=== PATIENT | male | born 1950 | race Caucasian/White ===

== ENCOUNTER 2023-07-30 12:25 | Outpatient (OUT) | payer OTHER, SELFPAY ==
[2023-07-30 13:43] LABS: Basophils Absolute Auto 0.1 10^3/uL (0.0-0.1); Basophils Percent Auto 0.7 % (0.2-2.0); Eosinophils Absolute Auto 0.5 10^3/uL (0.0-0.7); Eosinophils Percent Auto 4.8 % (0.9-7.0); Hematocrit 39.6 % (42.0-54.0); Hemoglobin 12.8 g/dL (14.0-18.0); Immature Granulocytes Abs Auto 0.03 10^3/uL (0.00-0.03); Immature Granulocytes Pct Auto 0.3 % (0.0-0.5); Lymphocytes Absolute Auto 2.3 10^3/uL (1.2-3.8); Mean Corpuscular HGB Conc 32.3 g/dL (29.9-35.2); Mean Corpuscular Volume 95.9 fL (80.0-94.0); Mean Platelet Volume 10.6 fL (9.5-13.5); Monocytes Absolute Auto 0.7 10^3/uL (0.3-0.8); Monocytes Percent Auto 6.7 % (1.7-12.0); Neutrophils Absolute Auto 6.4 10^3/uL (1.4-6.5); Neutrophils Percent Auto 64.5 % (43.0-75.0); Platelet Count 221 10^3/uL (150-450); Red Blood Count 4.13 10^6/uL (4.70-6.10); Red Cell Distribution Width 13.3 % (11.0-15.0)
[2023-07-30 14:50] LABS: Anion Gap 10.8; Calcium 8.6 mg/dL (8.5-10.1); Carbon Dioxide 28.7 mmol/L (21.0-32.0); Chloride 103 mmol/L (98-107); Estimated GFR (African America 49 (>=60); Estimated GFR (Non-African Ame 40 (>=60); Glucose 137 mg/dL (74-106); Potassium 4.5 mmol/L (3.5-5.1); Sodium 138 mmol/L (136-145)
== END 2023-07-30 12:26 | disposition home or self-care (01) ==
LOC: LAB 12:32
PROVIDERS: PCP Family Medicine; Visit Provider Internal Medicine Cardiovascular Disease
DX: I48.91 Unspecified atrial fibrillation (principal)
CPT/HCPCS: 36415; 80048; 85025

== ENCOUNTER 2023-10-13 06:51 | Outpatient (OUT) | payer OTHER, SELFPAY ==
--- OUTSIDE RECORDS SUMMARY | 2023-10-13 06:56 | XMS_ITS | CCD ---
Author Name Unknown Address [address] [place] [address] Organization [facility] Care Team Providers Care Machine Lead Burner Name Role Phone PHYSICIAN, DEFAULT Unavailable Unavailable PHYSICIAN, DEFAULT Unavailable Unavailable Jonnathan Amaya Attending Unavailable Iker Harrison Primary Care Unavailable Iker Harrison Unavailable Unavailable Unavailable Iker Harrison Primary Care Physician [phone] SHEKH[address] ., DR DONG Primary Care Unavailable HOY ., DR DONG Admitting Unavailable HOY ., DR DONG Attending Unavailable HOY ., DR DONG Consulting Unavailable FAWWAD, TRONCOSO H Attending Unavailable FAWWAD, TRONCOSO H Admitting Unavailable HOY ., DR DONG Primary Care Unavailable HOY ., DR DONG Primary Care Unavailable JONES ., DR ELLIS Consulting Unavailable JONES ., DR ELLIS Admitting Unavailable JONES ., DR ELLIS Attending Unavailable HOY ., DR DONG Primary Care Unavailable HOY ., DR DONG Admitting Unavailable HOY ., DR DONG Primary Care Unavailable HOY ., DR DONG Attending Unavailable HOY ., DR DONG Consulting Unavailable FAWWAD, TRONCOSO H Attending Unavailable FAWWAD, TRONCOSO H Admitting Unavailable HOY ., DR DONG Primary Care Unavailable FAWWAD, TRONCOSO H Attending Unavailable FAWWAD, TRONCOSO H Admitting Unavailable HOY ., DR DONG Primary Care Unavailable PERLA HUNTERA Admitting Unavailable GAVINO HUNTER Attending Unavailable GAVINO HUNTER Consulting Unavailable HOY ., DR DONG Primary Care Unavailable FAWWAD, TRONCOSO H Admitting Unavailable FAWWAD, TRONCOSO H Attending Unavailable HOY ., DR DONG Primary Care Unavailable FAWWAD, TRONCOSO H Attending Unavailable FAWWAD, TRONCOSO H Admitting Unavailable HOY ., DR DONG Primary Care Unavailable FAWWAD, TRONCOSO H Attending Unavailable FAWWAD, TRONCOSO H Admitting Unavailable HOY ., DR DONG Primary Care Unavailable HOY ., DR DONG Primary Care Unavailable FAWWAD, TRONCOSO H Attending Unavailable FAWWAD, TRONCOSO H Admitting Unavailable HOY ., DR DONG Primary Care Unavailable FAWWAD, TRONCOSO H Attending Unavailable FAWWAD, TRONCOSO H Admitting Unavailable HOY ., DR DONG Primary Care Unavailable FAWWAD, TRONCOSO H Attending Unavailable FAWWAD, TRONCOSO H Admitting Unavailable FAWWAD, TRONCOSO H Attending Unavailable FAWWAD, TRONCOSO H Admitting Unavailable HOY ., DR DONG Primary Care Unavailable HOY ., DR DONG Primary Care Unavailable HOY ., DR DONG Admgil Unavailable HOY ., DR DONG Attending Unavailable HOY ., DR DONG Consulting Unavailable HOY ., DR DONG Primary Care Unavailable GAVINO HUNTER Consulting Unavailable ELSAPERLAA Admitting Unavailable GAVINO HUNTER Attending Unavailable HOY ., DR DONG Primary Care Unavailable MARKER ., DR BRIONES Admitting Unavailable MARKER ., DR BRIONES Attending Unavailable MARKER ., DR BRIONES Consulting Unavailable MARLENI MAHAJAN Consulting Unavailable NICK CHAIREZ Consulting Unavailable HAY ., DR GOMEZ Admitting Unavailable HOY ., DR DONG Primary Care Unavailable ZIEBER, DR TONY Wyatt Consulting Unavailable HAY ., DR GOMEZ Attending Unavailable RUSTAM ., SAYRA CALVO Consulting Unavailrhona e HOY ., DR DONG Admgil Unavailable HOY ., DR DONG Primary Care Unavailable HOY ., DR DONG Attending Unavailable HOY ., DR DONG Consulting Unavailable GONCALVES ., DR RONIT West Consulting Unavailable RADHA RODRIGUEZ Consulting Unavailable MARI SO Consulting Unavailable ELSAGAVINO RITTER Consulting Unavailable FERNANDO GONZÁLES Consulting Unavailable AMEYA TANNER Consulting Unavailable HOY ., DR DONG Admitting Unavailable HOY ., DR ODNG Primary Care Unavailable HOY ., DR DONG Attending Unavailable HOY ., DR DONG Admgil Unavailable HOY ., DR DONG Primary Care Unavailable HOY ., DR DONG Attending Unavailable HOY ., DR DONG Consulting Unavailable ZIEBER, DR JIMENEZ R Consulting Unavailable SHEKHAR ., DR DONG Primary Care Unavailable SHAIKH Ankit REYNOLDS Attending Unavailable SHAIKH Ankit REYNOLDS Admitting Unavailable Caleb JONES Attending Unavailable Willie Vargas Attending Unavailab Willie Marinelli Admitting Unavailab Iker Ziegler Primary Care Unavailable WESLEY SAENZ Attending Unavailable WESLEY SEANZ Admitting Unavailable WESLEY SAENZ Referring Unavailable WESLEY SAENZ Attending Unavailable MYCHAL HICKMAN Attending Unavailable GAVINO HUNTER Attending Unavailable WESLEY SAENZ Attending Unavailable SKYLER BABCOCK Attending Unavailable WESLEY SAENZ Referring Unavailable Unavailable Unavailable Unavailable Allergies Allergy Classification Reported Allergen(s) Allergy Type Date of Onset Reaction(s) Facility (4 sources) Azithromycin; Translations: [Zithromax TABS] Drug Allergy Lip swelling (finding) [place] [id number] Work Phone: (3 sources) Acetaminophen / oxyCODONE; Translations: [acetaminophen-ox ycodone] Drug Allergy 8 Hallucinations (finding) [facility] [place] (2 sources) Azithromycin; Translations: [Zithromax] Drug Allergy 4 [facility] (3 sources) Azithromycin; Translations: [azithromycin] Drug Allergy 1 Swelling of Lip/Tongue/Throat [facility] (1 source) Acetaminophen / oxyCODONE; Translations: [OXYCODONE-ACETAM INOPHEN] Drug Allergy 8 [facility] Repository Medications Current Medications Medication Drug Class(es) Dates Sig (Normalized) Sig (Original) cetirizine hydrochloride 10 mg oral tablet (2 sources) Histamine-1 Receptor Antagonist Start: 12-06-2021 take 1 tablet by mouth once daily cetirizine 10 mg Tab 10 mg = 1 tab(s), Oral, Daily, Refills(s) 0 Start Date: 12/06/21 Status: Ordered cyclobenzaprine hydrochloride 10 mg oral tablet (2 sources) Muscle Relaxant Start: 12-06-2021 take 1 tablet by mouth three times daily as needed for muscle spasms cyclobenzaprine 10 mg Tab 10 mg = 1 tab(s), Oral, TID, PRN for spasm Start Date: 12/06/21 Status: Ordered digoxin 0.125 mg oral tablet (6 sources) Cardiac Glycoside Start: 01-19-2021 take 1 tablet by mouth once daily digoxin 125 mcg (0.125 mg) Tab mcg tab(s), Oral, Daily, Refills(s) 0 Start Date: 01/19/21 Status: Ordered Start: 01-19-2021 take 1 tablet by lou th once daily digoxin 125 mcg (0.125 mg) Tab mcg tab(s), Oral, Daily, Refills(s) 0 Start Date: 01/19/21 Status: Ordered Start: 10-14-2018 take 0.125 mg by lou th once daily Digoxin Active 0.125 MG Oral Daily October 14, 2018 1:48pm take 1 tablet by lou th once daily Digoxin 125 MCG Oral Tablet TAKE 1 TABLET DAILY. Quantity: 90 Refills: 3 Ordered: 04-Sep-2021 DO Active Humalog KwikPen (2 sources) Start: 12-06-2021 Humalog KwikPe n 15 unit(s), SubCutaneous, Refills(s) 0 Start Date: 12/06/21 Status: Ordered insulin glargine 100 unt/ml injectable solution (4 sources) Insulin Analog Start: 06-13-2021 Insulin Glargi ne (Lantus U-100 Insulin) 100 unit/mL solution Active 0 .ROUTE .COMPLEX June 13, 2021 12:00am 40-60 at night depending on blood sugar Start: 12-14-2019 inject 60 [IU] by jeffries bcutaneous injection once daily at bedtime Lantus 60 unit(s), SubCutaneous, Once a day (at bedtime) Start Date: 12/14/19 Status: Ordered Lantus 100 UNIT/ ML Subcutaneous Solution USE DIRECTED. Quantity: 0 Refills: 0 Ordered: 04-Sep-2021 DO Active 3 ml insulin lispro 100 unt/ml pen injector (3 sources) Insulin Analog Start: 10-14-2018 inject 25 [IU] by subcutaneous injection twice daily Insulin Lispro Active 25 UNIT Subcutaneous Twice daily October 14, 2018 1:48pm Start: 10-14-2018 Insulin Lispro (Humalog Kwikpen Insulin) 100 unit/mL Insulin Pen Active 0 .ROUTE .COMPLEX October 14, 2018 1:00am 10-15 with meals depending on blood sugar lisinopril 2.5 mg oral tablet (7 sources) Angiotensin Converting Enzyme Inhibitor Start: 12-06-2021 take 1 tablet by mouth once daily lisinopril 2.5 mg Tab 2.5 mg = 1 tab(s), Oral, Daily, Refills(s) 0 Start Date: 12/06/21 Status: Ordered Start: 10-14-2018 take 2.5 mg by mouth once cole y Lisinopril Active 2.5 MG Oral Daily October 14, 2018 1:48pm Start: 10-14-2018 take 10 mg by mouth once daily Lisinopril Active 10 MG PO Daily October 14, 2018 1:00am take 1 tablet by lou th once daily Lisinopril 10 MG Oral Tablet Take 1 tablet daily Quantity: 90 Refills: 3 Ordered: 05-Jun-2021 Chester Ahn DO Active metFORMIN hydrochloride 1000 mg oral tablet (6 sources) Biguanide Start: 10-14-2018 take 1000 mg by mouth once daily Metformin Active 1000 MG Oral Daily October 14, 2018 1:48pm Start: 10-14-2018 take 1000 mg by mout h twice daily metformin 1,000 mg, Oral, BID Start Date: 12/14/19 Status: Ordered take 1 tablet by lou th every twelve hours metFORMIN HCl - 1000 MG Oral Tablet TAKE 1 TABLET EVERY 12 HOURS. Quantity: 0 Refills: 0 Ordered: 04-Sep-2021 DO Active metoprolol tartrate 50 mg oral tablet (6 sources) beta-Adrenergic Jose Start: 12-06-2021 take 1 tablet by mouth twice daily Metoprolol tartrate 50 mg Tab 50 mg = 1 tab(s), Oral, BID, Refills(s) 0 Start Date: 12/06/21 Status: Ordered Start: 10-14-2018 take 50 mg by mouth twice cole y Metoprolol Tartrate Active 50 MG Oral Twice daily October 14, 2018 1:48pm take 1 tablet by lou th once daily Metoprolol Tartrate 50 MG Oral Tablet TAKE 1 TABLET EVERY 12 HOURS DAILY. Quantity: 180 Refills: 3 Ordered: 04-Sep-2021 DO Active nitroglycerin 0.4 mg sublingual tablet (3 sources) Nitrate Vasodilator Start: 10-14-2018 Nitroglycerin Active 0.4 MG Sublingual every 5 to 15 minutes October 14, 2018 1:48pm pantoprazole 40 mg extended release oral tablet (6 sources) Proton Pump Inhibitor Start: 12-14-2019 take 40 mg by mouth once daily pantoprazole 40 mg, Oral, Daily Start Date: 12/14/19 Status: Ordered Start: 10-14-2018 take 40 mg by mouth once daily Pantoprazole Active 40 MG Oral Daily October 14, 2018 1:48pm prazosin 2 mg oral capsule (1 source) alpha-Adrenergic Jose Start: 06-20-2021 take 2 mg by mouth once daily at bedtime Prazosin Active 2 MG PO Daily at bedtime June 20, 2021 12:00am sertraline 100 mg oral tablet (4 sources) Serotonin Reuptake Inhibitor Start: 06-20-2021 Zoloft 100 mg Tab as directed, Refills(s) 0 Start Date: 12/06/21 Status: Ordered simvastatin 20 mg oral tablet (6 sources) HMG-CoA Reductase Inhibitor Start: 10-14-2018 take 20 mg by mouth once daily at bedtime simvastatin 20 mg, Oral, Once a day (at bedtime) Start Date: 12/14/19 Status: Ordered tamsulosin hydrochloride 0.4 mg oral capsule (3 sources) alpha-Adrenergic Jose Start: 12-14-2019 take 1 capsule by mouth once daily tamsulosin 0.4 mg Cap 0.4 mg = 1 cap(s), Oral, Daily Start Date: 12/14/19 Status: Ordered traZODone hydrochloride 50 mg oral tablet (4 sources) Serotonin Reuptake Inhibitor Start: 06-20-2021 take 1 tablet by mouth once daily at bedtime traZODONE 50 mg Tab 50 mg = 1 tab(s), Oral, Once a day (at bedtime), Refills(s) 0 Start Date: 12/06/21 Status: Ordered Warfarin (6 sources) Vitamin K Antagonist Start: 12-14-2019 warfarin See Instructions, 2 mg as directed Start Date: 12/14/19 Status: Ordered Start: 10-14-2018 take 2 mg by mouth once daily Warfarin Active 2 MG Oral Daily October 14, 2018 1:48pm Warfarin Sodium 2 MG Oral Tablet as directed by [facility] Quantity: 0 Refills: 0 Ordered: 04-Sep-2021 DO Active Completed/Discontinued Medications Medication Drug Class(es) Dates Sig (Normalized) Sig (Original) cholecalciferol 0.05 mg oral tablet (1 source) Vitamin D take 1 tablet by mouth once daily Vitamin D3 50 MCG (1999) Oral Tablet Take 1 tablet daily Quantity: 0 Refills: 0 Ordered: 04-Sep-2021 DO Active insulin aspart, human 100 unt/ml injectable solution (1 source) Insulin Analog NovoLOG 100 UNIT /ML Subcutaneous Solution INJECT SUBCUTANEOUSLY DIRECTED. Quantity: 0 Refills: 0 Ordered: 04-Sep-2021 DO Active Problems Active Problems Problem Classification Problem Date Documented Da te Episodic/Chronic Anxiety disorders (4 sources) Posttraumatic stress disorder; Translations: [Anxiety disorder, unspecified] Onset: 06-13-2022 12-14-2019 Chronic Cardiac dysrhythmias (7 sources) Chronic atrial fibrillation; Translations: [Atrial fibrillation] Onset: 06-19-2022 12-14-2019 Chronic Chronic kidney disease (2 sources) Chronic kidney disease stage 3 12-06-2021 Chronic Chronic kidney disease (2 sources) Chronic kidney disease; Translations: [Chronic kidney disease, stage 3a] Onset: 12-31-2022 Chronic obstructive pulmonary disease and bronchiectasis (7 sources) Chronic obstructive lung disease; Translations: [Chronic obstructive pulmonary disease, unspecified] Onset: 01-28-2022 12-14-2019 Chronic Congestive heart failure; nonhypertensive (8 sources) Congestive heart failure; Translations: [Heart failure, unspecified] Onset: 09-25-2022 12-06-2021 Chronic Coronary atherosclerosis and other heart disease (5 sources) Coronary arteriosclerosis; Translations: [History of myocardial infarction] Onset: 09-25-2022 12-14-2019 Chronic Diabetes mellitus with complications (4 sources) Type 2 diabetes mellitus with hypoglycemia without coma; Translations: [TYP 2 DM W/HYPOGLYCEMIA W/O COMA] Onset: 06-18-2022 Chronic Diabetes mellitus without complication (5 sources) Diabetes mellitus; Translations: [Diabetes mellitus without mention of complication, type II or unspecified type, not stated as uncontrolled] Onset: 06-13-2022 12-14-2019 Chronic Diabetes mellitus without complication (1 source) Other abnormal glucose; Translations: [OTHER ABNORMAL GLUCOSE] Onset: 09-25-2022 Episodic Diseases of white blood cells (1 source) Elevated white blood cell count, unspecified; Translations: [ELEVATED WHITE BLOOD CELL COUNT UNS] Onset: 06-13-2022 Chronic Disorders of lipid metabolism (5 sources) Hyperlipidemia; Translations: [Other and unspecified hyperlipidemia] Onset: 09-25-2022 12-14-2019 Chronic Diverticulosis and diverticulitis (1 source) Diverticulosis of intestine, part unspecified, without perforation or abscess without bleeding; Translations: [DVRTCLOS PRT UNS NO PERF/ABSC NO BL] Onset: 05-03-2022 Chronic Essential hypertension (5 sources) Benign essential hypertension; Translations: [Benign essential hypertension] Onset: 06-19-2022 12-14-2019 Chronic Fluid and electrolyte disorders (2 sources) Hyperkalemia 12-06-2021 Episodic Genitourinary symptoms and ill-defined conditions (4 sources) Microscopic hematuria; Translations: [Nocturia] 12-14-2019 Episodic Heart valve disorders (1 source) Mitral valve regurgitation; Translations: [Mitral valve disorders] Chronic Hyperplasia of prostate (6 sources) Benign prostatic hypertrophy with outflow obstruction; Translations: [Benign prostatic hyperplasia with lower urinary tract symptoms] Onset: 01-15-2022 01-17-2020 Chronic Hypertension with complications and secondary hypertension (5 sources) Hypertensive heart disease with heart failure; Translations: [HTN HEART DISEASE W/HEART FAIL] Onset: 09-25-2022 Chronic Mood disorders (3 sources) Depressive disorder; Translations: [Depression] 12-14-2019 Chronic Nutritional deficiencies (4 sources) Vitamin D deficiency, unspecified; Translations: [VITAMIN D DEFICIENCY UNSPECIFIED] Onset: 09-23-2022 Chronic Nutritional deficiencies (1 source) Iron deficiency; Translations: [IRON DEFICIENCY] Onset: 09-25-2022 Episodic Osteoarthritis (2 sources) Arthritis 12-14-2019 Chronic Other aftercare (1 source) Drug therapy finding; Translations: [Long-term (current) use of other medications] Episodic Other aftercare (2 sources) Long-term current use of anticoagulant 01-17-2020 Episodic Other aftercare (5 sources) Encounter for therapeutic drug level monitoring; Translations: [ENC THERAPEUTC DRUG LEVL MONITORING] Onset: 01-17-2022 Episodic Other aftercare (1 source) prison (current) use of anticoagulants; Translations: [MORTAR MAKER CURRNT USE ANTICOAGULANTS] Onset: 11-18-2022 Episodic Other circulatory disease (1 source) Elevated blood pressure; Translations: [Elevated blood-pressure reading, without diagnosis of hypertension] 06-13-2021 Episodic Other injuries and conditions due to external causes (2 sources) Injury of head 12-14-2019 Episodic Other nervous system disorders (2 sources) H/O: migraine 12-14-2019 Episodic Other nutritional; endocrine; and metabolic disorders (1 source) Obesity; Translations: [Obesity, unspecified] Chronic Other nutritional; endocrine; and metabolic disorders (2 sources) Body mass index 30+ - obesity 12-19-2021 Chronic Other nutritional; endocrine; and metabolic disorders (1 source) Morbid (severe) obesity due to excess calories; Translations: [MORBID SEVERE OBES D/T EXCESS JACKLYN] Onset: 06-19-2022 Chronic Other nutritional; endocrine; and metabolic disorders (1 source) Body mass index (BMI) 30.0-30.9, adult; Translations: [BODY MASS INDEX BMI 30.0-30.9 ADULT] Onset: 06-19-2022 Chronic Other nutritional; endocrine; and metabolic disorders (1 source) Body mass index (BMI) 40.0-44.9, adult; Translations: [BODY MASS INDEX BMI 40.0-44.9 ADULT] Onset: 05-03-2022 Chronic Other nutritional; endocrine; and metabolic disorders (1 source) Overweight; Translations: [OVERWEIGHT] Onset: 09-25-2022 Episodic Other screening for suspected conditions (not mental disorders or infectious disease) (2 sources) Other specified abnormal findings of blood chemistry; Translations: [Encounter for screening for malignant neoplasm of prostate] Onset: 09-25-2022 Episodic Other skin disorders (3 sources) Actinic keratosis; Translations: [Actinic keratosis] Onset: 12-19-2021 Episodic Phlebitis; thrombophlebitis and thromboembolism (12 sources) Deep venous thrombosis of lower extremity; Translations: [H/O: Deep vein thrombosis] Onset: 12-17-2021 12-14-2019 Episodic Pulmonary heart disease (2 sources) Chronic pulmonary embolism 12-06-2021 Chronic Residual codes; unclassified (2 sources) Dependent edema 12-06-2021 Episodic Residual codes; unclassified (4 sources) Family history of prostate cancer 01-17-2020 Episodic Residual codes; unclassified (4 sources) Edema, unspecified; Translations: [EDEMA UNSPECIFIED] Onset: 11-13-2022 Episodic Suicide and intentional self-inflicted injury (1 source) Suicidal thoughts; Translations: [Suicidal ideations] 06-13-2021 Episodic Syncope (5 sources) Syncope and collapse; Translations: [SYNCOPE AND COLLAPSE] Onset: 06-10-2022 Episodic Unclassified (2 sources) Finding of sensation of bladder 12-14-2019 Unclassified (1 source) CONTACT W/AND (SUSP) EXPOS COVID-19; Translations: [CONTACT W/AND (SUSP) EXPOS COVID-19] Onset: 06-13-2022 Unclassified (2 sources) Longstanding persistent atrial fibrillation; Translations: [Longstanding persistent atrial fibrillation] Onset: 08-06-2023 Past or Other Problems Problem Classification Problem Date Documented Date Episodic/Chronic Cardiac dysrhythmias (1 source) Bradycardia, unspecified; Translations: [BRADYCARDIA UNSPECIFIED] Onset: 06-13-2022 Episodic E Codes: Fall (1 source) Unspecified fall, initial encounter; Translations: [UNSPECIFIED FALL INITIAL ENCOUNTER] Onset: 06-19-2022 Episodic Immunizations and screening for infectious disease (1 source) Encounter for immunization; Translations: [ENCOUNTER FOR IMMUNIZATION] Onset: 06-13-2022 Episodic Intracranial injury (4 sources) Concussion with loss of consciousness of 30 minutes or less, initial encounter; Translations: [CONCUSSION W/LOC 30 MIN/< INIT ENC] Onset: 05-06-2022 Episodic Malaise and fatigue (1 source) Weakness; Translations: [WEAKNESS] Onset: 06-13-2022 Episodic Open wounds of extremities (1 source) Unspecified open wound of right great toe with damage to nail, initial encounter; Translations: [UNS OPN WND RT GRT TOE W/DMG NL INT] Onset: 06-19-2022 Episodic Other aftercare (1 source) Other skilled nursing (current) drug therapy; Translations: [OTH RESIDENTIAL CURRENT DRUG THERAPY] Onset: 06-19-2022 Episodic Other aftercare (1 source) prison (current) use of insulin; Translations: [RESIDENTIAL CURRENT USE OF INSULIN] Onset: 06-19-2022 Episodic Other aftercare (1 source) prison (current) use of oral hypoglycemic drugs; Translations: [RESIDENTIAL USE ORAL HYPOGLYCEMIC DX] Onset: 06-19-2022 Episodic Other circulatory disease (1 source) Orthostatic hypotension; Translations: [ORTHOSTATIC HYPOTENSION] Onset: 06-19-2022 Episodic Other fractures (1 source) Fracture of coccyx, initial encounter for closed fracture; Translations: [FX COCCYX INITIAL CLOS FRACTURE] Onset: 06-13-2022 Episodic Other injuries and conditions due to external causes (3 sources) Unspecified injury of head, initial encounter; Translations: [UNSPECIFIED INJURY HEAD INITIAL ENC] Onset: 05-02-2022 Episodic Other injuries and conditions due to external causes (1 source) Other specified injuries of head, initial encounter; Translations: [OTH SPEC INJURIES HEAD INITIAL ENC] Onset: 05-03-2022 Episodic Other lower respiratory disease (1 source) Personal history of pneumonia (recurrent); Translations: [PERSONAL HX OF PNEUMONIA RECURRENT] Onset: 06-19-2022 Episodic Residual codes; unclassified (1 source) Acquired absence of other specified parts of digestive tract; Translations: [ACQ ABSENCE OTH PART DIGESTV TRACT] Onset: 06-19-2022 Episodic Residual codes; unclassified (1 source) Family history of malignant neoplasm of prostate; Translations: [FAMILY HX MALIG NEOPLASM PROSTATE] Onset: 01-17-2022 Episodic Screening and history of mental health and substance abuse codes (2 sources) Ex-smoker; Translations: [Personal history of tobacco use] Onset: 06-13-2022 Episodic Comment on above: QUIT CIGS 1982; Superficial injury; contusion (1 source) Contusion of left shoulder, initial encounter; Translations: [CONTUSION LEFT SHOULDER INITIAL ENC] Onset: 05-03-2022 Episodic Results Test Name Value Interpretation Reference Range Facility Office Visiton 10-07-2023 Follow-up visit [id number] Kim Garrison 1950 M Date Provider Department Center 10/07/2023 Ben-WESLEY SAENZ YADIR[facility] Family History Problem Relation Age of Onset Coronary artery disease Mother Coronary artery disease Father Heart attack Father Family Status - Relation Status Age at Mother Father Level of Service:[id number] [place] OFFICE/OUTPATIENT ESTABLISHED HIGH MDM 40 MIN Normal [facility] 08-06-2023 [facility] Electrophysiology Consult Note Reason for visit: Syncope/ Afib HPI: Kim Garrison is a 73 y.o. year old with past medical history of HLD and Dx of Afib who has never been cardioverted for Afib. He complains of syncope in 07/2022 and a repeat one in December. As far as his Afib is concerned, he was fiorst Dx with Afib in 2013. Lives with brother. Able to do regular shopping but gets tired when he exerts himself. PMH: Past Medical History: Diagnosis Date A-fib (CMS/HCC) Bradycardia Diabetes mellitus (CMS/HCC) HLD (hyperlipidemia) Hypertension Syncope PSH: Past Surgical History: Procedure Laterality Date CHOLECYSTECTOMY MULTIPLE TOOTH EXTRACTIONS ROTATOR CUFF REPAIR SH: Social Determinants of Health Tobacco Use: Medium Risk (06/20/2023) Patient History Smoking Tobacco Use: Former Smokeless Tobacco Use: Never Passive Exposure: Not on file Alcohol Use: Not on file Financial Resource Strain: Not on file Food Insecurity: Not on file Transportation Needs: Not on file Physical Activity: Not on file Stress: Not on file Social Connections: Not on file Intimate Partner Violence: Not on file Depression: Not on file Housing Stability: Not on file Allergies: Allergies Allergen Reactions Oxycodone-Acetaminophe n Hallucinations Zithromax [Azithromycin] Weight: 96.6kg Visit Vitals Smoking Status Former Meds: Current Outpatient Medications on File Prior to Visit Medication Sig Dispense Refill cetirizine (ZyrTEC) 10 mg tablet Take 10 mg by mouth. Eliquis 5 mg tablet Take 5 mg by mouth in the morning and at bedtime. furosemide (Lasix) 20 mg tablet Take 1 tablet (20 mg) by mouth in the morning. (Patient taking differently: Take 20 mg by mouth every other day.) 90 tablet 3 HumaLOG KwikPen Insulin 100 unit/mL injection 10 Units. insulin glargine (Lantus) 100 unit/mL (3 mL) pen Inject 30 Units under the skin. metoprolol tartrate (Lopressor) 50 mg tablet every 12 (twelve) hours. nitroglycerin (Nitrostat) 0.[address] 0.4 mg under the tongue every 5 (five) minutes if needed for chest pain. sertraline (Zoloft) 100 mg tablet Take 100 mg by mouth in the morning. simvastatin (Zocor) 20 mg tablet Take 20 mg by mouth at bedtime. tamsulosin (Flomax) 0.4 mg 24 hr capsule Take 0.4 mg by mouth. No current facility-administered medications on file prior to visit. ROS: Cardio Basic Cardiovascular Symptoms: no lightheadedness, no leg edema, no syncope, no orthopnea, no PND, no claudication, Constitutional Constitutional: no fever, no night sweats, no significant weight gain, no significant weight loss, no exercise intolerance Eyes Eyes: no dry eyes, no irritation, no vision change ENMT Ears: no difficulty hearing, no ear pain Nose: no frequent nosebleeds, Mouth/Throat: no sore throat, no bleeding gums, no snoring, no dry mouth, no mouth ulcers, no oral abnormalities, no teeth problems Respiratory Respiratory: no cough, no wheezing, no coughing up blood, no sleep apnea Musculoskeletal Musculoskeletal: no muscle aches, no muscle weakness, joint pain+, no back pain, no swelling in the extremities Integumentary Skin no rash, no ulcer, no varicosities, no discoloration, no pruritus Neurologic Neurologic: no loss of consciousness, no weakness, no numbness, no seizures, no dizziness, no headaches Psychiatric Psych: no depression, feeling safe in relationship, no alcohol abuse, Hematologic/Lymphatic Hematologic/Lymphatic no swollen glands, no bruising Physical Exam: Constitutional General Appearance: well-nourished, well-developed, appears stated age Level of Distress: comfortable Psychiatric Mental Status: alert, normal affect Orientation: oriented to time, place, and person Insight: good judgement Eyes Lids and Conjunctivae: non-injected, no xanthelasma ENMT Ears: no lesions on external ear Nose: no lesions on external nose Oropharynx: no cyanosis, no pallor Neck Neck: supple, trachea midline Carotid Arteries: bilateral normal upstroke, no bruits Jugular Veins: normal jugular venous pressure Thyroid: not enlarged Lungs Respiratory Effort: unlabored Chest Exam: normal curvature, no thoracic deformity Auscultation: clear, no wheezing, no rales, no rhonchi Cardiovascular Rate And Rhythm: Irregular Heart Sounds: normal S1, normal s2, no gallop Systolic Murmur: not heard Diastolic Murmur: not heard Extremities: no cyanosis, no edema, no peripheral signs of emboli Peripheral Pulses Radial Pulse: normal Abdomen Inspection and Palpation: soft, non distended, no bruit, non tender Musculoskeletal Inspection: no joint swelling Neurologic Gait: normal gait Skin Inspection and Palpation: warm and dry Nails: no clubbing Labs: @LABRESULTS@ No results found for: CHOLESTEROL TOTAL, HDL, LDL CALC, LDL DIRECT, TRIGLYCERIDES, TSH, T3 TOTAL, T4 TOTAL, THYROID PEROXIDASE AB, BNP, BNP, BNP EKG: (more content not included)... [facility] Orders Onlyon 07-30-2023 Orders Only [id number] Kim Garrison 1950 [facility] Provider Department Center 07/30/2023 ALLISON COEL [facility] V[facility] LAB [facility] HeartVAS Family History Problem Relation Age of Onset Coronary artery disease Mother Coronary artery disease Father Heart attack Father Family Status - Relation Status Age at Mother Father [facility] Telemedicineon 06-24-2023 Telemedicine [id number] Kim Garrison 1950 M [facility] Provider Department Center 06/24/2023 Ben-WESLEY SAENZ YADIRA [facility] Family History Problem Relation Age of Onset Coronary artery disease Mother Coronary artery disease Father Heart attack Father Family Status - Relation Status Age at Mother Father Level of Service:59200 [place] PHYS/QHP TELEPHONE EVALUATION 11-[address] [facility] Office Visiton 06-20-2023 Follow-up visit [id number] Kim Garrison 1950 M Date Provider Department Center 06/20/2023 SKYLER TATUM YADIRA [facility] Family History Problem Relation Age of Onset Coronary artery disease Mother Coronary artery disease Father Heart attack Father Family Status - Relation Status Age at Mother Father Level of Service:88520 [place] OFFICE/OUTPATIENT ESTABLISHED MOD MDM 30-39 MIN Reason for Visit and Comments: Follow-up [780997] [facility] Provider Letteron 04-14-2023 Provider Letter April 14, 2023 KIM GARRISON [address] [place] [address] : 1950 Dear Kim , We have been trying to reach you with no success, your voice mail box was full. You had an appointment with Dr. Jones on 04/14/23 which will need to be rescheduled as you left without seeing the provider. Please contact the office at the number listed below to get this appointment rescheduled at your earliest convenience. Thank you for your prompt attention to this matter. Sincerely, [facility] [address], [place] [address] Normal [facility] Office Visiton 12-31-2022 Follow-up visit [id number] Kim Garrison 1950 [facility] Provider Department Center 12/31/2022 GAVINO REYNOLDS YADIRA [facility] Family History Problem Relation Age of Onset Coronary artery disease Mother Coronary artery disease Father Heart attack Father Family Status - Relation Status Age at Mother Father Level of Service:34059 [place] OFFICE/OUTPATIENT ESTABLISHED MOD MDM 30-39 MIN Normal [facility] Telephoneon 12-12-2022 Telephone [id number] Kim Garrison 1950 [facility] Provider Department Center 12/12/2022 GAVINO REYNOLDS [facility]. Family History Problem Relation Age of Onset Coronary artery disease Mother Coronary artery disease Father Heart attack Father Family Status - Relation Status Age at Mother Father Normal [facility] PROF CHEM 8 (BAS METB)on Anion gap [Moles/Vol] 12.9 mmol/L Normal [facility] Comment on above: Performed By: #### C MREP #### [facility] [address] [address] [address] Caroline Bell Calcium [Mass/Vol] 9.4 mg/dL Normal 8.5-10.1 [facility] Comment on above: Performed By: #### C MREP #### [facility] [address] [address] [address] Caroline Bell Chloride [Moles/Vol] 106 mmol/L Normal 98-107 [facility] Comment on above: Performed By: #### C MREP #### [facility] [address] [address] [address] Caroline Bell CO2 [Moles/Vol] 28.0 mmol/L Normal 21.0-32.0 [facility] Comment on above: Performed By: #### C MREP #### [facility] [address] [address] [address] Caroline Bell Creatinine [Mass/Vol] 1.63 mg/dL Critically high 0.70-1.30 [facility] Comment on above: Performed By: #### C MREP #### [facility] [address] [address] [address] Caroline Bell EGFR-AF EMIRATI 51 mL/min/1.73m2 Critically low >=60 [facility] Comment on above: Performed By: #### C MREP #### [facility] [address] [address] [address] Caroline Bell EGFR-NON AF EMIRATI 42 mL/min/1.73m2 Critically low >=60 [facility] Comment on above: Performed By: #### C MREP #### [facility] [address] [address] [address] Caroline Bell Glucose [Mass/Vol] 79 mg/dL Normal 74-106 [facility] Comment on above: Performed By: #### C MREP #### [facility] [address] [place] [address] Dr. Caroline Bell Potassium [Moles/Vol] 4.9 mmol/L Normal 3.5-5.1 [facility] Comment on above: Performed By: #### C MREP #### [facility] [address] [address] [address] Caroline Bell Sodium [Moles/Vol] 142 mmol/L Normal 136-145 [facility] Comment on above: Performed By: #### C MREP #### [facility] [address] [address] [address] Caroline Bell Urea nitrogen [Mass/Vol] 32.0 mg/dL Critically high 7.0-18.0 [facility] Comment on above: Performed By: #### C MREP #### [facility] [address] [address] [address] Caroline Bell Urea nitrogen/Creatinine [Mass ratio] 19.6 mg/mg Normal [facility] Comment on above: Performed By: #### C MREP #### [facility] [address] [address] [address] Caroline Bell Office Visiton 11-13-2022 Follow-up visit [id number] Kim Garrison 1950 M Date Provider Department Center 11/13/2022 3848-MYCHAL HICKMAN [facility] Family History Problem Relation Age of Onset Coronary artery disease Mother Coronary artery disease Father Heart attack Father Family Status - Relation Status Age at Mother Father Level of Service:33475 [place] OFFICE/OUTPATIENT ESTABLISHED MOD MDM 30-39 MIN Reason for Visit and Comments: Follow-up [706482] - 3 months Normal [facility] PROF CHEM 8 (BAS METB)on Anion gap [Moles/Vol] 14.7 mmol/L Normal [facility] Comment on above: Performed By: #### I NSULIN #### [facility] [address] [place] [address] Dr. Caroline Bell Calcium [Mass/Vol] 9.1 mg/dL Normal 8.5-10.1 [facility] Comment on above: Performed By: #### I NSULIN #### [facility] [address] [place] [address] Dr. Caroline Bell Chloride [Moles/Vol] 107 mmol/L Normal 98-107 [facility] Comment on above: Performed By: #### I NSULIN #### [facility] [address] [address] [address] Caroline Bell CO2 [Moles/Vol] 26.4 mmol/L Normal 21.0-32.0 [facility] Comment on above: Performed By: #### I NSULIN #### [facility] [address] [place] [address] Dr. Caroline Bell Creatinine [Mass/Vol] 1.82 mg/dL Critically high 0.70-1.30 [facility] Comment on above: Performed By: #### I NSULIN #### [facility] [address] [place] [address] Dr. Caroline Bell EGFR-AF EMIRATI 45 mL/min/1.73m2 Critically low >=60 [facility] Comment on above: Performed By: #### I NSULIN #### [facility] [address] [address] [address] Caroline Bell EGFR-NON AF EMIRATI 37 mL/min/1.73m2 Critically low >=60 [facility] Comment on above: Performed By: #### I NSULIN #### [facility] [address] [address] [address] Caroline Bell Glucose [Mass/Vol] 324 mg/dL Critically high 74-106 [facility] Comment on above: Performed By: #### I NSULIN #### [facility] [address] [place] [address] Dr. Caroline Bell Potassium [Moles/Vol] 5.1 mmol/L Normal 3.5-5.1 [facility] Comment on above: Performed By: #### I NSULIN #### [facility] [address] [place] [address] Dr. Caroline Bell Sodium [Moles/Vol] 143 mmol/L Normal 136-145 [facility] Comment on above: Performed By: #### I NSULIN #### [facility] [address] [place] [address] Dr. Caroline Bell Urea nitrogen [Mass/Vol] 30.0 mg/dL Critically high 7.0-18.0 [facility] Comment on above: Performed By: #### I NSULIN #### [facility] [address] [place] [address] Dr. Caroline Bell Urea nitrogen/Creatinine [Mass ratio] 16.5 mg/mg Normal [facility] Comment on above: Performed By: #### I NSULIN #### [facility] [address] [place], [place] [id number] Dr. Caroline Bell ECHOCARDIO M/2D COMPLETEon 0 09-27-2022 ECHOCARDIO M/2D COMPLETE Patient: KIM GARRISON Exam Date: 09/27/2022 : 1950 Gender:M Ordering : DR IKER HARRISON . Admission #: [id number] Family : GAVINO HUNTER [facility] Order #: [id number] CLICK HERE TO VIEW EXAM ECHOCARDIOGRAM REPORT PROCEDURE: CARDIO PULMONARY ECHOCARDIO M/2D COMP INDICATIONS: Elevated BNP, congestive heart failure, atrial fibrillation, hypertension, diabetes COMPARISON: None. DESCRIPTION: COMPLETE ECHOCARDIOGRAM Real-time transthoracic echocardiography with 2D, M-mode, spectral and color flow Doppler performed. QUALITY: Technical quality was good. 68 210# BP 128/62 LEFT VENTRICLE: Normal chamber size. Proximal septal hypertrophy (sigmoid septum). LV EF: Normal left ventricular ejection fraction, (>55%). No significant wall motion abnormalities. DIASTOLIC: Not adequately assessed due to heart rhythm. ATRIAL SEPTUM: Inadequately seen. LEFT ATRIUM: Severe dilatation. RIGHT ATRIUM: Mild dilatation. RIGHT VENTRICLE: Mild dilatation. Normal right ventricular systolic function. TRICUSPID VALVE: Normal mobility and thickness. Trivial regurgitation. Doppler studies reveal moderately (45-60) elevated right sided pressures. RVSP 55 mmHg MITRAL VALVE: Normal mobility and thickness. No evidence of mitral valve stenosis. There is no mitral annular calcification. Trivial mitral regurgitation. AORTIC VALVE: Normal trileaflet appearance. No visible sclerosis. Normal leaflet mobility. No evidence of aortic valve stenosis. Trivial aortic regurgitation. AORTIC ROOT: Normal diameter and appearance. PULMONIC VALVE: Normal thickness and mobility. No stenosis. Trivial regurgitation. PERICARDIUM: No evidence of pericardial effusion. IVC: Not well visualized. CONCLUSION: Global left ventricular systolic function is normal; visually estimated ejection fraction is 55 to 60%. No significant wall motion abnormalities. Biatrial enlargement. The right ventricle is mildly dilated with normal systolic function. Moderately elevated right-sided pressures. RVSP 55 mmHg. No significant valvular abnormalities. Adult Echocardiography Procedure Report Left Ventricle LVEDD (3.7 - 5.6 cm): 5.14 cm LVESD (2.2 - 4.0 cm): 4.15 cm LVIVS thickness (0.6 - 1.2 cm): 1.24 cm LVPW thickness (0.5 - 1.0 cm): 0.91 cm LVOT Max Gradient: 1.54 mm[Hg] Peak Velocity (LVOT): 0.62 m/s LVOT Diameter 2.40 cm Left Atrium LA Volume Index (2D A2C): 122.27 ml, 132.80 ml Left Atrium Systolic Dimension: 5.50 cm Mitral Valve Mitral Valve E-Wave Peak Velocity: 0.94 m/s, 1.02 m/s Right Ventricle Aorta AO Root Diam: 3.49 cm Aortic Valve AoV Area (Peak Tawanda): 3.17 cm2, 3.17 cm2 Peak Velocity(Antegrade Flow): 0.89 m/s Peak Gradient(Antegrade Flow): 3.14 mm[Hg] Tricuspid Valve Peak Velocity (Regurgitant Flow): 3.42 m/s Pulmonic Valve Peak Velocity: 0.92 m/s, 0.69 m/s Peak Gradient: 3.35 mm[Hg], 1.90 mm[Hg] Right Atrium Dictated by: Saúl Estrada M.D. on 09/27/2022 at 15:03 Approved by: Saúl Estrada M.D. on 09/27/2022 at 15:06 Normal [facility] INSULINon 09-24-2022 Insulin 19.1 uIU/mL Normal 2.6-24.9 [facility] Comment on above: Performed By: #### I NSULIN #### [facility] [address] [place] [address] Dr. Caroline Bell BNPon 09-23-2022 Natriuretic peptide B (Bld) [Mass/Vol] 2963.0 pg/mL Critically high <=900.0 [facility] Comment on above: Performed By: #### V ITAD, PSASC #### [facility] [address] [place] [address] Dr. Caroline Bell CBC AUTO DIFFon 09-23-2022 BASO # 0.1 103/ul Normal 0.0-0.1 [facility] Comment on above: Performed By: #### P OCGLUC #### [facility] [address] [address] [address] Caroline Bell Basophils/100 WBC (Bld) 0.8 % Normal 0.2-2.0 [facility] Comment on above: Performed By: #### P OCGLUC #### [facility] [address] [place] [address] Dr. Caroline Bell EO # 0.3 103/ul Normal 0.0-0.7 [facility] Comment on above: Performed By: #### P OCGLUC #### [facility] [address] [place] [address] Dr. Caroline Bell Eosinophils/100 WBC (Bld) 4.2 % Normal 0.9-7.0 [facility] Comment on above: Performed By: #### P OCGLUC #### [facility] [address] [place] [address] Dr. Caroline Bell Erythrocyte distribution width (RBC) [Ratio] 14.1 % Normal 11.0-15.0 [facility] Comment on above: Performed By: #### P OCGLUC #### [facility] [address] [place] [address] Dr. Caroline Bell Hematocrit (Bld) [Volume fraction] 41.8 % Critically low 42.0-54.0 [facility] Comment on above: Performed By: #### P OCGLUC #### [facility] [address] [place] [address] Dr. Caroline Bell Hemoglobin (Bld) [Mass/Vol] 12.7 g/dL Critically low 14.0-18.0 [facility] Comment on above: Performed By: #### P OCGLUC #### [facility] [address] [place] [address] Dr. Caroline Bell IG # 0.03 10e3/ul Normal 0.00-0.03 [facility] Comment on above: Performed By: #### P OCGLUC #### [facility] [address] [place] [address] Dr. Caroline Bell IG % 0.4 % Normal 0.0-0.5 [facility] Comment on above: Performed By: #### P OCGLUC #### [facility] [address] [place] [address] Dr. Caroline Bell LYMPH # 1.8 103/ul Normal 1.2-3.8 [facility] Comment on above: Performed By: #### P OCGLUC #### [facility] [address] [place] [address] Dr. Caroline Bell Lymphocytes/100 WBC (Bld) 23.0 % Normal 20.5-60.0 [facility] Comment on above: Performed By: #### P OCGLUC #### [facility] [address] [place] [address] Dr. Caroline Bell MANUAL DIFF REQ NO Normal [facility] Comment on above: Performed By: #### P OCGLUC #### [facility] [address] [place] [address] Dr. Caroline Bell MCH (RBC) [Entitic mass] 29.3 pg Normal 25.9-34.0 [facility] Comment on above: Performed By: #### P OCGLUC #### [facility] [address] [place] [address] Dr. Caroline Bell MCHC (RBC) [Mass/Vol] 30.4 g/dL Normal 29.9-35.2 [facility] Comment on above: Performed By: #### P OCGLUC #### [facility] [address] [place] [address] Dr. Caroline Bell MCV (RBC) [Entitic vol] 96.3 fL Critically high 80.0-94.0 [facility] Comment on above: Performed By: #### P OCGLUC #### [facility] [address] [place] [address] Dr. Caroline Bell MONO # 0.5 103/ul Normal 0.3-0.8 [facility] Comment on above: Performed By: #### P OCGLUC #### [facility] [address] [place] [address] Dr. Caroline Bell Monocytes/100 WBC (Bld) 6.2 % Normal 1.7-12.0 [facility] Comment on above: Performed By: #### P OCGLUC #### [facility] [address] [place] [address] Dr. Caroline Bell NEUT # 5.2 103/ul Normal 1.4-6.5 [facility] Comment on above: Performed By: #### P OCGLUC #### [facility] [address] [place] [address] Dr. Caroline Bell Neutrophils/100 WBC (Bld) 65.4 % Normal 43.0-75.0 [facility] Comment on above: Performed By: #### P OCGLUC #### [facility] [address] [address] [address] Caroline Bell Platelet mean volume (Bld) [Entitic vol] 10.0 fL Normal 9.5-13.5 [facility] Comment on above: Performed By: #### P OCGLUC #### [facility] [address] [address] [address] Caroline Bell PLT 232 103/ul Normal 150-450 [facility] Comment on above: Performed By: #### P OCGLUC #### [facility] [address] [address] [address] Caroline Bell RBC 4.34 106/ul Critically low 4.70-6.10 [facility] Comment on above: Performed By: #### P OCGLUC #### [facility] [address] [address] [address] Caroline Bell WBC 7.9 103/ul Normal 4.0-11.0 [facility] Comment on above: Performed By: #### P OCGLUC #### [facility] [address] [place] [address] Dr. Caroline Bell FREE THYROXINE INDEX T7on FTI 2.05 Normal 1.30-4.50 [facility] Comment on above: Performed By: #### V ITAD, PSASC #### [facility] [address] [address] [address] Caroline Bell T3U 33.0 % Normal 33.0-40.0 [facility] Comment on above: Performed By: #### V ITAD, PSASC #### [facility] [address] [address] [address] Caroline Bell T4 [Mass/Vol] 6.20 ug/dL Normal 4.50-12.10 [facility] Comment on above: Performed By: #### V ITAD, PSASC #### [facility] [address] [address] [address] Caroline Bell GLYCOHEMOGLOBIN A1Con 2022 ADA RECOMMENDATION SEE BELOW Normal [facility] Comment on above: Result Comment: ADA RECOMMENDED LIMIT 4.0 - 6.0 ADA THERAPEUTIC TARGET < 7.0 ACTION SUGGESTED > 7.0 Performed By: #### P OCGLUC #### [facility] [address] [address] [address] Caroline Bell HbA1c (Bld) [Mass fraction] 7.2 % Critically high 4.5-6.2 [facility] Comment on above: Performed By: #### P OCGLUC #### [facility] [address] [address] [address] Caroline Bell LIPID PROFILEon 09-23-2022 CHOL-HDL RATIO NORM SEE BELOW Normal [facility] Comment on above: Result Comment: 3.3 - 4.4 LOW RISK 4.4 - 7.1 AVERAGE RISK 7.1 - 11.0 MODERATE RISK >11.0 HIGH RISK Performed By: #### V ITAD, PSASC #### [facility] [address] [address] [address] Caroline Bell Cholesterol [Mass/Vol] 132 mg/dL Normal <=200 [facility] Comment on above: Performed By: #### V ITAD, PSASC #### [facility] [address] [place] [address] Dr. Caroline Bell Cholesterol in HDL [Mass/Vol] 67 mg/dL Critically high 40-60 [facility] Comment on above: Performed By: #### V ITAD, PSASC #### [facility] [address] [address] [address] Caroline Bell Cholesterol in LDL [Mass/Vol] 54.2 mg/dL Normal [facility] Comment on above: Performed By: #### V ITAD, PSASC #### [facility] [address] [place] [address] Dr. Caroline Bell Cholesterol.total/Ch olesterol in HDL [Mass ratio] 2.0 {ratio} Normal [facility] Comment on above: Performed By: #### V ITAD, PSASC #### [facility] [address] [place] [address] Dr. Caroline Bell HDL NORMAL > or = 60 mg/dl - LO W CARDIOVASCULAR RISK <40 mg/dl - HIGH CARDIOVASCULAR RISK Normal [facility] Comment on above: Performed By: #### V ITJAVI, PSASC #### [facility] [address] [address] [address] Caroline Bell LDL CALC NORMAL SEE BELOW Normal [facility] Comment on above: Result Comment: <100 mg/dl OPTIMAL 100 - 129 mg/dl NEAR OR ABOVE OPTIMAL 130 - 159 mg/dl BORDERLINE HIGH 160 - 189 mg/dl HIGH >190 mg/dl VERY HIGH Performed By: #### V ITAD, PSASC #### [facility] [address] [address] [address] Caroline Bell Triglyceride [Mass/Vol] 54 mg/dL Normal <=150 [facility] Comment on above: Performed By: #### V ITJAVI, PSASC #### [facility] [address] [place] [address] Dr. Caroline Bell VLDL CALC 10.8 mg/dL Normal [facility] Comment on above: Performed By: #### V ITAD, PSASC #### [facility] [address] [place] [address] Dr. Caroline Bell PROF 14(COMP METB)on 023 Albumin [Mass/Vol] 3.8 g/dL Normal 3.4-5.0 [facility] Comment on above: Performed By: #### V ITAD, PSASC #### [facility] [address] [place] [address] Dr. Caroline Bell Albumin/Globulin [Mass ratio] 0.9 {ratio} Normal [facility] Comment on above: Performed By: #### V ITAD, PSASC #### [facility] [address] [place] [address] Dr. Caroline Bell ALP [Catalytic activity/Vol] 99 U/L Normal 46-116 [facility] Comment on above: Performed By: #### V ITAD, PSASC #### [facility] [address] [address] [address] Caroline Bell ALT [Catalytic activity/Vol] 25 U/L Normal 16-63 [facility] Comment on above: Performed By: #### V ITAD, PSASC #### [facility] [address] [place] [address] Dr. Caroline Bell Anion gap [Moles/Vol] 13.2 mmol/L Normal [facility] Comment on above: Performed By: #### V ITAD, PSASC #### [facility] [address] [place] [address] Dr. Caroline Bell AST [Catalytic activity/Vol] 18 U/L Normal 15-37 [facility] Comment on above: Performed By: #### V ITAD, PSASC #### [facility] [address] [place] [address] Dr. Caroline Bell Bilirubin [Mass/Vol] 0.5 mg/dL Normal 0.2-1.0 [facility] Comment on above: Performed By: #### V ITAD, PSASC #### [facility] [address] [place] [address] Dr. Caroline Bell Calcium [Mass/Vol] 9.3 mg/dL Normal 8.5-10.1 [facility] Comment on above: Performed By: #### V ITAD, PSASC #### [facility] [address] [place] [address] Dr. Caroline Bell Chloride [Moles/Vol] 106 mmol/L Normal 98-107 [facility] Comment on above: Performed By: #### V ITAD, PSASC #### [facility] [address] [place] [address] Dr. Caroline Bell CO2 [Moles/Vol] 26.1 mmol/L Normal 21.0-32.0 [facility] Comment on above: Performed By: #### V ITAD, PSASC #### [facility] [address] [place] [address] Dr. Caroline Bell Creatinine [Mass/Vol] 1.59 mg/dL Critically high 0.70-1.30 [facility] Comment on above: Performed By: #### V ITAD, PSASC #### [facility] [address] [place] [address] Dr. Caroline Bell EGFR-AF EMIRATI 52 mL/min/1.73m2 Critically low >=60 [facility] Comment on above: Performed By: #### V ITAD, PSASC #### [facility] [address] [place] [address] Dr. Caroline Bell EGFR-NON AF EMIRATI 43 mL/min/1.73m2 Critically low >=60 [facility] Comment on above: Performed By: #### V ITAD, PSASC #### [facility] [address] [place] [address] Dr. Caroline Bell Globulin (S) [Mass/Vol] 4.2 g/dL Normal [facility] Comment on above: Performed By: #### V ITAD, PSASC #### [facility] [address] [place] [address] Dr. Caroline Bell Glucose [Mass/Vol] 160 mg/dL Normal [facility] Comment on above: Performed By: #### V ITAD, PSASC #### [facility] [address] [place] [address] Dr. Caroline Bell Performed By: #### P OCGLUC #### [facility] [address] [place] [address] Dr. Caroline Bell Potassium [Moles/Vol] 5.3 mmol/L Critically high 3.5-5.1 [facility] Comment on above: Performed By: #### V ITAD, PSASC #### [facility] [address] [place] [address] Dr. Caroline Bell Protein [Mass/Vol] 8.0 g/dL Normal 6.4-8.2 [facility] Comment on above: Performed By: #### V ITAD, PSASC #### [facility] [address] [place] [address] Dr. Caroline Bell Sodium [Moles/Vol] 140 mmol/L Normal 136-145 [facility] Comment on above: Performed By: #### V ITAD, PSASC #### [facility] [address] [place] [address] Dr. Caroline Bell Urea nitrogen [Mass/Vol] 30.0 mg/dL Critically high 7.0-18.0 [facility] Comment on above: Performed By: #### V DIDI, PSASC #### [facility] [address] [place] [address] Dr. Caroline Bell Urea nitrogen/Creatinine [Mass ratio] 18.9 mg/mg Normal [facility] Comment on above: Performed By: #### Milan TOLBERT, PSASC #### [facility] [address] [place] [address] Dr. Caroline Bell TSHon 09-23-2022 TSH 1.076 uIU/mL Normal 0.358-3.740 [facility] Comment on above: Performed By: #### Milan TOLBERT, PSASC #### [facility] [address] [place] [address] Dr. Caroline Bell URIC ACID SERUMon 09-23-2022 Urate [Mass/Vol] 5.9 mg/dL Normal 3.5-7.2 [facility] Comment on above: Performed By: #### Milan TOLBERT, PSASC #### [facility] [address] [place] [address] Dr. Caroline Bell VITAMIN D 25 OHon 09-23-2022 VIT D 25-OH 32.7 ng/mL Normal [facility] Comment on above: Performed By: #### Milan TOLBERT, PSASC #### [facility] [address] [place] [address] Dr. Caroline Bell VIT D RANGES SEE BELOW Normal [facility] Comment on above: Result Comment: <20 ng/mL Vit D deficient 20 - <30 ng/mL Vit D insufficient 30 - 100 ng/mL Vit D sufficient >100 ng/mL Potential Toxicity Performed By: #### V DIDI, PSASC #### [facility] [address] [place] [address] Dr. Caroline Bell CBC AUTO DIFFon 06-18-2022 BASO # 0.1 103/ul Normal 0.0-0.1 [facility] Comment on above: Performed By: #### C BC #### [facility] [address] [place], [place] [id number] Dr. Caroline Bell Basophils/100 WBC (Bld) 0.4 % Normal 0.2-2.0 [facility] Comment on above: Performed By: #### C BC #### [facility] [address] [place] [address] Dr. Caroline Bell EO # 0.2 103/ul Normal 0.0-0.7 [facility] Comment on above: Performed By: #### C BC #### [facility] [address] [place] [address] Dr. Caroline Bell Eosinophils/100 WBC (Bld) 2.0 % Normal 0.9-7.0 [facility] Comment on above: Performed By: #### C BC #### [facility] [address] [place] [address] Dr. Caroline Bell Erythrocyte distribution width (RBC) [Ratio] 14.5 % Normal 11.0-15.0 [facility] Comment on above: Performed By: #### C BC #### [facility] [address] [place] [address] Dr. Caroline Bell Hematocrit (Bld) [Volume fraction] 35.6 % Critically low 42.0-54.0 [facility] Comment on above: Performed By: #### C BC #### [facility] [address] [place] [address] Dr. Caroline Bell Hemoglobin (Bld) [Mass/Vol] 11.4 g/dL Critically low 14.0-18.0 [facility] Comment on above: Performed By: #### C BC #### [facility] [address] [place] [address] Dr. Caroline Bell IG # 0.05 10e3/ul Critically high 0.00-0.03 [facility] Comment on above: Performed By: #### C BC #### [facility] [address] [place] [address] Dr. Caroline Bell IG % 0.4 % Normal 0.0-0.5 [facility] Comment on above: Performed By: #### C BC #### [facility] [address] [place] [address] Dr. Caroline Bell LYMPH # 1.4 103/ul Normal 1.2-3.8 [facility] Comment on above: Performed By: #### C BC #### [facility] [address] [place] [address] Dr. Caroline Bell Lymphocytes/100 WBC (Bld) 12.0 % Critically low 20.5-60.0 [facility] Comment on above: Performed By: #### C BC #### [facility] [address] [place] [address] Dr. Caroline Bell MANUAL DIFF REQ NO Normal [facility] Comment on above: Performed By: #### C BC #### [facility] [address] [place] [address] Dr. Caroline Bell MCH (RBC) [Entitic mass] 29.5 pg Normal 25.9-34.0 [facility] Comment on above: Performed By: #### C BC #### [facility] [address] [place] [address] Dr. Caroline Bell MCHC (RBC) [Mass/Vol] 32.0 g/dL Normal 29.9-35.2 [facility] Comment on above: Performed By: #### C BC #### [facility] [address] [place] [address] Dr. Caroline Bell MCV (RBC) [Entitic vol] 92.2 fL Normal 80.0-94.0 [facility] Comment on above: Performed By: #### C BC #### [facility] [address] [place] [address] Dr. Caroline Bell MONO # 0.7 103/ul Normal 0.3-0.8 [facility] Comment on above: Performed By: #### C BC #### [facility] [address] [place] [address] Dr. Caroline Bell Monocytes/100 WBC (Bld) 5.7 % Normal 1.7-12.0 [facility] Comment on above: Performed By: #### C BC #### [facility] [address] [place] [address] Dr. Caroline Bell NEUT # 9.6 103/ul Critically high 1.4-6.5 [facility] Comment on above: Performed By: #### C BC #### [facility] [address] [place] [address] Dr. Caroline Bell Neutrophils/100 WBC (Bld) 79.5 % Critically high 43.0-75.0 [facility] Comment on above: Performed By: #### C BC #### [facility] [address] [place] [address] Dr. Caroline Bell Platelet mean volume (Bld) [Entitic vol] 10.0 fL Normal 9.5-13.5 [facility] Comment on above: Performed By: #### C BC #### [facility] [address] [place] [address] Dr. Caroline Bell PLT 240 103/ul Normal 150-450 [facility] Comment on above: Performed By: #### C BC #### [facility] [address] [place] [address] Dr. Caroline Bell RBC 3.86 106/ul Critically low 4.70-6.10 [facility] Comment on above: Performed By: #### C BC #### [facility] [address] [place], [place] [address] Dr. Caroline Bell WBC 12.0 103/ul Critically high 4.0-11.0 [facility] Comment on above: Performed By: #### C BC #### [facility] [address] [place], [place] [address] Dr. Caroline Bell CT CSPINE WO CONon 2 CT CSPINE WO CON EXAM: CT CSPINE WO C ON 06/18/2022 12:09 AM EDT OH001 CLINICAL STATEMENT: Syncope COMPARISON: No prior studies are available at the time of dictation. TECHNIQUE: Helically acquired images were obtained of the cervical spine without contrast. AEC is utilized. 2D reformatted images were reviewed FINDINGS: Multilevel degenerative changes are noted. There is no acute fracture or subluxation. There is normal anatomic alignment. There is no prevertebral soft tissue swelling. Luschka joint and facet joint hypertrophy is noted. The visualized portions of the lung apices are clear. The visualized portions of the skull base are intact. IMPRESSION: Multilevel degenerative changes without evidence of acute fracture or subluxation. FOLLOW-UP: Follow-up as clinically indicated. Electronically authenticated by: MARLENI SAID Date: 2022-06-18 02:07 Normal [facility] CT HEAD WO CONon 06-18-2022 CT HEAD WO CON EXAM: CT HEAD WO CON 06/18/2022 12:09 AM EDT OH001 CLINICAL STATEMENT: Syncope COMPARISON: 06/09/2022. TECHNIQUE: Multiple axial images were obtained of the brain without intravenous contrast. Dose reduction techniques were achieved by using automated exposure control and/or adjustment of mA and/or kV according to patient size and/or use of iterative reconstruction technique. 2-D reconstructed images are provided. FINDINGS: The ventricles and the cortical sulci have normal size contour and symmetry. There is no evidence for intracranial hemorrhage. There is no mass effect and or midline shift. No extra-axial collections. Limited evaluation of the orbits and the paranasal sinuses are normal. IMPRESSION: No acute intracranial abnormality. FOLLOW-UP: Follow-up as clinically indicated. Electronically authenticated by: MARLENI SAID Date: 2022-06-18 01:46 Normal [facility] ER URINE PROFILEon 2 Bilirubin Ql (U) Negative Normal NEGATIVE [facility] Comment on above: Performed By: #### V ITAD, PSASC #### [facility] [address] [place] [address] Dr. Caroline Bell Clarity (U) CLEAR Normal CLEAR [facility] Comment on above: Performed By: #### V ITAD, PSASC #### [facility] [address] [place] [address] Dr. Caroline Bell Color (U) LT. YELLOW Normal YELLOW [facility] Comment on above: Performed By: #### V ITAD, PSASC #### [facility] [address] [place] [address] Dr. Caroline Bell ERUAHD A micrscopic examination will be performed if indicated. Normal [facility] Comment on above: Performed By: #### V ITAD, PSASC #### [facility] [address] [place] [address] Dr. Caroline Bell Glucose Ql (U) Negative Normal NEGATIVE [facility] Comment on above: Performed By: #### V ITAD, PSASC #### [facility] [address] [place] [address] Dr. Caroline Bell Hemoglobin Ql (U) Negative Normal NEGATIVE [facility] Comment on above: Performed By: #### V ITAD, PSASC #### [facility] [address] [place] [address] Dr. Caroline Bell Ketones Ql (U) TRACE Abnormal NEGATIVE [facility] Comment on above: Performed By: #### V ITAD, PSASC #### [facility] [address] [place] [address] Dr. Caroline Bell LEUKOCYTES Negative Normal NEGATIVE [facility] Comment on above: Performed By: #### V ITAD, PSASC #### [facility] [address] [place] [address] Dr. Caroline Bell Nitrite Ql (U) Negative Normal NEGATIVE [facility] Comment on above: Performed By: #### V ITAD, PSASC #### [facility] [address] [place] [address] Dr. Caroline Bell pH (U) 6.0 [pH] Normal 5-9 [facility] Comment on above: Performed By: #### V ITAD, PSASC #### [facility] [address] [place] [address] Dr. Caroline Bell SPEC GRAVITY 1.020 Normal 1.005-<=1.025 [facility] Comment on above: Performed By: #### V ITAD, PSASC #### [facility] [address] [place] [address] Dr. Caroline Bell UA PROTEIN TRACE Normal NEGATIVE/ TRACE [facility] Comment on above: Performed By: #### V ITAD, PSASC #### [facility] [address] [place] [address] Dr. Caroline Bell UR MICRO IND NOT INDICATED Normal [facility] Comment on above: Performed By: #### V ITAD, PSASC #### [facility] [address] [place], [place] [address] Dr. Caroline Bell Urobilinogen Qn (U) 0.2 {Sophia'U}/dL Normal 0.2 - 1. 0 [facility] Comment on above: Performed By: #### V ITJAVI, PSASC #### [facility] [address] [place] [address] Dr. Caroline Bell LACTATE/LACTIC ACIDon 2021 Lactate [Moles/Vol] 2.9 mmol/L Critically high 0.4-1.9 [facility] Comment on above: Performed By: #### I NSULIN #### [facility] [address] [place] [address] Dr. Caroline Bell Lactate [Moles/Vol] 1.9 mmol/L Normal 0.4-1.9 [facility] Comment on above: Performed By: #### P OCGLUC #### [facility] [address] [place] [address] Dr. Caroline Bell POINT OF CARE GLUCOSEon Glucose [Mass/Vol] 411 mg/dL Critically high 74-106 [facility] Comment on above: Performed By: #### P OCGLUC #### [facility] [address] [place] [address] Dr. Caroline Bell Glucose [Mass/Vol] 51 mg/dL Critically low 74-106 [facility] Comment on above: Performed By: #### P OCGLUC #### [facility] [address] [place] [address] Dr. Caroline Bell PROF 14(COMP METB)on 022 Albumin [Mass/Vol] 3.7 g/dL Normal 3.4-5.0 [facility] Comment on above: Performed By: #### V ITJAVI PSASC #### [facility] [address] [place] [address] Dr. Caroline Bell Albumin/Globulin [Mass ratio] 0.9 {ratio} Normal [facility] Comment on above: Performed By: #### V ITAD, PSASC #### [facility] [address] [place] [address] Dr. Caroline Bell ALP [Catalytic activity/Vol] 96 U/L Normal 46-116 [facility] Comment on above: Performed By: #### V ITJAVI, PSASC #### [facility] [address] [address] [address] Caroline Bell ALT [Catalytic activity/Vol] 16 U/L Normal 16-63 [facility] Comment on above: Performed By: #### V ITJAVI, PSASC #### [facility] [address] [address] [address] Caroline Bell Anion gap [Moles/Vol] 14.3 mmol/L Normal [facility] Comment on above: Performed By: #### V ITJAVI, PSASC #### [facility] [address] [place] [address] Dr. Caroline Bell AST [Catalytic activity/Vol] 15 U/L Normal 15-37 [facility] Comment on above: Performed By: #### V DIDI, PSASC #### [facility] [address] [place] [address] Dr. Caroline Bell Bilirubin [Mass/Vol] 0.3 mg/dL Normal 0.2-1.0 [facility] Comment on above: Performed By: #### V ITJAVI, PSASC #### [facility] [address] [place] [address] Dr. Caroline Bell Calcium [Mass/Vol] 8.9 mg/dL Normal 8.5-10.1 [facility] Comment on above: Performed By: #### V ITJAVI, PSASC #### [facility] [address] [place] [address] Dr. Caroline Bell Chloride [Moles/Vol] 109 mmol/L Critically high 98-107 [facility] Comment on above: Performed By: #### V ITJAVI, PSASC #### [facility] [address] [place] [address] Dr. Caroline Bell CO2 [Moles/Vol] 22.6 mmol/L Normal 21.0-32.0 [facility] Comment on above: Performed By: #### V ITAD, PSASC #### [facility] [address] [address] [address] Caroline Bell Creatinine [Mass/Vol] 1.89 mg/dL Critically high 0.70-1.30 [facility] Comment on above: Performed By: #### V ITAD, PSASC #### [facility] [address] [address] [address] Caroline Bell EGFR-AF EMIRATI 43 mL/min/1.73m2 Critically low >=60 [facility] Comment on above: Performed By: #### V ITAD, PSASC #### [facility] [address] [address] [address] Caroline Bell EGFR-NON AF EMIRATI 35 mL/min/1.73m2 Critically low >=60 [facility] Comment on above: Performed By: #### V ITAD, PSASC #### [facility] [address] [place] [address] Dr. Caroline Bell Globulin (S) [Mass/Vol] 4.0 g/dL Normal [facility] Comment on above: Performed By: #### V ITAD, PSASC #### [facility] [address] [address] [address] Caroline Bell Glucose [Mass/Vol] 48 mg/dL Critically low 74-106 [facility] Comment on above: Performed By: #### V ITAD, PSASC #### [facility] [address] [place] [address] Dr. Caroline Bell Potassium [Moles/Vol] 4.9 mmol/L Normal 3.5-5.1 [facility] Comment on above: Performed By: #### V ITAD, PSASC #### [facility] [address] [place] [address] Dr. Caroline Bell Protein [Mass/Vol] 7.7 g/dL Normal 6.4-8.2 [facility] Comment on above: Performed By: #### V ITAD, PSASC #### [facility] [address] [place] [address] Dr. Caroline Bell Sodium [Moles/Vol] 141 mmol/L Normal 136-145 [facility] Comment on above: Performed By: #### V ITAD, PSASC #### [facility] [address] [address] [address] Caroline Bell Urea nitrogen [Mass/Vol] 32.0 mg/dL Critically high 7.0-18.0 [facility] Comment on above: Performed By: #### V ITAD, PSASC #### [facility] [address] [address] [address] Caroline Bell Urea nitrogen/Creatinine [Mass ratio] 16.9 mg/mg Normal [facility] Comment on above: Performed By: #### V ITAD, PSASC #### [facility] [address] [address] [address] Caroline Bell TROPONIN, HIGH SENSITIVITYon 06-18-2022 HSTROP 10.8 pg/mL Normal 4.0-76.1 [facility] Comment on above: Result Comment: CUT- OFF POINTS HAVE BEEN ESTABLISHED BASED ON THE FOURTH UNIVERSAL DEFINITIONS OF MYOCARDIAL INFARCTION. THE UPPER REFERENCE LIMIT (URL) OF TROPONIN, DEFINED THE 99TH PERCENTILE OF cTnI DISTRIBUTION IN A REFERENCE POPULATION, HAS BEEN CONFIRMED THE DECISION THRESHOLD FOR [place] DIAGNOSIS. Performed By: #### V ITAD, PSASC #### [facility] [address] [address] [address] Caroline Bell XR CHEST 1 Von 06-18-2022 XR CHEST 1 V EXAM: XR CHEST 1 V HISTORY: Syncope COMPARISON: 12/27/2020 TECHNIQUE: Chest single view. FINDINGS: Lines/tubes/devices: EKG leads overlie the chest. No indwelling lines are seen. Cardiomediastinum: Cardiac silhouette appears normal in size. Unremarkable mediastinal silhouette. Vasculature: No increased pulmonary vasculature. Lungs/pleura: No consolidation, sizeable effusion, or visible pneumothorax. Calcified granuloma redemonstrated in the right midlung zone. Bones/soft tissues: Bony thorax appears grossly intact as seen. IMPRESSION: No acute cardiopulmonary findings. Electronically authenticated by: NICK CHAIREZ Date: 2022-06-18 01:49 Normal [facility] BNPon 06-11-2022 Natriuretic peptide B (Bld) [Mass/Vol] 5101.0 pg/mL Critically high <=900.0 [facility] Comment on above: Performed By: #### C MREP #### [facility] [address] [place] [address] Dr. Caroline Bell CBC AUTO DIFFon 06-11-2022 BASO # 0.0 103/ul Normal 0.0-0.1 [facility] Comment on above: Performed By: #### P OCGLUC #### [facility] [address] [place] [address] Dr. Caroline Bell Basophils/100 WBC (Bld) 0.4 % Normal 0.2-2.0 [facility] Comment on above: Performed By: #### P OCGLUC #### [facility] [address] [place] [address] Dr. Caroline Bell EO # 0.6 103/ul Normal 0.0-0.7 [facility] Comment on above: Performed By: #### P OCGLUC #### [facility] [address] [place] [address] Dr. Caroline Bell Eosinophils/100 WBC (Bld) 6.1 % Normal 0.9-7.0 [facility] Comment on above: Performed By: #### P OCGLUC #### [facility] [address] [place] [address] Dr. Caroline Bell Erythrocyte distribution width (RBC) [Ratio] 14.4 % Normal 11.0-15.0 [facility] Comment on above: Performed By: #### P OCGLUC #### [facility] [address] [place] [address] Dr. Caroline Bell Hematocrit (Bld) [Volume fraction] 27.5 % Critically low 42.0-54.0 [facility] Comment on above: Performed By: #### P OCGLUC #### [facility] [address] [place] [address] Dr. Caroline Bell Hemoglobin (Bld) [Mass/Vol] 8.7 g/dL Critically low 14.0-18.0 [facility] Comment on above: Performed By: #### P OCGLUC #### [facility] [address] [place] [address] Dr. Caroline Bell IG # 0.01 10e3/ul Normal 0.00-0.03 [facility] Comment on above: Performed By: #### P OCGLUC #### [facility] [address] [place] [address] Dr. Caroline Bell IG % 0.1 % Normal 0.0-0.5 [facility] Comment on above: Performed By: #### P OCGLUC #### [facility] [address] [place] [address] Dr. Caroline Bell LYMPH # 2.0 103/ul Normal 1.2-3.8 [facility] Comment on above: Performed By: #### P OCGLUC #### [facility] [address] [place] [address] Dr. Caroline Bell Lymphocytes/100 WBC (Bld) 20.9 % Normal 20.5-60.0 [facility] Comment on above: Performed By: #### P OCGLUC #### [facility] [address] [place] [address] Dr. Caroline Bell MANUAL DIFF REQ NO Normal [facility] Comment on above: Performed By: #### P OCGLUC #### [facility] [address] [place] [address] Dr. Caroline Blel MCH (RBC) [Entitic mass] 29.6 pg Normal 25.9-34.0 [facility] Comment on above: Performed By: #### P OCGLUC #### [facility] [address] [place] [address] Dr. Caroline Bell MCHC (RBC) [Mass/Vol] 31.6 g/dL Normal 29.9-35.2 [facility] Comment on above: Performed By: #### P OCGLUC #### [facility] [address] [place] [address] Dr. Caroline Bell MCV (RBC) [Entitic vol] 93.5 fL Normal 80.0-94.0 [facility] Comment on above: Performed By: #### P OCGLUC #### [facility] [address] [place] [address] Dr. Caroline Bell MONO # 0.7 103/ul Normal 0.3-0.8 [facility] Comment on above: Performed By: #### P OCGLUC #### [facility] [address] [place] [address] Dr. Caroline Bell Monocytes/100 WBC (Bld) 7.7 % Normal 1.7-12.0 [facility] Comment on above: Performed By: #### P OCGLUC #### [facility] [address] [place] [address] Dr. Caroline Bell NEUT # 6.2 103/ul Normal 1.4-6.5 [facility] Comment on above: Performed By: #### P OCGLUC #### [facility] [address] [place] [address] Dr. Caroline Bell Neutrophils/100 WBC (Bld) 64.8 % Normal 43.0-75.0 [facility] Comment on above: Performed By: #### P OCGLUC #### [facility] [address] [place] [address] Dr. Caroline Bell Platelet mean volume (Bld) [Entitic vol] 10.1 fL Normal 9.5-13.5 [facility] Comment on above: Performed By: #### P OCGLUC #### [facility] [address] [place] [address] Dr. Caroline Bell PLT 212 103/ul Normal 150-450 [facility] Comment on above: Performed By: #### P OCGLUC #### [facility] [address] [place] [address] Dr. Caroline Bell RBC 2.94 106/ul Critically low 4.70-6.10 [facility] Comment on above: Performed By: #### P OCGLUC #### [facility] [address] [place] [address] Dr. Caroline Bell WBC 9.6 103/ul Normal 4.0-11.0 [facility] Comment on above: Performed By: #### P OCGLUC #### [facility] [address] [place] [address] Dr. Caroline Bell ECHOCARDIO M/2D COMPLETEon 1 ECHOCARDIO M/2D COMPLETE Patient: KIM GARRISON Exam Date: 06/11/2022 : 1950 Gender:M Ordering : [facility] Admission #: [id number] Family : IKER HARRISON . Order #: [id number] CLICK HERE TO VIEW EXAM ECHOCARDIOGRAM REPORT PROCEDURE: CARDIO PULMONARY ECHOCARDIO M/2D COMP INDICATIONS: Elevated BNP, syncope, hypertension COMPARISON: None. DESCRIPTION: COMPLETE ECHOCARDIOGRAM Real-time transthoracic echocardiography with 2D, M-mode, spectral and color flow Doppler performed. QUALITY: Technical quality was good. 68 199# BP 119/72 LEFT VENTRICLE: Normal chamber size. Mild concentric left ventricular hypertrophy. Systolic function is normal. LV EF: Normal left ventricular ejection fraction, (>55%). DIASTOLIC: Diastolic function is indeterminate. ATRIAL SEPTUM: LEFT ATRIUM: Severe dilatation. RIGHT ATRIUM: Moderate dilatation. RIGHT VENTRICLE: Normal chamber size. Normal right ventricular systolic function. TRICUSPID VALVE: Normal mobility and thickness. No stenosis with mild regurgitation. Doppler studies reveal moderately (45-60) elevated right sided pressures. RVSP 54 mmHg MITRAL VALVE: Normal mobility and thickness. No evidence of mitral valve stenosis. There is no mitral annular calcification. Trivial mitral regurgitation. AORTIC VALVE: Normal trileaflet appearance. No visible sclerosis. Normal leaflet mobility. No evidence of aortic valve stenosis. No aortic regurgitation. AORTIC ROOT: Normal diameter and appearance. PULMONIC VALVE: Normal thickness and mobility. No stenosis. Trivial regurgitation. PERICARDIUM: No evidence of pericardial effusion. IVC: Not well visualized. PLEURA: CONCLUSION: 1. Normal ventricular systolic function. LVEF is 55 to 60%. 2. Severe left atrial and moderate right atrial dilatation. 3. Mild tricuspid regurgitation. 4. Moderately elevated right-sided pressures. 5. No pericardial effusion. Adult Echocardiography Procedure Report Left Ventricle LVEDD (3.7 - 5.6 cm): 4.89 cm LVESD (2.2 - 4.0 cm): 3.13 cm LVIVS thickness (0.6 - 1.2 cm): 1.10 cm LVPW thickness (0.5 - 1.0 cm): 1.06 cm e': 0.16 m/s E - e': 5.51 LVOT Max Gradient: 2.90 mm[Hg] Peak Velocity (LVOT): 0.85 m/s Mean Velocity (LVOT): 0.58 m/s LVOT Diameter 2.57 cm Left Ventricular Ejection Fraction: 55-60% Left Atrium LA Volume Index (2D A2C): 132.67 ml, 132.67 ml Left Atrium Systolic Dimension: 5.24 cm Mitral Valve MV E to A Ratio: 2.69 Mitral Valve A-Wave Peak Velocity: 0.34 m/s Mitral Valve E-Wave Peak Velocity: 0.90 m/s Right Ventricle Aorta AO Root Diam: 3.76 cm Aortic Valve AoV Area (Peak Tawanda): 3.25 cm2, 3.25 cm2 AoV Area (VTI): 3.53 cm2, 3.53 cm2 Peak Velocity(Antegrade Flow): 1.36 m/s Peak Gradient(Antegrade Flow): 7.38 mm[Hg] Mean Velocity(Antegrade Flow): 0.94 m/s Mean Gradient(Antegrade Flow): 3.93 mm[Hg] Velocity Time Integral: 28.30 cm Tricuspid Valve Peak Velocity (Regurgitant Flow): 3.56 m/s, 3.50 m/s Peak Velocity: 0.52 m/s Pulmonic Valve Peak Velocity: 1.08 m/s, 0.96 m/s Peak Gradient: 4.64 mm[Hg], 3.67 mm[Hg] Right Atrium Right Atrium Systolic Pressure: 41.86 ml, 41.86 ml Dictated by: Chris Tapia M.D. on 06/19/2022 at 10:29 Approved by: Chris Tapia M.D. on 06/19/2022 at 10:32 Normal [facility] POINT OF CARE GLUCOSEon 10- Glucose [Mass/Vol] 136 mg/dL Critically high 74-106 [facility] Comment on above: Performed By: #### C MREP #### [facility] [address] [address] [address] Caroline Bell Glucose [Mass/Vol] 98 mg/dL Normal 74-106 [facility] Comment on above: Performed By: #### P OCGLUC #### [facility] [address] [address] [address] Caroline Bell PROF CHEM 8 (BAS METB)on Anion gap [Moles/Vol] 13.9 mmol/L Normal [facility] Comment on above: Performed By: #### C MREP #### [facility] [address] [place] [address] Dr. Caroline Bell Calcium [Mass/Vol] 7.9 mg/dL Critically low 8.5-10.1 [facility] Comment on above: Performed By: #### C MREP #### [facility] [address] [address] [address] Caroline Bell Chloride [Moles/Vol] 110 mmol/L Critically high 98-107 [facility] Comment on above: Performed By: #### C MREP #### [facility] [address] [place] [address] Dr. Caroline Bell CO2 [Moles/Vol] 22.2 mmol/L Normal 21.0-32.0 [facility] Comment on above: Performed By: #### C MREP #### [facility] [address] [place] [address] Dr. Caroline Bell Creatinine [Mass/Vol] 1.64 mg/dL Critically high 0.70-1.30 [facility] Comment on above: Performed By: #### C MREP #### [facility] [address] [place] [address] Dr. Caroline Bell EGFR-AF EMIRATI 50 mL/min/1.73m2 Critically low >=60 [facility] Comment on above: Performed By: #### C MREP #### [facility] [address] [place] [address] Dr. Caroline Bell EGFR-NON AF EMIRATI 42 mL/min/1.73m2 Critically low >=60 [facility] Comment on above: Performed By: #### C MREP #### [facility] [address] [place] [address] Dr. Caroline Bell Glucose [Mass/Vol] 94 mg/dL Normal 74-106 [facility] Comment on above: Performed By: #### C MREP #### [facility] [address] [place] [address] Dr. Caroline Bell Potassium [Moles/Vol] 5.1 mmol/L Normal 3.5-5.1 [facility] Comment on above: Performed By: #### C MREP #### [facility] [address] [address] [address] Caroline Bell Sodium [Moles/Vol] 141 mmol/L Normal 136-145 [facility] Comment on above: Performed By: #### C MREP #### [facility] [address] [address] [address] Caroline Bell Urea nitrogen [Mass/Vol] 30.0 mg/dL Critically high 7.0-18.0 [facility] Comment on above: Performed By: #### C MREP #### [facility] [address] [place] [address] Dr. Caroline Bell Urea nitrogen/Creatinine [Mass ratio] 18.3 mg/mg Normal [facility] Comment on above: Performed By: #### C MREP #### [facility] [address] [address] [address] Carolnie Bell PROTIMEon 06-11-2022 INR Coag (PPP) [Relative time] 2.40 {INR} Normal [facility] Comment on above: Performed By: #### V ITJAVI, PSASC #### [facility] [address] [place] [address] Dr. Caroline Bell INR GUIDELINES SEE BELOW Normal [facility] Comment on above: Result Comment: HANG RED INR: 2.0 - 3.0 CONDITIONS NOT LISTED BELOW 2.5 - 3.5 FOR PROSTHETIC HEART VALVE REPLACEMENT 2.5 - 3.5 RECURRENT THROMBOSIS Performed By: #### V ITJAVI, PSASC #### [facility] [address] [place] [address] Dr. Caroline Bell PT Coag (PPP) [Time] 24.5 s Critically high 9.0-11.6 [facility] Comment on above: Performed By: #### V ITJAVI, PSASC #### [facility] [address] [place] [address] Dr. Caroline Bell BNPon 06-10-2022 Natriuretic peptide B (Bld) [Mass/Vol] 7103.0 pg/mL Critically high <=900.0 [facility] Comment on above: Performed By: #### C MREP #### [facility] [address] [place] [address] Dr. Caroline Bell Natriuretic peptide B (Bld) [Mass/Vol] 6731.0 pg/mL Critically high <=900.0 [facility] Comment on above: Performed By: #### I NSULIN #### [facility] [address] [place] [address] Dr. Caroline Bell CARDIAC ANGEL 3-6on 2 CK [Catalytic activity/Vol] 47 U/L Normal 39-308 [facility] Comment on above: Performed By: #### C MREP #### [facility] [address] [place] [address] Dr. Caroline Bell CK.MB [Mass/Vol] 1.59 ng/mL Normal <=3.60 [facility] Comment on above: Performed By: #### C MREP #### [facility] [address] [place] [address] Dr. Caroline Bell HSTROP 10.5 pg/mL Normal 4.0-76.1 [facility] Comment on above: Result Comment: CUT- OFF POINTS HAVE BEEN ESTABLISHED BASED ON THE FOURTH UNIVERSAL DEFINITIONS OF MYOCARDIAL INFARCTION. THE UPPER REFERENCE LIMIT (URL) OF TROPONIN, DEFINED THE 99TH PERCENTILE OF cTnI DISTRIBUTION IN A REFERENCE POPULATION, HAS BEEN CONFIRMED THE DECISION THRESHOLD FOR [place] DIAGNOSIS. Performed By: #### C MREP #### [facility] [address] [place] [address] Dr. Caroline Bell CK [Catalytic activity/Vol] 58 U/L Normal 39-308 [facility] Comment on above: Performed By: #### C MREP #### [facility] [address] [place] [address] Dr. Caroline Bell CK.MB [Mass/Vol] 1.90 ng/mL Normal <=3.60 [facility] Comment on above: Performed By: #### C MREP #### [facility] [address] [place] [address] Dr. Caroline Bell HSTROP 10.8 pg/mL Normal 4.0-76.1 [facility] Comment on above: Result Comment: CUT- OFF POINTS HAVE BEEN ESTABLISHED BASED ON THE FOURTH UNIVERSAL DEFINITIONS OF MYOCARDIAL INFARCTION. THE UPPER REFERENCE LIMIT (URL) OF TROPONIN, DEFINED THE 99TH PERCENTILE OF cTnI DISTRIBUTION IN A REFERENCE POPULATION, HAS BEEN CONFIRMED THE DECISION THRESHOLD FOR [place] DIAGNOSIS. Performed By: #### C MREP #### [facility] [address] [address] [address] Caroline Bell CARDIAC ANGEL ADMITon 022 CK [Catalytic activity/Vol] 62 U/L Normal 39-308 [facility] Comment on above: Performed By: #### B PERINATAL BREASTFEEDING ASSISTANTTIFFANIE, BMP #### [facility] [address] [address] [address] Carolien Bell CK.MB [Mass/Vol] 1.70 ng/mL Normal <=3.60 [facility] Comment on above: Performed By: #### B PERINATAL BREASTFEEDING ASSISTANTJILLDM, BMP #### [facility] [address] [address] [address] Caroline Bell HSTROP 10.7 pg/mL Normal 4.0-76.1 [facility] Comment on above: Result Comment: CUT- OFF POINTS HAVE BEEN ESTABLISHED BASED ON THE FOURTH UNIVERSAL DEFINITIONS OF MYOCARDIAL INFARCTION. THE UPPER REFERENCE LIMIT (URL) OF TROPONIN, DEFINED THE 99TH PERCENTILE OF cTnI DISTRIBUTION IN A REFERENCE POPULATION, HAS BEEN CONFIRMED THE DECISION THRESHOLD FOR [place] DIAGNOSIS. Performed By: #### B PERINATAL BREASTFEEDING ASSISTANT, JILLDM, BMP #### [facility] [address] [address] [address] Caroline Bell ADITHYA 159 ng/mL Critically high 16-96 [facility] Comment on above: Performed By: #### B PERINATAL BREASTFEEDING ASSISTANT, JILLDM, BMP #### [facility] [address] [address] [address] Caroline Bell CBC AUTO DIFFon 06-10-2022 BASO # 0.0 103/ul Normal 0.0-0.1 [facility] Comment on above: Performed By: #### V ITAD, PSASC #### [facility] [address] [place] [address] Dr. Caroline Bell Basophils/100 WBC (Bld) 0.3 % Normal 0.2-2.0 [facility] Comment on above: Performed By: #### V ITAD, PSASC #### [facility] [address] [place] [address] Dr. Caroline Bell EO # 0.4 103/ul Normal 0.0-0.7 [facility] Comment on above: Performed By: #### V ITAD, PSASC #### [facility] [address] [place] [address] Dr. Caroline Bell Eosinophils/100 WBC (Bld) 3.0 % Normal 0.9-7.0 [facility] Comment on above: Performed By: #### V ITAD, PSASC #### [facility] [address] [place] [address] Dr. Caroline Bell Erythrocyte distribution width (RBC) [Ratio] 14.4 % Normal 11.0-15.0 [facility] Comment on above: Performed By: #### V ITAD, PSASC #### [facility] [address] [place] [address] Dr. Caroline Bell Hematocrit (Bld) [Volume fraction] 32.5 % Critically low 42.0-54.0 [facility] Comment on above: Performed By: #### V ITAD, PSASC #### [facility] [address] [place] [address] Dr. Caroline Bell Hemoglobin (Bld) [Mass/Vol] 10.4 g/dL Critically low 14.0-18.0 [facility] Comment on above: Performed By: #### V ITAD, PSASC #### [facility] [address] [place] [address] Dr. Caroline Bell IG # 0.04 10e3/ul Critically high 0.00-0.03 [facility] Comment on above: Performed By: #### V ITAD, PSASC #### [facility] [address] [place] [address] Dr. Caroline Bell IG % 0.3 % Normal 0.0-0.5 [facility] Comment on above: Performed By: #### V ITAD, PSASC #### [facility] [address] [place] [address] Dr. Caroline Bell LYMPH # 1.6 103/ul Normal 1.2-3.8 [facility] Comment on above: Performed By: #### V ITAD, PSASC #### [facility] [address] [place] [address] Dr. Caroline Bell Lymphocytes/100 WBC (Bld) 13.4 % Critically low 20.5-60.0 [facility] Comment on above: Performed By: #### V ITAD, PSASC #### [facility] [address] [place] [address] Dr. Caroline Bell MANUAL DIFF REQ NO Normal [facility] Comment on above: Performed By: #### V ITAD, PSASC #### [facility] [address] [place] [address] Dr. Caroline Bell MCH (RBC) [Entitic mass] 30.3 pg Normal 25.9-34.0 [facility] Comment on above: Performed By: #### V ITAD, PSASC #### [facility] [address] [place] [address] Dr. Caroline Bell MCHC (RBC) [Mass/Vol] 32.0 g/dL Normal 29.9-35.2 [facility] Comment on above: Performed By: #### V ITAD, PSASC #### [facility] [address] [place] [address] Dr. Caroline Bell MCV (RBC) [Entitic vol] 94.8 fL Critically high 80.0-94.0 [facility] Comment on above: Performed By: #### V ITAD, PSASC #### [facility] [address] [place] [address] Dr. Caroline Bell MONO # 0.8 103/ul Normal 0.3-0.8 [facility] Comment on above: Performed By: #### V ITAD, PSASC #### [facility] [address] [place] [address] Dr. Caroline Bell Monocytes/100 WBC (Bld) 6.6 % Normal 1.7-12.0 [facility] Comment on above: Performed By: #### V ITAD, PSASC #### [facility] [address] [place] [address] Dr. Caroline Bell NEUT # 9.0 103/ul Critically high 1.4-6.5 [facility] Comment on above: Performed By: #### V ITAD, PSASC #### [facility] [address] [place] [address] Dr. Caroline Bell Neutrophils/100 WBC (Bld) 76.4 % Critically high 43.0-75.0 [facility] Comment on above: Performed By: #### V ITAD, PSASC #### [facility] [address] [place] [address] Dr. Caroline Bell Platelet mean volume (Bld) [Entitic vol] 10.2 fL Normal 9.5-13.5 [facility] Comment on above: Performed By: #### V ITAD, PSASC #### [facility] [address] [place] [address] Dr. Caroline Bell PLT 240 103/ul Normal 150-450 [facility] Comment on above: Performed By: #### V ITAD, PSASC #### [facility] [address] [place] [address] Dr. Caroline Bell RBC 3.43 106/ul Critically low 4.70-6.10 [facility] Comment on above: Performed By: #### V ITAD, PSASC #### [facility] [address] [place] [address] Dr. Caroline Bell WBC 11.7 103/ul Critically high 4.0-11.0 [facility] Comment on above: Performed By: #### V ITAD, PSASC #### [facility] [address] [place] [address] Dr. Caroline Bell BASO # 0.1 103/ul Normal 0.0-0.1 [facility] Comment on above: Performed By: #### V ITAD, PSASC #### [facility] [address] [place] [address] Dr. Caroline Bell Basophils/100 WBC (Bld) 0.5 % Normal 0.2-2.0 [facility] Comment on above: Performed By: #### V ITAD, PSASC #### [facility] [address] [place] [address] Dr. Caroline Bell EO # 0.6 103/ul Normal 0.0-0.7 [facility] Comment on above: Performed By: #### V ITAD, PSASC #### [facility] [address] [place] [address] Dr. Caroline Bell Eosinophils/100 WBC (Bld) 4.2 % Normal 0.9-7.0 [facility] Comment on above: Performed By: #### V ITAD, PSASC #### [facility] [address] [place] [address] Dr. Caroline Bell Erythrocyte distribution width (RBC) [Ratio] 14.5 % Normal 11.0-15.0 [facility] Comment on above: Performed By: #### V ITAD, PSASC #### [facility] [address] [place] [address] Dr. Caroline Bell Hematocrit (Bld) [Volume fraction] 35.3 % Critically low 42.0-54.0 [facility] Comment on above: Performed By: #### V ITAD, PSASC #### [facility] [address] [place] [address] Dr. Caroline Bell Hemoglobin (Bld) [Mass/Vol] 11.2 g/dL Critically low 14.0-18.0 [facility] Comment on above: Performed By: #### V ITAD, PSASC #### [facility] [address] [place] [address] Dr. Caroline Bell IG # 0.05 10e3/ul Critically high 0.00-0.03 [facility] Comment on above: Performed By: #### V ITAD, PSASC #### [facility] [address] [place] [address] Dr. Caroline Bell IG % 0.4 % Normal 0.0-0.5 [facility] Comment on above: Performed By: #### V ITJAVI, PSASC #### [facility] [address] [place] [address] Dr. Caroline Bell LYMPH # 1.8 103/ul Normal 1.2-3.8 [facility] Comment on above: Performed By: #### V ITJAVI, PSASC #### [facility] [address] [place] [address] Dr. Caroline Bell Lymphocytes/100 WBC (Bld) 13.1 % Critically low 20.5-60.0 [facility] Comment on above: Performed By: #### V ITJAVI, PSASC #### [facility] [address] [place] [address] Dr. Caroline Bell MANUAL DIFF REQ NO Normal [facility] Comment on above: Performed By: #### V ITJAVI, PSASC #### [facility] [address] [place] [address] Dr. Caroline Bell MCH (RBC) [Entitic mass] 30.3 pg Normal 25.9-34.0 [facility] Comment on above: Performed By: #### V ITJAVI, PSASC #### [facility] [address] [place] [address] Dr. Caroline Bell MCHC (RBC) [Mass/Vol] 31.7 g/dL Normal 29.9-35.2 [facility] Comment on above: Performed By: #### V ITAD, PSASC #### [facility] [address] [place] [address] Dr. Caroline Bell MCV (RBC) [Entitic vol] 95.4 fL Critically high 80.0-94.0 [facility] Comment on above: Performed By: #### V ITAD, PSASC #### [facility] [address] [place] [address] Dr. Caroline Bell MONO # 0.8 103/ul Normal 0.3-0.8 [facility] Comment on above: Performed By: #### V ITAD, PSASC #### [facility] [address] [address] [address] Caroline Bell Monocytes/100 WBC (Bld) 5.6 % Normal 1.7-12.0 [facility] Comment on above: Performed By: #### V ITAD, PSASC #### [facility] [address] [place] [address] Dr. Caroline Bell NEUT # 10.6 103/ul Critically high 1.4-6.5 [facility] Comment on above: Performed By: #### V ITAD, PSASC #### [facility] [address] [place] [address] Dr. Caroline Bell Neutrophils/100 WBC (Bld) 76.2 % Critically high 43.0-75.0 [facility] Comment on above: Performed By: #### V ITAD, PSASC #### [facility] [address] [place] [address] Dr. Caroline Bell Platelet mean volume (Bld) [Entitic vol] 10.0 fL Normal 9.5-13.5 [facility] Comment on above: Performed By: #### V ITAD, PSASC #### [facility] [address] [place] [address] Dr. Caroline Bell PLT 252 103/ul Normal 150-450 [facility] Comment on above: Performed By: #### V ITAD, PSASC #### [facility] [address] [place] [address] Dr. Caroline Bell RBC 3.70 106/ul Critically low 4.70-6.10 [facility] Comment on above: Performed By: #### V ITAD, PSASC #### [facility] [address] [place] [address] Dr. Caroline Bell WBC 13.9 103/ul Critically high 4.0-11.0 [facility] Comment on above: Performed By: #### V ITAD, PSASC #### [facility] [address] [place] [address] ABD/PELVIS WO CONon 06-10 CT ABD/PELVIS WO CON EXAMINATION: CT ABD/PELVIS WO CON, 06/09/2022 11:35 PM EDT HISTORY: Pain unwitnessed fall. Low back pain. COMPARISON: CT abdomen pelvis 05/13/2021 TECHNIQUE: CT scan of the abdomen and pelvis was performed without IV contrast. CT dose reduction technique was used, including Automated Exposure Control. FINDINGS: Visualized lung bases demonstrate mild linear atelectasis/scar. Prominent left atrium and trace pericardial effusion. Status post cholecystectomy. Liver, pancreas, spleen, adrenal glands, kidneys, urinary bladder, and appendix are unremarkable. Mild prostamegaly 4.6 cm transverse diameter. Large amount of mixed liquid/solid stool throughout the large bowel from the cecum to the rectum. No evidence for small bowel obstruction, large ascites, or free air. Multiple lucent foci of the bowel pelvic osseous structures, similar to CT 05/13/2021. Minimal distal coccyx bone cortical irregularity and lucency (image 69 series 12). Please see CT lumbar spine for lumbar findings. IMPRESSION: Minimal distal coccyx bone cortical irregularity and lucency (image 69 series 12). Finding raises the suspicion for minimal distal coccyx bone cortical fracture. Correlate for point tenderness at this region. Large amount of mixed liquid/solid stool throughout the large bowel from the cecum to the rectum. No pericolonic inflammatory stranding or extraluminal free fluid/free air. Mild prostatomegaly. Electronically authenticated by: FERNANDO GONZÁLES Date: 2022-06-10 00:[address] [facility] [address] CHEST WO CONon 06-10-2022 CT CHEST WO CON EXAMINATION: CT CHES T WO CON HISTORY: Unwitnessed fall. Pain COMPARISON: CT chest abdomen and pelvis 05/13/2021 TECHNIQUE: CT examination of the chest without IV contrast. Coronal and sagittal reformations were performed. Dose reduction techniques were achieved by using automated exposure control and/or adjustment of mA and/or kV according to patient size and/or use of iterative reconstruction technique. FINDINGS: Central airway is patent. No lung consolidation, large pleural effusions, pneumothorax, or suspicious groundglass lung infiltrates. Mild bilateral lower lung bases linear atelectasis/scar. Right hilar calcified granulomatous lymph nodes. Dilated left atrium 5.5 cm AP diameter. No enlarged overall heart size. Minimal left coronary artery calcifications. No acute bony abnormality. IMPRESSION: No CT evidence for acute traumatic chest abnormality. Dilated left atrium 5.5 cm AP diameter. Minimal left coronary artery calcifications. Trace left pericardial effusion. Otherwise, no enlarged overall heart size. No suspicious lung consolidation, infiltrates, or pleural effusion. Electronically authenticated by: FERNANDO GONZÁLES Date: 2022-06-10 00:35 Normal [facility] CT CSPINE WO CONon 2 CT CSPINE WO CON EXAMINATION: CT CSPI NE WO CON HISTORY: The patient is a 72-year-old male who fell. COMPARISON: 05/02/2022. TECHNIQUE: CT Cervical spine without IV contrast. Coronal and sagittal reformations were performed. Dose reduction techniques were achieved by using automated exposure control and/or adjustment of mA and/or kV according to patient size and/or use of iterative reconstruction technique. FINDINGS: The axial images demonstrate no fractures or loss of vertebral body height throughout the cervical spine. The coronal and sagittal reformatted images demonstrate no fractures or loss of vertebral body height throughout the cervical spine. The temporomandibular joints are maintained. There is no malalignment or significant disc space narrowing. The soft tissue images demonstrate no evidence of sizable disc herniations or central canal stenosis throughout the cervical spine. There are no new findings. IMPRESSION: This is a relatively negative CT scan of the cervical spine with no fractures or loss of vertebral body height. Electronically authenticated by: MARI SO Date: 2022-06-10 00:15 Normal [facility] HEAD WO CONon 06-10-2022 CT HEAD WO CON EXAM: CT HEAD WO CON CLINICAL INDICATION: Pain COMPARISON: None TECHNIQUE: Axial CT images of the brain were obtained without contrast. Dose reduction techniques were achieved by using automated exposure control and/or adjustment of mA and/or kV according to patient size and/or use of iterative reconstruction technique. FINDINGS: Brain parenchyma: No mass effect or midline shift is seen. Hernandez-white differentiation is maintained. No findings suspicious for intracranial hemorrhage. No findings suggesting acute stroke. Periventricular hypoattenuation / patchy white matter hypodensities are statistically most often related to small vessel ischemic disease. Ventricles and extra-axial spaces: Ventricles are concordant with sulci. No findings suggesting hydrocephalus. Visualized paranasal sinuses: No findings suggesting acute sinusitis. Mastoid air cells: Clear. Stable calcifications noted along the left posterior articular soft tissue. Included portions of the orbits:Included portions of the orbits with no evidence of fracture or other acute pathology. Bones: No fracture is seen. Impression: 1. No evidence for an acute intracranial abnormality. 2. Age-appropriate cerebral volume loss with mild chronic small vessel ischemic disease. Electronically authenticated by: AMEYA TANNER Date: 2022-06-10 00:22 Normal [facility] CT LSPINE WO CONon 2 CT LSPINE WO CON EXAM: CT LSPINE WO C ON HISTORY: The patient is a 72-year-old male who fell. COMPARISON: CT scan of the abdomen and pelvis from 04/23/2021. TECHNIQUE: CT images were obtained through the lumbar spine without intravenous contrast and reformatted in 2 dimensions. Dose reduction techniques were achieved by using automated exposure control and/or adjustment of mA and/or kV according to patient size and/or use of iterative reconstruction technique. FINDINGS: The axial images demonstrate no fractures or cortical discontinuities throughout the lumbar spine. The alignment of the sacroiliac joints is maintained. There is bony ankylosis across the right sacroiliac joint. The coronal and sagittal reformatted images demonstrate no fractures or loss of vertebral body height throughout the lumbar spine. There is slight depression of the inferior endplate of the L5 vertebral body and this is unchanged since the prior CT scan of 05/13/2021. There is no malalignment throughout the lumbar spine. There is mild disc space narrowing throughout the lumbar spine. The soft tissue images demonstrate evidence of a sizable disc herniation at the L4-L5 level. This appears unchanged since the CT scan of 05/13/2021. If clinically necessary, the degree of central canal stenosis and neural foraminal narrowing could be better evaluated with an MRI of the lumbar spine. IMPRESSION: 1. No fractures or loss of vertebral body height throughout the lumbar spine. 2. Stable disc herniation at the L4-L5 level, and this could be better evaluated with MRI. Electronically authenticated by: MARI SO Date: 2022-06-10 00:20 Normal [facility] Covid-19 PCR (CVDTBH)on 05-19 SARS-CoV-2 (COVID-19) RNA DANILO+probe Ql (Unsp spec) Not detected Normal NOT DETECTED [facility] Comment on above: Result Comment: When diagnostic testing is negative, the possibility of a false negative should be considered in the context of a patient's recent exposures and the presence of clinical signs and symptoms consistent with SARS-CoV-2. This test is not yet approved or cleared by the [place] FDA. When there are no FDA-approved or cleared tests available, and other criteria are met, FDA can make tests available under an emergency access mechanism called an Emergency Use Authorization (EUA). The EUA for this test is supported by the Systems Test Analyst of Health and Human Service's declaration that circumstances exist to justify the emergency use of in vitro diagnostics for the detection and/or diagnosis of the virus that causes COVID-19. This EUA will remain in effect for the duration of the COVID-19 declaration justifying emergency of IVDs, unless it is terminated or revoked by the FDA (after which the test may no longer be used). Performed By: #### V ITAD, PSASC #### [facility] [address] [place] [address] Dr. Caroline Bell D-DIMERon 06-10-2022 D-DIMER 5.83 mg/L FEU Critically high <=0.59 [facility] Comment on above: Performed By: #### I NSULIN #### [facility] [address] [place] [address] Dr. Caroline Bell D-DIMER COMMENTS SEE BELOW Normal [facility] Comment on above: Result Comment: Incr eases in D-Dimer concentration observed with thromboembolic events can be variable due to localization, size, and age of the thrombus. Therefore, a thromboembolic event cannot be diagnosed with certainty on the basis of the reference range. D-Dimers may also be elevated for a variety of disorders including: advanced age, , coronary disease, cancer, liver disease, infection, inflammation, hematoma, DIC, trauma, post-surgery, diabetes, thrombolytic or anticoagulant therapy, stress, and generalized hospitalization. Performed By: #### I NSULIN #### [facility] [address] [place] [address] Dr. Caroline Bell DIGOXINon 06-10-2022 DIG 1.1 ng/mL Normal 0.9-2.0 [facility] Comment on above: Performed By: #### C MREP #### [facility] [address] [place] [address] Dr. Caroline Bell DIG 1.5 ng/mL Normal 0.9-2.0 [facility] Comment on above: Performed By: #### V ITAD, PSASC #### [facility] [address] [address] [address] Caroline RITTER URINE PROFILEon 2 Bilirubin Ql (U) Negative Normal NEGATIVE [facility] Comment on above: Performed By: #### P OCGLUC #### [facility] [address] [address] [address] Caroline Bell Clarity (U) CLEAR Normal CLEAR [facility] Comment on above: Performed By: #### P OCGLUC #### [facility] [address] [place] [address] Dr. Caroline Bell Color (U) LT. YELLOW Normal YELLOW [facility] Comment on above: Performed By: #### P OCGLUC #### [facility] [address] [place] [address] Dr. Caroline TAYLOR A micrscopic examination will be performed if indicated. Normal [facility] Comment on above: Performed By: #### P OCGLUC #### [facility] [address] [address] [address] Caroline Bell Glucose Ql (U) Negative Normal NEGATIVE [facility] Comment on above: Performed By: #### P OCGLUC #### [facility] [address] [place] [address] Dr. Caroline Bell Hemoglobin Ql (U) Negative Normal NEGATIVE [facility] Comment on above: Performed By: #### P OCGLUC #### [facility] [address] [place] [address] Dr. Caroline Bell Ketones Ql (U) Negative Normal NEGATIVE [facility] Comment on above: Performed By: #### P OCGLUC #### [facility] [address] [address] [address] Caroline Bell LEUKOCYTES Negative Normal NEGATIVE [facility] Comment on above: Performed By: #### P OCGLUC #### [facility] [address] [place] [address] Dr. Caroline Bell Nitrite Ql (U) Negative Normal NEGATIVE [facility] Comment on above: Performed By: #### P OCGLUC #### [facility] [address] [address] [address] Caroline Bell pH (U) 6.0 [pH] Normal 5-9 [facility] Comment on above: Performed By: #### P OCGLUC #### [facility] [address] [address] [address] Caroline Bell SPEC GRAVITY 1.025 Normal 1.005-<=1.025 [facility] Comment on above: Performed By: #### P OCGLUC #### [facility] [address] [address] [address] Caroline Bell UA PROTEIN Negative Normal NEGATIVE/ TRACE [facility] Comment on above: Performed By: #### P OCGLUC #### [facility] [address] [place] [address] Dr. Caroline Bell UR MICRO IND NOT INDICATED Normal [facility] Comment on above: Performed By: #### P OCGLUC #### [facility] [address] [address] [address] Caroline Bell Urobilinogen Qn (U) 0.2 {Sophia'U}/dL Normal 0.2 - 1. 0 [facility] Comment on above: Performed By: #### P OCGLUC #### [facility] [address] [address] [address] Caroline Bell POINT OF CARE GLUCOSEon 2 Glucose [Mass/Vol] 121 mg/dL Critically high 74-106 [facility] Comment on above: Performed By: #### P OCGLUC #### [facility] [address] [address] [address] Caroline Bell Glucose [Mass/Vol] 121 mg/dL Critically high [facility]106 [facility] Comment on above: Performed By: #### V ITAD, PSASC #### [facility] [address] [address] [address] Caroline Bell Glucose [Mass/Vol] 120 mg/dL Critically high [facility]106 [facility] Comment on above: Performed By: #### V ITAD, PSASC #### [facility] [address] [address] [address] Caroline Bell Glucose [Mass/Vol] 131 mg/dL Critically high [address] [place] [address] Comment on above: Performed By: #### V ITAD, PSASC #### [facility] [address] [address] [address] Caroline Bell Glucose [Mass/Vol] 496 mg/dL Critically high [address] [place] [address] Comment on above: Performed By: #### P OCGLUC #### [facility] [address] [address] [address] Caroline Bell Glucose [Mass/Vol] 316 mg/dL Critically high [address] [place] [address] Comment on above: Performed By: #### V ITAD, PSASC #### [facility] [address] [address] [address] Caroline Bell Glucose [Mass/Vol] 240 mg/dL Critically high [address] [place] [address] Comment on above: Performed By: #### P OCGLUC #### [facility] [address] [address] [address] Caroline Bell Glucose [Mass/Vol] 169 mg/dL Critically high [address] [place] [address] Comment on above: Performed By: #### C MREP #### [facility] [address] [address] [address] Caroline Bell Glucose [Mass/Vol] 117 mg/dL Critically high [address] [place] [address] Comment on above: Performed By: #### I NSULIN #### [facility] [address] [address] [address] Caroline Bell PROF 14(COMP METB)on 022 Albumin [Mass/Vol] 3.0 g/dL Critically low 3.4-5.0 [facility] Comment on above: Performed By: #### C MREP #### [facility] [address] [address] [address] Caroline Bell Albumin/Globulin [Mass ratio] 0.9 {ratio} Normal [facility] Comment on above: Performed By: #### C MREP #### [facility] [address] [address] [address] Caroline Bell ALP [Catalytic activity/Vol] 80 U/L Normal 46-116 [facility] Comment on above: Performed By: #### C MREP #### [facility] [address] [address] [address] Caroline Bell ALT [Catalytic activity/Vol] 13 U/L Critically low 16-63 [facility] Comment on above: Performed By: #### C MREP #### [facility] [address] [address] [address] Caroline Bell Anion gap [Moles/Vol] 8.0 mmol/L Normal [facility] Comment on above: Performed By: #### C MREP #### [facility] [address] [address] [address] Caroline Bell AST [Catalytic activity/Vol] 13 U/L Critically low 15-37 [facility] Comment on above: Performed By: #### C MREP #### [facility] [address] [address] [address] Caroline Bell Bilirubin [Mass/Vol] 0.3 mg/dL Normal 0.2-1.0 [facility] Comment on above: Performed By: #### C MREP #### [facility] [address] [address] [address] Caroline Bell Calcium [Mass/Vol] 8.4 mg/dL Critically low 8.5-10.1 [facility] Comment on above: Performed By: #### C MREP #### [facility] [address] [address] [address] Caroline Bell Chloride [Moles/Vol] 108 mmol/L Critically high 98-107 [facility] Comment on above: Performed By: #### C MREP #### [facility] [address] [address] [address] Caroline Bell CO2 [Moles/Vol] 28.1 mmol/L Normal 21.0-32.0 [facility] Comment on above: Performed By: #### C MREP #### [facility] [address] [address] [address] Caroline Bell Creatinine [Mass/Vol] 1.69 mg/dL Critically high 0.70-1.30 [facility] Comment on above: Performed By: #### C MREP #### [facility] [address] [address] [address] Caroline Bell EGFR-AF EMIRATI 49 mL/min/1.73m2 Critically low >=60 [facility] Comment on above: Performed By: #### C MREP #### [facility] [address] [address] [address] Caroline Bell EGFR-NON AF EMIRATI 40 mL/min/1.73m2 Critically low >=60 [facility] Comment on above: Performed By: #### C MREP #### [facility] [address] [address] [address] Caroline Bell Globulin (S) [Mass/Vol] 3.3 g/dL Normal [facility] Comment on above: Performed By: #### C MREP #### [facility] [address] [address] [address] Carolnie Bell Glucose [Mass/Vol] 220 mg/dL Critically high 74-106 [facility] Comment on above: Performed By: #### C MREP #### [facility] [address] [address] [address] Caroline Bell Potassium [Moles/Vol] 5.1 mmol/L Normal 3.5-5.1 [facility] Comment on above: Performed By: #### C MREP #### [facility] [address] [address] [address] Caroline Bell Protein [Mass/Vol] 6.3 g/dL Critically low 6.4-8.2 [facility] Comment on above: Performed By: #### C MREP #### [facility] [address] [address] [address] Caroline Bell Sodium [Moles/Vol] 139 mmol/L Normal 136-145 [facility] Comment on above: Performed By: #### C MREP #### [facility] [address] [address] [address] Caroline Bell Urea nitrogen [Mass/Vol] 32.0 mg/dL Critically high 7.0-18.0 [facility] Comment on above: Performed By: #### C MREP #### [facility] [address] [address] [address] Caroline Bell Urea nitrogen/Creatinine [Mass ratio] 18.9 mg/mg Normal [facility] Comment on above: Performed By: #### C MREP #### [facility] [address] [place] [address] Dr. Caroline Bell PROF CHEM 8 (BAS METB)on Anion gap [Moles/Vol] 14.2 mmol/L Normal [facility] Comment on above: Performed By: #### I NSULIN #### [facility] [address] [place] [address] Dr. Caroline Bell Calcium [Mass/Vol] 8.8 mg/dL Normal 8.5-10.1 [facility] Comment on above: Performed By: #### I NSULIN #### [facility] [address] [place] [address] Dr. Caroline Bell Chloride [Moles/Vol] 110 mmol/L Critically high 98-107 [facility] Comment on above: Performed By: #### I NSULIN #### [facility] [address] [place] [address] Dr. Caroline Bell CO2 [Moles/Vol] 21.7 mmol/L Normal 21.0-32.0 [facility] Comment on above: Performed By: #### I NSULIN #### [facility] [address] [place] [address] Dr. Caroline Bell Creatinine [Mass/Vol] 2.07 mg/dL Critically high 0.70-1.30 [facility] Comment on above: Performed By: #### I NSULIN #### [facility] [address] [place] [address] Dr. Caroline Bell EGFR-AF EMIRATI 39 mL/min/1.73m2 Critically low >=60 [facility] Comment on above: Performed By: #### I NSULIN #### [facility] [address] [address] [address] Caroline Bell EGFR-NON AF EMIRATI 32 mL/min/1.73m2 Critically low >=60 [facility] Comment on above: Performed By: #### I NSULIN #### [facility] [address] [address] [address] Caroline Bell Glucose [Mass/Vol] 126 mg/dL Critically high 74-106 [facility] Comment on above: Performed By: #### I NSULIN #### [facility] [address] [place] [address] Dr. Caroline Bell Potassium [Moles/Vol] 4.9 mmol/L Normal 3.5-5.1 [facility] Comment on above: Performed By: #### I NSULIN #### [facility] [address] [place] [address] Dr. Caroline Bell Sodium [Moles/Vol] 141 mmol/L Normal 136-145 [facility] Comment on above: Performed By: #### I NSULIN #### [facility] [address] [place] [address] Dr. Caroline Bell Urea nitrogen [Mass/Vol] 34.0 mg/dL Critically high 7.0-18.0 [facility] Comment on above: Performed By: #### I NSULIN #### [facility] [address] [place] [address] Dr. Caroline Bell Urea nitrogen/Creatinine [Mass ratio] 16.4 mg/mg Normal [facility] Comment on above: Performed By: #### I NSULIN #### [facility] [address] [address] [address] Caroline Bell PROTIMEon 06-10-2022 INR Coag (PPP) [Relative time] 1.43 {INR} Normal [facility] Comment on above: Performed By: #### I NSULIN #### [facility] [address] [place] [address] Dr. Caroline Bell INR GUIDELINES SEE BELOW Normal [facility] Comment on above: Result Comment: HANG RED INR: 2.0 - 3.0 CONDITIONS NOT LISTED BELOW 2.5 - 3.5 FOR PROSTHETIC HEART VALVE REPLACEMENT 2.5 - 3.5 RECURRENT THROMBOSIS Performed By: #### I NSULIN #### [facility] [address] [place] [address] Dr. Caroline Bell PT Coag (PPP) [Time] 15.1 s Critically high 9.0-11.6 [facility] Comment on above: Performed By: #### I NSULIN #### [facility] [address] [place] [address] Dr. Caroline Bell PTTon 06-10-2022 aPTT Coag (Bld) [Time] 28.2 s Normal 22.3-36.2 [facility] Comment on above: Performed By: #### I NSULIN #### [facility] [address] [place] [address] Dr. Caroline Bell T4on 06-10-2022 T4 [Mass/Vol] 4.40 ug/dL Critically low 4.50-12.10 [facility] Comment on above: Performed By: #### V ITAD, PSASC #### [facility] [address] [place] [address] Dr. Caroline Bell TSHon 06-10-2022 TSH 0.911 uIU/mL Normal 0.358-3.740 [facility] Comment on above: Performed By: #### P OCGLUC #### [facility] [address] [place] [address] HEAD WO CONon 05-07-2022 CT HEAD WO CON EXAMINATION: CT HEAD WO CON HISTORY: Concussion with less than 1 hour loss of consciousness ; fell off porch COMPARISON: CT head 05/02/2022 TECHNIQUE: Axial CT images were obtained without IV contrast. Dose reduction techniques were achieved by using automated exposure control and/or adjustment of mA and/or kV according to patient size and/or use of iterative reconstruction technique. FINDINGS: BRAIN: No edema, hemorrhage, mass, acute infarction, or inappropriate atrophy. CSF SPACES: No hydrocephalus, subarachnoid hemorrhage, or mass. Appropriate for age. SKULL: No fracture, mass, or other significant visible lesion. SINUSES: No significant mucosal thickening or fluid on the limited views. ORBITS: No appreciable abnormality on the limited views. OTHER: Negative IMPRESSION: 1. No acute abnormality. 2. Age consistent mild chronic changes. Electronically authenticated by: TONY IYER Date: 2022-05-07 07:15 Normal [facility] CBC AUTO DIFFon 05-02-2022 BASO # 0.1 103/ul Normal 0.0-0.1 [facility] Comment on above: Performed By: #### V ITAD, PSASC #### [facility] [address] [place] [address] Dr. Caroline Bell Basophils/100 WBC (Bld) 0.5 % Normal 0.2-2.0 [facility] Comment on above: Performed By: #### V ITAD, PSASC #### [facility] [address] [place] [address] Dr. Caroline Bell EO # 0.6 103/ul Normal 0.0-0.7 [facility] Comment on above: Performed By: #### V ITAD, PSASC #### [facility] [address] [address] [address] Caroline Bell Eosinophils/100 WBC (Bld) 4.6 % Normal 0.9-7.0 [facility] Comment on above: Performed By: #### V ITAD, PSASC #### [facility] [address] [place] [address] Dr. Caroline Bell Erythrocyte distribution width (RBC) [Ratio] 14.4 % Normal 11.0-15.0 [facility] Comment on above: Performed By: #### V ITAD, PSASC #### [facility] [address] [place] [address] Dr. Caroline Bell Hematocrit (Bld) [Volume fraction] 34.7 % Critically low 42.0-54.0 [facility] Comment on above: Performed By: #### V ITAD, PSASC #### [facility] [address] [place] [address] Dr. Caroline Bell Hemoglobin (Bld) [Mass/Vol] 11.1 g/dL Critically low 14.0-18.0 [facility] Comment on above: Performed By: #### V ITJAVI, PSASC #### [facility] [address] [place] [address] Dr. Caroline Bell IG # 0.05 10e3/ul Critically high 0.00-0.03 [facility] Comment on above: Performed By: #### V ITJAVI, PSASC #### [facility] [address] [address] [address] Caroline Bell IG % 0.4 % Normal 0.0-0.5 [facility] Comment on above: Performed By: #### V ITJAVI, PSASC #### [facility] [address] [place] [address] Dr. Caroline Bell LYMPH # 1.8 103/ul Normal 1.2-3.8 [facility] Comment on above: Performed By: #### V ITJAVI, PSASC #### [facility] [address] [place] [address] Dr. Caroline Bell Lymphocytes/100 WBC (Bld) 13.4 % Critically low 20.5-60.0 [facility] Comment on above: Performed By: #### V ITJAVI, PSASC #### [facility] [address] [place] [address] Dr. Caroline Bell MANUAL DIFF REQ NO Normal [facility] Comment on above: Performed By: #### V ITJAVI, PSASC #### [facility] [address] [place] [address] Dr. Caroline Bell MCH (RBC) [Entitic mass] 29.7 pg Normal 25.9-34.0 [facility] Comment on above: Performed By: #### V ITAD, PSASC #### [facility] [address] [place] [address] Dr. Caroline Bell MCHC (RBC) [Mass/Vol] 32.0 g/dL Normal 29.9-35.2 [facility] Comment on above: Performed By: #### V ITAD, PSASC #### [facility] [address] [place] [address] Dr. Caroline Bell MCV (RBC) [Entitic vol] 92.8 fL Normal 80.0-94.0 [facility] Comment on above: Performed By: #### V ITAD, PSASC #### [facility] [address] [place] [address] Dr. Caroline Bell MONO # 0.9 103/ul Critically high 0.3-0.8 [facility] Comment on above: Performed By: #### V ITAD, PSASC #### [facility] [address] [place] [address] Dr. Caroline Bell Monocytes/100 WBC (Bld) 6.8 % Normal 1.7-12.0 [facility] Comment on above: Performed By: #### V ITAD, PSASC #### [facility] [address] [place] [address] Dr. Caroline Bell NEUT # 9.7 103/ul Critically high 1.4-6.5 [facility] Comment on above: Performed By: #### V ITAD, PSASC #### [facility] [address] [place] [address] Dr. Caroline Bell Neutrophils/100 WBC (Bld) 74.3 % Normal 43.0-75.0 [facility] Comment on above: Performed By: #### V ITAD, PSASC #### [facility] [address] [place] [address] Dr. Caroline Bell Platelet mean volume (Bld) [Entitic vol] 10.0 fL Normal 9.5-13.5 [facility] Comment on above: Performed By: #### V ITAD, PSASC #### [facility] [address] [place] [address] Dr. Caroline Bell PLT 296 103/ul Normal 150-450 [facility] Comment on above: Performed By: #### V ITAD, PSASC #### [facility] [address] [place] [address] Dr. Caroline Bell RBC 3.74 106/ul Critically low 4.70-6.10 [facility] Comment on above: Performed By: #### V ITJAVI, PSASC #### [facility] [address] [place], [place] [address] Dr. Caroline Bell WBC 13.1 103/ul Critically high 4.0-11.0 [facility] Comment on above: Performed By: #### V ITJAVI, PSASC #### [facility] [address] [place], [place] [address] CSPINE WO CONon CT CSPINE WO CON EXAMINATION: CT CSPI NE WO CON HISTORY: COMPARISON: No relevant comparison available. TECHNIQUE: Axial, Coronal, and Sagittal images were created without IV contrast. Dose reduction techniques were achieved by using automated exposure control and/or adjustment of mA and/or kV according to patient size and/or use of iterative reconstruction technique. FINDINGS: VERTEBRAL BODIES: No fracture, pars defect, or osseous lesion. FACET JOINTS: No disruption or abnormal widening. CERVICAL DISCS: Early degenerative disc disease is present without focal protrusion or neural impingement. CENTRAL CANAL: No spinal stenosis or evidence of hemorrhage. PARASPINAL AREA: No visible mass. IMPRESSION: 1. No acute abnormality. 2. Minimal degenerative changes. Electronically authenticated by: TONY IYER Date: 2022-05-02 15:14 Normal [facility] [address] HEAD WO CONon 05-02-2022 CT HEAD WO CON EXAMINATION: CT HEAD WO CON HISTORY: Unspecified fall ; struck forehead COMPARISON: CT head 05/13/2021 TECHNIQUE: Axial CT images were obtained without IV contrast. Dose reduction techniques were achieved by using automated exposure control and/or adjustment of mA and/or kV according to patient size and/or use of iterative reconstruction technique. FINDINGS: BRAIN: No edema, hemorrhage, mass, acute infarction, or inappropriate atrophy. CSF SPACES: No hydrocephalus, subarachnoid hemorrhage, or mass. Appropriate for age. SKULL: No fracture, mass, or other significant visible lesion. SINUSES: No significant mucosal thickening or fluid on the limited views. ORBITS: No appreciable abnormality on the limited views. OTHER: Negative IMPRESSION: 1. No acute or suspicious findings. Age consistent mild chronic changes. 2. No fracture of the calvarium or scalp hematoma. Electronically authenticated by: TONY IYER Date: 2022-05-02 15:08 Normal [facility] PROTIMEon 05-02-2022 INR Coag (PPP) [Relative time] 3.49 {INR} Normal [facility] Comment on above: Performed By: #### P OCGLUC #### [facility] [address] [place] [address] Dr. Caroline Bell INR GUIDELINES SEE BELOW Normal [facility] Comment on above: Result Comment: HANG RED INR: 2.0 - 3.0 CONDITIONS NOT LISTED BELOW 2.5 - 3.5 FOR PROSTHETIC HEART VALVE REPLACEMENT 2.5 - 3.5 RECURRENT THROMBOSIS Performed By: #### P OCGLUC #### [facility] [address] [place] [address] Dr. Caroline Bell PT Coag (PPP) [Time] 34.7 s Critically high 9.0-11.6 [facility] Comment on above: Performed By: #### P OCGLUC #### [facility] [address] [place] [address] Dr. Caroline Bell PTTon 05-02-2022 aPTT Coag (Bld) [Time] 47.0 s Critically high 22.3-36.2 [facility] Comment on above: Performed By: #### P OCGLUC #### [facility] [address] [place] [address] Dr. Caroline Bell Covid-19 PCR ([facility])on 01-16 SARS-CoV-2 (COVID-19) RNA DANILO+probe Ql (Unsp spec) Not detected Normal NOT DETECTED [facility] Comment on above: Result Comment: This test is not yet approved or cleared by the [place] FDA. When there are no FDA-approved or cleared tests available, and other criteria are met, FDA can make tests available under an emergency access mechanism called an Emergency Use Authorization (EUA). The EUA for this test is supported by the [place] of Health and Human Service's (HHS's) declaration that circumstances exist to justify the emergency use of in vitro diagnostics for the detection and/or diagnosis of the virus that causes COVID-19. This EUA will remain in effect (meaning this test can be used) for the duration of the COVID-19 declaration justifying emergency of IVDs, unless it is terminated or revoked by FDA (after which the test may no longer be used). When diagnostic testing is negative, the possibility of a false negative should be considered in the context of a patient's recent exposures and the presence of clinical signs and symptoms consistent with SARS-CoV-2. Performed By: #### C MREP #### [facility] [address] [place] [id number] [address] Caroline Bell SYMPTOMATIC COVID-19 ANTIGEN on 01-28-2022 EUA Statement SEE BELOW Normal [facility] Comment on above: Result Comment: This test has not been FDA cleared or approved, but has been authorized by the FDA under an Emergency Use Authorization (EUA) for use by authorized laboratories certified under CLIA that meet the requirements to perform moderate or high complexity testing. This test has been authorized only for the detection of proteins from SARS-CoV-2, not for any other viruses or pathogens. The emergency use of this test is authorized for the duration of the declaration that circumstances exist justifying the authorization of emergency use of in vitro diagnostic tests for detection and/or diagnosis of Covid-19 under section 564(b)(1) of the Act, 21 U.S.C. 360bbb-3(b)(1), unless the declaration is terminated or authorization is revoked sooner. Performed By: #### I NSULIN #### [facility] [address] [place] [id number] Caroline Bell SARS-CoV-2 (COVID-19) RNA DANILO+probe Ql (Unsp spec) Negative Normal NEGATIVE [facility] Comment on above: Performed By: #### I NSULIN #### [facility] [address] [place] [id number] [address] Caroline Bell Office Visit (Cardiology)on 09-04-2021 Follow-up visit Diagnoses/Problems Assessed Chronic atrial fibrillation (427.31) (I48.20) Benign essential hypertension (401.1) (I10) High risk medication use (V58.69) (Z79.899) Class 1 obesity with body mass index (BMI) of 32.0 to 32.9 in adult (278.00,V85.32) (E66.9,Z68.32) Hyperlipidemia (272.4) (E78.5) Orders Class 1 obesity with body mass index (BMI) of 32.0 to 32.9 in adult Healthy Weight Tips; Status:Complete - Retrospective Authorization; Done: 04Sep2021 Patient Instructions By signing my name below, I, Ren Rice LPNibe, attest that this documentation has been prepared under the direction and in the presence of Dr. Nick Razo DO. All medical record entries made by the Scribe were at my direction and personally dictated by me. I have reviewed the chart and agree that the record accurately reflects my personal performance of the history, physical exam, discussion and plan. Please bring all medicines, vitamins, and herbal supplements with you when you come to the office. Prescriptions will not be filled unless you are compliant with your follow up appointments or have a follow up appointment scheduled as per instruction of your physician. Refills should be requested at the time of your visit. Follow up in 6 months continue current medications Chief Complaint KIM GARRISON is being seen for a 6 month follow-up of. History of Present Illness Mr. Garrison is a 71-year-old male seen back today for follow-up mostly on his atrial fibrillation. His atrial fibrillation is permanent. He has had occasional episodes of chest discomfort and had a fairly recent stress test that was negative. Does not have any specific cardiac complaints today. No symptoms related to his atrial fibrillation. Physical exam: Neck: No carotid bruits are heard Lungs: Clear Heart: Irregularly irregular without murmurs or extra sounds Extremities: Trace edema Recommendation is continuation of current medications. No changes were made. He seems to be reasonably stable from cardiac perspective. He is to return in 6 months for follow-up. Surgical History Problems History of Cholecystectomy History of Complete colonoscopy PROCEDURE DATE [id number] KA[facility]AL History of Rotator cuff repair History of Tooth extraction Current Meds Medication NameInstruction Digoxin 125 MCG Oral TabletTAKE 1 TABLET DAILY. Flomax 0.4 MG Oral CapsuleTAKE 1 CAPSULE Daily Lantus 100 UNIT/ML Subcutaneous SolutionUSE DIRECTED. Lisinopril 10 MG Oral TabletTake 1 tablet daily metFORMIN HCl - 1000 MG Oral TabletTAKE 1 TABLET EVERY 12 HOURS. Metoprolol Tartrate 50 MG Oral TabletTAKE 1 TABLET EVERY 12 HOURS DAILY. NovoLOG 100 UNIT/ML Subcutaneous SolutionINJECT SUBCUTANEOUSLY DIRECTED. Pantoprazole Sodium 40 MG Oral Tablet Delayed ReleaseTAKE 1 TABLET DAILY. Sertraline HCl - 100 MG Oral TabletTAKE 1 TABLET DAILY DIRECTED. Simvastatin 20 MG Oral TabletTAKE 1 TABLET DAILY. traZODone HCl - 50 MG Oral TabletTAKE 1 TABLET AT BEDTIME NEEDED. Vitamin D3 50 MCG (1999) Oral TabletTake 1 tablet daily Warfarin Sodium 2 MG Oral Tabletas directed by [facility] Allergies Medication Zithromax TABS Adverse Reaction; Swelling; Recorded By: Elisa Horowitz; 06/01/2021 3:15:40 PM Social History Problems Caffeine use (V49.89) (Z78.9) 1 CUP COFFEE DAILY, DIET SODA 1 BOTTLE DAILY Former smoker (V15.82) (Z87.891) QUIT CIGS 1982 No alcohol use No illicit drug use Review of Systems Constitutional: not feeling tired. Cardiovascular: chest pain and palpitations, but no intermittent leg claudication and as noted in HPI. Respiratory: no cough and no shortness of breath. Gastrointestinal: no change in bowel habits and no blood in stools. Integumentary: no skin rashes. Neurological: dizziness, but no seizures and no frequent falls. All other systems have been reviewed and are negative for complaint. Vitals Vital Signs Recorded: 04Sep2021 08:49AM Heart Rate60, L Radial [id number], RUE, Sitting Qzmerruij39, RUE, Sitting Height5 ft 8 in Yfukyd030 lb BMI Ujndhnisvh09.84 kg/m2 BSA Calculated2.11 Tobacco Useb) No Fall Screeninga) No falls within the last year Signatures Electronically signed by : Nick Razo DO; Sep 04 2021 9:01AM EST (Author) Normal [facility] Tobacco Screening.on 022 Fall risk assessment a) No falls within the last year [facility] 250 DO Work Phone: Tobacco use status CP b) No -[facility] 250 DO Work Phone: [facility] CARDIAC STRESS/REST INJE CTIONon 01-25-2021 [facility] CARDIAC STRESS/REST INJECTION Patient Name: KIM GARRISON STUDY: MYOCARDIAL PERFUSION STRESS TEST WITH LEXISCAN Performing facility: [facility], [address] [place] [address] St, [address], [place] [address] [facility] Provider: Nick Razo DO, [facility] PCP: Dr. Arlene Harrison Supervising provider: Bao Sheehan MD, [facility] INDICATION: Chest Pain; HISTORY: Gender: M; Age: 70 y/o ; Height: 172.72 cm; Weight: 98.1419239 kg. High Cholesterol; Diabetes; Previous [place]; HTN; Quit smoking 38 years ago. COMPARISON: Previous nuclear testing completed at [place]. ACCESSION NUMBER(S): [id number]; [id number]; [id number] ORDERING CLINICIAN: NICK RAZO TECHNIQUE: ONE DAY protocol. Stress injection: Date:01-25-21, 35.3 mCi of Myoview IV 20 seconds after rapid injection of Lexiscan. Rest injection: Date: 01-25-21, 10.8 mCi of Myoview IV at rest. The patient had a rapid injection of 0.4 mg of Lexiscan IV over 10 seconds. Imaging was performed by gated tomographic technique. Reason for Lexiscan: dizziness/unsteady/fal l risk STRESS TEST DATA: Resting heart rate was 58 BPM. Resting blood pressure was 120/74 mmHg. Peak blood pressure was 108/64 mmHg. Peak heart rate was 74 BPM. TEST TERMINATED DUE TO: Protocol completed FINDINGS: STRESS TEST RESULTS: Resting electrocardiogram revealed atrial fibrillation with slow ventricular response. There were no significant ischemic ECG changes, atrial fibrillation continued throughout the test. The patient did not have chest pains/symptoms during procedure. There was a normal recovery phase. IMAGING RESULTS: Image quality was good. Rest and stress tomographic images were reviewed and revealed normal perfusion without evidence of ischemia, myocardial infarction, or left ventricular dilatation with stress. Overall left ventricular systolic function appeared to be normal without regional wall motion abnormalities. Ejection fraction was 60%. TID is 0.93 and is normal. There was no evidence of attenuation artifact. IMPRESSION: Normal Lexiscan Myoview cardiac perfusion stress test. No evidence of ischemia or myocardial infarction by perfusion imaging. Normal left ventricular systolic function, ejection fraction 60%. When compared to a study from another lab from 2019 there has been no significant interval changes. Electronically signed by: BAO SHEEHAN MD [facility] Vital Signs Date Time Vital Sign Value Performing Clinician Faci litarsenio 12-19-2021 15:14-0400 Diastolic blood pressure 70 mm[Hg] Nick NILL [facility] 12-19-2021 15:14-0400 Heart rate 68 /min Nick NILL [facility] 12-19-2021 15:14-0400 Respiratory rate 16 /min Nick NILL [facility] [place] 12-19-2021 15:14-0400 Systolic blood pressure 116 mm[Hg] Nick NILL [facility] [place] [facility] 09-04-2021 08:49-0500 Body height 172.72 cm Iker M Hoy Work Phone: [facility] 250 DO Work Phone: 09-04-2021 08:49-0500 Body mass index (BMI) [Ratio] 32.84 kg/m2 Iker M Hoy Work Phone: [facility] 250 DO Work Phone: 09-04-2021 08:49-0500 Body surface area Derived from formula 2.11 m2 Iker M Hoy Work Phone: [facility] 250 DO Work Phone: 09-04-2021 08:49-0500 Body weight 97.98 kg Iker M Hoy Work Phone: [facility] 250 DO Work Phone: 09-04-2021 08:49-0500 Diastolic blood pressure 66 mm[Hg] Iker M Hoy Work Phone: [facility] DO Work Phone: 09-04-2021 08:49-0500 Heart rate 60 /min Iker M Hoy Work Phone: [facility] DO Work Phone: 09-04-2021 08:49-0500 Systolic blood pressure 138 mm[Hg] Iker Harrison Work Phone: [facility] DO Work Phone: Encounters Encounter Date Encounter Type Care Provider Facility Start: 10-07-2023 End: 10-07-2023 ambulatory [facility] Start: 08-06-2023 ambulatory [facility] Start: 08-06-2023 End: 08-06-2023 ambulatory [facility] Start: 07-03-2023 ambulatory Willie Galloway acility:[facility] Start: 06-24-2023 End: 06-24-2023 ambulatory [facility] Start: 06-20-2023 End: 06-20-2023 ambulatory [facility] Start: 04-14-2023 End: 04-15-2023 ambulatory Caleb JONES Facility:[facility] Start: 04-14-2023 End: 04-14-2023 Patient encounter procedure Caleb JONES [facility] Start: 12-31-2022 End: 12-31-2022 ambulatory GAVINO ROMANCKER [facility] Start: 12-11-2022 End: 12-12-2022 ambulatory GAVINO HUNTER Facility:[facility] Start: 11-13-2022 End: 11-14-[address] IKER HARRISON . Facility:[facility] Start: 10-16-2022 End: 11-15-2022 ambulatory SHAIKH Ankit REYNOLDS Facility:[facility] Start: 09-27-2022 End: 09-28-[address] IKER HARRISON . Facility:[facility] Start: 09-23-2022 End: 09-24-[address] IKER HARRISON . Facility:[facility] Start: 09-18-2022 End: 10-16-[address] IKER HARRISON . Facility:[facility] Start: 08-19-2022 End: 09-18-[address] IKER HARRISON . Facility:[facility] Start: 07-18-2022 End: 08-18-[address] IKER HARRISON . Facility:[facility] Start: 06-18-2022 End: 07-17-[address] IKER HARRISON . Facility:[facility] Start: 06-18-2022 End: 06-18-[address] IKER HARRISON . Facility:[facility] Start: 06-10-2022 End: 06-11-[address] IKER HARRISON . Facility:[facility] Start: 05-19-2022 End: 06-17-2022 ambulatory SHAIKH Ankit REYNOLDS Facility:[facility] Start: 05-09-[address] IKER HARRISON . Facili ty:[facility] Start: 05-06-2022 End: 05-07-[address] IKER HARRISON . Facility:[facility] Start: 05-02-2022 End: 05-02-[address] JASON CARVER . Facility:[facility] Start: 04-18-2022 End: 05-18-2022 ambulatory SHAIKH Ankit REYNOLDS Facility:[facility] Start: 03-18-2022 End: 04-17-2022 ambulatory SHAIKH Ankit REYNOLDS Facility:[facility] Start: 02-15-2022 End: 03-15-2022 ambulatory SHAIKH Ankit REYNOLDS Facility:[facility] Start: 01-28-2022 End: 01-28-[address] IKER HARRISON . Facility:[facility] Start: 01-16-2022 End: 02-15-2022 ambulatory SHAIKH Ankit REYNOLDS Facility:[facility] Start: 01-15-2022 End: 01-16-[address] CALEB JONES . Facility:[facility] Start: 12-19-2021 End: 12-19-2021 Patient encounter procedure Nick SIN [facility] Start: 12-17-2021 End: 01-15-2022 ambulatory SHAIKH Ankit REYNOLDS Facility:[facility] Start: 09-04-2021 Office outpatient visit 25 minutes [facility] Work [facility]: Start: 06-01-2021 Rx Renewal [facility] [place] Work Phone: Start: 10-14-2018 Patient encounter procedure Jonnathan Amaya Facility:[id number] Start: 03-05-2017 End: 03-06-2017 Ambulatory DEFAULT PHYSICIAN Facility:[facility] Procedures Date Procedure Procedure Detail Performing Clinician Start: 11-13-2022 Follow-up visit Follow-up PRIYANKKEZIAFatou NELSONSEMAJMERRICK Start: 09-23-[address] KVNG HARRISON . Comment on above: Performed By: #### V ITAD, PSASC #### [facility] [address] [place] [address] Dr. Caroline Bell Start: 01-15-[address] KVNG HARRISON . Comment on above: Performed By: #### P SAD #### [facility] [address] [place] [address] Dr. Caroline Bell Start: 10-08-2016 Cystoscopy Nick NI LL Arthroscopy of shoulder Mukesh ael NILL Cholecystectomy Iker Stevenson Ho y Work Phone: Cholecystectomy Nick NILL Colonoscopy Nick NILL Extraction of cataract Jaydon el NILL Insertion of inferio r vena caval filter Nick NILL Repair of musculoten dinous cuff of shoulder Iker Stevenson Hoy Work Phone: Tooth extraction Iker Stevenson H oy Work Phone: Total colonoscopy Iker Harrison Work Phone: Comment on above: PROCEDURE DATE 2015[place]; Plan of Treatment Date Care Activity Detail Author Start: 02-26-2022 FUV, Provider: Nick Razo, Status: Pen, Time: 10:45 AM [facility]UV, Provider: Nick Razo, Status: Pen, Time: 10:45 AM [facility] 250 DO Work Phone: Start: 09-04-2021 FUV, Provider: Nick Razo, Status: Pen, Time: 8:45 AM [facility], Provider: Nick Razo, Status: Pen, Time: 8:45 AM [place] [address] [place] Work Phone: Immunizations Immunization Date Immunization Notes Care Provider Fa cili 07-16-2021 Pfizer-BioNTech COVI D-19 Vacc 30 MCG/0.3ML Intramuscular Suspension Iker Harrison Work Phone: [place] [address] DO Work Phone: 05-09-2021 influenza, injectable,quadrivalent, preservative free, pediatric Iker Harrison Work Phone: [place] [address] DO Work Phone: 02-04-2021 diphtheria, tetanus toxoids and pertussis vaccine Iker Harrison Work Phone: [place] [address] DO Work Phone: 11-14-2020 Pfizer-BioNTech COVI D-19 Vacc 30 MCG/0.3ML Intramuscular Suspension Iker Harrison Work Phone: [place] [address] DO Work Phone: 10-23-2020 Pfizer-BioNTech COVI D-19 Vacc 30 MCG/0.3ML Intramuscular Suspension Iker Harrison Work Phone: [facility] 250 DO Work Phone: 10-16-2020 SARS-CoV-2 (COVID-19 ) mRNA BNT-162b2 vax Nick SIN [facility] [place] 05-24-2020 Seasonal trivalent influenza vaccine, adjuvanted, preservative free [facility] M Hoy [facility] Work Phone: 04-18-2020 influenza virus vacc ine, unspecified formulation Iker M Hoy Work Phone: [facility] 250 DO Work Phone: 05-18-2019 influenza virus vacc ine, unspecified formulation Iker M Hoy Work Phone: [facility] 250 DO Work Phone: 03-25-2019 Seasonal trivalent influenza vaccine, adjuvanted, preservative free Iker M Hoy Work Phone: [facility] 250 DO Work Phone: 09-22-2018 influenza, seasonal, injectable Iker M Hoy Work Phone: [facility] 250 DO Work Phone: 09-22-2018 pneumococcal polysaccharide vaccine, 23 valent Iker M Hoy Work Phone: [facility] 250 DO Work Phone: 07-18-2018 influenza virus vacc ine, unspecified formulation Iker M Hoy Work Phone: [facility] 250 DO Work Phone: 04-05-2018 influenza, injectabl e, quadrivalent, preservative free Iker M Hoy Work Phone: [facility] 250 DO Work Phone: 07-07-2017 pneumococcal conjuga te vaccine, 13 valent Iker M Hoy Work Phone: [facility] 250 DO Work Phone: 03-26-2017 Seasonal trivalent influenza vaccine, adjuvanted, preservative free [facility]ker M Hoy [facility] Work Phone: 08-18-2016 pneumococcal polysaccharide vaccine, 23 valent [facility]ker Harrison [facility] Work Phone: Payers Date Payer Category Payer Self-pay [id number] 1958 Private Health Insurance [id number] 1958 Self-pay [id number] 1950 Unknown [id number] 2.16. [id number] 1950 Unknown [id number] 2.16.84 0.1.818573.3.579.2.593 1950 Unknown [id number] 2.16.84 0.1.174844.3.579.2.593 1950 Unknown [id number] 2.16.84 0.1.923920.3.579.2.593 1951 Unknown [id number] 2.16.84 0.1.237976.3.579.2.593 1951 Unknown [id number] 2.16.84 0.1.139244.3.579.2.593 1951 Unknown [id number] 2.16.84 0.1.917301.3.579.2.593 1951 Unknown [id number] 2.16.84 0.1.820458.3.579.2.593 1951 Unknown [id number] 2.16.84 0.1.180768.3.579.2.593 1951 Unknown [id number] 2.16.84 0.1.932475.3.579.2.593 1951 Unknown [id number] 2.16.84 0.1.813015.3.579.2.593 1951 Unknown [id number] 2.16.84 0.1.390069.3.579.2.593 1951 Unknown [id number] 2.16.84 0.1.734275.3.579.2.593 1951 Unknown [id number] 2.16.84 0.1.487331.3.579.2.593 1951 Unknown [id number] 2.16.84 0.1.321041.3.579.2.593 1951 Unknown [id number] 2.16.84 0.1.524300.3.579.2.593 1951 Unknown [id number] 2.16.84 0.1.486035.3.579.2.593 1951 Unknown [id number] 2.16.84 0.1.203596.3.579.2.593 1951 Unknown [id number] 2.16.84 0.1.089913.3.579.2.593 1951 Unknown [id number] 2.16.84 0.1.021028.3.579.2.593 1951 Unknown [id number] 2.16.84 0.1.466207.3.579.2.593 1951 Unknown [id number] 2.16.84 0.1.239551.3.579.2.593 1951 Unknown [id number] 2.16.84 0.1.728216.3.579.2.593 1950 Unknown [id number] 2.16.8 40.1.360464.3.579.2.727 Unknown Unknown [id number] Unknown [id number] 2.16.8 40.1.264285.3.579.2.531 Social History Date Type Detail Facility Tobacco smoking stat [facility] Unknown if ever smoked [facility] Start: 1950 Sex Assigned At Male F [facility] No alcohol use No alcohol use [facility] 250 DO Work Phone: Comment on above: QUIT CIGS 1982; 1 CUP COFFEE DAILY, DIET SODA 1 BOTTLE DAILY; Start: 12-19-2021 End: 01-18-2022 Tobacco smoking status Ex-smoker (finding) [facility] Tobacco smoking status Never [facility] [place] Sex Assigned At Male [facility] Goals Date Patient Goal Desired Activity /State Clinical Notes 01-18-2022 to 10-07-2023 Note Date & Type Note Facility 10-07-2023 Note [facility] Consult Note Reason for visit: Syncope/ Afib 10/07/23 Patient underwent cardioversion to sinus rhythm on 08/06/2023 subsequently he also underwent a loop implant on the same day. Episodes revealed recurrence of A-fib soon after that. He did feel better in SR. Denies chest pain, lightheadedness/syncope, and bleeding on Eliquis. HPI: Kim Garrison is a 73 y.o. year old with past medical history of HLD and Dx of Afib who has never been cardioverted for Afib. He complains of syncope in 07/2022 and a repeat one in December. As far as his Afib is concerned, he was fiorst Dx with Afib in 2013. Lives with brother. Able to do regular shopping but gets tired when he exerts himself. PMH: Past Medical History: Diagnosis Date A-fib (CMS/HCC) Bradycardia Diabetes mellitus (CMS/HCC) HLD (hyperlipidemia) Hypertension Syncope PSH: Past Surgical History: Procedure Laterality Date CHOLECYSTECTOMY MULTIPLE TOOTH EXTRACTIONS ROTATOR CUFF REPAIR SH: Social Determinants of Health Tobacco Use: Medium Risk (06/20/2023) Patient History Smoking Tobacco Use: Former Smokeless Tobacco Use: Never Passive Exposure: Not on file Alcohol Use: Not on file Financial Resource Strain: Not on file Food Insecurity: Not on file Transportation Needs: Not on file Physical Activity: Not on file Stress: Not on file Social Connections: Not on file Intimate Partner Violence: Not on file Depression: Not on file Housing Stability: Not on file Utilities: Not on file Allergies: Allergies Allergen Reactions Oxycodone-Acetaminophen Hallucinations Zithromax [Azithromycin] Weight: 104kg Visit Vitals BP 132/83 (BP Location: Right arm, Patient Position: Sitting) Pulse 96 Ht 1.727 m (5' 8 ) Wt 104 kg (230 lb) SpO2 96% BMI 34.97 kg/m??? Smoking Status Former BSA 2.23 m??? Meds: Current Outpatient Medications on File Prior to Visit Medication Sig Dispense Refill amiodarone (Pacerone) 200 mg tablet Take 1 tablet (200 mg) by mouth in the morning. 90 tablet 3 cetirizine (ZyrTEC) 10 mg tablet Take 10 mg by mouth. Eliquis 5 mg tablet Take 5 mg by mouth in the morning and at bedtime. furosemide (Lasix) 20 mg tablet Take 1 tablet (20 mg) by mouth in the morning. (Patient taking differently: Take 20 mg by mouth every other day.) 90 tablet 3 HumaLOG KwikPen Insulin 100 unit/mL injection 10 Units. insulin glargine (Lantus) 100 unit/mL (3 mL) pen Inject 30 Units under the skin. metoprolol tartrate (Lopressor) 50 mg tablet Take 0.5 tablets (25 mg) by mouth in the morning and at bedtime. 30 tablet 0 nitroglycerin (Nitrostat) 0.[address] 0.4 mg under the tongue every 5 (five) minutes if needed for chest pain. sertraline (Zoloft) 100 mg tablet Take 100 mg by mouth in the morning. simvastatin (Zocor) 20 mg tablet Take 20 mg by mouth at bedtime. tamsulosin (Flomax) 0.4 mg 24 hr capsule Take 0.4 mg by mouth. No current facility-administered medications on file prior to visit. ROS: Review of Systems Cardiovascular: Positive for dyspnea on exertion ( not like it was ), irregular heartbeat, leg swelling and palpitations. Musculoskeletal: Positive for myalgias. All other systems reviewed and are negative. Physical Exam: Telemed Labs: @LABRESULTS@ No results found for: CHOLESTEROL TOTAL , HDL , LDL CALC , LDL DIRECT , TRIGLYCERIDES , TSH , T3 TOTAL , T4 TOTAL , THYROID PEROXIDASE AB , BNP EKG: Encounter Date: 08/06/23 ECG 12 lead Result Value Ventricular Rate 46 Atrial Rate 46 NJ Interval 248 QRS DURATION 104 QT Interval 514 QTC CALCULATION(BAZETT) 449 P Pollard 25 R-Pollard -37 T Wave Pollard 16 Impression Sinus bradycardia with 1st degree A-V block Left axis deviation Inferior infarct , age undetermined Abnormal ECG When compared with ECG of 06-AUG-2023 10:34, (unconfirmed) Sinus rhythm has replaced Atrial fibrillation Confirmed by Shanice CABRAL, ORLY Richmond ([id number]) on 08/06/2023 5:58:45 PM Event monitor Echo: 09/27/22 Stress test: Coronary angiogram: @CATH@ Diagnostic Imaging: No images are attached to the encounter. Assessment and Plan: Persistent Afib: patient maintain sinus rhythm on amiodarone and so the option right now would be to proceed with catheter ablation to maintain sinus rhythm if it that can help maintain sinus rhythm. there is evidence of significant atrial remodeling on the echocardiogram and so the success of maintaining sinus rhythm would be limited. HTN: Ct meds HLD: Ctstatin we talked about A-fib ablation and the risk and benefits. Afib ablation would require placement of multiple catheters in the heart under moderate sedation which will include diagnostic catheters, ICE catheters and ablation catheters. The risk of the procedures can be described as minor and major minor complications being discomfort in the groin area, bleeding, infection and vascular complications (more content not included)... [facility] 08-06-2023 Note LOOP IMPLANT PROCEDU RE NOTE DATE OF PROCEDURE: 08/06/2023 PERFORMING PHYSICIAN: Dr. Wesley Saenz MANAGER [employer]ACLE RETAIL: MCKAY INDICATIONS FOR PROCEDURE: 1. Syncope CONSENT: Patient LOCATION: EP lab PROCEDURAL SEDATION: None FLUOROSCOPY TIME: 0min PREPARATION: Preoperative antibiotics was administered. EBL:5cc SPECIMEN REMOVED: None PROCEDURES PERFORMED: 1. LOOP implant PROCEDURE NOTE: Patient was brought to the EP lab in the post absorptive state. A procedural pause was performed verifying the patient, the procedure. Sterile prep and drape were performed over the left precordium and anesthesia with 1% lidocaine was followed by a small incision was made in the 3rd intercostal space near the sternum on the left using the [employer] [place] [employer] tool. The loop recorder was then injected subcutaneously and noted to have good sensing parameters. Technical details of the device as noted below. The skin was then closed with 3-0 absorbable monofilament suture and glue applied to hold the edges together. Tegaderm was applied to cover the wound. The patient appeared to tolerate the procedure well and was returned to the room in stable condition. No complications were immediately observed. Sensin.33mV. IMPRESSION: Successful placement of LOOP implant with excellent sensing parameters. COMPLICATIONS: None RECOMMENDATIONS: 1. Occlusive dressing to be changed after 7 days. 2. Do not wet the incision. Wesley Saenz MD Cardiac Electrophysiology. [facility] 08-06-2023 Note DIRECT CARDIOVERSION PROCEDURE NOTE Date: 08/06/2023. Type of procedure: DC Cardioversion. Performed by: Wesley Saenz MD Informed consent: Signed by patient. Indication: 73 year old with past medical history of HLD and Dx of Afib who has never been cardioverted for Afib. He complains of syncope in 07/2022 and a repeat one in December. As far as his Afib is concerned, he was first Dx with Afib in 2013. He gets tired when he exerts himself. He is currently Eliquis which he seems to tolerate without any issues. He had been on uninterrupted anticoagulation for minimum of 4 weeks. Hence, JOHANA was deferred. Preparation and technique: Patient was brought into the procedure room. After an informed consent was obtained following a discussion with the patient where I explained the risk and benefit of the procedure that is not limited to skin louise, fluid in the lungs, heart attack, stroke, or even , though that is very rare. Patches were placed in anteroposterior direction and once patient was made comfortable with Versed mg and Fentanyl 25mcg. Following sedation, the patient underwent synchronized cardioversion using 360J which converted to sinus rhythm. Post procedure, the patient was stable. No complications noted. Plan: Continue anticoagulation and consider ablation. Wesley Saenz MD Cardiac Electrophysiology [facility] 08-06-2023 Note Patient: Kim correa Procedure Information Date/Time: 08/06/23 1200 Procedure: Cardioversion Location: [facility] RO[facility] / [facility] (Cath) Providers: Wesley Saenz MD Clinical information reviewed: Allergies Meds Physical Exam Airway Mallampati: II TM distance: >3 FB Neck ROM: full Cardiovascular Dental Pulmonary Abdominal Anesthesia Plan ASA 2 CSE Anesthetic plan and risks discussed with patient. Use of blood products discussed with patient who. Additional Equipment Requests [facility] 08-06-2023 Note This report has been cancelled. [facility] 06-24-2023 Note [place] Electrophysiology Consult Note Reason for visit: Syncope/ Afib Date of Telehealth Visit: 06/24/23 The patient was notified that using 3rd democrat telecommunication application (e.g., [employer]) is not HIPPA compliant and may carry some privacy risks. Yes The visit was conducted [id number] with the use of audio and video technology [email or web address] between patient and provider for a virtual visit. Verbal consent to provide and bill this service was obtained on 06/24/23 . No signature was obtained due to the COVID-19 pandemic. Patient Location: Patient Home I spent 16 minutes of total time on the day of the visit. This time was spent preparing for the visit, obtaining and reviewing any outside history/data, taking a history, performing an exam/evaluation, counseling and educating patient/family about the diagnosis and plan, performing medical decision making, referring to and communicating with other health care referrals, independently interpreting results and documenting in the EMR, and coordinating care. Please see the additional documentation in this note for specific details. HPI: Kim Garrison is a 73 y.o. year old with past medical history of HLD and Dx of Afib who has never been cardioverted for Afib. He complains of syncope in 07/2022 and a repeat one in December. As far as his Afib is concerned, he was fiorst Dx with Afib in 2013. Lives with brother. Able to do regular shopping but gets tired when he exerts himself. PMH: Past Medical History: Diagnosis Date A-fib (CMS/HCC) Bradycardia Diabetes mellitus (CMS/HCC) HLD (hyperlipidemia) Hypertension Syncope PSH: Past Surgical History: Procedure Laterality Date CHOLECYSTECTOMY MULTIPLE TOOTH EXTRACTIONS ROTATOR CUFF REPAIR SH: Social Determinants of Health Tobacco Use: Medium Risk (06/20/2023) Patient History Smoking Tobacco Use: Former Smokeless Tobacco Use: Never Passive Exposure: Not on file Alcohol Use: Not on file Financial Resource Strain: Not on file Food Insecurity: Not on file Transportation Needs: Not on file Physical Activity: Not on file Stress: Not on file Social Connections: Not on file Intimate Partner Violence: Not on file Depression: Not on file Housing Stability: Not on file Allergies: Allergies Allergen Reactions Oxycodone-Acetaminophen Hallucinations Zithromax [Azithromycin] Weight: 96.6kg Visit Vitals Smoking Status Former Meds: Current Outpatient Medications on File Prior to Visit Medication Sig Dispense Refill cetirizine (ZyrTEC) 10 mg tablet Take 10 mg by mouth. Eliquis 5 mg tablet Take 5 mg by mouth in the morning and at bedtime. furosemide (Lasix) 20 mg tablet Take 1 tablet (20 mg) by mouth in the morning. (Patient taking differently: Take 20 mg by mouth every other day.) 90 tablet 3 HumaLOG KwikPen Insulin 100 unit/mL injection 10 Units. insulin glargine (Lantus) 100 unit/mL (3 mL) pen Inject 30 Units under the skin. metoprolol tartrate (Lopressor) 50 mg tablet every 12 (twelve) hours. nitroglycerin (Nitrostat) 0.[address] 0.4 mg under the tongue every 5 (five) minutes if needed for chest pain. sertraline (Zoloft) 100 mg tablet Take 100 mg by mouth in the morning. simvastatin (Zocor) 20 mg tablet Take 20 mg by mouth at bedtime. tamsulosin (Flomax) 0.4 mg 24 hr capsule Take 0.4 mg by mouth. No current facility-administered medications on file prior to visit. ROS: Cardio Basic Cardiovascular Symptoms: no lightheadedness, no leg edema, no syncope, no orthopnea, no PND, no claudication, Constitutional Constitutional: no fever, no night sweats, no significant weight gain, no significant weight loss, no exercise intolerance Eyes Eyes: no dry eyes, no irritation, no vision change ENMT Ears: no difficulty hearing, no ear pain Nose: no frequent nosebleeds, Mouth/Throat: no sore throat, no bleeding gums, no snoring, no dry mouth, no mouth ulcers, no oral abnormalities, no teeth problems Respiratory Respiratory: no cough, no wheezing, no coughing up blood, no sleep apnea Musculoskeletal Musculoskeletal: no muscle aches, no muscle weakness, joint pain+, no back pain, no swelling in the extremities Integumentary Skin no rash, no ulcer, no varicosities, no discoloration, no pruritus Neurologic Neurologic: no loss of consciousness, no weakness, no numbness, no seizures, no dizziness, no headaches Psychiatric Psych: no depression, feeling safe in relationship, no alcohol abuse, Hematologic/Lymphatic Hematologic/Lymphatic no swollen glands, no bruising Physical Exam: Telemed Labs: @LABRESULTS@ No results found for: CHOLESTEROL TOTAL, HDL, LDL CALC, LDL DIRECT, TRIGLYCERIDES, TSH, T3 TOTAL, T4 TOTAL, THYROID PEROXIDASE AB, BNP, BNP, BNP EKG: No results found for this or any previous visit (from the past 4464 hour(s)). Event monitor Echo: 09/27/22 Stress test: Coronary angiogram: @CATH@ Diagnostic Imaging: (more content not included)... [facility] 06-20-2023 Note [place] Electrophysiology Consult Note Reason for visit: new to EP, referred for AF HPI: Kim Garrison is a 73 y.o. year old with past medical history of syncope, bradycardia, AF, htn, hfpef, copd, ckd3 he is here to establish care with EP for his A-fib he has never been put on amiodarone or cardioverted he had a Holter monitor placed 06/11/2022 which she only wore for 1 day and it showed a sustained A-fib episode with controlled VR ECG 06/20/2023 A-fib controlled VR 12/2022 per elsa screenplay writer 12/31/2022 After last visit, another 30 day event monitor was ordered, pending final readings. He states he has been feeling well overall, no changes in sx's. He has some intermittent palpitations, typically when he is laying down getting ready for bed, lasts for a short period of time and resolves on its own. He does not have accompanied sx's. 07/29/2022 -He was seen as a new patient while admitted to [facility] for c/o syncope. He was found to be hypoglycemic. He was also bradycardic during his admission but he was asymptomatic. ECHO was unremarkable. We ordered for a 30 day event monitor. -He hasn't passed out for about 1 month. He had 3 frequent episodes within a month. -They did find that his blood sugars were dropping. His metformin has been discontinued and no syncopal episodes since then. -He wore his heart monitor for 30-days however only a little over 1 day of date was received. -He denies CP, dyspnea, orthopnea, PND, LE edema, dizziness/LH, palpitations, near syncope/syncope, bleeding issues. PMH: Past Medical History: Diagnosis Date A-fib (CMS/HCC) Bradycardia Diabetes mellitus (CMS/HCC) HLD (hyperlipidemia) Hypertension Syncope PSH: Past Surgical History: Procedure Laterality Date CHOLECYSTECTOMY MULTIPLE TOOTH EXTRACTIONS ROTATOR CUFF REPAIR SH: Social Determinants of Health Tobacco Use: Medium Risk (06/20/2023) Patient History Smoking Tobacco Use: Former Smokeless Tobacco Use: Never Passive Exposure: Not on file Alcohol Use: Not on file Financial Resource Strain: Not on file Food Insecurity: Not on file Transportation Needs: Not on file Physical Activity: Not on file Stress: Not on file Social Connections: Not on file Intimate Partner Violence: Not on file Depression: Not on file Housing Stability: Not on file Allergies: Allergies Allergen Reactions Oxycodone-Acetaminophen Hallucinations Zithromax [Azithromycin] Weight: No weight available Visit Vitals Smoking Status Former Meds: Current Outpatient Medications on File Prior to Visit Medication Sig Dispense Refill cetirizine (ZyrTEC) 10 mg tablet Take 10 mg by mouth. Eliquis 5 mg tablet Take 5 mg by mouth in the morning and at bedtime. furosemide (Lasix) 20 mg tablet Take 1 tablet (20 mg) by mouth in the morning. (Patient taking differently: Take 20 mg by mouth every other day.) 90 tablet 3 HumaLOG KwikPen Insulin 100 unit/mL injection 10 Units. insulin glargine (Lantus) 100 unit/mL (3 mL) pen Inject 24 Units under the skin. metoprolol tartrate (Lopressor) 50 mg tablet every 12 (twelve) hours. nitroglycerin (Nitrostat) 0.[address] 0.4 mg under the tongue every 5 (five) minutes if needed for chest pain. sertraline (Zoloft) 100 mg tablet Take 100 mg by mouth in the morning. simvastatin (Zocor) 20 mg tablet Take 20 mg by mouth at bedtime. tamsulosin (Flomax) 0.4 mg 24 hr capsule Take 0.4 mg by mouth. No current facility-administered medications on file prior to visit. ROS: Cardio Basic Cardiovascular Symptoms: no lightheadedness, no leg edema, no syncope, no orthopnea, no PND, no claudication, Constitutional Constitutional: no fever, no night sweats, no significant weight gain, no significant weight loss, no exercise intolerance Eyes Eyes: no dry eyes, no irritation, no vision change ENMT Ears: no difficulty hearing, no ear pain Nose: no frequent nosebleeds, Mouth/Throat: no sore throat, no bleeding gums, no snoring, no dry mouth, no mouth ulcers, no oral abnormalities, no teeth problems Respiratory Respiratory: no cough, no wheezing, no coughing up blood, no sleep apnea Musculoskeletal Musculoskeletal: no muscle aches, no muscle weakness, joint pain+, no back pain, no swelling in the extremities Integumentary Skin no rash, no ulcer, no varicosities, no discoloration, no pruritus Neurologic Neurologic: no loss of consciousness, no weakness, no numbness, no seizures, no dizziness, no headaches Psychiatric Psych: no depression, feeling safe in relationship, no alcohol abuse, Hematologic/Lymphatic Hematologic/Lymphatic no swollen glands, no bruising Physical Exam: Constitutional General Appearance: well-nourished, well-developed, appears stated age Level of Distress: comfortable Psychiatric Mental Status: alert, normal affect Orientation: oriented to time, place, and person Insight: good judgement Eyes Lids and Conjunctivae: n (more content not included)... [facility] 12-31-2022 Note Cardiovascular Medic ine [place] [facility] SUBJECTIVE No chief complaint on file. Kim Garrison is a 72 y.o. male here for follow-up. His brother accompanied him today. HPI 12/31/2022 After last visit, another 30 day event monitor was ordered, pending final readings. He states he has been feeling well overall, no changes in sx's. He has some intermittent palpitations, typically when he is laying down getting ready for bed, lasts for a short period of time and resolves on its own. He does not have accompanied sx's. 07/29/2022 -He was seen as a new patient while admitted to [facility] for c/o syncope. He was found to be hypoglycemic. He was also bradycardic during his admission but he was asymptomatic. ECHO was unremarkable. We ordered for a 30 day event monitor. -He hasn't passed out for about 1 month. He had 3 frequent episodes within a month. -They did find that his blood sugars were dropping. His metformin has been discontinued and no syncopal episodes since then. -He wore his heart monitor for 30-days however only a little over 1 day of date was received. -He denies CP, dyspnea, orthopnea, PND, LE edema, dizziness/LH, palpitations, near syncope/syncope, bleeding issues. 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 Microscopic hematuria Nocturia Posttraumatic stress disorder Stage 3 chronic kidney disease ([facility]) Acute bronchitis Acute embolism and thrombosis of unspecified deep veins of right lower extremity ([facility]) Allergic rhinitis Arthritis Chronic congestive heart failure ([facility]) Chronic pulmonary embolism ([facility]) Concussion with loss of consciousness <= 30 min Coronary artery disease Deep vein phlebitis and thrombophlebitis of lower extremity, unspecified laterality ([facility]) Fatigue Diabetic renal disease ([facility]) Fracture of coccyx, initial encounter for closed fracture ([facility]) Gagan filter in place Impacted cerumen Iron deficiency Multiple injuries Major depressive disorder, single episode, unspecified Overweight Pain in limb Peripheral vertigo Right upper quadrant pain Superficial thrombophlebitis Tobacco user Benign prostatic hyperplasia Edema Hypercholesterolemia Chronic kidney disease, stage III (moderate) ([facility]) Post-traumatic stress disorder Past Medical History: Diagnosis Date A-fib ([facility]) Bradycardia Diabetes mellitus ([facility]) HLD (hyperlipidemia) Hypertension Syncope Family History Problem Relation Name Age of Onset Coronary artery disease Mother Coronary artery disease Father Heart attack Father Social History Tobacco Use Smoking status: Former Years: 5.00 Types: Cigarettes Quit date: 1982 Years since quittin.4 Smokeless tobacco: Never Substance Use Topics Alcohol use: Not Currently Drug use: Never Allergies Allergen Reactions Oxycodone-Acetaminophen Hallucinations Zithromax [Azithromycin] ROS Cardiovascular: Positive for dyspnea on exertion, irregular heartbeat, leg swelling and palpitations. Musculoskeletal: Positive for myalgias. All other systems reviewed and are negative. OBJECTIVE Visit Vitals BP 112/64 (BP Location: Left arm, Patient Position: Sitting) Pulse 66 Ht 1.727 m (5' 8 ) Wt 96.6 kg (213 lb) SpO2 99% BMI 32.39 kg/m??? Smoking Status Former BSA 2.15 m??? Medications: Current Outpatient Medications: cetirizine (ZyrTEC) 10 mg tablet, Take 10 mg by mouth., Disp: , Rfl: Eliquis 5 mg tablet, Take 5 mg by mouth in the morning and at bedtime., Disp: , Rfl: furosemide (Lasix) 20 mg tablet, Take 1 tablet (20 mg) by mouth in the morning. (Patient taking differently: Take 20 mg by mouth every other day.), Disp: 90 tablet, Rfl: 3 HumaLOG KwikPen Insulin 100 unit/mL injection, 10 Units., Disp: , Rfl: insulin glargine (Lantus) 100 unit/mL (3 mL) pen, Inject 24 Units under the skin., Disp: , Rfl: metoprolol tartrate (Lopressor) 50 mg tablet, every 12 (twelve) hours., Disp: , Rfl: nitroglycerin (Nitrostat) 0.4 mg SL tablet, Place 0.4 mg under the tongue every 5 (five) minutes if needed for chest pain., Disp: , Rfl: sertraline (Zoloft) 100 mg tablet, Take 100 mg by mouth in the morning., Disp: , Rfl: simvastatin (Zocor) 20 mg tablet, Take 20 mg by mouth at bedtime., Disp: , Rfl: tamsulosin (Flomax) 0.4 mg 24 hr capsule, Take 0.4 mg by mouth., Disp: , Rfl: Physical Exam Vitals reviewed. Constitutional: Appearance: Normal appearance. He is normal weight. HENT: Head: Normocephalic and atraumatic. Ri (more content not included)... [facility] 12-31-2022 Note Patient here for [facility] [employer] event monitor. Had labs 12/11. Says his afib bothers him at times. Denies chest pain and bleeding on Eliquis. Review of Systems Cardiovascular: Positive for dyspnea on exertion, irregular heartbeat, leg swelling and palpitations. Musculoskeletal: Positive for myalgias. All other systems reviewed and are negative. [facility] 11-13-2022 Note Cardiovascular Medic ine [place] [facility] SUBJECTIVE Chief Complaint Patient presents with Follow-up 3 months Kim Garrison is a 72 y.o. male here for follow-up. HPI Patient is a 72-year-old male with a past medical history including diabetes, A-fib on Eliquis. Patient was recently admitted due to syncope. This was thought to be secondary to hypoglycemia. Cardiac work-up at that time was unremarkable. Echo was unremarkable. 30-day event monitor was ordered, however only 1 day of information was transmitted. Patient has not had any recurrent syncope since his hospitalization since discontinuation of metformin. No CP, dyspnea, orthopnea, PND, LE edema, dizziness/LH, palpitations, near syncope/syncope, bleeding issues. 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 Microscopic hematuria Nocturia Posttraumatic stress disorder Stage 3 chronic kidney disease (CMS/HCC) Past Medical History: Diagnosis Date A-fib (CMS/HCC) Bradycardia Diabetes mellitus (CMS/HCC) HLD (hyperlipidemia) Hypertension Syncope Family History Problem Relation Name Age of Onset Coronary artery disease Mother Coronary artery disease Father Heart attack Father Social History Tobacco Use Smoking status: Former Years: 5.00 Types: Cigarettes Quit date: 1982 Years since quittin.3 Smokeless tobacco: Never Substance Use Topics Alcohol use: Not Currently Drug use: Never Allergies Allergen Reactions Oxycodone-Acetaminophen Hallucinations Zithromax [Azithromycin] Review of Systems Constitutional: Negative. HENT: Negative. Eyes: Negative. Cardiovascular: Negative for chest pain, dyspnea on exertion, irregular heartbeat, leg swelling, near-syncope, orthopnea, palpitations, paroxysmal nocturnal dyspnea and syncope. Respiratory: Negative. Endocrine: Negative. Skin: Negative. Musculoskeletal: Negative. Gastrointestinal: Negative. Genitourinary: Negative. Neurological: Negative. Psychiatric/Behavioral: Negative. OBJECTIVE Visit Vitals BP 132/76 Pulse 69 Ht 1.727 m (5' 8 ) Wt 94.7 kg (208 lb 12.8 oz) BMI 31.75 kg/m??? Smoking Status Former BSA 2.13 m??? Medications: Current Outpatient Medications: cetirizine (ZyrTEC) 10 mg tablet, Take 10 mg by mouth., Disp: , Rfl: Eliquis 5 mg tablet, Take 5 mg by mouth in the morning and at bedtime., Disp: , Rfl: FreeStyle Lite Strips strip, , Disp: , Rfl: furosemide (Lasix) 20 mg tablet, Take 1 tablet (20 mg) by mouth in the morning., Disp: 90 tablet, Rfl: 3 HumaLOG KwikPen Insulin 100 unit/mL injection, 10 Units., Disp: , Rfl: insulin glargine (Lantus) 100 unit/mL (3 mL) pen, Inject 24 Units under the skin., Disp: , Rfl: metoprolol succinate XL (Toprol-XL) 50 mg 24 hr tablet, Take 50 mg by mouth in the morning and at bedtime. Do not crush or chew., Disp: , Rfl: nitroglycerin (Nitrostat) 0.4 mg SL tablet, Place 0.4 mg under the tongue every 5 (five) minutes if needed for chest pain., Disp: , Rfl: sertraline (Zoloft) 100 mg tablet, Take 100 mg by mouth in the morning., Disp: , Rfl: simvastatin (Zocor) 20 mg tablet, Take 20 mg by mouth at bedtime., Disp: , Rfl: tamsulosin (Flomax) 0.4 mg 24 hr capsule, Take 0.4 mg by mouth., Disp: , Rfl: Physical Exam Vitals reviewed. Constitutional: Appearance: Normal appearance. He is normal weight. HENT: Head: Normocephalic and atraumatic. Right Ear: External ear normal. Left Ear: External ear normal. Eyes: Extraocular Movements: Extraocular movements intact. Pupils: Pupils are equal, round, and reactive to light. Neck: Vascular: No carotid bruit. Comments: No JVD Cardiovascular: Rate and Rhythm: Normal rate and regular rhythm. Pulses: Normal pulses. Heart sounds: Normal heart sounds. Pulmonary: Effort: Pulmonary effort is normal. Breath sounds: Normal breath sounds. Abdominal: General: Bowel sounds are normal. Palpations: Abdomen is soft. Musculoskeletal: General: Normal range of motion. Cervical back: Neck supple. Right lower leg: No edema. Left lower leg: No edema. Skin: General: Skin is warm and dry. Neurological: General: No focal deficit present. Mental Status: He is alert and oriented to person, place, and time. Psychiatric: Mood and Affect: Mood normal. Behavior: Behavior normal. Thought Content: Thought content normal. Judgment: Judgment normal. Labs/Testing/Procedures: No results found for any previous visit. No results found for: EXTCMP, BMPR1A, CBCDIF, BNP, BNP, LASAP, RED ECHO (05/19 (more content not included)... [facility] 05-02-2022 Note PROCEDURE: XR SHOULD ER LT 2V or > HISTORY: Unspecified fall COMPARISON: None. FINDINGS: BONES:No fracture, dislocation, or bone lesion. Mild degenerative changes of the glenohumeral joint and acromioclavicular joint. SOFT TISSUES:No visible soft tissue swelling. EFFUSION:None visible. OTHER: Negative. IMPRESSION: 1. Mild degenerative changes. 2. No acute bone abnormality. Examination is slightly limited since clip and wire lead for heart monitor is positioned directly over the humeral head. Electronically authenticated by: TONY IYER Date: 2022-05-02 15:01 [facility] 01-18-2022 Hospital Discharge instructions Follow Up Care 01/18/2022 09:12:56 With:BILL NARAYANAN, Caleb Wyatt, URL Address: [facility] [address], [place] [address]- [phone] When: Unknown [facility] Evaluation + Plan note Future Appointments Appointment Date:01/18/2022 08:30:00 AM Scheduled Provider:Caleb JONES MD Location:[facility] Appointment Type:URO Office Visit General [facility] [place] Evaluation note No assessment inform ation available [facility] Work Phone: History of Present illness Narrative Mr. Garrison is a 71-year-old male seen back today for follow-up mostly on his atrial fibrillation. His atrial fibrillation is permanent. He has had occasional episodes of chest discomfort and had a fairly recent stress test that was negative. Does not have any specific cardiac complaints today. No symptoms related to his atrial fibrillation.Physical exam:Neck: No carotid bruits are heardLungs: ClearHeart: Irregularly irregular without murmurs or extra soundsExtremities: Trace edemaRecommendation is continuation of current medications. No changes were made. He seems to be reasonably stable from cardiac perspective. He is to return in 6 months for follow-up. [facility] [address] DO Work Phone: Hospital course Narrative No data available for this section [facility] [place] [facility] Discharge instructions No data available for this section [facility] [place] Progress note No data available for this section [facility] [place] Summary Purpose Family History No Family History Records FoundUnknown Family Member Name Dates Details Heart problem: Mother Status:Active Family history of malignant neoplasm of prostate: Brother(V16.42, Z80.42) Status:Active Family history of malignant neoplasm of colon: Father, Brother(V16.0, Z80.0) Status:Active Relationship Condition Age at Onset Recorded Date/T monserrat Not Specified Hypertension Unknown Advance Directives No Advanced Directives Records FoundNo Advanced Directives Records FoundNo Advanced Directives Records FoundNo Advanced Directives Records FoundNo Advanced Directives Records FoundNo Advanced Directives Records FoundNo Advanced Directives Records FoundNo Advanced Directives Records Found Assessments No Assessments Information AvailableNo Assessments Information Available Chief Complaint KIM GARRISON is being seen for a 6 month follow-up of. Additional Source Comments (unrecognized sect ion and content) No Status Records FoundNo Status Records FoundNo Status Records FoundNo Status Records FoundNo Status Records FoundNo Status Records FoundNo Status Records FoundNo Status Records Found INFORMATION SOURCE (unrecogn ized section and content) DATE CREATED AUTHOR 02/11/2018 [facility] DATE CREATED AUTHOR AUTHOR'S ORGANIZ ATION 10/29/2018 [facility] DATE CREATED AUTHOR AUTHOR'S ORGANIZ ATION 01/28/2021 [facility] DATE CREATED AUTHOR AUTHOR'S ORGANIZ ATION 09/04/2021 [facility] [employer] DATE CREATED AUTHOR AUTHOR'S ORGANIZ ATION 12/15/2022 [facility] DATE CREATED AUTHOR AUTHOR'S ORGANIZ ATION 04/15/2023 [facility] DATE CREATED AUTHOR AUTHOR'S ORGANIZ ATION 09/17/2023 [facility] DATE CREATED AUTHOR AUTHOR'S ORGANIZ ATION 10/08/2023 [facility] Patient Care team informatio n (unrecognized section and content) Personnel Name: Iker Harrison MD Address: Address: [address] [place] [address] Goals (unrecognized section and content) Goals may be documented in a n alternate section FOR RECORDS PERTAINING TO PATIENTS WHO ARE OR HAVE BEEN ENROLLED IN A CHEMICAL DEPENDENCY/SUBSTANCEABUSE PROGRAM, SOME INFORMATION MAY BE OMITTED. This clinical summary was aggregated from multiple sources. Caution should be exercised in using it in the provision of clinical care. This summary normalizes information from multiple sources, and as a consequence, information in this document may materially change the coding, format and clinical context of patient data. In addition, data may be omitted in some cases. CLINICAL DECISIONS SHOULD BE BASED ON THE PRIMARY CLINICAL RECORDS. [employer] provides no warranty or guarantee of the accuracy or completeness of information in this document.
[2023-10-13 07:11] LABS: Basophils Absolute Auto 0.1 10^3/uL (0.0-0.1); Basophils Percent Auto 0.7 % (0.2-2.0); Eosinophils Absolute Auto 0.4 10^3/uL (0.0-0.7); Hematocrit 41.7 % (42.0-54.0); Hemoglobin 13.4 g/dL (14.0-18.0); Immature Granulocytes Abs Auto 0.04 10^3/uL (0.00-0.03); Immature Granulocytes Pct Auto 0.4 % (0.0-0.5); Lymphocytes Absolute Auto 1.6 10^3/uL (1.2-3.8); Lymphocytes Percent Auto 14.9 % (20.5-60.0); Mean Corpuscular HGB Conc 32.1 g/dL (29.9-35.2); Mean Corpuscular Hemoglobin 30.2 pg (25.9-34.0); Mean Corpuscular Volume 94.1 fL (80.0-94.0); Monocytes Absolute Auto 0.6 10^3/uL (0.3-0.8); Monocytes Percent Auto 5.7 % (1.7-12.0); Neutrophils Percent Auto 74.3 % (43.0-75.0); Platelet Count 220 10^3/uL (150-450); Red Blood Count 4.43 10^6/uL (4.70-6.10); Red Cell Distribution Width 13.3 % (11.0-15.0); White Blood Count 10.7 10^3/uL (4.0-11.0)
[2023-10-13 07:32] LABS: Alanine Aminotransferase 29 U/L (16-63); Albumin Globulin Ratio 0.7; Albumin Level 3.1 g/dL (3.4-5.0); Alkaline Phosphatase 103 U/L (46-116); Anion Gap 10.1; Aspartate Amino Transferase 26 U/L (15-37); BUN Creatinine Ratio 15.6; Bilirubin Total 0.5 mg/dL (0.2-1.0); Calcium 8.6 mg/dL (8.5-10.1); Carbon Dioxide 28.7 mmol/L (21.0-32.0); Chloride 106 mmol/L (98-107); Chol HDL Ratio 2.3; Cholesterol 129 mg/dL (<=200); Estimated GFR (African America 42 (>=60); Estimated GFR (Non-African Ame 35 (>=60); Globulin 4.2 g/dL; Glucose 188 mg/dL (74-106); HDL Cholesterol 55 mg/dL (40-60); LDL Cholesterol Calculated 58.8 mg/dL; Potassium 4.8 mmol/L (3.5-5.1); Sodium 140 mmol/L (136-145); Thyroid Stimulating Hormone 1.659 uIU/mL (0.358-3.740); Total Protein 7.3 g/dL (6.4-8.2); Triglycerides 76 mg/dL (<=150); VLDL CHOLESTEROL 15.2 mg/dL
[2023-10-13 07:34] LABS: Estimated Average Glucose 180 mg/dL; Glycohemoglobin A1C 7.9 % (4.5-6.2)
[2023-10-13 07:47] LABS: Free T4 1.19 ng/dL (0.76-1.46)
[2023-10-13 07:54] LABS: Prostate Specific Antigen Scrn 0.61 ng/mL (<=4.00)
== END 2023-10-13 06:52 | disposition home or self-care (01) ==
LOC: LAB 06:53
PROVIDERS: PCP Family Medicine; Visit Provider Family Medicine
DX: R53.83 Other fatigue (principal); I10 Essential (primary) hypertension; Z12.11 Encounter for screening for malignant neoplasm of colon; E78.5 Hyperlipidemia, unspecified; N40.0 Benign prostatic hyperplasia without lower urinary tract symptoms; E11.21 Type 2 diabetes mellitus with diabetic nephropathy
CPT/HCPCS: 36415; 80053; 80061; 83036; 84439; 84443; 85025; G0103

== ENCOUNTER 2023-10-17 09:49 | Outpatient (OUT) | payer OTHER, SELFPAY ==
--- OUTSIDE RECORDS SUMMARY | 2023-10-17 09:57 | XMS_ITS | CCD ---
Author Name Unknown Address [address] [place] [address] Organization [facility] Care Team Providers Care Counter Sales Representative Name Role Phone PHYSICIAN, DEFAULT Unavailable Unavailable PHYSICIAN, DEFAULT Unavailable Unavailable Jonnathan Amaya Attending Unavailable Iker Harrison Primary Care Unavailable Iker Harrison Unavailable Unavailable Unavailable Iker Harrison Primary Care Physician SHEKHAR ., DR DONG Primary Care Unavailable [...] Care Unavailable WESLEY SAENZ Attending Unavailable WESLEY SAENZ Admitting Unavailable WESLEY SAENZ Referring Unavailable WESLEY SAENZ Attending Unavailable MYCHAL HICKMAN Attending Unavailable GAVINO HUNTER Attending Unavailable WESLEY SAENZ Attending Unavailable SKYLER BABCOCK Attending Unavailable WESLEY SAENZ Referring Unavailable Unavailable Unavailable Unavailable Allergies Allergy Classification Reported Allergen(s) Allergy Type Date of Onset Reaction(s) Facility (4 sources) Azithromycin; Translations: [Zithromax TABS] Drug Allergy Lip swelling (finding) [place] [id number] Work Phone: (3 sources) Acetaminophen / oxyCODONE; Translations: [acetaminophen-ox ycodone] Drug Allergy 8 Hallucinations (finding) [facility] [place] (2 sources) Azithromycin; Translations: [Zithromax] Drug Allergy 4 [facility] Repository (3 sources) Azithromycin; Translations: [azithromycin] Drug Allergy 1 Swelling of Lip/Tongue/Throat [facility] (1 source) Acetaminophen / oxyCODONE; Translations: [OXYCODONE-ACETAM INOPHEN] Drug Allergy 8 [facility] Repository Medications Current Medications Medication Drug Class(es) [...] Ordered Start: 01-19-2021 take 1 tablet by luo th once daily digoxin 125 mcg (0.125 [...] 2 MG Oral Tablet as directed by [facility] Quantity: 0 Refills: 0 Ordered: 04-Sep-2021 [...] Onset: 01-17-2022 Episodic Other aftercare (1 source) care home (current) use of anticoagulants; 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] Onset: 11-18-2022 Episodic Other [...] 06-19-2022 Episodic Other aftercare (1 source) Other half-way (current) drug therapy; Translations: [OTH ALF CURRENT DRUG THERAPY] Onset: 06-19-2022 Episodic Other aftercare (1 source) technician terminal and repeater (current) use of insulin; Translations: [ALF CURRENT USE OF INSULIN] Onset: 06-19-2022 Episodic Other aftercare (1 source) care home (current) use of oral hypoglycemic drugs; Translations: [ALF USE ORAL HYPOGLYCEMIC DX] Onset: 06-19-2022 Episodic [...] Range Facility Office Visiton 10-07-2023 Follow-up visit [id number] Kim Garrison 1950 M Date Provider Department Center 10/07/2023 Ben-WESLYE SAENZ [facility]IRA [facility] Family History Problem Relation Age of Onset Coronary artery disease Mother Coronary artery disease Father Heart attack Father Family Status - Relation Status Age at Mother Father Level of Service:94294 IN OFFICE/OUTPATIENT ESTABLISHED HIGH MDM 40 MIN Normal [facility] HPon 08-06-2023 [facility] Electrophysiology Consult Note Reason for visit: Syncope/ [...] BNP, BNP EKG: (more content not included)... [facility] Orders Onlyon 07-30-2023 Orders Only [id number] Kim Garrison 1950 [facility] Provider Department Center 07/30/2023 [facility] Family History Problem Relation Age of Onset Coronary artery disease Mother Coronary artery disease Father Heart attack Father Family Status - Relation Status Age at Mother Father [facility] Telemedicineon 06-24-2023 Telemedicine [id number] Kim Garrison 1950 M [facility] Provider Department Center 06/24/2023 Ben-WESLEY SAENZ YADIRA [facility] Family History Problem Relation Age of Onset Coronary artery disease Mother Coronary artery disease Father Heart attack Father Family Status - Relation Status Age at Mother Father Level of Service:59756 IN PHYS/QHP TELEPHONE EVALUATION 11-20 MIN [facility] Office Visiton 06-20-2023 Follow-up visit [id number] Kim Garrison 1950 M Date Provider Department Center 06/20/2023 SKYLER TATUM YADIRA [facility] Family History Problem Relation Age of Onset Coronary artery disease Mother Coronary artery disease Father Heart attack Father Family Status - Relation Status Age at Mother Father Level of Service:24487 IN OFFICE/OUTPATIENT ESTABLISHED MOD MDM 30-39 MIN Reason for Visit and Comments: Follow-up [719840] [facility] Provider Letteron 04-14-2023 Provider Letter April 14, 2023 KIM [address]ARRISON [address] [place] [address] : 1950 Dear Kim , We have [...] [facility] [address], [place] [address] Normal [facility] Office Visiton 12-31-2022 Follow-up visit [id number] Kim Garrison 1950 [facility] Provider Department Center 12/31/2022 GAVINO REYNOLDS YADIRA [facility] Family History Problem Relation Age of Onset Coronary artery disease Mother Coronary artery disease Father Heart attack Father Family Status - Relation Status Age at Mother Father Level of Service:63443 IN OFFICE/OUTPATIENT ESTABLISHED MOD MDM 30-39 MIN Normal [facility] Telephoneon 12-12-2022 Telephone [id number] Kim Garrison 1950 [facility] Provider Department Center 12/12/2022 GAVINO REYNOLDS [facility]. Family History Problem Relation Age of Onset Coronary artery disease Mother Coronary artery disease Father Heart attack Father Family Status - Relation Status Age at Mother Father Normal [facility] PROF CHEM 8 (BAS METB)on Anion gap [Moles/Vol] 12.9 mmol/L Normal [facility] Comment on above: Performed By: #### C MREP #### [facility] Laboratory [address] [address] [address] Caroline Bell Calcium [Mass/Vol] 9.4 mg/dL Normal 8.5-10.1 [facility] Comment on above: Performed By: #### C MREP #### [facility] Laboratory [address] [address] [address] Caroline Bell Chloride [Moles/Vol] 106 mmol/L Normal 98-107 [facility] Comment on above: Performed By: #### C MREP #### [facility] [address] [address] [address] Caroline Bell CO2 [Moles/Vol] 28.0 mmol/L Normal 21.0-32.0 [facility] Comment on above: Performed By: #### C MREP #### [facility] [address] [address] [address] Caroline Bell Creatinine [Mass/Vol] 1.63 mg/dL Critically high 0.70-1.30 [facility] Comment on above: Performed By: #### C MREP #### [facility] [address] [address] [address] Caroline Bell EGFR-AF TONGAN 51 mL/min/1.73m2 Critically low >=60 [facility] Comment on above: Performed By: #### C MREP #### [facility] [address] [address] [address] Caroline Bell EGFR-NON AF TONGAN 42 mL/min/1.73m2 Critically low >=60 [facility] Comment on above: Performed By: #### C MREP #### [facility] [address] [address] [address] Caroline Bell Glucose [Mass/Vol] 79 mg/dL Normal 74-106 [facility] Comment on above: Performed By: #### C MREP #### [facility] [address] [place] [address] Dr. Caroline Bell Potassium [Moles/Vol] 4.9 mmol/L Normal 3.5-5.1 [facility] Comment on above: Performed By: #### C MREP #### [facility] [address] [address] [address] Caroline Bell Sodium [Moles/Vol] 142 mmol/L Normal 136-145 [facility] Comment on above: Performed By: #### C MREP #### [facility] [address] [address] [address] Caroline Bell Urea nitrogen [Mass/Vol] 32.0 mg/dL Critically high 7.0-18.0 [facility] Comment on above: Performed By: #### C MREP #### [facility] [address] [address] [address] Caroline Bell Urea nitrogen/Creatinine [Mass ratio] 19.6 mg/mg Normal [facility] Comment on above: Performed By: #### C MREP #### [facility] [address] [address] [address] Caroline Bell Office Visiton 11-13-2022 Follow-up visit [id number] Kim Garrison 1950 M Date Provider Department Center 11/13/2022 3848-MYCHAL HICKMAN [facility] Family History Problem Relation Age of Onset Coronary artery disease Mother Coronary artery disease Father Heart attack Father Family Status - Relation Status Age at Mother Father Level of Service:92443 IN OFFICE/OUTPATIENT ESTABLISHED MOD MDM 30-39 MIN Reason for Visit and Comments: Follow-up [505946] - 3 months Normal [facility] PROF CHEM 8 (BAS METB)on Anion gap [Moles/Vol] 14.7 mmol/L Normal [facility] Comment on above: Performed By: #### I NSULIN #### [facility] [address] [place] [address] Dr. Caroline Bell Calcium [Mass/Vol] 9.1 mg/dL Normal 8.5-10.1 [facility] Comment on above: Performed By: #### I NSULIN #### [facility] [address] [place] [address] Dr. Caroline Bell Chloride [Moles/Vol] 107 mmol/L Normal 98-107 [facility] Comment on above: Performed By: #### I NSULIN #### [facility] [address] [address] [address] Caroline Bell CO2 [Moles/Vol] 26.4 mmol/L Normal 21.0-32.0 [facility] Comment on above: Performed By: #### I NSULIN #### [facility] [address] [place] [address] Dr. Caroline Bell Creatinine [Mass/Vol] 1.82 mg/dL Critically high 0.70-1.30 [facility] Comment on above: Performed By: #### I NSULIN #### [facility] [address] [place] [address] Dr. Caroline Bell EGFR-AF TONGAN 45 mL/min/1.73m2 Critically low >=60 [facility] Comment on above: Performed By: #### I NSULIN #### [facility] [address] [address] [address] Caroline Bell EGFR-NON AF TONGAN 37 mL/min/1.73m2 Critically low >=60 [facility] Comment on above: Performed By: #### I NSULIN #### [facility] [address] [address] [address] Caroline Bell Glucose [Mass/Vol] 324 mg/dL Critically high 74-106 [facility] Comment on above: Performed By: #### I NSULIN #### [facility] [address] [place] [address] Dr. Caroline Bell Potassium [Moles/Vol] 5.1 mmol/L Normal 3.5-5.1 [facility] Comment on above: Performed By: #### I NSULIN #### [facility] [address] [place] [address] Dr. Caroline Bell Sodium [Moles/Vol] 143 mmol/L Normal 136-145 [facility] Comment on above: Performed By: #### I NSULIN #### [facility] [address] [place] [address] Dr. Caroline Bell Urea nitrogen [Mass/Vol] 30.0 mg/dL Critically high 7.0-18.0 [facility] Comment on above: Performed By: #### I NSULIN #### [facility] [address] [place] [address] Dr. Caroline Bell Urea nitrogen/Creatinine [Mass ratio] 16.5 mg/mg Normal [facility] Comment on above: Performed By: #### I NSULIN #### [facility] [address] [place], [place] [id number] Dr. Caroline Bell ECHOCARDIO M/2D COMPLETEon 0 09-27-2022 ECHOCARDIO M/2D COMPLETE Patient: KIM GARRISON Exam Date: 09/27/2022 : 1950 Gender:M Ordering : DR IKER HARRISON . Admission #: [id number] Family : GAVINO HUNTER [facility] Order #: [id number] CLICK HERE TO VIEW EXAM ECHOCARDIOGRAM REPORT [...] M.D. on 09/27/2022 at 15:06 Normal [facility] INSULINon 09-24-2022 Insulin 19.1 uIU/mL Normal 2.6-24.9 [facility] Comment on above: Performed By: #### I NSULIN #### [facility] [address] [place] [address] Dr. Caroline Bell BNPon 09-23-2022 Natriuretic peptide B (Bld) [Mass/Vol] 2963.0 pg/mL Critically high <=900.0 [facility] Comment on above: Performed By: #### V ITAD, PSASC #### [facility] [address] [place] [address] Dr. Caroline Bell CBC AUTO DIFFon 09-23-2022 BASO # 0.1 103/ul Normal 0.0-0.1 [facility] Comment on above: Performed By: #### P OCGLUC #### [facility] [address] [address] [address] Caroline Bell Basophils/100 WBC (Bld) 0.8 % Normal 0.2-2.0 [facility] Comment on above: Performed By: #### P OCGLUC #### [facility] [address] [place] [address] Dr. Caroline Bell EO # 0.3 103/ul Normal 0.0-0.7 [facility] Comment on above: Performed By: #### P OCGLUC #### [facility] [address] [place] [address] Dr. Caroline Bell Eosinophils/100 WBC (Bld) 4.2 % Normal 0.9-7.0 [facility] Comment on above: Performed By: #### P OCGLUC #### [facility] [address] [place] [address] Dr. Caroline Bell Erythrocyte distribution width (RBC) [Ratio] 14.1 % Normal 11.0-15.0 [facility] Comment on above: Performed By: #### P OCGLUC #### [facility] [address] [place] [address] Dr. Caroline Bell Hematocrit (Bld) [Volume fraction] 41.8 % Critically low 42.0-54.0 [facility] Comment on above: Performed By: #### P OCGLUC #### [facility] [address] [place] [address] Dr. Caroline Bell Hemoglobin (Bld) [Mass/Vol] 12.7 g/dL Critically low 14.0-18.0 [facility] Comment on above: Performed By: #### P OCGLUC #### [facility] [address] [place] [address] Dr. Caroline Bell IG # 0.03 10e3/ul Normal 0.00-0.03 [facility] Comment on above: Performed By: #### P OCGLUC #### [facility] [address] [place] [address] Dr. Caroline Bell IG % 0.4 % Normal 0.0-0.5 [facility] Comment on above: Performed By: #### P OCGLUC #### [facility] [address] [place] [address] Dr. Caroline Bell LYMPH # 1.8 103/ul Normal 1.2-3.8 [facility] Comment on above: Performed By: #### P OCGLUC #### [facility] [address] [place] [address] Dr. Caroline Bell Lymphocytes/100 WBC (Bld) 23.0 % Normal 20.5-60.0 [facility] Comment on above: Performed By: #### P OCGLUC #### [facility] [address] [place] [address] Dr. Caroline Bell MANUAL DIFF REQ NO Normal [facility] Comment on above: Performed By: #### P OCGLUC #### [facility] [address] [place] [address] Dr. Caroline Bell MCH (RBC) [Entitic mass] 29.3 pg Normal 25.9-34.0 [facility] Comment on above: Performed By: #### P OCGLUC #### [facility] [address] [place] [address] Dr. Caroline Bell MCHC (RBC) [Mass/Vol] 30.4 g/dL Normal 29.9-35.2 [facility] Comment on above: Performed By: #### P OCGLUC #### [facility] [address] [place] [address] Dr. Caroline Bell MCV (RBC) [Entitic vol] 96.3 fL Critically high 80.0-94.0 [facility] Comment on above: Performed By: #### P OCGLUC #### [facility] [address] [place] [address] Dr. Caroline Bell MONO # 0.5 103/ul Normal 0.3-0.8 [facility] Comment on above: Performed By: #### P OCGLUC #### [facility] [address] [place] [address] Dr. Caroline Bell Monocytes/100 WBC (Bld) 6.2 % Normal 1.7-12.0 [facility] Comment on above: Performed By: #### P OCGLUC #### [facility] [address] [place] [address] Dr. Caroline Bell NEUT # 5.2 103/ul Normal 1.4-6.5 [facility] Comment on above: Performed By: #### P OCGLUC #### [facility] [address] [place] [address] Dr. Caroline Bell Neutrophils/100 WBC (Bld) 65.4 % Normal 43.0-75.0 [facility] Comment on above: Performed By: #### P OCGLUC #### [facility] [address] [address] [address] Caroline Bell Platelet mean volume (Bld) [Entitic vol] 10.0 fL Normal 9.5-13.5 [facility] Comment on above: Performed By: #### P OCGLUC #### [facility] [address] [address] [address] Caroline Bell PLT 232 103/ul Normal 150-450 [facility] Comment on above: Performed By: #### P OCGLUC #### [facility] [address] [address] [address] Caroline Bell RBC 4.34 106/ul Critically low 4.70-6.10 [facility] Comment on above: Performed By: #### P OCGLUC #### [facility] [address] [address] [address] Caroline Bell WBC 7.9 103/ul Normal 4.0-11.0 [facility] Comment on above: Performed By: #### P OCGLUC #### [facility] [address] [place] [address] Dr. Caroline Bell FREE THYROXINE INDEX T7on FTI 2.05 Normal 1.30-4.50 [facility] Comment on above: Performed By: #### V ITAD, PSASC #### [facility] [address] [address] [address] Caroline Bell T3U 33.0 % Normal 33.0-40.0 [facility] Comment on above: Performed By: #### V ITAD, PSASC #### [facility] [address] [address] [address] Caroline Bell T4 [Mass/Vol] 6.20 ug/dL Normal 4.50-12.10 [facility] Comment on above: Performed By: #### V ITAD, PSASC #### [facility] [address] [address] [address] Caroline Bell GLYCOHEMOGLOBIN A1Con 2022 ADA RECOMMENDATION SEE BELOW Normal [facility] Comment on above: Result Comment: ADA RECOMMENDED LIMIT 4.0 - 6.0 ADA THERAPEUTIC TARGET < 7.0 ACTION SUGGESTED > 7.0 Performed By: #### P OCGLUC #### [facility] [address] [address] [address] Caroline Bell HbA1c (Bld) [Mass fraction] 7.2 % Critically high 4.5-6.2 [facility] Comment on above: Performed By: #### P OCGLUC #### [facility] [address] [address] [address] Caroline Bell LIPID PROFILEon 09-23-2022 CHOL-HDL RATIO NORM SEE BELOW Normal [facility] Comment on above: Result Comment: 3.3 - 4.4 LOW RISK 4.4 - 7.1 AVERAGE RISK 7.1 - 11.0 MODERATE RISK >11.0 HIGH RISK Performed By: #### V ITAD, PSASC #### [facility] [address] [address] [address] Caroline Bell Cholesterol [Mass/Vol] 132 mg/dL Normal <=200 [facility] Comment on above: Performed By: #### V ITAD, PSASC #### [facility] [address] [place] [address] Dr. Caroline Bell Cholesterol in HDL [Mass/Vol] 67 mg/dL Critically high 40-60 [facility] Comment on above: Performed By: #### V ITAD, PSASC #### [facility] [address] [address] [address] Caroline Bell Cholesterol in LDL [Mass/Vol] 54.2 mg/dL Normal [facility] Comment on above: Performed By: #### V ITAD, PSASC #### [facility] [address] [place] [address] Dr. Caroline Bell Cholesterol.total/Ch olesterol in HDL [Mass ratio] 2.0 {ratio} Normal [facility] Comment on above: Performed By: #### V ITAD, PSASC #### [facility] [address] [place] [address] Dr. Caroline Bell HDL NORMAL > or = 60 mg/dl - LO W CARDIOVASCULAR RISK <40 mg/dl - HIGH CARDIOVASCULAR RISK Normal [facility] Comment on above: Performed By: #### V ITJAVI, PSASC #### [facility] [address] [address] [address] Caroline Bell LDL CALC NORMAL SEE BELOW Normal [facility] Comment on above: Result Comment: <100 mg/dl OPTIMAL 100 - 129 mg/dl NEAR OR ABOVE OPTIMAL 130 - 159 mg/dl BORDERLINE HIGH 160 - 189 mg/dl HIGH >190 mg/dl VERY HIGH Performed By: #### V ITAD, PSASC #### [facility] [address] [address] [address] Caroline Bell Triglyceride [Mass/Vol] 54 mg/dL Normal <=150 [facility] Comment on above: Performed By: #### V ITJAVI, PSASC #### [facility] [address] [place] [address] Dr. Caroline Bell VLDL CALC 10.8 mg/dL Normal [facility] Comment on above: Performed By: #### V ITAD, PSASC #### [facility] [address] [place] [address] Dr. Caroline Bell PROF 14(COMP METB)on 023 Albumin [Mass/Vol] 3.8 g/dL Normal 3.4-5.0 [facility] Comment on above: Performed By: #### V ITAD, PSASC #### [facility] [address] [place] [address] Dr. Caroline Bell Albumin/Globulin [Mass ratio] 0.9 {ratio} Normal [facility] Comment on above: Performed By: #### V ITAD, PSASC #### [facility] [address] [place] [address] Dr. Caroline Bell ALP [Catalytic activity/Vol] 99 U/L Normal 46-116 [facility] Comment on above: Performed By: #### V ITAD, PSASC #### [facility] [address] [address] [address] Caroline Bell ALT [Catalytic activity/Vol] 25 U/L Normal 16-63 [facility] Comment on above: Performed By: #### V ITAD, PSASC #### [facility] [address] [place] [address] Dr. Caroline Bell Anion gap [Moles/Vol] 13.2 mmol/L Normal [facility] Comment on above: Performed By: #### V ITAD, PSASC #### [facility] [address] [place] [address] Dr. Caroline Bell AST [Catalytic activity/Vol] 18 U/L Normal 15-37 [facility] Comment on above: Performed By: #### V ITAD, PSASC #### [facility] [address] [place] [address] Dr. Caroline Bell Bilirubin [Mass/Vol] 0.5 mg/dL Normal 0.2-1.0 [facility] Comment on above: Performed By: #### V ITAD, PSASC #### [facility] [address] [place] [address] Dr. Caroline Bell Calcium [Mass/Vol] 9.3 mg/dL Normal 8.5-10.1 [facility] Comment on above: Performed By: #### V ITAD, PSASC #### [facility] [address] [place] [address] Dr. Caroline Bell Chloride [Moles/Vol] 106 mmol/L Normal 98-107 [facility] Comment on above: Performed By: #### V ITAD, PSASC #### [facility] [address] [place] [address] Dr. Caroline Bell CO2 [Moles/Vol] 26.1 mmol/L Normal 21.0-32.0 [facility] Comment on above: Performed By: #### V ITAD, PSASC #### [facility] [address] [place] [address] Dr. Caroline Bell Creatinine [Mass/Vol] 1.59 mg/dL Critically high 0.70-1.30 [facility] Comment on above: Performed By: #### V ITAD, PSASC #### [facility] [address] [place] [address] Dr. Caroline Bell EGFR-AF TONGAN 52 mL/min/1.73m2 Critically low >=60 [facility] Comment on above: Performed By: #### V ITAD, PSASC #### [facility] [address] [place] [address] Dr. Caroline Bell EGFR-NON AF TONGAN 43 mL/min/1.73m2 Critically low >=60 [facility] Comment on above: Performed By: #### V ITAD, PSASC #### [facility] [address] [place] [address] Dr. Caroline Bell Globulin (S) [Mass/Vol] 4.2 g/dL Normal [facility] Comment on above: Performed By: #### V ITAD, PSASC #### [facility] [address] [place] [address] Dr. Caroline Bell Glucose [Mass/Vol] 160 mg/dL Normal [facility] Comment on above: Performed By: #### V ITAD, PSASC #### [facility] [address] [place] [address] Dr. Caroline Bell Performed By: #### P OCGLUC #### [facility] [address] [place] [address] Dr. Caroline Bell Potassium [Moles/Vol] 5.3 mmol/L Critically high 3.5-5.1 [facility] Comment on above: Performed By: #### V ITAD, PSASC #### [facility] [address] [place] [address] Dr. Caroline Bell Protein [Mass/Vol] 8.0 g/dL Normal 6.4-8.2 [facility] Comment on above: Performed By: #### V ITAD, PSASC #### [facility] [address] [place] [address] Dr. Caroline Bell Sodium [Moles/Vol] 140 mmol/L Normal 136-145 [facility] Comment on above: Performed By: #### V ITAD, PSASC #### [facility] [address] [place] [address] Dr. Caroline Bell Urea nitrogen [Mass/Vol] 30.0 mg/dL Critically high 7.0-18.0 [facility] Comment on above: Performed By: #### V DIDI, PSASC #### [facility] [address] [place] [address] Dr. Caroline Bell Urea nitrogen/Creatinine [Mass ratio] 18.9 mg/mg Normal [facility] Comment on above: Performed By: #### Milan TOLBERT, PSASC #### [facility] [address] [place] [address] Dr. Caroline Bell TSHon 09-23-2022 TSH 1.076 uIU/mL Normal 0.358-3.740 [facility] Comment on above: Performed By: #### Milan TOLBERT, PSASC #### [facility] [address] [place] [address] Dr. Caroline Bell URIC ACID SERUMon 09-23-2022 Urate [Mass/Vol] 5.9 mg/dL Normal 3.5-7.2 [facility] Comment on above: Performed By: #### Milan TOLBERT, PSASC #### [facility] [address] [place] [address] Dr. Caroline Bell VITAMIN D 25 OHon 09-23-2022 VIT D 25-OH 32.7 ng/mL Normal [facility] Comment on above: Performed By: #### Milan TOLBERT, PSASC #### [facility] [address] [place] [address] Dr. Caroline Bell VIT D RANGES SEE BELOW Normal [facility] Comment on above: Result Comment: <20 ng/mL Vit D deficient 20 - <30 ng/mL Vit D insufficient 30 - 100 ng/mL Vit D sufficient >100 ng/mL Potential Toxicity Performed By: #### V DIDI, PSASC #### [facility] [address] [place] [address] Dr. Caroline Bell CBC AUTO DIFFon 06-18-2022 BASO # 0.1 103/ul Normal 0.0-0.1 [facility] Comment on above: Performed By: #### C BC #### [facility] [address] [place], [place] [id number] Dr. Caroline Bell Basophils/100 WBC (Bld) 0.4 % Normal 0.2-2.0 [facility] Comment on above: Performed By: #### C BC #### [facility] [address] [place] [address] Dr. Caroline Bell EO # 0.2 103/ul Normal 0.0-0.7 [facility] Comment on above: Performed By: #### C BC #### [facility] [address] [place] [address] Dr. Caroline Bell Eosinophils/100 WBC (Bld) 2.0 % Normal 0.9-7.0 [facility] Comment on above: Performed By: #### C BC #### [facility] [address] [place] [address] Dr. Caroline Bell Erythrocyte distribution width (RBC) [Ratio] 14.5 % Normal 11.0-15.0 [facility] Comment on above: Performed By: #### C BC #### [facility] [address] [place] [address] Dr. Caroline Bell Hematocrit (Bld) [Volume fraction] 35.6 % Critically low 42.0-54.0 [facility] Comment on above: Performed By: #### C BC #### [facility] [address] [place] [address] Dr. Caroline eBll Hemoglobin (Bld) [Mass/Vol] 11.4 g/dL Critically low 14.0-18.0 [facility] Comment on above: Performed By: #### C BC #### [facility] [address] [place] [address] Dr. Caroline Bell IG # 0.05 10e3/ul Critically high 0.00-0.03 [facility] Comment on above: Performed By: #### C BC #### [facility] [address] [place] [address] Dr. Caroline Bell IG % 0.4 % Normal 0.0-0.5 [facility] Comment on above: Performed By: #### C BC #### [facility] [address] [place] [address] Dr. Caroline Bell LYMPH # 1.4 103/ul Normal 1.2-3.8 [facility] Comment on above: Performed By: #### C BC #### [facility] [address] [place] [address] Dr. Caroline Bell Lymphocytes/100 WBC (Bld) 12.0 % Critically low 20.5-60.0 [facility] Comment on above: Performed By: #### C BC #### [facility] [address] [place] [address] Dr. Caroline Bell MANUAL DIFF REQ NO Normal [facility] Comment on above: Performed By: #### C BC #### [facility] [address] [place] [address] Dr. Caroline Bell MCH (RBC) [Entitic mass] 29.5 pg Normal 25.9-34.0 [facility] Comment on above: Performed By: #### C BC #### [facility] [address] [place] [address] Dr. Caroline Bell MCHC (RBC) [Mass/Vol] 32.0 g/dL Normal 29.9-35.2 [facility] Comment on above: Performed By: #### C BC #### [facility] [address] [place] [address] Dr. Caroline Bell MCV (RBC) [Entitic vol] 92.2 fL Normal 80.0-94.0 [facility] Comment on above: Performed By: #### C BC #### [facility] [address] [place] [address] Dr. Caroline Bell MONO # 0.7 103/ul Normal 0.3-0.8 [facility] Comment on above: Performed By: #### C BC #### [facility] [address] [place] [address] Dr. Caroline Bell Monocytes/100 WBC (Bld) 5.7 % Normal 1.7-12.0 [facility] Comment on above: Performed By: #### C BC #### [facility] [address] [place] [address] Dr. Caroline Bell NEUT # 9.6 103/ul Critically high 1.4-6.5 [facility] Comment on above: Performed By: #### C BC #### [facility] [address] [place] [address] Dr. Caroline Bell Neutrophils/100 WBC (Bld) 79.5 % Critically high 43.0-75.0 [facility] Comment on above: Performed By: #### C BC #### [facility] [address] [place] [address] Dr. Caroline Bell Platelet mean volume (Bld) [Entitic vol] 10.0 fL Normal 9.5-13.5 [facility] Comment on above: Performed By: #### C BC #### [facility] [address] [place] [address] Dr. Caroline Bell PLT 240 103/ul Normal 150-450 [facility] Comment on above: Performed By: #### C BC #### [facility] [address] [place] [address] Dr. Caroline Bell RBC 3.86 106/ul Critically low 4.70-6.10 [facility] Comment on above: Performed By: #### C BC #### [facility] [address] [place], [place] [id number] Dr. Caroline Bell WBC 12.0 103/ul Critically high 4.0-11.0 [facility] Comment on above: Performed By: #### C BC #### [facility] [address] [place], [place] [id number] Dr. Caroline Bell CT CSPINE WO CONon [...] MARLENI SAID Date: 2022-06-18 02:07 Normal [facility] CT HEAD WO CONon 06-18-2022 CT HEAD [...] MARLENI SAID Date: 2022-06-18 01:46 Normal [facility] ER URINE PROFILEon 2 Bilirubin Ql (U) Negative Normal NEGATIVE [facility] Comment on above: Performed By: #### V ITAD, PSASC #### [facility] [address] [place] [address] Dr. Caroline Bell Clarity (U) CLEAR Normal CLEAR [facility] Comment on above: Performed By: #### V ITAD, PSASC #### [facility] [address] [place] [address] Dr. Caroline Bell Color (U) LT. YELLOW Normal YELLOW [facility] Comment on above: Performed By: #### V ITAD, PSASC #### [facility] [address] [place] [address] Dr. Caroline Bell ERUAHD A micrscopic examination will be performed if indicated. Normal [facility] Comment on above: Performed By: #### V ITAD, PSASC #### [facility] [address] [place] [address] Dr. Caroline Bell Glucose Ql (U) Negative Normal NEGATIVE [facility] Comment on above: Performed By: #### V ITAD, PSASC #### [facility] [address] [place] [address] Dr. Caroline Bell Hemoglobin Ql (U) Negative Normal NEGATIVE [facility] Comment on above: Performed By: #### V ITAD, PSASC #### [facility] [address] [place] [address] Dr. Caroline Bell Ketones Ql (U) TRACE Abnormal NEGATIVE [facility] Comment on above: Performed By: #### V ITAD, PSASC #### [facility] [address] [place] [address] Dr. Caroline Bell LEUKOCYTES Negative Normal NEGATIVE [facility] Comment on above: Performed By: #### V ITAD, PSASC #### [facility] [address] [place] [address] Dr. Caroline Bell Nitrite Ql (U) Negative Normal NEGATIVE [facility] Comment on above: Performed By: #### V ITAD, PSASC #### [facility] [address] [place] [address] Dr. Caroline Bell pH (U) 6.0 [pH] Normal 5-9 [facility] Comment on above: Performed By: #### V ITAD, PSASC #### [facility] [address] [place] [address] Dr. Caroline Bell SPEC GRAVITY 1.020 Normal 1.005-<=1.025 [facility] Comment on above: Performed By: #### V ITAD, PSASC #### [facility] [address] [place] [address] Dr. Caroline Bell UA PROTEIN TRACE Normal NEGATIVE/ TRACE [facility] Comment on above: Performed By: #### V ITAD, PSASC #### [facility] [address] [place] [address] Dr. Caroline Bell UR MICRO IND NOT INDICATED Normal [facility] Comment on above: Performed By: #### V ITAD, PSASC #### [facility] [address] [place], [place] [id number] Dr. Caroline Bell Urobilinogen Qn (U) 0.2 {Sophia'U}/dL Normal 0.2 - 1. 0 [facility] Comment on above: Performed By: #### V ITJAVI, PSASC #### [facility] [address] [place] [address] Dr. Caroline Bell LACTATE/LACTIC ACIDon 2021 Lactate [Moles/Vol] 2.9 mmol/L Critically high 0.4-1.9 [facility] Comment on above: Performed By: #### I NSULIN #### [facility] [address] [place] [address] Dr. Caroline Bell Lactate [Moles/Vol] 1.9 mmol/L Normal 0.4-1.9 [facility] Comment on above: Performed By: #### P OCGLUC #### [facility] [address] [place] [address] Dr. Caroline Bell POINT OF CARE GLUCOSEon Glucose [Mass/Vol] 411 mg/dL Critically high 74-106 [facility] Comment on above: Performed By: #### P OCGLUC #### [facility] [address] [place] [address] Dr. Caroline Bell Glucose [Mass/Vol] 51 mg/dL Critically low 74-106 [facility] Comment on above: Performed By: #### P OCGLUC #### [facility] [address] [place] [address] Dr. Caroline Bell PROF 14(COMP METB)on 022 Albumin [Mass/Vol] 3.7 g/dL Normal 3.4-5.0 [facility] Comment on above: Performed By: #### V ITJAVI PSASC #### [facility] [address] [place] [address] Dr. Caroline Bell Albumin/Globulin [Mass ratio] 0.9 {ratio} Normal [facility] Comment on above: Performed By: #### V ITAD, PSASC #### [facility] [address] [place] [address] Dr. Caroline Bell ALP [Catalytic activity/Vol] 96 U/L Normal 46-116 [facility] Comment on above: Performed By: #### V ITJAVI, PSASC #### [facility] [address] [address] [address] Caroline Bell ALT [Catalytic activity/Vol] 16 U/L Normal 16-63 [facility] Comment on above: Performed By: #### V ITJAVI, PSASC #### [facility] [address] [address] [address] Caroline Bell Anion gap [Moles/Vol] 14.3 mmol/L Normal [facility] Comment on above: Performed By: #### V ITJAVI, PSASC #### [facility] [address] [place] [address] Dr. Caroline Bell AST [Catalytic activity/Vol] 15 U/L Normal 15-37 [facility] Comment on above: Performed By: #### V DIDI, PSASC #### [facility] [address] [place] [address] Dr. Caroline Bell Bilirubin [Mass/Vol] 0.3 mg/dL Normal 0.2-1.0 [facility] Comment on above: Performed By: #### V ITJAVI, PSASC #### [facility] [address] [place] [address] Dr. Caroline Bell Calcium [Mass/Vol] 8.9 mg/dL Normal 8.5-10.1 [facility] Comment on above: Performed By: #### V ITJAVI, PSASC #### [facility] [address] [place] [address] Dr. Caroline Bell Chloride [Moles/Vol] 109 mmol/L Critically high 98-107 [facility] Comment on above: Performed By: #### V ITJAVI, PSASC #### [facility] [address] [place] [address] Dr. Caroline Bell CO2 [Moles/Vol] 22.6 mmol/L Normal 21.0-32.0 [facility] Comment on above: Performed By: #### V ITAD, PSASC #### [facility] [address] [address] [address] Caroline Bell Creatinine [Mass/Vol] 1.89 mg/dL Critically high 0.70-1.30 [facility] Comment on above: Performed By: #### V ITAD, PSASC #### [facility] [address] [address] [address] Caroline Bell EGFR-AF TONGAN 43 mL/min/1.73m2 Critically low >=60 [facility] Comment on above: Performed By: #### V ITAD, PSASC #### [facility] [address] [address] [address] Caroline Bell EGFR-NON AF TONGAN 35 mL/min/1.73m2 Critically low >=60 [facility] Comment on above: Performed By: #### V ITAD, PSASC #### [facility] [address] [place] [address] Dr. Caroline Bell Globulin (S) [Mass/Vol] 4.0 g/dL Normal [facility] Comment on above: Performed By: #### V ITAD, PSASC #### [facility] [address] [address] [address] Caroline Bell Glucose [Mass/Vol] 48 mg/dL Critically low 74-106 [facility] Comment on above: Performed By: #### V ITAD, PSASC #### [facility] [address] [place] [address] Dr. Caroline Bell Potassium [Moles/Vol] 4.9 mmol/L Normal 3.5-5.1 [facility] Comment on above: Performed By: #### V ITAD, PSASC #### [facility] [address] [place] [address] Dr. Caroline Bell Protein [Mass/Vol] 7.7 g/dL Normal 6.4-8.2 [facility] Comment on above: Performed By: #### V ITAD, PSASC #### [facility] [address] [place] [address] Dr. Caroline Bell Sodium [Moles/Vol] 141 mmol/L Normal 136-145 [facility] Comment on above: Performed By: #### V ITAD, PSASC #### [facility] [address] [address] [address] Caroline Bell Urea nitrogen [Mass/Vol] 32.0 mg/dL Critically high 7.0-18.0 [facility] Comment on above: Performed By: #### V ITAD, PSASC #### [facility] [address] [address] [address] Caroline Bell Urea nitrogen/Creatinine [Mass ratio] 16.9 mg/mg Normal [facility] Comment on above: Performed By: #### V ITAD, PSASC #### [facility] [address] [address] [address] Caroline Bell TROPONIN, HIGH SENSITIVITYon 06-18-2022 HSTROP 10.8 pg/mL Normal 4.0-76.1 [facility] Comment on above: Result Comment: CUT- OFF POINTS HAVE BEEN ESTABLISHED BASED ON THE FOURTH UNIVERSAL DEFINITIONS OF MYOCARDIAL INFARCTION. THE UPPER REFERENCE LIMIT (URL) OF TROPONIN, DEFINED THE 99TH PERCENTILE OF cTnI DISTRIBUTION IN A REFERENCE POPULATION, HAS BEEN CONFIRMED THE DECISION THRESHOLD FOR NM DIAGNOSIS. Performed By: #### V ITAD, PSASC #### [facility] [address] [address] [address] Caroline Bell XR CHEST 1 Von [...] NICK CHAIREZ Date: 2022-06-18 01:49 Normal [facility] BNPon 06-11-2022 Natriuretic peptide B (Bld) [Mass/Vol] 5101.0 pg/mL Critically high <=900.0 [facility] Comment on above: Performed By: #### C MREP #### [facility] [address] [place] [address] Dr. Caroline Bell CBC AUTO DIFFon 06-11-2022 BASO # 0.0 103/ul Normal 0.0-0.1 [facility] Comment on above: Performed By: #### P OCGLUC #### [facility] [address] [place] [address] Dr. Caroline Bell Basophils/100 WBC (Bld) 0.4 % Normal 0.2-2.0 [facility] Comment on above: Performed By: #### P OCGLUC #### [facility] [address] [place] [address] Dr. Caroline Bell EO # 0.6 103/ul Normal 0.0-0.7 [facility] Comment on above: Performed By: #### P OCGLUC #### [facility] [address] [place] [address] Dr. Caroline Bell Eosinophils/100 WBC (Bld) 6.1 % Normal 0.9-7.0 [facility] Comment on above: Performed By: #### P OCGLUC #### [facility] [address] [place] [address] Dr. Caroline Bell Erythrocyte distribution width (RBC) [Ratio] 14.4 % Normal 11.0-15.0 [facility] Comment on above: Performed By: #### P OCGLUC #### [facility] [address] [place] [address] Dr. Caroline Bell Hematocrit (Bld) [Volume fraction] 27.5 % Critically low 42.0-54.0 [facility] Comment on above: Performed By: #### P OCGLUC #### [facility] [address] [place] [address] Dr. Caroline Bell Hemoglobin (Bld) [Mass/Vol] 8.7 g/dL Critically low 14.0-18.0 [facility] Comment on above: Performed By: #### P OCGLUC #### [facility] [address] [place] [address] Dr. Caroline Bell IG # 0.01 10e3/ul Normal 0.00-0.03 [facility] Comment on above: Performed By: #### P OCGLUC #### [facility] [address] [place] [address] Dr. Caroline Bell IG % 0.1 % Normal 0.0-0.5 [facility] Comment on above: Performed By: #### P OCGLUC #### [facility] [address] [place] [address] Dr. Caroline Bell LYMPH # 2.0 103/ul Normal 1.2-3.8 [facility] Comment on above: Performed By: #### P OCGLUC #### [facility] [address] [place] [address] Dr. Caroline Bell Lymphocytes/100 WBC (Bld) 20.9 % Normal 20.5-60.0 [facility] Comment on above: Performed By: #### P OCGLUC #### [facility] [address] [place] [address] Dr. Caroline Bell MANUAL DIFF REQ NO Normal [facility] Comment on above: Performed By: #### P OCGLUC #### [facility] [address] [place] [address] Dr. Caroline Bell MCH (RBC) [Entitic mass] 29.6 pg Normal 25.9-34.0 [facility] Comment on above: Performed By: #### P OCGLUC #### [facility] [address] [place] [address] Dr. Caroline Bell MCHC (RBC) [Mass/Vol] 31.6 g/dL Normal 29.9-35.2 [facility] Comment on above: Performed By: #### P OCGLUC #### [facility] [address] [place] [address] Dr. Caroline Bell MCV (RBC) [Entitic vol] 93.5 fL Normal 80.0-94.0 [facility] Comment on above: Performed By: #### P OCGLUC #### [facility] [address] [place] [address] Dr. Caroline Bell MONO # 0.7 103/ul Normal 0.3-0.8 [facility] Comment on above: Performed By: #### P OCGLUC #### [facility] [address] [place] [address] Dr. Caroline Bell Monocytes/100 WBC (Bld) 7.7 % Normal 1.7-12.0 [facility] Comment on above: Performed By: #### P OCGLUC #### [facility] [address] [place] [address] Dr. Caroline Bell NEUT # 6.2 103/ul Normal 1.4-6.5 [facility] Comment on above: Performed By: #### P OCGLUC #### [facility] [address] [place] [address] Dr. Caroline Bell Neutrophils/100 WBC (Bld) 64.8 % Normal 43.0-75.0 [facility] Comment on above: Performed By: #### P OCGLUC #### [facility] [address] [place] [address] Dr. Caroline Bell Platelet mean volume (Bld) [Entitic vol] 10.1 fL Normal 9.5-13.5 [facility] Comment on above: Performed By: #### P OCGLUC #### [facility] [address] [place] [address] Dr. Caroline Bell PLT 212 103/ul Normal 150-450 [facility] Comment on above: Performed By: #### P OCGLUC #### [facility] [address] [place] [address] Dr. Caroline Bell RBC 2.94 106/ul Critically low 4.70-6.10 [facility] Comment on above: Performed By: #### P OCGLUC #### [facility] [address] [place] [address] Dr. Caroline Bell WBC 9.6 103/ul Normal 4.0-11.0 [facility] Comment on above: Performed By: #### P OCGLUC #### [facility] [address] [place] [address] Dr. Caroline Bell ECHOCARDIO M/2D COMPLETEon 1 ECHOCARDIO M/2D COMPLETE Patient: KIM GARRISON Exam Date: 06/11/2022 : 1950 Gender:M Ordering : [facility] Admission #: [id number] Family : IKER HARRISON . Order #: [id number] CLICK HERE TO VIEW EXAM ECHOCARDIOGRAM REPORT [...] 3.76 cm Aortic Valve AoV Area (Peak Twaanda): 3.25 cm2, 3.25 cm2 AoV Area (VTI): [...] Tapia M.D. on 06/19/2022 at 10:32 Normal [facility] POINT OF CARE GLUCOSEon 10- Glucose [Mass/Vol] 136 mg/dL Critically high 74-106 [facility] Comment on above: Performed By: #### C MREP #### [facility] [address] [address] [address] Caroline Bell Glucose [Mass/Vol] 98 mg/dL Normal 74-106 [facility] Comment on above: Performed By: #### P OCGLUC #### [facility] [address] [address] [address] Caroline Bell PROF CHEM 8 (BAS METB)on Anion gap [Moles/Vol] 13.9 mmol/L Normal [facility] Comment on above: Performed By: #### C MREP #### [facility] [address] [place] [address] Dr. Caroline Bell Calcium [Mass/Vol] 7.9 mg/dL Critically low 8.5-10.1 Th e [facility] Comment on above: Performed By: #### C MREP #### [facility] [address] [address] [address] Caroline Bell Chloride [Moles/Vol] 110 mmol/L Critically high 98-107 [facility] Comment on above: Performed By: #### C MREP #### [facility] [address] [place] [address] Dr. Caroline Bell CO2 [Moles/Vol] 22.2 mmol/L Normal 21.0-32.0 [facility] Comment on above: Performed By: #### C MREP #### [facility] [address] [place] [address] Dr. Caroline Bell Creatinine [Mass/Vol] 1.64 mg/dL Critically high 0.70-1.30 [facility] Comment on above: Performed By: #### C MREP #### [facility] [address] [place] [address] Dr. Caroline Bell EGFR-AF TONGAN 50 mL/min/1.73m2 Critically low >=60 [facility] Comment on above: Performed By: #### C MREP #### [facility] [address] [place] [address] Dr. Caroline Bell EGFR-NON AF TONGAN 42 mL/min/1.73m2 Critically low >=60 [facility] Comment on above: Performed By: #### C MREP #### [facility] [address] [place] [address] Dr. Caroline Bell Glucose [Mass/Vol] 94 mg/dL Normal 74-106 [facility] Comment on above: Performed By: #### C MREP #### [facility] [address] [place] [address] Dr. Caroline Bell Potassium [Moles/Vol] 5.1 mmol/L Normal 3.5-5.1 [facility] Comment on above: Performed By: #### C MREP #### [facility] [address] [address] [address] Caroline Bell Sodium [Moles/Vol] 141 mmol/L Normal 136-145 [facility] Comment on above: Performed By: #### C MREP #### [facility] [address] [address] [address] Caroline Bell Urea nitrogen [Mass/Vol] 30.0 mg/dL Critically high 7.0-18.0 [facility] Comment on above: Performed By: #### C MREP #### [facility] [address] [place] [address] Dr. Caroline Bell Urea nitrogen/Creatinine [Mass ratio] 18.3 mg/mg Normal [facility] Comment on above: Performed By: #### C MREP #### [facility] [address] [address] [address] Caroline Bell PROTIMEon 06-11-2022 INR Coag (PPP) [Relative time] 2.40 {INR} Normal [facility] Comment on above: Performed By: #### V ITJAVI, PSASC #### [facility] [address] [place] [address] Dr. Caroline Bell INR GUIDELINES SEE BELOW Normal [facility] Comment on above: Result Comment: HANG RED INR: 2.0 - 3.0 CONDITIONS NOT LISTED BELOW 2.5 - 3.5 FOR PROSTHETIC HEART VALVE REPLACEMENT 2.5 - 3.5 RECURRENT THROMBOSIS Performed By: #### V ITJAVI, PSASC #### [facility] [address] [place] [address] Dr. Caroline Bell PT Coag (PPP) [Time] 24.5 s Critically high 9.0-11.6 [facility] Comment on above: Performed By: #### V ITJAVI, PSASC #### [facility] [address] [place] [address] Dr. Caroline Bell BNPon 06-10-2022 Natriuretic peptide B (Bld) [Mass/Vol] 7103.0 pg/mL Critically high <=900.0 [facility] Comment on above: Performed By: #### C MREP #### [facility] [address] [place] [address] Dr. Caroline Bell Natriuretic peptide B (Bld) [Mass/Vol] 6731.0 pg/mL Critically high <=900.0 [facility] Comment on above: Performed By: #### I NSULIN #### [facility] [address] [place] [address] Dr. Caroline Bell CARDIAC ANGEL 3-6on 2 CK [Catalytic activity/Vol] 47 U/L Normal 39-308 [facility] Comment on above: Performed By: #### C MREP #### [facility] [address] [place] [address] Dr. Caroline Bell CK.MB [Mass/Vol] 1.59 ng/mL Normal <=3.60 [facility] Comment on above: Performed By: #### C MREP #### [facility] [address] [place] [address] Dr. Caroline Bell HSTROP 10.5 pg/mL Normal 4.0-76.1 [facility] Comment on above: Result Comment: CUT- OFF POINTS HAVE BEEN ESTABLISHED BASED ON THE FOURTH UNIVERSAL DEFINITIONS OF MYOCARDIAL INFARCTION. THE UPPER REFERENCE LIMIT (URL) OF TROPONIN, DEFINED THE 99TH PERCENTILE OF cTnI DISTRIBUTION IN A REFERENCE POPULATION, HAS BEEN CONFIRMED THE DECISION THRESHOLD FOR NM DIAGNOSIS. Performed By: #### C MREP #### [facility] [address] [place] [address] Dr. Caroline Bell CK [Catalytic activity/Vol] 58 U/L Normal 39-308 [facility] Comment on above: Performed By: #### C MREP #### [facility] [address] [place] [address] Dr. Caroline Bell CK.MB [Mass/Vol] 1.90 ng/mL Normal <=3.60 [facility] Comment on above: Performed By: #### C MREP #### [facility] [address] [place] [address] Dr. Caroline Bell HSTROP 10.8 pg/mL Normal 4.0-76.1 [facility] Comment on above: Result Comment: CUT- OFF POINTS HAVE BEEN ESTABLISHED BASED ON THE FOURTH UNIVERSAL DEFINITIONS OF MYOCARDIAL INFARCTION. THE UPPER REFERENCE LIMIT (URL) OF TROPONIN, DEFINED THE 99TH PERCENTILE OF cTnI DISTRIBUTION IN A REFERENCE POPULATION, HAS BEEN CONFIRMED THE DECISION THRESHOLD FOR NM DIAGNOSIS. Performed By: #### C MREP #### [facility] [address] [address] [address] Caroline Bell CARDIAC ANGEL ADMITon 022 CK [Catalytic activity/Vol] 62 U/L Normal 39-308 [facility] Comment on above: Performed By: #### B STEAM BOX OPERATORTIFFANIE, BMP #### [facility] [address] [address] [address] Caroline Bell CK.MB [Mass/Vol] 1.70 ng/mL Normal <=3.60 [facility] Comment on above: Performed By: #### B STEAM BOX OPERATORJILLDM, BMP #### [facility] [address] [address] [address] Caroline Bell HSTROP 10.7 pg/mL Normal 4.0-76.1 [facility] Comment on above: Result Comment: CUT- OFF POINTS HAVE BEEN ESTABLISHED BASED ON THE FOURTH UNIVERSAL DEFINITIONS OF MYOCARDIAL INFARCTION. THE UPPER REFERENCE LIMIT (URL) OF TROPONIN, DEFINED THE 99TH PERCENTILE OF cTnI DISTRIBUTION IN A REFERENCE POPULATION, HAS BEEN CONFIRMED THE DECISION THRESHOLD FOR NM DIAGNOSIS. Performed By: #### B STEAM BOX OPERATOR, JILLDM, BMP #### [facility] [address] [address] [address] Caroline Bell ADITHYA 159 ng/mL Critically high 16-96 [facility] Comment on above: Performed By: #### B STEAM BOX OPERATOR, JILLDM, BMP #### [facility] [address] [address] [address] Caroline Bell CBC AUTO DIFFon 06-10-2022 BASO # 0.0 103/ul Normal 0.0-0.1 [facility] Comment on above: Performed By: #### V ITAD, PSASC #### [facility] [address] [place] [address] Dr. Caroline Bell Basophils/100 WBC (Bld) 0.3 % Normal 0.2-2.0 [facility] Comment on above: Performed By: #### V ITAD, PSASC #### [facility] [address] [place] [address] Dr. Caroline Bell EO # 0.4 103/ul Normal 0.0-0.7 [facility] Comment on above: Performed By: #### V ITAD, PSASC #### [facility] [address] [place] [address] Dr. Caroline Bell Eosinophils/100 WBC (Bld) 3.0 % Normal 0.9-7.0 [facility] Comment on above: Performed By: #### V ITAD, PSASC #### [facility] [address] [place] [address] Dr. Caroline Bell Erythrocyte distribution width (RBC) [Ratio] 14.4 % Normal 11.0-15.0 [facility] Comment on above: Performed By: #### V ITAD, PSASC #### [facility] [address] [place] [address] Dr. Caroline Bell Hematocrit (Bld) [Volume fraction] 32.5 % Critically low 42.0-54.0 [facility] Comment on above: Performed By: #### V ITAD, PSASC #### [facility] [address] [place] [address] Dr. Caroline Bell Hemoglobin (Bld) [Mass/Vol] 10.4 g/dL Critically low 14.0-18.0 [facility] Comment on above: Performed By: #### V ITAD, PSASC #### [facility] [address] [place] [address] Dr. Caroline Bell IG # 0.04 10e3/ul Critically high 0.00-0.03 [facility] Comment on above: Performed By: #### V ITAD, PSASC #### [facility] [address] [place] [address] Dr. Caroline Bell IG % 0.3 % Normal 0.0-0.5 [facility] Comment on above: Performed By: #### V ITAD, PSASC #### [facility] [address] [place] [address] Dr. Caroline Bell LYMPH # 1.6 103/ul Normal 1.2-3.8 [facility] Comment on above: Performed By: #### V ITAD, PSASC #### [facility] [address] [place] [address] Dr. Caroline Bell Lymphocytes/100 WBC (Bld) 13.4 % Critically low 20.5-60.0 [facility] Comment on above: Performed By: #### V ITAD, PSASC #### [facility] [address] [place] [address] Dr. Caroline Bell MANUAL DIFF REQ NO Normal [facility] Comment on above: Performed By: #### V ITAD, PSASC #### [facility] [address] [place] [address] Dr. Caroline Bell MCH (RBC) [Entitic mass] 30.3 pg Normal 25.9-34.0 [facility] Comment on above: Performed By: #### V ITAD, PSASC #### [facility] [address] [place] [address] Dr. Caroline Bell MCHC (RBC) [Mass/Vol] 32.0 g/dL Normal 29.9-35.2 [facility] Comment on above: Performed By: #### V ITAD, PSASC #### [facility] [address] [place] [address] Dr. Caroline Bell MCV (RBC) [Entitic vol] 94.8 fL Critically high 80.0-94.0 [facility] Comment on above: Performed By: #### V ITAD, PSASC #### [facility] [address] [place] [address] Dr. Caroline Bell MONO # 0.8 103/ul Normal 0.3-0.8 [facility] Comment on above: Performed By: #### V ITAD, PSASC #### [facility] [address] [place] [address] Dr. Caroline Bell Monocytes/100 WBC (Bld) 6.6 % Normal 1.7-12.0 [facility] Comment on above: Performed By: #### V ITAD, PSASC #### [facility] [address] [place] [address] Dr. Caroline Bell NEUT # 9.0 103/ul Critically high 1.4-6.5 [facility] Comment on above: Performed By: #### V ITAD, PSASC #### [facility] [address] [place] [address] Dr. Caroline Bell Neutrophils/100 WBC (Bld) 76.4 % Critically high 43.0-75.0 [facility] Comment on above: Performed By: #### V ITAD, PSASC #### [facility] [address] [place] [address] Dr. Caroline Bell Platelet mean volume (Bld) [Entitic vol] 10.2 fL Normal 9.5-13.5 [facility] Comment on above: Performed By: #### V ITAD, PSASC #### [facility] [address] [place] [address] Dr. Caroline Bell PLT 240 103/ul Normal 150-450 [facility] Comment on above: Performed By: #### V ITAD, PSASC #### [facility] [address] [place] [address] Dr. Caroline Bell RBC 3.43 106/ul Critically low 4.70-6.10 [facility] Comment on above: Performed By: #### V ITAD, PSASC #### [facility] [address] [place] [address] Dr. Caroline Bell WBC 11.7 103/ul Critically high 4.0-11.0 [facility] Comment on above: Performed By: #### V ITAD, PSASC #### [facility] [address] [place] [address] Dr. Caroline Bell BASO # 0.1 103/ul Normal 0.0-0.1 [facility] Comment on above: Performed By: #### V ITAD, PSASC #### [facility] [address] [place] [address] Dr. Caroline Bell Basophils/100 WBC (Bld) 0.5 % Normal 0.2-2.0 [facility] Comment on above: Performed By: #### V ITAD, PSASC #### [facility] [address] [place] [address] Dr. Caroline Bell EO # 0.6 103/ul Normal 0.0-0.7 [facility] Comment on above: Performed By: #### V ITAD, PSASC #### [facility] [address] [place] [address] Dr. Caroline Bell Eosinophils/100 WBC (Bld) 4.2 % Normal 0.9-7.0 [facility] Comment on above: Performed By: #### V ITAD, PSASC #### [facility] [address] [place] [address] Dr. Caroline Bell Erythrocyte distribution width (RBC) [Ratio] 14.5 % Normal 11.0-15.0 [facility] Comment on above: Performed By: #### V ITAD, PSASC #### [facility] [address] [place] [address] Dr. Caroline Bell Hematocrit (Bld) [Volume fraction] 35.3 % Critically low 42.0-54.0 [facility] Comment on above: Performed By: #### V ITAD, PSASC #### [facility] [address] [place] [address] Dr. Caroline Bell Hemoglobin (Bld) [Mass/Vol] 11.2 g/dL Critically low 14.0-18.0 [facility] Comment on above: Performed By: #### V ITAD, PSASC #### [facility] [address] [place] [address] Dr. Caroline Bell IG # 0.05 10e3/ul Critically high 0.00-0.03 [facility] Comment on above: Performed By: #### V ITAD, PSASC #### [facility] [address] [place] [address] Dr. Caroline Bell IG % 0.4 % Normal 0.0-0.5 [facility] Comment on above: Performed By: #### V ITJAVI, PSASC #### [facility] [address] [place] [address] Dr. Caroline Bell LYMPH # 1.8 103/ul Normal 1.2-3.8 [facility] Comment on above: Performed By: #### V ITJAVI, PSASC #### [facility] [address] [place] [address] Dr. Caroline Bell Lymphocytes/100 WBC (Bld) 13.1 % Critically low 20.5-60.0 [facility] Comment on above: Performed By: #### V ITJAVI, PSASC #### [facility] [address] [place] [address] Dr. Caroline Bell MANUAL DIFF REQ NO Normal [facility] Comment on above: Performed By: #### V ITJAVI, PSASC #### [facility] [address] [place] [address] Dr. Caroline Bell MCH (RBC) [Entitic mass] 30.3 pg Normal 25.9-34.0 [facility] Comment on above: Performed By: #### V ITJAVI, PSASC #### [facility] [address] [place] [address] Dr. Caroline Bell MCHC (RBC) [Mass/Vol] 31.7 g/dL Normal 29.9-35.2 [facility] Comment on above: Performed By: #### V ITAD, PSASC #### [facility] [address] [place] [address] Dr. Caroline Bell MCV (RBC) [Entitic vol] 95.4 fL Critically high 80.0-94.0 [facility] Comment on above: Performed By: #### V ITAD, PSASC #### [facility] [address] [place] [address] Dr. Caroline Bell MONO # 0.8 103/ul Normal 0.3-0.8 [facility] Comment on above: Performed By: #### V ITAD, PSASC #### [facility] [address] [address] [address] Caroline Bell Monocytes/100 WBC (Bld) 5.6 % Normal 1.7-12.0 [facility] [facility] Comment on above: Performed By: #### V ITAD, PSASC #### [facility] [address] [place] [address] Dr. Caroline Bell NEUT # 10.6 103/ul Critically high 1.4-6.5 [facility] Comment on above: Performed By: #### V ITAD, PSASC #### [facility] [address] [place] [address] Dr. Caroline Bell Neutrophils/100 WBC (Bld) 76.2 % Critically high 43.0-75.0 The [facility] Comment on above: Performed By: #### V ITAD, PSASC #### [facility] [address] [place] [address] Dr. Caroline Bell Platelet mean volume (Bld) [Entitic vol] 10.0 fL Normal 9.5-13.5 The [facility] Comment on above: Performed By: #### V ITAD, PSASC #### [facility] [address] [place] [address] Dr. Caroline Bell PLT 252 103/ul Normal 150-450 [facility] Comment on above: Performed By: #### V ITAD, PSASC #### [facility] [address] [place] [address] Dr. Caroline Bell RBC 3.70 106/ul Critically low 4.70-6.10 [facility] Comment on above: Performed By: #### V ITAD, PSASC #### [facility] [address] [place] [address] Dr. Caroline Bell WBC 13.9 103/ul Critically high 4.0-11.0 [facility] Comment on above: Performed By: #### V ITAD, PSASC #### [facility] [address] [place] [address] ABD/PELVIS WO CONon [...] by: FERNANDO GONZÁLES Date: 2022-06-10 00:47 Normal [facility] CT CHEST WO CONon 06-10-2022 CT CHEST [...] FERNANDO GONZÁLES Date: 2022-06-10 00:35 Normal The [facility] CT CSPINE WO CONon 2 CT CSPINE [...] MARI SO Date: 2022-06-10 00:15 Normal The [facility] CT HEAD WO CONon 06-10-2022 CT HEAD [...] AMEYA TANNER Date: 2022-06-10 00:22 Normal The [facility] CT LSPINE WO CONon 2 CT LSPINE [...] MARI SO Date: 2022-06-10 00:20 Normal [facility] Covid-19 PCR (CVDTBH)on 05-19 SARS-CoV-2 (COVID-19) RNA DANILO+probe Ql (Unsp spec) Not detected Normal NOT DETECTED [facility] Comment on above: Result Comment: When diagnostic [...] for this test is supported by the [place] of [employer] and Human Service's declaration that [...] Performed By: #### V ITAD, PSASC #### [facility] [address] [place] [address] Dr. Caroline Bell D-DIMERon 06-10-2022 D-DIMER 5.83 mg/L FEU Critically high <=0.59 The [facility] Comment on above: Performed By: #### I NSULIN #### [facility] [address] [place] [address] Dr. Caroline Bell D-DIMER COMMENTS SEE BELOW Normal [facility] Comment on above: Result Comment: Incr [...] hospitalization. Performed By: #### I NSULIN #### [facility] [address] [place] [address] Dr. Caroline Bell DIGOXINon 06-10-2022 DIG 1.1 ng/mL Normal 0.9-2.0 [facility] Comment on above: Performed By: #### C MREP #### [facility] [address] [place] [address] Dr. Caroline Bell DIG 1.5 ng/mL Normal 0.9-2.0 [facility] Comment on above: Performed By: #### V ITAD, PSASC #### [facility] [address] [address] [address] Caroline RITTER URINE PROFILEon 2 Bilirubin Ql (U) Negative Normal NEGATIVE [facility] Comment on above: Performed By: #### P OCGLUC #### [facility] [address] [address] [address] Caroline Bell Clarity (U) CLEAR Normal CLEAR [facility] Comment on above: Performed By: #### P OCGLUC #### [facility] [address] [place] [address] Dr. Caroline Bell Color (U) LT. YELLOW Normal YELLOW [facility] Comment on above: Performed By: #### P OCGLUC #### [facility] [address] [place] [address] Dr. Caroline TAYLOR A micrscopic examination will be performed if indicated. Normal [facility] Comment on above: Performed By: #### P OCGLUC #### [facility] [address] [address] [address] Caroline Bell Glucose Ql (U) Negative Normal NEGATIVE [facility] Comment on above: Performed By: #### P OCGLUC #### [facility] [address] [place] [address] Dr. Caroline Bell Hemoglobin Ql (U) Negative Normal NEGATIVE [facility] Comment on above: Performed By: #### P OCGLUC #### [facility] [address] [place] [address] Dr. Caroline Bell Ketones Ql (U) Negative Normal NEGATIVE [facility] Comment on above: Performed By: #### P OCGLUC #### [facility] [address] [address] [address] Caroline Bell LEUKOCYTES Negative Normal NEGATIVE [facility] Comment on above: Performed By: #### P OCGLUC #### [facility] [address] [place] [address] Dr. Caroline Bell Nitrite Ql (U) Negative Normal NEGATIVE [facility] Comment on above: Performed By: #### P OCGLUC #### [facility] [address] [address] [address] Caroline Bell pH (U) 6.0 [pH] Normal 5-9 [facility] Comment on above: Performed By: #### P OCGLUC #### [facility] [address] [address] [address] Caroline Bell SPEC GRAVITY 1.025 Normal 1.005-<=1.025 [facility] Comment on above: Performed By: #### P OCGLUC #### [facility] [address] [address] [address] Caroline Bell UA PROTEIN Negative Normal NEGATIVE/ TRACE [facility] Comment on above: Performed By: #### P OCGLUC #### [facility] [address] [place] [address] Dr. Caroline Bell UR MICRO IND NOT INDICATED Normal [facility] Comment on above: Performed By: #### P OCGLUC #### [facility] [address] [address] [address] Caroline Bell Urobilinogen Qn (U) 0.2 {Sophia'U}/dL Normal 0.2 - 1. 0 [facility] Comment on above: Performed By: #### P OCGLUC #### [facility] [address] [address] [address] Caroline Bell POINT OF CARE GLUCOSEon 2 Glucose [Mass/Vol] 121 mg/dL Critically high 74-106 [facility] Comment on above: Performed By: #### P OCGLUC #### [facility] [address] [address] [address] Caroline Bell Glucose [Mass/Vol] 121 mg/dL Critically high [facility]106 [facility] Comment on above: Performed By: #### V ITAD, PSASC #### [facility] [address] [address] [address] Caroline Bell Glucose [Mass/Vol] 120 mg/dL Critically high [facility]106 [facility] Comment on above: Performed By: #### V ITAD, PSASC #### [facility] [address] [address] [address] Caroline Bell Glucose [Mass/Vol] 131 mg/dL Critically high [address] [place] [address] Comment on above: Performed By: #### V ITAD, PSASC #### [facility] [address] [address] [address] Caroline Bell Glucose [Mass/Vol] 496 mg/dL Critically high [address] [place] [address] Comment on above: Performed By: #### P OCGLUC #### [facility] [address] [address] [address] Caroline Bell Glucose [Mass/Vol] 316 mg/dL Critically high [address] [place] [address] Comment on above: Performed By: #### V ITAD, PSASC #### [facility] [address] [address] [address] Caroline Bell Glucose [Mass/Vol] 240 mg/dL Critically high [address] [place] [address] Comment on above: Performed By: #### P OCGLUC #### [facility] [address] [address] [address] Caroline Bell Glucose [Mass/Vol] 169 mg/dL Critically high [address] [place] [address] Comment on above: Performed By: #### C MREP #### [facility] [address] [address] [address] Caroline Bell Glucose [Mass/Vol] 117 mg/dL Critically high [address] [place] [address] Comment on above: Performed By: #### I NSULIN #### [facility] [address] [address] [address] Caroline Bell PROF 14(COMP METB)on 022 Albumin [Mass/Vol] 3.0 g/dL Critically low 3.4-5.0 [facility] Comment on above: Performed By: #### C MREP #### [facility] [address] [address] [address] Caroline Bell Albumin/Globulin [Mass ratio] 0.9 {ratio} Normal [facility] Comment on above: Performed By: #### C MREP #### [facility] [address] [address] [address] Caroline Bell ALP [Catalytic activity/Vol] 80 U/L Normal 46-116 [facility] Comment on above: Performed By: #### C MREP #### [facility] [address] [address] [address] Caroline Bell ALT [Catalytic activity/Vol] 13 U/L Critically low 16-63 [facility] Comment on above: Performed By: #### C MREP #### [facility] [address] [address] [address] Caroline Bell Anion gap [Moles/Vol] 8.0 mmol/L Normal [facility] Comment on above: Performed By: #### C MREP #### [facility] [address] [address] [address] Caroline Bell AST [Catalytic activity/Vol] 13 U/L Critically low 15-37 [facility] Comment on above: Performed By: #### C MREP #### [facility] [address] [address] [address] Caroline Bell Bilirubin [Mass/Vol] 0.3 mg/dL Normal 0.2-1.0 [facility] Comment on above: Performed By: #### C MREP #### [facility] [address] [address] [address] Caroline Bell Calcium [Mass/Vol] 8.4 mg/dL Critically low 8.5-10.1 [facility] Comment on above: Performed By: #### C MREP #### [facility] [address] [address] [address] Caroline Bell Chloride [Moles/Vol] 108 mmol/L Critically high 98-107 [facility] Comment on above: Performed By: #### C MREP #### [facility] [address] [address] [address] Caroline Bell CO2 [Moles/Vol] 28.1 mmol/L Normal 21.0-32.0 [facility] Comment on above: Performed By: #### C MREP #### [facility] [address] [address] [address] Caroline Bell Creatinine [Mass/Vol] 1.69 mg/dL Critically high 0.70-1.30 [facility] Comment on above: Performed By: #### C MREP #### [facility] [address] [address] [address] Caroline Bell EGFR-AF TONGAN 49 mL/min/1.73m2 Critically low >=60 [facility] Comment on above: Performed By: #### C MREP #### [facility] [address] [address] [address] Caroline Bell EGFR-NON AF TONGAN 40 mL/min/1.73m2 Critically low >=60 [facility] Comment on above: Performed By: #### C MREP #### [facility] [address] [address] [address] Caroline Bell Globulin (S) [Mass/Vol] 3.3 g/dL Normal [facility] Comment on above: Performed By: #### C MREP #### [facility] [address] [address] [address] Caroline Bell Glucose [Mass/Vol] 220 mg/dL Critically high 74-106 [facility] Comment on above: Performed By: #### C MREP #### [facility] [address] [address] [address] Caroline Bell Potassium [Moles/Vol] 5.1 mmol/L Normal 3.5-5.1 [facility] Comment on above: Performed By: #### C MREP #### [facility] [address] [address] [address] Caroline Bell Protein [Mass/Vol] 6.3 g/dL Critically low 6.4-8.2 [facility] Comment on above: Performed By: #### C MREP #### [facility] [address] [address] [address] Caroline Bell Sodium [Moles/Vol] 139 mmol/L Normal 136-145 [facility] Comment on above: Performed By: #### C MREP #### [facility] [address] [address] [address] Caroline Bell Urea nitrogen [Mass/Vol] 32.0 mg/dL Critically high 7.0-18.0 [facility] Comment on above: Performed By: #### C MREP #### [facility] [address] [address] [address] Caroline Bell Urea nitrogen/Creatinine [Mass ratio] 18.9 mg/mg Normal [facility] Comment on above: Performed By: #### C MREP #### [facility] [address] [place] [address] Dr. Caroline Bell PROF CHEM 8 (BAS METB)on Anion gap [Moles/Vol] 14.2 mmol/L Normal [facility] Comment on above: Performed By: #### I NSULIN #### [facility] [address] [place] [address] Dr. Caroline Bell Calcium [Mass/Vol] 8.8 mg/dL Normal 8.5-10.1 [facility] Comment on above: Performed By: #### I NSULIN #### [facility] [address] [place] [address] Dr. Caroline Bell Chloride [Moles/Vol] 110 mmol/L Critically high 98-107 [facility] Comment on above: Performed By: #### I NSULIN #### [facility] [address] [place] [address] Dr. Caroline Bell CO2 [Moles/Vol] 21.7 mmol/L Normal 21.0-32.0 [facility] Comment on above: Performed By: #### I NSULIN #### [facility] [address] [place] [address] Dr. Caroline Bell Creatinine [Mass/Vol] 2.07 mg/dL Critically high 0.70-1.30 [facility] Comment on above: Performed By: #### I NSULIN #### [facility] [address] [place] [address] Dr. Caroline Bell EGFR-AF TONGAN 39 mL/min/1.73m2 Critically low >=60 [facility] Comment on above: Performed By: #### I NSULIN #### [facility] [address] [address] [address] Caroline Bell EGFR-NON AF TONGAN 32 mL/min/1.73m2 Critically low >=60 [facility] Comment on above: Performed By: #### I NSULIN #### [facility] [address] [address] [address] Caroline Bell Glucose [Mass/Vol] 126 mg/dL Critically high 74-106 [facility] Comment on above: Performed By: #### I NSULIN #### [facility] [address] [place] [address] Dr. Caroline Bell Potassium [Moles/Vol] 4.9 mmol/L Normal 3.5-5.1 [facility] Comment on above: Performed By: #### I NSULIN #### [facility] [address] [place] [address] Dr. Caroline Bell Sodium [Moles/Vol] 141 mmol/L Normal 136-145 [facility] Comment on above: Performed By: #### I NSULIN #### [facility] [address] [place] [address] Dr. Caroline Bell Urea nitrogen [Mass/Vol] 34.0 mg/dL Critically high 7.0-18.0 [facility] Comment on above: Performed By: #### I NSULIN #### [facility] [address] [place] [address] Dr. Caroline Bell Urea nitrogen/Creatinine [Mass ratio] 16.4 mg/mg Normal [facility] Comment on above: Performed By: #### I NSULIN #### [facility] [address] [address] [address] Caroline Bell PROTIMEon 06-10-2022 INR Coag (PPP) [Relative time] 1.43 {INR} Normal [facility] Comment on above: Performed By: #### I NSULIN #### [facility] [address] [place] [address] Dr. Caroline Bell INR GUIDELINES SEE BELOW Normal The [facility] Comment on above: Result Comment: HANG RED INR: 2.0 - 3.0 CONDITIONS NOT LISTED BELOW 2.5 - 3.5 FOR PROSTHETIC HEART VALVE REPLACEMENT 2.5 - 3.5 RECURRENT THROMBOSIS Performed By: #### I NSULIN #### [facility] [address] [place] [address] Dr. Caroline Bell PT Coag (PPP) [Time] 15.1 s Critically high 9.0-11.6 [facility] Comment on above: Performed By: #### I NSULIN #### [facility] [address] [place] [address] Dr. Caroline Bell PTTon 06-10-2022 aPTT Coag (Bld) [Time] 28.2 s Normal 22.3-36.2 [facility] Comment on above: Performed By: #### I NSULIN #### [facility] [address] [place] [address] Dr. Caroline Bell T4on 06-10-2022 T4 [Mass/Vol] 4.40 ug/dL Critically low 4.50-12.10 [facility] Comment on above: Performed By: #### V ITAD, PSASC #### [facility] [address] [place] [address] Dr. Caroline Bell TSHon 06-10-2022 TSH 0.911 uIU/mL Normal 0.358-3.740 [facility] Comment on above: Performed By: #### P OCGLUC #### [facility] [address] [place] [address] HEAD WO CONon [...] TONY IYER Date: 2022-05-07 07:15 Normal The [facility] CBC AUTO DIFFon 05-02-2022 BASO # 0.1 103/ul Normal 0.0-0.1 [facility] Comment on above: Performed By: #### V ITAD, PSASC #### [facility] [address] [place] [address] Dr. Caroline Bell Basophils/100 WBC (Bld) 0.5 % Normal 0.2-2.0 [facility] Comment on above: Performed By: #### V ITAD, PSASC #### [facility] [address] [place] [address] Dr. Caroline Bell EO # 0.6 103/ul Normal 0.0-0.7 [facility] Comment on above: Performed By: #### V ITAD, PSASC #### [facility] [address] [address] [address] Caroline Bell Eosinophils/100 WBC (Bld) 4.6 % Normal 0.9-7.0 [facility] Comment on above: Performed By: #### V ITAD, PSASC #### [facility] [address] [place] [address] Dr. Caroline Bell Erythrocyte distribution width (RBC) [Ratio] 14.4 % Normal 11.0-15.0 [facility] Comment on above: Performed By: #### V ITAD, PSASC #### [facility] [address] [place] [address] Dr. Caroline Bell Hematocrit (Bld) [Volume fraction] 34.7 % Critically low 42.0-54.0 [facility] Comment on above: Performed By: #### V ITAD, PSASC #### [facility] [address] [place] [address] Dr. Caroline Bell Hemoglobin (Bld) [Mass/Vol] 11.1 g/dL Critically low 14.0-18.0 [facility] Comment on above: Performed By: #### V ITJAVI, PSASC #### [facility] [address] [place] [address] Dr. Caroline Bell IG # 0.05 10e3/ul Critically high 0.00-0.03 [facility] Comment on above: Performed By: #### V ITJAVI, PSASC #### [facility] [address] [address] [address] Caroline Bell IG % 0.4 % Normal 0.0-0.5 [facility] Comment on above: Performed By: #### V ITJAVI, PSASC #### [facility] [address] [place] [address] Dr. Caroline Bell LYMPH # 1.8 103/ul Normal 1.2-3.8 [facility] Comment on above: Performed By: #### V ITJAVI, PSASC #### [facility] [address] [place] [address] Dr. Caroline Bell Lymphocytes/100 WBC (Bld) 13.4 % Critically low 20.5-60.0 [facility] Comment on above: Performed By: #### V ITJAVI, PSASC #### [facility] [address] [place] [address] Dr. Caroline Bell MANUAL DIFF REQ NO Normal [facility] Comment on above: Performed By: #### V ITJAVI, PSASC #### [facility] [address] [place] [address] Dr. Caroline Bell MCH (RBC) [Entitic mass] 29.7 pg Normal 25.9-34.0 [facility] Comment on above: Performed By: #### V ITAD, PSASC #### [facility] [address] [place] [address] Dr. Caroline Bell MCHC (RBC) [Mass/Vol] 32.0 g/dL Normal 29.9-35.2 [facility] Comment on above: Performed By: #### V ITAD, PSASC #### [facility] [address] [place] [address] Dr. Caroline Bell MCV (RBC) [Entitic vol] 92.8 fL Normal 80.0-94.0 [facility] Comment on above: Performed By: #### V ITAD, PSASC #### [facility] [address] [place] [address] Dr. Caroline Bell MONO # 0.9 103/ul Critically high 0.3-0.8 [facility] Comment on above: Performed By: #### V ITAD, PSASC #### [facility] [address] [place] [address] Dr. Caroline Bell Monocytes/100 WBC (Bld) 6.8 % Normal 1.7-12.0 [facility] Comment on above: Performed By: #### V ITAD, PSASC #### [facility] [address] [place] [address] Dr. Caroline Bell NEUT # 9.7 103/ul Critically high 1.4-6.5 [facility] Comment on above: Performed By: #### V ITAD, PSASC #### [facility] [facility] [address] [place] [address] Dr. Caroline Bell Neutrophils/100 WBC (Bld) 74.3 % Normal 43.0-75.0 The [facility] Comment on above: Performed By: #### V ITAD, PSASC #### [facility] [address] [place] [address] Dr. Caroline Bell Platelet mean volume (Bld) [Entitic vol] 10.0 fL Normal 9.5-13.5 The [facility] Comment on above: Performed By: #### V ITAD, PSASC #### [facility] [address] [place] [address] Dr. Caroline Bell PLT 296 103/ul Normal 150-450 The [facility] Comment on above: Performed By: #### V ITAD, PSASC #### [facility] [address] [place] [address] Dr. Caroline Bell RBC 3.74 106/ul Critically low 4.70-6.10 The [facility] Comment on above: Performed By: #### V ITJAVI, PSASC #### [facility] [address] [place], [place] [address] Dr. Caroline Bell WBC 13.1 103/ul Critically high 4.0-11.0 The [facility] Comment on above: Performed By: #### V ITJAVI, PSASC #### [facility] [address] [place], [place] [address] CSPINE WO CONon [...] TONY IYER Date: 2022-05-02 15:14 Normal The [facility] CT HEAD WO CONon 05-02-2022 CT HEAD [...] TONY IYER Date: 2022-05-02 15:08 Normal The [facility] PROTIMEon 05-02-2022 INR Coag (PPP) [Relative time] 3.49 {INR} Normal The [facility] Comment on above: Performed By: #### P OCGLUC #### [facility] [address] [place] [address] Dr. Caroline Bell INR GUIDELINES SEE BELOW Normal The [facility] Comment on above: Result Comment: HANG RED INR: 2.0 - 3.0 CONDITIONS NOT LISTED BELOW 2.5 - 3.5 FOR PROSTHETIC HEART VALVE REPLACEMENT 2.5 - 3.5 RECURRENT THROMBOSIS Performed By: #### P OCGLUC #### [facility] [address] [place] [address] Dr. Caroline Bell PT Coag (PPP) [Time] 34.7 s Critically high 9.0-11.6 The [facility] Comment on above: Performed By: #### P OCGLUC #### [facility] [address] [place] [address] Dr. Caroline Bell PTTon 05-02-2022 aPTT Coag (Bld) [Time] 47.0 s Critically high 22.3-36.2 The [facility] Comment on above: Performed By: #### P OCGLUC #### [facility] [address] [place] [address] Dr. Caroline Bell Covid-19 PCR ([facility])on 01-16 SARS-CoV-2 (COVID-19) RNA DANILO+probe Ql (Unsp spec) Not detected Normal NOT DETECTED The [facility] Comment on above: Result Comment: This test is not yet approved or cleared by the [place] FDA. When there are no FDA-approved or cleared tests available, and other criteria are met, FDA can make tests available under an emergency access mechanism called an Emergency Use Authorization (EUA). The EUA for this test is supported by the Passport Support Manager of Health and Human Service's (HHS's) declaration [...] SARS-CoV-2. Performed By: #### C MREP #### [facility] [address] [place] [address] [id number] [address] Caroline Bell SYMPTOMATIC COVID-19 ANTIGEN on 01-28-2022 EUA Statement SEE BELOW Normal [facility] Comment on above: Result Comment: This [...] sooner. Performed By: #### I NSULIN #### [facility] [address] [place] [address] [id number] [address] Caroline Bell SARS-CoV-2 (COVID-19) RNA DANILO+probe Ql (Unsp spec) Negative Normal NEGATIVE [facility] Comment on above: Performed By: #### I NSULIN #### [facility] [address] [place] [address] [id number] [address] Caroline Bell Office Visit (Cardiology)on 09-04-2021 [...] Sodium 2 MG Oral Tabletas directed by [facility] Allergies Medication Zithromax TABS Adverse Reaction; [...] Recorded: 04Sep2021 08:49AM Heart Rate60, L Radial Enmqydaf684, RUE, Sitting Iieogmsxv20, RUE, Sitting Height5 ft 8 in Fksjkr701 lb BMI Tcmboicrdm30.84 kg/m2 BSA Calculated2.11 Tobacco Useb) No Fall Screeninga) No falls within the last year Signatures Electronically signed by : Nick Razo DO; Sep 04 2021 9:01AM EST (Author) Normal [facility] Tobacco Screening.on 022 Fall risk assessment a) No falls within the last year [facility] 250 DO Work Phone: Tobacco use status CP b) No -[facility] 250 DO Work Phone: [facility] CARDIAC STRESS/REST INJE CTIONon 01-25-2021 [facility] CARDIAC STRESS/REST INJECTION Patient Name: KIM AGRRISON STUDY: MYOCARDIAL PERFUSION STRESS TEST WITH LEXISCAN Performing facility: [facility], [address] [place] [address] St, [address], [place] [address] [facility] Provider: Nick Razo DO, [facility] PCP: Dr. Arlene Harrison Supervising provider: Bao Sheehan MD, [facility] INDICATION: Chest Pain; HISTORY: Gender: M; Age: 70 y/o ; Height: 172.72 cm; Weight: 98.9005746 kg. High Cholesterol; Diabetes; Previous NM; HTN; Quit smoking 38 years ago. COMPARISON: Previous nuclear testing completed at [facility]. ACCESSION NUMBER(S): [id number]; [id number]; [id number] ORDERING CLINICIAN: NICK RAZO TECHNIQUE: ONE DAY [...] changes. Electronically signed by: BAO SHEEHAN MD [facility] Vital Signs Date Time Vital Sign Value Performing Clinician Faci [facility]arsenio 12-19-2021 15:14-0400 Diastolic blood pressure 70 mm[Hg] Nick NILL [facility] [place] 12-19-2021 15:14-0400 Heart rate 68 /min Nick NILL [facility] [place] 12-19-2021 15:14-0400 Respiratory rate 16 /min Nick NILL [facility] [place] 12-19-2021 15:14-0400 Systolic blood pressure 116 mm[Hg] Nick NILL [facility] [place] 09-04-2021 08:49-0500 Body height 172.72 cm Iker M Hoy Work Phone: [facility] 250 DO Work Phone: 09-04-2021 08:49-0500 Body mass index (BMI) [Ratio] 32.84 kg/m2 Iker M Hoy Work Phone: [facility] 250 DO Work Phone: 09-04-2021 08:49-0500 Body surface area Derived from formula 2.11 m2 Iker M Hoy Work Phone: [facility] 250 DO Work Phone: 09-04-2021 08:49-0500 Body weight 97.98 kg Iker M Hoy Work Phone: [facility] 250 DO Work Phone: 09-04-2021 08:49-0500 Diastolic blood pressure 66 mm[Hg] Iker M Hoy Work Phone: [facility] 250 DO Work Phone: 09-04-2021 08:49-0500 Heart rate 60 /min Iker M Hoy Work Phone: [facility] 250 DO Work Phone: 09-04-2021 08:49-0500 Systolic blood pressure 138 mm[Hg] Iker Harrison Work Phone: [facility] 250 DO Work Phone: Encounters Encounter Date Encounter Type Care Provider Facility Start: 10-07-2023 End: 10-07-2023 ambulatory [facility] Start: 08-06-2023 ambulatory [facility] Start: 08-06-2023 End: 08-06-2023 ambulatory [facility] Start: 07-03-2023 ambulatory Willie Galloway acility:[facility] Start: 06-24-2023 End: 06-24-2023 ambulatory [facility] Start: 06-20-2023 End: 06-20-2023 ambulatory SKYLER [facility] Start: 04-14-2023 End: 04-15-2023 ambulatory Caleb JONES Facility:[facility] Start: 04-14-2023 End: 04-14-2023 Patient encounter procedure Caleb JONES [facility] Start: 12-31-2022 End: 12-31-2022 ambulatory GAVINO ROMANCKER [facility] Start: 12-11-2022 End: 12-12-2022 ambulatory GAVINO HUNTER [...] visit 25 minutes Iker Harrison Work [facility]: [facility] Work Phone: Start: 06-01-2021 Rx Renewal Iker Harrison Work Phone: [facility] [place] Work Phone: Start: 10-14-2018 Patient encounter procedure Jonnathan Amaya Facility:[id number] Start: 03-05-2017 End: 03-06-2017 Ambulatory DEFAULT PHYSICIAN Facility:[facility] Procedures Date Procedure Procedure Detail Performing Clinician Start: 11-13-2022 Follow-up visit Follow-up PRIYANKKEZIAFatou NELSONSEMAJMERRICK Start: 09-23-[address] KVNG HARRISON . Comment on above: Performed By: #### V ITAD, PSASC #### [facility] [address] [place] [address] Dr. Caroline Bell Start: 01-15-[address] KVNG HARRISON . Comment on above: Performed By: #### P SAD #### [facility] [address] [place] [address] Dr. Caroline Bell Start: 10-08-2016 Cystoscopy Nick [...] Nick Razo, Status: Pen, Time: 10:45 AM [facility] 250 DO Work Phone: Start: 09-04-2021 FUV, Provider: Nick Razo, Status: Pen, Time: 8:45 AM [facility], Provider: Nick Razo, Status: Pen, Time: 8:45 AM [place] [address] [place] Work Phone: Immunizations Immunization Date Immunization Notes Care Provider Fa cili 07-16-2021 Pfizer-BioNTech COVI D-19 Vacc 30 MCG/0.3ML Intramuscular Suspension Iker Harrison Work Phone: [place] [address] DO Work Phone: 05-09-2021 influenza, injectable,quadrivalent, preservative free, pediatric Iker Harrison Work Phone: [place] [address] DO Work Phone: 02-04-2021 diphtheria, tetanus toxoids and pertussis vaccine Iker Harrison Work Phone: [place] [address] DO Work Phone: 11-14-2020 Pfizer-BioNTech COVI D-19 Vacc 30 MCG/0.3ML Intramuscular Suspension Iker Harrison Work Phone: [place] [address] DO Work Phone: 10-23-2020 Pfizer-BioNTech COVI D-19 Vacc 30 MCG/0.3ML Intramuscular Suspension Ikre Harrison Work Phone: [facility] 250 DO Work Phone: 10-16-2020 SARS-CoV-2 (COVID-19 ) mRNA BNT-162b2 vax Nick SIN [facility] [place] 05-24-2020 Seasonal trivalent influenza vaccine, adjuvanted, preservative free [facility] M [facility]oy [facility] Work Phone: 04-18-2020 influenza virus vacc ine, unspecified formulation Iker M Hoy Work Phone: [facility] 250 DO Work Phone: 05-18-2019 influenza virus vacc ine, unspecified formulation Iker M Hoy Work Phone: [facility] 250 DO Work Phone: 03-25-2019 Seasonal trivalent influenza vaccine, adjuvanted, preservative free Iker M Hoy Work Phone: [facility] 250 DO Work Phone: 09-22-2018 influenza, seasonal, injectable Iker M Hoy Work Phone: [facility] 250 DO Work Phone: 09-22-2018 pneumococcal polysaccharide vaccine, 23 valent Iker M Hoy Work Phone: [facility] 250 DO Work Phone: 07-18-2018 influenza virus vacc ine, unspecified formulation Iker M Hoy Work Phone: [facility] 250 DO Work Phone: 04-05-2018 influenza, injectabl e, quadrivalent, preservative free Iker M Hoy Work Phone: [facility] 250 DO Work Phone: 07-07-2017 pneumococcal conjuga te vaccine, 13 valent Iker M Hoy Work Phone: [facility] 250 DO Work Phone: 03-26-2017 Seasonal trivalent influenza vaccine, adjuvanted, preservative free Iker M Hoy Work Phone: [facility] DO Work Phone: 08-18-2016 pneumococcal polysaccharide vaccine, 23 valent Iker Harrison Work Phone: [facility] DO Work Phone: Payers Date Payer Category Payer Self-pay [id number] 1958 Private Health Insurance [id number] 1958 Self-pay [id number] 1950 Unknown [id number] 2.16. [id number] 1950 Unknown [id number] 2.16.84 0.1.468569.3.579.2.593 1950 Unknown [id number] 2.16.84 0.1.215198.3.579.2.593 1951 Unknown [id number] 2.16.84 0.1.837230.3.579.2.593 1951 Unknown [id number] 2.16.84 0.1.697771.3.579.2.593 1951 Unknown [id number] 2.16.84 0.1.386101.3.579.2.593 1951 Unknown [id number] 2.16.84 0.1.243583.3.579.2.593 1951 Unknown [id number] 2.16.84 0.1.147155.3.579.2.593 1951 Unknown [id number] 2.16.84 0.1.872456.3.579.2.593 1951 Unknown [id number] 2.16.84 0.1.451974.3.579.2.593 1951 Unknown [id number] 2.16.84 0.1.282148.3.579.2.593 1951 Unknown [id number] 2.16.84 0.1.013465.3.579.2.593 1951 Unknown [id number] 2.16.84 0.1.867206.3.579.2.593 1951 Unknown [id number] 2.16.84 0.1.328747.3.579.2.593 1951 Unknown [id number] 2.16.84 0.1.026470.3.579.2.593 1951 Unknown [id number] 2.16.84 0.1.528296.3.579.2.593 1951 Unknown [id number] 2.16.84 0.1.918564.3.579.2.593 1951 Unknown [id number] 2.16.84 0.1.280165.3.579.2.593 1951 Unknown [id number] 2.16.84 0.1.081890.3.579.2.593 1951 Unknown [id number] 2.16.84 0.1.539435.3.579.2.593 1951 Unknown [id number] 2.16.84 0.1.284265.3.579.2.593 1951 Unknown [id number] 2.16.84 0.1.558236.3.579.2.593 1951 Unknown [id number] 2.16.84 0.1.823607.3.579.2.593 1951 Unknown [id number] 2.16.8 40.1.784393.3.579.2.727 Unknown Unknown [id number] Unknown [id number] 2.16.8 40.1.538058.3.579.2.531 Social History Date Type Detail Facility Tobacco smoking stat [facility] Unknown if ever smoked [facility] Start: 1950 Sex Assigned At Male F [facility] No alcohol use No alcohol use [facility] 250 DO Work Phone: Comment on above: QUIT CIGS 1982; 1 CUP COFFEE DAILY, DIET SODA 1 BOTTLE DAILY; Start: 12-19-2021 End: 01-18-2022 Tobacco smoking status Ex-smoker (finding) [facility] [place] Tobacco smoking status Never Gener [facility] [place] Sex Assigned At Male Gen[facility] [place] Goals Date Patient Goal Desired Activity /State [...] Value Ventricular Rate 46 Atrial Rate 46 IN Interval 248 QRS DURATION 104 QT Interval 514 QTC CALCULATION(BAZETT) 449 P Mccarr 25 R-Mccarr -37 T Wave Mccarr 16 Impression Sinus bradycardia with 1st degree [...] and vascular complications (more content not included)... [facility] 08-06-2023 Note LOOP IMPLANT PROCEDU RE NOTE DATE OF PROCEDURE: 08/06/2023 PERFORMING PHYSICIAN: Dr. Wesley Saenz MANUFACTURING MANAGER: MCKAY INDICATIONS FOR PROCEDURE: 1. Syncope CONSENT: [...] the sternum on the left using the [place] Mark43 tool. The loop recorder was then injected [...] the incision. Wesley Saenz MD Cardiac Electrophysiology. [facility] 08-06-2023 Note DIRECT CARDIOVERSION PROCEDURE NOTE Date: [...] consider ablation. Wesley Saenz MD Cardiac Electrophysiology [facility] 08-06-2023 Note Patient: Kim correa Procedure Information Date/Time: 08/06/23 1200 Procedure: Cardioversion Location: [facility] MANAGER CATH LAB HOLDING ROOM / [facility] (Cath) Providers: Wesley Saenz MD Clinical information reviewed: Allergies Meds Physical Exam Airway Mallampati: II TM distance: >3 FB Neck ROM: full Cardiovascular Dental Pulmonary Abdominal Anesthesia Plan ASA 2 CSE Anesthetic plan and risks discussed with patient. Use of blood products discussed with patient who. Additional Equipment Requests [facility] 08-06-2023 Note This report has been cancelled. [facility] 06-24-2023 Note [place] Electrophysiology Consult Note Reason for visit: Syncope/ Afib Date of Telehealth Visit: 06/24/23 The patient was notified that using 3rd libertarian telecommunication application (e.g., MakersKit) is not HIPPA compliant and may carry some privacy risks. Yes The visit was conducted [id number] with the use of audio and video [...] @CATH@ Diagnostic Imaging: (more content not included)... [facility] 06-20-2023 Note [place] Electrophysiology Consult Note Reason [...] 06/20/2023 A-fib controlled VR 12/2022 per elsa senior construction project manager 12/31/2022 After last visit, another 30 day [...] as a new patient while admitted to [facility] for c/o syncope. He was found to [...] and Conjunctivae: n (more content not included)... [facility] 12-31-2022 Note Cardiovascular Medic ine [place] [facility] SUBJECTIVE No chief complaint on file. [...] as a new patient while admitted to [facility] for c/o syncope. He was found to [...] Patient Active Problem List Diagnosis Atrial fibrillation ([facility]) Benign prostatic hyperplasia with urinary obstruction Chronic obstructive pulmonary disease ([facility]) Dependent edema Depressive disorder Diabetes mellitus ([facility]) Family history of malignant neoplasm of prostate History of migraine History of myocardial infarction Hyperkalemia Hyperlipidemia Hypertension Injury of head technician terminal and repeater current use of anticoagulant therapy Microscopic hematuria Nocturia Posttraumatic stress disorder Stage 3 chronic kidney disease ([facility]) Acute bronchitis Acute embolism and thrombosis of unspecified deep veins of right lower extremity ([facility]) Allergic rhinitis Arthritis Chronic congestive heart failure ([facility]) Chronic pulmonary embolism ([facility]) Concussion with loss of consciousness <= 30 min Coronary artery disease Deep vein phlebitis and thrombophlebitis of lower extremity, unspecified laterality ([facility]) Fatigue Diabetic renal disease ([facility]) Fracture of coccyx, initial encounter for closed fracture ([facility]) Gagan filter in place Impacted cerumen Iron deficiency Multiple injuries Major depressive disorder, single episode, unspecified Overweight Pain in limb Peripheral vertigo Right upper quadrant pain Superficial thrombophlebitis Tobacco user Benign prostatic hyperplasia Edema Hypercholesterolemia Chronic kidney disease, stage III (moderate) ([facility]) Post-traumatic stress disorder Past Medical History: Diagnosis Date A-fib ([facility]) Bradycardia Diabetes mellitus ([facility]) HLD (hyperlipidemia) Hypertension Syncope Family [...] and atraumatic. Ri (more content not included)... [facility] 12-31-2022 Note Patient here for [facility] Faveous event monitor. Had labs 12/11. Says his afib bothers him at times. Denies chest pain and bleeding on Eliquis. Review of Systems Cardiovascular: Positive for dyspnea on exertion, irregular heartbeat, leg swelling and palpitations. Musculoskeletal: Positive for myalgias. All other systems reviewed and are negative. [facility] 11-13-2022 Note Cardiovascular Medic ine [place] Cardiology SUBJECTIVE Chief Complaint Patient presents with [...] infarction Hyperkalemia Hyperlipidemia Hypertension Injury of head care home current use of anticoagulant therapy Microscopic hematuria [...] RED ECHO (05/19 (more content not included)... [facility] 05-02-2022 Note PROCEDURE: XR SHOULD ER LT [...] authenticated by: TONY IYER Date: 2022-05-02 15:01 [facility] 01-18-2022 Hospital Discharge instructions Follow Up Care 01/18/2022 09:12:56 With:BILL NARAYANAN, Caleb Wyatt, URL Address: [facility] [address], [place] [address]- [phone] When: Unknown [facility] Evaluation + Plan note Future Appointments Appointment Date:01/18/2022 08:30:00 AM Scheduled Provider:Caleb JONES MD Location:[facility] Appointment Type:URO Office Visit [facility] [place] Evaluation note No assessment inform ation available [facility] Work Phone: History of Present illness Narrative [...] to return in 6 months for follow-up. [facility] 250 DO Work Phone: Hospital course Narrative No data available for this section [facility] [place] Hospital Discharge instructions No data available for this section [facility] [place] Progress note No data available for this section [facility] [place] Summary Purpose Family History No Family History [...] section and content) DATE CREATED AUTHOR 02/11/2018 [facility] DATE CREATED AUTHOR AUTHOR'S ORGANIZ ATION 10/29/2018 [facility] DATE CREATED AUTHOR AUTHOR'S ORGANIZ ATION 01/28/2021 [facility] DATE CREATED AUTHOR AUTHOR'S ORGANIZ ATION 09/04/2021 [facility] DATE CREATED AUTHOR AUTHOR'S ORGANIZ ATION 12/15/2022 [facility] DATE CREATED AUTHOR AUTHOR'S ORGANIZ ATION 04/15/2023 [facility] DATE CREATED AUTHOR AUTHOR'S ORGANIZ ATION 09/17/2023 [facility] DATE CREATED AUTHOR AUTHOR'S ORGANIZ ATION 10/08/2023 [facility] Patient Care team informatio n (unrecognized section and content) Personnel Name: Iker Harrison MD Address: Address: [address] [place] [address] Goals (unrecognized section and content) Goals may [...] BE BASED ON THE PRIMARY CLINICAL RECORDS. [employer] provides no warranty or guarantee of the accuracy or completeness of information in this document.
--- NOTE | 2023-10-17 10:00 | CA_ITS ---
Patient Name: KIM GARRISON MR#: [id number] : 1950 Exam Date: 10/17/2023 Ordering Doctor: RAND SANTILLAN ECHOCARDIOGRAM REPORT PROCEDURE: CA ECHO DOPPLER COMPLETE INDICATIONS: Atrial fib/flutter, loop recorder, hypertension, diabetes COMPARISON: None. DESCRIPTION: COMPLETE ECHOCARDIOGRAM Real-time transthoracic echocardiography with 2D, M-mode, spectral and color flow Doppler performed. QUALITY: Technical quality was good. 68 , 220#, BSA 2.13 m2 LEFT VENTRICLE: Normal chamber size. Mild concentric left ventricular hypertrophy. LV EF: Global left ventricular systolic function is difficult to assess but appears mildly reduced; visually estimated ejection fraction is 45 to 50%. Unable to assess regional wall motion abnormality; consider contrast study for better delineation of endocardial borders. DIASTOLIC: Not adequately assessed due to heart rhythm. ATRIAL SEPTUM: Inadequately seen. LEFT ATRIUM: Severe dilatation. RIGHT ATRIUM: Moderate dilatation. RIGHT VENTRICLE: Mild dilatation. Normal right ventricular systolic function. TRICUSPID VALVE: Normal mobility and thickness. Mild regurgitation. Doppler studies reveal mildly (35-45) elevated right sided pressures. RVSP 43 mmHg MITRAL VALVE: Normal mobility and thickness. No evidence of mitral valve stenosis. There is no mitral annular calcification. Mild mitral regurgitation. AORTIC VALVE: Normal trileaflet appearance. Normal leaflet mobility. No evidence of aortic valve stenosis. Multifocal calcifications. No aortic regurgitation. AORTIC ROOT: Normal diameter and appearance. PULMONIC VALVE: Normal thickness and mobility. No stenosis. Trivial regurgitation. PERICARDIUM: No evidence of pericardial effusion. IVC: Not well visualized. CONCLUSION: 1. Global left ventricular systolic function is difficult to assess but appears reduced; visually estimated ejection fraction is 45 to 50% 2. The right ventricle is mildly dilated with normal systolic function 3. Mildly increased left ventricular wall thickness 4. Biatrial enlargement 5. Mild tricuspid regurgitation 6. Mildly elevated right ventricular systolic pressure; RVSP 43 mmHg 7. Mild mitral regurgitation Adult Echocardiography Procedure Report Left Ventricle LVEDD (3.7 - 5.6 cm): 4.93 cm LVESD (2.2 - 4.0 cm): 4.14 cm LVIVS thickness (0.6 - 1.2 cm): 1.22 cm LVPW thickness (0.5 - 1.0 cm): 1.24 cm LVOT Max Gradient: 1.68 mm[Hg] LVOT Area (cm2): 0.65 m/s Peak Velocity (LVOT): 0.65 m/s Mean Velocity (LVOT): 0.42 m/s LVOT Diameter 2.78 cm Left Atrium LA Volume Index (2D A2C): 72.21 ml/m2 Left Atrium Systolic Dimension: 5.44 cm Mitral Valve Mitral Valve E-Wave Peak Velocity: 0.86 m/s Right Ventricle Aorta AO Root Diam: 3.71 cm Ascending Ao Diam: 3.19 cm Aortic Valve AoV Area (Peak Tawanda): 3.99 cm2, 3.99 cm2 AoV Area (VTI): 4.05 cm2, 4.05 cm2 Peak Velocity(Antegrade Flow): 0.98 m/s Peak Gradient(Antegrade Flow): 3.86 mm[Hg] Mean Velocity(Antegrade Flow): 0.68 m/s Mean Gradient(Antegrade Flow): 2.18 mm[Hg] Velocity Time Integral: 25.26 cm Tricuspid Valve Peak Velocity (Regurgitant Flow): 2.97 m/s Pulmonic Valve Peak Velocity: 0.74 m/s Peak Gradient: 2.34 mm[Hg], 2.08 mm[Hg] Right Atrium Right Atrium Systolic Pressure: 67.06 ml, 67.06 ml Dictated by: Saúl Estrada M.D. on 10/17/2023 at 12:44 Approved by: Saúl Estrada M.D. on 10/17/2023 at 12:48
== END 2023-10-17 09:50 | disposition home or self-care (01) ==
LOC: CARD 09:49
PROVIDERS: PCP Family Medicine; Visit Provider Internal Medicine Cardiovascular Disease
DX: I48.0 Paroxysmal atrial fibrillation (principal)
CPT/HCPCS: 93306

== ENCOUNTER 2024-02-25 14:07 | Outpatient (RCR) | payer OTHER, SELFPAY | END 2024-04-15 11:41 | disposition home or self-care (01) | LOC: PT 14:07 | PROVIDERS: PCP Family Medicine; Visit Provider Family Medicine | DX: R53.83 Other fatigue (principal) | CPT/HCPCS: 97110; 97112; 97140; 97162 ==

== ENCOUNTER 2024-05-12 07:11 | Outpatient (OUT) | payer OTHER, SELFPAY ==
--- OUTSIDE RECORDS SUMMARY | 2024-05-12 07:15 | XMS_ITS | CCD ---
Author Organization [facility] Care Team Providers Care Hide Shaker Name Role Phone PHYSICIAN, DEFAULT Unavailable Unavailable PHYSICIAN, DEFAULT Unavailable Unavailable Jonnathan Amaya Attending Unavailable Iker Corrigan Primary Care Unavailable Iker Corrigan Unavailable Unavailable Unavailable Iker Corrigan Primary Care Physician SHEKHAR ., DR DONG Primary Care Unavailable HOY ., DR DONG Admitting Unavailable HOY ., DR DONG Attending Unavailable HOY ., DR DONG Consulting Unavailable FAWWAD, TRONCOSO H Attending Unavailable FAWWAD, TRONCOSO H Admitting Unavailable HOY ., DR DONG Primary Care Unavailable HOY ., DR DONG Primary Care Unavailable KHAN ., DR ELLIS Consulting Unavailable KHAN ., DR ELLIS Admitting Unavailable KHAN ., DR ELLIS Attending Unavailable HOY ., [...] HOY ., DR DONG Primary Care Unavailable ELSA, GAVINO Admitting Unavailable GAVINO HUNTER Attending Unavailable GAVINO HUNTER Consulting Unavailable HOY ., DR DONG Primary Care Unavailable FAWWAD, TRONCOSO H Admitting Unavailable FAWWAD, TRONCOSO H Attending Unavailable HOY ., DR DONG Primary Care Unavailable FAWWAD, TRONCOSO H Attending Unavailable FAWWAD, TRONCOSO H Admitting Unavailable HOY ., DR DONG Primary Care Unavailable FAWWAD, TRONCSOO H Attending Unavailable FAWWAD, TRONCOSO H Admitting [...] Primary Care Unavailable GAVINO HUNTER Consulting Unavailable GAVINO HUNTER Admitting Unavailable GAVINO HUNTER Attending Unavailable HOY [...] Unavailable HAY ., DR GOMEZ Attending Unavailable GRECHNY ., SAYRA CALVO Consulting [place] HOY ., DR DONG Admgil Unavailable HOY ., DR DONG Primary Care Unavailable HOY ., DR DONG Attending Unavailable HOY ., DR DONG Consulting Unavailable GONCALVES ., DR RONIT West Consulting Unavailable RADHA RODRIGUEZ Consulting Unavailable MARI SO Consulting Unavailable ELSAGAVINO Consulting Unavailable FERNANDO GONZÁLES Consulting Unavailable AMEYA TANNER Consulting Unavailable HOY ., DR DONG Admitting Unavailable HOY ., DR DONG Primary Care Unavailable HOY ., DR DONG Attending Unavailable HOY ., DR DONG Admgil Unavailable HOY ., DR DONG Primary Care Unavailable HOY ., DR DONG Attending Unavailable HOY ., DR DONG Consulting Unavailable ZIEBER, DR TONY Wyatt Consulting Unavailable HOY ., DR DONG Primary Care Unavailable FAWWAD, TRONCOSO H Attending Unavailable SHAIKH Ankit REYNOLDS Admitting Unavailable Caleb KHAN Attending Unavailable Willie Vargas Attending Unavailab Willie Marinelli Admitting Unavailab Iker Ziegler Primary Care Unavailable GRETCHEN ABDULLAHI Referring Unavailable JACQUE, WESLEY Attending Unavailable JACQUE, WESLEY Referring Unavailable JACQUE, WESLEY Referring Unavailable JACQUE, WESLEY Referring Unavailable JACQUE, WESLEY Referring Unavailable JACQUE, WESLEY Attending Unavailable JACQUE, WESLEY Admitting Unavailable JACQUE, WESLEY Admitting Unavailable JACQUE, WESLEY Attending Unavailable JACQUE, WESLEY Referring Unavailable JACQUE, WESLEY Referring Unavailable JACQUE, WESLEY Attending Unavailable GAGE, ANALI Attending Unavailable BARAZISKYLER Attending Unavailable JACQUE, WESLEY Attending Unavailable JACQUE, WESLEY Attending Unavailable JACQUE, WESLEY Referring Unavailable JACQUE, WESLEY Referring Unavailable JACQUE, WESLEY Referring Unavailable JACQUE, WESLEY Referring Unavailable JACQUE, WESLEY Referring Unavailable JACQUE, WESLEY Referring Unavailable JACQUE, WESLEY Referring Unavailable Unavailable Unavailable Unavailable Allergies Allergy Classification Reported Allergen(s) Allergy Type Date of Onset Reaction(s) Facility (4 sources) Azithromycin; Translations: [Zithromax TABS] Drug Allergy Lip swelling (finding) [place] [id number] Work Phone: (3 sources) Acetaminophen / oxyCODONE; Translations: [acetaminophen-ox ycodone] Drug Allergy 8 Hallucinations (finding) [facility] [place] (2 sources) Azithromycin; Translations: [Zithromax] Drug Allergy 4 [facility] Repository (3 sources) Azithromycin; Translations: [azithromycin] Drug Allergy 1 Swelling of Lip/Tongue/Throat [facility] (1 source) Acetaminophen / oxyCODONE; Translations: [OXYCODONE-ACETAM INOPHEN] Drug Allergy 8 [facility] Repository Medications Current Medications Medication Drug Class(es) [...] HOURS. 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; Translations: [PENITENTIARY CURRNT USE ANTICOAGULANTS] Onset: 11-18-2022 Episodic Other [...] Suicidal thoughts; Translations: [Suicidal ideations] 06-13-2021 Episodic Unclassified (2 sources) Finding of sensation of bladder 12-14-2019 Unclassified (1 source) CONTACT W/AND (SUSP) EXPOS COVID-19; Translations: [CONTACT W/AND (SUSP) EXPOS COVID-19] Onset: 06-13-2022 Unclassified (2 sources) Other persistent atrial fibrillation; Translations: [Other persistent atrial fibrillation] Onset: 10-10-2023 Unclassified (2 sources) Longstanding persistent atrial fibrillation; Translations: [Longstanding persistent atrial fibrillation] Onset: 08-06-2023 Past or Other Problems Problem Classification Problem Date Documented Date Episodic/Chronic Cardiac dysrhythmias (3 sources) Bradycardia, unspecified; Translations: [Palpitations] Onset: 06-13-2022 Episodic E Codes: Fall (1 [...] 06-19-2022 Episodic Other aftercare (1 source) Other roasterman (current) drug therapy; Translations: [OTH PIGMENT WEIGHER CURRENT DRUG THERAPY] Onset: 06-19-2022 Episodic Other aftercare (1 source) 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; Translations: [PIGMENT WEIGHER CURRENT USE OF INSULIN] Onset: 06-19-2022 Episodic Other aftercare (1 source) 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 oral hypoglycemic drugs; Translations: [PENITENTIARY USE ORAL HYPOGLYCEMIC DX] Onset: 06-19-2022 Episodic Other circulatory disease (1 source) Orthostatic hypotension; Translations: [ORTHOSTATIC HYPOTENSION] Onset: 06-19-2022 Episodic Other circulatory disease (2 sources) Personal history of other diseases of the circulatory system; Translations: [Personal history of other diseases of the circulatory system] Onset: 01-16-2024 Episodic Other fractures (1 source) Fracture of [...] HX MALIG NEOPLASM PROSTATE] Onset: 01-17-2022 Episodic Residual codes; unclassified (2 sources) Other specified postprocedural states; Translations: [Other specified postprocedural states] Onset: 01-16-2024 Episodic Screening and history of mental health and substance abuse codes (2 sources) Ex-smoker; Translations: [Personal history of tobacco use] Onset: 06-13-2022 Episodic Comment on above: QUIT CIGS 1982; Superficial injury; contusion (1 source) Contusion of left shoulder, initial encounter; Translations: [CONTUSION LEFT SHOULDER INITIAL ENC] Onset: 05-03-2022 Episodic Syncope (5 sources) Syncope and collapse; Translations: [SYNCOPE AND COLLAPSE] Onset: 06-10-2022 Episodic Results Test Name Value Interpretation Reference Range Facility Office Visiton 03-30-2024 Follow-up visit [id number] Kim esquivel 1950 M Date Provider Department Center 03/30/2024 241-WESLEY SANTILLAN YADIRA [place] Family History Problem Relation Age of Onset Coronary artery disease Mother Coronary artery disease Father Heart attack Father Family Status - Relation Status Age at Mother Father Level of Service:[id number] [place] OFFICE/OUTPATIENT ESTABLISHED LOW MDM 20 MIN [facility] 37on 01-16-2024 37 Decrease amiodarone to 1/2 tablet- of the tablets you have in your bottle now or (100 mg daily) Decrease metoprolol to 12.5 mg twice a day - currently you are taking 1/2 tab or 25 mg twice a day [facility] Follow-Upon 01-16-2024 Follow-Up [id number] Kim Moreno 1950 M Date Provider Department Center 01/16/2024 120-ANALI ALMONTE YADIRA [place] Family History Problem Relation Age of Onset Coronary artery disease Mother Coronary artery disease Father Heart attack Father Family Status - Relation Status Age at Mother Father Level of Service:[id number] [place] POSTOP FOLLOW UP VISIT RELATED TO ORIGINAL PX [facility] Telephoneon 12-25-2023 Telephone [id number] Kim Moreno 1950 M Date Provider Department Center 12/25/2023 1987-KOLBY [facility]OD [facility] Family History Problem Relation Age of Onset Coronary artery disease Mother Coronary artery disease Father Heart attack Father Family Status - Relation Status Age at Mother Father Reason for Visit and Comments: post ablation f/u [Other] [facility] HPon 12-17-2023 [facility] Electrophysiology Consult Note Reason for visit: Syncope/ Afib 12/02/23 Patient here for H&P prior to afib ablation scheduled for 12/17/[address] Corrigan. Had CTA chest today at [facility]. 10/07/23 Patient underwent cardioversion to sinus rhythm on 08/06/2023 subsequently he also underwent a loop implant on the same day. Episodes revealed recurrence of A-fib soon after that. He did feel better in SR. Denies chest pain, lightheadedness/syncop e, and bleeding on Eliquis. HPI: Kim Moreno is a 73 y.o. year old with [...] Past Medical History: Diagnosis Date A-fib (CMS/HCC) Awareness under anesthesia Bradycardia Diabetes mellitus (CMS/HCC) HLD (hyperlipidemia) Hypertension Obesity BMI 33.91 Syncope PSH: Past Surgical History: Procedure Laterality Date CARDIOVERSION N/A 08/06/2023 CHOLECYSTECTOMY MULTIPLE TOOTH EXTRACTIONS ROTATOR CUFF REPAIR SH: Social Determinants of Health Tobacco Use: Medium Risk (12/17/2023) Patient History Smoking Tobacco Use: Former Smokeless Tobacco Use: Never Passive Exposure: Not on file Alcohol Use: Not on file Financial Resource Strain: Not on file Food Insecurity: Not on file Transportation Needs: Not on file Physical Activity: Not on file Stress: Not on file Social Connections: Not on file Intimate Partner Violence: Unknown (10/09/2023) CT Safety & Environment Fear of Current or Ex-Partner: Not on file Emotionally Abused: Not on file Physically Abused: Not on file Sexually Abused: Not on file Physically or Sexually Abused: Not on file Depression: Not on file Housing Stability: Not on file Utilities: Not on file Allergies: Allergies Allergen Reactions Oxycodone-Acetaminophe n Hallucinations Zithromax [Azithromycin] Weight: 101kg Visit Vitals BP 107/58 (BP Location: Left arm) Pulse 62 Temp 35.7 ???C (96.3 ???F) (Temporal) Resp 18 Ht 1.727 m (5' 8 ) Wt 103 kg (227 lb 11.8 oz) SpO2 95% BMI 34.63 kg/m??? Smoking Status Former BSA 2.22 m??? Meds: No current facility-administered medications on file prior to encounter. Current Outpatient Medications on File Prior to Encounter Medication Sig Dispense Refill amiodarone (Pacerone) 200 [...] (Lantus) 100 unit/mL (3 mL) pen Inject 40 Units under the skin in the morning. sertraline (Zoloft) 100 mg tablet Take 100 mg by mouth in the morning. simvastatin (Zocor) 20 mg tablet Take 20 mg by mouth at bedtime. tamsulosin (Flomax) 0.4 mg 24 hr capsule Take 0.4 mg by mouth. metoprolol tartrate (Lopressor) 50 mg tablet Take 0.5 tablets (25 mg) by mouth in the morning and at bedtime. 30 tablet 0 nitroglycerin (Nitrostat) 0.[address] 0.4 mg under the tongue every 5 (five) minutes if needed for chest pain. ROS: Review of Systems Cardiovascular: Positive for chest pain ( not often ), dyspnea on exertion, leg swelling (minimal) and palpitations ( once in awhile ). Hematologic/Lymphatic: Bruises/bleeds easily. Musculoskeletal: Positive for myalgias. All other systems reviewed and are negative. Physical Exam: Telemed Labs: @LABRESULTS@ No results found for: CHOLESTEROL TOTAL , HDL , LDL CALC , LDL DIRECT , TRIGLYCERIDES , TSH , T3 TOTAL , T4 TOTAL , THYROID PEROXIDASE AB , BNP EKG: Encounter Date: 12/17/23 Electrocardiogram, 12-lead Result Value Ventricular Rate 62 QRS DURATION 104 QT Interval 474 QTC CALCULATION(BAZETT) 481 R-[employer] -37 T Wave [employer] -8 Impression Atrial fibrillation Left axis deviation Inferior infarct (cited on or before 06-AUG-2023) Abnormal ECG When compared with ECG of 06-AUG-2023 11:26, Atrial fibrillation has replaced Sinus rhythm Nonspecific T wave abnormality now evident in Anterior leads Event monitor Echo: 09/27/22 Stress test: Coronary [...] the echocardiogram and so the success of mainta (more content not included)... Normal [facility] NURSNOTEon 12-17-2023 USHA RN reviewed discharg e instructions with patient and brother at bedside. Patient has prescriptions from [facility]. No questions expressed at this time. Patient's groin is clean, dry, intact, soft upon discharge Normal [facility] Orders Onlyon 12-17-2023 Orders Only [id number] Kim Moreno 1950 M Date Provider Department Center 12/17/2023 Mikael-[facility]OD [facility] Family History Problem Relation Age of Onset Coronary artery disease Mother Coronary artery disease Father Heart attack Father Family Status - Relation Status Age at Mother Father Normal [facility] POCT GLUCOSE METER UNSOLICIT ED RESULTSon 12-17-2023 Glucose [Mass/Vol] 97 mg/dL Normal 70-105 [facility] Comment on above: Order Comment: Waive d Testing in the ED is performed under the ED CLIA certificate #[id number]. Result Comment: hste enr2 Performed By: #### L [id number] ####[facility] (BEAKER)[address] [place] [address] Glucose [Mass/Vol] 119 mg/dL High 70-105 [facility] Comment on above: Order Comment: Waive d Testing in the ED is performed under the ED CLIA certificate #[id number]. Result Comment: rcle mes Performed By: #### L [id number] #### [facility] ([facility]) [address] [place] [address] Glucose [Mass/Vol] 68 mg/dL Low 70-105 [facility] Comment on above: Order Comment: Waive d Testing in the ED is performed under the ED CLIA certificate #[id number]. Result Comment: rcle mes Performed By: #### L [id number] #### [facility] (BEXceive) [address] [place] [address] Glucose [Mass/Vol] 87 mg/dL Normal 70-105 [facility] Comment on above: Order Comment: Waive d Testing in the ED is performed under the ED CLIA certificate #[id number]. Result Comment: rcle mes Performed By: #### L [id number] ####[facility] (Fididel)[address] [place] [address] Glucose [Mass/Vol] 62 mg/dL Low 70-105 [facility] Comment on above: Order Comment: Waive d Testing in the ED is performed under the ED CLIA certificate #[id number]. Result Comment: asor ia3 Performed By: #### L [id number] #### [facility] ([facility]) [address] [place] [address] PROTIME-INRon 12-17-2023 INR IN PPP BY COAGULATION ASSAY 1.39 High 0.90-1.10 [facility] Comment on above: Result Comment: ACCC P RECOMMENDED INR FOR WARFARIN THERAPY CONDITION INR PROPHYLAXIS OF VENOUS THROMBOSIS 2-3 (HIGH-RISK SURGERY) TREATMENT OF VENOUS THROMBOSIS 2-3 TREATMENT OF PULMONARY EMBOLISM 2-3 PREVENTION OF SYSTEMIC EMBOLISM: 2-3 ACUTE MYOCARDIAL INFARCTION TISSUE HEART VALVES VALVULAR HEART DISEASE ATRIAL FIBRILLATION RECURRENT SYSTEMIC EMBOLISM MECHANICAL HEART VALVE 2.5-3.5 FROM: ORAL ANTICOAGULANTS. MECHANISM OF ACTION, CLINICAL EFFECTIVENESS, AND OPTIMAL THERAPEUTIC RANGE. CHEST 1995;108:231S-246S. Performed By: #### L [id number] #### [facility] ([facility]) [address] [place] [address] PROTHROMBIN TIME (PT) IN PPP BY COAGULATION ASSAY 17.1 Seconds High 12.3-14.8 [facility] Comment on above: Performed By: #### L [id number] #### [facility] ([facility]) [address] [facility] [place] [address] Prep for Procedureon 024 Prep for Procedure [id number] Kim Moreno 1950 M Date Provider Department Center 12/17/20231986-[facility]OLBY WOOD [facility] VASC LAB CT [facility] Family History Problem Relation Age of Onset Coronary artery disease Mother Coronary artery disease Father Heart attack Father Family Status - Relation Status Age at Mother Father Normal [facility] [id number] 12-12-2023 [id number] ARRIVAL TIME GIVEN 0700 PT LIVES WITH BROTHER AND HE WILL BE PT FILM OR TAPE LIBRARIAN HOLD ELIQUIS 12/14 MEDICATIONS TO TAKE DAY OF SURGERY WITH SIP OF WATER AMIODARONE LANTUS METOPROLOL ZOLOFT PT CONFIRMED HAD PEN AND PAPER TO WRITE WHAT MEDS TO TAKE ON DAY OF SURGERY HOLD VITAMINS AND SUPPLEMENTS 5 DAYS PRIOR TO PROCEDURE HOLD ALL ANTI INFLAMMATORIES ETC:MOTRIN, ADVIL, ALEVE, FOR 5 DAYS PRIOR TO PROCEDURE IF YOU ARE GOING HOME AFTER YOUR SURGERY OR PROCEDURE, FOR YOUR SAFETY, YOUR SURGERY WILL BE CANCELLED IF BOTH OF THE FOLLOWING ARE NOT AVAILABLE: An adult route relief driver over the age of 18, that can receive information about your care after surgery, and drive you home. A responsible adult to stay with you for 24 hours in case of an emergency. Can be same as above. The highest risk of complications is within the first 24 hours after sedation/anesthesia. Nothing to eat or drink after midnight the night before surgery. This includes gum, candy, mints, and lozenges. No alcohol, marijuana, or tobacco products including vaping for 24 hours. Please brush your teeth; don't swallow the toothpaste or water. If you use dentures, wear them but do not use paste. Please leave any other removable dental hardware at home. Do not put in contact lenses. Do not wear perfume, make-up, nail german, or lotions on the day of your surgery or procedure. Follow skin-prep/wipe instructions as below if required. Bring with you: *Insurance card *Photo ID *Medication list *Co-pay for visit/prescriptions If applicable: *Rescue inhalers *Green bracelet from lab *CPAP or BiPAP machine, if staying overnight *Any braces, splints, or equipment ordered preoperatively *Remote controls for implanted devices Leave at home: *Purse/Wallet/Mejia- unless needed for co-pay *Cell phone (can leave with family/friend or place in locker if needed) *Jewelry (including piercings and wedding bands) *If not possible, ask the person who is waiting with you to keep them Children under the age of 12 will not be allowed into patient care areas. We will call you between 3pm and 4pm the day before your surgery to give you an arrival time. If you do not receive this call, have any questions, or need to make any changes, please call [phone]. Notify your surgeon if you develop any illness such as a cold, cough, fever, sore throat or vomiting between now and your surgery. Thank you for entrusting us with your care. [facility] Surgical Services Team Normal [facility] BASIC METABOLIC PANELon 04-1 Anion gap [Moles/Vol] 11 mmol/L Normal 7-20 [facility] Comment on above: Performed By: #### L [id number] #### [facility] ([facility]) [address] [place] [address] Calcium [Mass/Vol] 9.3 mg/dL Normal 8.6-10.3 [facility] Comment on above: Performed By: #### L [id number] #### [facility] ([facility]ER) [address] [place] [address] Chloride [Moles/Vol] 109 mmol/L High 98-107 [facility] Comment on above: Performed By: #### L [id number] #### [facility] ([facility]) [address] [place] [address] CO2 [Moles/Vol] 24 mmol/L Normal 21-31 [facility] Comment on above: Performed By: #### L [id number] #### [facility] ([facility]) [address] [place] [address] Creatinine [Mass/Vol] 1.53 mg/dL High 0.70-1.30 [facility] Comment on above: Performed By: #### L [id number] #### [facility] ([facility]) [address] [place] [address] GLOMERULAR FILTRATION RATE ML/MIN/1.73 SQ M.PREDICTED 48.0 mL/min/1.73m*2 Low >60.0 [facility] Comment on above: Result Comment: The [facility]???s estimated glomerular filtration rate (eGFR) will no longer include consideration of race in its calculation. The National Kidney Foundation???s eGFR Task Force developed new recommendations for the estimation of the glomerular filtration rate in the [place] They recommend immediate implementation of the new equation refit without the race variable in all laboratories because the calculation does not include race. In addition to not including race in the calculation and reporting, it included diversity in its development, and has acceptable performance characteristics and potential consequences that do not disproportionately affect any one group of individuals. Performed By: #### L [id number] #### [facility] ([facility]) [address] [place] [address] Glucose [Mass/Vol] 59 mg/dL Low 70-100 [facility] Comment on above: Performed By: #### L [id number] #### [facility] ([facility]) [address] [place] [address] Potassium [Moles/Vol] 4.7 mmol/L Normal 3.5-5.1 [facility] Comment on above: Performed By: #### L [id number] #### [facility] ([facility]) [address] [place] [address] Sodium [Moles/Vol] 139 mmol/L Normal 136-145 [facility] Comment on above: Performed By: #### L [id number] #### [facility] ([facility]) [address] [place] [address] Urea nitrogen [Mass/Vol] 26 mg/dL High 7-25 [facility] Comment on above: Performed By: #### L [id number] #### [facility] ([facility]) [address] [place] [address] UREA NITROGEN/CREATININE (MASS RATIO) IN SER/PLAS 17.0 Normal [facility] Comment on above: Performed By: #### L [id number] #### [facility] ([facility]) [address] [place] [address] CBCon 12-02-2023 Erythrocyte distribution width (RBC) [Ratio] 13.8 % Normal 11.5-15.0 [facility] Comment on above: Performed By: #### L [id number] #### [facility] ([facility]) [address] [place] [address] ERYTHROCYTE MEAN CORPUSCULAR HEMOGLOBIN CONCENTRATION (G/DL) BY AUTOMATED 32.8 g/dL Normal 32.0-35.0 [facility] Comment on above: Performed By: #### L [id number] #### [facility] ([facility]) [address] [place] [address] Hematocrit (Bld) [Volume fraction] 41.1 % Normal 39.0-55.0 [facility] Comment on above: Performed By: #### L [id number] #### [facility] ([facility]) [address] [place] [address] Hemoglobin (Bld) [Mass/Vol] 13.5 g/dL Normal 13.0-17.0 [facility] Comment on above: Performed By: #### L [id number] #### [facility] ([facility] [address] [facility] [place] [address] MCH (RBC) [Entitic mass] 30.7 pg Normal 27.0-33.0 [facility] Comment on above: Performed By: #### L [id number] #### [facility] ([facility]) [address] [place] [address] MCV (RBC) [Entitic vol] 93.4 fL Normal 82.0-98.0 [facility] Comment on above: Performed By: #### L [id number] #### [facility] ([facility]) [address] [place] [address] PLATELETS (10*3/UL) IN BLOOD AUTOMATED COUNT 229 10*3/uL Normal 150-400 [facility] Comment on above: Performed By: #### L [id number] #### [facility] ([facility]) [address] [place] [address] RBC (Bld) [#/Vol] 4.40 10*6/uL Normal 4.20-5.70 [facility] Comment on above: Performed By: #### L [id number] #### [facility] ([facility]) [address] [place] [address] WBC (Bld) [#/Vol] 11.28 10*3/uL High 4.00-10.60 [facility] Comment on above: Performed By: #### L [id number] #### [facility] ([facility]) [address] [place] [address] CTA CHEST W IV CONTRASTon CTA CHEST W IV CONTRAST CTA CHEST W IV CONTRAST 12/02/2023 10:57 AM CLINICAL INDICATIONS: Paroxysmal atrial fibrillation. Preablation evaluation. PROTOCOL: Gated chest CTA CONTRAST: 100 mL Omnipaque 350 TECHNIQUE: Multidetector CT axial slices of the chest were obtained with IV contrast. Multiplanar reformats were performed and viewed on a separate workstation and reviewed to further define anatomy and possible pathology. All CT scans at this facility use dose modulation, iterative reconstruction, and/or weight based dosing when appropriate to reduce radiation dose to as low as reasonably achievable. COMPARISON: None. FINDINGS: Lower neck: Thyroid gland within normal limits, no supraclavicle adenopathy. Vessels: Pulmonary arteries are Within normal limits. Mild atherosclerotic changes in the aorta. and coronary arteries. Mediastinum and Karina: Calcified right hilar granulomatous lymph nodes. No pathologic hilar or mediastinal adenopathy. Heart: Mild cardiomegaly. No pericardial effusion. Airways: Within normal limits with mild tracheal bronchial calcification Lungs: Mild bilateral dependent atelectasis. Calcified 6 mm granuloma in the right lower lobe best seen in axial image 32 series 9. Platelike atelectasis in the inferior right middle lobe. Pleura: Within normal limits. Chest Wall: Bilateral symmetric gynecomastia is visualized. No axillary adenopathy. Radiopaque loop recorder is seen in the subcutaneous venous tissue of the left upper anterior chest medially. Upper Abdomen: 5 mm calcified granuloma the dome of the right lobe of the liver and inferior right lobe.. Metallic clips in the gallbladder fossa from prior cholecystectomy. One CM splenule adjacent to the inferior pole of the spleen. Small calcified granuloma in the posterior pole of the spleen. Bones: Evidence of diffuse hepatic skeletal hyperostosis in the thoracic spine. No acute bony pathology. 3-D volume rendered images of the left atrium, draining pulmonary veins and left atrial appendage are obtained in various projections and saved on PACS. The left atrium is enlarged in size and normal in configuration. The left atrium measures maximum transverse dimensions of 10 x 6 cm. The left atrial appendage ostium is 1.8 cm in diameter. The appendage is approximately 7 cm in length. Left superior pulmonary vein ostium is approximately 2.1 cm in diameter and first branch is approximately 2 cm from the ostium. The left inferior pulmonary vein ostium is 1.7 cm in diameter and first branch is approximately 2.2 cm from the ostium. 3 right-sided pulmonary veins are visualized. The right superior pulmonary vein diameter is 1.6 cm and first branch is approximately 2.9 cm from the ostium. The smaller right middle pulmonary vein ostium is 0.9 cm in diameter and first branch is approximately 1.9 cm from the ostium. The right inferior pulmonary vein ostium is 1.8 cm and first branch is approximately 1.6 cm from the ostium contrast-filled esophagus is seen immediately posterior to the left atrium and in close proximity to the right inferior pulmonary vein ostium. IMPRESSION: Calcified granuloma in the right lower lobe with calcified granulomatous right hilar lymph nodes, calcified granulomas in the liver and spleen. Mild cardiomegaly with enlarged left atrium and the measurements are listed above. Normal variant of 3 pulmonary veins seen on the right side and 2 pulmonary veins normally on the left side. The esophagus is in close proximity to the ostium of the right inferior pulmonary vein. Bilateral symmetric gynecomastia. Diffuse idiopathic skeletal hyperostosis and evidence of prior cholecystectomy. Loop recorder in the left anterior upper chest Electronically signed: Reynaldo Bustillos. Normal [facility] Comment on above: Order Comment: Pleas e schedule prior to december 16, will need BMP prior Labon 12-02-2023 Lab [id number] Raclaudiasmelissader,Kim E 1950 M Date Provider Department Center 12/02/2023 [id number] OPD LAB RESOURCE [facility]PD CT Medical C Family History Problem Relation Age of Onset Coronary artery disease Mother Coronary artery disease Father Heart attack Father Family Status - Relation Status Age at Mother Father Normal [facility] Office Visiton 12-02-2023 Follow-up visit [id number] Raclaudiasmelissader,Kim E 1950 M Date Provider Department Center 12/02/2023 241-WESLEY SANTILLAN YADIRA [facility] Family History Problem Relation Age of Onset Coronary artery disease Mother Coronary artery disease Father Heart attack Father Family Status - Relation Status Age at Mother Father Level of Service:45384 [place] OFFICE/OUTPATIENT ESTABLISHED HIGH MDM 40 MIN Normal [facility] Orders Onlyon 10-10-2023 Orders Only [id number] Katalinader,Kim E 1950 M Date Provider Department Center 10/10/2023 895-JOSTIN DIAZ YADIRA [facility] Family History Problem Relation Age of Onset Coronary artery disease Mother Coronary artery disease Father Heart attack Father Family Status - Relation Status Age at Mother Father Normal [facility] Prep for Procedureon 024 Prep for Procedure [id number] Raclaudiasmelissader,Kim E 1950 M Date Provider Department Center 10/10/2023 Mikael-[facility] VASC LAB CT HeartVAS Family History Problem Relation Age of Onset Coronary artery disease Mother Coronary artery disease Father Heart attack Father Family Status - Relation Status Age at Mother Father Normal [facility] Office Visiton 10-07-2023 Follow-up visit [id number] Kim Moreno 1950 M Date Provider Department Center 10/07/2023 WESLEY BALLARD YADIRA [facility] Family History Problem Relation Age of Onset Coronary artery disease Mother Coronary artery disease Father Heart attack Father Family Status - Relation Status Age at Mother Father Level of Service:25881 [place] OFFICE/OUTPATIENT ESTABLISHED HIGH MDM 40 MIN Normal [facility] HPon 08-06-2023 [facility] Electrophysiology Consult Note Reason for visit: Syncope/ Afib HPI: Kim Moreno is a 73 y.o. year old with [...] BNP, BNP EKG: (more content not included)... Normal [facility] Orders Onlyon 07-30-2023 Orders Only [id number] Kim Moreno 1950 [facility] Provider Department Center 07/30/2023 ALLISON COLE Fernie VASC LAB [facility] Family History Problem Relation Age of Onset Coronary artery disease Mother Coronary artery disease Father Heart attack Father Family Status - Relation Status Age at Mother Father [facility] Telemedicineon 06-24-2023 Telemedicine [id number] Kim esquivel 1950 M [facility] Provider Department Center 06/24/2023 241-WESLEY SANTILLAN YADIRA [facility] Family History Problem Relation Age of Onset Coronary artery disease Mother Coronary artery disease Father Heart attack Father Family Status - Relation Status Age at Mother Father Level of Service:20483 [facility] PHYS/QHP TELEPHONE EVALUATION 11-20 MIN [facility] Office Visiton 06-20-2023 Follow-up visit [id number] Kim Moreno 1950 [facility] Provider Department Center 06/20/2023 SKYLER TATUM YADIRA [place] Family History Problem Relation Age of Onset Coronary artery disease Mother Coronary artery disease Father Heart attack Father Family Status - Relation Status Age at Mother Father Level of Service:24074 [place] OFFICE/OUTPATIENT ESTABLISHED MOD [facility] 30-39 MIN Reason for Visit and Comments: Follow-up [[id number]] Normal [facility] Provider Letteron 04-14-2023 Provider Letter April 14, 2023 KIM MORENO [address] [place] [id number] : 1950 Dear Kim , We have been trying to reach you with no success, your voice mail box was full. You had an appointment with Dr. Khan on 04/14/23 which will need to be rescheduled as you left without seeing the provider. Please contact the office at the number listed below to get this appointment rescheduled at your earliest convenience. Thank you for your prompt attention to this matter. Sincerely, [facility] [address], [place] [address] Normal [facility] PROF CHEM 8 (BAS METB)on Anion gap [Moles/Vol] 12.9 mmol/L Normal [facility] Comment on above: Performed By: #### C MREP #### [facility] [address] [address] [address] Caroline Bell Calcium [Mass/Vol] 9.4 mg/dL Normal 8.5-10.1 [facility] Comment on above: Performed By: #### C MREP #### [facility] [address] [address] [address] Caroline Bell Chloride [Moles/Vol] 106 mmol/L Normal 98-107 [facility] Comment on above: Performed By: #### C MREP #### [facility] [address] [address] [address] Caroline Bell CO2 [Moles/Vol] 28.0 mmol/L Normal 21.0-32.0 [facility] Comment on above: Performed By: #### C MREP #### [facility] [address] [address] [address] Caroline Bell Creatinine [Mass/Vol] 1.63 mg/dL Critically high 0.70-1.30 [facility] Comment on above: Performed By: #### C MREP #### [facility] [address] [address] [address] Caroline Bell EGFR-AF MICRONESIAN 51 mL/min/1.73m2 Critically low >=60 [facility] Comment on above: Performed By: #### C MREP #### [facility] [address] [address] [address] Caroline Bell EGFR-NON AF MICRONESIAN 42 mL/min/1.73m2 Critically low >=60 [facility] Comment on above: Performed By: #### C MREP #### [facility] [address] [address] [address] Caroline Bell Glucose [Mass/Vol] 79 mg/dL Normal 74-106 [facility] Comment on above: Performed By: #### C MREP #### [facility] [address] [address] [address] Caroline Bell Potassium [Moles/Vol] 4.9 mmol/L Normal 3.5-5.1 [facility] Comment on above: Performed By: #### C MREP #### [facility] [address] [address] [address] Caroline Bell Sodium [Moles/Vol] 142 mmol/L Normal 136-145 [facility] Comment on above: Performed By: #### C MREP #### [facility] [address] [address] [address] Caroline Bell Urea nitrogen [Mass/Vol] 32.0 mg/dL Critically high 7.0-18.0 [facility] Comment on above: Performed By: #### C MREP #### [facility] [address] [address] [address] Caroline Bell Urea nitrogen/Creatinine [Mass ratio] 19.6 mg/mg Normal [facility] Comment on above: Performed By: #### C MREP #### [facility] [address] [address] [address] Caroline Bell PROF CHEM 8 (BAS METB)on Anion gap [Moles/Vol] 14.7 mmol/L Normal [facility] Comment on above: Performed By: #### I NSULIN #### [facility] [address] [address] [address] Caroline Bell Calcium [Mass/Vol] 9.1 mg/dL Normal 8.5-10.1 [facility] Comment on above: Performed By: #### I NSULIN #### [facility] [address] [address] [address] Caroline Bell Chloride [Moles/Vol] 107 mmol/L Normal 98-107 [facility] Comment on above: Performed By: #### I NSULIN #### [facility] [address] [address] [address] Caroline Bell CO2 [Moles/Vol] 26.4 mmol/L Normal 21.0-32.0 [facility] Comment on above: Performed By: #### I NSULIN #### [facility] [address] [address] [address] Caroline Bell Creatinine [Mass/Vol] 1.82 mg/dL Critically high 0.70-1.30 [facility] Comment on above: Performed By: #### I NSULIN #### [facility] [address] [address] [address] Caroline Bell EGFR-AF MICRONESIAN 45 mL/min/1.73m2 Critically low >=60 [facility] Comment on above: Performed By: #### I NSULIN #### [facility] [address] [address] [address] Caroline Bell EGFR-NON AF MICRONESIAN 37 mL/min/1.73m2 Critically low >=60 [facility] Comment on above: Performed By: #### I NSULIN #### [facility] [address] [address] [address] Caroline Bell Glucose [Mass/Vol] 324 mg/dL Critically high 74-106 [facility] Comment on above: Performed By: #### I NSULIN #### [facility] [address] [address] [address] Caroline Bell Potassium [Moles/Vol] 5.1 mmol/L Normal 3.5-5.1 [facility] Comment on above: Performed By: #### I NSULIN #### [facility] [address] [place], [place] [address] Dr. Caroline Bell Sodium [Moles/Vol] 143 mmol/L Normal 136-145 [facility] Comment on above: Performed By: #### I NSULIN #### [facility] [address] [place], [place] [address] Dr. Caroline Bell Urea nitrogen [Mass/Vol] 30.0 mg/dL Critically high 7.0-18.0 [facility] Comment on above: Performed By: #### I NSULIN #### [facility] [address] [address] [address] Caroline Bell Urea nitrogen/Creatinine [Mass ratio] 16.5 mg/mg Normal [facility] Comment on above: Performed By: #### I NSULIN #### [facility] [address] [address] [address] Caroline Bell ECHOCARDIO M/2D COMPLETEon 0 09-27-2022 ECHOCARDIO M/2D COMPLETE Patient: KIM MORENO Exam Date: 09/27/2022 : 1950 Gender:M Ordering : DR IKER CORRIGAN . Admission #: [id number] Family : [facility] Order #: [id number] CLICK HERE TO VIEW EXAM ECHOCARDIOGRAM REPORT [...] Estrada M.D. on 09/27/2022 at 15:06 Normal [facility] INSULINon 09-24-2022 Insulin 19.1 uIU/mL Normal 2.6-24.9 [facility] Comment on above: Performed By: #### I NSULIN #### [facility] [address] [place] [address] Dr. Caroline Bell BNPon 09-23-2022 Natriuretic peptide B (Bld) [Mass/Vol] 2963.0 pg/mL Critically high <=900.0 [facility] Comment on above: Performed By: #### V ITAD, PSASC #### [facility] [address] [place] [address] Dr. Caroline Bell CBC AUTO DIFFon 09-23-2022 BASO # 0.1 103/ul Normal 0.0-0.1 [facility] Comment on above: Performed By: #### P OCGLUC #### [facility] [address] [place] [address] Dr. Caroline Bell Basophils/100 WBC (Bld) 0.8 % Normal 0.2-2.0 [facility] Comment on above: Performed By: #### P OCGLUC #### [facility] [address] [place] [address] Dr. Caroline Bell EO # 0.3 103/ul Normal 0.0-0.7 [facility] Comment on above: Performed By: #### P OCGLUC #### [facility] [address] [place] [address] Dr. Caroline Bell Eosinophils/100 WBC (Bld) 4.2 % Normal 0.9-7.0 [facility] Comment on above: Performed By: #### P OCGLUC #### [facility] [address] [place] [address] Dr. Caroline Bell Erythrocyte distribution width (RBC) [Ratio] 14.1 % Normal 11.0-15.0 [facility] Comment on above: Performed By: #### P OCGLUC #### [facility] [address] [place] [address] Dr. Caroline Bell Hematocrit (Bld) [Volume fraction] 41.8 % Critically low 42.0-54.0 [facility] Comment on above: Performed By: #### P OCGLUC #### [facility] [address] [address] [address] Caroline Bell Hemoglobin (Bld) [Mass/Vol] 12.7 g/dL Critically low 14.0-18.0 [facility] Comment on above: Performed By: #### P OCGLUC #### [facility] [address] [address] [address] Caroline Bell IG # 0.03 10e3/ul Normal 0.00-0.03 [facility] Comment on above: Performed By: #### P OCGLUC #### [facility] [address] [address] [address] Caroline Bell IG % 0.4 % Normal 0.0-0.5 [facility] Comment on above: Performed By: #### P OCGLUC #### [facility] [address] [place] [address] Dr. Caroline Bell LYMPH # 1.8 103/ul Normal 1.2-3.8 [facility] Comment on above: Performed By: #### P OCGLUC #### [facility] [address] [address] [address] Caroline Bell Lymphocytes/100 WBC (Bld) 23.0 % Normal 20.5-60.0 [facility] Comment on above: Performed By: #### P OCGLUC #### [facility] [address] [place] [address] Dr. Caroline Bell MANUAL DIFF REQ NO Normal [facility] Comment on above: Performed By: #### P OCGLUC #### [facility] [address] [address] [address] Caroline Bell MCH (RBC) [Entitic mass] 29.3 pg Normal 25.9-34.0 [facility] Comment on above: Performed By: #### P OCGLUC #### [facility] [address] [address] [address] Caroline Bell MCHC (RBC) [Mass/Vol] 30.4 g/dL Normal 29.9-35.2 [facility] Comment on above: Performed By: #### P OCGLUC #### [facility] [address] [address] [address] Caroline Bell MCV (RBC) [Entitic vol] 96.3 fL Critically high 80.0-94.0 [facility] Comment on above: Performed By: #### P OCGLUC #### [facility] [address] [address] [address] Caroline Bell MONO # 0.5 103/ul Normal 0.3-0.8 [facility] Comment on above: Performed By: #### P OCGLUC #### [facility] [address] [address] [address] Caroline Bell Monocytes/100 WBC (Bld) 6.2 % Normal 1.7-12.0 [facility] Comment on above: Performed By: #### P OCGLUC #### [facility] [address] [place] [address] Dr. Caroline Bell NEUT # 5.2 103/ul Normal 1.4-6.5 [facility] Comment on above: Performed By: #### P OCGLUC #### [facility] [address] [place] [address] Dr. Caroline Bell Neutrophils/100 WBC (Bld) 65.4 % Normal 43.0-75.0 [facility] Comment on above: Performed By: #### P OCGLUC #### [facility] [address] [place] [address] Dr. Caroline Bell Platelet mean volume (Bld) [Entitic vol] 10.0 fL Normal 9.5-13.5 [facility] Comment on above: Performed By: #### P OCGLUC #### [facility] [address] [place] [address] Dr. Caroline Bell PLT 232 103/ul Normal 150-450 [facility] Comment on above: Performed By: #### P OCGLUC #### [facility] [address] [place] [address] Dr. Caroline Bell RBC 4.34 106/ul Critically low 4.70-6.10 [facility] Comment on above: Performed By: #### P OCGLUC #### [facility] [address] [address] [address] Caroline Bell WBC 7.9 103/ul Normal 4.0-11.0 [facility] Comment on above: Performed By: #### P OCGLUC #### [facility] [address] [place] [address] Dr. Caroline Bell FREE THYROXINE INDEX T7on FTI 2.05 Normal 1.30-4.50 [facility] Comment on above: Performed By: #### V ITAD, PSASC #### [facility] [address] [place] [address] Dr. Caroline Bell T3U 33.0 % Normal 33.0-40.0 [facility] Comment on above: Performed By: #### V ITAD, PSASC #### [facility] [address] [place] [address] Dr. Caroline Bell T4 [Mass/Vol] 6.20 ug/dL Normal 4.50-12.10 [facility] Comment on above: Performed By: #### V ITAD, PSASC #### [facility] [address] [place] [address] Dr. Caroline Bell GLYCOHEMOGLOBIN A1Con 2022 ADA RECOMMENDATION SEE BELOW Normal [facility] Comment on above: Result Comment: ADA RECOMMENDED LIMIT 4.0 - 6.0 ADA THERAPEUTIC TARGET < 7.0 ACTION SUGGESTED > 7.0 Performed By: #### P OCGLUC #### [facility] [address] [place] [address] Dr. Caroline Bell HbA1c (Bld) [Mass fraction] 7.2 % Critically high 4.5-6.2 [facility] Comment on above: Performed By: #### P OCGLUC #### [facility] [address] [place] [address] Dr. Caroline Bell LIPID PROFILEon 09-23-2022 CHOL-HDL RATIO NORM SEE BELOW Normal [facility] Comment on above: Result Comment: 3.3 - 4.4 LOW RISK 4.4 - 7.1 AVERAGE RISK 7.1 - 11.0 MODERATE RISK >11.0 HIGH RISK Performed By: #### V ITAD, PSASC #### [facility] [address] [address] [address] Caroline Bell Cholesterol [Mass/Vol] 132 mg/dL Normal <=200 [facility] Comment on above: Performed By: #### V ITAD, PSASC #### [facility] [address] [address] [address] Caroline Bell Cholesterol in HDL [Mass/Vol] 67 mg/dL Critically high 40-60 [facility] Comment on above: Performed By: #### V ITAD, PSASC #### [facility] [address] [address] [address] Caroline Bell Cholesterol in LDL [Mass/Vol] 54.2 mg/dL Normal [facility] Comment on above: Performed By: #### V ITAD, PSASC #### [facility] [address] [address] [address] Caroline Bell Cholesterol.total/Ch olesterol in HDL [Mass ratio] 2.0 {ratio} Normal [facility] Comment on above: Performed By: #### V ITAD, PSASC #### [facility] [address] [address] [address] Caroline Bell HDL NORMAL > or = 60 mg/dl - LO W CARDIOVASCULAR RISK <40 mg/dl - HIGH CARDIOVASCULAR RISK Normal [facility] Comment on above: Performed By: #### V ITAD, PSASC #### [facility] [address] [address] [address] Caroline Bell LDL CALC NORMAL SEE BELOW Normal [facility] Comment on above: Result Comment: <100 mg/dl OPTIMAL 100 - 129 mg/dl NEAR OR ABOVE OPTIMAL 130 - 159 mg/dl BORDERLINE HIGH 160 - 189 mg/dl HIGH >190 mg/dl VERY HIGH Performed By: #### V ITAD, PSASC #### [facility] [address] [address] [address] Caroline Bell Triglyceride [Mass/Vol] 54 mg/dL Normal <=150 [facility] Comment on above: Performed By: #### V ITAD, PSASC #### [facility] [address] [address] [address] Caroline Bell VLDL CALC 10.8 mg/dL Normal [facility] Comment on above: Performed By: #### V DIDI, PSASC #### [facility] [address] [place] [address] Dr. Caroline Bell PROF 14(COMP METB)on 023 Albumin [Mass/Vol] 3.8 g/dL Normal 3.4-5.0 [facility] Comment on above: Performed By: #### V ITJAVI, PSASC #### [facility] [address] [place] [address] Dr. Caroline Bell Albumin/Globulin [Mass ratio] 0.9 {ratio} Normal [facility] Comment on above: Performed By: #### V DIDI, PSASC #### [facility] [address] [place] [address] Dr. Caroline Bell ALP [Catalytic activity/Vol] 99 U/L Normal 46-116 [facility] Comment on above: Performed By: #### V ITJAVI, PSASC #### [facility] [address] [place] [address] Dr. Caroline Bell ALT [Catalytic activity/Vol] 25 U/L Normal 16-63 [facility] Comment on above: Performed By: #### V ITJAVI, PSASC #### [facility] [address] [place] [address] Dr. Caroline Bell Anion gap [Moles/Vol] 13.2 mmol/L Normal [facility] Comment on above: Performed By: #### V ITJAVI, PSASC #### [facility] [address] [place] [address] Dr. Caroline Bell AST [Catalytic activity/Vol] 18 U/L Normal 15-37 [facility] Comment on above: Performed By: #### V ITAD, PSASC #### [facility] [address] [place] [address] Dr. Caroline Bell Bilirubin [Mass/Vol] 0.5 mg/dL Normal 0.2-1.0 [facility] Comment on above: Performed By: #### V ITAD, PSASC #### [facility] [address] [address] [address] Caroline Bell Calcium [Mass/Vol] 9.3 mg/dL Normal 8.5-10.1 [facility] Comment on above: Performed By: #### V ITAD, PSASC #### [facility] [address] [address] [address] Caroline Bell Chloride [Moles/Vol] 106 mmol/L Normal 98-107 [facility] Comment on above: Performed By: #### V ITAD, PSASC #### [facility] [address] [address] [address] Caroline Bell CO2 [Moles/Vol] 26.1 mmol/L Normal 21.0-32.0 [facility] Comment on above: Performed By: #### V ITAD, PSASC #### [facility] [address] [address] [address] Caroline Bell Creatinine [Mass/Vol] 1.59 mg/dL Critically high 0.70-1.30 [facility] Comment on above: Performed By: #### V ITAD, PSASC #### [facility] [address] [address] [address] Caroline Bell EGFR-AF MICRONESIAN 52 mL/min/1.73m2 Critically low >=60 [facility] Comment on above: Performed By: #### V ITAD, PSASC #### [facility] [address] [address] [address] Caroline Bell EGFR-NON AF MICRONESIAN 43 mL/min/1.73m2 Critically low >=60 [facility] Comment on above: Performed By: #### V ITAD, PSASC #### [facility] [address] [address] [address] Caroline Bell Globulin (S) [Mass/Vol] 4.2 g/dL Normal [facility] Comment on above: Performed By: #### V ITAD, PSASC #### [facility] [address] [address] [address] Caroline Bell Glucose [Mass/Vol] 160 mg/dL Normal [facility] Comment on above: Performed By: #### V ITAD, PSASC #### [facility] [address] [place] [address] Dr. Caroline Bell Performed By: #### P OCGLUC #### [facility] [address] [place] [address] Dr. Caroline Bell Potassium [Moles/Vol] 5.3 mmol/L Critically high 3.5-5.1 [facility] Comment on above: Performed By: #### V ITAD, PSASC #### [facility] [address] [place] [address] Dr. Caroline Bell Protein [Mass/Vol] 8.0 g/dL Normal 6.4-8.2 [facility] Comment on above: Performed By: #### V ITAD, PSASC #### [facility] [address] [place] [address] Dr. Caroline Bell Sodium [Moles/Vol] 140 mmol/L Normal 136-145 [facility] Comment on above: Performed By: #### V ITAD, PSASC #### [facility] [address] [place] [address] Dr. Caroline Bell Urea nitrogen [Mass/Vol] 30.0 mg/dL Critically high 7.0-18.0 [facility] Comment on above: Performed By: #### V ITAD, PSASC #### [facility] [address] [place] [address] Dr. Caroline Bell Urea nitrogen/Creatinine [Mass ratio] 18.9 mg/mg Normal [facility] Comment on above: Performed By: #### V ITAD, PSASC #### [facility] [address] [place] [address] Dr. Caroline Bell TSHon 09-23-2022 TSH 1.076 uIU/mL Normal 0.358-3.740 [facility] Comment on above: Performed By: #### V ITAD, PSASC #### [facility] [address] [place] [address] Dr. Caroline Bell URIC ACID SERUMon 09-23-2022 Urate [Mass/Vol] 5.9 mg/dL Normal 3.5-7.2 [facility] Comment on above: Performed By: #### V DIDI PSAJHON #### [facility] [address] [place] [address] Dr. Caroline Bell VITAMIN D 25 OHon 09-23-2022 VIT D 25-OH 32.7 ng/mL Normal [facility] Comment on above: Performed By: #### Milan TOLBERT PSASC #### [facility] [address] [place] [address] Dr. Caroline Bell VIT D RANGES SEE BELOW Normal [facility] Comment on above: Result Comment: <20 ng/mL Vit D deficient 20 - <30 ng/mL Vit D insufficient 30 - 100 ng/mL Vit D sufficient >100 ng/mL Potential Toxicity Performed By: #### V DIDI PSAJHON #### [facility] [address] [place] [address] Dr. Caroline Bell CBC AUTO DIFFon 06-18-2022 BASO # 0.1 103/ul Normal 0.0-0.1 [facility] Comment on above: Performed By: #### C BC #### [facility] [address] [place] [address] Dr. Caroline Bell Basophils/100 WBC (Bld) 0.4 % Normal 0.2-2.0 [facility] Comment on above: Performed By: #### C BC #### [facility] [address] [place] [address] Dr. Caroline Bell EO # 0.2 103/ul Normal 0.0-0.7 [facility] Comment on above: Performed By: #### C BC #### [facility] [address] [place] [address] Dr. Caroline Bell Eosinophils/100 WBC (Bld) 2.0 % Normal 0.9-7.0 [facility] Comment on above: Performed By: #### C BC #### [facility] [address] [place] [address] Dr. Caroline Bell Erythrocyte distribution width (RBC) [Ratio] 14.5 % Normal 11.0-15.0 [facility] Comment on above: Performed By: #### C BC #### [facility] [address] [address] [address] Caroline Bell Hematocrit (Bld) [Volume fraction] 35.6 % Critically low 42.0-54.0 [facility] Comment on above: Performed By: #### C BC #### [facility] [address] [address] [address] Caroline Bell Hemoglobin (Bld) [Mass/Vol] 11.4 g/dL Critically low 14.0-18.0 [facility] Comment on above: Performed By: #### C BC #### [facility] [address] [place] [address] Dr. Caroline Bell IG # 0.05 10e3/ul Critically high 0.00-0.03 [facility] Comment on above: Performed By: #### C BC #### [facility] [address] [place] [address] Dr. Caroline Bell IG % 0.4 % Normal 0.0-0.5 [facility] Comment on above: Performed By: #### C BC #### [facility] [address] [place] [address] Dr. Caroline Bell LYMPH # 1.4 103/ul Normal 1.2-3.8 [facility] Comment on above: Performed By: #### C BC #### [facility] [address] [place] [address] Dr. Caroline Bell Lymphocytes/100 WBC (Bld) 12.0 % Critically low 20.5-60.0 [facility] Comment on above: Performed By: #### C BC #### [facility] [address] [place] [address] Dr. Caroline Bell MANUAL DIFF REQ NO Normal [facility] Comment on above: Performed By: #### C BC #### [facility] [address] [place] [address] Dr. Caroline Bell MCH (RBC) [Entitic mass] 29.5 pg Normal 25.9-34.0 [facility] Comment on above: Performed By: #### C BC #### [facility] [address] [address] [address] Caroline Bell MCHC (RBC) [Mass/Vol] 32.0 g/dL Normal 29.9-35.2 [facility] Comment on above: Performed By: #### C BC #### [facility] [address] [address] [address] Caroline Bell MCV (RBC) [Entitic vol] 92.2 fL Normal 80.0-94.0 [facility] Comment on above: Performed By: #### C BC #### [facility] [address] [address] [address] Caroline Bell MONO # 0.7 103/ul Normal 0.3-0.8 [facility] Comment on above: Performed By: #### C BC #### [facility] [address] [place] [address] Dr. Caroline Bell Monocytes/100 WBC (Bld) 5.7 % Normal 1.7-12.0 [facility] Comment on above: Performed By: #### C BC #### [facility] [address] [address] [address] Caroline Bell NEUT # 9.6 103/ul Critically high 1.4-6.5 [facility] Comment on above: Performed By: #### C BC #### [facility] [address] [place] [address] Dr. Caroline Bell Neutrophils/100 WBC (Bld) 79.5 % Critically high 43.0-75.0 [facility] Comment on above: Performed By: #### C BC #### [facility] [address] [address] [address] Caroline Bell Platelet mean volume (Bld) [Entitic vol] 10.0 fL Normal 9.5-13.5 [facility] Comment on above: Performed By: #### C BC #### [facility] [address] [address] [address] Caroline Bell PLT 240 103/ul Normal 150-450 [facility] Comment on above: Performed By: #### C BC #### [facility] [address] [place], [place] [address] Dr. Caroline Bell RBC 3.86 106/ul Critically low 4.70-6.10 [facility] Comment on above: Performed By: #### C BC #### [facility] [address] [place], [place] [address] Dr. Caroline Bell WBC 12.0 103/ul Critically high 4.0-11.0 [facility] Comment on above: Performed By: #### C BC #### [facility] [address] [place], [place] [address] CSPINE WO CONon CT CSPINE WO CON EXAM: CT CSPINE [...] as clinically indicated. Electronically authenticated by: MARLENI MAHAJAN Date: 2022-06-18 02:07 Normal [facility] CT HEAD WO CONon 06-18-2022 CT [...] MARLENI SAID Date: 2022-06-18 01:46 Normal [facility] URINE PROFILEon 2 Bilirubin Ql (U) Negative Normal NEGATIVE [facility] Comment on above: Performed By: #### V ITAD, PSASC #### [facility] [address] [place] [address] Dr. Caroline Bell Clarity (U) CLEAR Normal CLEAR [facility] Comment on above: Performed By: #### V ITAD, PSASC #### [facility] [address] [place] [address] Dr. Caroline Bell Color (U) LT. YELLOW Normal YELLOW [facility] Comment on above: Performed By: #### V ITAD, PSASC #### [facility] [address] [place] [address] Dr. Caroline TAYLOR A micrscopic examination will be performed if indicated. Normal [facility] Comment on above: Performed By: #### V ITAD, PSASC #### [facility] [address] [place] [address] Dr. Caroline Bell Glucose Ql (U) Negative Normal NEGATIVE [facility] Comment on above: Performed By: #### V ITAD, PSASC #### [facility] [address] [place] [address] Dr. Caroline Bell Hemoglobin Ql (U) Negative Normal NEGATIVE [facility] Comment on above: Performed By: #### V ITAD, PSASC #### [facility] [address] [place] [address] Dr. Caroline Bell Ketones Ql (U) TRACE Abnormal NEGATIVE [facility] Comment on above: Performed By: #### V ITAD, PSASC #### [facility] [address] [place] [address] Dr. Caroline Bell LEUKOCYTES Negative Normal NEGATIVE [facility] Comment on above: Performed By: #### V ITAD, PSASC #### [facility] [address] [place] [address] Dr. Caroline Bell Nitrite Ql (U) Negative Normal NEGATIVE [facility] Comment on above: Performed By: #### V ITAD, PSASC #### [facility] [address] [place] [address] Dr. Caroline Bell pH (U) 6.0 [pH] Normal 5-9 [facility] Comment on above: Performed By: #### V ITAD, PSASC #### [facility] [address] [place] [address] Dr. Caroline Bell SPEC GRAVITY 1.020 Normal 1.005-<=1.025 [facility] Comment on above: Performed By: #### V ITAD, PSASC #### [facility] [address] [place] [address] Dr. Caroline Bell UA PROTEIN TRACE Normal NEGATIVE/ TRACE [facility] Comment on above: Performed By: #### V ITAD, PSASC #### [facility] [address] [place] [address] Dr. Caroline Bell UR MICRO IND NOT INDICATED Normal [facility] Comment on above: Performed By: #### V ITAD, PSASC #### [facility] [address] [place] [address] Dr. Caroline Bell Urobilinogen Qn (U) 0.2 {Sophia'U}/dL Normal 0.2 - 1. 0 [facility] Comment on above: Performed By: #### V ITAD, PSASC #### [facility] [address] [place] [address] Dr. Caroline Bell LACTATE/LACTIC ACIDon 2021 Lactate [Moles/Vol] 2.9 mmol/L Critically high 0.4-1.9 [facility] Comment on above: Performed By: #### I NSULIN #### [facility] [address] [place] [address] Dr. Caroline Bell Lactate [Moles/Vol] 1.9 mmol/L Normal 0.4-1.9 [facility] Comment on above: Performed By: #### P OCGLUC #### [facility] [address] [place], [place] [id number] Dr. Caroline Bell POINT OF CARE GLUCOSEon 11-0 Glucose [Mass/Vol] 411 mg/dL Critically high 74-106 [facility] Comment on above: Performed By: #### P OCGLUC #### [facility] [address] [address] [address] Caroline Bell Glucose [Mass/Vol] 51 mg/dL Critically low 74-106 [facility] Comment on above: Performed By: #### P OCGLUC #### [facility] [address] [place] [address] Dr. Caroline Bell PROF 14(COMP METB)on 022 Albumin [Mass/Vol] 3.7 g/dL Normal 3.4-5.0 [facility] Comment on above: Performed By: #### V ITAD, PSASC #### [facility] [address] [place] [address] Dr. Caroline Bell Albumin/Globulin [Mass ratio] 0.9 {ratio} Normal [facility] Comment on above: Performed By: #### V ITAD, PSASC #### [facility] [address] [place] [address] Dr. Caroline Bell ALP [Catalytic activity/Vol] 96 U/L Normal 46-116 [facility] Comment on above: Performed By: #### V ITAD, PSASC #### [facility] [address] [place] [address] Dr. Caroline Bell ALT [Catalytic activity/Vol] 16 U/L Normal 16-63 [facility] Comment on above: Performed By: #### V ITAD, PSASC #### [facility] [address] [place] [address] Dr. Caroline Bell Anion gap [Moles/Vol] 14.3 mmol/L Normal [facility] Comment on above: Performed By: #### V ITAD, PSASC #### [facility] [address] [place] [address] Dr. Caroline Bell AST [Catalytic activity/Vol] 15 U/L Normal 15-37 [facility] Comment on above: Performed By: #### V ITAD, PSASC #### [facility] [address] [place] [address] Dr. Caroline Bell Bilirubin [Mass/Vol] 0.3 mg/dL Normal 0.2-1.0 [facility] Comment on above: Performed By: #### V ITAD, PSASC #### [facility] [address] [place] [address] Dr. Caroline Bell Calcium [Mass/Vol] 8.9 mg/dL Normal 8.5-10.1 [facility] Comment on above: Performed By: #### V ITAD, PSASC #### [facility] [address] [place] [address] Dr. Caroline Bell Chloride [Moles/Vol] 109 mmol/L Critically high 98-107 [facility] Comment on above: Performed By: #### V ITAD, PSASC #### [facility] [address] [place] [address] Dr. Caroline Bell CO2 [Moles/Vol] 22.6 mmol/L Normal 21.0-32.0 [facility] Comment on above: Performed By: #### V ITAD, PSASC #### [facility] [address] [place] [address] Dr. Caroline Bell Creatinine [Mass/Vol] 1.89 mg/dL Critically high 0.70-1.30 [facility] Comment on above: Performed By: #### V ITAD, PSASC #### [facility] [address] [place] [address] Dr. Caroline Bell EGFR-AF MICRONESIAN 43 mL/min/1.73m2 Critically low >=60 [facility] Comment on above: Performed By: #### V ITAD, PSASC #### [facility] [address] [place] [address] Dr. Caroline Bell EGFR-NON AF MICRONESIAN 35 mL/min/1.73m2 Critically low >=60 [facility] Comment on above: Performed By: #### V ITAD, PSASC #### [facility] [address] [place] [address] Dr. Caroline Bell Globulin (S) [Mass/Vol] 4.0 g/dL Normal [facility] Comment on above: Performed By: #### V ITJAVI, PSASC #### [facility] [address] [place] [address] Dr. Caroline Bell Glucose [Mass/Vol] 48 mg/dL Critically low 74-106 [facility] Comment on above: Performed By: #### V ITJAVI, PSASC #### [facility] [address] [place] [address] Dr. Caroline Bell Potassium [Moles/Vol] 4.9 mmol/L Normal 3.5-5.1 [facility] Comment on above: Performed By: #### V ITJAVI, PSASC #### [facility] [address] [place] [address] Dr. Caroline Bell Protein [Mass/Vol] 7.7 g/dL Normal 6.4-8.2 [facility] Comment on above: Performed By: #### V ITJAVI, PSASC #### [facility] [address] [place] [address] Dr. Caroline Bell Sodium [Moles/Vol] 141 mmol/L Normal 136-145 [facility] Comment on above: Performed By: #### V ITJAVI, PSASC #### [facility] [address] [place] [address] Dr. Caroline Bell Urea nitrogen [Mass/Vol] 32.0 mg/dL Critically high 7.0-18.0 [facility] Comment on above: Performed By: #### V ITAD, PSASC #### [facility] [address] [place] [address] Dr. Caroline Bell Urea nitrogen/Creatinine [Mass ratio] 16.9 mg/mg Normal [facility] Comment on above: Performed By: #### V ITAD, PSASC #### [facility] [address] [place] [address] Dr. Caroline Bell TROPONIN, HIGH SENSITIVITYon 06-18-2022 HSTROP 10.8 pg/mL Normal 4.0-76.1 [facility] Comment on above: Result Comment: CUT- OFF POINTS HAVE BEEN ESTABLISHED BASED ON THE FOURTH UNIVERSAL DEFINITIONS OF MYOCARDIAL INFARCTION. THE UPPER REFERENCE LIMIT (URL) OF TROPONIN, DEFINED THE 99TH PERCENTILE OF cTnI DISTRIBUTION IN A REFERENCE POPULATION, HAS BEEN CONFIRMED THE DECISION THRESHOLD FOR MN DIAGNOSIS. Performed By: #### V ITJOSE CALDWELL #### [facility] [address] [address] [address] Caroline Bell XR CHEST 1 Von [...] NICK CHAIREZ Date: 2022-06-18 01:49 Normal [facility] BNPon 06-11-2022 Natriuretic peptide B (Bld) [Mass/Vol] 5101.0 pg/mL Critically high <=900.0 [facility] Comment on above: Performed By: #### C MREP #### [facility] [address] [place] [address] Dr. Caroline Bell CBC AUTO DIFFon 06-11-2022 BASO # 0.0 103/ul Normal 0.0-0.1 [facility] Comment on above: Performed By: #### P OCGLUC #### [facility] [address] [address] [address] Caroline Bell Basophils/100 WBC (Bld) 0.4 % Normal 0.2-2.0 [facility] Comment on above: Performed By: #### P OCGLUC #### [facility] [address] [place] [address] Dr. Caroline Bell EO # 0.6 103/ul Normal 0.0-0.7 [facility] Comment on above: Performed By: #### P OCGLUC #### [facility] [address] [address] [address] Caroline Bell Eosinophils/100 WBC (Bld) 6.1 % Normal 0.9-7.0 [facility] Comment on above: Performed By: #### P OCGLUC #### [facility] [address] [place] [address] Dr. Caroline Bell Erythrocyte distribution width (RBC) [Ratio] 14.4 % Normal 11.0-15.0 [facility] Comment on above: Performed By: #### P OCGLUC #### [facility] [address] [place] [address] Dr. Caroline Bell Hematocrit (Bld) [Volume fraction] 27.5 % Critically low 42.0-54.0 [facility] Comment on above: Performed By: #### P OCGLUC #### [facility] [address] [place] [address] Dr. Caroline Bell Hemoglobin (Bld) [Mass/Vol] 8.7 g/dL Critically low 14.0-18.0 [facility] Comment on above: Performed By: #### P OCGLUC #### [facility] [address] [place] [address] Dr. Caroline Bell IG # 0.01 10e3/ul Normal 0.00-0.03 [facility] Comment on above: Performed By: #### P OCGLUC #### [facility] [address] [place] [address] Dr. Caroline Bell IG % 0.1 % Normal 0.0-0.5 [facility] Comment on above: Performed By: #### P OCGLUC #### [facility] [address] [place] [address] Dr. Caroline Bell LYMPH # 2.0 103/ul Normal 1.2-3.8 [facility] Comment on above: Performed By: #### P OCGLUC #### [facility] [address] [place] [address] Dr. Caroline Bell Lymphocytes/100 WBC (Bld) 20.9 % Normal 20.5-60.0 [facility] Comment on above: Performed By: #### P OCGLUC #### [facility] [address] [place] [address] Dr. Caroline Bell MANUAL DIFF REQ NO Normal [facility] Comment on above: Performed By: #### P OCGLUC #### [facility] [address] [place] [address] Dr. Caroline Bell MCH (RBC) [Entitic mass] 29.6 pg Normal 25.9-34.0 [facility] Comment on above: Performed By: #### P OCGLUC #### [facility] [address] [place] [address] Dr. Caroline Bell MCHC (RBC) [Mass/Vol] 31.6 g/dL Normal 29.9-35.2 [facility] Comment on above: Performed By: #### P OCGLUC #### [facility] [address] [place] [address] Dr. Caroline eBll MCV (RBC) [Entitic vol] 93.5 fL Normal 80.0-94.0 [facility] Comment on above: Performed By: #### P OCGLUC #### [facility] [address] [place] [address] Dr. Caroline Bell MONO # 0.7 103/ul Normal 0.3-0.8 [facility] Comment on above: Performed By: #### P OCGLUC #### [facility] [address] [place] [address] Dr. Caroline Bell Monocytes/100 WBC (Bld) 7.7 % Normal 1.7-12.0 [facility] Comment on above: Performed By: #### P OCGLUC #### [facility] [address] [place] [address] Dr. Caroline Bell NEUT # 6.2 103/ul Normal 1.4-6.5 [facility] Comment on above: Performed By: #### P OCGLUC #### [facility] [address] [place] [address] Dr. Caroline Bell Neutrophils/100 WBC (Bld) 64.8 % Normal 43.0-75.0 [facility] Comment on above: Performed By: #### P OCGLUC #### [facility] [address] [place], [place] [address] Dr. Caroline Bell Platelet mean volume (Bld) [Entitic vol] 10.1 fL Normal 9.5-13.5 [facility] Comment on above: Performed By: #### P OCGLUC #### [facility] [address] [place], [place] [address] Dr. Caroline Bell PLT 212 103/ul Normal 150-450 [facility] Comment on above: Performed By: #### P OCGLUC #### [facility] [address] [address] [address] Caroline Bell RBC 2.94 106/ul Critically low 4.70-6.10 [facility] Comment on above: Performed By: #### P OCGLUC #### [facility] [address] [id number] [address] Caroline Bell WBC 9.6 103/ul Normal 4.0-11.0 [facility] Comment on above: Performed By: #### P OCGLUC #### [facility] [address] [address] [address] Caroline Bell ECHOCARDIO M/2D COMPLETEon 1 ECHOCARDIO M/2D COMPLETE Patient: KIM MORENO Exam Date: 06/11/2022 : 1950 Gender:M Ordering : [facility] Admission #: [id number] Family : DR IKER CORRIGAN . Order #: [id number] CLICK HERE TO VIEW EXAM ECHOCARDIOGRAM REPORT [...] Tapia M.D. on 06/19/2022 at 10:32 Normal [facility] POINT OF CARE GLUCOSEon 05-19 Glucose [Mass/Vol] 136 mg/dL Critically high 74-106 [facility] Comment on above: Performed By: #### C MREP #### [facility] [address] [place] [address] Dr. Caroline Bell Glucose [Mass/Vol] 98 mg/dL Normal 74-106 [facility] Comment on above: Performed By: #### P OCGLUC #### [facility] [address] [address] [address] Caroline Bell PROF CHEM 8 (BAS METB)on Anion gap [Moles/Vol] 13.9 mmol/L Normal [facility] Comment on above: Performed By: #### C MREP #### [facility] [address] [place] [address] Dr. Caroline Bell Calcium [Mass/Vol] 7.9 mg/dL Critically low 8.5-10.1 [facility] Comment on above: Performed By: #### C MREP #### [facility] [address] [address] [address] Caroline Bell Chloride [Moles/Vol] 110 mmol/L Critically high 98-107 [facility] Comment on above: Performed By: #### C MREP #### [facility] [address] [place] [address] Dr. Caroline Bell CO2 [Moles/Vol] 22.2 mmol/L Normal 21.0-32.0 [facility] Comment on above: Performed By: #### C MREP #### [facility] [address] [address] [address] Caroline Bell Creatinine [Mass/Vol] 1.64 mg/dL Critically high 0.70-1.30 [facility] Comment on above: Performed By: #### C MREP #### [facility] [address] [address] [address] Caroline Bell EGFR-AF MICRONESIAN 50 mL/min/1.73m2 Critically low >=60 [facility] Comment on above: Performed By: #### C MREP #### [facility] [address] [address] [address] Caroline Bell EGFR-NON AF MICRONESIAN 42 mL/min/1.73m2 Critically low >=60 [facility] Comment on above: Performed By: #### C MREP #### [facility] [address] [address] [address] Caroline Bell Glucose [Mass/Vol] 94 mg/dL Normal 74-106 [facility] Comment on above: Performed By: #### C MREP #### [facility] [address] [address] [address] Caroline Bell Potassium [Moles/Vol] 5.1 mmol/L Normal 3.5-5.1 [facility] Comment on above: Performed By: #### C MREP #### [facility] [address] [address] [address] Caroline Bell Sodium [Moles/Vol] 141 mmol/L Normal 136-145 [facility] Comment on above: Performed By: #### C MREP #### [facility] [address] [address] [address] Caroline Bell Urea nitrogen [Mass/Vol] 30.0 mg/dL Critically high 7.0-18.0 [facility] Comment on above: Performed By: #### C MREP #### [facility] [address] [address] [address] Caroline Bell Urea nitrogen/Creatinine [Mass ratio] 18.3 mg/mg Normal [facility] Comment on above: Performed By: #### C MREP #### [facility] [address] [place] [address] Dr. Caroline Bell PROTIMEon 06-11-2022 INR Coag (PPP) [Relative time] 2.40 {INR} Normal [facility] Comment on above: Performed By: #### V ITAD, PSASC #### [facility] [address] [place] [address] Dr. Caroline Bell INR GUIDELINES SEE BELOW Normal [facility] Comment on above: Result Comment: HANG RED INR: 2.0 - 3.0 CONDITIONS NOT LISTED BELOW 2.5 - 3.5 FOR PROSTHETIC HEART VALVE REPLACEMENT 2.5 - 3.5 RECURRENT THROMBOSIS Performed By: #### V ITAD, PSASC #### [facility] [address] [place] [address] Dr. Caroline Bell PT Coag (PPP) [Time] 24.5 s Critically high 9.0-11.6 [facility] Comment on above: Performed By: #### V ITAD, PSASC #### [facility] [address] [place] [address] Dr. Caroline Bell BNPon 06-10-2022 Natriuretic peptide B (Bld) [Mass/Vol] 7103.0 pg/mL Critically high <=900.0 [facility] Comment on above: Performed By: #### C MREP #### [facility] [address] [place] [address] Dr. Caroline Bell Natriuretic peptide B (Bld) [Mass/Vol] 6731.0 pg/mL Critically high <=900.0 [facility] Comment on above: Performed By: #### I NSULIN #### [facility] [address] [place] [address] Dr. Caroline Bell CARDIAC ANGEL 3-6on 2 CK [Catalytic activity/Vol] 47 U/L Normal 39-308 [facility] Comment on above: Performed By: #### C MREP #### [facility] [address] [place] [address] Dr. Caroline Bell CK.MB [Mass/Vol] 1.59 ng/mL Normal <=3.60 [facility] Comment on above: Performed By: #### C MREP #### [facility] [address] [address] [address] Caroline Bell HSTROP 10.5 pg/mL Normal 4.0-76.1 [facility] Comment on above: Result Comment: CUT- OFF POINTS HAVE BEEN ESTABLISHED BASED ON THE FOURTH UNIVERSAL DEFINITIONS OF MYOCARDIAL INFARCTION. THE UPPER REFERENCE LIMIT (URL) OF TROPONIN, DEFINED THE 99TH PERCENTILE OF cTnI DISTRIBUTION IN A REFERENCE POPULATION, HAS BEEN CONFIRMED THE DECISION THRESHOLD FOR MN DIAGNOSIS. Performed By: #### C MREP #### [facility] [address] [address] [address] Caroline Bell CK [Catalytic activity/Vol] 58 U/L Normal 39-308 [facility] Comment on above: Performed By: #### C MREP #### [facility] [address] [place] [address] Dr. Caroline Bell CK.MB [Mass/Vol] 1.90 ng/mL Normal <=3.60 [facility] Comment on above: Performed By: #### C MREP #### [facility] [address] [place] [address] Dr. Caroline Bell HSTROP 10.8 pg/mL Normal 4.0-76.1 [facility] Comment on above: Result Comment: CUT- OFF POINTS HAVE BEEN ESTABLISHED BASED ON THE FOURTH UNIVERSAL DEFINITIONS OF MYOCARDIAL INFARCTION. THE UPPER REFERENCE LIMIT (URL) OF TROPONIN, DEFINED THE 99TH PERCENTILE OF cTnI DISTRIBUTION IN A REFERENCE POPULATION, HAS BEEN CONFIRMED THE DECISION THRESHOLD FOR MN DIAGNOSIS. Performed By: #### C MREP #### [facility] [address] [address] [address] Caroline Bell CARDIAC ANGEL ADMITon 06-10-2 022 CK [Catalytic activity/Vol] 62 U/L Normal 39-308 [facility] Comment on above: Performed By: #### B LOAN WORKOUT OFFICER, CMADM, BMP #### [facility] [address] [address] [address] Caroline Bell CK.MB [Mass/Vol] 1.70 ng/mL Normal <=3.60 [facility] Comment on above: Performed By: #### B LOAN WORKOUT OFFICER, CMADM, BMP #### [facility] [address] [place] [address] Dr. Caroline Bell HSTROP 10.7 pg/mL Normal 4.0-76.1 [facility] Comment on above: Result Comment: CUT- OFF POINTS HAVE BEEN ESTABLISHED BASED ON THE FOURTH UNIVERSAL DEFINITIONS OF MYOCARDIAL INFARCTION. THE UPPER REFERENCE LIMIT (URL) OF TROPONIN, DEFINED THE 99TH PERCENTILE OF cTnI DISTRIBUTION IN A REFERENCE POPULATION, HAS BEEN CONFIRMED THE DECISION THRESHOLD FOR MN DIAGNOSIS. Performed By: #### B LOAN WORKOUT OFFICER, CMADM, BMP #### [facility] [address] [place] [address] Dr. Caroline Bell ADITHYA 159 ng/mL Critically high 16-96 [facility] Comment on above: Performed By: #### B LOAN WORKOUT OFFICER, CMADM, BMP #### [facility] [address] [place] [address] Dr. Caroline Bell CBC AUTO DIFFon 06-10-2022 BASO # 0.0 103/ul Normal 0.0-0.1 [facility] Comment on above: Performed By: #### V ITAD, PSASC #### [facility] [address] [place] [address] Dr. Caroline Bell Basophils/100 WBC (Bld) 0.3 % Normal 0.2-2.0 [facility] Comment on above: Performed By: #### V ITAD, PSASC #### [facility] [address] [place] [address] Dr. Caroline Bell EO # 0.4 103/ul Normal 0.0-0.7 [facility] Comment on above: Performed By: #### V ITAD, PSASC #### [facility] [address] [place] [address] Dr. Caroline Bell Eosinophils/100 WBC (Bld) 3.0 % Normal 0.9-7.0 [facility] Comment on above: Performed By: #### V ITAD, PSASC #### [facility] [address] [place] [address] Dr. Caroline Bell Erythrocyte distribution width (RBC) [Ratio] 14.4 % Normal 11.0-15.0 [facility] Comment on above: Performed By: #### V ITAD, PSASC #### [facility] [address] [place] [address] Dr. Caroline Bell Hematocrit (Bld) [Volume fraction] 32.5 % Critically low 42.0-54.0 [facility] Comment on above: Performed By: #### V ITAD, PSASC #### [facility] [address] [place] [address] Dr. Caroline Bell Hemoglobin (Bld) [Mass/Vol] 10.4 g/dL Critically low 14.0-18.0 [facility] Comment on above: Performed By: #### V ITAD, PSASC #### [facility] [address] [place] [address] Dr. Caroline Bell IG # 0.04 10e3/ul Critically high 0.00-0.03 [facility] Comment on above: Performed By: #### V ITAD, PSASC #### [facility] [address] [place] [address] Dr. Caroline Bell IG % 0.3 % Normal 0.0-0.5 [facility] Comment on above: Performed By: #### V ITAD, PSASC #### [facility] [address] [place] [address] Dr. Caroline Bell LYMPH # 1.6 103/ul Normal 1.2-3.8 [facility] Comment on above: Performed By: #### V ITAD, PSASC #### [facility] [address] [place] [address] Dr. Caroline Bell Lymphocytes/100 WBC (Bld) 13.4 % Critically low 20.5-60.0 [facility] Comment on above: Performed By: #### V ITAD, PSASC #### [facility] [address] [place] [address] Dr. Caroline Bell MANUAL DIFF REQ NO Normal [facility] Comment on above: Performed By: #### V ITAD, PSASC #### [facility] [address] [place] [address] Dr. Caroline Bell MCH (RBC) [Entitic mass] 30.3 pg Normal 25.9-34.0 [facility] Comment on above: Performed By: #### V ITAD, PSASC #### [facility] [address] [place] [address] Dr. Caroline Bell MCHC (RBC) [Mass/Vol] 32.0 g/dL Normal 29.9-35.2 [facility] Comment on above: Performed By: #### V ITAD, PSASC #### [facility] [address] [place] [address] Dr. Caroline Bell MCV (RBC) [Entitic vol] 94.8 fL Critically high 80.0-94.0 [facility] Comment on above: Performed By: #### V ITAD, PSASC #### [facility] [address] [place] [address] Dr. Caroline Bell MONO # 0.8 103/ul Normal 0.3-0.8 [facility] Comment on above: Performed By: #### V ITAD, PSASC #### [facility] [address] [place] [address] Dr. Caroline Bell Monocytes/100 WBC (Bld) 6.6 % Normal 1.7-12.0 [facility] Comment on above: Performed By: #### V ITAD, PSASC #### [facility] [address] [place] [address] Dr. Caroline Bell NEUT # 9.0 103/ul Critically high 1.4-6.5 [facility] Comment on above: Performed By: #### V ITAD, PSASC #### [facility] [address] [place] [address] Dr. Caroline Bell Neutrophils/100 WBC (Bld) 76.4 % Critically high 43.0-75.0 [facility] Comment on above: Performed By: #### V ITAD, PSASC #### [facility] [address] [place] [address] Dr. Caroline Bell Platelet mean volume (Bld) [Entitic vol] 10.2 fL Normal 9.5-13.5 [facility] Comment on above: Performed By: #### V ITAD, PSASC #### [facility] [address] [place] [address] Dr. Caroline Bell PLT 240 103/ul Normal 150-450 [facility] Comment on above: Performed By: #### V ITAD, PSASC #### [facility] [address] [address] [address] Caroline Bell RBC 3.43 106/ul Critically low 4.70-6.10 [facility] Comment on above: Performed By: #### V ITAD, PSASC #### [facility] [address] [place] [address] Dr. Caroline Bell WBC 11.7 103/ul Critically high 4.0-11.0 [facility] Comment on above: Performed By: #### V ITAD, PSASC #### [facility] [address] [place] [address] Dr. Caroline Bell BASO # 0.1 103/ul Normal 0.0-0.1 [facility] Comment on above: Performed By: #### V ITAD, PSASC #### [facility] [address] [place] [address] Dr. Caroline Bell Basophils/100 WBC (Bld) 0.5 % Normal 0.2-2.0 [facility] Comment on above: Performed By: #### V ITAD, PSASC #### [facility] [address] [place] [address] Dr. Caroline Bell EO # 0.6 103/ul Normal 0.0-0.7 [facility] Comment on above: Performed By: #### V ITAD, PSASC #### [facility] [address] [place] [address] Dr. Caroline Bell Eosinophils/100 WBC (Bld) 4.2 % Normal 0.9-7.0 [facility] Comment on above: Performed By: #### V ITAD, PSASC #### [facility] [address] [place] [address] Dr. Caroline Bell Erythrocyte distribution width (RBC) [Ratio] 14.5 % Normal 11.0-15.0 [facility] Comment on above: Performed By: #### V ITAD, PSASC #### [facility] [address] [place] [address] Dr. Caroline Bell Hematocrit (Bld) [Volume fraction] 35.3 % Critically low 42.0-54.0 [facility] Comment on above: Performed By: #### V ITAD, PSASC #### [facility] [address] [place] [address] Dr. Caroline Bell Hemoglobin (Bld) [Mass/Vol] 11.2 g/dL Critically low 14.0-18.0 [facility] Comment on above: Performed By: #### V ITAD, PSASC #### [facility] [address] [place] [address] Dr. Caroline Bell IG # 0.05 10e3/ul Critically high 0.00-0.03 [facility] Comment on above: Performed By: #### V ITAD, PSASC #### [facility] [address] [place] [address] Dr. Caroline Bell IG % 0.4 % Normal 0.0-0.5 [facility] Comment on above: Performed By: #### V ITAD, PSASC #### [facility] [address] [place] [address] Dr. Caroline Bell LYMPH # 1.8 103/ul Normal 1.2-3.8 [facility] Comment on above: Performed By: #### V ITAD, PSASC #### [facility] [address] [place] [address] Dr. Caroline Bell Lymphocytes/100 WBC (Bld) 13.1 % Critically low 20.5-60.0 [facility] Comment on above: Performed By: #### V ITAD, PSASC #### [facility] [address] [place] [address] Dr. Caroline Bell MANUAL DIFF REQ NO Normal [facility] Comment on above: Performed By: #### V ITAD, PSASC #### [facility] [address] [place] [address] Dr. Caroline Bell MCH (RBC) [Entitic mass] 30.3 pg Normal 25.9-34.0 [facility] Comment on above: Performed By: #### V ITAD, PSASC #### [facility] [address] [place] [address] Dr. Caroline Bell MCHC (RBC) [Mass/Vol] 31.7 g/dL Normal 29.9-35.2 [facility] Comment on above: Performed By: #### V ITAD, PSASC #### [facility] [address] [place] [address] Dr. Caroline Bell MCV (RBC) [Entitic vol] 95.4 fL Critically high 80.0-94.0 [facility] Comment on above: Performed By: #### V ITAD, PSASC #### [facility] [address] [place] [address] Dr. Caroline Bell MONO # 0.8 103/ul Normal 0.3-0.8 [facility] Comment on above: Performed By: #### V ITAD, PSASC #### [facility] [address] [place] [address] Dr. Caroline Bell Monocytes/100 WBC (Bld) 5.6 % Normal 1.7-12.0 [facility] Comment on above: Performed By: #### V ITAD, PSASC #### [facility] [address] [place] [address] Dr. Caroline Bell NEUT # 10.6 103/ul Critically high 1.4-6.5 [facility] Comment on above: Performed By: #### V ITAD, PSASC #### [facility] [address] [place] [address] Dr. Caroline Bell Neutrophils/100 WBC (Bld) 76.2 % Critically high 43.0-75.0 [facility] Comment on above: Performed By: #### V ITAD, PSASC #### [facility] [address] [place] [address] Dr. Caroline Bell Platelet mean volume (Bld) [Entitic vol] 10.0 fL Normal 9.5-13.5 [facility] Comment on above: Performed By: #### V ITAD, PSASC #### [facility] [address] [address] [address] Caroline Bell PLT 252 103/ul Normal 150-450 [facility] Comment on above: Performed By: #### V ITAD, PSASC #### [facility] [address] [address] [address] Caroline Bell RBC 3.70 106/ul Critically low 4.70-6.10 [facility] Comment on above: Performed By: #### V ITAD, PSASC #### [facility] [address] [address] [address] Caroline Bell WBC 13.9 103/ul Critically high 4.0-11.0 [facility] Comment on above: Performed By: #### V ITAD, PSASC #### [facility] [address] [address] [address] ABD/PELVIS WO CONon [...] by: FERNANDO GONZÁLES Date: 2022-06-10 00:47 Normal [facility] CT CHEST WO CONon 06-10-2022 CT [...] FERNANDO GONZÁLES Date: 2022-06-10 00:35 Normal [facility] CT CSPINE WO CONon 2 CT [...] MARI SO Date: 2022-06-10 00:15 Normal [facility] CT HEAD WO CONon 06-10-2022 CT [...] AMEYA TANNER Date: 2022-06-10 00:22 Normal [facility] CT LSPINE WO CONon CT LSPINE WO CON EXAM: CT LSPINE [...] MARI SO Date: 2022-06-10 00:20 Normal [facility] Covid-19 PCR (CVDTB)on 05-19 SARS-CoV-2 (COVID-19) RNA DANILO+probe Ql (Unsp spec) Not detected Normal NOT DETECTED [facility] Comment on above: Result Comment: When [...] for this test is supported by the Community Service Aide of Health and Human Service's declaration that [...] Performed By: #### V ITAD, PSASC #### [facility] [address] [place] [address] Dr. Caroline Bell D-DIMERon 06-10-2022 D-DIMER 5.83 mg/L FEU Critically high <=0.59 [facility] Comment on above: Performed By: #### I NSULIN #### [facility] [address] [place] [address] Dr. Caroline Bell D-DIMER COMMENTS SEE BELOW Normal [facility] Comment on above: Result Comment: Incr eases [...] hospitalization. Performed By: #### I NSULIN #### [facility] [address] [place] [address] Dr. Caroline Bell DIGOXINon 06-10-2022 DIG 1.1 ng/mL Normal 0.9-2.0 [facility] Comment on above: Performed By: #### C MREP #### [facility] [address] [place] [address] Dr. Caroline Bell DIG 1.5 ng/mL Normal 0.9-2.0 [facility] Comment on above: Performed By: #### V ITAD, PSASC #### [facility] [address] [place] [address] Dr. Caroline Bell ER URINE PROFILEon 2 Bilirubin Ql (U) Negative Normal NEGATIVE [facility] Comment on above: Performed By: #### P OCGLUC #### [facility] [address] [place] [address] Dr. Caroline Bell Clarity (U) CLEAR Normal CLEAR [facility] Comment on above: Performed By: #### P OCGLUC #### [facility] [address] [place] [address] Dr. Caroline Bell Color (U) LT. YELLOW Normal YELLOW [facility] Comment on above: Performed By: #### P OCGLUC #### [facility] [address] [address] [address] Caroline TAYLOR A micrscopic examination will be performed if indicated. Normal [facility] Comment on above: Performed By: #### P OCGLUC #### [facility] [address] [place] [address] Dr. Caroline Bell Glucose Ql (U) Negative Normal NEGATIVE [facility] Comment on above: Performed By: #### P OCGLUC #### [facility] [address] [address] [address] Caroline Bell Hemoglobin Ql (U) Negative Normal NEGATIVE [facility] Comment on above: Performed By: #### P OCGLUC #### [facility] [address] [place] [address] Dr. Caroline Bell Ketones Ql (U) Negative Normal NEGATIVE [facility] Comment on above: Performed By: #### P OCGLUC #### [facility] [address] [place] [address] Dr. Caroline Bell LEUKOCYTES Negative Normal NEGATIVE [facility] Comment on above: Performed By: #### P OCGLUC #### [facility] [address] [place] [address] Dr. Caroline Bell Nitrite Ql (U) Negative Normal NEGATIVE [facility] Comment on above: Performed By: #### P OCGLUC #### [facility] [address] [place] [address] Dr. Caroline Bell pH (U) 6.0 [pH] Normal 5-9 [facility] Comment on above: Performed By: #### P OCGLUC #### [facility] [address] [place] [address] Dr. Caroline Bell SPEC GRAVITY 1.025 Normal 1.005-<=1.025 [facility] Comment on above: Performed By: #### P OCGLUC #### [facility] [address] [place] [address] Dr. Caroline Bell UA PROTEIN Negative Normal NEGATIVE/ TRACE [facility] Comment on above: Performed By: #### P OCGLUC #### [facility] [address] [place] [address] Dr. Caroline Bell UR MICRO IND NOT INDICATED Normal [facility] Comment on above: Performed By: #### P OCGLUC #### [facility] [address] [address] [address] Caroline Bell Urobilinogen Qn (U) 0.2 {Sophia'U}/dL Normal 0.2 - 1. 0 [facility] Comment on above: Performed By: #### P OCGLUC #### [facility] [address] [address] [address] Caroline Bell POINT OF CARE GLUCOSEon 10-2 Glucose [Mass/Vol] 121 mg/dL Critically high [address] [place] [address] Comment on above: Performed By: #### P OCGLUC #### [facility] [address] [place] [address] Dr. Caroline Bell Glucose [Mass/Vol] 121 mg/dL Critically high [address] [place] [address] Comment on above: Performed By: #### V ITAD, PSASC #### [facility] [address] [place] [address] Dr. Caroline Bell Glucose [Mass/Vol] 120 mg/dL Critically high [address] [place] [address] Comment on above: Performed By: #### V ITAD, PSASC #### [facility] [address] [place] [address] Dr. Caroline Bell Glucose [Mass/Vol] 131 mg/dL Critically high [address] [place] [address] Comment on above: Performed By: #### V ITAD, PSASC #### [facility] [address] [place] [address] Dr. Caroline Bell Glucose [Mass/Vol] 496 mg/dL Critically high [address] [place] [address] Comment on above: Performed By: #### P OCGLUC #### [facility] [address] [place] [address] Dr. Caroline Bell Glucose [Mass/Vol] 316 mg/dL Critically high [address] [place] [address] Comment on above: Performed By: #### V ITAD, PSASC #### [facility] [address] [place] [address] Dr. Caroline Bell Glucose [Mass/Vol] 240 mg/dL Critically high 74-106 [facility] Comment on above: Performed By: #### P OCGLUC #### [facility] [address] [place] [address] Dr. Caroline Bell Glucose [Mass/Vol] 169 mg/dL Critically high -106 [facility] Comment on above: Performed By: #### C MREP #### [facility] [address] [place] [address] Dr. Caroline Bell Glucose [Mass/Vol] 117 mg/dL Critically high -106 [facility] Comment on above: Performed By: #### I NSULIN #### [facility] [address] [place] [address] Dr. Caroline Bell PROF 14(COMP METB)on 06-10- 022 Albumin [Mass/Vol] 3.0 g/dL Critically low 3.4-5.0 [facility] Comment on above: Performed By: #### C MREP #### [facility] [address] [place] [address] Dr. Caroline Bell Albumin/Globulin [Mass ratio] 0.9 {ratio} [facility] Comment on above: Performed By: #### C MREP #### [facility] [address] [place] [address] Dr. Caroline Bell ALP [Catalytic activity/Vol] 80 U/L Normal 46-116 [facility] Comment on above: Performed By: #### C MREP #### [facility] [address] [place] [address] Dr. Caroline Bell ALT [Catalytic activity/Vol] 13 U/L Critically low 16-63 [facility] Comment on above: Performed By: #### C MREP #### [facility] [address] [place] [address] Dr. Caroline Bell Anion gap [Moles/Vol] 8.0 mmol/L Normal [facility] Comment on above: Performed By: #### C MREP #### [facility] [address] [place] [address] Dr. Caroline Bell AST [Catalytic activity/Vol] 13 U/L Critically low 15-37 [facility] Comment on above: Performed By: #### C MREP #### [facility] [address] [address] [address] Caroline Bell Bilirubin [Mass/Vol] 0.3 mg/dL Normal 0.2-1.0 [facility] Comment on above: Performed By: #### C MREP #### [facility] [address] [address] [address] Caroline Bell Calcium [Mass/Vol] 8.4 mg/dL Critically low 8.5-10.1 [facility] Comment on above: Performed By: #### C MREP #### [facility] [address] [place] [address] Dr. Caroline Bell Chloride [Moles/Vol] 108 mmol/L Critically high 98-107 [facility] Comment on above: Performed By: #### C MREP #### [facility] [address] [place] [address] Dr. Caroline Bell CO2 [Moles/Vol] 28.1 mmol/L Normal 21.0-32.0 [facility] Comment on above: Performed By: #### C MREP #### [facility] [address] [place] [address] Dr. Caroline Bell Creatinine [Mass/Vol] 1.69 mg/dL Critically high 0.70-1.30 [facility] Comment on above: Performed By: #### C MREP #### [facility] [address] [place] [address] Dr. Caroline Bell EGFR-AF MICRONESIAN 49 mL/min/1.73m2 Critically low >=60 [facility] Comment on above: Performed By: #### C MREP #### [facility] [address] [place] [address] Dr. Caroline Bell EGFR-NON AF MICRONESIAN 40 mL/min/1.73m2 Critically low >=60 [facility] Comment on above: Performed By: #### C MREP #### [facility] [address] [place] [address] Dr. Caroline Bell Globulin (S) [Mass/Vol] 3.3 g/dL Normal [facility] Comment on above: Performed By: #### C MREP #### [facility] [address] [address] [address] Caroline Bell Glucose [Mass/Vol] 220 mg/dL Critically high 74-106 [facility] Comment on above: Performed By: #### C MREP #### [facility] [address] [address] [address] Caroline Bell Potassium [Moles/Vol] 5.1 mmol/L Normal 3.5-5.1 [facility] Comment on above: Performed By: #### C MREP #### [facility] [address] [place] [address] Dr. Caroline Bell Protein [Mass/Vol] 6.3 g/dL Critically low 6.4-8.2 [facility] Comment on above: Performed By: #### C MREP #### [facility] [address] [place] [address] Dr. Caroline Bell Sodium [Moles/Vol] 139 mmol/L Normal 136-145 [facility] Comment on above: Performed By: #### C MREP #### [facility] [address] [place] [address] Dr. Caroline Bell Urea nitrogen [Mass/Vol] 32.0 mg/dL Critically high 7.0-18.0 [facility] Comment on above: Performed By: #### C MREP #### [facility] [address] [place] [address] Dr. Caroline Bell Urea nitrogen/Creatinine [Mass ratio] 18.9 mg/mg Normal [facility] Comment on above: Performed By: #### C MREP #### [facility] [address] [address] [address] Caroline Bell PROF CHEM 8 (BAS METB)on Anion gap [Moles/Vol] 14.2 mmol/L Normal [facility] Comment on above: Performed By: #### I NSULIN #### [facility] [address] [address] [address] Caroline Bell Calcium [Mass/Vol] 8.8 mg/dL Normal 8.5-10.1 [facility] Comment on above: Performed By: #### I NSULIN #### [facility] [address] [address] [address] Caroline Bell Chloride [Moles/Vol] 110 mmol/L Critically high 98-107 [facility] Comment on above: Performed By: #### I NSULIN #### [facility] [address] [address] [address] Caroline Bell CO2 [Moles/Vol] 21.7 mmol/L Normal 21.0-32.0 [facility] Comment on above: Performed By: #### I NSULIN #### [facility] [address] [place] [address] Dr. Caroline Bell Creatinine [Mass/Vol] 2.07 mg/dL Critically high 0.70-1.30 [facility] Comment on above: Performed By: #### I NSULIN #### [facility] [address] [address] [address] Caroline Bell EGFR-AF MICRONESIAN 39 mL/min/1.73m2 Critically low >=60 [facility] Comment on above: Performed By: #### I NSULIN #### [facility] [address] [address] [address] Caroline Bell EGFR-NON AF MICRONESIAN 32 mL/min/1.73m2 Critically low >=60 [facility] Comment on above: Performed By: #### I NSULIN #### [facility] [address] [address] [address] Caroline Bell Glucose [Mass/Vol] 126 mg/dL Critically high 74-106 [facility] Comment on above: Performed By: #### I NSULIN #### [facility] [address] [address] [address] Caroline Bell Potassium [Moles/Vol] 4.9 mmol/L Normal 3.5-5.1 [facility] Comment on above: Performed By: #### I NSULIN #### [facility] [address] [address] [address] Caroline Bell Sodium [Moles/Vol] 141 mmol/L Normal 136-145 [facility] Comment on above: Performed By: #### I NSULIN #### [facility] [address] [address] [address] Caroline Bell Urea nitrogen [Mass/Vol] 34.0 mg/dL Critically high 7.0-18.0 [facility] Comment on above: Performed By: #### I NSULIN #### [facility] [address] [place] [address] Dr. Caroline Bell Urea nitrogen/Creatinine [Mass ratio] 16.4 mg/mg Normal [facility] Comment on above: Performed By: #### I NSULIN #### [facility] [address] [place] [address] Dr. Caroline Bell PROTIMEon 06-10-2022 INR Coag (PPP) [Relative time] 1.43 {INR} Normal [facility] Comment on above: Performed By: #### I NSULIN #### [facility] [address] [place] [address] Dr. Caroline Bell INR GUIDELINES SEE BELOW Normal [facility] Comment on above: Result Comment: HANG RED INR: 2.0 - 3.0 CONDITIONS NOT LISTED BELOW 2.5 - 3.5 FOR PROSTHETIC HEART VALVE REPLACEMENT 2.5 - 3.5 RECURRENT THROMBOSIS Performed By: #### I NSULIN #### [facility] [address] [place] [address] Dr. Caroline Bell PT Coag (PPP) [Time] 15.1 s Critically high 9.0-11.6 [facility] Comment on above: Performed By: #### I NSULIN #### [facility] [address] [place] [address] Dr. Caroline Bell PTTon 06-10-2022 aPTT Coag (Bld) [Time] 28.2 s Normal 22.3-36.2 [facility] Comment on above: Performed By: #### I NSULIN #### [facility] [address] [place], [place] [id number] Dr. Caroline Bell T4on 06-10-2022 T4 [Mass/Vol] 4.40 ug/dL Critically low 4.50-12.10 [facility] Comment on above: Performed By: #### V ITJAVI, PSASC #### [facility] [address] [place] [address] Dr. Caroline Bell TSHon 06-10-2022 TSH 0.911 uIU/mL Normal 0.358-3.740 [facility] Comment on above: Performed By: #### P OCGLUC #### [facility] [address] [place] [address] HEAD WO CONon [...] TONY IYER Date: 2022-05-07 07:15 Normal [facility] CBC AUTO DIFFon 05-02-2022 BASO # 0.1 103/ul Normal 0.0-0.1 [facility] Comment on above: Performed By: #### V ITJAVI, PSASC #### [facility] [address] [place] [address] Dr. Caroline Bell Basophils/100 WBC (Bld) 0.5 % Normal 0.2-2.0 [facility] Comment on above: Performed By: #### V ITJAVI, PSASC #### [facility] [address] [place] [address] Dr. Caroline Bell EO # 0.6 103/ul Normal 0.0-0.7 [facility] Comment on above: Performed By: #### V ITAD, PSASC #### [facility] [address] [place] [address] Dr. Caroline Bell Eosinophils/100 WBC (Bld) 4.6 % Normal 0.9-7.0 [facility] Comment on above: Performed By: #### V ITAD, PSASC #### [facility] [address] [place] [address] Dr. Caroline Bell Erythrocyte distribution width (RBC) [Ratio] 14.4 % Normal 11.0-15.0 [facility] Comment on above: Performed By: #### V ITAD, PSASC #### [facility] [address] [place] [address] Dr. Caroline Bell Hematocrit (Bld) [Volume fraction] 34.7 % Critically low 42.0-54.0 [facility] Comment on above: Performed By: #### V ITAD, PSASC #### [facility] [address] [place] [address] Dr. Caroline Bell Hemoglobin (Bld) [Mass/Vol] 11.1 g/dL Critically low 14.0-18.0 [facility] Comment on above: Performed By: #### V ITAD, PSASC #### [facility] [address] [place] [address] Dr. Caroline Bell IG # 0.05 10e3/ul Critically high 0.00-0.03 [facility] Comment on above: Performed By: #### V ITAD, PSASC #### [facility] [address] [place] [address] Dr. Caroline Bell IG % 0.4 % Normal 0.0-0.5 [facility] Comment on above: Performed By: #### V ITAD, PSASC #### [facility] [address] [place] [address] Dr. Caroline Bell LYMPH # 1.8 103/ul Normal 1.2-3.8 [facility] Comment on above: Performed By: #### V ITAD, PSASC #### [facility] [address] [place] [address] Dr. Caroline Bell Lymphocytes/100 WBC (Bld) 13.4 % Critically low 20.5-60.0 [facility] Comment on above: Performed By: #### V ITAD, PSASC #### [facility] [address] [place] [address] Dr. Caroline Bell MANUAL DIFF REQ NO Normal [facility] Comment on above: Performed By: #### V ITAD, PSASC #### [facility] [address] [place] [address] Dr. Caroline Bell MCH (RBC) [Entitic mass] 29.7 pg Normal 25.9-34.0 [facility] Comment on above: Performed By: #### V ITAD, PSASC #### [facility] [address] [place] [address] Dr. Caroline Bell MCHC (RBC) [Mass/Vol] 32.0 g/dL Normal 29.9-35.2 [facility] Comment on above: Performed By: #### V ITAD, PSASC #### [facility] [address] [place] [address] Dr. Caroline Bell MCV (RBC) [Entitic vol] 92.8 fL Normal 80.0-94.0 [facility] Comment on above: Performed By: #### V ITAD, PSASC #### [facility] [address] [place] [address] Dr. Caroline Bell MONO # 0.9 103/ul Critically high 0.3-0.8 [facility] Comment on above: Performed By: #### V ITAD, PSASC #### [facility] [address] [place] [address] Dr. Caroline Bell Monocytes/100 WBC (Bld) 6.8 % Normal 1.7-12.0 [facility] Comment on above: Performed By: #### V ITAD, PSASC #### [facility] [address] [place] [address] Dr. Caroline Bell NEUT # 9.7 103/ul Critically high 1.4-6.5 [facility] Comment on above: Performed By: #### V ITAD, PSASC #### [facility] [address] [place] [address] Dr. Caroline Bell Neutrophils/100 WBC (Bld) 74.3 % Normal 43.0-75.0 [facility] Comment on above: Performed By: #### V ITAD, PSASC #### [facility] [address] [place] [address] Dr. Caroline Bell Platelet mean volume (Bld) [Entitic vol] 10.0 fL Normal 9.5-13.5 [facility] Comment on above: Performed By: #### V ITAD, PSASC #### [facility] [address] [place] [address] Dr. Caroline Bell PLT 296 103/ul Normal 150-450 [facility] Comment on above: Performed By: #### V ITAD, PSASC #### [facility] [address] [place] [address] Dr. Caroline Bell RBC 3.74 106/ul Critically low 4.70-6.10 [facility] Comment on above: Performed By: #### V ITAD, PSASC #### [facility] [address] [place] [address] Dr. Caroline Bell WBC 13.1 103/ul Critically high 4.0-11.0 [facility] Comment on above: Performed By: #### V ITAD, PSASC #### [facility] [address] [place] [address] CSPINE WO CONon [...] TONY IYER Date: 2022-05-02 15:14 Normal [facility] CT HEAD WO CONon 05-02-2022 CT [...] TONY IYER Date: 2022-05-02 15:08 Normal [facility] PROTIMEon 05-02-2022 INR Coag (PPP) [Relative time] 3.49 {INR} Normal [facility] Comment on above: Performed By: #### P OCGLUC #### [facility] [address] [address] [address] Caroline Bell INR GUIDELINES SEE BELOW Normal [facility] Comment on above: Result Comment: HANG RED INR: 2.0 - 3.0 CONDITIONS NOT LISTED BELOW 2.5 - 3.5 FOR PROSTHETIC HEART VALVE REPLACEMENT 2.5 - 3.5 RECURRENT THROMBOSIS Performed By: #### P OCGLUC #### [facility] [address] [address] [address] Caroline Bell PT Coag (PPP) [Time] 34.7 s Critically high 9.0-11.6 [facility] Comment on above: Performed By: #### P OCGLUC #### [facility] [address] [address] [address] Carolnie Bell PTTon 05-02-2022 aPTT Coag (Bld) [Time] 47.0 s Critically high 22.3-36.2 [facility] Comment on above: Performed By: #### P OCGLUC #### [facility] [address] [place], [place] [address] Dr. Caroline Bell Covid-19 PCR ([facility])on 01-16 SARS-CoV-2 (COVID-19) RNA DANILO+probe Ql (Unsp spec) Not detected Normal NOT DETECTED [facility] Comment on above: Result Comment: This test is not yet approved or cleared by the [place] FDA. When there are no FDA-approved or cleared tests available, and other criteria are met, FDA can make tests available under an emergency access mechanism called an Emergency Use Authorization (EUA). The EUA for this test is supported by the [place] of Health and Human Service's (HHS's) declaration [...] SARS-CoV-2. Performed By: #### C MREP #### [facility] [address] [address] [address] Caroline Bell SYMPTOMATIC COVID-19 ANTIGEN on 01-28-2022 EUA Statement SEE BELOW Normal [facility] Comment on above: Result Comment: This test [...] sooner. Performed By: #### I NSULIN #### [facility] [address] [place], [place] [address] Dr. Caroline Bell SARS-CoV-2 (COVID-19) RNA DANILO+probe Ql (Unsp spec) Negative Normal NEGATIVE [facility] Comment on above: Performed By: #### I NSULIN #### [facility] [address] [place], [place] [address] Dr. Caroline Bell Office Visit (Cardiology)on 09-04-2021 [...] signing my name below, I, Ren Rice LPNibjenna, attest that this documentation has been prepared under the direction and in the presence of Dr. Nick Burton DO. All medical record entries made by [...] months continue current medications Chief Complaint KIM MORENO is being seen for a 6 month follow-up of. History of Present Illness Mr. Moreno is a 71-year-old male seen back today [...] History of Complete colonoscopy PROCEDURE DATE [id number] [place] History of Rotator cuff repair History of [...] AT BEDTIME NEEDED. Vitamin D3 50 MCG (2000 UT) Oral TabletTake 1 tablet daily Warfarin Sodium 2 MG Oral Tabletas directed by [facility] Allergies Medication Zithromax TABS Adverse Reaction; Swelling; [...] Recorded: 04Sep2021 08:49AM Heart Rate60, L Radial Pzilwibl777, RUE, Sitting Fpmsrszef56, RUE, Sitting Height5 ft 8 in Eqmqna708 lb BMI Rwrvpzybkp12.84 kg/m2 BSA Calculated2.11 Tobacco Useb) No Fall Screeninga) No falls within the last year Signatures Electronically signed by : Nick Burton DO; Sep 04 2021 9:01AM EST (Author) Normal [facility] Tobacco Screening.on 022 Fall risk assessment a) No falls within the last year [facility] DO Work Phone: Tobacco use status [facility] b) No [facility] [address] DO Work Phone: [facility] CARDIAC STRESS/REST INJE CTIONon 01-25-2021 [facility] CARDIAC STRESS/REST INJECTION Patient Name: KIM MORENO STUDY: MYOCARDIAL PERFUSION STRESS TEST WITH LEXISCAN Performing facility: [facility], [address] [place] [address], [address] Provider: Nick Burton DO, FACC PCP: Dr. Arlene Corrigan Supervising provider: Bao Jane MD, FACC INDICATION: Chest Pain; HISTORY: Gender: M; Age: 70 y/o ; Height: 172.72 cm; Weight: 98.1123399 kg. High Cholesterol; Diabetes; Previous [place]; HTN; Quit smoking 38 years ago. COMPARISON: Previous nuclear testing completed [id number] at [place]. ACCESSION NUMBER(S): [id number]; [id number]; [id number] ORDERING CLINICIAN: NICK BURTON TECHNIQUE: ONE DAY protocol. Stress injection: Date:01-25-21, [...] significant interval changes. Electronically signed by: BAO JANE MD [facility] Vital Signs Date Time Vital Sign Value Performing Clinician Price dubose 12-19-2021 15:14-0400 Diastolic blood pressure 70 mm[Hg] Nick NILL [facility] 12-19-2021 15:14-0400 Heart rate 68 /min Nick NILL [facility] [place] 12-19-2021 15:14-0400 Respiratory rate 16 /min Nick NILL [facility] 12-19-2021 15:14-0400 Systolic blood pressure 116 mm[Hg] Nick NILL [facility] 09-04-2021 08:49-0500 Body height 172.72 cm Iker M Hoy Work Phone: [facility] [address] DO Work Phone: 09-04-2021 08:49-0500 Body mass index (BMI) [Ratio] 32.84 kg/m2 Iker M Hoy Work Phone: [facility] [address] DO Work Phone: 09-04-2021 08:49-0500 Body surface area Derived from formula 2.11 m2 Iker Elva Hoy Work Phone: [facility] [address] DO Work Phone: 09-04-2021 08:49-0500 Body weight 97.98 kg Iker Elva Hoy Work Phone: [facility] [address] DO Work Phone: 09-04-2021 08:49-0500 Diastolic blood pressure 66 mm[Hg] Iker Elva Hoy Work Phone: [facility] [address] DO Work Phone: 09-04-2021 08:49-0500 Heart rate 60 /min Iker Elva Hoy Work Phone: [facility] [address] DO Work Phone: 09-04-2021 08:49-0500 Systolic blood pressure 138 mm[Hg] Iker Elva Hoy Work Phone: [facility] [address] DO Work Phone: Encounters Encounter Date Encounter Type Care Provider Facility Start: 05-04-2024 ambulatory [facility] Start: 03-30-2024 End: 03-30-2024 ambulatory [facility] Start: 03-19-2024 ambulatory [facility] Start: 02-05-2024 ambulatory [facility] Start: 01-21-2024 ambulatory GRETCHEN ABDULLAHI [facility] Start: 01-16-2024 End: 01-16-2024 ambulatory ANALI SMITHS [facility] Start: 12-17-2023 ambulatory [facility] Start: 12-17-2023 ambulatory [facility] Start: 12-17-2023 End: 12-17-2023 ambulatory [facility] Start: 12-16-2023 ambulatory Willie Galloway acility:[facility] Start: 12-02-2023 ambulatory [facility] Start: 12-02-2023 End: 12-02-2023 ambulatory [facility] Start: 11-12-2023 ambulatory [facility] Start: 10-07-2023 End: 10-07-2023 ambulatory [facility] Start: 08-06-2023 ambulatory [facility] Start: 08-06-2023 End: 08-06-2023 ambulatory [facility] Start: 06-24-2023 End: 06-24-2023 ambulatory [facility] Start: 06-20-2023 End: 06-20-2023 ambulatory SKYLER [facility] Start: 04-14-2023 End: 04-15-2023 ambulatory Caleb KHAN Facility:[facility] Start: 04-14-2023 End: 04-14-2023 Patient encounter procedure Caleb KHAN [facility] Start: 12-11-2022 End: 12-12-2022 ambulatory GAVINO HUNTER Facility:[facility] Start: 11-13-2022 End: 11-14-[address] IKER CORRIGAN . Facility:[facility] Start: 10-16-2022 End: 11-15-2022 ambulatory SHAIKH Ankit REYNOLDS Facility:[facility] Start: 09-27-2022 End: 09-28-[address] IKER CORRIGAN . Facility:[facility] Start: 09-23-2022 End: 09-24-[address] IKER CORRIGAN . Facility:[facility] Start: 09-18-2022 End: 10-16-[address] IKER CORRIGAN . Facility:[facility] Start: 08-19-2022 End: 09-18-[address] IKER CORRIGAN . Facility:[facility] Start: 07-18-2022 End: 08-18-[address] IKER CORRIGAN . Facility:[facility] Start: 06-18-2022 End: 07-17-[address] IKER CORRIGAN . Facility:[facility] Start: 06-18-2022 End: 06-18-[address] IKER CORRIGAN . Facility:[facility] Start: 06-10-2022 End: 06-11-[address] IKER CORRIGAN . Facility:[facility] Start: 05-19-2022 End: 06-17-2022 ambulatory SHAIKH Ankit REYNOLDS Facility:[facility] Start: 05-09-[address] IKER CORRIGAN . Facili ty:[facility] Start: 05-06-2022 End: 05-07-[address] IKER CORRIGAN . Facility:[facility] Start: 05-02-2022 End: 05-02-[address] JASON CARVER . Facility:[facility] Start: 04-18-2022 End: 05-18-2022 ambulatory SHAIKH Ankit REYNOLDS Facility:[facility] Start: 03-18-2022 End: 04-17-2022 ambulatory SHAIKH Ankit REYNOLDS Facility:[facility] Start: 02-15-2022 End: 03-15-2022 ambulatory SHAIKH Ankit REYNOLDS Facility:[facility] Start: 01-28-2022 End: 01-28-[address] IKER CORRIGAN . Facility:[facility] Start: 01-16-2022 End: 02-15-2022 ambulatory SHAIKH Ankit REYNOLDS Facility:[facility] Start: 01-15-2022 End: 01-16-[address] CALEB KHAN . Facility:[facility] Start: 12-19-2021 End: 12-19-2021 Patient encounter procedure Nick SIN [facility] Start: 12-17-2021 End: 01-15-2022 ambulatory SHAIKH Ankit REYNOLDS Facility:[facility] Start: 09-04-2021 Office outpatient visit 25 minutes Iker Corrigan Work Phone: [facility] DO Work Phone: Start: 06-01-2021 Rx Renewal [facility] [place] Work Phone: Start: 10-14-2018 Patient encounter procedure Jonnathan Amaya Facility:[id number] Start: 03-05-2017 End: 03-06-2017 Ambulatory DEFAULT PHYSICIAN Facility:[facility] Procedures Date Procedure Procedure Detail Performing Clinician Start: 09-23-[address] KVNG CORRIGAN . Comment on above: Performed By: #### V ITAD, PSASC #### [facility] [address] [place] [address] Dr. Caroline Bell Start: 01-15-[address] KVNG CORRIGAN . Comment on above: Performed By: #### P SAD #### [facility] [address] [address] [address] Caroline Bell Start: 10-08-2016 Cystoscopy Nick [...] H oy Work Phone: Total colonoscopy Iker Corrigan Work Phone: Comment on above: PROCEDURE DATE 2015BELLEVUE; Plan of Treatment Date Care Activity Detail Author Start: 02-26-2022 FUV, Provider: Nick Burton, Status: Pen, Time: 10:45 AM FUV, Provider: Nick Burton, Status: Pen, Time: 10:45 AM [facility] 250 DO Work Phone: Start: 09-04-2021 FUV, Provider: Nick Burton, Status: Pen, Time: 8:45 AM FUV, Provider: Nick Burton, Status: Pen, Time: 8:45 AM [facility] 250A [place] Work Phone: Immunizations Immunization Date Immunization Notes Care Provider Fa cili 07-16-2021 Pfizer-BioNTech COVI D-19 Vacc 30 MCG/0.3ML Intramuscular Suspension Iker Corrigan Work Phone: [place] [address] DO Work Phone: 05-09-2021 influenza, injectable,quadrivalent, preservative free, pediatric Iker Corrigan Work Phone: [facility] 250 DO Work Phone: 02-04-2021 diphtheria, tetanus toxoids and pertussis vaccine Iker Corrigan Work Phone: [facility] 250 DO Work Phone: 11-14-2020 Pfizer-BioNTech COVI D-19 Vacc 30 MCG/0.3ML Intramuscular Suspension Iker Corrigan Work Phone: [facility] 250 DO Work Phone: 10-23-2020 Pfizer-BioNTech COVI D-19 Vacc 30 MCG/0.3ML Intramuscular Suspension Iker Corrigan Work Phone: [facility] 250 DO Work Phone: 10-16-2020 SARS-CoV-2 (COVID-19 ) mRNA BNT-162b2 vax Nick [facility] General Surgery Nidia 05-24-2020 Seasonal trivalent influenza vaccine, adjuvanted, preservative free Iker M Hoy Work Phone: [facility] 250 DO Work Phone: 04-18-2020 influenza virus vacc ine, unspecified formulation Iker M Hoy Work Phone: [facility] 250 DO Work Phone: 05-18-2019 influenza virus vacc ine, unspecified formulation Iker M Hoy Work Phone: [facility] 250 DO Work Phone: 03-25-2019 Seasonal trivalent influenza vaccine, adjuvanted, preservative free Iker M Hoy Work Phone: [facility] 250 DO Work Phone: 09-22-2018 influenza, seasonal, injectable Iker M Hoy Work Phone: [facility] 250 DO Work Phone: 09-22-2018 pneumococcal polysaccharide vaccine, 23 valent Iker M Hoy Work Phone: [facility] 250 DO Work Phone: 07-18-2018 influenza virus vacc ine, unspecified formulation Iker M Hoy Work Phone: [facility] 250 DO Work Phone: 04-05-2018 influenza, injectabl e, quadrivalent, preservative free Iker M Hoy Work Phone: [facility] 250 DO Work Phone: 07-07-2017 pneumococcal conjuga te vaccine, 13 valent Iker M Hoy Work Phone: [facility] 250 DO Work Phone: 03-26-2017 Seasonal trivalent influenza vaccine, adjuvanted, preservative free Iker M Hoy Work Phone: [facility] 250 DO Work Phone: 08-18-2016 pneumococcal polysaccharide vaccine, 23 valent Iker Corrigan Work Phone: [facility] 250 DO Work Phone: Payers Date Payer Category Payer Self-pay [id number] 1958 Private Health Insurance [id number] Self-pay [id number] 1950 Unknown [id number] 2.16. [id number] 1950 Unknown [id number] 2.16.84 0.1.250349.3.579.2.593 1950 Unknown [id number] 2.16.84 0.1.898027.3.579.2.593 1950 Unknown [id number] 2.16.84 0.1.870097.3.579.2.593 1951 Unknown [id number] 2.16.84 0.1.887429.3.579.2.593 1950 Unknown [id number] 2.16.84 0.1.925134.3.579.2.593 1950 Unknown [id number] 2.16.84 0.1.213202.3.579.2.593 1950 Unknown [id number] 2.16.84 0.1.614336.3.579.2.593 1951 Unknown [id number] 2.16.84 0.1.436702.3.579.2.593 1951 Unknown [id number] 2.16.84 0.1.090984.3.579.2.593 1950 Unknown [id number] 2.16.84 0.1.747213.3.579.2.593 1951 Unknown [id number] 2.16.84 0.1.050330.3.579.2.593 1951 Unknown [id number] 2.16.84 0.1.934596.3.579.2.593 1951 Unknown [id number] 2.16.84 0.1.624580.3.579.2.593 1951 Unknown [id number] 2.16.84 0.1.869099.3.579.2.593 1951 Unknown [id number] 2.16.84 0.1.702475.3.579.2.593 1951 Unknown [id number] 2.16.84 0.1.786562.3.579.2.593 1951 Unknown [id number] 2.16.84 0.1.879942.3.579.2.593 1951 Unknown [id number] 2.16.84 0.1.491089.3.579.2.593 1951 Unknown [id number] 2.16.84 0.1.347733.3.579.2.593 1950 Unknown [id number] 2.16.84 0.1.898629.3.579.2.593 1950 Unknown [id number] 2.16.84 0.1.773053.3.579.2.593 1950 Unknown [id number] 2.16.84 0.1.803865.3.579.2.593 1950 Unknown [id number] 2.16.8 40.1.251653.3.579.2.727 Unknown Unknown [id number] Unknown [id number] 2.16.8 40.1.105710.3.579.2.531 Social History Date Type Detail Facility Tobacco smoking stat [facility] Unknown if ever smoked [facility] Start: 1950 Sex Assigned At Male F [facility] No alcohol use No alcohol use [facility] 250 DO Work Phone: Comment on above: QUIT CIGS 1982; 1 CUP COFFEE DAILY, DIET SODA 1 BOTTLE DAILY; Start: 12-19-2021 End: 01-18-2022 Tobacco smoking status Ex-smoker (finding) General Surgery [facility] Tobacco smoking status Never Gener al Surgery [facility] Sex Assigned At Male [facility] Goals Date Patient Goal Desired Activity /State Clinical Notes 01-18-2022 to 03-30-2024 Note Date & Type Note Facility 03-30-2024 Note [facility] Consult Note Reason for visit: Syncope/ Afib 03/30/24 Pt is s/p PVI+post box isolation on 12/17/23. Pt feel better now. Yesenia Almonte reduced amiodarone and metoprolol at last visit. He doesn't think he's taking amiodarone. Denies recurrent syncope but still gets lightheaded at times. Denies bleeding on Eliquis and says his SOB has resolved. 10/07/23 Patient underwent cardioversion to sinus rhythm on 08/06/2023 subsequently he also underwent a loop implant on the same day. Episodes revealed recurrence of A-fib soon after that. He did feel better in SR. Denies chest pain, lightheadedness/syncope, and bleeding on Eliquis. HPI: Kim Moreno is a 73 y.o. year old with [...] Past Medical History: Diagnosis Date A-fib (CMS/HCC) Awareness under anesthesia Bradycardia Diabetes mellitus (CMS/HCC) HLD (hyperlipidemia) Hypertension Obesity BMI 33.91 Syncope PSH: Past Surgical History: Procedure Laterality Date ABLATION OF DYSRHYTHMIC FOCUS CARDIOVERSION N/A 08/06/2023 CHOLECYSTECTOMY MULTIPLE TOOTH EXTRACTIONS ROTATOR CUFF REPAIR SH: Social Determinants of Health Tobacco Use: Medium Risk (01/16/2024) Patient History Smoking Tobacco Use: Former Smokeless Tobacco Use: Never Passive Exposure: Not on file Alcohol Use: Not on file Financial Resource Strain: Not on file Food Insecurity: Not on file Transportation Needs: Not on file Physical Activity: Not on file Stress: Not on file Social Connections: Not on file Intimate Partner Violence: Unknown (10/09/2023) CT Safety & Environment Fear of Current or Ex-Partner: Not on file Emotionally Abused: Not on file Physically Abused: Not on file Sexually Abused: Not on file Physically or Sexually Abused: Not on file Depression: Not on file Housing Stability: Not on file Utilities: Not on file Allergies: Allergies Allergen Reactions Oxycodone-Acetaminophen Hallucinations Zithromax [Azithromycin] Weight: 101kg Visit Vitals BP 114/65 (BP Location: Left arm, Patient Position: Sitting) Pulse 60 Ht 1.727 m (5' 8 ) Wt 101 kg (222 lb) SpO2 94% BMI 33.75 kg/m??? Smoking Status Former BSA 2.2 m??? Meds: Current Outpatient Medications on File [...] (Lantus) 100 unit/mL (3 mL) pen Inject 40 Units under the skin in the morning. metoprolol tartrate (Lopressor) 25 mg tablet Take 0.5 tablets (12.5 mg) by mouth in the morning and at bedtime. 90 tablet 3 nitroglycerin (Nitrostat) 0.[address] 0.4 mg under the tongue every 5 (five) minutes if needed for chest pain. sertraline (Zoloft) 100 mg tablet Take 100 mg by mouth in the morning. simvastatin (Zocor) 20 mg tablet Take 20 mg by mouth at bedtime. tamsulosin (Flomax) 0.4 mg 24 hr capsule Take 0.4 mg by mouth. amiodarone (Pacerone) 100 mg tablet Take 1 tablet (100 mg) by mouth in the morning. (Patient not taking: Reported on 03/30/2024) 90 tablet 3 famotidine (Pepcid) 20 mg tablet Take 1 tablet (20 mg) by mouth in the morning and at bedtime. 60 tablet 0 omeprazole (PriLOSEC) [address] capsule Take 1 capsule (40 mg) by mouth before breakfast. Do not crush or chew. 30 capsule 0 No current facility-administered medications on file prior to visit. ROS: Review of Systems Cardiovascular: Positive for leg swelling ( always ) and palpitations ( very little ). Musculoskeletal: Positive for falls and myalgias. Neurological: Positive for dizziness, light-headedness and loss of balance. All other systems reviewed and are negative. Physical Exam: Telemed Labs: @LABRESULTS@ No results found for: CHOLESTEROL TOTAL , HDL , LDL CALC , LDL DIRECT , TRIGLYCERIDES , TSH , T3 TOTAL , T4 TOTAL , THYROID PEROXIDASE AB , BNP EKG: Encounter Date: 12/17/23 ECG 12 lead Result Value Ventricular Rate 76 Atrial Rate 76 VA Interval 106 QRS DURATION 106 QT Interval 478 QTC CALCULATION(BAZETT) 537 P [employer] -19 R-[employer] -48 T Wave [employer] 29 Impression Sinus rhythm Since previous tracing with Premature atrial complexes Left axis deviation Pulmonary disease pattern Nonspecific ST and T wave abnormality Abnormal ECG When compared with ECG of 17-DEC-2023 07:59, Sinus rhythm has replaced Atrial fibrilla (more content not included)... [facility] 01-16-2024 Note Remains in sinus bra dycardia with PACs today per ECG - HR 57 bpm Continue amiodarone and metoprolol, eliquis for anticoagulation [facility] 01-16-2024 Note 1 episode of near sy ncope since the ablation, therefore amiodarone and metoprolol were decreased in half. Pt is hydrating adequately, denied fluid retention and noted weight loss since last clinic visit. RTC [address] Santillan [facility] 01-16-2024 Note Ecg today Sinus hernando ycardia with PACs HR 57 bpm In light of bradycardia and labile b/p with voiced fatigue, lightheadedness and near syncope about 2 weeks post ablation- I instructed pt to decrease amiodarone to 100 mg daily and metoprolol decrease to 12.5 mg bid- scripts sent and pt and brother voiced understanding to call office or any concerns, syncope, worsening symptoms. RTC [address] [place] [address] 01-16-2024 Note [facility] CARDIOLOGY PROGR ESS NOTE HPI: Kim Moreno is a 73 y.o. male here for S/P recent a fib ablation HPI 73 yo male presents to clinic s/p recent a fib ablation on 12/17/[address] Santillan. Pt presents today with brother for appt. Admits since ablation he has had increased fatigue and states I fall asleep in the chair- and this is not his typical behavior. Reports about 2 weeks after ablation he had lightheadedness/dizziness and near syncope. Denied chest pain, SOB, orthopnea, palpitations, fever or chills. Currently pt was outside weed wacking today without any dizziness, lightheadedness, chest pain or syncope. Reports that he has been hydrating well about 2 L/day. Denied any leg swelling or weight gain- and actually has lost weight (states because he is not going out to eat as much.) Review of Systems Constitutional: Positive for fatigue. Respiratory: Negative. Cardiovascular: Negative. Neurological: Positive for dizziness and light-headedness. Negative for syncope. Near syncope about 1-2 weeks ago All other systems reviewed and are negative. Previous HPI per Dr Santillan 12/02/23 Patient here for H&P prior to afib ablation scheduled for 12/17/[address] Corrigan. Had CTA chest today at [facility]. 10/07/23 Patient underwent cardioversion to sinus rhythm on 08/06/2023 subsequently he also underwent a loop implant on the same day. Episodes revealed recurrence of A-fib soon after that. He did feel better in SR. Denies chest pain, lightheadedness/syncope, and bleeding on Eliquis. HPI: Kim Moreno is a 73 y.o. year old with [...] but gets tired when he exerts himself. Visit Vitals BP 94/54 (BP Location: Right arm, Patient Position: Sitting) Pulse 55 Ht 1.727 m (5' 8 ) Wt 97.5 kg (215 lb) SpO2 97% BMI 32.69 kg/m??? Smoking Status Former BSA 2.16 m??? Allergies Allergen Reactions Oxycodone-Acetaminophen Hallucinations Zithromax [Azithromycin] Medications: Current Outpatient Medications on File Prior to Visit Medication Sig Dispense Refill cetirizine (ZyrTEC) 10 mg tablet Take 10 mg by mouth. Eliquis 5 mg tablet Take 5 mg by mouth in the morning and at bedtime. famotidine (Pepcid) 20 mg tablet Take 1 tablet (20 mg) by mouth in the morning and at bedtime. 60 tablet 0 furosemide (Lasix) 20 mg tablet Take 1 tablet (20 mg) by mouth in the morning. (Patient taking differently: Take 20 mg by mouth every other day.) 90 tablet 3 HumaLOG KwikPen Insulin 100 unit/mL injection 10 Units. insulin glargine (Lantus) 100 unit/mL (3 mL) pen Inject 40 Units under the skin in the morning. nitroglycerin (Nitrostat) 0.[address] 0.4 mg under the tongue every 5 (five) minutes if needed for chest pain. omeprazole (PriLOSEC) [address] capsule Take 1 capsule (40 mg) by mouth before breakfast. Do not crush or chew. 30 capsule 0 sertraline (Zoloft) 100 mg tablet Take 100 mg by mouth in the morning. simvastatin (Zocor) 20 mg tablet Take 20 mg by mouth at bedtime. tamsulosin (Flomax) 0.4 mg 24 hr capsule Take 0.4 mg by mouth. [DISCONTINUED] amiodarone (Pacerone) 200 mg tablet Take 1 tablet (200 mg) by mouth in the morning. 90 tablet 3 [DISCONTINUED] metoprolol tartrate (Lopressor) 50 mg tablet Take 0.5 tablets (25 mg) by mouth in the morning and at bedtime. 30 tablet 0 No current facility-administered medications on file prior to visit. Physical Exam: Constitutional: Appearance: Normal appearance. Without apparent distress HENT: Head: Normocephalic and atraumatic. Nose: Nose normal. Mouth/Throat: Mouth: Mucous membranes are moist. Eyes: Extraocular Movements: Extraocular movements intact. Conjunctiva/sclera: Conjunctivae normal. Neck: Vascular: No JVD. Cardiovascular: Rate and Rhythm: Bradycardia and regular rhythm. Pulses: Dorsalis pedis pulses are 3 on the right side and 3on the left side. Posterior tibial pulses are 3 on the right side and 3 on the left side. Heart sounds: Normal heart sounds, S1 normal and S2 normal. Pulmonary: Effort: Pulmonary effort is normal. Breath sounds: Normal breath sounds. Abdominal: General: Bowel sounds are normal. Palpations: Abdomen is soft. Musculoskeletal: General: Normal range of motion. Cervical back: Normal range of motion. Right lower leg: No edema. Left lower leg: No edema. Skin: General: Skin is warm and dry. Capillary Refill: Capillary refill takes less than 2 seconds. Neurological: General: No focal deficit present. Mental Status: he is alert and oriented to person, place, and time. Psychiatric: Mood and Affect: Mood normal. Behavior: Behavior normal. Thought Content: Thought content normal. Judgment: Judgment normal. (more content not included)... [facility] 01-16-2024 Note Patient here for fol low up afib ablation with Dr. Santillan on 12/17/2023. Thinks he may have had a syncopal episode at home about 1 week after procedure. He was lightheaded leading up to this he says. Had sharp chest pain on Friday, lasting 15-20 minutes. ANDERSON remains unchanged. Denies bleeding on Eliquis. Review of Systems Cardiovascular: Positive for chest pain (1 episode), dyspnea on exertion, irregular heartbeat, leg swelling ( always ), palpitations ( not often ) and syncope. Musculoskeletal: Positive for falls and myalgias. Neurological: Positive for light-headedness. All other systems reviewed and are negative. [facility] 12-17-2023 Note Patient: Kim correa Procedure Summary Date: 12/17/23 Room / Location: [facility] SOAP PRESS FEEDER 1 EP / [facility] (Cath) Anesthesia Start: 0845 Anesthesia Stop: 1338 Procedures: Ablation a-fib paroxysmal JOHANA during EP case Diagnosis: Paroxysmal atrial fibrillation (CMS/HCC) (Paroxysmal atrial fibrillation (CMS/HCC) [I48.0]) Providers: Wesley Santillan MD Responsible Provider: Donell Aragon MD Anesthesia Type: general ASA Status: 3 Anesthesia Type: general Vitals Value Taken Time BP 134/81 12/17/23 1330 Temp 36 ???C (96.8 ???F) 12/17/23 1240 Pulse 66 12/17/23 1337 Resp 10 12/17/23 1337 SpO2 99 % 12/17/23 1337 Vitals shown include unvalidated device data. Anesthesia Post Evaluation Patient location during evaluation: PACU Patient participation: complete - patient participated Level of consciousness: awake Pain management: adequate Airway patency: patent Cardiovascular status: acceptable Respiratory status: acceptable Hydration status: acceptable Patient is hemodynamically stable and is able to be discharged from PACU per anesthesia protocol. There were no known notable events for this encounter. [facility] 12-17-2023 Note ATRIAL FIBRILLATION ABLATION PROCEDURE NOTE DATE OF PROCEDURE: 12/17/2023 PERFORMING PHYSICIAN: Dr. Wesley Santillan CEMENTER MACHINE:MCKAY CONSENT: Patient NAME OF THE PROCEDURE: Pulmonary Vein Isolation and Comprehensive EP study. INDICATIONS FOR PROCEDURE: 1. Persistent atrial fibrillation. FLUROSCOPY: 4.2minutes/57mGy. EBL: 25cc SPECIMEN REMOVED: None PROCEDURES PERFORMED: 1. Sonosite guided venous access as noted below and images stored in PACS. 2. Comprehensive EP study and catheter ablation for persistent atrial fibrillation through the pulmonary vein isolation technique. This includes right atrial recording and pacing, His bundle recording and right ventricular recording and pacing. 3. Intracardiac EP 3D mapping. 4. Intracardiac echocardiogram 5. Left atrial and coronary sinus recording and pacing to assess ablation results. 6. Left heart pressure measurements and LV pacing and recording. 7. Induction of arrhythmia and testing of ablation results using intravenous adenosine infusion. 8. Fluroscopy. INDICATION: 73year old with past medical history of HLD and Dx of Afib who has never been cardioverted for Afib. He complains of syncope in 07/2022 and a repeat one in December. As far as his Afib is concerned, he was first Dx with Afib in 2013. Lives with brother. Able to do regular shopping but gets tired when he exerts himself.He has come for PVI to maintain SR. PROCEDURE NOTE: On the day of presentation, he was noted to be in Afib and so JOHANA was done to rule out BELINDA clot. Risks, benefits and alternatives of the procedure were discussed with the patient and family who agreed to proceed. Please refer to my consult note for details of the discussion and of indications. The patient was prepped and draped following which four venous access was procured on right side as noted below. Ultrasound was used to determine the course and patency of the femoral veins on both sides and they were noted to be patent and the image stored in PACS. After infiltration with 1% lidocaine, 4 venous sheaths were placed in the right as noted below and a radial arterial line was placed by Anesthesia team. RFV: 8Fx3, [employer] ThermoCool SF Bi-Directional over SL1/ Vizigo, SL1: Pentaray, CS Catheter (EZ Steer). 9F: ICE catheter. Following venous access, heparin bolus was given followed by continuous intravenous drip to target ACT around 350. An intracardiac ultrasound catheter was inserted into the right atrium to examine the right atrial anatomy, atrial septum, pulmonary vein anatomy and to monitor for pericardial effusion and guide transseptal access. The LA and RA was mildly dilated. At baseline, there was no pericardial effusion and no BELINDA clot but noted a very prominent Coumadin ridge. Esophagus was mapped using the CARTOSOUND 3D mapping software and noted to be towards the middle towards RIPV. Transeptal access was procured with ICE guidance using a SL-1 sheath and Justin needle. Following this, pentaray catheter was advanced and the multipolar mapping performed of the LA creating a geometry as well as bipolar voltage assessment was made in Afib. After FAM geometry was performed, a 2nd transseptal was performed with an SL1 sheath using a Justin needle. Following transseptal, the SL1 sheath was removed and Vizigo sheath was advanced over which the ablation catheter ST-SF thermocol ablation catheter was advanced. Ablation was then performed. A temperature probe was advanced to the middle of the LA to monitor the temperature. Ablation was performed using 40 zamora for 10-12s in the anterior LA and 5-8seconds in the posterior wall and roof area. After completion of the left sided WACA, no signals were noted in the LSPV or LIPV and entrance block was noted. After this, I proceeded to perform ablation of the right-sided vein. Following right WACA, the veins were isolated. I ensured that on the anterior aspect of right WACA and in scooter area, phrenic capture was ruled out before any ablation was performed. I decided to perform superior roof line ablation and inferior roof line ablation leading to a box isolation. Substrate modification was then performed in the posterior LA. DCCVx 1 and patient converted to SR. LV pacing revealed no left sided accessory pathway. A temperature elevation was noted from a baseline of 34.8 to 36.2C. I then went over to the right atrium and performed CTI ablation. Using ICE, the His and IVC junctions were marked with 3D CARTO mapping software. ICE revealed a small subeustachian pouch. Vizigo sheath was rocael to the right side. Ablation was performed on the CTI line starting at the tricuspid valve aspect. 40W was utilized and I extended the ablation from the TV to the IVC aspect. No reconnection was seen with adenosine. I verified CTI block, the patient did have bidirectional block. Bidirectional block was noted with medial to lateral pacing with a timing of 204ms. Roxana (more content not included)... [facility] 12-17-2023 Note Arterial Line: Date/Time: 12/17/2023 8:00 AM An arterial line was placed Procedure performed using ultrasound guidance.in the pre-op for the following indication(s): continuous blood pressure monitoring and blood sampling needed. A 20 gauge (size), 1 and 3/4 inch (length), Arrow (type) catheter was placed, into the Left radial artery, secured by tape and Tegaderm. Events: patient tolerated procedure well with no complications. Medications Administered Lidocaine (XYLOCAINE) 1 % SubQ, 1 mL Staffing Performed: resident/POURER METAL/CAA Anesthesiologist: Donell Aragon MD Resident/POURER METAL: Luis Eduardo Ch MD Performed by: Luis Eduardo Ch MD Authorized by: Donell Aragon MD [facility] 12-17-2023 Note Airway Date/Time: 12/17/2023 9:10 AM Urgency: elective General Information and Staff Patient location during procedure: [place] Anesthesiologist: Donell Aragon MD Resident/POURER METAL/CAA: Luis Eduardo Ch MD Performed: resident/POURER METAL/CAA Indications and Patient Condition Indications for airway management: anesthesia Spontaneous Ventilation: absent Sedation level: deep Preoxygenated: yes Mask difficulty assessment: 3 - difficult mask (inadequate, unstable or two providers) +/- NMBA Final Airway Details Final airway type: endotracheal airway Successful airway: ETT Cuffed: yes Successful intubation technique: video laryngoscopy Facilitating devices/methods: intubating stylet Endotracheal tube insertion site: oral Blade: Marrero Blade size: #3 ETT size (mm): 7.5 Cormack-Lehane Classification: grade I - full view of glottis Placement verified by: chest auscultation and capnometry Measured from: lips ETT to lips (cm): 22 Number of attempts at approach: 1 Number of other approaches attempted: 0 [facility] 12-16-2023 Note Patient: Kim correa Procedure Information Date/Time: 12/17/23829 Procedure: Ablation a-fib paroxysmal Location: [facility] SO[facility] 1 EP / [facility]Cath[facility] Providers: Wesley Santillan MD Relevant Problems Anesthesia denies anes issues Cardio (+) Atrial fibrillation (CMS/HCC) (+) Chronic congestive heart failure (CMS/HCC) (+) Chronic pulmonary embolism (CMS/HCC) (+) Coronary artery disease (+) Deep vein phlebitis and thrombophlebitis of lower extremity, unspecified laterality (CMS/HCC) (+) Hypertension (+) Nonrheumatic mitral (valve) insufficiency Endo (+) Diabetes mellitus, type 2 (CMS/HCC) /Renal Cr 1.53 (+) Diabetic renal disease (CMS/HCC) (+) Stage 3 chronic kidney disease (CMS/HCC) Neuro/Psych slow speach Pulmonary (+) Chronic obstructive pulmonary disease (CMS/HCC) -Patient took both long acting and short acting insulin this morning. Fasting BG was 62. Half amp of D50 was given; repeat BG was 82 in preop. TTE 09/05/2021 - Normal EF, unable to determine diastolic function, moderate LVH, mild MR Stress Test 01/25/2021 Resting electrocardiogram revealed atrial fibrillation with slow ventricular response. There were no significant ischemic ECG changes, atrial fibrillation continued throughout the test. The patient did not have chest pains/symptoms during procedure. There was a normal recovery phase. Clinical information reviewed: Tobacco Allergies Meds Med Hx Surg Hx Fam Hx Soc Hx Physical Exam Airway Mallampati: II TM distance: >3 FB Neck ROM: full Cardiovascular Rhythm: irregular Rate: normal Dental (+) upper dentures, lower dentures Pulmonary (+) decreased breath sounds Abdominal (+) obese Anesthesia Plan ASA 3 general (Pre induction A-line discussed. Discussed GA/OETT with pt who agrees to proceed.) The patient is not a current smoker. Education provided regarding risk of obstructive sleep apnea. intravenous induction Postoperative administration of opioids is intended. Trial extubation is planned. Anesthetic plan and risks discussed with patient. Use of blood products discussed with patient who consented to blood products. Plan discussed with resident. Additional Equipment Requests Prior to Admission medications Medication Sig Start Date End Date Taking? Authorizing Provider amiodarone (Pacerone) 200 mg tablet Take 1 tablet (200 mg) by mouth in the morning. 08/29/23 08/28/24 Wesley Santillan MD cetirizine (ZyrTEC) 10 mg tablet Take 10 mg by mouth. 12/06/21 Historical Provider, Eliquis 5 mg tablet Take 5 mg by mouth in the morning and at bedtime. 10/30/22 Historical Provider, furosemide (Lasix) 20 mg tablet Take 1 tablet (20 mg) by mouth in the morning. Patient taking differently: Take 20 mg by mouth every other day. 07/02/23 07/01/24 Skyler Randall NP HumaLOG KwikPen Insulin 100 unit/mL injection 10 Units. 09/11/21 Historical Provider, insulin glargine (Lantus) 100 unit/mL (3 mL) pen Inject 40 Units under the skin in the morning. 12/14/19 Historical Provider, metoprolol tartrate (Lopressor) 50 mg tablet Take 0.5 tablets (25 mg) by mouth in the morning and at bedtime. 08/06/23 12/02/23 Wesley Santillan MD nitroglycerin (Nitrostat) 0.[address] 0.4 mg under the tongue every 5 (five) minutes if needed for chest pain. Historical Provider, sertraline (Zoloft) 100 mg tablet Take 100 mg by mouth in the morning. Historical Provider, simvastatin (Zocor) 20 mg tablet Take 20 mg by mouth at bedtime. 07/14/22 Historical Provider, tamsulosin (Flomax) 0.4 mg 24 hr capsule Take 0.4 mg by mouth. 12/14/19 Historical Provider, [facility] 12-02-[address] Electrophysiology Consult Note Reason for visit: Syncope/ Afib 12/02/23 Patient here for H&P prior to afib ablation scheduled for 12/17/[address] Corrigan. Had CTA chest today at [facility]. 10/07/23 Patient underwent cardioversion to sinus rhythm on 08/06/2023 subsequently he also underwent a loop implant on the same day. Episodes revealed recurrence of A-fib soon after that. He did feel better in SR. Denies chest pain, lightheadedness/syncope, and bleeding on Eliquis. HPI: Kim Moreno is a 73 y.o. year old with [...] Connections: Not on file Intimate Partner Violence: Unknown (10/09/2023) CT Safety & Environment Fear of Current or Ex-Partner: Not on file Emotionally Abused: Not on file Physically Abused: Not on file Sexually Abused: Not on file Physically or Sexually Abused: Not on file Depression: Not on file Housing Stability: Not on file Utilities: Not on file Allergies: Allergies Allergen Reactions Oxycodone-Acetaminophen Hallucinations Zithromax [Azithromycin] Weight: 101kg Visit Vitals BP 116/68 (BP Location: Left arm, Patient Position: Sitting) Pulse 71 Ht 1.727 m (5' 8 ) Wt 101 kg (223 lb) SpO2 96% BMI 33.91 kg/m??? Smoking Status Former BSA 2.2 m??? Meds: Current Outpatient Medications on File [...] hr capsule Take 0.4 mg by mouth. Current Facility-Administered Medications on File Prior to Visit Medication Dose Route Frequency Provider Last Rate Last Admin [COMPLETED] iohexol (OMNIPaque) 350 mg iodine/mL injection 100 mL 100 mL intravenous Once in imaging Wesley Santillan MD 100 mL at 12/02/23 1126 ROS: Review of Systems Cardiovascular: Positive for chest pain ( not often ), dyspnea on exertion, leg swelling (minimal) and palpitations ( once in awhile ). Hematologic/Lymphatic: Bruises/bleeds easily. Musculoskeletal: Positive for myalgias. All other systems reviewed and are negative. Physical Exam: Telemed Labs: @LABRESULTS@ No results found for: CHOLESTEROL TOTAL , HDL , LDL CALC , LDL DIRECT , TRIGLYCERIDES , TSH , T3 TOTAL , T4 TOTAL , THYROID PEROXIDASE AB , BNP EKG: Encounter Date: 08/06/23 ECG 12 lead Result Value Ventricular Rate 46 Atrial Rate 46 VA Interval 248 QRS DURATION 104 QT Interval 514 QTC CALCULATION(BAZETT) 449 P [employer] 25 R-[employer] -37 T Wave [employer] 16 Impression Sinus bradycardia with 1st degree [...] maintain sinus rhythm if it that can h (more content not included)... [facility] 10-07-[address] Electrophysiology Consult Note Reason for visit: Syncope/ Afib 10/07/23 Patient underwent cardioversion to sinus rhythm on 08/06/2023 subsequently he also underwent a loop implant on the same day. Episodes revealed recurrence of A-fib soon after that. He did feel better in SR. Denies chest pain, lightheadedness/syncope, and bleeding on Eliquis. HPI: Kim Moreno is a 73 y.o. year old with [...] Value Ventricular Rate 46 Atrial Rate 46 VA Interval 248 QRS DURATION 104 QT Interval 514 QTC CALCULATION(BAZETT) 449 P [employer] 25 R-[employer] -37 T Wave [employer] 16 Impression Sinus bradycardia with 1st degree [...] and vascular complications (more content not included)... [facility] 08-06-2023 Note LOOP IMPLANT PROCEDU RE NOTE DATE OF PROCEDURE: 08/06/2023 PERFORMING PHYSICIAN: Dr. Wesley Santillan CEMENTER MACHINE: MCKAY INDICATIONS FOR PROCEDURE: 1. Syncope CONSENT: [...] the sternum on the left using the [employer] tool. The loop recorder was then injected [...] 2. Do not wet the incision. Wesley Santillan MD Cardiac Electrophysiology. [facility] 08-06-2023 Note DIRECT CARDIOVERSION PROCEDURE NOTE Date: 08/06/2023. Type of procedure: DC Cardioversion. Performed by: Wesley Santillan MD Informed consent: Signed by patient. Indication: [...] Plan: Continue anticoagulation and consider ablation. Wesley Santillan MD Cardiac Electrophysiology [facility] 08-06-2023 Note Patient: Kim correa Procedure Information Date/Time: 08/06/23 1200 Procedure: Cardioversion Location: [facility] / [facility] (Cath) Providers: Wesley Santillan MD Clinical information reviewed: Allergies Meds Physical Exam Airway Mallampati: II TM distance: >3 FB Neck ROM: full Cardiovascular Dental Pulmonary Abdominal Anesthesia Plan ASA 2 CSE Anesthetic plan and risks discussed with patient. Use of blood products discussed with patient who. Additional Equipment Requests [facility] 08-06-2023 Note This report has been cancelled. [facility] 06-24-[address] Electrophysiology Consult Note Reason for visit: Syncope/ Afib Date of Telehealth Visit: 06/24/23 The patient was notified that using 3rd democrat telecommunication application (e.g., [employer]) is not HIPPA compliant and may carry some privacy risks. Yes The visit was conducted [id number] with the use of audio and video [...] this note for specific details. HPI: Kim Moreno is a 73 y.o. year old with [...] @CATH@ Diagnostic Imaging: (more content not included)... [facility] 06-20-2023 Note [place] Electrophysiology Consult Note Reason for visit: new to EP, referred for AF HPI: Kim Moreno is a 73 y.o. year old with [...] 06/20/2023 A-fib controlled VR 12/2022 per elsa technical staff engineer 12/31/2022 After last visit, another 30 day [...] as a new patient while admitted to [facility] for c/o syncope. He was found [...] and Conjunctivae: n (more content not included)... [facility] 05-02-2022 Note PROCEDURE: XR SHOULD ER LT [...] authenticated by: TONY IYER Date: 2022-05-02 15:01 [facility] 01-18-2022 Hospital Discharge instructions Follow Up Care 01/18/2022 09:12:56 With:BILL NARAYANAN, Caleb Wyatt, URL Address: [facility] [address], [place] [phone] When: Unknown [facility] Evaluation + Plan note Future Appointments Appointment Date:01/18/2022 08:30:00 AM Scheduled Provider:Caleb KHAN MD Location:[facility] Appointment Type:URO Office Visit General Surgery [place] Evaluation note No assessment inform ation available [facility] Work Phone: History of Present illness Narrative Mr. Moreno is a 71-year-old male seen back today [...] to return in 6 months for follow-up. [facility] 250 DO Work Phone: Hospital course Narrative No data available for this section [facility] [place] [facility] Discharge instructions No data available for this section General Surgery [place] Progress note No data available for this section [facility] Summary Purpose Family History No Family History [...] AvailableNo Assessments Information Available Chief Complaint KIM MORENO is being seen for a 6 month follow-up of. Additional Source Comments (unrecognized sect ion and content) No Status Records FoundNo Status Records FoundNo Status Records FoundNo Status Records FoundNo Status Records FoundNo Status Records FoundNo Status Records FoundNo Status Records Found INFORMATION SOURCE (unrecogn ized section and content) DATE CREATED AUTHOR 02/11/2018 [facility] DATE CREATED AUTHOR AUTHOR'S ORGANIZ ATION 10/29/2018 [facility] DATE CREATED AUTHOR AUTHOR'S ORGANIZ ATION 01/28/2021 [facility] DATE CREATED AUTHOR AUTHOR'S ORGANIZ ATION 09/04/2021 [employer] DATE CREATED AUTHOR AUTHOR'S ORGANIZ ATION 12/15/2022 [facility] DATE CREATED AUTHOR AUTHOR'S ORGANIZ ATION 04/15/2023 [facility] DATE CREATED AUTHOR AUTHOR'S ORGANIZ ATION 02/18/2024 [facility] DATE CREATED AUTHOR AUTHOR'S ORGANIZ ATION 05/06/2024 [facility] Patient Care team informatio n (unrecognized section and content) Personnel Name: Iker Corrigan MD Address: Address: [address] [place] [address] Goals (unrecognized section and content) Goals may [...] BE BASED ON THE PRIMARY CLINICAL RECORDS. [facility] [employer] [facility]. provides no warranty or guarantee of the accuracy or completeness of information in this document.
[2024-05-12 07:44] LABS: Basophils Absolute Auto 0.1 10^3/uL (0.0-0.1); Basophils Percent Auto 0.9 % (0.2-2.0); Eosinophils Absolute Auto 0.5 10^3/uL (0.0-0.7); Eosinophils Percent Auto 5.1 % (0.9-7.0); Hematocrit 36.5 % (42.0-54.0); Immature Granulocytes Abs Auto 0.03 10^3/uL (0.00-0.03); Immature Granulocytes Pct Auto 0.3 % (0.0-0.5); Lymphocytes Absolute Auto 1.8 10^3/uL (1.2-3.8); Lymphocytes Percent Auto 19.5 % (20.5-60.0); Mean Corpuscular HGB Conc 32.9 g/dL (29.9-35.2); Mean Corpuscular Hemoglobin 30.8 pg (25.9-34.0); Mean Corpuscular Volume 93.8 fL (80.0-94.0); Mean Platelet Volume 10.3 fL (9.5-13.5); Monocytes Absolute Auto 0.7 10^3/uL (0.3-0.8); Neutrophils Absolute Auto 6.2 10^3/uL (1.4-6.5); Neutrophils Percent Auto 67.2 % (43.0-75.0); Platelet Count 209 10^3/uL (150-450); Red Blood Count 3.89 10^6/uL (4.70-6.10); White Blood Count 9.3 10^3/uL (4.0-11.0)
[2024-05-12 08:50] LABS: Alanine Aminotransferase 20 U/L (16-63); Albumin Globulin Ratio 0.8; Albumin Level 3.2 g/dL (3.4-5.0); Alkaline Phosphatase 108 U/L (46-116); Anion Gap 12.2; Aspartate Amino Transferase 24 U/L (15-37); BUN Creatinine Ratio 16.3; Bilirubin Total 0.4 mg/dL (0.2-1.0); Calcium 8.8 mg/dL (8.5-10.1); Carbon Dioxide 25.3 mmol/L (21.0-32.0); Chloride 106 mmol/L (98-107); Chol HDL Ratio 2.3; Cholesterol 124 mg/dL (<=200); Estimated GFR (African America 48 (>=60); Estimated GFR (Non-African Ame 39 (>=60); Glucose 116 mg/dL (74-106); HDL Cholesterol 53 mg/dL (40-60); Potassium 4.5 mmol/L (3.5-5.1); Sodium 139 mmol/L (136-145); Total Protein 7.2 g/dL (6.4-8.2); Triglycerides 75 mg/dL (<=150)
[2024-05-12 10:12] LABS: Free T4 0.97 ng/dL (0.76-1.46)
[2024-05-12 10:20] LABS: Prostate Specific Antigen Scrn 0.66 ng/mL (<=4.00)
== END 2024-05-12 07:12 | disposition home or self-care (01) ==
LOC: LAB 07:12
PROVIDERS: PCP Family Medicine; Visit Provider Family Medicine
DX: R53.83 Other fatigue (principal); Z12.5 Encounter for screening for malignant neoplasm of prostate; E78.5 Hyperlipidemia, unspecified
CPT/HCPCS: 36415; 80053; 80061; 84439; 84443; 85025; G0103

== ENCOUNTER 2024-09-29 11:53 | Day surgery (SDC) | payer OTHER, SELFPAY ==
--- NOTE | 2024-09-29 | OP_ITS ---
OPERATION DATE: 09/29/2024 PREOPERATIVE DIAGNOSIS: Changing skin lesions of the right forearm x2. POSTOPERATIVE DIAGNOSIS: Changing skin lesions of the right forearm x2. PROCEDURE: Excisional biopsy changing lesions of the right forearm x2. SURGEON: Festus Angel M.D. ANESTHESIA: Local with 0.5% Marcaine plain. ESTIMATED BLOOD LOSS: Less than 5 mL. DIMENSIONS: Total length of the excision of the medial lesion was 1.5 cm. The lateral lesion was 1 cm. INDICATIONS AND CONSENT: Patient is a 74-year-old male with a history of enlarging, irritated, keratotic lesions of the right forearm. Indications, risks, benefits, alternatives of proceeding with excisional biopsy for definitive diagnosis and treatment were explained extensively to the patient, including the risks of bleeding, infection, scarring, pain, recurrence or need for further surgery. All of his questions were answered. Informed consent was obtained. PROCEDURE: Patient brought to the operating room, placed in the supine position. Area was prepped and draped in the usual sterile fashion. The skin overlying and underneath the lesions was anesthetized with 0.5% Marcaine plain. The incisions were then excised in elliptical fashion down to subcutaneous fat. The medial lesion was 1.5 cm and the total length of the lateral lesion 1 cm. The incisions were then closed with 4-0 nylon simple and mattress sutures. There was good hemostasis. Sterile pressure dressing was applied with 4 x 4?s and a Coban wrap. Patient tolerated procedure well, was discharged back to recovery area and then to home in good condition. CC: Shanice Esposito
--- OUTSIDE RECORDS SUMMARY | 2024-09-29 12:11 | XMS_ITS | CCD ---
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 Name Role Phone PHYSICIAN, DEFAULT Unavailable Unavailable PHYSICIAN, DEFAULT Unavailable Unavailable Jonnathan Amaya Attending Unavailable Iker Corrigan Primary Care Unavailable Iker Corrigan Unavailable Unavailable Unavailable Iker Corrigan Primary Care Physician [phone] SHEKH[address] ., DR DONG Primary Care Unavailable [...] Attending Unavailable SHAIKH Ankit REYNOLDS Admitting Unavailable Nick SIN Attending Unavailable Willie Vargas Attending Unavailab Willie Marinelli Admitting Unavailab Iker Ziegler Primary Care Unavailable JACQUE, WESLEY Referring Unavailable JACQUE, WESLEY Admitting Unavailable JACQUE, WESLEY Attending Unavailable JACQUE, WESLEY Referring Unavailable JACQUE, WESLEY Referring Unavailable JACQUE, WESLEY Referring Unavailable KAYLEN, GRETCHEN Referring Unavailable JACQUE, WESLEY Referring Unavailable JACQUE, WESLEY Referring Unavailable JACQUE, WESLEY Referring Unavailable JACQUE, WESLEY Referring Unavailable JACQUE, WESLEY Attending Unavailable JACQUE, WESLEY Attending Unavailable KAYLEN, GRETCHEN Referring Unavailable JACQUE, WESLEY Attending Unavailable JACQUE, WESLEY Referring Unavailable JACQUE, WESLEY Referring Unavailable JACQUE, WESLEY Referring Unavailable JACQUE, WESLEY Referring Unavailable JACQUE, WESLEY Referring Unavailable JACQUE, WESLEY Referring Unavailable JACQUE, WESLEY Referring Unavailable GAGE, ANALI Attending Unavailable JACQUE, WESLEY Referring Unavailable Unavailable Unavailable Unavailable Allergies Allergy Classification Reported Allergen(s) Allergy Type Date of Onset Reaction(s) Facility (5 sources) Azithromycin; Translations: [Zithromax TABS] Drug Allergy Lip swelling (finding) [place] [id number] Work Phone: (4 sources) Acetaminophen / oxyCODONE; Translations: [acetaminophen-ox ycodone] Drug Allergy 8 Hallucinations (finding) [facility] [place] (2 sources) Azithromycin; Translations: [Zithromax] Drug Allergy [address] [facility] Repository (3 sources) Azithromycin; Translations: [azithromycin] Drug Allergy 1 Swelling of Lip/Tongue/Throat [facility] (1 source) Acetaminophen / oxyCODONE; Translations: [OXYCODONE-ACETAM INOPHEN] Drug Allergy 8 [facility] Repository Medications Current Medications Medication Drug Class(es) Dates Sig (Normalized) Sig (Original) apixaban 5 mg oral tablet (1 source) Factor Xa Inhibitor Start: 08-27-2024 take 1 tablet by mouth twice daily Eliquis 5 mg oral tablet 5 mg = 1 tab(s), Oral, BID, Refills(s) 0 Start Date: 08/27/24 Status: Ordered cetirizine hydrochloride 10 mg oral tablet (2 [...] 90 Refills: 3 Ordered: 04-Sep-2021 DO Active ferrous sulfate 325 mg oral tablet (1 source) Start: 08-27-2024 take 1 tablet by mouth twice daily ferrous sulfate 325 mg Tab 325 mg = 1 tab(s), Oral, BID, Refills(s) 0 Start Date: 08/27/24 Status: Ordered furosemide 20 mg oral tablet (1 source) Loop Diuretic Start: 08-27-2024 take 1 tablet by mouth once daily Lasix 20 mg Tab 20 mg = 1 tab(s), Oral, Daily, Refills(s) 0 Start Date: 08/27/24 Status: Ordered Humalog KwikPen (3 sources) Start: 12-06-2021 Humalog KwikPe n 10 unit(s), SubCutaneous, TIDAC, Refills(s) 0 Start Date: 12/06/21 Status: Ordered Start: 12-06-2021 Humalog KwikPe n 15 unit(s), SubCutaneous, Refills(s) 0 Start Date: 12/06/21 Status: Ordered insulin glargine 100 unt/ml injectable solution (5 sources) Insulin Analog Start: 06-13-2021 Insulin Glargi ne (Lantus U-100 Insulin) 100 unit/mL solution Active 0 .ROUTE .COMPLEX June 13, 2021 12:00am 40-60 at night depending on blood sugar Start: 12-14-2019 inject 40 [IU] by jeffries bcutaneous injection once daily at bedtime Lantus 40 unit(s), SubCutaneous, Once a day (at bedtime) Start Date: 12/14/19 Status: Ordered Start: 12-14-2019 inject 60 [IU] by jeffries [...] Active metoprolol tartrate 50 mg oral tablet (7 sources) beta-Adrenergic Jose Start: 12-06-2021 Metopr olol tartrate 50 mg Tab 25 mg = 0.5 tab(s), Oral, BID, Refills(s) 0 Start Date: 12/06/21 Status: Ordered Start: 10-14-2018 take 1 tablet by lou th twice daily Metoprolol tartrate 50 mg Tab 50 mg = 1 tab(s), Oral, BID, Refills(s) 0 Start Date: 12/06/21 Status: Ordered take 1 tablet by lou th once [...] 2021 12:00am sertraline 100 mg oral tablet (5 sources) Serotonin Reuptake Inhibitor Start: 06-20-2021 take 1 tablet by mouth once daily Zoloft 100 mg Tab 100 mg = 1 tab(s), Oral, Daily, as directed, Refills(s) 0 Start Date: 12/06/21 Status: Ordered simvastatin 20 mg oral tablet (7 sources) HMG-CoA Reductase Inhibitor Start: 10-14-2018 take 20 mg by mouth once daily at bedtime simvastatin 20 mg, Oral, Once a day (at bedtime) Start Date: 12/14/19 Status: Ordered tamsulosin hydrochloride 0.4 mg oral capsule (4 sources) alpha-Adrenergic Jose Start: 12-14-2019 take 1 [...] 2 MG Oral Table[facility] [place] [facility] Quantity: 0 Refills: 0 Ordered: [...] Date Documented Da te Episodic/Chronic Anxiety disorders (6 sources) Posttraumatic stress disorder; Translations: [Anxiety disorder, unspecified] Onset: 06-13-2022 12-14-2019 Chronic Cardiac dysrhythmias (10 sources) Chronic atrial fibrillation; Translations: [Atrial fibrillation] Onset: 06-19-2022 12-14-2019 Chronic Chronic kidney disease (3 sources) Chronic kidney disease stage 3 12-06-2021 Chronic Chronic kidney disease (2 sources) Chronic kidney disease; Translations: [Chronic kidney disease, stage 3a] Onset: 12-31-2022 Chronic obstructive pulmonary disease and bronchiectasis (8 sources) Chronic obstructive lung disease; Translations: [Chronic obstructive pulmonary disease, unspecified] Onset: 01-28-2022 12-14-2019 Chronic Congestive heart failure; nonhypertensive (9 sources) Congestive heart failure; Translations: [Heart failure, unspecified] Onset: 09-25-2022 12-06-2021 Chronic Coronary atherosclerosis and other heart disease (7 sources) Coronary arteriosclerosis; Translations: [History of myocardial infarction] Onset: 09-25-2022 12-14-2019 Chronic Delirium, dementia, and amnestic and other cognitive disorders (1 source) Dementia 08-27-2024 Chronic Diabetes mellitus with complications (4 sources) Type 2 diabetes mellitus with hypoglycemia without coma; Translations: [TYP 2 DM W/HYPOGLYCEMIA W/O COMA] Onset: 06-18-2022 Chronic Diabetes mellitus without complication (6 sources) Diabetes mellitus; Translations: [Diabetes mellitus without [...] Onset: 06-13-2022 Chronic Disorders of lipid metabolism (6 sources) Hyperlipidemia; Translations: [Other and unspecified hyperlipidemia] Onset: 09-25-2022 12-14-2019 Chronic Diverticulosis and diverticulitis (1 source) Diverticulosis of intestine, part unspecified, without perforation or abscess without bleeding; Translations: [DVRTCLOS PRT UNS NO PERF/ABSC NO BL] Onset: 05-03-2022 Chronic Essential hypertension (6 sources) Benign essential hypertension; Translations: [Benign essential hypertension] Onset: 06-19-2022 12-14-2019 Chronic Fluid and electrolyte disorders (2 sources) Hyperkalemia 12-06-2021 Episodic Genitourinary symptoms and ill-defined conditions (6 sources) Microscopic hematuria; Translations: [Nocturia] 12-14-2019 Episodic Heart valve disorders (2 sources) Mitral valve regurgitation; Translations: [Mitral valve disorders] 08-27-2024 Chronic Hyperplasia of prostate (7 sources) Benign prostatic hypertrophy with outflow obstruction; Translations: [Benign prostatic hyperplasia with lower urinary tract symptoms] Onset: 01-15-2022 01-17-2020 Chronic Hypertension with complications and secondary hypertension (5 sources) Hypertensive heart disease with heart failure; Translations: [HTN HEART DISEASE W/HEART FAIL] Onset: 09-25-2022 Chronic Mood disorders (4 sources) Depressive disorder; Translations: [Depression] 12-14-2019 Chronic Neoplasms of unspecified nature or uncertain behavior (2 sources) Neoplasm of uncertain behavior of skin; Translations: [Neoplasm of uncertain behavior of skin] Onset: 09-08-2024 Episodic Nutritional deficiencies (4 sources) Vitamin D deficiency, unspecified; Translations: [VITAMIN D DEFICIENCY UNSPECIFIED] Onset: 09-23-2022 Chronic Nutritional deficiencies (1 source) Iron deficiency; Translations: [IRON DEFICIENCY] Onset: 09-25-2022 Episodic Osteoarthritis (2 sources) Arthritis 12-14-2019 Chronic Other aftercare (1 source) Drug therapy finding; Translations: [Long-term (current) use of other medications] Episodic Other aftercare (3 sources) Long-term current use of anticoagulant 01-17-2020 Episodic Other aftercare (5 sources) Encounter for therapeutic drug level monitoring; Translations: [ENC THERAPEUTC DRUG LEVL MONITORING] Onset: 01-17-2022 Episodic Other aftercare (1 source) ferry terminal agent (current) use of anticoagulants; Translations: [GYNECOLOGIST CURRNT USE ANTICOAGULANTS] Onset: 11-18-2022 Episodic Other and ill-defined heart disease (1 source) Cardiomegaly 08-27-2024 Chronic Other circulatory disease (1 source) Elevated blood pressure; Translations: [Elevated blood-pressure reading, without diagnosis of hypertension] 06-13-2021 Episodic Other injuries and conditions due to external causes (2 sources) Injury of head 12-14-2019 Episodic Other nervous system disorders (3 sources) H/O: migraine 12-14-2019 Episodic Other nutritional; endocrine; and metabolic disorders (1 source) Obesity; Translations: [Obesity, unspecified] Chronic Other nutritional; endocrine; and metabolic disorders (4 sources) Body mass index 30+ - obesity [...] nutritional; endocrine; and metabolic disorders (1 source) Obesity caused by energy imbalance 09-08-2024 Chronic Other nutritional; endocrine; and metabolic disorders (1 source) Overweight; Translations: [OVERWEIGHT] Onset: 09-25-2022 Episodic Other screening for suspected conditions (not mental disorders or infectious disease) (2 sources) Other specified abnormal findings of blood chemistry; Translations: [Encounter for screening for malignant neoplasm of prostate] Onset: 09-25-2022 Episodic Other skin disorders (4 sources) Actinic keratosis; Translations: [Actinic keratosis] Onset: 12-19-2021 Episodic Other upper respiratory disease (1 source) Allergic rhinitis 08-27-2024 Chronic Phlebitis; thrombophlebitis and thromboembolism (13 sources) Deep venous thrombosis of lower extremity; Translations: [H/O: Deep vein thrombosis] Onset: 12-17-2021 12-14-2019 Episodic Pulmonary heart disease (3 sources) Chronic pulmonary embolism 12-06-2021 Chronic Residual codes; unclassified (3 sources) Dependent edema 12-06-2021 Episodic Residual codes; unclassified (5 sources) Family history of prostate cancer 01-17-2020 Episodic Residual codes; unclassified (4 sources) Edema, unspecified; Translations: [EDEMA UNSPECIFIED] Onset: 11-13-2022 Episodic Suicide and intentional self-inflicted injury (1 source) Suicidal thoughts; Translations: [Suicidal ideations] 06-13-2021 Episodic Unclassified (3 sources) Finding of sensation of bladder 12-14-2019 Unclassified (1 source) CONTACT W/AND (SUSP) EXPOS COVID-19; Translations: [CONTACT W/AND (SUSP) EXPOS COVID-19] Onset: 06-13-2022 Unclassified (2 sources) Other persistent atrial fibrillation; Translations: [Other persistent atrial fibrillation] Onset: 10-10-2023 Past or Other Problems Problem Classification Problem [...] Other half-way (current) drug therapy; Translations: [OTH CORRECTION CURRENT DRUG THERAPY] Onset: 06-19-2022 Episodic Other aftercare (1 source) snf (current) use of insulin; Translations: [GYNECOLOGIST CURRENT USE OF INSULIN] Onset: 06-19-2022 Episodic Other aftercare (1 source) snf (current) use of oral hypoglycemic drugs; Translations: [GYNECOLOGIST USE ORAL HYPOGLYCEMIC DX] Onset: 06-19-2022 Episodic [...] Test Name Value Interpretation Reference Range Facility Ambulatory Visit Summaryon 0 09-08-2024 Ambulatory Visit Summary Ambulatory Visit Summary KIM MORENO DOB:1950 Visit Date:09/08/2024 Ambulatory Visit Instructions Your Care Team Attending Physician - MERRICK NARAYANAN, Nick Wyatt Primary Care Physician - Iker Corrigan MD This Is Your Medications List apixaban (Eliquis 5 mg oral tablet) ferrous sulfate (ferrous sulfate 325 mg Tab) furosemide (Lasix 20 mg Tab) insulin glargine (Lantus) insulin lispro (Humalog KwikPen) metoprolol (Metoprolol tartrate 50 mg Tab) sertraline (Zoloft 100 mg Tab) simvastatin tamsulosin (tamsulosin 0.4 mg Cap) Procedures Performed Cardioversion (10/07/2023), Cystoscopy (10/08/2016), Arthroscopy of shoulder, Cataract extraction, Cholecystectomy, Colonoscopy, Implantation of insertable loop recorder, Insertion of inferior vena caval filter. Discharge Vitals Heart Rate (Peripheral) 72 Respiratory Rate 16 Blood Pressure 116/74 Height 172.72 cm Height 68 in Weight 103.6 kg Weight 228.399 lb BMI 34.73 Medications What How Much When Instructions Unchanged apixaban (Eliquis 5 mg oral tablet) 1 Tablets By Mouth 2 times a day Unchanged ferrous sulfate (ferrous sulfate 325 mg Tab) 1 Tablets By Mouth 2 times a day Unchanged furosemide (Lasix 20 mg Tab) 1 Tablets By Mouth Every day Unchanged insulin glargine (Lantus) 40 Units Subcutaneous Once a day (at bedtime) Unchanged insulin lispro (Humalog KwikPen) 10 Units Subcutaneous Before meals Unchanged metoprolol (Metoprolol tartrate 50 mg Tab) 0.5 Tablets By Mouth 2 times a day Unchanged sertraline (Zoloft 100 mg Tab) 1 Tablets By Mouth Every day as directed Unchanged simvastatin 20 Milligram By Mouth Once a day (at bedtime) Unchanged tamsulosin (tamsulosin 0.4 mg Cap) 1 Capsules By Mouth Every day Allergies Zithromax (Swelling of both lips) acetaminophen-oxycodon e (Hallucinations) Problems Ongoing - Any problem that you are currently receiving treatment for. Allergic rhinitis Anticoagulant long-term use Anxiety Atrial fibrillation Benign localized hyperplasia of prostate with urinary obstruction BMI 34.0-34.9,adult Cardiomegaly Chronic pulmonary embolism CKD (chronic kidney disease), stage III Congestive heart failure COPD mixed type Coronary artery disease Deep vein thrombosis Dementia Dependent edema Depression Diabetes Family history of malignant neoplasm of prostate Feeling of incomplete bladder emptying History of myocardial infarction Hx of migraine headaches Hyperlipidemia Hypertension Microscopic hematuria Mitral valve regurgitation Nocturia Obesity due to excess calories Post traumatic stress disorder Senile solar keratosis Historical - Any problem that you are no longer receiving treatment for. BMI 35.0-35.9,adult Patient Survey You may receive a survey via text or e-mail asking about your office visit. Please share your experience with us by completing your survey. We appreciate your feedback and thank you for choosing us for your care. [facility] Office Visiton 03-30-2024 Follow-up visit [id number] Kim Moreno 1950 [facility] Provider Department Center 03/30/2024 Ben-WESLEY SANTILLAN YADIRA [place] Family History Problem Relation Age of Onset Coronary artery disease Mother Coronary artery disease Father Heart attack Father Family Status - Relation Status Age at Mother Father Level of Service:86246 NE OFFICE/OUTPATIENT ESTABLISHED LOW MDM 20 MIN [facility] 37on 01-16-2024 37 Decrease amiodarone to 1/2 tablet- of the tablets you have in your bottle now or (100 mg daily) Decrease metoprolol to 12.5 mg twice a day - currently you are taking 1/2 tab or 25 mg twice a day [facility] Follow-Upon 01-16-2024 Follow-Up [id number] JoshKim West 1950 M [facility] Provider Department Center 01/16/2024 120-ANALI ALMONTE YADIRA [place] Family History Problem Relation Age of Onset Coronary artery disease Mother Coronary artery disease Father Heart attack Father Family Status - Relation Status Age at Mother Father Level of Service:03452 NE POSTOP FOLLOW UP VISIT RELATED TO ORIGINAL PX [facility] Telephoneon 12-25-2023 Telephone [id number] RaKim esquivel 1950 M [facility] Provider Department Center 12/25/2023 Mikael-[facility] [place] [facility] Family History Problem Relation Age of Onset Coronary artery disease Mother Coronary artery disease Father Heart attack Father Family Status - Relation Status Age at Mother Father Reason for Visit and Comments: post ablation f/u [Other] Normal [facility] HPon 12-17-2023 [facility] Electrophysiology Consult Note Reason for visit: Syncope/ Afib 12/02/23 Patient here for H&P prior to afib ablation scheduled for 12/17/[address] Corrigan. Had CTA chest today at [facility]. 10/07/23 Patient underwent cardioversion to sinus rhythm [...] on file Intimate Partner Violence: Unknown (10/09/2023) [place] Safety & Environment Fear of Current or [...] 104 QT Interval 474 QTC CALCULATION(BAZETT) 481 R-[place] -37 T Wave [place] -8 Impression Atrial fibrillation Left axis deviation [...] of mainta (more content not included)... Normal [facility] NURSNOTEon 12-17-2023 NURSNOTE RN reviewed discharg e instructions with patient and brother at bedside. Patient has prescriptions from [facility]. No questions expressed at this time. Patient's groin is clean, dry, intact, soft upon discharge Normal [facility] Orders Onlyon 12-17-2023 Orders Only [id number] Kim Moreno 1950 M Date Provider Department Center 12/17/20231986-[facility] [place] [facility] Family History Problem Relation Age of Onset Coronary artery disease Mother Coronary artery disease Father Heart attack Father Family Status - Relation Status Age at Mother Father Normal [facility] POCT GLUCOSE METER UNSOLICIT ED RESULTSon 12-17-2023 Glucose [Mass/Vol] 97 mg/dL Normal 70-105 [facility] Comment on above: Order Comment: Waive d Testing in the ED is performed under the ED CLIA certificate #[id number]. Result Comment: hste enr2 Performed By: #### L [id number] #### [facility] ([facility]) [address] [place] [address] Glucose [Mass/Vol] 119 mg/dL High 70-105 [facility] Comment on above: Order Comment: Waive d Testing in the ED is performed under the ED CLIA certificate #[id number]. Result Comment: rcle mes Performed By: #### L [id number] ####[facility] ([facility])[address] [facility] [address] Glucose [Mass/Vol] 68 mg/dL Low 70-105 [facility] Comment on above: Order Comment: Waive d Testing in the ED is performed under the ED CLIA certificate #[id number]. Result Comment: rcle mes Performed By: #### L [id number] #### [facility] ([facility]) [address] [place] [address] Glucose [Mass/Vol] 87 mg/dL Normal 70-105 [facility] Comment on above: Order Comment: Waive d Testing in the ED is performed under the ED CLIA certificate #[id number]. Result Comment: rcle mes Performed By: #### L [id number] ####[facility] ([facility])[address] [facility] [place] [address] Glucose [Mass/Vol] 62 mg/dL Low 70-105 [facility] Comment on above: Order Comment: Waive d Testing in the ED is performed under the ED CLIA certificate #[id number]. Result Comment: asor ia3 Performed By: #### L [id number] #### [facility] ([facility]) [address] [place] [address] PROTIME-INRon 12-17-2023 INR IN PPP BY COAGULATION ASSAY 1.39 High 0.90-1.10 [facility] Comment on above: Result Comment: ACCC P [...] 1995;108:[id number]. Performed By: #### L [id number] #### [facility] ([facility]) [address] [place] [address] PROTHROMBIN TIME (PT) IN PPP BY COAGULATION ASSAY 17.1 Seconds High 12.3-14.8 [facility] Comment on above: Performed By: #### L [id number] #### [facility] ([facility]) [address] [place] [address] Prep for Procedureon 024 Prep for Procedure [id number] Kim Moreno 1950 M Date Provider Department Center 12/17/2023 Mikael-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 Do not wear perfume, make-up, nail beninese, or lotions on the day of your [...] need to make any changes, please call [phone]. Notify your surgeon if you develop any illness such as a cold, cough, fever, sore throat or vomiting between now and your surgery. Thank you for entrusting us with your care. [facility] Team Normal [facility] BASIC METABOLIC PANELon 04- Anion gap [Moles/Vol] 11 mmol/L Normal 7-20 [facility] Comment on above: Performed By: #### L [id number] #### [facility] ([facility]) [address] [place] [address] Calcium [Mass/Vol] 9.3 mg/dL Normal 8.6-10.3 [facility] Comment on above: Performed By: #### L [id number] #### [facility] [address] [place] [address] Chloride [Moles/Vol] 109 mmol/L High 98-107 [facility] Comment on above: Performed By: #### L [id number] #### [facility] ([facility]) [address] [place] [address] CO2 [Moles/Vol] 24 mmol/L Normal 21-31 [facility] Comment on above: Performed By: #### L [id number] #### [facility] ([facility]) [address] [place] [address] Creatinine [Mass/Vol] 1.53 mg/dL High 0.70-1.30 [facility] Comment on above: Performed By: #### L [id number] #### [facility] ([facility]) [address] [place] [address] GLOMERULAR FILTRATION RATE ML/MIN/1.73 SQ M.PREDICTED 48.0 mL/min/1.73m*2 Low >60.0 [facility] Comment on above: Result Comment: The [facility]???s estimated glomerular filtration rate (eGFR) will no [...] individuals. Performed By: #### L [id number] #### [facility] ([facility]) [address] [place] [address] Glucose [Mass/Vol] 59 mg/dL Low 70-100 [facility] Comment on above: Performed By: #### L [id number] #### [facility] [address] [place] [address] Potassium [Moles/Vol] 4.7 mmol/L Normal 3.5-5.1 [facility] Comment on above: Performed By: #### L [id number] #### [facility] ([facility]) [address] [place] [address] Sodium [Moles/Vol] 139 mmol/L Normal 136-145 [facility] Comment on above: Performed By: #### L [id number] #### [facility] ([facility]) [address] [place] [address] Urea nitrogen [Mass/Vol] 26 mg/dL High 7-25 [facility] Comment on above: Performed By: #### L [id number] #### [facility] ([facility]) [address] [place] [address] UREA NITROGEN/CREATININE (MASS RATIO) IN SER/PLAS 17.0 Normal [facility] Comment on above: Performed By: #### L [id number] #### [facility] ([facility]) [address] [place] [address] CBCon 12-02-2023 Erythrocyte distribution width (RBC) [Ratio] 13.8 % Normal 11.5-15.0 [facility] Comment on above: Performed By: #### L [id number] #### [facility] ([facility]) [address] [place] [address] ERYTHROCYTE MEAN CORPUSCULAR HEMOGLOBIN CONCENTRATION (G/DL) BY AUTOMATED 32.8 g/dL Normal 32.0-35.0 [facility] Comment on above: Performed By: #### L [id number] #### [facility] ([facility]) [address] [place] [address] Hematocrit (Bld) [Volume fraction] 41.1 % Normal 39.0-55.0 [facility] Comment on above: Performed By: #### L [id number] #### [facility] ([facility] [address] [place] [address] Hemoglobin (Bld) [Mass/Vol] 13.5 g/dL Normal 13.0-17.0 [facility] Comment on above: Performed By: #### L [id number] #### [facility] ([facility]) [address] [place] [address] MCH (RBC) [Entitic mass] 30.7 pg Normal 27.0-33.0 [facility] Comment on above: Performed By: #### L [id number] #### [facility] ([facility]) [address] [place] [address] MCV (RBC) [Entitic vol] 93.4 fL Normal 82.0-98.0 [facility] Comment on above: Performed By: #### L [id number] #### [facility] ([facility]) [address] [place] [address] PLATELETS (10*3/UL) IN BLOOD AUTOMATED COUNT 229 10*3/uL Normal 150-400 [facility] Comment on above: Performed By: #### L [id number] #### [facility] ([facility]) [address] [place] [address] RBC (Bld) [#/Vol] 4.40 10*6/uL Normal 4.20-5.70 [facility] Comment on above: Performed By: #### L [id number] #### [facility] ([facility]) [address] [place] [address] WBC (Bld) [#/Vol] 11.28 10*3/uL High 4.00-10.60 [facility] Comment on above: Performed By: #### L [id number] #### [facility] ([facility]) [address] [place] [address] CTA CHEST W IV CONTRASTon CTA CHEST [...] upper chest Electronically signed: Reynaldo Bustillos. Normal [facility] Comment on above: Order Comment: [facility] schedule prior to december 16, will need BMP prior Labon 12-02-2023 Lab [id number] RaBebeto esquivele E 1950 M Date Provider Department Center 12/02/2023 2245-[facility] [place] [facility] Family History Problem Relation Age of Onset Coronary artery disease Mother Coronary artery disease Father Heart attack Father Family Status - Relation Status Age at Mother Father Normal [facility] Office Visiton 12-02-2023 Follow-up visit [id number] Bebeto Morenoe E 1950 M Date Provider Department Center 12/02/2023 241-WESLEY SANTILLAN [facility] Family History Problem Relation Age of Onset Coronary artery disease Mother Coronary artery disease Father Heart attack Father Family Status - Relation Status Age at Mother Father Level of Service:89976 NE OFFICE/OUTPATIENT ESTABLISHED HIGH MDM 40 MIN Normal [facility] Orders Onlyon 10-10-2023 Orders Only [id number] JoshKim E 1950 M Date Provider Department Center 10/10/2023 895-JOSTIN DIAZ [facility] Family History Problem Relation Age of Onset Coronary artery disease Mother Coronary artery disease Father Heart attack Father Family Status - Relation Status Age at Mother Father Normal [facility] Prep for Procedureon 024 Prep for Procedure [id number] Rasierra,Kim E 1950 M Date Provider Department Center 10/10/20231986-KOLBY WOOD [facility] Family History Problem Relation Age of Onset Coronary artery disease Mother Coronary artery disease Father Heart attack Father Family Status - Relation Status Age at Mother Father Normal [facility] Office Visiton 10-07-2023 Follow-up visit [id number] Kim Moreno 1950 M Date Provider Department Center 10/07/2023 241-WESLEY SANTILLAN [facility] Family History Problem Relation Age of Onset Coronary artery disease Mother Coronary artery disease Father Heart attack Father Family Status - Relation Status Age at Mother Father Level of Service:16902 NE OFFICE/OUTPATIENT ESTABLISHED HIGH MDM 40 MIN Normal [facility] PROF CHEM 8 (BAS METB)on Anion gap [Moles/Vol] 12.9 mmol/L Normal [facility] Comment on above: Performed By: #### C MREP #### [facility] [address] [address] [address] Caroline Bell Calcium [Mass/Vol] 9.4 mg/dL Normal 8.5-10.1 [facility] Comment on above: Performed By: #### C MREP #### [facility] [address] [address] [address] Caroline Bell Chloride [Moles/Vol] 106 mmol/L Normal 98-107 [facility] Comment on above: Performed By: #### C MREP #### [facility] [address] [address] [address] Caroline Bell CO2 [Moles/Vol] 28.0 mmol/L Normal 21.0-32.0 [facility] Comment on above: Performed By: #### C MREP #### [facility] [address] [address] [address] Caroline Bell Creatinine [Mass/Vol] 1.63 mg/dL Critically high 0.70-1.30 [facility] Comment on above: Performed By: #### C MREP #### [facility] [address] [address] [address] Caroline Bell EGFR-AF [place] 51 mL/min/1.73m2 Critically low >=60 [facility] Comment on above: Performed By: #### C MREP #### [facility] [address] [address] [address] Caroline Bell EGFR-NON AF [place] 42 mL/min/1.73m2 Critically low >=60 [facility] Comment on above: Performed By: #### C MREP #### [facility] [address] [address] [address] Caroline Bell Glucose [Mass/Vol] 79 mg/dL Normal 74-106 [facility] Comment on above: Performed By: #### C MREP #### [facility] [address] [address] [address] Caroline Bell Potassium [Moles/Vol] 4.9 mmol/L Normal 3.5-5.1 [facility] Comment on above: Performed By: #### C MREP #### [facility] [address] [address] [address] Caroline Bell Sodium [Moles/Vol] 142 mmol/L Normal 136-145 [facility] Comment on above: Performed By: #### C MREP #### [facility] [address] [address] [address] Caroline Bell Urea nitrogen [Mass/Vol] 32.0 mg/dL Critically high 7.0-18.0 [facility] Comment on above: Performed By: #### C MREP #### [facility] [address] [address] [address] Caroline Bell Urea nitrogen/Creatinine [Mass ratio] 19.6 mg/mg Normal [facility] Comment on above: Performed By: #### C MREP #### [facility] [address] [address] [address] Caroline Bell PROF CHEM 8 (BAS METB)on Anion gap [Moles/Vol] 14.7 mmol/L Normal [facility] Comment on above: Performed By: #### I NSULIN #### [facility] [address] [place] [address] Dr. Caroline Bell Calcium [Mass/Vol] 9.1 mg/dL Normal 8.5-10.1 [facility] Comment on above: Performed By: #### I NSULIN #### [facility] [address] [place] [address] Dr. Caroline Bell Chloride [Moles/Vol] 107 mmol/L Normal 98-107 [facility] Comment on above: Performed By: #### I NSULIN #### [facility] [address] [place] [address] Dr. Caroline Bell CO2 [Moles/Vol] 26.4 mmol/L Normal 21.0-32.0 [facility] Comment on above: Performed By: #### I NSULIN #### [facility] [address] [place] [address] Dr. Caroline Bell Creatinine [Mass/Vol] 1.82 mg/dL Critically high 0.70-1.30 [facility] Comment on above: Performed By: #### I NSULIN #### [facility] [address] [place] [address] Dr. Caroline Bell EGFR-AF [place] 45 mL/min/1.73m2 Critically low >=60 [facility] Comment on above: Performed By: #### I NSULIN #### [facility] [address] [place] [address] Dr. Caroline Bell EGFR-NON AF [place] 37 mL/min/1.73m2 Critically low >=60 [facility] Comment on above: Performed By: #### I NSULIN #### [facility] [address] [place] [address] Dr. Caroline Bell Glucose [Mass/Vol] 324 mg/dL Critically high 74-106 [facility] Comment on above: Performed By: #### I NSULIN #### [facility] [address] [place] [address] Dr. Caroline Bell Potassium [Moles/Vol] 5.1 mmol/L Normal 3.5-5.1 [facility] Comment on above: Performed By: #### I NSULIN #### [facility] [address] [place] [address] Dr. Caroline Bell Sodium [Moles/Vol] 143 mmol/L Normal 136-145 [facility] Comment on above: Performed By: #### I NSULIN #### [facility] [address] [place], [place] [address] Dr. Caroline Bell Urea nitrogen [Mass/Vol] 30.0 mg/dL Critically high 7.0-18.0 [facility] Comment on above: Performed By: #### I NSULIN #### [facility] [address] [place] [address] Dr. Caroline Bell Urea nitrogen/Creatinine [Mass ratio] 16.5 mg/mg Normal [facility] Comment on above: Performed By: #### I NSULIN #### [facility] [address] [address] [address] Caroline Bell ECHOCARDIO M/2D COMPLETEon 0 09-27-2022 ECHOCARDIO M/2D COMPLETE Patient: KIM MORENO Exam Date: 09/27/2022 : 1950 Gender:M Ordering : DR IKER CORRIGAN . Admission #: [id number] Family : [facility] Order #: [id number] CLICK HERE TO VIEW EXAM ECHOCARDIOGRAM REPORT [...] M.D. on 09/27/2022 at 15:[address] [facility] INSULINon 09-24-2022 Insulin 19.1 uIU/mL Normal 2.6-24.[address] [facility] Comment on above: Performed By: #### I NSULIN #### [facility] [address] [place] [address] Dr. Caroline Bell BNPon 09-23-2022 Natriuretic peptide B (Bld) [Mass/Vol] 2963.0 pg/mL Critically high <=900.0 [facility] Comment on above: Performed By: #### V ITAD, PSASC #### [facility] [address] [place] [address] Dr. Caroline Bell CBC AUTO DIFFon 09-23-2022 BASO # 0.1 103/ul Normal 0.0-0.1 [facility] Comment on above: Performed By: #### P OCGLUC #### [facility] [address] [place] [address] Dr. Caroline Bell Basophils/100 WBC (Bld) 0.8 % Normal 0.2-2.0 [facility] Comment on above: Performed By: #### P OCGLUC #### [facility] [address] [place] [address] Dr. Caroline Bell EO # 0.3 103/ul Normal 0.0-0.7 [facility] Comment on above: Performed By: #### P OCGLUC #### [facility] [address] [place] [address] Dr. Caroline Bell Eosinophils/100 WBC (Bld) 4.2 % Normal 0.9-7.0 [facility] Comment on above: Performed By: #### P OCGLUC #### [facility] [address] [place] [address] Dr. Caroline Bell Erythrocyte distribution width (RBC) [Ratio] 14.1 % Normal 11.0-15.[address] [facility] Comment on above: Performed By: #### P OCGLUC #### [facility] [address] [place] [address] Dr. Caroline Bell Hematocrit (Bld) [Volume fraction] 41.8 % Critically low 42.0-54.0 [facility] Comment on above: Performed By: #### P OCGLUC #### [facility] [address] [place] [address] Dr. Caroline Bell Hemoglobin (Bld) [Mass/Vol] 12.7 g/dL Critically low 14.0-18.0 [facility] Comment on above: Performed By: #### P OCGLUC #### [facility] [address] [address] [address] Caroline Bell IG # 0.03 10e3/ul Normal 0.00-0.03 [facility] Comment on above: Performed By: #### P OCGLUC #### [facility] [address] [address] [address] Caroline Bell IG % 0.4 % Normal 0.0-0.5 [facility] Comment on above: Performed By: #### P OCGLUC #### [facility] [address] [address] [address] Caroline Bell LYMPH # 1.8 103/ul Normal 1.2-3.8 [facility] Comment on above: Performed By: #### P OCGLUC #### [facility] [address] [place] [address] Dr. Caroline Bell Lymphocytes/100 WBC (Bld) 23.0 % Normal 20.5-60.0 [facility] Comment on above: Performed By: #### P OCGLUC #### [facility] [address] [address] [address] Caroline Bell MANUAL DIFF REQ NO Normal [facility] Comment on above: Performed By: #### P OCGLUC #### [facility] [address] [address] [address] Caroline Bell MCH (RBC) [Entitic mass] 29.3 pg Normal 25.9-34.0 [facility] Comment on above: Performed By: #### P OCGLUC #### [facility] [address] [address] [address] Caroline Bell MCHC (RBC) [Mass/Vol] 30.4 g/dL Normal 29.9-35.2 [facility] Comment on above: Performed By: #### P OCGLUC #### [facility] [address] [place] [address] Dr. Caroline Bell MCV (RBC) [Entitic vol] 96.3 fL Critically high 80.0-94.0 [facility] Comment on above: Performed By: #### P OCGLUC #### [facility] [address] [address] [address] Caroline Bell MONO # 0.5 103/ul Normal 0.3-0.8 [facility] Comment on above: Performed By: #### P OCGLUC #### [facility] [address] [address] [address] Caroline Bell Monocytes/100 WBC (Bld) 6.2 % Normal 1.7-12.0 [facility] Comment on above: Performed By: #### P OCGLUC #### [facility] [address] [address] [address] Caroline Bell NEUT # 5.2 103/ul Normal 1.4-6.5 [facility] Comment on above: Performed By: #### P OCGLUC #### [facility] [address] [address] [address] Caroline Bell Neutrophils/100 WBC (Bld) 65.4 % Normal 43.0-75.0 [facility] Comment on above: Performed By: #### P OCGLUC #### [facility] [address] [address] [address] Caroline Bell Platelet mean volume (Bld) [Entitic vol] 10.0 fL Normal 9.5-13.5 [facility] Comment on above: Performed By: #### P OCGLUC #### [facility] [address] [address] [address] Caroline Bell PLT 232 103/ul Normal 150-[address] [facility] Comment on above: Performed By: #### P OCGLUC #### [facility] [address] [address] [address] Caroline Bell RBC 4.34 106/ul Critically low 4.70-6.10 [facility] Comment on above: Performed By: #### P OCGLUC #### [facility] [address] [address] [address] Caroline Bell WBC 7.9 103/ul Normal 4.0-11.0 [facility] Comment on above: Performed By: #### P OCGLUC #### [facility] [address] [place] [address] Dr. Caroline Bell FREE THYROXINE INDEX T7on FTI 2.05 Normal 1.30-4.50 [facility] Comment on above: Performed By: #### V ITAD, PSASC #### [facility] [address] [address] [address] Caroline Bell T3U 33.0 % Normal 33.0-40.0 [facility] Comment on above: Performed By: #### V ITAD, PSASC #### [facility] [address] [place] [address] Dr. Caroline Bell T4 [Mass/Vol] 6.20 ug/dL Normal 4.50-12.10 [facility] Comment on above: Performed By: #### V ITAD, PSASC #### [facility] [address] [place] [address] Dr. Caroline Bell GLYCOHEMOGLOBIN A1Con 2022 ADA RECOMMENDATION SEE BELOW Normal [facility] Comment on above: Result Comment: ADA RECOMMENDED LIMIT 4.0 - 6.0 ADA THERAPEUTIC TARGET < 7.0 ACTION SUGGESTED > 7.0 Performed By: #### P OCGLUC #### [facility] [address] [place] [address] Dr. Caroline Bell HbA1c (Bld) [Mass fraction] 7.2 % Critically high 4.5-6.2 [facility] Comment on above: Performed By: #### P OCGLUC #### [facility] [address] [place] [address] Dr. Caroline Bell LIPID PROFILEon 09-23-2022 CHOL-HDL RATIO NORM SEE BELOW Normal [facility] Comment on above: Result Comment: 3.3 - 4.4 LOW RISK 4.4 - 7.1 AVERAGE RISK 7.1 - 11.0 MODERATE RISK >11.0 HIGH RISK Performed By: #### V ITAD, PSASC #### [facility] [address] [place] [address] Dr. Caroline Bell Cholesterol [Mass/Vol] 132 mg/dL Normal <=200 [facility] Comment on above: Performed By: #### V ITAD, PSASC #### [facility] [address] [address] [address] Caroline Bell Cholesterol in HDL [Mass/Vol] 67 mg/dL Critically high 40-60 [facility] Comment on above: Performed By: #### V ITAD, PSASC #### [facility] [address] [address] [address] Caroline Bell Cholesterol in LDL [Mass/Vol] 54.2 mg/dL Normal [facility] Comment on above: Performed By: #### V ITAD, PSASC #### [facility] [address] [address] [address] Caroline Bell Cholesterol.total/Ch olesterol in HDL [Mass ratio] 2.0 {ratio} Normal [facility] Comment on above: Performed By: #### V ITAD, PSASC #### [facility] [address] [address] [address] Caroline Bell HDL NORMAL > or = 60 mg/dl - LO W CARDIOVASCULAR RISK <40 mg/dl - HIGH CARDIOVASCULAR RISK Normal [facility] Comment on above: Performed By: #### V ITAD, PSASC #### [facility] [address] [place] [address] Dr. Caroline Bell LDL CALC NORMAL SEE BELOW Normal [facility] Comment on above: Result Comment: <100 mg/dl OPTIMAL 100 - 129 mg/dl NEAR OR ABOVE OPTIMAL 130 - 159 mg/dl BORDERLINE HIGH 160 - 189 mg/dl HIGH >190 mg/dl VERY HIGH Performed By: #### V ITAD, PSASC #### [facility] [address] [address] [address] Caroline Bell Triglyceride [Mass/Vol] 54 mg/dL Normal <=150 [facility] Comment on above: Performed By: #### V ITAD, PSASC #### [facility] [address] [address] [address] Caroline Bell VLDL CALC 10.8 mg/dL Normal [facility] Comment on above: Performed By: #### V ITAD, PSASC #### [facility] [address] [address] [address] Caroline Bell PROF 14(COMP METB)on 023 Albumin [Mass/Vol] 3.8 g/dL Normal 3.4-5.0 [facility] Comment on above: Performed By: #### V ITAD, PSASC #### [facility] [address] [address] [address] Caroline Bell Albumin/Globulin [Mass ratio] 0.9 {ratio} Normal [facility] Comment on above: Performed By: #### V ITAD, PSASC #### [facility] [address] [address] [address] Caroline Bell ALP [Catalytic activity/Vol] 99 U/L Normal 46-116 [facility] Comment on above: Performed By: #### V ITAD, PSASC #### [facility] [address] [address] [address] Caroline Bell ALT [Catalytic activity/Vol] 25 U/L Normal 16-63 [facility] Comment on above: Performed By: #### V ITAD, PSASC #### [facility] [address] [address] [address] Caroline Bell Anion gap [Moles/Vol] 13.2 mmol/L Normal [facility] Comment on above: Performed By: #### V ITAD, PSASC #### [facility] [address] [address] [address] Caroline Bell AST [Catalytic activity/Vol] 18 U/L Normal 15-37 [facility] Comment on above: Performed By: #### V ITAD, PSASC #### [facility] [address] [address] [address] Caroline Bell Bilirubin [Mass/Vol] 0.5 mg/dL Normal 0.2-1.0 [facility] Comment on above: Performed By: #### V ITAD, PSASC #### [facility] [address] [address] [address] Caroline Bell Calcium [Mass/Vol] 9.3 mg/dL Normal 8.5-10.1 [facility] Comment on above: Performed By: #### V ITAD, PSASC #### [facility] [address] [place] [address] Dr. Caroline Bell Chloride [Moles/Vol] 106 mmol/L Normal 98-[address] [facility] Comment on above: Performed By: #### V ITAD, PSASC #### [facility] [address] [place] [address] Dr. Caroline Bell CO2 [Moles/Vol] 26.1 mmol/L Normal 21.0-32.0 [facility] Comment on above: Performed By: #### V ITAD, PSASC #### [facility] [address] [place] [address] Dr. Caroline Bell Creatinine [Mass/Vol] 1.59 mg/dL Critically high 0.70-1.30 [facility] Comment on above: Performed By: #### V ITAD, PSASC #### [facility] [address] [place] [address] Dr. Caroline Bell EGFR-AF [place] 52 mL/min/1.73m2 Critically low >=[address] [facility] Comment on above: Performed By: #### V ITAD, PSASC #### [facility] [address] [place] [address] Dr. Caroline Bell EGFR-NON AF [place] 43 mL/min/1.73m2 Critically low >=[address] [facility] Comment on above: Performed By: #### V ITAD, PSASC #### [facility] [address] [place] [address] Dr. Caroline Bell Globulin (S) [Mass/Vol] 4.2 g/dL Normal [facility] Comment on above: Performed By: #### V ITAD, PSASC #### [facility] [address] [place] [address] Dr. Caroline Bell Glucose [Mass/Vol] 160 mg/dL Normal [facility] Comment on above: Performed By: #### V ITAD, PSASC #### [facility] [address] [place] [address] Dr. Caroline Bell Performed By: #### P OCGLUC #### [facility] [address] [place] [address] Dr. Caroline Bell Potassium [Moles/Vol] 5.3 mmol/L Critically high 3.5-5.1 [facility] Comment on above: Performed By: #### V ITAD, PSASC #### [facility] [address] [place] [address] Dr. Caroline Bell Protein [Mass/Vol] 8.0 g/dL Normal 6.4-8.2 [facility] Comment on above: Performed By: #### V ITAD, PSASC #### [facility] [address] [place] [address] Dr. Caroline Bell Sodium [Moles/Vol] 140 mmol/L Normal 136-145 [facility] Comment on above: Performed By: #### V ITAD, PSASC #### [facility] [address] [place] [address] Dr. Caroline Bell Urea nitrogen [Mass/Vol] 30.0 mg/dL Critically high 7.0-18.0 [facility] Comment on above: Performed By: #### V ITAD, PSASC #### [facility] [address] [place] [address] Dr. Caroline Bell Urea nitrogen/Creatinine [Mass ratio] 18.9 mg/mg Normal [facility] Comment on above: Performed By: #### V ITAD, PSASC #### [facility] [address] [place] [address] Dr. Caroline Bell TSHon 09-23-2022 TSH 1.076 uIU/mL Normal 0.358-3.740 [facility] Comment on above: Performed By: #### V ITAD, PSASC #### [facility] [address] [place] [address] Dr. Caroline Bell URIC ACID SERUMon 09-23-2022 Urate [Mass/Vol] 5.9 mg/dL Normal 3.5-7.2 [facility] Comment on above: Performed By: #### V ITAD, PSASC #### [facility] [address] [place] [address] Dr. Caroline Bell VITAMIN D 25 OHon 09-23-2022 VIT D 25-OH 32.7 ng/mL Normal [facility] Comment on above: Performed By: #### V DIDI, PSASC #### [facility] [address] [place] [address] Dr. Caroline Bell VIT D RANGES SEE BELOW Normal [facility] Comment on above: Result Comment: <20 ng/mL Vit D deficient 20 - <30 ng/mL Vit D insufficient 30 - 100 ng/mL Vit D sufficient >100 ng/mL Potential Toxicity Performed By: #### V DIDI PSASC #### [facility] [address] [place] [address] Dr. Caroline Bell CBC AUTO DIFFon 06-18-2022 BASO # 0.1 103/ul Normal 0.0-0.1 [facility] Comment on above: Performed By: #### C BC #### [facility] [address] [place] [address] Dr. Caroline Bell Basophils/100 WBC (Bld) 0.4 % Normal 0.2-2.0 [facility] Comment on above: Performed By: #### C BC #### [facility] [address] [place] [address] Dr. Caroline Bell EO # 0.2 103/ul Normal 0.0-0.7 [facility] Comment on above: Performed By: #### C BC #### [facility] [address] [place] [address] Dr. Caroline Bell Eosinophils/100 WBC (Bld) 2.0 % Normal 0.9-7.0 [facility] Comment on above: Performed By: #### C BC #### [facility] [address] [place] [address] Dr. Caroline Bell Erythrocyte distribution width (RBC) [Ratio] 14.5 % Normal 11.0-15.0 [facility] Comment on above: Performed By: #### C BC #### [facility] [address] [place] [address] Dr. Caroline Bell Hematocrit (Bld) [Volume fraction] 35.6 % Critically low 42.0-54.0 [facility] Comment on above: Performed By: #### C BC #### [facility] [address] [address] [address] Caroline Bell Hemoglobin (Bld) [Mass/Vol] 11.4 g/dL Critically low 14.0-18.0 [facility] Comment on above: Performed By: #### C BC #### [facility] [address] [address] [address] Caroline Bell IG # 0.05 10e3/ul Critically high 0.00-0.03 [facility] Comment on above: Performed By: #### C BC #### [facility] [address] [place] [address] Dr. Caroline Bell IG % 0.4 % Normal 0.0-0.5 [facility] Comment on above: Performed By: #### C BC #### [facility] [address] [address] [address] Caroline Bell LYMPH # 1.4 103/ul Normal 1.2-3.8 [facility] Comment on above: Performed By: #### C BC #### [facility] [address] [place] [address] Dr. Caroline Bell Lymphocytes/100 WBC (Bld) 12.0 % Critically low 20.5-60.0 [facility] Comment on above: Performed By: #### C BC #### [facility] [address] [place] [address] Dr. Caroline Bell MANUAL DIFF REQ NO Normal [facility] Comment on above: Performed By: #### C BC #### [facility] [address] [address] [address] Caroline Bell MCH (RBC) [Entitic mass] 29.5 pg Normal 25.9-34.0 [facility] Comment on above: Performed By: #### C BC #### [facility] [address] [place] [address] Dr. Caroline Bell MCHC (RBC) [Mass/Vol] 32.0 g/dL Normal 29.9-35.2 [facility] Comment on above: Performed By: #### C BC #### [facility] [address] [place] [address] Dr. Caroline Bell MCV (RBC) [Entitic vol] 92.2 fL Normal 80.0-94.0 [facility] Comment on above: Performed By: #### C BC #### [facility] [address] [place] [address] Dr. Caroline Bell MONO # 0.7 103/ul Normal 0.3-0.8 [facility] Comment on above: Performed By: #### C BC #### [facility] [address] [place] [address] Dr. Caroline Bell Monocytes/100 WBC (Bld) 5.7 % Normal 1.7-12.0 [facility] Comment on above: Performed By: #### C BC #### [facility] [address] [place] [address] Dr. Caroline Bell NEUT # 9.6 103/ul Critically high 1.4-6.5 [facility] Comment on above: Performed By: #### C BC #### [facility] [address] [place] [address] Dr. Caroline Bell Neutrophils/100 WBC (Bld) 79.5 % Critically high 43.0-75.0 [facility] Comment on above: Performed By: #### C BC #### [facility] [address] [place] [address] Dr. Caroline Bell Platelet mean volume (Bld) [Entitic vol] 10.0 fL Normal 9.5-13.[address] [facility] Comment on above: Performed By: #### C BC #### [facility] [address] [place] [address] Dr. Caroline Bell PLT 240 103/ul Normal 150-[address] [facility] Comment on above: Performed By: #### C BC #### [facility] [address] [place] [address] Dr. Caroline Bell RBC 3.86 106/ul Critically low 4.70-6.10 [facility] Comment on above: Performed By: #### C BC #### [facility] [address] [place], [place] [address] Dr. Caroline Bell WBC 12.0 103/ul Critically high 4.0-11.0 [facility] Comment on above: Performed By: #### C BC #### [facility] [address] [place], [place] [address] CSPINE WO CONon [...] MARLENI SAID Date: 2022-06-18 02:[address] [facility] CT HEAD WO CONon 06-18-2022 CT [...] MARLENI SAID Date: 2022-06-18 01:[address] [facility] ER URINE PROFILEon 2 Bilirubin Ql (U) Negative Normal NEGATIVE [facility] Comment on above: Performed By: #### V ITAD, PSASC #### [facility] [address] [place] [address] Dr. Caroline Bell Clarity (U) CLEAR Normal CLEAR [facility] Comment on above: Performed By: #### V ITAD, PSASC #### [facility] [address] [address] [address] Caroline Bell Color (U) LT. YELLOW Normal YELLOW [facility] Comment on above: Performed By: #### V ITAD, PSASC #### [facility] [address] [place] [address] Dr. Caroline TAYLOR A micrscopic examination will be performed if indicated. Normal [facility] Comment on above: Performed By: #### V ITAD, PSASC #### [facility] [address] [address] [address] Caroline Bell Glucose Ql (U) Negative Normal NEGATIVE [facility] Comment on above: Performed By: #### V ITAD, PSASC #### [facility] [address] [place] [address] Dr. Caroline Bell Hemoglobin Ql (U) Negative Normal NEGATIVE [facility] [place] [facility] Comment on above: Performed By: #### V ITAD, PSASC #### [facility] [address] [address] [address] Caroline Bell Ketones Ql (U) TRACE Abnormal NEGATIVE [facility] Comment on above: Performed By: #### V ITAD, PSASC #### [facility] [address] [address] [address] Caroline Bell LEUKOCYTES Negative Normal NEGATIVE [facility] Comment on above: Performed By: #### V ITAD, PSASC #### [facility] [address] [place] [address] Dr. Caroline Bell Nitrite Ql (U) Negative Normal NEGATIVE [facility] Comment on above: Performed By: #### V ITAD, PSASC #### [facility] [address] [address] [address] Caroline Bell pH (U) 6.0 [pH] Normal 5-[address] [facility] Comment on above: Performed By: #### V ITJAVI, PSASC #### [facility] [address] [address] [address] Caroline eBll SPEC GRAVITY 1.020 Normal 1.005-<=1.025 [facility] Comment on above: Performed By: #### V ITAD, PSASC #### [facility] [address] [place] [address] Dr. Caroline Bell UA PROTEIN TRACE Normal NEGATIVE/ TRACE [facility] Comment on above: Performed By: #### V ITAD, PSASC #### [facility] [address] [place] [address] Dr. Caroline Bell UR MICRO IND NOT INDICATED Normal [facility] Comment on above: Performed By: #### V ITJAVI, PSASC #### [facility] [address] [address] [address] Caroline Bell Urobilinogen Qn (U) 0.2 {Sophia'U}/dL Normal 0.2 - 1. 0 [facility] Comment on above: Performed By: #### V ITJAVI, PSASC #### [facility] [address] [place] [address] Dr. Caroline Bell LACTATE/LACTIC ACIDon 2021 Lactate [Moles/Vol] 2.9 mmol/L Critically high 0.4-1.9 [facility] Comment on above: Performed By: #### I NSULIN #### [facility] [address] [place] [address] Dr. Caroline Bell Lactate [Moles/Vol] 1.9 mmol/L Normal 0.4-1.9 [facility] Comment on above: Performed By: #### P OCGLUC #### [facility] [address] [place] [address] Dr. Caroline Bell POINT OF CARE GLUCOSEon Glucose [Mass/Vol] 411 mg/dL Critically high 74-106 T [facility] Comment on above: Performed By: #### P OCGLUC #### [facility] [address] [address] [address] Caroline Bell Glucose [Mass/Vol] 51 mg/dL Critically low 74-106 [facility] Comment on above: Performed By: #### P OCGLUC #### [facility] [address] [address] [address] Caroline Bell PROF 14(COMP METB)on 022 Albumin [Mass/Vol] 3.7 g/dL Normal 3.4-5.0 [facility] Comment on above: Performed By: #### V ITAD, PSASC #### [facility] [address] [place] [address] Dr. Caroline Bell Albumin/Globulin [Mass ratio] 0.9 {ratio} Normal [facility] Comment on above: Performed By: #### V ITAD, PSASC #### [facility] [address] [address] [address] Caroline Bell ALP [Catalytic activity/Vol] 96 U/L Normal 46-116 [facility] Comment on above: Performed By: #### V ITAD, PSASC #### [facility] [address] [place] [address] Dr. Caroline Bell ALT [Catalytic activity/Vol] 16 U/L Normal 16-63 [facility] Comment on above: Performed By: #### V ITAD, PSASC #### [facility] [address] [address] [address] Caroline Bell Anion gap [Moles/Vol] 14.3 mmol/L Normal [facility] Comment on above: Performed By: #### V ITAD, PSASC #### [facility] [address] [place] [address] Dr. Caroline Bell AST [Catalytic activity/Vol] 15 U/L Normal 15-37 [facility] Comment on above: Performed By: #### V ITAD, PSASC #### [facility] [address] [place] [address] Dr. Caroline Bell Bilirubin [Mass/Vol] 0.3 mg/dL Normal 0.2-1.0 [facility] Comment on above: Performed By: #### V ITJAVI, PSASC #### [facility] [address] [place] [address] Dr. Caroline Bell Calcium [Mass/Vol] 8.9 mg/dL Normal 8.5-10.1 [facility] Comment on above: Performed By: #### V ITAD, PSASC #### [facility] [address] [place] [address] Dr. Caroline Bell Chloride [Moles/Vol] 109 mmol/L Critically high 98-107 [facility] Comment on above: Performed By: #### V ITJAVI, PSASC #### [facility] [address] [place] [address] Dr. Caroline Bell CO2 [Moles/Vol] 22.6 mmol/L Normal 21.0-32.0 [facility] Comment on above: Performed By: #### V ITAD, PSASC #### [facility] [address] [place] [address] Dr. Caroline Bell Creatinine [Mass/Vol] 1.89 mg/dL Critically high 0.70-1.30 [facility] Comment on above: Performed By: #### V ITAD, PSASC #### [facility] [address] [place] [address] Dr. Caroline Bell EGFR-AF [place] 43 mL/min/1.73m2 Critically low >=[address] [facility] Comment on above: Performed By: #### V ITAD, PSASC #### [facility] [address] [place] [address] Dr. Caroline Bell EGFR-NON AF [place] 35 mL/min/1.73m2 Critically low >=[address] [facility] Comment on above: Performed By: #### V ITAD, PSASC #### [facility] [address] [place] [address] Dr. Caroline Bell Globulin (S) [Mass/Vol] 4.0 g/dL Normal [facility] Comment on above: Performed By: #### V ITAD, PSASC #### [facility] [address] [address] [address] Caroline Bell Glucose [Mass/Vol] 48 mg/dL Critically low 74-106 Th [facility] Comment on above: Performed By: #### V ITAD, PSASC #### [facility] [address] [address] [address] Caroline Bell Potassium [Moles/Vol] 4.9 mmol/L Normal 3.5-5.1 [facility] Comment on above: Performed By: #### V ITAD, PSASC #### [facility] [address] [address] [address] Caroline Bell Protein [Mass/Vol] 7.7 g/dL Normal 6.4-8.2 [facility] Comment on above: Performed By: #### V ITAD, PSASC #### [facility] [address] [address] [address] Caroline Bell Sodium [Moles/Vol] 141 mmol/L Normal 136-145 [facility] Comment on above: Performed By: #### V ITAD, PSASC #### [facility] [address] [address] [address] Caroline Bell Urea nitrogen [Mass/Vol] 32.0 mg/dL Critically high 7.0-18.0 [facility] Comment on above: Performed By: #### V ITAD, PSASC #### [facility] [address] [address] [address] Caroline Bell Urea nitrogen/Creatinine [Mass ratio] 16.9 mg/mg Normal [facility] Comment on above: Performed By: #### V ITAD, PSASC #### [facility] [address] [address] [address] Caroline Bell TROPONIN, HIGH SENSITIVITYon 06-18-2022 HSTROP 10.8 pg/mL Normal 4.0-76.1 [facility] Comment on above: Result Comment: CUT- OFF POINTS HAVE BEEN ESTABLISHED BASED ON THE FOURTH UNIVERSAL DEFINITIONS OF MYOCARDIAL INFARCTION. THE UPPER REFERENCE LIMIT (URL) OF TROPONIN, DEFINED THE 99TH PERCENTILE OF cTnI DISTRIBUTION IN A REFERENCE POPULATION, HAS BEEN CONFIRMED THE DECISION THRESHOLD FOR NM DIAGNOSIS. Performed By: #### V ITAD, PSASC #### [facility] [address] [address] [address] Caroline Bell XR CHEST 1 Von [...] NICK CHAIREZ Date: 2022-06-18 01:[address] [facility] BNPon 06-11-2022 Natriuretic peptide B (Bld) [Mass/Vol] 5101.0 pg/mL Critically high <=900.[address] [facility] Comment on above: Performed By: #### C MREP #### [facility] [address] [address] [address] Caroline Bell CBC AUTO DIFFon 06-11-2022 BASO # 0.0 103/ul Normal 0.0-0.[address] [facility] Comment on above: Performed By: #### P OCGLUC #### [facility] [address] [address] [address] Caroline Bell Basophils/100 WBC (Bld) 0.4 % Normal 0.2-2.[address] [facility] Comment on above: Performed By: #### P OCGLUC #### [facility] [address] [address] [address] Caroline Bell EO # 0.6 103/ul Normal 0.0-0.[address] [facility] Comment on above: Performed By: #### P OCGLUC #### [facility] [address] [address] [address] Caroline Bell Eosinophils/100 WBC (Bld) 6.1 % Normal 0.9-7.[address] [facility] Comment on above: Performed By: #### P OCGLUC #### [facility] [address] [address] [address] Caroline Bell Erythrocyte distribution width (RBC) [Ratio] 14.4 % Normal 11.0-15.0 [facility] Comment on above: Performed By: #### P OCGLUC #### [facility] [address] [place] [address] Dr. Caroline Bell Hematocrit (Bld) [Volume fraction] 27.5 % Critically low 42.0-54.0 [facility] Comment on above: Performed By: #### P OCGLUC #### [facility] [address] [place] [address] Dr. Caroline Bell Hemoglobin (Bld) [Mass/Vol] 8.7 g/dL Critically low 14.0-18.0 [facility] Comment on above: Performed By: #### P OCGLUC #### [facility] [address] [place] [address] Dr. Caroline Bell IG # 0.01 10e3/ul Normal 0.00-0.03 [facility] Comment on above: Performed By: #### P OCGLUC #### [facility] [address] [place] [address] Dr. Caroline Bell IG % 0.1 % Normal 0.0-0.5 [facility] Comment on above: Performed By: #### P OCGLUC #### [facility] [address] [place] [address] Dr. Caroline Bell LYMPH # 2.0 103/ul Normal 1.2-3.8 [facility] Comment on above: Performed By: #### P OCGLUC #### [facility] [address] [place] [address] Dr. Caroline Bell Lymphocytes/100 WBC (Bld) 20.9 % Normal 20.5-60.0 [facility] Comment on above: Performed By: #### P OCGLUC #### [facility] [address] [place] [address] Dr. Caroline Bell MANUAL DIFF REQ NO Normal [facility] Comment on above: Performed By: #### P OCGLUC #### [facility] [address] [address] [address] Caroline Bell MCH (RBC) [Entitic mass] 29.6 pg Normal 25.9-34.0 [facility] Comment on above: Performed By: #### P OCGLUC #### [facility] [address] [place] [address] Dr. Caroline Bell MCHC (RBC) [Mass/Vol] 31.6 g/dL Normal 29.9-35.2 [facility] Comment on above: Performed By: #### P OCGLUC #### [facility] [address] [place] [address] Dr. Caroline Bell MCV (RBC) [Entitic vol] 93.5 fL Normal 80.0-94.0 [facility] Comment on above: Performed By: #### P OCGLUC #### [facility] [address] [place] [address] Dr. Caroline Bell MONO # 0.7 103/ul Normal 0.3-0.8 [facility] Comment on above: Performed By: #### P OCGLUC #### [facility] [address] [place] [address] Dr. Caroline Bell Monocytes/100 WBC (Bld) 7.7 % Normal 1.7-12.0 [facility] Comment on above: Performed By: #### P OCGLUC #### [facility] [address] [place] [address] Dr. Caroline Bell NEUT # 6.2 103/ul Normal 1.4-6.5 [facility] Comment on above: Performed By: #### P OCGLUC #### [facility] [address] [place] [address] Dr. Caroline Bell Neutrophils/100 WBC (Bld) 64.8 % Normal 43.0-75.0 [facility] Comment on above: Performed By: #### P OCGLUC #### [facility] [address] [place] [address] Dr. Caroline Bell Platelet mean volume (Bld) [Entitic vol] 10.1 fL Normal 9.5-13.5 [facility] Comment on above: Performed By: #### P OCGLUC #### [facility] [address] [place], [place] [address] Dr. Caroline Bell PLT 212 103/ul Normal 150-450 [facility] Comment on above: Performed By: #### P OCGLUC #### [facility] [address] [place], [place] [address] Dr. Caroline Bell RBC 2.94 106/ul Critically low 4.70-6.10 [facility] Comment on above: Performed By: #### P OCGLUC #### [facility] [address] [place], [place] [address] Dr. Caroline Bell WBC 9.6 103/ul Normal 4.0-11.0 [facility] Comment on above: Performed By: #### P OCGLUC #### [facility] [address] [place], [place] [address] Dr. Caroline Bell ECHOCARDIO M/2D COMPLETEon 1 ECHOCARDIO M/2D COMPLETE Patient: KIM MORENO Exam Date: 06/11/2022 : 1950 Gender:M Ordering : [facility] Admission #: [id number] Family : DR IKER CORRIGAN . Order #: [id number] CLICK HERE TO VIEW EXAM ECHOCARDIOGRAM REPORT [...] on 06/19/2022 at 10:29 Approved by: Chris aTpia M.D. on 06/19/2022 at 10:32 Normal [facility] POINT OF CARE GLUCOSEon 05-19 Glucose [Mass/Vol] 136 mg/dL Critically high 74-106 T [facility] Comment on above: Performed By: #### C MREP #### [facility] [address] [address] [address] Caroline Bell Glucose [Mass/Vol] 98 mg/dL Normal 74-106 [facility] Comment on above: Performed By: #### P OCGLUC #### [facility] [address] [place] [address] Dr. Caroline Bell PROF CHEM 8 (BAS METB)on Anion gap [Moles/Vol] 13.9 mmol/L Normal [facility] Comment on above: Performed By: #### C MREP #### [facility] [address] [address] [address] Caroline Bell Calcium [Mass/Vol] 7.9 mg/dL Critically low 8.5-10.1 [facility] Comment on above: Performed By: #### C MREP #### [facility] [address] [address] [address] Caroline Bell Chloride [Moles/Vol] 110 mmol/L Critically high 98-107 [facility] Comment on above: Performed By: #### C MREP #### [facility] [address] [address] [address] Caroline Bell CO2 [Moles/Vol] 22.2 mmol/L Normal 21.0-32.0 [facility] Comment on above: Performed By: #### C MREP #### [facility] [address] [address] [address] Caroline Bell Creatinine [Mass/Vol] 1.64 mg/dL Critically high 0.70-1.30 [facility] Comment on above: Performed By: #### C MREP #### [facility] [address] [address] [address] Caroline Bell EGFR-AF [place] 50 mL/min/1.73m2 Critically low >=60 [facility] Comment on above: Performed By: #### C MREP #### [facility] [address] [address] [address] Caroline Bell EGFR-NON AF [place] 42 mL/min/1.73m2 Critically low >=60 [facility] Comment on above: Performed By: #### C MREP #### [facility] [address] [address] [address] Caroline Bell Glucose [Mass/Vol] 94 mg/dL Normal 74-106 [facility] Comment on above: Performed By: #### C MREP #### [facility] [address] [address] [address] Caroline Bell Potassium [Moles/Vol] 5.1 mmol/L Normal 3.5-5.1 [facility] Comment on above: Performed By: #### C MREP #### [facility] [address] [place] [address] Dr. Caroline Bell Sodium [Moles/Vol] 141 mmol/L Normal 136-145 [facility] Comment on above: Performed By: #### C MREP #### [facility] [address] [address] [address] Caroline Bell Urea nitrogen [Mass/Vol] 30.0 mg/dL Critically high 7.0-18.0 [facility] Comment on above: Performed By: #### C MREP #### [facility] [address] [place] [address] Dr. Caroline Bell Urea nitrogen/Creatinine [Mass ratio] 18.3 mg/mg Normal [facility] Comment on above: Performed By: #### C MREP #### [facility] [address] [place] [address] Dr. Caroline Bell PROTIMEon 06-11-2022 INR Coag (PPP) [Relative time] 2.40 {INR} Normal [facility] Comment on above: Performed By: #### V DIDI, PSASC #### [facility] [address] [place] [address] Dr. Caroline Bell INR GUIDELINES SEE BELOW Normal [facility] Comment on above: Result Comment: HANG RED INR: 2.0 - 3.0 CONDITIONS NOT LISTED BELOW 2.5 - 3.5 FOR PROSTHETIC HEART VALVE REPLACEMENT 2.5 - 3.5 RECURRENT THROMBOSIS Performed By: #### V ITJAVI, PSASC #### [facility] [address] [place] [address] Dr. Caroline Bell PT Coag (PPP) [Time] 24.5 s Critically high 9.0-11.[address] [facility] Comment on above: Performed By: #### Milan TOLBERT, PSASC #### [facility] [address] [place] [address] Dr. Caroline Bell BNPon 06-10-2022 Natriuretic peptide B (Bld) [Mass/Vol] 7103.0 pg/mL Critically high <=900.0 [facility] Comment on above: Performed By: #### C MREP #### [facility] [address] [place] [address] Dr. Caroline Bell Natriuretic peptide B (Bld) [Mass/Vol] 6731.0 pg/mL Critically high <=900.0 [facility] Comment on above: Performed By: #### I NSULIN #### [facility] [address] [place] [address] Dr. Caroline Bell CARDIAC ANGEL 3-6on 2 CK [Catalytic activity/Vol] 47 U/L Normal 39-[address] [facility] Comment on above: Performed By: #### C MREP #### [facility] [address] [place] [address] Dr. Caroline Bell CK.MB [Mass/Vol] 1.59 ng/mL Normal <=3.60 [facility] Comment on above: Performed By: #### C MREP #### [facility] [address] [place], [place] [id number] Dr. Caroline Bell HSTROP 10.5 pg/mL Normal 4.0-76.1 [facility] Comment on above: Result Comment: CUT- OFF POINTS HAVE BEEN ESTABLISHED BASED ON THE FOURTH UNIVERSAL DEFINITIONS OF MYOCARDIAL INFARCTION. THE UPPER REFERENCE LIMIT (URL) OF TROPONIN, DEFINED THE 99TH PERCENTILE OF cTnI DISTRIBUTION IN A REFERENCE POPULATION, HAS BEEN CONFIRMED THE DECISION THRESHOLD FOR NM DIAGNOSIS. Performed By: #### C MREP #### [facility] [address] [place] [address] Dr. Caroline Bell CK [Catalytic activity/Vol] 58 U/L Normal 39-308 [facility] Comment on above: Performed By: #### C MREP #### [facility] [address] [place] [address] Dr. Caroline Bell CK.MB [Mass/Vol] 1.90 ng/mL Normal <=3.60 [facility] Comment on above: Performed By: #### C MREP #### [facility] [address] [place] [address] Dr. Caroline Bell HSTROP 10.8 pg/mL Normal 4.0-76.1 [facility] Comment on above: Result Comment: CUT- OFF POINTS HAVE BEEN ESTABLISHED BASED ON THE FOURTH UNIVERSAL DEFINITIONS OF MYOCARDIAL INFARCTION. THE UPPER REFERENCE LIMIT (URL) OF TROPONIN, DEFINED THE 99TH PERCENTILE OF cTnI DISTRIBUTION IN A REFERENCE POPULATION, HAS BEEN CONFIRMED THE DECISION THRESHOLD FOR NM DIAGNOSIS. Performed By: #### C MREP #### [facility] [address] [place] [address] Dr. Caroline Bell CARDIAC ANGEL ADMITon 022 CK [Catalytic activity/Vol] 62 U/L Normal 39-308 [facility] Comment on above: Performed By: #### B ANALYSIS SPECIALIST, CMADM, BMP #### [facility] [address] [place] [address] Dr. Caroline Bell CK.MB [Mass/Vol] 1.70 ng/mL Normal <=3.60 [facility] Comment on above: Performed By: #### B ANALYSIS SPECIALIST, CMADM, BMP #### [facility] [address] [place] [address] Dr. Caroline Bell HSTROP 10.7 pg/mL Normal 4.0-76.[address] [facility] Comment on above: Result Comment: CUT- OFF POINTS HAVE BEEN ESTABLISHED BASED ON THE FOURTH UNIVERSAL DEFINITIONS OF MYOCARDIAL INFARCTION. THE UPPER REFERENCE LIMIT (URL) OF TROPONIN, DEFINED THE 99TH PERCENTILE OF cTnI DISTRIBUTION IN A REFERENCE POPULATION, HAS BEEN CONFIRMED THE DECISION THRESHOLD FOR NM DIAGNOSIS. Performed By: #### B ANALYSIS SPECIALIST, CMADM, BMP #### [facility] [address] [place] [address] Dr. Caroline Bell ADITHYA 159 ng/mL Critically high 16-96 [facility] Comment on above: Performed By: #### B ANALYSIS SPECIALIST, CMADM, BMP #### [facility] [address] [place] [address] Dr. Caroline Bell CBC AUTO DIFFon 06-10-2022 BASO # 0.0 103/ul Normal 0.0-0.1 [facility] Comment on above: Performed By: #### V ITAD, PSASC #### [facility] [address] [place] [address] Dr. Caroline Bell Basophils/100 WBC (Bld) 0.3 % Normal 0.2-2.0 [facility] Comment on above: Performed By: #### V ITAD, PSASC #### [facility] [address] [place] [address] Dr. Caroline Bell EO # 0.4 103/ul Normal 0.0-0.[address] [facility] Comment on above: Performed By: #### V ITAD, PSASC #### [facility] [address] [place] [address] Dr. Caroline Bell Eosinophils/100 WBC (Bld) 3.0 % Normal 0.9-7.[address] [facility] Comment on above: Performed By: #### V ITAD, PSASC #### [facility] [address] [place] [address] Dr. Caroline Bell Erythrocyte distribution width (RBC) [Ratio] 14.4 % Normal 11.0-15.[address] [facility] Comment on above: Performed By: #### V ITAD, PSASC #### [facility] [address] [address] [address] Caroline Bell Hematocrit (Bld) [Volume fraction] 32.5 % Critically low 42.0-54.0 [facility] Comment on above: Performed By: #### V ITAD, PSASC #### [facility] [address] [place] [address] Dr. Caroline Bell Hemoglobin (Bld) [Mass/Vol] 10.4 g/dL Critically low 14.0-18.0 [facility] Comment on above: Performed By: #### V ITAD, PSASC #### [facility] [address] [place] [address] Dr. Caroline Bell IG # 0.04 10e3/ul Critically high 0.00-0.03 [facility] Comment on above: Performed By: #### V ITAD, PSASC #### [facility] [address] [place] [address] Dr. Caroline Bell IG % 0.3 % Normal 0.0-0.5 [facility] Comment on above: Performed By: #### V ITAD, PSASC #### [facility] [address] [place] [address] Dr. Caroline Bell LYMPH # 1.6 103/ul Normal 1.2-3.8 [facility] Comment on above: Performed By: #### V ITAD, PSASC #### [facility] [address] [address] [address] Caroline Bell Lymphocytes/100 WBC (Bld) 13.4 % Critically low 20.5-60.0 [facility] Comment on above: Performed By: #### V ITAD, PSASC #### [facility] [address] [address] [address] Caroline Bell MANUAL DIFF REQ NO Normal [facility] Comment on above: Performed By: #### V ITAD, PSASC #### [facility] [address] [place] [address] Dr. Caroline Bell MCH (RBC) [Entitic mass] 30.3 pg Normal 25.9-34.[address] [facility] Comment on above: Performed By: #### V ITAD, PSASC #### [facility] [address] [place] [address] Dr. Caroline Bell MCHC (RBC) [Mass/Vol] 32.0 g/dL Normal 29.9-35.[address] [facility] Comment on above: Performed By: #### V ITAD, PSASC #### [facility] [address] [place] [address] Dr. Caroline Bell MCV (RBC) [Entitic vol] 94.8 fL Critically high 80.0-94.[address] [facility] Comment on above: Performed By: #### V ITAD, PSASC #### [facility] [address] [place] [address] Dr. Caroline Bell MONO # 0.8 103/ul Normal 0.3-0.[address] [facility] Comment on above: Performed By: #### V ITAD, PSASC #### [facility] [address] [place] [address] Dr. Caroline Bell Monocytes/100 WBC (Bld) 6.6 % Normal 1.7-12.[address] [facility] Comment on above: Performed By: #### V ITAD, PSASC #### [facility] [address] [place] [address] Dr. Caroline Bell NEUT # 9.0 103/ul Critically high 1.4-6.5 [facility] Comment on above: Performed By: #### V ITAD, PSASC #### [facility] [address] [place] [address] Dr. Caroline Bell Neutrophils/100 WBC (Bld) 76.4 % Critically high 43.0-75.[address] [facility] Comment on above: Performed By: #### V ITAD, PSASC #### [facility] [address] [place] [address] Dr. Caroline Bell Platelet mean volume (Bld) [Entitic vol] 10.2 fL Normal 9.5-13.[address] [facility] Comment on above: Performed By: #### V ITAD, PSASC #### [facility] [address] [address] [address] Caroline Bell PLT 240 103/ul Normal 150-[address] [facility] Comment on above: Performed By: #### V ITAD, PSASC #### [facility] [address] [place] [address] Dr. Caroline Bell RBC 3.43 106/ul Critically low 4.70-6.10 [facility] Comment on above: Performed By: #### V ITAD, PSASC #### [facility] [address] [place] [address] Dr. Caroline Bell WBC 11.7 103/ul Critically high 4.0-11.0 [facility] Comment on above: Performed By: #### V ITAD, PSASC #### [facility] [address] [place] [address] Dr. Caroline Bell BASO # 0.1 103/ul Normal 0.0-0.[address] [facility] Comment on above: Performed By: #### V ITAD, PSASC #### [facility] [address] [place] [address] Dr. Caroline Bell Basophils/100 WBC (Bld) 0.5 % Normal 0.2-2.[address] [facility] Comment on above: Performed By: #### V ITAD, PSASC #### [facility] [address] [place] [address] Dr. Caroline Bell EO # 0.6 103/ul Normal 0.0-0.[address] [facility] Comment on above: Performed By: #### V ITAD, PSASC #### [facility] [address] [place] [address] Dr. Caroline Bell Eosinophils/100 WBC (Bld) 4.2 % Normal 0.9-7.[address] [facility] Comment on above: Performed By: #### V ITAD, PSASC #### [facility] [address] [place] [address] Dr. Caroline Bell Erythrocyte distribution width (RBC) [Ratio] 14.5 % Normal 11.0-15.[address] [facility] Comment on above: Performed By: #### V ITAD, PSASC #### [facility] [address] [place] [address] Dr. Caroline Bell Hematocrit (Bld) [Volume fraction] 35.3 % Critically low 42.0-54.0 [facility] Comment on above: Performed By: #### V ITAD, PSASC #### [facility] [address] [place] [address] Dr. Caroline Bell Hemoglobin (Bld) [Mass/Vol] 11.2 g/dL Critically low 14.0-18.0 [facility] Comment on above: Performed By: #### V ITAD, PSASC #### [facility] [address] [place] [address] Dr. Caroline Bell IG # 0.05 10e3/ul Critically high 0.00-0.03 [facility] Comment on above: Performed By: #### V ITAD, PSASC #### [facility] [address] [place] [address] Dr. Caroline Bell IG % 0.4 % Normal 0.0-0.5 [facility] Comment on above: Performed By: #### V ITAD, PSASC #### [facility] [address] [place] [address] Dr. Caroline Bell LYMPH # 1.8 103/ul Normal 1.2-3.8 [facility] Comment on above: Performed By: #### V ITAD, PSASC #### [facility] [address] [place] [address] Dr. Caroline Bell Lymphocytes/100 WBC (Bld) 13.1 % Critically low 20.5-60.0 [facility] Comment on above: Performed By: #### V ITAD, PSASC #### [facility] [address] [place] [address] Dr. Caroline Bell MANUAL DIFF REQ NO Normal [facility] Comment on above: Performed By: #### V ITAD, PSASC #### [facility] [address] [place] [address] Dr. Caroline Bell MCH (RBC) [Entitic mass] 30.3 pg Normal 25.9-34.[address] [facility] Comment on above: Performed By: #### V ITAD, PSASC #### [facility] [address] [place] [address] Dr. Caroline Bell MCHC (RBC) [Mass/Vol] 31.7 g/dL Normal 29.9-35.[address] [facility] Comment on above: Performed By: #### V ITAD, PSASC #### [facility] [address] [place] [address] Dr. Caroline Bell MCV (RBC) [Entitic vol] 95.4 fL Critically high 80.0-94.[address] [facility] Comment on above: Performed By: #### V ITAD, PSASC #### [facility] [address] [place] [address] Dr. Caroline Bell MONO # 0.8 103/ul Normal 0.3-0.[address] [facility] Comment on above: Performed By: #### V ITAD, PSASC #### [facility] [address] [place] [address] Dr. Caroline Bell Monocytes/100 WBC (Bld) 5.6 % Normal 1.7-12.[address] [facility] Comment on above: Performed By: #### V ITAD, PSASC #### [facility] [address] [place] [address] Dr. Caroline Bell NEUT # 10.6 103/ul Critically high 1.4-6.5 [facility] Comment on above: Performed By: #### V ITAD, PSASC #### [facility] [address] [place] [address] Dr. Caroline Bell Neutrophils/100 WBC (Bld) 76.2 % Critically high 43.0-75.[address] [facility] Comment on above: Performed By: #### V ITAD, PSASC #### [facility] [address] [place] [address] Dr. Caroline Bell Platelet mean volume (Bld) [Entitic vol] 10.0 fL Normal 9.5-13.[address] [facility] Comment on above: Performed By: #### V ITAD, PSASC #### [facility] [address] [place], [place] [address] Dr. Caroline Bell PLT 252 103/ul Normal 150-[address] [facility] Comment on above: Performed By: #### V ITAD, PSASC #### [facility] [address] [place], [place] [address] Dr. Caroline Bell RBC 3.70 106/ul Critically low 4.70-6.10 [facility] Comment on above: Performed By: #### V ITAD, PSASC #### [facility] [address] [place], [place] [address] Dr. Caroline Bell WBC 13.9 103/ul Critically high 4.0-11.0 [facility] Comment on above: Performed By: #### V ITAD, PSASC #### [facility] [address] [place], [place] [address] ABD/PELVIS WO CONon [...] FERNANDO GONZÁLES Date: 2022-06-10 00:[address] [facility] CT CHEST WO CONon 06-10-2022 CT [...] FERNANDO GONZÁLES Date: 2022-06-10 00:[address] [facility] CT CSPINE WO CONon 2 CT [...] MARI SO Date: 2022-06-10 00:[address] [facility] CT HEAD WO CONon 06-10-2022 CT [...] AMEYA TANNER Date: 2022-06-10 00:[address] [facility] CT LSPINE WO CONon CT LSPINE WO CON EXAM: CT LSGARFIELD WO C ON HISTORY: The patient is [...] MARI SO Date: 2022-06-10 00:[address] [facility] Covid-19 PCR ([facility])on 05-19 SARS-CoV-2 (COVID-19) RNA DANILO+probe Ql (Unsp spec) Not detected Normal NOT DETECTED [facility] Comment on above: Result Comment: When [...] for this test is supported by the [employer] and Human Service's declaration that [...] Performed By: #### V ITAD, PSASC #### [facility] [address] [place] [address] Dr. Caroline Bell D-DIMERon 06-10-2022 D-DIMER 5.83 mg/L FEU Critically high <=0.59 [facility] Comment on above: Performed By: #### I NSULIN #### [facility] [address] [place] [address] Dr. Caroline Bell D-DIMER COMMENTS SEE BELOW Normal [facility] Comment on above: Result Comment: Incr [...] hospitalization. Performed By: #### I NSULIN #### [facility] [address] [place] [address] Dr. Caroline Bell DIGOXINon 06-10-2022 DIG 1.1 ng/mL Normal 0.9-2.0 [facility] Comment on above: Performed By: #### C MREP #### [facility] [address] [place] [address] Dr. Caroline Bell DIG 1.5 ng/mL Normal 0.9-2.0 [facility] Comment on above: Performed By: #### V ITAD, PSASC #### [facility] [address] [place] [address] Dr. Caroline Bell ER URINE PROFILEon 2 Bilirubin Ql (U) Negative Normal NEGATIVE [facility] Comment on above: Performed By: #### P OCGLUC #### [facility] [address] [place] [address] Dr. Caroline Bell Clarity (U) CLEAR Normal CLEAR [facility] Comment on above: Performed By: #### P OCGLUC #### [facility] [address] [place] [address] Dr. Caroline Bell Color (U) LT. YELLOW Normal YELLOW [facility] Comment on above: Performed By: #### P OCGLUC #### [facility] [address] [place] [address] Dr. Caroline Bell ERUAHD A micrscopic examination will be performed if indicated. Normal [facility] Comment on above: Performed By: #### P OCGLUC #### [facility] [address] [address] [address] Caroline Bell Glucose Ql (U) Negative Normal NEGATIVE [facility] Comment on above: Performed By: #### P OCGLUC #### [facility] [address] [address] [address] Caroline Bell Hemoglobin Ql (U) Negative Normal NEGATIVE [facility] Comment on above: Performed By: #### P OCGLUC #### [facility] [address] [address] [address] Caroline Bell Ketones Ql (U) Negative Normal NEGATIVE [facility] Comment on above: Performed By: #### P OCGLUC #### [facility] [address] [address] [address] Caroline Bell LEUKOCYTES Negative Normal NEGATIVE [facility] Comment on above: Performed By: #### P OCGLUC #### [facility] [address] [address] [address] Caroline Bell Nitrite Ql (U) Negative Normal NEGATIVE [facility] Comment on above: Performed By: #### P OCGLUC #### [facility] [address] [address] [address] Caroline Bell pH (U) 6.0 [pH] Normal 5-9 [facility] Comment on above: Performed By: #### P OCGLUC #### [facility] [address] [address] [address] Caroline Bell SPEC GRAVITY 1.025 Normal 1.005-<=1.025 [facility] Comment on above: Performed By: #### P OCGLUC #### [facility] [address] [address] [address] Caroline Bell UA PROTEIN Negative Normal NEGATIVE/ TRACE [facility] Comment on above: Performed By: #### P OCGLUC #### [facility] [address] [address] [address] Caroline Bell UR MICRO IND NOT INDICATED Normal [facility] Comment on above: Performed By: #### P OCGLUC #### [facility] [address] [address] [address] Caroline Bell Urobilinogen Qn (U) 0.2 {Sophia'U}/dL Normal 0.2 - 1. 0 [facility] Comment on above: Performed By: #### P OCGLUC #### [facility] [address] [address] [address] Caroline Bell POINT OF CARE GLUCOSEon 05-19 Glucose [Mass/Vol] 121 mg/dL Critically high [address] [place] [address] Comment on above: Performed By: #### P OCGLUC #### [facility] [address] [address] [address] Caroline Bell Glucose [Mass/Vol] 121 mg/dL Critically high [address] [place] [address] Comment on above: Performed By: #### V ITAD, PSASC #### [facility] [address] [place] [address] Dr. Caroline Bell Glucose [Mass/Vol] 120 mg/dL Critically high [address] [place] [address] Comment on above: Performed By: #### V ITAD, PSASC #### [facility] [address] [place] [address] Dr. Caroline Bell Glucose [Mass/Vol] 131 mg/dL Critically high [address] [place] [address] Comment on above: Performed By: #### V ITAD, PSASC #### [facility] [address] [place] [address] Dr. Caroline Bell Glucose [Mass/Vol] 496 mg/dL Critically high [address] [place] [address] Comment on above: Performed By: #### P OCGLUC #### [facility] [address] [address] [address] Caroline Bell Glucose [Mass/Vol] 316 mg/dL Critically high [address] [place] [address] Comment on above: Performed By: #### V ITAD, PSASC #### [facility] [address] [place] [address] Dr. Caroline Bell Glucose [Mass/Vol] 240 mg/dL Critically high [address] [place] [address] Comment on above: Performed By: #### P OCGLUC #### [facility] [address] [address] [address] Caroline Bell Glucose [Mass/Vol] 169 mg/dL Critically high 74-106 [facility] Comment on above: Performed By: #### C MREP #### [facility] [address] [address] [address] Caroline Bell Glucose [Mass/Vol] 117 mg/dL Critically high 74-106 [facility] Comment on above: Performed By: #### I NSULIN #### [facility] [address] [place] [address] Dr. Caroline Bell PROF 14(COMP METB)on 022 Albumin [Mass/Vol] 3.0 g/dL Critically low 3.4-5.0 [facility] Comment on above: Performed By: #### C MREP #### [facility] [address] [place] [address] Dr. Caroline Bell Albumin/Globulin [Mass ratio] 0.9 {ratio} [facility] Comment on above: Performed By: #### C MREP #### [facility] [address] [address] [address] Caroline Bell ALP [Catalytic activity/Vol] 80 U/L Normal 46-116 [facility] Comment on above: Performed By: #### C MREP #### [facility] [address] [place] [address] Dr. Caroline Bell ALT [Catalytic activity/Vol] 13 U/L Critically low 16-63 [facility] Comment on above: Performed By: #### C MREP #### [facility] [address] [place] [address] Dr. Caroline Bell Anion gap [Moles/Vol] 8.0 mmol/L Normal [facility] Comment on above: Performed By: #### C MREP #### [facility] [address] [address] [address] Caroline Bell AST [Catalytic activity/Vol] 13 U/L Critically low 15-37 [facility] Comment on above: Performed By: #### C MREP #### [facility] [address] [address] [address] Caroline Bell Bilirubin [Mass/Vol] 0.3 mg/dL Normal 0.2-1.0 [facility] Comment on above: Performed By: #### C MREP #### [facility] [address] [address] [address] Caroline Bell Calcium [Mass/Vol] 8.4 mg/dL Critically low 8.5-10.1 [facility] Comment on above: Performed By: #### C MREP #### [facility] [address] [address] [address] Caroline Bell Chloride [Moles/Vol] 108 mmol/L Critically high 98-107 [facility] Comment on above: Performed By: #### C MREP #### [facility] [address] [place] [address] Dr. Caroline Bell CO2 [Moles/Vol] 28.1 mmol/L Normal 21.0-32.0 [facility] Comment on above: Performed By: #### C MREP #### [facility] [address] [address] [address] Caroline Bell Creatinine [Mass/Vol] 1.69 mg/dL Critically high 0.70-1.30 [facility] Comment on above: Performed By: #### C MREP #### [facility] [address] [place] [address] Dr. Caroline Bell EGFR-AF [place] 49 mL/min/1.73m2 Critically low >=60 [facility] Comment on above: Performed By: #### C MREP #### [facility] [address] [address] [address] Caroline Bell EGFR-NON AF [place] 40 mL/min/1.73m2 Critically low >=60 [facility] Comment on above: Performed By: #### C MREP #### [facility] [address] [address] [address] Caroline Bell Globulin (S) [Mass/Vol] 3.3 g/dL Normal [facility] Comment on above: Performed By: #### C MREP #### [facility] [address] [address] [address] Caroline Bell Glucose [Mass/Vol] 220 mg/dL Critically high 74-106 [facility] Comment on above: Performed By: #### C MREP #### [facility] [address] [address] [address] Caroline Bell Potassium [Moles/Vol] 5.1 mmol/L Normal 3.5-5.1 [facility] Comment on above: Performed By: #### C MREP #### [facility] [address] [address] [address] Caroline Bell Protein [Mass/Vol] 6.3 g/dL Critically low 6.4-8.2 [facility] Comment on above: Performed By: #### C MREP #### [facility] [address] [address] [address] Caroline Bell Sodium [Moles/Vol] 139 mmol/L Normal 136-145 [facility] Comment on above: Performed By: #### C MREP #### [facility] [address] [address] [address] Caroline Bell Urea nitrogen [Mass/Vol] 32.0 mg/dL Critically high 7.0-18.0 [facility] Comment on above: Performed By: #### C MREP #### [facility] [address] [address] [address] Caroline Bell Urea nitrogen/Creatinine [Mass ratio] 18.9 mg/mg Normal [facility] Comment on above: Performed By: #### C MREP #### [facility] [address] [address] [address] Caroline Bell PROF CHEM 8 (BAS METB)on Anion gap [Moles/Vol] 14.2 mmol/L Normal [facility] Comment on above: Performed By: #### I NSULIN #### [facility] [address] [address] [address] Caroline Bell Calcium [Mass/Vol] 8.8 mg/dL Normal 8.5-10.1 [facility] Comment on above: Performed By: #### I NSULIN #### [facility] [address] [address] [address] Caroline Bell Chloride [Moles/Vol] 110 mmol/L Critically high 98-107 [facility] Comment on above: Performed By: #### I NSULIN #### [facility] [address] [address] [address] Caroline Bell CO2 [Moles/Vol] 21.7 mmol/L Normal 21.0-32.0 [facility] [facility] Comment on above: Performed By: #### I NSULIN #### [facility] [address] [address] [address] Caroline Bell Creatinine [Mass/Vol] 2.07 mg/dL Critically high 0.70-1.30 [facility] Comment on above: Performed By: #### I NSULIN #### [facility] [address] [address] [address] Caroline Bell EGFR-AF [place] 39 mL/min/1.73m2 Critically low >=60 [facility] Comment on above: Performed By: #### I NSULIN #### [facility] [address] [address] [address] Caroline Bell EGFR-NON AF [place] 32 mL/min/1.73m2 Critically low >=60 [facility] Comment on above: Performed By: #### I NSULIN #### [facility] [address] [address] [address] Caroline Bell Glucose [Mass/Vol] 126 mg/dL Critically high 74-106 [facility] Comment on above: Performed By: #### I NSULIN #### [facility] [address] [address] [address] Caroline Bell Potassium [Moles/Vol] 4.9 mmol/L Normal 3.5-5.1 [facility] Comment on above: Performed By: #### I NSULIN #### [facility] [address] [address] [address] Caroline Bell Sodium [Moles/Vol] 141 mmol/L Normal 136-145 [facility] Comment on above: Performed By: #### I NSULIN #### [facility] [address] [address] [address] Caroline Bell Urea nitrogen [Mass/Vol] 34.0 mg/dL Critically high 7.0-18.0 [facility] Comment on above: Performed By: #### I NSULIN #### [facility] [address] [address] [address] Caroline Bell Urea nitrogen/Creatinine [Mass ratio] 16.4 mg/mg Normal [facility] Comment on above: Performed By: #### I NSULIN #### [facility] [address] [place] [address] Dr. Caroline Bell PROTIMEon 06-10-2022 INR Coag (PPP) [Relative time] 1.43 {INR} Normal [facility] Comment on above: Performed By: #### I NSULIN #### [facility] [address] [place] [address] Dr. Caroline Bell INR GUIDELINES SEE BELOW Normal [facility] Comment on above: Result Comment: HANG RED INR: 2.0 - 3.0 CONDITIONS NOT LISTED BELOW 2.5 - 3.5 FOR PROSTHETIC HEART VALVE REPLACEMENT 2.5 - 3.5 RECURRENT THROMBOSIS Performed By: #### I NSULIN #### [facility] [address] [place] [address] Dr. Caroline Bell PT Coag (PPP) [Time] 15.1 s Critically high 9.0-11.[address] [facility] Comment on above: Performed By: #### I NSULIN #### [facility] [address] [place] [address] Dr. Caroline Bell PTTon 06-10-2022 aPTT Coag (Bld) [Time] 28.2 s Normal 22.3-36.2 [facility] Comment on above: Performed By: #### I NSULIN #### [facility] [address] [place] [address] Dr. Caroline Bell T4on 06-10-2022 T4 [Mass/Vol] 4.40 ug/dL Critically low 4.50-12.10 [facility] Comment on above: Performed By: #### V ITAD, PSASC #### [facility] [address] [place] [address] Dr. Caroline Bell TSHon 06-10-2022 TSH 0.911 uIU/mL Normal 0.358-3.740 [facility] Comment on above: Performed By: #### P OCGLUC #### [facility] [address] [place] [address] HEAD WO CONon [...] TONY IYER Date: 2022-05-07 07:[address] [facility] CBC AUTO DIFFon 05-02-2022 BASO # 0.1 103/ul Normal 0.0-0.[address] [facility] Comment on above: Performed By: #### V ITAD, PSASC #### [facility] [address] [place] [address] Dr. Caroline Bell Basophils/100 WBC (Bld) 0.5 % Normal 0.2-2.[address] [facility] Comment on above: Performed By: #### V ITAD, PSASC #### [facility] [address] [place] [address] Dr. Caroline Bell EO # 0.6 103/ul Normal 0.0-0.7 [facility] Comment on above: Performed By: #### V ITAD, PSASC #### [facility] [address] [place] [address] Dr. Caroline Bell Eosinophils/100 WBC (Bld) 4.6 % Normal 0.9-7.0 [facility] Comment on above: Performed By: #### V ITAD, PSASC #### [facility] [address] [place] [address] Dr. Caroline Bell Erythrocyte distribution width (RBC) [Ratio] 14.4 % Normal 11.0-15.0 [facility] Comment on above: Performed By: #### V ITAD, PSASC #### [facility] [address] [place] [address] Dr. Caroline Bell Hematocrit (Bld) [Volume fraction] 34.7 % Critically low 42.0-54.0 [facility] Comment on above: Performed By: #### V ITAD, PSASC #### [facility] [address] [place] [address] Dr. Caroline Bell Hemoglobin (Bld) [Mass/Vol] 11.1 g/dL Critically low 14.0-18.0 [facility] Comment on above: Performed By: #### V ITAD, PSASC #### [facility] [address] [place] [address] Dr. Caroline Bell IG # 0.05 10e3/ul Critically high 0.00-0.03 [facility] Comment on above: Performed By: #### V ITAD, PSASC #### [facility] [address] [place] [address] Dr. Caroline Bell IG % 0.4 % Normal 0.0-0.5 [facility] Comment on above: Performed By: #### V ITAD, PSASC #### [facility] [address] [place] [address] Dr. Caroline Bell LYMPH # 1.8 103/ul Normal 1.2-3.8 [facility] Comment on above: Performed By: #### V ITAD, PSASC #### [facility] [address] [place] [address] Dr. Caroline Bell Lymphocytes/100 WBC (Bld) 13.4 % Critically low 20.5-60.[address] [facility] Comment on above: Performed By: #### V ITAD, PSASC #### [facility] [address] [place] [address] Dr. Caroline Bell MANUAL DIFF REQ NO Normal [facility] Comment on above: Performed By: #### V ITAD, PSASC #### [facility] [address] [place] [address] Dr. Caroline Bell MCH (RBC) [Entitic mass] 29.7 pg Normal 25.9-34.[address] [facility] Comment on above: Performed By: #### V ITAD, PSASC #### [facility] [address] [place] [address] Dr. Caroline Bell MCHC (RBC) [Mass/Vol] 32.0 g/dL Normal 29.9-35.[address] [facility] Comment on above: Performed By: #### V ITAD, PSASC #### [facility] [address] [place] [address] Dr. Caroline Bell MCV (RBC) [Entitic vol] 92.8 fL Normal 80.0-94.[address] [facility] Comment on above: Performed By: #### V ITAD, PSASC #### [facility] [address] [place] [address] Dr. Caroline Bell MONO # 0.9 103/ul Critically high 0.3-0.8 [facility] Comment on above: Performed By: #### V ITAD, PSASC #### [facility] [address] [place] [address] Dr. Caroline Bell Monocytes/100 WBC (Bld) 6.8 % Normal 1.7-12.[address] [facility] Comment on above: Performed By: #### V ITAD, PSASC #### [facility] [address] [place] [address] Dr. Caroline Bell NEUT # 9.7 103/ul Critically high 1.4-6.5 [facility] Comment on above: Performed By: #### V ITAD, PSASC #### [facility] [address] [address] [address] Caroline Bell Neutrophils/100 WBC (Bld) 74.3 % Normal 43.0-75.[address] [facility] Comment on above: Performed By: #### V ITAD, PSASC #### [facility] [address] [address] [address] Caroline Bell Platelet mean volume (Bld) [Entitic vol] 10.0 fL Normal 9.5-13.5 [facility] Comment on above: Performed By: #### V ITAD, PSASC #### [facility] [address] [address] [address] Caroline Bell PLT 296 103/ul Normal 150-[address] [facility] Comment on above: Performed By: #### V ITAD, PSASC #### [facility] [address] [place] [address] Dr. Caroline Bell RBC 3.74 106/ul Critically low 4.70-6.10 [facility] Comment on above: Performed By: #### V ITAD, PSASC #### [facility] [address] [place] [address] Dr. Caroline Bell WBC 13.1 103/ul Critically high 4.0-11.0 [facility] Comment on above: Performed By: #### V ITAD, PSASC #### [facility] [address] [place] [address] CSPINE WO CONon 2 CT CSPINE [...] TONY IYER Date: 2022-05-02 15:[address] [facility] CT HEAD WO CONon 05-02-2022 CT [...] TONY IYER Date: 2022-05-02 15:[address] [facility] PROTIMEon 05-02-2022 INR Coag (PPP) [Relative time] 3.49 {INR} Normal [facility] Comment on above: Performed By: #### P OCGLUC #### [facility] [address] [place] [address] Dr. Caroline Bell INR GUIDELINES SEE BELOW Normal [facility] Comment on above: Result Comment: HANG RED INR: 2.0 - 3.0 CONDITIONS NOT LISTED BELOW 2.5 - 3.5 FOR PROSTHETIC HEART VALVE REPLACEMENT 2.5 - 3.5 RECURRENT THROMBOSIS Performed By: #### P OCGLUC #### [facility] [address] [address] [address] Caroline Bell PT Coag (PPP) [Time] 34.7 s Critically high 9.0-11.[address] [facility] Comment on above: Performed By: #### P OCGLUC #### [facility] [address] [place] [address] Dr. Caroline Bell PTTon 05-02-2022 aPTT Coag (Bld) [Time] 47.0 s Critically high 22.3-36.[address] [facility] Comment on above: Performed By: #### P OCGLUC #### [facility] [address] [place], [place] [address] Dr. Caroline Bell [facility] SARS-CoV-2 (COVID-19) RNA DANILO+probe Ql (Unsp spec) Not detected Normal NOT DETECTED [facility] Comment on above: Result Comment: This test is not yet approved or cleared by the [place] FDA. When there are no FDA-approved or cleared tests available, and other criteria are met, FDA can make tests available under an emergency access mechanism called an Emergency Use Authorization (EUA). The EUA for this test is supported by the [employer] of Health and Human Service's (HHS's) declaration [...] SARS-CoV-2. Performed By: #### C MREP #### [facility] [address] [place], [place] [address] Dr. Caroline Bell SYMPTOMATIC COVID-19 ANTIGEN on 01-28-2022 EUA Statement SEE BELOW Normal [facility] Comment on above: Result Comment: This test [...] sooner. Performed By: #### I NSULIN #### [facility] [address] [place], [place] [address] Dr. Caroline Bell SARS-CoV-2 (COVID-19) RNA DANILO+probe Ql (Unsp spec) Negative Normal NEGATIVE [facility] Comment on above: Performed By: #### I NSULIN #### [facility] [address] [place], [place] [address] Dr. Caroline Bell Office Visit (Cardiology)on 09-04-2021 [...] History of Complete colonoscopy PROCEDURE DATE [id number] [place] History of Rotator cuff repair History of [...] Sodium 2 MG Oral Tabletas directed by [facility] Allergies Medication Zithromax TABS Adverse Reaction; [...] Recorded: 04Sep2021 08:49AM Heart Rate60, L Radial Gykmhynw664, RUE, Sitting Cizlkdwij08, RUE, Sitting Height5 ft 8 in Lpmdlx718 lb BMI Vvjwlhuaud49.84 kg/m2 BSA Calculated2.11 Tobacco Useb) No Fall Screeninga) No falls within the last year Signatures Electronically signed by : Nick Burton DO; Sep 04 2021 9:01AM EST (Author) Normal [employer] Tobacco Screening.on 022 Fall risk assessment a) No falls within the last year [facility] [address] DO Work Phone: Tobacco use status [facility] b) No [facility] DO Work Phone: [facility] CARDIAC STRESS/REST INJE CTIONon 01-25-2021 [facility] CARDIAC STRESS/REST INJECTION Patient Name: KIM MORENO STUDY: MYOCARDIAL PERFUSION STRESS TEST WITH LEXISCAN Performing facility: [facility], [address] [place] [address], [address] Provider: Nick Burton DO, FACC PCP: Dr. Arlene Corrigan Supervising provider: Bao Jane MD, FACC INDICATION: Chest Pain; HISTORY: Gender: M; Age: 70 y/o ; Height: 172.72 cm; Weight: 98.1672478 kg. High Cholesterol; Diabetes; Previous NM; HTN; Quit smoking 38 years ago. COMPARISON: Previous nuclear testing completed at [place]. ACCESSION NUMBER(S): [id number]; [id number]; [id number] ORDERING CLINICIAN: NICK BURTON TECHNIQUE: ONE DAY [...] changes. Electronically signed by: BAO JANE MD [facility] Vital Signs Date Time Vital Sign Value Performing Clinician Price dubose 09-08-2024 14:07-0500 Blood Pressure Location Nick NILL [facility] [place] 09-08-2024 14:07-0500 Diastolic blood pressure 74 mm[Hg] Nick NILL [facility] [place] 09-08-2024 14:07-0500 Heart rate 72 /min Nick NILL [facility] [place] 09-08-2024 14:07-0500 Respiratory rate 16 /min Nick NILL [facility] [place] 09-08-2024 14:07-0500 Systolic blood pressure 116 mm[Hg] Nick NILL [facility] [place] 12-19-2021 15:14-0400 Diastolic blood pressure 70 mm[Hg] Nick NILL [facility] 12-19-2021 15:14-0400 Heart rate 68 /min Nick NILL [facility] [place] 12-19-2021 15:14-0400 Respiratory rate 16 /min Nick NILL [facility] [place] 12-19-2021 15:14-0400 Systolic blood pressure 116 mm[Hg] Nick NILL [facility] [place] 09-04-2021 08:49-0500 Body height 172.72 cm Iker Elva Hoy Work Phone: [facility] DO Work Phone: 09-04-2021 08:49-0500 Body mass index (BMI) [Ratio] 32.84 kg/m2 Iker M Hoy Work Phone: [facility] 250 DO Work Phone: 09-04-2021 08:49-0500 Body surface area Derived from formula 2.11 m2 Iker M Hoy Work Phone: [facility] 250 DO Work Phone: 09-04-2021 08:49-0500 Body weight 97.98 kg Iker M Hoy Work Phone: [facility] [address] DO Work Phone: 09-04-2021 08:49-0500 Diastolic blood pressure 66 mm[Hg] Iker M Hoy Work Phone: [facility] [address] DO Work Phone: 09-04-2021 08:49-0500 Heart rate 60 /min Iker M Hoy Work Phone: [facility] [address] DO Work Phone: 09-04-2021 08:49-0500 Systolic blood pressure 138 mm[Hg] Iker Corrigan Work Phone: -[facility] 250 DO Work Phone: Encounters Encounter Date Encounter Type Care Provider Facility Start: 09-16-2024 ambulatory [facility] Start: 09-09-2024 ambulatory Willie Galloway acility:[facility] Start: 09-08-2024 End: 09-08-2024 ambulatory Nick SIN Facility:[facility] Start: 09-08-2024 End: 09-08-2024 Patient encounter procedure Nick SIN [facility] [place] Start: 07-28-2024 ambulatory [facility] Start: 07-13-2024 ambulatory [facility] Start: 06-29-2024 ambulatory [facility] Start: 06-21-2024 ambulatory [facility] Start: 05-19-2024 ambulatory [facility] Start: 05-04-2024 ambulatory [facility] Start: 03-30-2024 End: 03-30-2024 ambulatory [facility] Start: 03-19-2024 ambulatory [facility] Start: 02-05-2024 ambulatory [facility] Start: 01-21-2024 ambulatory GRETCHEN [facility] Start: 01-16-2024 End: 01-16-2024 ambulatory ANALI ALMONTE [facility] Start: 12-17-2023 ambulatory [facility] Start: 12-17-2023 ambulatory [facility] Start: 12-17-2023 End: 12-17-2023 ambulatory [facility] Start: 12-02-2023 ambulatory [facility] Start: 12-02-2023 End: 12-02-2023 ambulatory [facility] Start: 11-12-2023 ambulatory [facility] Start: 10-07-2023 End: 10-07-2023 ambulatory [facility] Start: 04-14-2023 End: 04-14-2023 Patient encounter procedure Caleb Wyatt [facility] Start: 12-11-2022 End: 12-12-2022 ambulatory GAVINO HUNTER [...] Facility:[facility] Start: 06-10-2022 End: 06-11-[address] KIER CORRIGAN . Facility:[facility] Start: 05-19-2022 End: 06-17-2022 ambulatory SHAIKH Ankit REYNOLDS Facility:[facility] Start: 05-09-[address] IKER CORRIGAN . Facili ty:[facility] Start: 05-06-2022 End: 05-07-[address] IKER CORRIGAN . Facility:[facility] Start: 05-02-2022 End: 05-02-[address] JASON CARVER . Facility:[facility] Start: 04-18-2022 End: 05-18-2022 ambulatory SHAIKH Ankit REYNOLDS Facility:[facility] Start: 03-18-2022 End: 04-17-2022 ambulatory Ankit RODOLFO Facility:[facility] Start: 02-15-2022 End: 03-15-2022 ambulatory SHAIKH Ankit REYNOLDS Facility:[facility] Start: 01-28-2022 End: 01-28-[address] IKER CORRIGAN . Facility:[facility] Start: 01-16-2022 End: 02-15-2022 ambulatory SHAIKH Ankit REYNOLDS Facility:[facility] Start: 01-15-2022 End: 01-16-[address] CALEB KHAN . Facility:[facility] Start: 12-19-2021 End: 12-19-2021 Patient encounter procedure Nick SIN [facility] [place] Start: 12-17-2021 End: 01-15-2022 ambulatory SHAIKH Ankit REYNOLDS Facility: Start: 09-04-2021 Office outpatient visit 25 minutes Iker Corrigan Work Phone: [facility] 250 DO Work Phone: Start: 06-01-2021 Rx Renewal Iker Corrigan Work Phone: [facility] [address] [place] Work Phone: Start: 10-14-2018 Patient encounter procedure Jonnathan Amaya Facility:[id number] Start: 03-05-2017 End: 03-06-2017 Ambulatory DEFAULT PHYSICIAN Facility:[facility] Procedures Date Procedure Procedure Detail Performing Clinician Start: 10-07-2023 Cardioversion Nick NOGUERA Start: 09-23-[address] KVNG CORRIGAN . Comment on above: Performed By: #### V ITAD, PSASC #### [facility] [address] [place] [address] Dr. Caroline Bell Start: 01-15-[address] KVNG CORRIGAN . Comment on above: Performed By: #### P SAD #### [facility] [address] [place] [address] Dr. Caroline Bell Start: 10-08-2016 Cystoscopy Nick NI LL Arthroscopy of shoulder Mukesh ael NILL Cholecystectomy Iker Stevenson Ho y Work Phone: Cholecystectomy Nick NILL Colonoscopy Nick NILL Extraction of cataract Jaydon el NILL Implantation of inse rtable loop recorder Nick NILL Insertion of inferio r vena caval filter Nick NILL Repair of musculoten dinous cuff of shoulder Iker Corrigan Work Phone: Tooth extraction Iker Stevenson H oy Work Phone: Total colonoscopy Iker Corrigan Work Phone: Comment on above: PROCEDURE DATE ; Plan of Treatment Date Care Activity Detail Author Start: 02-26-2022 FUV, Provider: Nick Burton, Status: Pen, Time: 10:45 AM [facility], Provider: Nick Burton, Status: Pen, Time: 10:45 AM [facility] [address] DO Work Phone: Start: 09-04-2021 FUV, Provider: Nick Burton, Status: Pen, Time: 8:45 AM [facility], Provider: Nick Burton, Status: Pen, Time: 8:45 AM [facility] [place] Work Phone: Immunizations Immunization Date Immunization Notes Care Provider Julian melendez 07-16-2021 Pfizer-BioNTDynis COVI D-19 Vacc 30 MCG/0.3ML Intramuscular Suspension Iker Corrigan Work Phone: [facility] 250 DO Work Phone: 05-09-2021 influenza, injectable,quadrivalent, preservative free, pediatric Iker Corrigan Work Phone: [facility] 250 DO Work Phone: 02-04-2021 diphtheria, tetanus toxoids and pertussis vaccine Iker Corrigan Work Phone: [facility] 250 DO Work Phone: 11-14-2020 Pfizer-BioNTDynis COVI D-19 Vacc 30 MCG/0.3ML Intramuscular Suspension Iker Corrigan Work Phone: [facility] 250 DO Work Phone: 10-23-2020 Pfizer-BioNTech COVI D-19 Vacc 30 MCG/0.3ML Intramuscular Suspension Iker Corrigan Work Phone: [facility] 250 DO Work Phone: 10-16-2020 SARS-CoV-2 (COVID-19 ) mRNA BNT-162b2 vax Nick NILL [facility] [place] 05-24-2020 Seasonal trivalent influenza vaccine, adjuvanted, preservative free Iker Corrigan Work Phone: [facility] 250 DO Work Phone: 04-18-2020 influenza virus vacc ine, unspecified formulation Iker Corrigan Work Phone: [facility] 250 DO Work Phone: 05-18-2019 influenza virus vacc ine, unspecified formulation Iker Corrigan Work Phone: [facility] 250 DO Work Phone: 03-25-2019 Seasonal trivalent influenza vaccine, adjuvanted, preservative free Iker Corrigan Work Phone: [facility] 250 DO Work Phone: 09-22-2018 influenza, seasonal, injectable Iker M Hoy Work Phone: [facility] 250 DO Work Phone: 09-22-2018 pneumococcal polysaccharide vaccine, 23 valent Iker M Hoy Work Phone: [facility] 250 DO Work Phone: 07-18-2018 influenza virus vacc ine, unspecified formulation Iker M Hoy Work Phone: [facility] 250 DO Work Phone: 04-05-2018 influenza, injectabl e, quadrivalent, preservative free Iker M Hoy Work Phone: [facility] 250 DO Work Phone: 07-07-2017 pneumococcal conjuga te vaccine, 13 valent Iker M Hoy Work Phone: [facility] 250 DO Work Phone: 03-26-2017 Seasonal trivalent influenza vaccine, adjuvanted, preservative free Iker Stevenson Hoy Work Phone: [facility] 250 DO Work Phone: 08-18-2016 pneumococcal polysaccharide vaccine, 23 valent Iker M Hoy Work Phone: [facility] 250 DO Work Phone: Payers Date Payer Category Payer Self-pay [id number] 1958 Private Health Insurance [id number] 1958 Self-pay [id number] 1950 Unknown [id number] 2.16. [id number] 1950 Unknown [id number] 2.16.84 0.1.040893.3.579.2.593 1950 Unknown [id number] 2.16.84 0.1.337642.3.579.2.593 1950 Unknown [id number] 2.16.84 0.1.818878.3.579.2.593 1950 Unknown [id number] 2.16.84 0.1.895383.3.579.2.593 1950 Unknown [id number] 2.16.84 0.1.161361.3.579.2.593 1950 Unknown [id number] 2.16.84 0.1.691670.3.579.2.593 1950 Unknown [id number] 2.16.84 0.1.728976.3.579.2.593 1951 Unknown [id number] 2.16.84 0.1.535201.3.579.2.593 1951 Unknown [id number] 2.16.84 0.1.055257.3.579.2.593 1951 Unknown [id number] 2.16.84 0.1.107373.3.579.2.593 1951 Unknown [id number] 2.16.84 0.1.028032.3.579.2.593 1950 Unknown [id number] 2.16.84 0.1.989347.3.579.2.593 1950 Unknown [id number] 2.16.84 0.1.205546.3.579.2.593 1950 Unknown [id number] 2.16.84 0.1.069786.3.579.2.593 1951 Unknown [id number] 2.16.84 0.1.448670.3.579.2.593 1951 Unknown [id number] 2.16.84 0.1.464414.3.579.2.593 1950 Unknown [id number] 2.16.84 0.1.831815.3.579.2.593 1950 Unknown [id number] 2.16.84 0.1.061733.3.579.2.593 1950 Unknown [id number] 2.16.84 0.1.617055.3.579.2.593 1950 Unknown [id number] 2.16.84 0.1.973958.3.579.2.593 1951 Unknown [id number] 2.16.84 0.1.187282.3.579.2.593 1951 Unknown [id number] 2.16.84 0.1.764780.3.579.2.593 1950 Unknown [id number] 2.16.8 40.1.307865.3.579.2.727 Unknown Unknown [id number] Unknown [id number] 2.16.8 40.1.812542.3.579.2.531 Social History Date Type Detail Facility Tobacco smoking stat [facility] Unknown if ever smoked [facility] Start: 1950 Sex Assigned At Male F [facility] No alcohol use No alcohol use [facility] 250 DO Work Phone: Comment on above: QUIT CIGS 1982; 1 CUP COFFEE DAILY, DIET SODA 1 BOTTLE DAILY; Start: 12-19-2021 End: 09-08-2024 Tobacco smoking status Ex-smoker (finding) [facility] Tobacco smoking status Never [facility] Sex Assigned At Male Genera l Surgery [facility] Goals Date Patient Goal Desired Activity /State Functional Status Date Assessment Result Facility 09-08-2024 Functional Status N/A [facility] General Surgery [facility] Clinical Notes 01-18-2022 to 09-08-2024 Note Date & Type Note Facility 09-08-2024 Note General Surgery Offi ce/Clinic Note Chief Complaint consultation for skin lesion HPI Staff 74 year old male presents on consultation from Dr. Corrigan for skin lesion right arm. Reports noting 3 lesions on right arm approximately one year ago. Verbalized slight increase in size over time. Reports occasional soreness. Verbalized lesion closest to wrist will occasional drainage thick yellow material. Patient on Eliquis for a.fib. History of Present Illness 74 yo male with h/o htn, CAD, atrial fibrillation, on Eliquis, hyperlipidemia, CKD, DVT/PE; bph, dementia; referred for enlarging, painful lesions right forearm; 1 year h/o enlarging lesions x 3 right forearm, scaly, sore at times; no bleeding or ulceration; no h/o skin cancer; on Eliquis daily, no NSAID use; no tobacco use. Review of Systems PHQ Score Initial Depression Screen Score: 0 SCORE ROS - Provider Constitutional: no fever, no sweats, no weight loss. Eyes: no glasses, no blurred vision, no visual loss. ENMT: no dentures, no hoarseness, no swallowing difficulties, no hearing loss, no ear infection(s), no nose bleeds. Cardiovascular: normal blood pressure, no chest pain, regular heartbeat, no heart murmur. Respiratory: no shortness of breath, no cough, no asthma, no wheezing. Gastrointestinal: no nausea, no vomiting, no diarrhea, no constipation, no blood in stool, no change in bowel habits, no abdominal pain, no hepatitis. Genitourinary: no kidney stones, no urine infection, no dysuria. Musculoskeletal: no pain, no weakness. Skin: no changing moles, no rash, yes skin lumps. Neurologic: no seizures, no epilepsy, no headache. Psychiatric: no emotional or psychiatric problem. Heme/Lymph: no bleeding problems, no anemia, no blood clots, no transfusions. Allergy/Immunologic: no swollen lymph nodes/glands, no IV drug abuse. Other: Additional ROS info: Except as noted in the above Review of Systems and in the History of Present Illness, all other systems have been reviewed and are negative or noncontributory. Physical Exam Vitals & Measurements HR: 72(Peripheral) RR: 16 BP: 116/74 HT: 68 in HT: 172.72 cm WT: 103.6 kg WT: 228.399 lb BMI: 34.73 skin: right forearm with raised keratotic lesions x3 , 8 mm, no ulceration or scab; mild tenderness; sun damaged skin Assessment/Plan 1. Neoplasm of uncertain behavior of skin of forearm (D48.5: Neoplasm of uncertain behavior of skin) plan excisional biopsy under local anesthesia at [facility], informed consent obtained. Follow-up No qualifying data available Problem List/Past Medical History Ongoing Allergic rhinitis Anticoagulant long-term use Anxiety Atrial fibrillation Benign localized hyperplasia of prostate with urinary obstruction BMI 34.0-34.9,adult Cardiomegaly Chronic pulmonary embolism CKD (chronic kidney disease), stage III Congestive heart failure COPD mixed type Coronary artery disease Deep vein thrombosis Dementia Dependent edema Depression Diabetes Family history of malignant neoplasm of prostate Feeling of incomplete bladder emptying History of myocardial infarction Hx of migraine headaches Hyperlipidemia Hypertension Microscopic hematuria Mitral valve regurgitation Neoplasm of uncertain behavior of skin of forearm Nocturia Obesity due to excess calories Post traumatic stress disorder Senile solar keratosis Historical BMI 35.0-35.9,adult Procedure/Surgical History Cardioversion (10/07/2023), Cystoscopy (10/08/2016), Arthroscopy of shoulder, Cataract extraction, Cholecystectomy, Colonoscopy, Implantation of insertable loop recorder, Insertion of inferior vena caval filter. Medications Eliquis 5 mg oral tablet, 5 mg= 1 tab(s), Oral, BID ferrous sulfate 325 mg Tab, 325 mg= 1 tab(s), Oral, BID Humalog KwikPen, 10 unit(s), SubCutaneous, TIDAC Lantus, 40 unit(s), SubCutaneous, Once a day (at bedtime) Lasix 20 mg Tab, 20 mg= 1 tab(s), Oral, Daily Metoprolol tartrate 50 mg Tab, 25 mg= 0.5 tab(s), Oral, BID simvastatin, 20 mg, Oral, Once a day (at bedtime) tamsulosin 0.4 mg Cap, 0.4 mg= 1 cap(s), Oral, Daily Zoloft 100 mg Tab, 100 mg= 1 tab(s), Oral, Daily Allergies Zithromax (Swelling of both lips) acetaminophen-oxycodone (Hallucinations) Social History Alcohol - Denies Alcohol Use, 01/17/2020 Substance Abuse - Denies Substance Abuse, 12/19/2021 Tobacco Former smoker, quit more than 30 days ago Tobacco Use:. Never Smokeless Tobacco Use:. Cigarettes, 0.5 per day. Started age 13.0 Years. Stopped age 34 Years., 09/08/2024 Family History Alcoholism: Father. Asthma: Mother. Heart disease: Mother. Hyperlipidemia: Mother. Hypertension: Mother and Father. Primary malignant neoplasm of colon: Father. Primary malignant neoplasm of prostate: Brother. Immunizations Vaccine Date Status SARS-CoV-2 (COVID-19) mRNA BNT-162b2 vax 10/16/2020 Recorded [facility] Comment on above: Result Comment: Elec tronically Signed By: MERRICK NARAYANAN, Nick Dockery\Date and Time Signed: 09/08/24 16:16 EST 03-30-2024 Note [facility]rophys[facility] Consult Note Reason [...] on file Intimate Partner Violence: Unknown (10/09/2023) [place] Safety & Environment Fear of Current or [...] Value Ventricular Rate 76 Atrial Rate 76 NE Interval 106 QRS DURATION 106 QT Interval 478 QTC CALCULATION(BAZETT) 537 P [place] -19 R-[place]ow[place] -48 T Wave [place] 29 Impression Sinus rhythm Since previous tracing with Premature atrial complexes Left axis deviation Pulmonary disease pattern Nonspecific ST and T wave abnormality Abnormal ECG When compared with ECG of 17-DEC-2023 07:59, Sinus rhythm has replaced Atrial fibrilla (more content not included)... [facility] 01-16-2024 Note Remains in sinus bra dycardia with PACs today per ECG - HR 57 bpm Continue amiodarone and metoprolol, eliquis for anticoagulation [facility] 01-16-2024 Note 1 episode of near sy ncope since the ablation, therefore amiodarone and metoprolol were decreased in half. Pt is hydrating adequately, denied fluid retention and noted weight loss since last clinic visit. RTC [address] Santillan [facility] 01-16-2024 Note Ecg today Sinus hernando ycardia [...] or any concerns, syncope, worsening symptoms. RTC [address] [place] [address] 01-16-2024 Note [facility] CARDIOLOGY PROGR ESS NOTE [...] Dr. Corrigan. Had CTA chest today at [facility]. 10/07/23 Patient underwent cardioversion to sinus rhythm [...] Judgment: Judgment normal. (more content not included)... [facility] 01-16-2024 Note Patient here for fol low [...] All other systems reviewed and are negative. [facility] 12-17-2023 Note Patient: Kim correa Procedure Summary Date: 12/17/23 Room / Location: [facility] / [facility] (Cath) Anesthesia Start: 844 Anesthesia Stop: 1338 Procedures: Ablation a-fib paroxysmal [...] no known notable events for this encounter. [facility] 12-17-2023 Note ATRIAL FIBRILLATION ABLATION PROCEDURE NOTE DATE OF PROCEDURE: 12/17/2023 PERFORMING PHYSICIAN: Dr. Wesley Santillan BLOOD BANK ATTENDANT:MCKAY CONSENT: Patient NAME OF THE PROCEDURE: Pulmonary [...] Coumadin ridge. Esophagus was mapped using the [employer] 3D mapping software and noted to be [...] of 204ms. Roxana (more content not included)... [facility] 12-17-2023 Note Arterial Line: Date/Time: 12/17/2023 8:00 [...] 1 % SubQ, 1 mL Staffing Performed: resident/WINDOW ASSEMBLER/CAA Anesthesiologist: Donell Aragon MD Resident/WINDOW ASSEMBLER: Luis Eduardo Ch MD Performed by: Luis Eduardo Ch MD Authorized by: Donell Aragon MD [facility] 12-17-2023 Note Airway Date/Time: 12/17/2023 9:10 AM Urgency: elective General Information and Staff Patient location during procedure: [place] Anesthesiologist: Donell Aragon MD Resident/WINDOW ASSEMBLER/CAA: Luis Eduardo Ch MD Performed: resident/WINDOW ASSEMBLER/CAA Indications and Patient Condition Indications for airway [...] 1 Number of other approaches attempted: 0 [facility] 12-16-2023 Note Patient: Kim correa Procedure Information Date/Time: 12/17/23829 Procedure: Ablation a-fib paroxysmal Location: [facility] EP / [facility] (Cath) Providers: Wesley Santillan MD [...] by mouth every other day. 07/02/23 07/01/24 Joe Randall NP [employer] KwikPen Insulin 100 unit/mL [...] 0.4 mg by mouth. 12/14/19 Historical Provider, [facility] 12-02-2023 Note [place] Electrophysiology Consult Note Reason for visit: Syncope/ Afib 12/02/23 Patient here for H&P prior to afib ablation scheduled for 12/17/[address] Corrigan. Had CTA chest today at [facility]. 10/07/23 Patient underwent cardioversion to sinus rhythm [...] on file Intimate Partner Violence: Unknown (10/09/2023) [place] Safety & Environment Fear of Current or [...] Value Ventricular Rate 46 Atrial Rate 46 NE Interval 248 QRS DURATION 104 QT Interval 514 QTC CALCULATION(BAZETT) 449 P [place] 25 R-[place]ow[place] -37 T Wave [place] 16 Impression Sinus bradycardia with 1st degree [...] that can h (more content not included)... [facility] 10-07-2023 Note [facility] Consult Note Reason [...] Value Ventricular Rate 46 Atrial Rate 46 NE Interval 248 QRS DURATION 104 QT Interval 514 QTC CALCULATION(BAZETT) 449 P [place] 25 R-[place]owah -37 T Wave [place] 16 Impression Sinus bradycardia with 1st degree [...] and vascular complications (more content not included)... [facility] 05-02-2022 Note PROCEDURE: XR SHOULD ER [...] authenticated by: TONY IYER Date: 2022-05-02 15:01 [facility] 01-18-2022 Hospital Discharge instructions Follow Up Care 01/18/2022 09:12:56 With:BILL NARAYANAN, Caleb Wyatt, URL Address: [facility] [address] [place] [phone]- [phone] When: Unknown [facility] Evaluation + Plan note Future Appointments Appointment Date:01/18/2022 08:30:00 AM Scheduled Provider:Caleb KHAN MD Location:[facility] Appointment Type:URO Office Visit General Surgery [place] Evaluation note No assessment inform ation available [facility] Work Phone: History of Present illness [...] to return in 6 months for follow-up. [facility] 250 DO Work Phone: Hospital course Narrative No data available for this section General Surgery [place] [facility] Discharge instructions No data available for this section General Surgery [place] Progress note No data available for this section [facility] Summary Purpose Family History No Family History [...] section and content) DATE CREATED AUTHOR 02/11/2018 [facility] DATE CREATED AUTHOR AUTHOR'S ORGANIZ ATION 10/29/2018 [facility] DATE CREATED AUTHOR AUTHOR'S ORGANIZ ATION 01/28/2021 [facility] DATE CREATED AUTHOR AUTHOR'S ORGANIZ ATION 09/04/2021 [facility] DATE CREATED AUTHOR AUTHOR'S ORGANIZ ATION 12/15/2022 [facility] DATE CREATED AUTHOR AUTHOR'S ORGANIZ ATION 09/10/2024 [facility] DATE CREATED AUTHOR AUTHOR'S ORGANIZ ATION 09/11/2024 [facility] DATE CREATED AUTHOR AUTHOR'S ORGANIZ ATION 09/20/2024 [facility] Patient Care team informatio n (unrecognized section and content) Personnel Name: Iker Corrigan MD Address: Address: [address] [place] [address] Personnel Name: Iker Corrigan MD Address: Address: [address] [place] [address] Goals (unrecognized section and content) Goals may [...] BE BASED ON THE PRIMARY CLINICAL RECORDS. [employer] [facility]. provides no warranty or guarantee of the accuracy or completeness of information in this document.
[2024-09-29 12:47] VITALS: BP 154/96; PULSE 87; TEMP 36.5; O2SAT 96
[2024-09-29 15:28] VITALS: BP 158/90; PULSE 79; O2SAT 98
[2024-09-29] MEDS: BUPIVACAINE HCL 0.5% PF 50 MG/10 ML VIAL INJ (15:36)
[2024-09-29 15:53] VITALS: BP 170/92; PULSE 80; O2SAT 97
== END 2024-09-29 16:02 | disposition home or self-care (01) ==
PROVIDERS: PCP Family Medicine; Visit Provider Surgery
PROC: (CPT 11401; principal; 2024-09-29 13:15)
DX: L72.0 Epidermal cyst (principal); L57.8 Other skin changes due to chronic exposure to nonionizing radiation; M79.601 Pain in right arm
CPT/HCPCS: 11401; 11402; 88304; J0665

== ENCOUNTER 2024-11-12 07:52 | Outpatient (OUT) | payer OTHER, SELFPAY ==
--- NOTE | 2024-11-12 08:10 | NM_ITS ---
Patient Name: KIM GARRISON MR#: [id number] : 1950 Exam Date: 11/12/2024 Ordering Doctor: GAVINO HUNTER CNP RADIOLOGY REPORT PROCEDURE: NM ADITHYA PERF SPECT REST STR COMPARISON: None. INDICATIONS: CHEST PAIN TECHNIQUE: Exam Description: Stress/Rest one day protocol gated SPECT Rest Imagin.1 mCi Tc-99m Cardiolite IV on 11/12/2024 Stress Imaging 29.8 mCi Tc-99m Cardiolite IV on 11/12/2024 Exercise Protocol: 0.4 mg Lexiscan given IV Heart Rate (bpm): Rest: 79 Max: 111 PMHR: 75 Blood Pressure: Rest: 148/80 Max: 156/84 Symptoms: Rest and peak stress ECG findings were pending and the exercise portion of the study was pending per attending physician [facility] . For more details please see separate cardiac stress test report. FINDINGS: QUALITY OF STUDY: Good PERFUSION DEFECT: LOCATION: Inferoapical and anteroapical SIZE: Small SEVERITY: Mild TYPE: Reversible WALL MOTION: LV SIZE: 99 mL. TID / TCD: 0.9 LVEF: Calculated EF 63%. SUMMARY: Abnormal Myocardial perfusion imaging study CONCLUSION:. Abnormal Myocardial perfusion imaging study, inferoapical and anteroapical ischemia Normal LV EF 63% No TID, TID 0.9 EKG stress test is reported separately Dictated by: Pb Andrade MD on 11/15/2024 at 18:20 Approved by: Pb Andrade MD on 11/15/2024 at 18:26
--- NOTE | 2024-11-12 08:30 | CA_ITS ---
Patient Name: KIM GARRISON MR#: [id number] : 1950 Exam Date: 11/12/2024 Ordering Doctor: GAVINO HUNTER CNP ECHOCARDIOGRAM REPORT PROCEDURE: CA ECHO DOPPLER COMPLETE INDICATIONS: Atrial fibrillation, chest pain, hypertension, diabetes COMPARISON: None. DESCRIPTION: COMPLETE ECHOCARDIOGRAM Real-time transthoracic echocardiography with 2D, M-mode, spectral and color flow Doppler performed. QUALITY: Technical quality was good. LEFT VENTRICLE: Normal chamber size. Normal left ventricular wall thickness. Systolic function is at the lower limits of normal. LV EF: Lower limits of normal left ventricular ejection fraction, (50-55%). DIASTOLIC: Not adequately assessed due to heart rhythm. ATRIAL SEPTUM: LEFT ATRIUM: Severe dilatation. RIGHT ATRIUM: Moderate dilatation. RIGHT VENTRICLE: Moderate dilatation. Borderline systolic function. TRICUSPID VALVE: Normal mobility and thickness. No stenosis with mild regurgitation. Doppler studies reveal moderately elevated right sided pressures. RVSP 45 mmHg MITRAL VALVE: Normal mobility and thickness. There is no mitral annular calcification. Mild mitral regurgitation. AORTIC VALVE: Normal trileaflet appearance. Normal leaflet mobility. No evidence of aortic valve stenosis. Leaflet calcifications noted. AORTIC ROOT: Normal diameter and appearance, measuring 3.7 cm. Ascending aorta is mildly dilated (3.7 cm). PULMONIC VALVE: Normal thickness and mobility. No stenosis. Trivial regurgitation. PERICARDIUM: No evidence of pericardial effusion. IVC: IVC is normal in size, does not fully collapse. PLEURA: CONCLUSION: 1. The left ventricle is normal in size and exhibits low normal systolic function. Estimated LVEF is 50 to 55%. 2. Moderately dilated right ventricle with borderline systolic function. 3. Moderate to severe biatrial dilatation. 4. Mild mitral and tricuspid regurgitation. 5. Moderately elevated right-sided pressures. RVSP is 45 mmHg. 6. No pericardial effusion. Adult Echocardiography Procedure Report Left Ventricle LVEDD (3.7 - 5.6 cm): 5.43 cm LVESD (2.2 - 4.0 cm): 4.43 cm LVIVS thickness (0.6 - 1.2 cm): 0.88 cm LVPW thickness (0.5 - 1.0 cm): 0.97 cm LVOT Max Gradient: 0.73 mm[Hg], 1.09 mm[Hg] LVOT Area (cm2): 0.47 m/s Peak Velocity (LVOT): 0.43 m/s, 0.52 m/s LVOT Diameter 2.67 cm Left Atrium LA Volume Index (2D A2C): 56.61 ml/m2 Left Atrium Systolic Dimension: 5.05 cm Mitral Valve Mitral Valve E-Wave Peak Velocity: 0.90 m/s Right Ventricle Aorta AO Root Diam: 3.71 cm Ascending Ao Diam: 3.68 cm Aortic Valve AoV Area (Peak Tawanda): 4.50 cm2, 4.31 cm2, 4.67 cm2 Peak Velocity(Antegrade Flow): 0.56 m/s, 0.62 m/s Peak Gradient(Antegrade Flow): 1.24 mm[Hg], 1.56 mm[Hg] Tricuspid Valve Peak Velocity (Regurgitant Flow): 2.94 m/s, 3.12 m/s Pulmonic Valve Peak Velocity: 0.73 m/s Peak Gradient: 3.33 mm[Hg], 1.89 mm[Hg], 1.35 mm[Hg] Right Atrium Right Atrium Systolic Pressure: 75.02 ml, 75.02 ml Dictated by: Chris Tapia M.D. on 11/12/2024 at 17:42 Approved by: Chris Tapia M.D. on 11/12/2024 at 17:48
[2024-11-12] MEDS: REGADENOSON 0.4 MG/5 ML SYRINGE IV (10:21)
--- NOTE | 2024-11-12 10:22 | PC.NURSE ---
Nursing Note Cardiac Stress Test Reviewed: Medication, allergies and patient history reviewed. Stress Test: [ x] Patient tolerated stress test well. [x ] Patient unable to tolerate walking on treadmill. Switched to Lexiscan stress test. [x ] No chest pain noted per patient [ ] Chest pain that resolved prior to leaving stress lab. [ x] No dyspnea noted. [ ] Dyspnea that resolved prior to leaving stress lab. [ x] Patient left stress lab asymptomatic and hemodynamically stable. [ ] Patient taken to the Emergency Room due to non-resolving symptoms following stress test. [ ] Patient achieved target heart rate. [ x] Patient unable to achieve target heart rate. [ ] Aminophylline administered as reversal agent to Lexiscan (Regadenoson). [ ] Nitro administered. Nursing Comments:Pt attempted TM and was unable to walk long enough to get pulse up to target. Pt was switched to Lexiscan and test was explained and pt was fine with this. He tolerated it well. NO CP or SOB noted. Pt had no symptoms prior to leaving stress lab and went to the cafeteria for breakfast prior to second set of images.
--- NOTE | 2024-11-12 18:26 | P.STRESS_ITS ---
Stress Test Stress Test Allergies Allergy/AdvReac Type Severity Reaction Status Date / Time acetaminophen (From Percocet) Allergy Severe Hallucinati Verified 09/23/24 14:57 ng azithromycin (From Zithromax) Allergy Severe Swelling Verified 09/23/24 14:57 of Lip/Tongue/Throat oxycodone (From Percocet) Allergy Severe Hallucinati Verified 09/23/24 14:57 ng Requesting physician: GAVINO HUNTER Procedure: This was a Lexiscan stress test with myocardial perfusion imaging performed at the [facility]. Intravenous line was secured. The patient was attached to electrocardiographic monitoring. Baseline vital signs and ECG were obtained. Lexiscan 0.4 mg was administered intravenously followed by administration of Cardiolite. The patient then went on to obtain myocardial perfusion imaging. Resting heart rate was 79 bpm and peak heart rate was 111 bpm. Resting blood pressure was 148/80 and peak blood pressure was 156/84. General Information: Reason for Stress Test: Chest pain pain. Cardiac History and Risk Factors: Hypertension, myocardial infarction, diabetes, hyperlipidemia. Resting 12 - Lead Electrocardiogram: Atrial fibrillation, possible anterior infarct age undetermined. Stress Test: Protocol: Pharmacologic stress test with Lexiscan. Exercise Capacity: Unable to assess. Blood Pressure Response: Resting hypertension, appropriate response. Rhythm: Atrial fibrillation with occasional PVCs. ST - Response: No ischemic response. Patient Response: No symptoms. Interpretation: 1. Negative stress test for Lexiscan induced ischemic ECG changes. 2. Atrial fibrillation noted throughout the test. 3. Myocardial perfusion images will be reported separately.
== END 2024-11-12 07:53 | disposition home or self-care (01) ==
LOC: NM 07:52
PROVIDERS: PCP Family Medicine; Visit Provider Nurse Practitioner Family
DX: R07.89 Other chest pain (principal); I48.19 Other persistent atrial fibrillation
CPT/HCPCS: 78452; 93017; 93306; A9500; J2785

== ENCOUNTER 2024-12-16 11:46 | Outpatient (OUT) | payer OTHER, SELFPAY ==
[2024-12-16 12:10] LABS: Basophils Absolute Auto 0.1 10^3/uL (0.0-0.1); Basophils Percent Auto 0.8 % (0.2-2.0); Eosinophils Absolute Auto 0.5 10^3/uL (0.0-0.7); Eosinophils Percent Auto 5.6 % (0.9-7.0); Hematocrit 39.3 % (42.0-54.0); Hemoglobin 12.9 g/dL (14.0-18.0); Immature Granulocytes Abs Auto 0.04 10^3/uL (0.00-0.03); Immature Granulocytes Pct Auto 0.4 % (0.0-0.5); Lymphocytes Percent Auto 20.7 % (20.5-60.0); Mean Corpuscular HGB Conc 32.8 g/dL (29.9-35.2); Mean Corpuscular Volume 94.5 fL (80.0-94.0); Monocytes Absolute Auto 0.7 10^3/uL (0.3-0.8); Monocytes Percent Auto 7.1 % (1.7-12.0); Neutrophils Absolute Auto 6.3 10^3/uL (1.4-6.5); Neutrophils Percent Auto 65.4 % (43.0-75.0); Platelet Count 194 10^3/uL (150-450); Red Blood Count 4.16 10^6/uL (4.70-6.10); Red Cell Distribution Width 13.6 % (11.0-15.0); White Blood Count 9.7 10^3/uL (4.0-11.0)
[2024-12-16 13:16] LABS: Anion Gap 12.1; BUN Creatinine Ratio 17.4; Carbon Dioxide 25.7 mmol/L (21.0-32.0); Chloride 107 mmol/L (98-107); Estimated GFR (African America 51 (>=60 mL/min/1.73m^2); Estimated GFR (Non-African Ame 42 (>=60 mL/min/1.73m^2); Glucose 130 mg/dL (74-106); Potassium 4.8 mmol/L (3.5-5.1); Sodium 140 mmol/L (136-145)
== END 2024-12-16 11:47 | disposition home or self-care (01) ==
LOC: LAB 11:47
PROVIDERS: PCP Family Medicine; Visit Provider Nurse Practitioner Family
DX: R94.39 Abnormal result of other cardiovascular function study (principal); R07.89 Other chest pain
CPT/HCPCS: 36415; 80048; 85025

== ENCOUNTER 2025-02-10 07:48 | Outpatient (OUT) | payer OTHER, SELFPAY ==
--- OUTSIDE RECORDS SUMMARY | 2025-02-10 07:55 | XMS_ITS | CCD ---
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 Role Phone PHYSICIAN, DEFAULT Unavailable Unavailable [...] Care Unavailable ELSA, GAVINO Admitting Unavailable GAVINO DE LA FUENTE Attending Unavailable GAVINO DE LA FUENTE Consulting Unavailable HOY ., DR DONG Primary [...] ., DR DONG Primary Care Unavailable GAVINO DE LA FUENTE Consulting Unavailable GAVINO DE LA FUENTE Admitting Unavailable GAVINO DE LA FUENTE Attending Unavailable HOY ., DR DONG Primary [...] Unavailable GRECHNY ., SAYRA CALVO Consulting Unavailrhona sharpe HOY ., DR DONG Admgil Unavailable HOY ., DR DONG Primary Care Unavailable HOY ., DR DONG Attending Unavailable HOY ., DR DONG Consulting Unavailable GONCALVES ., DR RONIT Sharpe Consulting Unavailable RADHA RODRIGUEZ Consulting Unavailable MARI [...] Attending Unavailable SHAIKH Ankit REYNOLDS Admitting Unavailable Iker Harrison MD Primary Care Provider [phone] Willie Vargas MD Attending Provider [phone] Nick Angel MD Attending Provider [phone] Nick Angel MD Attending Provider [phone] Nick ANGEL Attending Unavailable NILL, Nick Wyatt Attending Unavailable NILL, Nick Wyatt Attending Unavailable Nill, Nick Wyatt Attending Unavailable Nill, Nick Wyatt Admitting Unavailable Willie Vargas Attending Unavailab Willie Marinelli Admitting Unavailab Iker Ziegler Primary Care Unavailable JACQUE, RAND Referring Unavailable JACQUE, RAND Referring Unavailable KAYLEN, GRETCHEN Referring Unavailable JACQUE, RAND Referring Unavailable JACQUE, RAND Referring Unavailable JACQUE, RAND Referring Unavailable JACQUE, RAND Referring Unavailable JACQUE, RAND Referring Unavailable MOUKARBEL, CIRO Admitting Unavailable MOUKARBEL, CIRO Attending Unavailable ELSAGAVINO Attending Unavailable JACQUE, RAND Referring Unavailable JACQUE, RAND Referring Unavailable JACQUE, RAND Referring Unavailable ELSAGAVINO Attending Unavailable JACQUE, RAND Referring Unavailable JACQUE, RAND Attending Unavailable MOUKARBEL, CIRO Referring Unavailable JACQUE, RAND Referring Unavailable JACQUE, RAND Referring Unavailable JACQUE, RAND Referring Unavailable Unavailable Unavailable Unavailable Allergies Allergy Classification Reported Allergen(s) Allergy Type Date of Onset Reaction(s) Facility (6 sources) Azithromycin; Translations: [Zithromax TABS] Drug Allergy Lip swelling (finding) [facility] y [address] [place] Work Phone: (5 sources) Acetaminophen / oxyCODONE; Translations: [acetaminophen-ox ycodone] Drug Allergy 8 Hallucinations (finding) [facility] [place] (2 sources) Azithromycin; Translations: [Zithromax] Drug Allergy 4 [facility] Repository (3 sources) Azithromycin; Translations: [azithromycin] Drug Allergy 1 Swelling of Lip/Tongue/Throat [facility] (1 source) Acetaminophen / oxyCODONE; Translations: [OXYCODONE-ACETAM INOPHEN] Drug Allergy 8 [facility] Repository Medications Current Medications Medication Drug Class(es) Dates Sig (Normalized) Sig (Original) apixaban 5 mg oral tablet (2 sources) Factor Xa Inhibitor Start: 08-27-2024 take 1 [...] Status: Ordered digoxin 0.125 mg oral tablet (8 sources) Cardiac Glycoside Start: 01-19-2021 take 1 tablet by mouth once daily digoxin 125 mcg (0.125 mg) Tab mcg tab(s), Oral, Daily, Refills(s) 0 Start Date: 01/19/21 Status: Ordered Start: 10-14-2018 take 0.125 mg by mouth once da mayela Digoxin 125 mcg Tablet Active 0.125 MG PO Daily October 14, 2018 12:00am Start: 10-14-2018 take 1 tablet by mouth once da mayela digoxin 125 mcg (0.125 mg) Tab mcg tab(s), Oral, Daily, Refills(s) 0 Start Date: 01/19/21 Status: Ordered take 1 tablet by mouth once cole y Digoxin 125 MCG Oral Tablet TAKE 1 TABLET DAILY. Quantity: 90 Refills: 3 Ordered: 04-Sep-2021 DO Active ferrous sulfate 325 mg oral tablet (2 sources) Start: 08-27-2024 take 1 tablet by mouth twice daily ferrous sulfate 325 mg Tab 325 mg = 1 tab(s), Oral, BID, Refills(s) 0 Start Date: 08/27/24 Status: Ordered furosemide 20 mg oral tablet (2 sources) Loop Diuretic Start: 08-27-2024 take 1 tablet by mouth once daily Lasix 20 mg Tab 20 mg = 1 tab(s), Oral, Daily, Refills(s) 0 Start Date: 08/27/24 Status: Ordered Humalog KwikPen (4 sources) Start: 12-06-2021 Humalog KwikPe n 10 unit(s), SubCutaneous, TIDAC, Refills(s) 0 Start Date: 12/06/21 Status: Ordered Start: 12-06-2021 Humalog KwikPe n 15 unit(s), SubCutaneous, Refills(s) 0 Start Date: 12/06/21 Status: Ordered insulin glargine 100 unt/ml injectable solution (8 sources) Insulin Analog Start: 06-13-2021 Insulin Glargi ne (Lantus U-100 Insulin) 100 unit/mL solution Active 0 .ROUTE .COMPLEX June 12, 2021 11:00pm 40-60 at night depending on blood sugar [...] ml insulin lispro 100 unt/ml pen injector (5 sources) Insulin Analog Start: 10-14-2018 inject 25 [IU] by subcutaneous injection twice daily Insulin Lispro Active 25 UNIT Subcutaneous Twice daily October 14, 2018 1:48pm Start: 10-14-2018 Insulin Lispro (Humalog Kwikpen Insulin) 100 unit/mL Insulin Pen Active 0 .ROUTE .COMPLEX October 14, 2018 12:00am 10-15 with meals depending on blood sugar lisinopril 2.5 mg oral tablet (9 sources) Angiotensin Converting Enzyme Inhibitor Start: 12-06-2021 take 1 tablet by mouth once daily lisinopril 2.5 mg Tab 2.5 mg = 1 tab(s), Oral, Daily, Refills(s) 0 Start Date: 12/06/21 Status: Ordered Start: 10-14-2018 take 2.5 mg by mouth once cole y Lisinopril Active 2.5 MG Oral Daily October 14, 2018 1:48pm Start: 10-14-2018 take 4 tablets by mo [facility] once daily Lisinopril 2.5 mg Tablet Active 10 MG PO Daily October 14, 2018 12:00am Start: 10-14-2018 take 10 mg by mouth once daily Lisinopril Active 10 MG PO Daily October 14, 2018 1:00am take 1 tablet by olu th once daily Lisinopril 10 MG Oral Tablet Take 1 tablet daily Quantity: 90 Refills: 3 Ordered: 05-Jun-2021 Chester Ahn DO Active metFORMIN hydrochloride 1000 mg oral tablet (8 sources) Biguanide Start: 10-14-2018 take 1000 mg by mouth once daily Metformin Active 1000 MG Oral Daily October 14, 2018 1:48pm Start: 10-14-2018 take 1 tablet by lou twice daily Metformin 1,000 mg Tablet Active 1000 MG PO Twice daily October 14, 2018 12:00am take 1 tablet by lou th every twelve hours metFORMIN HCl - 1000 MG Oral Tablet TAKE 1 TABLET EVERY 12 HOURS. Quantity: 0 Refills: 0 Ordered: 04-Sep-2021 DO Active metoprolol tartrate 50 mg oral tablet (10 sources) beta-Adrenergic Jose Start: 12-06-2021 Metopr olol tartrate 50 mg Tab 25 mg = 0.5 tab(s), Oral, BID, Refills(s) 0 Start Date: 12/06/21 Status: Ordered Start: 10-14-2018 take 1 tablet by lou th twice daily Metoprolol Tartrate 50 mg Tablet Active 50 MG PO Twice daily October 14, 2018 12:00am take 1 tablet by lou th once daily Metoprolol Tartrate 50 MG Oral Tablet TAKE 1 TABLET EVERY 12 HOURS DAILY. Quantity: 180 Refills: 3 Ordered: 04-Sep-2021 DO Active nitroglycerin 0.4 mg sublingual tablet (5 sources) Nitrate Vasodilator Start: 10-14-2018 Nitroglycerin (Nitrostat) 0.4 mg Tablet, Sublingual Active 0.4 MG SUBLINGUAL every 5 to 15 minutes as needed for Chest Pain October 14, 2018 12:00am pantoprazole 40 mg extended release oral tablet (8 sources) Proton Pump Inhibitor Start: 12-14-2019 take 40 mg by mouth once daily pantoprazole 40 mg, Oral, Daily Start Date: 12/14/19 Status: Ordered Start: 10-14-2018 take 1 tablet by lou once daily Pantoprazole (Protonix) 40 mg Tablet,Delayed Release (Dr/Ec) Active 40 MG PO Daily October 14, 2018 12:00am prazosin 2 mg oral capsule (3 sources) alpha-Adrenergic Jose Start: 06-20-2021 take 1 capsule by mouth once daily at bedtime Prazosin 2 mg capsule Active 2 MG PO Daily at bedtime June 19, 2021 11:00pm sertraline 100 mg oral tablet (8 sources) Serotonin Reuptake Inhibitor Start: 06-20-2021 take 1 tablet by mouth once daily Zoloft 100 mg Tab 100 mg = 1 tab(s), Oral, Daily, as directed, Refills(s) 0 Start Date: 12/06/21 Status: Ordered simvastatin 20 mg oral tablet (10 sources) HMG-CoA Reductase Inhibitor Start: 10-14-2018 take 20 mg by mouth once daily at bedtime simvastatin 20 mg, Oral, Once a day (at bedtime) Start Date: 12/14/19 Status: Ordered tamsulosin hydrochloride 0.4 mg oral capsule (5 sources) alpha-Adrenergic Jose Start: 12-14-2019 take 1 capsule by mouth once daily tamsulosin 0.4 mg Cap 0.4 mg = 1 cap(s), Oral, Daily Start Date: 12/14/19 Status: Ordered traZODone hydrochloride 50 mg oral tablet (6 sources) Serotonin Reuptake Inhibitor Start: 06-20-2021 take 1 tablet by mouth once daily at bedtime as needed Trazodone 50 mg Tablet Active 50 MG PO Daily at bedtime as needed for Insomnia June 19, 2021 11:00pm Warfarin (8 sources) Vitamin K Antagonist Start: 12-14-2019 warfarin See Instructions, 2 mg as directed Start Date: 12/14/19 Status: Ordered Start: 10-14-2018 take 1 tablet by mouth once da mayela Warfarin 2 mg Tablet Active 2 MG PO Daily October 14, 2018 12:00am Warfarin Sodium 2 MG Oral Tablet as directed by [facility] Quantity: 0 Refills: 0 Ordered: [...] Date Documented Da te Episodic/Chronic Anxiety disorders (8 sources) Posttraumatic stress disorder; Translations: [Anxiety disorder, unspecified] Onset: 06-13-2022 12-14-2019 Chronic Cardiac dysrhythmias (9 sources) Chronic atrial fibrillation; Translations: [Atrial fibrillation] Onset: 06-19-2022 12-14-2019 Chronic Chronic kidney disease (4 sources) Chronic kidney disease stage 3 12-06-2021 Chronic Chronic obstructive pulmonary disease and bronchiectasis (9 sources) Chronic obstructive lung disease; Translations: [Chronic obstructive pulmonary disease, unspecified] Onset: 01-28-2022 12-14-2019 Chronic Conduction disorders (2 sources) Encounter for adjustment and management of other part of cardiac pacemaker; Translations: [Encounter for adjustment and management of other part of cardiac pacemaker] Onset: 12-21-2024 Chronic Congestive heart failure; nonhypertensive (10 sources) Congestive heart failure; Translations: [Heart failure, unspecified] Onset: 09-25-2022 12-06-2021 Chronic Coronary atherosclerosis and other heart disease (11 sources) Coronary arteriosclerosis; Translations: [History of myocardial infarction] Onset: 09-25-2022 12-14-2019 Chronic Delirium, dementia, and amnestic and other cognitive disorders (2 sources) Dementia 08-27-2024 Chronic Diabetes mellitus with complications (4 sources) Type 2 diabetes mellitus with hypoglycemia without coma; Translations: [TYP 2 DM W/HYPOGLYCEMIA W/O COMA] Onset: 06-18-2022 Chronic Diabetes mellitus without complication (9 sources) Diabetes mellitus; Translations: [Diabetes mellitus without [...] Onset: 06-13-2022 Chronic Disorders of lipid metabolism (11 sources) Hyperlipidemia; Translations: [Other and unspecified hyperlipidemia] Onset: 07-29-2022 12-14-2019 Chronic Diverticulosis and diverticulitis (1 source) Diverticulosis of intestine, part unspecified, without perforation or abscess without bleeding; Translations: [DVRTCLOS PRT UNS NO PERF/ABSC NO BL] Onset: 05-03-2022 Chronic Essential hypertension (7 sources) Benign essential hypertension; Translations: [Benign essential hypertension] Onset: 06-19-2022 12-14-2019 Chronic Fluid and electrolyte disorders (2 sources) Hyperkalemia 12-06-2021 Episodic Genitourinary symptoms and ill-defined conditions (8 sources) Microscopic hematuria; Translations: [Nocturia] 12-14-2019 Episodic Heart valve disorders (3 sources) Mitral valve regurgitation; Translations: [Mitral valve disorders] 08-27-2024 Chronic Hyperplasia of prostate (8 sources) Benign prostatic hypertrophy with outflow obstruction; Translations: [Benign prostatic hyperplasia with lower urinary tract symptoms] Onset: 01-15-2022 01-17-2020 Chronic Hypertension with complications and secondary hypertension (5 sources) Hypertensive heart disease with heart failure; Translations: [HTN HEART DISEASE W/HEART FAIL] Onset: 09-25-2022 Chronic Mood disorders (7 sources) Depressive disorder; Translations: [Depression] 12-14-2019 Chronic Neoplasms of unspecified nature or uncertain behavior (3 sources) Neoplasm of uncertain behavior of skin; Translations: [Neoplasm of uncertain behavior of skin] Onset: 09-08-2024 Episodic Nonspecific chest pain (2 sources) Other chest pain; Translations: [Other chest pain] Onset: 11-30-2024 Episodic Nutritional deficiencies (4 sources) Vitamin D deficiency, unspecified; Translations: [VITAMIN D DEFICIENCY UNSPECIFIED] Onset: 09-23-2022 Chronic Nutritional deficiencies (1 source) Iron deficiency; Translations: [IRON DEFICIENCY] Onset: 09-25-2022 Episodic Osteoarthritis (2 sources) Arthritis 12-14-2019 Chronic Other aftercare (1 source) Drug therapy finding; Translations: [Long-term (current) use of other medications] Episodic Other aftercare (4 sources) Long-term current use of anticoagulant 01-17-2020 Episodic Other aftercare (5 sources) Encounter for therapeutic drug level monitoring; Translations: [ENC THERAPEUTC DRUG LEVL MONITORING] Onset: 01-17-2022 Episodic Other aftercare (1 source) superintendent terminal (current) use of anticoagulants; Translations: [GROUP HOME CURRNT USE ANTICOAGULANTS] Onset: 11-18-2022 Episodic Other and ill-defined heart disease (2 sources) Cardiomegaly 08-27-2024 Chronic Other circulatory disease (3 sources) Elevated blood pressure; Translations: [Elevated blood-pressure reading, without diagnosis of hypertension] 06-13-2021 Episodic Other injuries and conditions due to external causes (2 sources) Injury of head 12-14-2019 Episodic Other nervous system disorders (4 sources) H/O: migraine 12-14-2019 Episodic Other nutritional; endocrine; and metabolic disorders (1 source) Obesity; Translations: [Obesity, unspecified] Chronic Other nutritional; endocrine; and metabolic disorders (6 sources) Body mass index 30+ - obesity [...] nutritional; endocrine; and metabolic disorders (2 sources) Obesity caused by energy imbalance 09-08-2024 Chronic Other nutritional; endocrine; and metabolic disorders (1 source) Overweight; Translations: [OVERWEIGHT] Onset: 09-25-2022 Episodic Other screening for suspected conditions (not mental disorders or infectious disease) (4 sources) Other specified abnormal findings of blood chemistry; Translations: [Encounter for screening for malignant neoplasm of prostate] Onset: 09-25-2022 Episodic Other skin disorders (7 sources) Actinic keratosis; Translations: [Actinic keratosis] Onset: 12-19-2021 Episodic Other upper respiratory disease (2 sources) Allergic rhinitis 08-27-2024 Chronic Phlebitis; thrombophlebitis and thromboembolism (16 sources) Deep venous thrombosis of lower extremity; Translations: [H/O: Deep vein thrombosis] Onset: 12-17-2021 12-14-2019 Episodic Pulmonary heart disease (4 sources) Chronic pulmonary embolism 12-06-2021 Chronic Residual codes; unclassified (4 sources) Dependent edema 12-06-2021 Episodic Residual codes; unclassified (6 sources) Family history of prostate cancer 01-17-2020 Episodic Residual codes; unclassified (6 sources) Edema, unspecified; Translations: [EDEMA UNSPECIFIED] Onset: 11-13-2022 Episodic Suicide and intentional self-inflicted injury (3 sources) Suicidal thoughts; Translations: [Suicidal ideations] 06-13-2021 Episodic Unclassified (4 sources) Finding of sensation of bladder 12-14-2019 [...] 06-19-2022 Episodic Other aftercare (1 source) Other exterminator termite (current) drug therapy; Translations: [OTH GROUP HOME CURRENT DRUG THERAPY] Onset: 06-19-2022 Episodic Other aftercare (1 source) group home (current) use of insulin; Translations: [RN LABOR AND DELIVERY CURRENT USE OF INSULIN] Onset: 06-19-2022 Episodic Other aftercare (1 source) superintendent terminal (current) use of oral hypoglycemic drugs; Translations: [GROUP HOME USE ORAL HYPOGLYCEMIC DX] Onset: 06-19-2022 Episodic [...] SHOULDER INITIAL ENC] Onset: 05-03-2022 Episodic Syncope (3 sources) Syncope and collapse; Translations: [SYNCOPE AND COLLAPSE] Onset: 06-10-2022 Episodic Results Test Name Value Interpretation Reference Range Facility 37on 01-27-2025 37 *Start baby aspirin 81mg daily *Increase lasix to 20mg daily. *Have follow-up labs in 2 weeks (around 02/10/25) - you will need to fast 10-12 hours prior. You can have water or black coffee or tea leading up to this. * Normal [facility] Follow-Upon 01-27-2025 Follow-Up [id number] Kim Garrison Jenna 1950 M Date Provider Department Center 01/27/2025 Regi-GAVINO DE LA [facility] Family History Problem Relation Age of Onset Coronary artery disease Mother Coronary artery disease Father Heart attack Father Family Status - Relation Status Age at Mother Father Level of Service:[address] [place] OFFICE/OUTPATIENT ESTABLISHED MOD MDM 30 MIN Reason for Visit and Comments: Atrial Fibrillation [80] Coronary Artery Disease [187] Hyperlipidemia [182] [facility] Orders Onlyon 01-17-2025 Orders Only [id number] Kim Garrison Jenna 1950 M Date Provider Department Center 01/17/2025 Ellen-ORYL CABRAL [facility] Family History Problem Relation Age of Onset Coronary artery disease Mother Coronary artery disease Father Heart attack Father Family Status - Relation Status Age at Mother Father [facility] HPon 12-23-2024 HP History Of Present Illness Kim Garrison is a 74 y.o. male presenting with history of CAD, PCI,AFib. Chest pain and SoB. Abnormal MPI and TTE below. Past Medical History He has a past medical history of A-fib (CMS/HCC), Abnormal ECG, Arrhythmia, Awareness under anesthesia, Bradycardia, Diabetes mellitus (CMS/HCC), HLD (hyperlipidemia), Hypertension, Obesity, and Syncope. Surgical History He has a past surgical history that includes Cholecystectomy; Rotator cuff repair; Multiple tooth extractions; Cardioversion (N/A, 08/06/2023); and Ablation of dysrhythmic focus. Social History He reports that he quit smoking about 42 years ago. His smoking use included cigarettes. He started smoking about 47 years ago. He has never used smokeless tobacco. He reports that he does not currently use alcohol. He reports that he does not use drugs. Allergies Oxycodone-acetaminophe n and Zithromax [azithromycin] Medications Medications Prior to Admission Medication Sig Dispense Refill Last Dose Eliquis 5 mg tablet Take 5 mg by mouth in the morning and at bedtime. Past Week ferrous sulfate 325 (65 Fe) MG tablet Take 325 mg by mouth with breakfast. 12/22/2024 furosemide (Lasix) 20 mg tablet Take 1 tablet (20 mg) by mouth every other day. 45 tablet 3 12/22/2024 HumaLOG KwikPen Insulin 100 unit/mL injection 10 Units. 12/22/2024 insulin glargine (Lantus) 100 unit/mL (3 mL) pen Inject 40 Units under the skin in the morning. 12/22/2024 metoprolol tartrate (Lopressor) 25 mg tablet Take 0.5 tablets (12.5 mg) by mouth in the morning and at bedtime. (Patient taking differently: Take 50 mg by mouth two times daily.) 90 tablet 3 12/23/2024 sertraline (Zoloft) 100 mg tablet Take 100 mg by mouth in the morning. 12/22/2024 simvastatin (Zocor) 20 mg tablet Take 20 mg by mouth at bedtime. 12/22/2024 tamsulosin (Flomax) 0.4 mg 24 hr capsule Take 0.4 mg by mouth. 12/23/2024 amiodarone (Pacerone) 100 mg tablet Take 1 tablet (100 mg) by mouth in the morning. (Patient not taking: Reported on 03/30/2024) 90 tablet 3 Not Taking cetirizine (ZyrTEC) 10 mg tablet Take 10 mg by mouth. Not Taking nitroglycerin (Nitrostat) 0.[address] 0.4 mg under the tongue every 5 (five) minutes if needed for chest pain. Not Taking Review of Systems Cardiovascular: Positive for leg swelling (intermittent), palpitations ( not often ) and syncope. Musculoskeletal: Positive for myalgias. Neurological: Positive for light-headedness. All other systems reviewed and are negative. Physical Exam Constitutional: Appearance: Normal appearance. He is normal weight. HENT: Head: Normocephalic and atraumatic. Right Ear: External ear normal. Left Ear: External ear normal. Eyes: Extraocular Movements: Extraocular movements intact. Pupils: Pupils are equal, round, and reactive to light. Neck: Vascular: No carotid bruit. Comments: No JVD Cardiovascular: Rate and Rhythm: Normal rate. Rhythm irregular. Pulses: Normal pulses. Heart sounds: Normal heart sounds. Pulmonary: Effort: Pulmonary effort is normal. Breath sounds: Normal breath sounds. Abdominal: General: Bowel sounds are normal. Palpations: Abdomen is soft. Musculoskeletal: General: Normal range of motion. Cervical back: Neck supple. Right lower leg: No edema. Left lower leg: No edema. Comments: +2 BLE edema, R>L Last Recorded Vitals Blood pressure 155/78, pulse 68, resp. rate 16, SpO2 98%. Relevant Results Yosvany and inferoapical ischemia MPI. RVSP 45mmHg Assessment/Plan Active Problems: Cardiovascular stress test abnormal Other chest pain Discussed risks, benefits, and alternative therapies with the patient, he understands and willing to proceed with RHC/coronary angiogram and possible PCI. Shelton Solano MD PGY-7 Interventional [facility] NURSNOTEon 12-23-2024 NURSNOTE RN educated pt on d/ c instructions. This included: site care, limited physical activity, resume normal diet, future appointments, medications, and moderate sedation instructions. RN educated pt on when to notify physician and when to go to the hospital. RN provided pt with arm sling and educated pt on importance of not using arm for 24 hours for radial sites. RN encouraged pt to voice any questions or concerns, and answered any questions or concerns if pt verbalized. Pt was wheeled off of unit with all of belongings. Normal [facility] Orders Onlyon 12-16-2024 Orders Only [id number] Kim Garrison 1950 M Date Provider Department Center 12/16/2024 LUIS FERNANDOORLY Edwin [facility] CARD [facility] Family History Problem Relation Age of Onset Coronary artery disease Mother Coronary artery disease Father Heart attack Father Family Status - Relation Status Age at Mother Father Normal [facility] 36on 11-17-2024 36 Pt's stress test was abnormal for inferoapical and anteroaplical ischemia which is new compared to his prior stress tests. Reviewed with Dr. Tapia, advise coronary angiogram. Discussed recommendations with patient and discussed risks and benefits, risks including bleeding/infection, renal impairment, stroke/PR,, needing emergent open heart surgery, vessel tearing. He understands risks/benefits and is agreeable to proceed. Given his CKD, recommend pre/post procedure hydration. Would like 100ml/hr for 4 hours pre/post procedure to help reduce risk of contrast induced nephropathy. Gavino De La Fuente APRN-[facility] Cardiovascular Medicine [facility] Telephoneon 11-17-2024 Telephone [id number] Kim Garrison 1950 M Date Provider Department Center 11/17/2024 AGVINO REYNOLDS Family History Problem Relation Age of Onset Coronary artery disease Mother Coronary artery disease Father Heart attack Father Family Status - Relation Status Age at Mother Father [facility] Office Visiton 10-20-2024 Follow-up visit [id number] Kim Garrison 1950 M Date Provider Department Center 10/20/2024 GAVINO REYNOLDS Family History Problem Relation Age of Onset Coronary artery disease Mother Coronary artery disease Father Heart attack Father Family Status - Relation Status Age at Mother Father Level of Service:93224 [place] OFFICE/OUTPATIENT ESTABLISHED MOD MDM 30 MIN Reason for Visit and Comments: Atrial Fibrillation [80] [facility] Ambulatory Visit Summaryon 0 10-12-2024 Ambulatory Visit Summary Ambulatory Visit Summary KIM GARRISON :1950 Visit Date:10/12/2024 Ambulatory Visit Instructions Your Diagnosis Solar keratosis Your Care Team Attending Physician - MERRICK NARAYANAN, Nick Wyatt Primary Care Physician - Iker Harrison MD This Is Your Medications List Contact prescribing physician if questions or concerns apixaban (Eliquis 5 mg oral tablet) ferrous sulfate (ferrous sulfate 325 mg Tab) furosemide (Lasix 20 mg Tab) insulin glargine (Lantus) insulin lispro (Humalog KwikPen) metoprolol (Metoprolol tartrate 50 mg Tab) sertraline (Zoloft 100 mg Tab) simvastatin tamsulosin (tamsulosin 0.4 mg Cap) Procedures Performed Excision of skin lesion (09/29/2024), Cardioversion (10/07/2023), Cystoscopy (10/08/2016), Arthroscopy of shoulder, Cataract extraction, Cholecystectomy, Colonoscopy, Implantation of insertable loop recorder, Insertion of inferior vena caval filter. Medications What How Much When Instructions Unchanged apixaban (Eliquis 5 mg oral tablet) 1 Tablets By Mouth 2 times a day Contact prescribing physician if questions or concerns Unchanged ferrous sulfate (ferrous sulfate 325 mg Tab) 1 Tablets By Mouth 2 times a day Contact prescribing physician if questions or concerns Unchanged furosemide (Lasix 20 mg Tab) 1 Tablets By Mouth Every day Contact prescribing physician if questions or concerns Unchanged insulin glargine (Lantus) 40 Units Subcutaneous Once a day (at bedtime) Contact prescribing physician if questions or concerns Unchanged insulin lispro (Humalog KwikPen) 10 Units Subcutaneous Before meals Contact prescribing physician if questions or concerns Unchanged metoprolol (Metoprolol tartrate 50 mg Tab) 0.5 Tablets By Mouth 2 times a day Contact prescribing physician if questions or concerns Unchanged sertraline (Zoloft 100 mg Tab) 1 Tablets By Mouth Every day as directed Contact prescribing physician if questions or concerns Unchanged simvastatin 20 Milligram By Mouth Once a day (at bedtime) Contact prescribing physician if questions or concerns Unchanged tamsulosin (tamsulosin 0.4 mg Cap) 1 Capsules By Mouth Every day Contact prescribing physician if questions or concerns Allergies Zithromax (Swelling of both lips) acetaminophen-oxycodon [...] Post traumatic stress disorder Senile solar keratosis Solar keratosis Historical - Any problem that you are no longer receiving treatment for. BMI 35.0-35.9,adult Patient Survey You may receive a survey via text or e-mail asking about your office visit. Please share your experience with us by completing your survey. We appreciate your feedback and thank you for choosing us for your care. Normal [facility] General Surgery Office/Clini c Noteon 10-12-2024 General Surgery Office/Clinic Note General Surgery Office/Clinic Note Chief Complaint post operative follow up HPI Staff 13 day post operative follow up post excisional biopsy right forearm skin lesions x 3. Denies soreness, no use of pain medication. Denies bleeding or drainage. Sutures intact. History of Present Illness 13 days s/p excisional biopsy of changing lesions right forearm x 2; pathology with solar keratosis and epidermal cysts; healing well, no pain or drainage. Review of Systems PHQ Score Initial Depression [...] weakness. Skin: no changing moles, no rash, no skin lumps. Neurologic: no seizures, no epilepsy, [...] been reviewed and are negative or noncontributory. Assessment/Plan 1. Solar keratosis (L57.0: Actinic keratosis) healing well, sutures removed; call with problem/questions. Follow-up No qualifying data available Problem List/Past [...] Post traumatic stress disorder Senile solar keratosis Solar keratosis Historical BMI 35.0-35.9,adult Procedure/Surgical History Excision of skin lesion (09/29/2024), Cardioversion (10/07/2023), Cystoscopy (10/08/2016), Arthroscopy of shoulder, [...] Daily Allergies Zithromax (Swelling of both lips) acetaminophen-oxycodon e (Hallucinations) Social History Alcohol - Denies Alcohol [...] SARS-CoV-2 (COVID-19) mRNA BNT-162b2 vax 10/16/2020 Recorded Normal [facility] Comment on above: Result Comment: Elec tronically Signed By: MERRICK NARAYANAN, Nick Alfaro.br\Date and Time Signed: 10/12/24 13:14 EST Pathology study report docum entOrdered By: Prince Moctezuma on 10-04-2024 Pathology study [facility] Other Calvin 09-29-2024 L -- ---- Specimen: [id number] Received: 09/30/24 Status: DANIEL Streeter Num: [id number] Spec Type: Surgical Subm Dr: Nick Angel MD FACS Tissues: A Skin-Other than Cyst, tag, debridement or plastic repair (MEDIAL RIGHT FOREA B Skin-Other than Cyst, tag, debridement or plastic repair (LATERAL RIGHT FORE Procedures: /10, Gross/Micro L4/2 ---- Age/ Patient Sex Location Account Attending Physician ---- Kim Garrison 74/M LABELL [id number] Nick Angel MD FACS ---- SPEC NUM: [id number] RECD: 09/30/24 STATUS: DANIEL STREETER NUM: [id number] MIKAL: 09/29/[address] [facility] DR: Nick Angel MD FACS ENTERED: 09/30/24-[address] [facility] [address]: Nidia,Adam SPEC TYPE: Surgical DEPT: DINO GARCÍA ENTERED BY: [id number] RECV BY: [id number] ORDERED: HE/10, Gross/Micro L4/2 ORDERED: HE/10, Gross/Micro L4/2 Pathological Diagnosis A. Skin lesion, medial right forearm, excision: - Epidermal inclusion cyst with solar elastosis. B. Skin lesion, lateral right forearm, excision: - Epidermal inclusion cyst with solar elastosis. COMMENT: Deep sections of A2 and B2 for microscopic examination were performed. Clinical Information Changing skin lesions x 2, right arm Gross Description Part A is received in formalin labeled with the patients name, date of , and medial right forearm lesion is a hernandez-navas, wrinkled, unoriented ellipse of skin, 1.3 x 0.8 cm, excised to depth of 0.5 cm. Eccentrically located on the skin is a pale hernandez, ill-defined, finely nodular raised lesion, 0.6 x 0.5 x 0.1 cm that is situated 0.1 cm from the closest margin. One half of the specimen is inked black with the opposing half inked green. Serial sections reveal hernandez-navas, dull and uniform cut surfaces with a deep margin situated 0.5 cm from the lesion. The bisected polar tips are entirely submitted in A1 with the trisected center of the specimen submitted in A2. (2, ns, [id number])STACEY ---- Specimen: [id number] Received: 09/30/24 Status: DANIEL Streeter Num: [id number] Spec Type: Surgical Subm Dr: Nick Angel MD FACS Tissues: A Skin-Other than Cyst, tag, debridement or plastic repair (MEDIAL RIGHT FOREA B Skin-Other than Cyst, tag, debridement or plastic repair (LATERAL RIGHT FORE Procedures: /10, Gross/Micro L4/2 ---- Patient: Juan CyaronKim fermin [id number] (Continued) ---- Specimen: [id number] Received: 09/30/24 (Continued) Gross Description (Continued) Signed (signature on file) Prince Moctezuma MD 10/04/24 1705 ---- Specimen: [id number] Received: 09/30/24 Status: DANIEL Streeter Num: [id number] Spec Type: Surgical Subm Dr: Nick Angel MD FACS Tissues: A Skin-Other than Cyst, tag, debridement or plastic repair (MEDIAL RIGHT FOREA B Skin-Other than Cyst, tag, debridement or plastic repair (LATERAL RIGHT FORE Procedures: , Gross/Micro L4/2 ---- Patient: JoshKim [id number] (Continued) ---- Specimen: [id number] Received: 09/30/24 (Continued) Gross Description (Continued) Part B is received in formalin labeled with the patients name, date of , and lateral right forearm lesion is a hernandez-navas, wrinkled, on oriented ellipse of skin, 1.7 x 0.8 cm, and excised to depth of 0.4 cm. Eccentrically located on the skin is a crusted area, 0.8 x 0.9 cm that is situated adjacent (less than 0.1 cm) from the closest margin. Serial sections reveal hernandez-navas, fibrous, dull and uniform cut surfaces with a deep margin situated 0.3 cm from the crusted area. The bisected polar tips are entirely submitted in B1 with the trisected center the specimen submitted in B2. (2, ns, [id number] B) Microscopic Description A B: Microscopic examination is performed. CPT Codes 65787 x2 ---- ---- Specimen: [id number] Received: 09/30/24 Status: DANIEL Streeter Num: [id number] Spec Type: (more content not included)... Normal [facility] Ambulatory Visit Summaryon 0 09-08-2024 Ambulatory Visit Summary Ambulatory Visit Summary KIM GARRISON :1950 Visit Date:09/08/2024 Ambulatory Visit Instructions Your Care Team Attending Physician - MERRICK NARAYANAN, Nick Wyatt Primary Care Physician - Shekhar NARAYANAN, Iker This Is Your Medications List apixaban (Eliquis [...] you for choosing us for your care. Normal [facility] Office Visiton 03-30-2024 Follow-up visit [id number] Kim Garrison 1950 M Date Provider Department Center 03/30/2024 [facility] B[facility]ARD [facility] Family History Problem Relation Age of Onset Coronary artery disease Mother Coronary artery disease Father Heart attack Father Family Status - Relation Status Age at Mother Father Level of Service:79742 [place] OFFICE/OUTPATIENT ESTABLISHED LOW MDM 20 MIN Normal [facility] PROF CHEM 8 (BAS METB)on Anion gap [Moles/Vol] 12.9 mmol/L Normal [facility] Comment on above: Performed By: #### C MREP #### [facility] [address] [address] [address] Caroline Bell Calcium [Mass/Vol] 9.4 mg/dL Normal 8.5-10.1 [facility] Comment on above: Performed By: #### C MREP #### [facility] [address] [address] [address] Caroline Bell Chloride [Moles/Vol] 106 mmol/L Normal 98-107 [facility] Comment on above: Performed By: #### C MREP #### [facility] [address] [address] [address] Caroline Bell CO2 [Moles/Vol] 28.0 mmol/L Normal 21.0-32.0 [facility] Comment on above: Performed By: #### C MREP #### [facility] [address] [address] [address] Caroline Bell Creatinine [Mass/Vol] 1.63 mg/dL Critically high 0.70-1.30 [facility] Comment on above: Performed By: #### C MREP #### [facility] [address] [address] [address] Caroline Bell EGFR-AF BULGARIAN 51 mL/min/1.73m2 Critically low >=60 [facility] Comment on above: Performed By: #### C MREP #### [facility] [address] [address] [address] Caroline Bell EGFR-NON AF BULGARIAN 42 mL/min/1.73m2 Critically low >=60 [facility] Comment on above: Performed By: #### C MREP #### [facility] [address] [address] [address] Caroline Bell Glucose [Mass/Vol] 79 mg/dL Normal 74-106 [facility] Comment on above: Performed By: #### C MREP #### [facility] [address] [address] [address] Caroline Bell Potassium [Moles/Vol] 4.9 mmol/L Normal 3.5-5.1 [facility] Comment on above: Performed By: #### C MREP #### [facility] [address] [address] [address] Caroline Bell Sodium [Moles/Vol] 142 mmol/L Normal 136-145 [facility] Comment on above: Performed By: #### C MREP #### [facility] [address] [address] [address] Caroline Bell Urea nitrogen [Mass/Vol] 32.0 mg/dL Critically high 7.0-18.0 [facility] Comment on above: Performed By: #### C MREP #### [facility] [address] [address] [address] Caroline Bell Urea nitrogen/Creatinine [Mass ratio] 19.6 mg/mg Normal [facility] Comment on above: Performed By: #### C MREP #### [facility] [address] [address] [address] Caroline Bell PROF CHEM 8 (BAS METB)on Anion gap [Moles/Vol] 14.7 mmol/L Normal [facility] Comment on above: Performed By: #### I NSULIN #### [facility] [address] [address] [address] Caroline Bell Calcium [Mass/Vol] 9.1 mg/dL Normal 8.5-10.1 [facility] Comment on above: Performed By: #### I NSULIN #### [facility] [address] [address] [address] Caroline Bell Chloride [Moles/Vol] 107 mmol/L Normal 98-107 [facility] Comment on above: Performed By: #### I NSULIN #### [facility] [address] [address] [address] Caroline Bell CO2 [Moles/Vol] 26.4 mmol/L Normal 21.0-32.0 [facility] Comment on above: Performed By: #### I NSULIN #### [facility] [address] [address] [address] Caroline Bell Creatinine [Mass/Vol] 1.82 mg/dL Critically high 0.70-1.30 [facility] Comment on above: Performed By: #### I NSULIN #### [facility] [address] [place] [address] Dr. Caroline Bell EGFR-AF BULGARIAN 45 mL/min/1.73m2 Critically low >=60 [facility] Comment on above: Performed By: #### I NSULIN #### [facility] [address] [place] [address] Dr. Caroline Bell EGFR-NON AF BULGARIAN 37 mL/min/1.73m2 Critically low >=60 [facility] Comment on above: Performed By: #### I NSULIN #### [facility] [address] [place] [address] Dr. Caroline Bell Glucose [Mass/Vol] 324 mg/dL Critically high 74-106 [facility] Comment on above: Performed By: #### I NSULIN #### [facility] [address] [address] [address] Caroline Bell Potassium [Moles/Vol] 5.1 mmol/L Normal 3.5-5.1 [facility] Comment on above: Performed By: #### I NSULIN #### [facility] [address] [address] [address] Caroline Bell Sodium [Moles/Vol] 143 mmol/L Normal 136-145 [facility] Comment on above: Performed By: #### I NSULIN #### [facility] [address] [place], [place] [address] Dr. Caroline Bell Urea nitrogen [Mass/Vol] 30.0 mg/dL Critically high 7.0-18.0 [facility] Comment on above: Performed By: #### I NSULIN #### [facility] [address] [place], [place] [address] Dr. Caroline Bell Urea nitrogen/Creatinine [Mass ratio] 16.5 mg/mg Normal [facility] Comment on above: Performed By: #### I NSULIN #### [facility] [address] [place], [place] [address] Dr. Caroline Bell ECHOCARDIO M/2D COMPLETEon 0 09-27-2022 ECHOCARDIO M/2D COMPLETE Patient: KIM GARRISON Exam Date: 09/27/2022 : 1950 Gender:M Ordering : DR IKER HARRISON . Admission #: [id number] Family : [facility] Order #: [id number] CLICK HERE TO VIEW EXAM ECHOCARDIOGRAM REPORT [...] M.D. on 09/27/2022 at 15:06 Normal [facility] INSULINon 09-24-2022 Insulin 19.1 uIU/mL Normal 2.6-24.9 [facility] Comment on above: Performed By: #### I NSULIN #### [facility] [address] [place] [address] Dr. Caroline Bell BNPon 09-23-2022 Natriuretic peptide B (Bld) [Mass/Vol] 2963.0 pg/mL Critically high <=900.0 [facility] Comment on above: Performed By: #### V ITAD, PSASC #### [facility] [address] [place] [address] Dr. Caroline Bell CBC AUTO DIFFon 09-23-2022 BASO # 0.1 103/ul Normal 0.0-0.1 [facility] Comment on above: Performed By: #### P OCGLUC #### [facility] [address] [place] [address] Dr. Caroline Bell Basophils/100 WBC (Bld) 0.8 % Normal 0.2-2.0 [facility] Comment on above: Performed By: #### P OCGLUC #### [facility] [address] [place] [address] Dr. Caroline Bell EO # 0.3 103/ul Normal 0.0-0.7 [facility] Comment on above: Performed By: #### P OCGLUC #### [facility] [address] [place] [address] Dr. Caroline Bell Eosinophils/100 WBC (Bld) 4.2 % Normal 0.9-7.0 [facility] Comment on above: Performed By: #### P OCGLUC #### [facility] [address] [place] [address] Dr. Caroline Bell Erythrocyte distribution width (RBC) [Ratio] 14.1 % Normal 11.0-15.0 [facility] Comment on above: Performed By: #### P OCGLUC #### [facility] [address] [place] [address] Dr. Caroline Bell Hematocrit (Bld) [Volume fraction] 41.8 % Critically low 42.0-54.0 [facility] Comment on above: Performed By: #### P OCGLUC #### [facility] [address] [place] [address] Dr. Caroline Bell Hemoglobin (Bld) [Mass/Vol] 12.7 g/dL Critically low 14.0-18.0 [facility] Comment on above: Performed By: #### P OCGLUC #### [facility] [address] [address] [address] Caroline Bell IG # 0.03 10e3/ul Normal 0.00-0.03 [facility] Comment on above: Performed By: #### P OCGLUC #### [facility] [address] [address] [address] Caroline Bell IG % 0.4 % Normal 0.0-0.5 [facility] Comment on above: Performed By: #### P OCGLUC #### [facility] [address] [place] [address] Dr. Caroline Bell LYMPH # 1.8 103/ul Normal 1.2-3.8 [facility] Comment on above: Performed By: #### P OCGLUC #### [facility] [address] [place] [address] Dr. Caroline Bell Lymphocytes/100 WBC (Bld) 23.0 % Normal 20.5-60.0 [facility] Comment on above: Performed By: #### P OCGLUC #### [facility] [address] [place] [address] Dr. Caroline Bell MANUAL DIFF REQ NO Normal [facility] Comment on above: Performed By: #### P OCGLUC #### [facility] [address] [place] [address] Dr. Caroline Bell MCH (RBC) [Entitic mass] 29.3 pg Normal 25.9-34.0 [facility] Comment on above: Performed By: #### P OCGLUC #### [facility] [address] [address] [address] Caroline Bell MCHC (RBC) [Mass/Vol] 30.4 g/dL Normal 29.9-35.2 [facility] Comment on above: Performed By: #### P OCGLUC #### [facility] [address] [place] [address] Dr. Caroline Bell MCV (RBC) [Entitic vol] 96.3 fL Critically high 80.0-94.0 [facility] Comment on above: Performed By: #### P OCGLUC #### [facility] [address] [address] [address] Caroline Bell MONO # 0.5 103/ul Normal 0.3-0.8 [facility] Comment on above: Performed By: #### P OCGLUC #### [facility] [address] [place] [address] Dr. Caroline Bell Monocytes/100 WBC (Bld) 6.2 % Normal 1.7-12.0 [facility] Comment on above: Performed By: #### P OCGLUC #### [facility] [address] [place] [address] Dr. Caroline Bell NEUT # 5.2 103/ul Normal 1.4-6.5 [facility] Comment on above: Performed By: #### P OCGLUC #### [facility] [address] [place] [address] Dr. Caroline Bell Neutrophils/100 WBC (Bld) 65.4 % Normal 43.0-75.0 [facility] Comment on above: Performed By: #### P OCGLUC #### [facility] [address] [place] [address] Dr. Caroline Bell Platelet mean volume (Bld) [Entitic vol] 10.0 fL Normal 9.5-13.5 [facility] Comment on above: Performed By: #### P OCGLUC #### [facility] [address] [place] [address] Dr. Caroline Bell PLT 232 103/ul Normal 150-450 [facility] Comment on above: Performed By: #### P OCGLUC #### [facility] [address] [place] [address] Dr. Caroline Bell RBC 4.34 106/ul Critically low 4.70-6.10 [facility] Comment on above: Performed By: #### P OCGLUC #### [facility] [address] [place] [address] Dr. Caroline Bell WBC 7.9 103/ul Normal 4.0-11.0 [facility] Comment on above: Performed By: #### P OCGLUC #### [facility] [address] [place] [address] Dr. Caroline Bell FREE THYROXINE INDEX T7on FTI 2.05 Normal 1.30-4.50 [facility] Comment on above: Performed By: #### V ITJAVI, PSASC #### [facility] [address] [address] [address] Caroline Bell T3U 33.0 % Normal 33.0-40.0 [facility] Comment on above: Performed By: #### V ITJAVI, PSASC #### [facility] [address] [address] [address] Caroline Bell T4 [Mass/Vol] 6.20 ug/dL Normal 4.50-12.10 [facility] Comment on above: Performed By: #### V DIDI PSASC #### [facility] [address] [place] [address] Dr. Caroline Bell GLYCOHEMOGLOBIN A1Con 2022 ADA RECOMMENDATION SEE BELOW Normal [facility] Comment on above: Result Comment: ADA RECOMMENDED LIMIT 4.0 - 6.0 ADA THERAPEUTIC TARGET < 7.0 ACTION SUGGESTED > 7.0 Performed By: #### P OCGLUC #### [facility] [address] [place] [address] Dr. Caroline Bell HbA1c (Bld) [Mass fraction] 7.2 % Critically high 4.5-6.2 [facility] Comment on above: Performed By: #### P OCGLUC #### [facility] [address] [place] [address] Dr. Caroline Bell LIPID PROFILEon 09-23-2022 CHOL-HDL RATIO NORM SEE BELOW Normal [facility] Comment on above: Result Comment: 3.3 - 4.4 LOW RISK 4.4 - 7.1 AVERAGE RISK 7.1 - 11.0 MODERATE RISK >11.0 HIGH RISK Performed By: #### V ITJAVI, PSASC #### [facility] [address] [place] [address] Dr. Caroline Bell Cholesterol [Mass/Vol] 132 mg/dL Normal <=200 [facility] Comment on above: Performed By: #### V ITJAVI, PSASC #### [facility] [address] [address] [address] Caroline Bell Cholesterol in HDL [Mass/Vol] 67 mg/dL Critically high 40-60 [facility] Comment on above: Performed By: #### V ITAD, PSASC #### [facility] [address] [address] [address] Caroline Bell Cholesterol in LDL [Mass/Vol] 54.2 mg/dL Normal [facility] Comment on above: Performed By: #### V ITAD, PSASC #### [facility] [address] [address] [address] Caroline Bell Cholesterol.total/Ch olesterol in HDL [Mass ratio] 2.0 {ratio} Normal [facility] Comment on above: Performed By: #### V ITAD, PSASC #### [facility] [address] [address] [address] Caroline Bell HDL NORMAL > or = 60 mg/dl - LO W CARDIOVASCULAR RISK <40 mg/dl - HIGH CARDIOVASCULAR RISK Normal [facility] Comment on above: Performed By: #### V ITAD, PSASC #### [facility] [address] [address] [address] Caroline Bell LDL CALC NORMAL SEE BELOW Normal [facility] Comment on above: Result Comment: <100 mg/dl OPTIMAL 100 - 129 mg/dl NEAR OR ABOVE OPTIMAL 130 - 159 mg/dl BORDERLINE HIGH 160 - 189 mg/dl HIGH >190 mg/dl VERY HIGH Performed By: #### V ITAD, PSASC #### [facility] [address] [address] [address] Caroline Bell Triglyceride [Mass/Vol] 54 mg/dL Normal <=150 [facility] Comment on above: Performed By: #### V ITAD, PSASC #### [facility] [address] [address] [address] Caroline Bell VLDL CALC 10.8 mg/dL Normal [facility] Comment on above: Performed By: #### V ITAD, PSASC #### [facility] [address] [address] [address] Caroline Bell PROF 14(COMP METB)on 023 Albumin [Mass/Vol] 3.8 g/dL Normal 3.4-5.0 [facility] Comment on above: Performed By: #### V DIDI, PSASC #### [facility] [address] [address] [address] Caroline Bell Albumin/Globulin [Mass ratio] 0.9 {ratio} Normal [facility] Comment on above: Performed By: #### V DIDI, PSASC #### [facility] [facility] [address] [address] [address] Caroline Bell ALP [Catalytic activity/Vol] 99 U/L Normal 46-116 [facility] Comment on above: Performed By: #### V DIDI, PSASC #### [facility] [address] [place] [address] Dr. Caroline Bell ALT [Catalytic activity/Vol] 25 U/L Normal 16-63 [facility] Comment on above: Performed By: #### V DIDI, PSASC #### [facility] [address] [place] [address] Dr. Caroline Bell Anion gap [Moles/Vol] 13.2 mmol/L Normal [facility] Comment on above: Performed By: #### V DIDI, PSASC #### [facility] [address] [place] [address] Dr. Caroline Bell AST [Catalytic activity/Vol] 18 U/L Normal 15-37 [facility] Comment on above: Performed By: #### V DIDI, PSASC #### [facility] [address] [address] [address] Caroline Bell Bilirubin [Mass/Vol] 0.5 mg/dL Normal 0.2-1.0 [facility] Comment on above: Performed By: #### V ITJAVI, PSASC #### [facility] [address] [address] [address] Caroline Bell Calcium [Mass/Vol] 9.3 mg/dL Normal 8.5-10.1 [facility] Comment on above: Performed By: #### V DIDI, PSASC #### [facility] [address] [address] [address] Caroline Bell Chloride [Moles/Vol] 106 mmol/L Normal 98-107 [facility] Comment on above: Performed By: #### V ITAD, PSASC #### [facility] [address] [address] [address] Caroline Bell CO2 [Moles/Vol] 26.1 mmol/L Normal 21.0-32.0 [facility] Comment on above: Performed By: #### V ITAD, PSASC #### [facility] [address] [address] [address] Caroline Bell Creatinine [Mass/Vol] 1.59 mg/dL Critically high 0.70-1.30 [facility] Comment on above: Performed By: #### V ITAD, PSASC #### [facility] [address] [place] [address] Dr. Caroline Bell EGFR-AF BULGARIAN 52 mL/min/1.73m2 Critically low >=60 [facility] Comment on above: Performed By: #### V ITAD, PSASC #### [facility] [address] [address] [address] Caroline Bell EGFR-NON AF BULGARIAN 43 mL/min/1.73m2 Critically low >=60 [facility] Comment on above: Performed By: #### V ITAD, PSASC #### [facility] [address] [address] [address] Caroline Bell Globulin (S) [Mass/Vol] 4.2 g/dL Normal [facility] Comment on above: Performed By: #### V ITAD, PSASC #### [facility] [address] [address] [address] Caroline Bell Glucose [Mass/Vol] 160 mg/dL Normal [facility] Comment on above: Performed By: #### V ITAD, PSASC #### [facility] [address] [address] [address] Caroline Bell Performed By: #### P OCGLUC #### [facility] [address] [address] [address] Caroline Bell Potassium [Moles/Vol] 5.3 mmol/L Critically high 3.5-5.1 [facility] Comment on above: Performed By: #### V ITAD, PSASC #### [facility] [address] [place] [address] Dr. Caroline Bell Protein [Mass/Vol] 8.0 g/dL Normal 6.4-8.2 [facility] Comment on above: Performed By: #### V ITAD, PSASC #### [facility] [address] [place] [address] Dr. Caroline Bell Sodium [Moles/Vol] 140 mmol/L Normal 136-145 [facility] Comment on above: Performed By: #### V ITAD, PSASC #### [facility] [address] [place] [address] Dr. Caroline Bell Urea nitrogen [Mass/Vol] 30.0 mg/dL Critically high 7.0-18.0 [facility] Comment on above: Performed By: #### V ITAD, PSASC #### [facility] [address] [place] [address] Dr. Caroline Bell Urea nitrogen/Creatinine [Mass ratio] 18.9 mg/mg Normal [facility] Comment on above: Performed By: #### V ITAD, PSASC #### [facility] [address] [place] [address] Dr. Caroline Bell TSHon 09-23-2022 TSH 1.076 uIU/mL Normal 0.358-3.740 [facility] Comment on above: Performed By: #### V ITAD, PSASC #### [facility] [address] [place] [address] Dr. Caroline Bell URIC ACID SERUMon 09-23-2022 Urate [Mass/Vol] 5.9 mg/dL Normal 3.5-7.2 [facility] Comment on above: Performed By: #### V ITAD, PSASC #### [facility] [address] [place] [address] Dr. Caroline Bell VITAMIN D 25 OHon 09-23-2022 VIT D 25-OH 32.7 ng/mL Normal [facility] Comment on above: Performed By: #### V DIDI PSASC #### [facility] [address] [place] [address] Dr. Caroline Bell VIT D RANGES SEE BELOW Normal [facility] Comment on above: Result Comment: <20 ng/mL Vit D deficient 20 - <30 ng/mL Vit D insufficient 30 - 100 ng/mL Vit D sufficient >100 ng/mL Potential Toxicity Performed By: #### V DIDI PSASC #### [facility] [address] [place] [address] Dr. Caroline Bell CBC AUTO DIFFon 06-18-2022 BASO # 0.1 103/ul Normal 0.0-0.1 [facility] Comment on above: Performed By: #### C BC #### [facility] [address] [place] [address] Dr. Caroline Bell Basophils/100 WBC (Bld) 0.4 % Normal 0.2-2.0 [facility] Comment on above: Performed By: #### C BC #### [facility] [address] [place] [address] Dr. Caroline Bell EO # 0.2 103/ul Normal 0.0-0.7 [facility] Comment on above: Performed By: #### C BC #### [facility] [address] [place] [address] Dr. Caroline Bell Eosinophils/100 WBC (Bld) 2.0 % Normal 0.9-7.0 [facility] Comment on above: Performed By: #### C BC #### [facility] [address] [place] [address] Dr. Caroline Bell Erythrocyte distribution width (RBC) [Ratio] 14.5 % Normal 11.0-15.0 [facility] Comment on above: Performed By: #### C BC #### [facility] [address] [place] [address] Dr. Caroline Bell Hematocrit (Bld) [Volume fraction] 35.6 % Critically low 42.0-54.0 [facility] Comment on above: Performed By: #### C BC #### [facility] [address] [address] [address] Caroline Bell Hemoglobin (Bld) [Mass/Vol] 11.4 g/dL Critically low 14.0-18.0 [facility] Comment on above: Performed By: #### C BC #### [facility] [address] [address] [address] Caroline Bell IG # 0.05 10e3/ul Critically high 0.00-0.03 [facility] Comment on above: Performed By: #### C BC #### [facility] [address] [place] [address] Dr. Caroline Bell IG % 0.4 % Normal 0.0-0.5 [facility] Comment on above: Performed By: #### C BC #### [facility] [address] [place] [address] Dr. Caroline Bell LYMPH # 1.4 103/ul Normal 1.2-3.8 [facility] Comment on above: Performed By: #### C BC #### [facility] [address] [place] [address] Dr. Caroline Bell Lymphocytes/100 WBC (Bld) 12.0 % Critically low 20.5-60.0 [facility] Comment on above: Performed By: #### C BC #### [facility] [address] [place] [address] Dr. Caroline Bell MANUAL DIFF REQ NO Normal [facility] Comment on above: Performed By: #### C BC #### [facility] [address] [place] [address] Dr. Caroline Bell MCH (RBC) [Entitic mass] 29.5 pg Normal 25.9-34.0 [facility] Comment on above: Performed By: #### C BC #### [facility] [address] [place] [address] Dr. Caroline Bell MCHC (RBC) [Mass/Vol] 32.0 g/dL Normal 29.9-35.2 [facility] Comment on above: Performed By: #### C BC #### [facility] [address] [address] [address] Caroline Bell MCV (RBC) [Entitic vol] 92.2 fL Normal 80.0-94.0 [facility] Comment on above: Performed By: #### C BC #### [facility] [address] [address] [address] Caroline Bell MONO # 0.7 103/ul Normal 0.3-0.8 [facility] Comment on above: Performed By: #### C BC #### [facility] [address] [address] [address] Caroline Bell Monocytes/100 WBC (Bld) 5.7 % Normal 1.7-12.0 [facility] Comment on above: Performed By: #### C BC #### [facility] [address] [place] [address] Dr. Caroline Bell NEUT # 9.6 103/ul Critically high 1.4-6.5 [facility] Comment on above: Performed By: #### C BC #### [facility] [address] [place] [address] Dr. Caroline Bell Neutrophils/100 WBC (Bld) 79.5 % Critically high 43.0-75.0 [facility] Comment on above: Performed By: #### C BC #### [facility] [address] [place] [address] Dr. Caroline Bell Platelet mean volume (Bld) [Entitic vol] 10.0 fL Normal 9.5-13.5 [facility] Comment on above: Performed By: #### C BC #### [facility] [address] [place] [address] Dr. Caroline Bell PLT 240 103/ul Normal 150-450 [facility] Comment on above: Performed By: #### C BC #### [facility] [address] [place] [address] Dr. Caroline Bell RBC 3.86 106/ul Critically low 4.70-6.10 [facility] Comment on above: Performed By: #### C BC #### [facility] [address] [place], [place] [address] Dr. Caroline Bell WBC 12.0 103/ul Critically high 4.0-11.0 [facility] Comment on above: Performed By: #### C #### [facility] [address] [place] [address] CSPINE WO CONon [...] MARLENI SAID Date: 2022-06-18 02:07 Normal [facility] CT HEAD WO CONon 06-18-2022 CT [...] MARLENI SAID Date: 2022-06-18 01:46 Normal [facility] ER URINE PROFILEon 2 Bilirubin Ql (U) Negative Normal NEGATIVE [facility] Comment on above: Performed By: #### V ITAD, PSASC #### [facility] [address] [address] [address] Caroline Bell Clarity (U) CLEAR Normal CLEAR [facility] Comment on above: Performed By: #### V ITAD, PSASC #### [facility] [address] [place] [address] Dr. Caroline Bell Color (U) LT. YELLOW Normal YELLOW [facility] Comment on above: Performed By: #### V ITAD, PSASC #### [facility] [address] [place] [address] Dr. Caroline Bell ERUAHD A micrscopic examination will be performed if indicated. Normal [facility] Comment on above: Performed By: #### V ITAD, PSASC #### [facility] [address] [place] [address] Dr. Caroline Bell Glucose Ql (U) Negative Normal NEGATIVE [facility] Comment on above: Performed By: #### V ITAD, PSASC #### [facility] [address] [place] [address] Dr. Caroline Bell Hemoglobin Ql (U) Negative Normal NEGATIVE [facility] Comment on above: Performed By: #### V ITAD, PSASC #### [facility] [address] [place] [address] Dr. Caroline Bell Ketones Ql (U) TRACE Abnormal NEGATIVE [facility] Comment on above: Performed By: #### V ITAD, PSASC #### [facility] [address] [place] [address] Dr. Caroline Bell LEUKOCYTES Negative Normal NEGATIVE [facility] Comment on above: Performed By: #### V ITAD, PSASC #### [facility] [address] [place] [address] Dr. Caroline Bell Nitrite Ql (U) Negative Normal NEGATIVE [facility] Comment on above: Performed By: #### V ITAD, PSASC #### [facility] [address] [place] [address] Dr. Caroline Bell pH (U) 6.0 [pH] Normal 5-9 [facility] Comment on above: Performed By: #### V ITAD, PSASC #### [facility] [address] [address] [address] Caroline Bell SPEC GRAVITY 1.020 Normal 1.005-<=1.025 [facility] Comment on above: Performed By: #### V ITAD, PSASC #### [facility] [address] [place] [address] Dr. Caroline Bell UA PROTEIN TRACE Normal NEGATIVE/ TRACE [facility] Comment on above: Performed By: #### V ITAD, PSASC #### [facility] [address] [place] [address] Dr. Caroline Bell UR MICRO IND NOT INDICATED Normal [facility] Comment on above: Performed By: #### V ITAD, PSASC #### [facility] [address] [place] [address] Dr. Caroline Bell Urobilinogen Qn (U) 0.2 {Sophia'U}/dL Normal 0.2 - 1. 0 [facility] Comment on above: Performed By: #### V ITAD, PSASC #### [facility] [address] [place] [address] Dr. Caroline Bell LACTATE/LACTIC ACIDon 2021 Lactate [Moles/Vol] 2.9 mmol/L Critically high 0.4-1.9 [facility] Comment on above: Performed By: #### I NSULIN #### [facility] [address] [place] [address] Dr. Caroline Bell Lactate [Moles/Vol] 1.9 mmol/L Normal 0.4-1.9 [facility] Comment on above: Performed By: #### P OCGLUC #### [facility] [address] [place] [address] Dr. Caroline Bell POINT OF CARE GLUCOSEon Glucose [Mass/Vol] 411 mg/dL Critically high 74-106 [facility] Comment on above: Performed By: #### P OCGLUC #### [facility] [address] [place], [place] [id number] Dr. Caroline Bell Glucose [Mass/Vol] 51 mg/dL Critically low 74-106 [facility] Comment on above: Performed By: #### P OCGLUC #### [facility] [address] [place] [address] Dr. Caroline Bell PROF 14(COMP METB)on 022 Albumin [Mass/Vol] 3.7 g/dL Normal 3.4-5.0 [facility] Comment on above: Performed By: #### V ITAD, PSASC #### [facility] [address] [address] [address] Caroline Bell Albumin/Globulin [Mass ratio] 0.9 {ratio} Normal [facility] Comment on above: Performed By: #### V ITAD, PSASC #### [facility] [address] [place] [address] Dr. Caroline Bell ALP [Catalytic activity/Vol] 96 U/L Normal 46-116 [facility] Comment on above: Performed By: #### V ITAD, PSASC #### [facility] [address] [place] [address] Dr. Caroline Bell ALT [Catalytic activity/Vol] 16 U/L Normal 16-63 [facility] Comment on above: Performed By: #### V ITAD, PSASC #### [facility] [address] [place] [address] Dr. Caroline Bell Anion gap [Moles/Vol] 14.3 mmol/L Normal [facility] Comment on above: Performed By: #### V ITAD, PSASC #### [facility] [address] [place] [address] Dr. Caroline Bell AST [Catalytic activity/Vol] 15 U/L Normal 15-37 [facility] Comment on above: Performed By: #### V ITAD, PSASC #### [facility] [address] [place] [address] Dr. Caroline Bell Bilirubin [Mass/Vol] 0.3 mg/dL Normal 0.2-1.0 [facility] Comment on above: Performed By: #### V ITAD, PSASC #### [facility] [address] [address] [address] Caroline Bell Calcium [Mass/Vol] 8.9 mg/dL Normal 8.5-10.1 [facility] Comment on above: Performed By: #### V ITAD, PSASC #### [facility] [address] [address] [address] Caroline Bell Chloride [Moles/Vol] 109 mmol/L Critically high 98-107 [facility] Comment on above: Performed By: #### V ITAD, PSASC #### [facility] [address] [address] [address] Caroline Bell CO2 [Moles/Vol] 22.6 mmol/L Normal 21.0-32.0 [facility] Comment on above: Performed By: #### V ITAD, PSASC #### [facility] [address] [place] [address] Dr. Caroline Bell Creatinine [Mass/Vol] 1.89 mg/dL Critically high 0.70-1.30 [facility] Comment on above: Performed By: #### V ITAD, PSASC #### [facility] [address] [address] [address] Caroline Bell EGFR-AF BULGARIAN 43 mL/min/1.73m2 Critically low >=60 [facility] Comment on above: Performed By: #### V ITAD, PSASC #### [facility] [address] [address] [address] Caroline Bell EGFR-NON AF BULGARIAN 35 mL/min/1.73m2 Critically low >=60 [facility] Comment on above: Performed By: #### V ITAD, PSASC #### [facility] [address] [address] [address] Caroline Bell Globulin (S) [Mass/Vol] 4.0 g/dL Normal [facility] Comment on above: Performed By: #### V ITAD, PSASC #### [facility] [address] [address] [address] Caroline Bell Glucose [Mass/Vol] 48 mg/dL Critically low 74-106 [facility] Comment on above: Performed By: #### V ITAD, PSASC #### [facility] [address] [place] [address] Dr. Caroline Bell Potassium [Moles/Vol] 4.9 mmol/L Normal 3.5-5.1 [facility] Comment on above: Performed By: #### V ITAD, PSASC #### [facility] [address] [place] [address] Dr. Caroline Bell Protein [Mass/Vol] 7.7 g/dL Normal 6.4-8.2 [facility] Comment on above: Performed By: #### V ITAD, PSASC #### [facility] [address] [place] [address] Dr. Caroline Bell Sodium [Moles/Vol] 141 mmol/L Normal 136-145 [facility] Comment on above: Performed By: #### V ITAD, PSASC #### [facility] [address] [place] [address] Dr. Caroline Bell Urea nitrogen [Mass/Vol] 32.0 mg/dL Critically high 7.0-18.0 [facility] Comment on above: Performed By: #### V ITAD, PSASC #### [facility] [address] [place] [address] Dr. Caroline Bell Urea nitrogen/Creatinine [Mass ratio] 16.9 mg/mg Normal [facility] Comment on above: Performed By: #### V ITAD, PSASC #### [facility] [address] [place] [address] Dr. Caroline Bell TROPONIN, HIGH SENSITIVITYon 06-18-2022 HSTROP 10.8 pg/mL Normal 4.0-76.1 [facility] Comment on above: Result Comment: CUT- OFF POINTS HAVE BEEN ESTABLISHED BASED ON THE FOURTH UNIVERSAL DEFINITIONS OF MYOCARDIAL INFARCTION. THE UPPER REFERENCE LIMIT (URL) OF TROPONIN, DEFINED THE 99TH PERCENTILE OF cTnI DISTRIBUTION IN A REFERENCE POPULATION, HAS BEEN CONFIRMED THE DECISION THRESHOLD FOR PR DIAGNOSIS. Performed By: #### V ITAD, PSASC #### [facility] [address] [place] [address] Dr. Caroline Bell XR CHEST 1 Von [...] NICK CHAIREZ Date: 2022-06-18 01:49 Normal [facility] BNPon 06-11-2022 Natriuretic peptide B (Bld) [Mass/Vol] 5101.0 pg/mL Critically high <=900.0 [facility] Comment on above: Performed By: #### C MREP #### [facility] [address] [place] [address] Dr. Caroline Bell CBC AUTO DIFFon 06-11-2022 BASO # 0.0 103/ul Normal 0.0-0.1 [facility] Comment on above: Performed By: #### P OCGLUC #### [facility] [address] [place] [address] Dr. Caroline Bell Basophils/100 WBC (Bld) 0.4 % Normal 0.2-2.0 [facility] Comment on above: Performed By: #### P OCGLUC #### [facility] [address] [place] [address] Dr. Caroline Bell EO # 0.6 103/ul Normal 0.0-0.7 [facility] Comment on above: Performed By: #### P OCGLUC #### [facility] [address] [place] [address] Dr. Caroline Bell Eosinophils/100 WBC (Bld) 6.1 % Normal 0.9-7.0 [facility] Comment on above: Performed By: #### P OCGLUC #### [facility] [address] [place] [address] Dr. Caroline Bell Erythrocyte distribution width (RBC) [Ratio] 14.4 % Normal 11.0-15.0 [facility] Comment on above: Performed By: #### P OCGLUC #### [facility] [address] [place] [address] Dr. Carloine Bell Hematocrit (Bld) [Volume fraction] 27.5 % Critically low 42.0-54.0 [facility] Comment on above: Performed By: #### P OCGLUC #### [facility] [address] [place] [address] Dr. Caroline Bell Hemoglobin (Bld) [Mass/Vol] 8.7 g/dL Critically low 14.0-18.0 [facility] Comment on above: Performed By: #### P OCGLUC #### [facility] [address] [place] [address] Dr. Caroline Bell IG # 0.01 10e3/ul Normal 0.00-0.03 [facility] Comment on above: Performed By: #### P OCGLUC #### [facility] [address] [place] [address] Dr. Caroline Bell IG % 0.1 % Normal 0.0-0.5 [facility] Comment on above: Performed By: #### P OCGLUC #### [facility] [address] [place] [address] Dr. Caroline Bell LYMPH # 2.0 103/ul Normal 1.2-3.8 [facility] Comment on above: Performed By: #### P OCGLUC #### [facility] [address] [place] [address] Dr. Caroline Bell Lymphocytes/100 WBC (Bld) 20.9 % Normal 20.5-60.0 [facility] Comment on above: Performed By: #### P OCGLUC #### [facility] [address] [place] [address] Dr. Caroline Bell MANUAL DIFF REQ NO Normal [facility] Comment on above: Performed By: #### P OCGLUC #### [facility] [address] [place] [address] Dr. Caroline Bell MCH (RBC) [Entitic mass] 29.6 pg Normal 25.9-34.0 [facility] Comment on above: Performed By: #### P OCGLUC #### [facility] [address] [address] [address] Caroline Bell MCHC (RBC) [Mass/Vol] 31.6 g/dL Normal 29.9-35.2 [facility] Comment on above: Performed By: #### P OCGLUC #### [facility] [address] [place] [address] Dr. Caroline Bell MCV (RBC) [Entitic vol] 93.5 fL Normal 80.0-94.0 [facility] Comment on above: Performed By: #### P OCGLUC #### [facility] [address] [place] [address] Dr. Caroline Bell MONO # 0.7 103/ul Normal 0.3-0.8 [facility] Comment on above: Performed By: #### P OCGLUC #### [facility] [address] [place] [address] Dr. Caroline Bell Monocytes/100 WBC (Bld) 7.7 % Normal 1.7-12.0 [facility] Comment on above: Performed By: #### P OCGLUC #### [facility] [address] [place] [address] Dr. Caroline Bell NEUT # 6.2 103/ul Normal 1.4-6.5 [facility] Comment on above: Performed By: #### P OCGLUC #### [facility] [address] [place] [address] Dr. Caroline Bell Neutrophils/100 WBC (Bld) 64.8 % Normal 43.0-75.0 [facility] Comment on above: Performed By: #### P OCGLUC #### [facility] [address] [place] [address] Dr. Caroline Bell Platelet mean volume (Bld) [Entitic vol] 10.1 fL Normal 9.5-13.5 [facility] Comment on above: Performed By: #### P OCGLUC #### [facility] [address] [address] [address] Caroline Bell PLT 212 103/ul Normal 150-450 [facility] Comment on above: Performed By: #### P OCGLUC #### [facility] [address] [address] [address] Caroline Bell RBC 2.94 106/ul Critically low 4.70-6.10 [facility] Comment on above: Performed By: #### P OCGLUC #### [facility] [address] [address] [address] Caroline Bell WBC 9.6 103/ul Normal 4.0-11.0 [facility] Comment on above: Performed By: #### P OCGLUC #### [facility] [address] [address] [address] Caroline Bell ECHOCARDIO M/2D COMPLETEon 1 ECHOCARDIO M/2D COMPLETE Patient: KIM GARRISON Exam Date: 06/11/2022 : 1950 Gender:M Ordering : [facility] Admission #: [id number] Family : DR IKER HARRISON . Order #: [id number] CLICK HERE TO VIEW EXAM ECHOCARDIOGRAM REPORT [...] Pressure: 41.86 ml, 41.86 ml Dictated by: Ciro Tapia M.D. on 06/19/2022 at 10:29 Approved by: Ciro Tapia M.D. on 06/19/2022 at 10:32 Normal [facility] POINT OF CARE GLUCOSEon 05-19 Glucose [Mass/Vol] 136 mg/dL Critically high 74-106 T [facility] Comment on above: Performed By: #### C MREP #### [facility] [address] [address] [address] Caroline Bell Glucose [Mass/Vol] 98 mg/dL Normal 74-106 [facility] Comment on above: Performed By: #### P OCGLUC #### [facility] [address] [place] [address] Dr. Caroline Bell PROF CHEM 8 (BAS METB)on Anion gap [Moles/Vol] 13.9 mmol/L Normal [facility] Comment on above: Performed By: #### C MREP #### [facility] [address] [address] [address] Caroline Bell Calcium [Mass/Vol] 7.9 mg/dL Critically low 8.5-10.1 Th [facility] Comment on above: Performed By: #### C MREP #### [facility] [address] [address] [address] Caroline Bell Chloride [Moles/Vol] 110 mmol/L Critically high 98-107 [facility] Comment on above: Performed By: #### C MREP #### [facility] [address] [address] [address] Caroline Bell CO2 [Moles/Vol] 22.2 mmol/L Normal 21.0-32.0 [facility] Comment on above: Performed By: #### C MREP #### [facility] [address] [place] [address] Dr. Caroline Bell Creatinine [Mass/Vol] 1.64 mg/dL Critically high 0.70-1.30 [facility] Comment on above: Performed By: #### C MREP #### [facility] [address] [address] [address] Caroline Bell EGFR-AF BULGARIAN 50 mL/min/1.73m2 Critically low >=60 [facility] Comment on above: Performed By: #### C MREP #### [facility] [address] [address] [address] Caroline Bell EGFR-NON AF BULGARIAN 42 mL/min/1.73m2 Critically low >=60 [facility] Comment on above: Performed By: #### C MREP #### [facility] [address] [address] [address] Caroline Bell Glucose [Mass/Vol] 94 mg/dL Normal 74-106 [facility] Comment on above: Performed By: #### C MREP #### [facility] [address] [address] [address] Caroline Bell Potassium [Moles/Vol] 5.1 mmol/L Normal 3.5-5.1 [facility] Comment on above: Performed By: #### C MREP #### [facility] [address] [address] [address] Caroline Bell Sodium [Moles/Vol] 141 mmol/L Normal 136-145 [facility] Comment on above: Performed By: #### C MREP #### [facility] [address] [address] [address] Caroline Bell Urea nitrogen [Mass/Vol] 30.0 mg/dL Critically high 7.0-18.0 [facility] Comment on above: Performed By: #### C MREP #### [facility] [address] [address] [address] Caroline Bell Urea nitrogen/Creatinine [Mass ratio] 18.3 mg/mg Normal [facility] Comment on above: Performed By: #### C MREP #### [facility] [address] [address] [address] Caroline Bell PROTIMEon 06-11-2022 INR Coag (PPP) [Relative time] 2.40 {INR} Normal [facility] Comment on above: Performed By: #### V ITAD, PSASC #### [facility] [address] [place] [address] Dr. Caroline Bell INR GUIDELINES SEE BELOW Normal [facility] Comment on above: Result Comment: HANG RED INR: 2.0 - 3.0 CONDITIONS NOT LISTED BELOW 2.5 - 3.5 FOR PROSTHETIC HEART VALVE REPLACEMENT 2.5 - 3.5 RECURRENT THROMBOSIS Performed By: #### V ITAD, PSASC #### [facility] [address] [place] [address] Dr. Caroline Bell PT Coag (PPP) [Time] 24.5 s Critically high 9.0-11.6 [facility] Comment on above: Performed By: #### V ITJAVI, PSASC #### [facility] [address] [place] [address] Dr. Caroline Bell BNPon 06-10-2022 Natriuretic peptide B (Bld) [Mass/Vol] 7103.0 pg/mL Critically high <=900.0 [facility] Comment on above: Performed By: #### C MREP #### [facility] [address] [place] [address] Dr. Caroline Bell Natriuretic peptide B (Bld) [Mass/Vol] 6731.0 pg/mL Critically high <=900.0 [facility] Comment on above: Performed By: #### I NSULIN #### [facility] [address] [place] [address] Dr. Caroline Bell CARDIAC ANGEL 3-6on 2 CK [Catalytic activity/Vol] 47 U/L Normal 39-308 [facility] Comment on above: Performed By: #### C MREP #### [facility] [address] [place] [address] Dr. Caroline Bell CK.MB [Mass/Vol] 1.59 ng/mL Normal <=3.60 [facility] Comment on above: Performed By: #### C MREP #### [facility] [address] [place] [address] Dr. Caroline Bell HSTROP 10.5 pg/mL Normal 4.0-76.1 [facility] Comment on above: Result Comment: CUT- OFF POINTS HAVE BEEN ESTABLISHED BASED ON THE FOURTH UNIVERSAL DEFINITIONS OF MYOCARDIAL INFARCTION. THE UPPER REFERENCE LIMIT (URL) OF TROPONIN, DEFINED THE 99TH PERCENTILE OF cTnI DISTRIBUTION IN A REFERENCE POPULATION, HAS BEEN CONFIRMED THE DECISION THRESHOLD FOR PR DIAGNOSIS. Performed By: #### C MREP #### [facility] [address] [address] [address] Caroline Bell CK [Catalytic activity/Vol] 58 U/L Normal 39-308 [facility] Comment on above: Performed By: #### C MREP #### [facility] [address] [address] [address] Caroline Bell CK.MB [Mass/Vol] 1.90 ng/mL Normal <=3.60 [facility] Comment on above: Performed By: #### C MREP #### [facility] [address] [place] [address] Dr. Caroline Bell HSTROP 10.8 pg/mL Normal 4.0-76.1 [facility] Comment on above: Result Comment: CUT- OFF POINTS HAVE BEEN ESTABLISHED BASED ON THE FOURTH UNIVERSAL DEFINITIONS OF MYOCARDIAL INFARCTION. THE UPPER REFERENCE LIMIT (URL) OF TROPONIN, DEFINED THE 99TH PERCENTILE OF cTnI DISTRIBUTION IN A REFERENCE POPULATION, HAS BEEN CONFIRMED THE DECISION THRESHOLD FOR PR DIAGNOSIS. Performed By: #### C MREP #### [facility] [address] [place] [address] Dr. Caroline Bell CARDIAC ANGEL ADMITon 022 CK [Catalytic activity/Vol] 62 U/L Normal 39-308 [facility] Comment on above: Performed By: #### B TREE DOCTOR, CMADM, BMP #### [facility] [address] [address] [address] Caroline Bell CK.MB [Mass/Vol] 1.70 ng/mL Normal <=3.60 [facility] Comment on above: Performed By: #### B TREE DOCTOR, CMADM, BMP #### [facility] [address] [place] [address] Dr. Caroline Bell HSTROP 10.7 pg/mL Normal 4.0-76.1 [facility] Comment on above: Result Comment: CUT- OFF POINTS HAVE BEEN ESTABLISHED BASED ON THE FOURTH UNIVERSAL DEFINITIONS OF MYOCARDIAL INFARCTION. THE UPPER REFERENCE LIMIT (URL) OF TROPONIN, DEFINED THE 99TH PERCENTILE OF cTnI DISTRIBUTION IN A REFERENCE POPULATION, HAS BEEN CONFIRMED THE DECISION THRESHOLD FOR PR DIAGNOSIS. Performed By: #### B TREE DOCTOR, CMADM, BMP #### [facility] [address] [place] [address] Dr. Caroline Bell ADITHYA 159 ng/mL Critically high 16-96 [facility] Comment on above: Performed By: #### B TREE DOCTOR, CMADM, BMP #### [facility] [address] [place] [address] Dr. Caroline Bell CBC AUTO DIFFon 06-10-2022 BASO # 0.0 103/ul Normal 0.0-0.1 [facility] Comment on above: Performed By: #### V ITAD, PSASC #### [facility] [address] [place] [address] Dr. Caroline Bell Basophils/100 WBC (Bld) 0.3 % Normal 0.2-2.0 [facility] Comment on above: Performed By: #### V ITAD, PSASC #### [facility] [address] [place] [address] Dr. Caroline Bell EO # 0.4 103/ul Normal 0.0-0.7 [facility] Comment on above: Performed By: #### V ITAD, PSASC #### [facility] [address] [place] [address] Dr. Caroline Bell Eosinophils/100 WBC (Bld) 3.0 % Normal 0.9-7.0 [facility] Comment on above: Performed By: #### V ITAD, PSASC #### [facility] [address] [place] [address] Dr. Caroline Bell Erythrocyte distribution width (RBC) [Ratio] 14.4 % Normal 11.0-15.0 [facility] Comment on above: Performed By: #### V ITAD, PSASC #### [facility] [address] [place] [address] Dr. Caroline Bell Hematocrit (Bld) [Volume fraction] 32.5 % Critically low 42.0-54.0 [facility] Comment on above: Performed By: #### V ITAD, PSASC #### [facility] [address] [place] [address] Dr. Caroline Bell Hemoglobin (Bld) [Mass/Vol] 10.4 g/dL Critically low 14.0-18.0 [facility] Comment on above: Performed By: #### V ITAD, PSASC #### [facility] [address] [place] [address] Dr. Caroline Bell IG # 0.04 10e3/ul Critically high 0.00-0.03 [facility] Comment on above: Performed By: #### V ITAD, PSASC #### [facility] [address] [place] [address] Dr. Caroline Bell IG % 0.3 % Normal 0.0-0.5 [facility] Comment on above: Performed By: #### V ITAD, PSASC #### [facility] [address] [place] [address] Dr. Caroline Bell LYMPH # 1.6 103/ul Normal 1.2-3.8 [facility] Comment on above: Performed By: #### V ITJAVI, PSASC #### [facility] [address] [place] [address] Dr. Caroline Bell Lymphocytes/100 WBC (Bld) 13.4 % Critically low 20.5-60.0 [facility] Comment on above: Performed By: #### V ITAD, PSASC #### [facility] [address] [place] [address] Dr. Caroline Bell MANUAL DIFF REQ NO Normal [facility] Comment on above: Performed By: #### V ITAD, PSASC #### [facility] [address] [place] [address] Dr. Caroline Bell MCH (RBC) [Entitic mass] 30.3 pg Normal 25.9-34.0 [facility] Comment on above: Performed By: #### V ITAD, PSASC #### [facility] [address] [address] [address] Caroline Bell MCHC (RBC) [Mass/Vol] 32.0 g/dL Normal 29.9-35.2 [facility] Comment on above: Performed By: #### V ITAD, PSASC #### [facility] [address] [address] [address] Caroline Bell MCV (RBC) [Entitic vol] 94.8 fL Critically high 80.0-94.0 [facility] Comment on above: Performed By: #### V ITAD, PSASC #### [facility] [address] [address] [address] Caroline Bell MONO # 0.8 103/ul Normal 0.3-0.8 [facility] Comment on above: Performed By: #### V ITAD, PSASC #### [facility] [address] [place] [address] Dr. Caroline Bell Monocytes/100 WBC (Bld) 6.6 % Normal 1.7-12.0 [facility] Comment on above: Performed By: #### V ITAD, PSASC #### [facility] [address] [address] [address] Caroline Bell NEUT # 9.0 103/ul Critically high 1.4-6.5 [facility] Comment on above: Performed By: #### V ITAD, PSASC #### [facility] [address] [address] [address] Caroline Bell Neutrophils/100 WBC (Bld) 76.4 % Critically high 43.0-75.0 [facility] Comment on above: Performed By: #### V ITAD, PSASC #### [facility] [address] [address] [address] Caroline Bell Platelet mean volume (Bld) [Entitic vol] 10.2 fL Normal 9.5-13.5 [facility] Comment on above: Performed By: #### V ITAD, PSASC #### [facility] [address] [address] [address] Caroline Bell PLT 240 103/ul Normal 150-450 [facility] Comment on above: Performed By: #### V ITAD, PSASC #### [facility] [address] [place] [address] Dr. Caroline Bell RBC 3.43 106/ul Critically low 4.70-6.10 [facility] Comment on above: Performed By: #### V ITAD, PSASC #### [facility] [address] [place] [address] Dr. Caroline Bell WBC 11.7 103/ul Critically high 4.0-11.0 [facility] Comment on above: Performed By: #### V ITAD, PSASC #### [facility] [address] [place] [address] Dr. Caroline Bell BASO # 0.1 103/ul Normal 0.0-0.1 [facility] Comment on above: Performed By: #### V ITAD, PSASC #### [facility] [address] [place] [address] Dr. Caroline Bell Basophils/100 WBC (Bld) 0.5 % Normal 0.2-2.0 [facility] Comment on above: Performed By: #### V ITAD, PSASC #### [facility] [address] [place] [address] Dr. Caroline Bell EO # 0.6 103/ul Normal 0.0-0.7 [facility] Comment on above: Performed By: #### V ITAD, PSASC #### [facility] [address] [place] [address] Dr. Caroline Bell Eosinophils/100 WBC (Bld) 4.2 % Normal 0.9-7.0 [facility] Comment on above: Performed By: #### V ITAD, PSASC #### [facility] [address] [place] [address] Dr. Caroline Bell Erythrocyte distribution width (RBC) [Ratio] 14.5 % Normal 11.0-15.0 [facility] Comment on above: Performed By: #### V ITAD, PSASC #### [facility] [address] [place] [address] Dr. Caroline Bell Hematocrit (Bld) [Volume fraction] 35.3 % Critically low 42.0-54.0 [facility] Comment on above: Performed By: #### V ITAD, PSASC #### [facility] [address] [place] [address] Dr. Caroline Bell Hemoglobin (Bld) [Mass/Vol] 11.2 g/dL Critically low 14.0-18.0 [facility] Comment on above: Performed By: #### V ITAD, PSASC #### [facility] [address] [place] [address] Dr. Caroline Bell IG # 0.05 10e3/ul Critically high 0.00-0.03 [facility] Comment on above: Performed By: #### V ITAD, PSASC #### [facility] [address] [place] [address] Dr. Caroline Bell IG % 0.4 % Normal 0.0-0.5 [facility] Comment on above: Performed By: #### V ITAD, PSASC #### [facility] [address] [place] [address] Dr. Caroline Bell LYMPH # 1.8 103/ul Normal 1.2-3.8 [facility] Comment on above: Performed By: #### V ITAD, PSASC #### [facility] [address] [place] [address] Dr. Caroline Bell Lymphocytes/100 WBC (Bld) 13.1 % Critically low 20.5-60.0 [facility] Comment on above: Performed By: #### V ITAD, PSASC #### [facility] [address] [place] [address] Dr. Caroline Bell MANUAL DIFF REQ NO Normal [facility] Comment on above: Performed By: #### V ITAD, PSASC #### [facility] [address] [place] [address] Dr. Caroline Bell MCH (RBC) [Entitic mass] 30.3 pg Normal 25.9-34.0 [facility] Comment on above: Performed By: #### V ITAD, PSASC #### [facility] [address] [address] [address] Caroline Bell MCHC (RBC) [Mass/Vol] 31.7 g/dL Normal 29.9-35.2 [facility] Comment on above: Performed By: #### V ITAD, PSASC #### [facility] [address] [place] [address] Dr. Caroline Bell MCV (RBC) [Entitic vol] 95.4 fL Critically high 80.0-94.0 [facility] Comment on above: Performed By: #### V ITAD, PSASC #### [facility] [address] [place] [address] Dr. Caroline Bell MONO # 0.8 103/ul Normal 0.3-0.8 [facility] Comment on above: Performed By: #### V ITAD, PSASC #### [facility] [address] [place] [address] Dr. Caroline Bell Monocytes/100 WBC (Bld) 5.6 % Normal 1.7-12.0 [facility] Comment on above: Performed By: #### V ITAD, PSASC #### [facility] [address] [place] [address] Dr. Caroline Bell NEUT # 10.6 103/ul Critically high 1.4-6.5 [facility] Comment on above: Performed By: #### V ITAD, PSASC #### [facility] [address] [place] [address] Dr. Caroline Bell Neutrophils/100 WBC (Bld) 76.2 % Critically high 43.0-75.0 [facility] Comment on above: Performed By: #### V ITAD, PSASC #### [facility] [address] [place] [address] Dr. Caroline Bell Platelet mean volume (Bld) [Entitic vol] 10.0 fL Normal 9.5-13.5 [facility] Comment on above: Performed By: #### V ITAD, PSASC #### [facility] [address] [place] [address] Dr. Caroline Bell PLT 252 103/ul Normal 150-450 [facility] Comment on above: Performed By: #### V ITAD, PSASC #### [facility] [address] [place], [place] [address] Dr. Caroline Bell RBC 3.70 106/ul Critically low 4.70-6.10 [facility] Comment on above: Performed By: #### V ITAD, PSASC #### [facility] [address] [place], [place] [address] Dr. Caroline Bell WBC 13.9 103/ul Critically high 4.0-11.0 [facility] Comment on above: Performed By: #### V ITAD, PSASC #### [facility] [address] [place], [place] [address] ABD/PELVIS WO CONon [...] FERNANDO GONZÁLES Date: 2022-06-10 00:47 Normal [facility] CT CHEST WO CONon 06-10-2022 CT [...] FERNANDO GONZÁLES Date: 2022-06-10 00:35 Normal [facility] CT CSPINE WO CONon 2 CT [...] MARI SO Date: 2022-06-10 00:15 Normal [facility] CT HEAD WO CONon 06-10-2022 CT [...] AMEYA TANNER Date: 2022-06-10 00:22 Normal [facility] CT LSPINE WO CONon CT LSPINE [...] MARI SO Date: 2022-06-10 00:20 Normal [facility] Covid-19 PCR (CVDTB)on 05-19 SARS-CoV-2 (COVID-19) RNA DANILO+probe Ql (Unsp spec) Not detected Normal NOT DETECTED [facility] Comment on above: Result Comment: When [...] for this test is supported by the [place] of [employer] and Human Service's declaration that [...] Performed By: #### V ITAD, PSASC #### [facility] [address] [place] [address] Dr. Caroline Bell D-DIMERon 06-10-2022 D-DIMER 5.83 mg/L FEU Critically high <=0.59 [facility] Comment on above: Performed By: #### I NSULIN #### [facility] [address] [address] [address] Caroline Bell D-DIMER COMMENTS SEE BELOW Normal [facility] Comment on above: Result Comment: Incr eases [...] hospitalization. Performed By: #### I NSULIN #### [facility] [address] [place] [address] Dr. Caroline Bell DIGOXINon 06-10-2022 DIG 1.1 ng/mL Normal 0.9-2.0 [facility] Comment on above: Performed By: #### C MREP #### [facility] [address] [place] [address] Dr. Caroline Bell DIG 1.5 ng/mL Normal 0.9-2.0 [facility] Comment on above: Performed By: #### V ITAD, PSASC #### [facility] [address] [place] [address] Dr. Caroline Bell ER URINE PROFILEon 2 Bilirubin Ql (U) Negative Normal NEGATIVE [facility] Comment on above: Performed By: #### P OCGLUC #### [facility] [address] [place] [address] Dr. Caroline Bell Clarity (U) CLEAR Normal CLEAR [facility] Comment on above: Performed By: #### P OCGLUC #### [facility] [address] [place] [address] Dr. Caroline Bell Color (U) LT. YELLOW Normal YELLOW [facility] Comment on above: Performed By: #### P OCGLUC #### [facility] [address] [place] [address] Dr. Caroline TAYLOR A micrscopic examination will be performed if indicated. Normal [facility] Comment on above: Performed By: #### P OCGLUC #### [facility] [address] [place] [address] Dr. Caroline Bell Glucose Ql (U) Negative Normal NEGATIVE [facility] Comment on above: Performed By: #### P OCGLUC #### [facility] [address] [place] [address] [address] Caroline Bell Hemoglobin Ql (U) Negative Normal NEGATIVE [facility] Comment on above: Performed By: #### P OCGLUC #### [facility] [address] [address] [address] Caroline Bell Ketones Ql (U) Negative Normal NEGATIVE [facility] Comment on above: Performed By: #### P OCGLUC #### [facility] [address] [address] [address] Caroline Bell LEUKOCYTES Negative Normal NEGATIVE [facility] Comment on above: Performed By: #### P OCGLUC #### [facility] [address] [address] [address] Caroline Bell Nitrite Ql (U) Negative Normal NEGATIVE [facility] Comment on above: Performed By: #### P OCGLUC #### [facility] [address] [place] [address] Dr. Caroline Bell pH (U) 6.0 [pH] Normal 5-9 [facility] Comment on above: Performed By: #### P OCGLUC #### [facility] [address] [place] [address] Dr. Caroline Bell SPEC GRAVITY 1.025 Normal 1.005-<=1.025 [facility] Comment on above: Performed By: #### P OCGLUC #### [facility] [address] [address] [address] Caroline Bell UA PROTEIN Negative Normal NEGATIVE/ TRACE [facility] Comment on above: Performed By: #### P OCGLUC #### [facility] [address] [address] [address] Caroline Bell UR MICRO IND NOT INDICATED Normal [facility] Comment on above: Performed By: #### P OCGLUC #### [facility] [address] [place] [address] Dr. Caroline Bell Urobilinogen Qn (U) 0.2 {Sophia'U}/dL Normal 0.2 - 1. 0 [facility] Comment on above: Performed By: #### P OCGLUC #### [facility] [address] [address] [address] Caroline Bell POINT OF CARE GLUCOSEon 05-19 Glucose [Mass/Vol] 121 mg/dL Critically high [address] [place] [address] Comment on above: Performed By: #### P OCGLUC #### [facility] [address] [address] [address] Caroline Bell Glucose [Mass/Vol] 121 mg/dL Critically high [address] [place] [address] Comment on above: Performed By: #### V ITJAVI, PSASC #### [facility] [address] [place] [address] Dr. Caroline Bell Glucose [Mass/Vol] 120 mg/dL Critically high [address] [place] [address] Comment on above: Performed By: #### V ITAD PSASC #### [facility] [address] [place] [address] Dr. Caroline Bell Glucose [Mass/Vol] 131 mg/dL Critically high [address] [place] [address] Comment on above: Performed By: #### V ITAD PSASC #### [facility] [address] [place] [address] Dr. Caroline Bell Glucose [Mass/Vol] 496 mg/dL Critically high [address] [place] [address] Comment on above: Performed By: #### P OCGLUC #### [facility] [address] [address] [address] Caroline Bell Glucose [Mass/Vol] 316 mg/dL Critically high [address] [place] [address] Comment on above: Performed By: #### V ITAD, PSASC #### [facility] [address] [place] [address] Dr. Caroline Bell Glucose [Mass/Vol] 240 mg/dL Critically high [address] [place] [address] Comment on above: Performed By: #### P OCGLUC #### [facility] [address] [place] [address] Dr. Caroline Bell Glucose [Mass/Vol] 169 mg/dL Critically high 74-106 [facility] Comment on above: Performed By: #### C MREP #### [facility] [address] [place] [address] Dr. Caroline Bell Glucose [Mass/Vol] 117 mg/dL Critically high 74-106 [facility] Comment on above: Performed By: #### I NSULIN #### [facility] [address] [place] [address] Dr. Caroline Bell PROF 14(COMP METB)on 022 Albumin [Mass/Vol] 3.0 g/dL Critically low 3.4-5.0 Th [facility] Comment on above: Performed By: #### C MREP #### [facility] [address] [place] [address] Dr. Caroline Bell Albumin/Globulin [Mass ratio] 0.9 {ratio} Normal [facility] Comment on above: Performed By: #### C MREP #### [facility] [address] [place] [address] Dr. Caroline Bell ALP [Catalytic activity/Vol] 80 U/L Normal 46-116 [facility] Comment on above: Performed By: #### C MREP #### [facility] [address] [place] [address] Dr. Caroline Bell ALT [Catalytic activity/Vol] 13 U/L Critically low 16-63 [facility] Comment on above: Performed By: #### C MREP #### [facility] [address] [place] [address] Dr. Caroline Bell Anion gap [Moles/Vol] 8.0 mmol/L Normal [facility] Comment on above: Performed By: #### C MREP #### [facility] [address] [place] [address] Dr. Caroline Bell AST [Catalytic activity/Vol] 13 U/L Critically low 15-37 [facility] Comment on above: Performed By: #### C MREP #### [facility] [address] [place] [address] Dr. Caroline Bell Bilirubin [Mass/Vol] 0.3 mg/dL Normal 0.2-1.0 [facility] Comment on above: Performed By: #### C MREP #### [facility] [address] [place] [address] Dr. Caroline Bell Calcium [Mass/Vol] 8.4 mg/dL Critically low 8.5-10.1 Th e [facility] Comment on above: Performed By: #### C MREP #### [facility] [address] [place] [address] Dr. Caroline Bell Chloride [Moles/Vol] 108 mmol/L Critically high 98-107 [facility] Comment on above: Performed By: #### C MREP #### [facility] [address] [place] [address] Dr. Caroline Bell CO2 [Moles/Vol] 28.1 mmol/L Normal 21.0-32.0 [facility] Comment on above: Performed By: #### C MREP #### [facility] [address] [place] [address] Dr. Caroline Bell Creatinine [Mass/Vol] 1.69 mg/dL Critically high 0.70-1.30 [facility] Comment on above: Performed By: #### C MREP #### [facility] [address] [place] [address] Dr. Caroline Bell EGFR-AF BULGARIAN 49 mL/min/1.73m2 Critically low >=60 [facility] Comment on above: Performed By: #### C MREP #### [facility] [address] [place] [address] Dr. Caroline Bell EGFR-NON AF BULGARIAN 40 mL/min/1.73m2 Critically low >=60 [facility] Comment on above: Performed By: #### C MREP #### [facility] [address] [place] [address] Dr. Caroline Bell Globulin (S) [Mass/Vol] 3.3 g/dL Normal [facility] Comment on above: Performed By: #### C MREP #### [facility] [address] [place] [address] Dr. Caroline Bell Glucose [Mass/Vol] 220 mg/dL Critically high 74-106 T [facility] Comment on above: Performed By: #### C MREP #### [facility] [address] [place] [address] Dr. Caroline Bell Potassium [Moles/Vol] 5.1 mmol/L Normal 3.5-5.1 [facility] Comment on above: Performed By: #### C MREP #### [facility] [address] [place] [address] Dr. Caroline Bell Protein [Mass/Vol] 6.3 g/dL Critically low 6.4-8.2 Th [facility] Comment on above: Performed By: #### C MREP #### [facility] [address] [place] [address] Dr. Caroline Bell Sodium [Moles/Vol] 139 mmol/L Normal 136-145 [facility] Comment on above: Performed By: #### C MREP #### [facility] [address] [place] [address] Dr. Caroline Bell Urea nitrogen [Mass/Vol] 32.0 mg/dL Critically high 7.0-18.0 [facility] Comment on above: Performed By: #### C MREP #### [facility] [address] [place] [address] Dr. Caroline Bell Urea nitrogen/Creatinine [Mass ratio] 18.9 mg/mg Normal [facility] Comment on above: Performed By: #### C MREP #### [facility] [address] [place] [address] Dr. Caroline Bell PROF CHEM 8 (BAS METB)on Anion gap [Moles/Vol] 14.2 mmol/L Normal [facility] Comment on above: Performed By: #### I NSULIN #### [facility] [address] [place] [address] Dr. Caroline Bell Calcium [Mass/Vol] 8.8 mg/dL Normal 8.5-10.1 [facility] Comment on above: Performed By: #### I NSULIN #### [facility] [address] [address] [address] Caroline Bell Chloride [Moles/Vol] 110 mmol/L Critically high 98-107 [facility] Comment on above: Performed By: #### I NSULIN #### [facility] [address] [address] [address] Caroline Bell CO2 [Moles/Vol] 21.7 mmol/L Normal 21.0-32.0 [facility] Comment on above: Performed By: #### I NSULIN #### [facility] [address] [address] [address] Caroline Bell Creatinine [Mass/Vol] 2.07 mg/dL Critically high 0.70-1.30 [facility] Comment on above: Performed By: #### I NSULIN #### [facility] [address] [place] [address] Dr. Caroline Bell EGFR-AF BULGARIAN 39 mL/min/1.73m2 Critically low >=60 [facility] Comment on above: Performed By: #### I NSULIN #### [facility] [address] [place] [address] Dr. Caroline Bell EGFR-NON AF BULGARIAN 32 mL/min/1.73m2 Critically low >=60 [facility] Comment on above: Performed By: #### I NSULIN #### [facility] [address] [place] [address] Dr. Caroline Bell Glucose [Mass/Vol] 126 mg/dL Critically high 74-106 T [facility] Comment on above: Performed By: #### I NSULIN #### [facility] [address] [place] [address] Dr. Caroline Bell Potassium [Moles/Vol] 4.9 mmol/L Normal 3.5-5.1 [facility] Comment on above: Performed By: #### I NSULIN #### [facility] [address] [place] [address] Dr. Caroline Bell Sodium [Moles/Vol] 141 mmol/L Normal 136-145 [facility] Comment on above: Performed By: #### I NSULIN #### [facility] [address] [place] [address] Dr. Caroline Bell Urea nitrogen [Mass/Vol] 34.0 mg/dL Critically high 7.0-18.0 [facility] Comment on above: Performed By: #### I NSULIN #### [facility] [address] [place] [address] Dr. Caroline Bell Urea nitrogen/Creatinine [Mass ratio] 16.4 mg/mg Normal [facility] Comment on above: Performed By: #### I NSULIN #### [facility] [address] [place] [address] Dr. Caroline Bell PROTIMEon 06-10-2022 INR Coag (PPP) [Relative time] 1.43 {INR} Normal [facility] Comment on above: Performed By: #### I NSULIN #### [facility] [address] [place] [address] Dr. Caroline Bell INR GUIDELINES SEE BELOW Normal [facility] Comment on above: Result Comment: HANG RED INR: 2.0 - 3.0 CONDITIONS NOT LISTED BELOW 2.5 - 3.5 FOR PROSTHETIC HEART VALVE REPLACEMENT 2.5 - 3.5 RECURRENT THROMBOSIS Performed By: #### I NSULIN #### [facility] [address] [place] [address] Dr. Caroline Bell PT Coag (PPP) [Time] 15.1 s Critically high 9.0-11.6 [facility] Comment on above: Performed By: #### I NSULIN #### [facility] [address] [place] [address] Dr. Caroline Bell PTTon 06-10-2022 aPTT Coag (Bld) [Time] 28.2 s Normal 22.3-36.2 [facility] Comment on above: Performed By: #### I NSULIN #### [facility] [address] [place] [address] Dr. Caroline Bell T4on 06-10-2022 T4 [Mass/Vol] 4.40 ug/dL Critically low 4.50-12.10 [facility] Comment on above: Performed By: #### V ITJAVI PSAJHON #### [facility] [address] [place] [address] Dr. Caroline Bell TSHon 06-10-2022 TSH 0.911 uIU/mL Normal 0.358-3.740 [facility] Comment on above: Performed By: #### P OCGLUC #### [facility] [address] [place] [address] HEAD WO CONon [...] TONY IYER Date: 2022-05-07 07:15 Normal [facility] CBC AUTO DIFFon 05-02-2022 BASO # 0.1 103/ul Normal 0.0-0.1 [facility] Comment on above: Performed By: #### V ITAD, PSASC #### [facility] [address] [place] [address] Dr. Caroline Bell Basophils/100 WBC (Bld) 0.5 % Normal 0.2-2.0 [facility] Comment on above: Performed By: #### V ITJAVI, PSASC #### [facility] [address] [place] [address] Dr. Caroline Bell EO # 0.6 103/ul Normal 0.0-0.7 [facility] Comment on above: Performed By: #### V ITAD, PSASC #### [facility] [address] [place] [address] Dr. Caroline Bell Eosinophils/100 WBC (Bld) 4.6 % Normal 0.9-7.0 [facility] Comment on above: Performed By: #### V ITAD, PSASC #### [facility] [address] [place] [address] Dr. Caroline Bell Erythrocyte distribution width (RBC) [Ratio] 14.4 % Normal 11.0-15.0 [facility] Comment on above: Performed By: #### V ITAD, PSASC #### [facility] [address] [place] [address] Dr. Caroline Bell Hematocrit (Bld) [Volume fraction] 34.7 % Critically low 42.0-54.0 [facility] Comment on above: Performed By: #### V ITAD, PSASC #### [facility] [address] [place] [address] Dr. Caroline Bell Hemoglobin (Bld) [Mass/Vol] 11.1 g/dL Critically low 14.0-18.0 [facility] Comment on above: Performed By: #### V ITAD, PSASC #### [facility] [address] [place] [address] Dr. Caroline Bell IG # 0.05 10e3/ul Critically high 0.00-0.03 [facility] Comment on above: Performed By: #### V ITAD, PSASC #### [facility] [address] [place] [address] Dr. Caroline Bell IG % 0.4 % Normal 0.0-0.5 [facility] Comment on above: Performed By: #### V ITAD, PSASC #### [facility] [address] [place] [address] Dr. Caroline Bell LYMPH # 1.8 103/ul Normal 1.2-3.8 [facility] Comment on above: Performed By: #### V ITAD, PSASC #### [facility] [address] [place] [address] Dr. Caroline Bell Lymphocytes/100 WBC (Bld) 13.4 % Critically low 20.5-60.0 [facility] Comment on above: Performed By: #### V ITAD, PSASC #### [facility] [address] [place] [address] Dr. Caroline Bell MANUAL DIFF REQ NO Normal [facility] Comment on above: Performed By: #### V ITAD, PSASC #### [facility] [address] [place] [address] Dr. Caroline Bell MCH (RBC) [Entitic mass] 29.7 pg Normal 25.9-34.0 [facility] Comment on above: Performed By: #### V ITAD, PSASC #### [facility] [address] [place] [address] Dr. Caroline Bell MCHC (RBC) [Mass/Vol] 32.0 g/dL Normal 29.9-35.2 [facility] Comment on above: Performed By: #### V ITAD, PSASC #### [facility] [address] [place] [address] Dr. Caroline Bell MCV (RBC) [Entitic vol] 92.8 fL Normal 80.0-94.0 [facility] Comment on above: Performed By: #### V ITAD, PSASC #### [facility] [address] [place] [address] Dr. Caroline Bell MONO # 0.9 103/ul Critically high 0.3-0.8 [facility] Comment on above: Performed By: #### V ITAD, PSASC #### [facility] [address] [place] [address] Dr. Caroline Bell Monocytes/100 WBC (Bld) 6.8 % Normal 1.7-12.0 [facility] Comment on above: Performed By: #### V ITAD, PSASC #### [facility] [address] [place] [address] Dr. Caroline Bell NEUT # 9.7 103/ul Critically high 1.4-6.5 [facility] Comment on above: Performed By: #### V ITAD, PSASC #### [facility] [address] [place] [address] Dr. Caroline Bell Neutrophils/100 WBC (Bld) 74.3 % Normal 43.0-75.0 [facility] Comment on above: Performed By: #### V ITAD, PSASC #### [facility] [address] [address] [address] Caroline Bell Platelet mean volume (Bld) [Entitic vol] 10.0 fL Normal 9.5-13.5 [facility] Comment on above: Performed By: #### V ITAD, PSASC #### [facility] [address] [address] [address] Caroline Bell PLT 296 103/ul Normal 150-450 [facility] Comment on above: Performed By: #### V ITAD, PSASC #### [facility] [address] [address] [address] Caroline Bell RBC 3.74 106/ul Critically low 4.70-6.10 [facility] Comment on above: Performed By: #### V ITAD, PSASC #### [facility] [address] [address] [address] Caroline Bell WBC 13.1 103/ul Critically high 4.0-11.0 [facility] Comment on above: Performed By: #### V ITAD, PSASC #### [facility] [address] [place] [address] CSPINE WO CONon [...] TONY IYER Date: 2022-05-02 15:14 Normal [facility] CT HEAD WO CONon 05-02-2022 CT [...] TONY IYER Date: 2022-05-02 15:08 Normal [facility] PROTIMEon 05-02-2022 INR Coag (PPP) [Relative time] 3.49 {INR} Normal [facility] Comment on above: Performed By: #### P OCGLUC #### [facility] [address] [place] [address] Dr. Caroline Bell INR GUIDELINES SEE BELOW Normal [facility] Comment on above: Result Comment: HANG RED INR: 2.0 - 3.0 CONDITIONS NOT LISTED BELOW 2.5 - 3.5 FOR PROSTHETIC HEART VALVE REPLACEMENT 2.5 - 3.5 RECURRENT THROMBOSIS Performed By: #### P OCGLUC #### [facility] [address] [place] [address] Dr. Caroline Bell PT Coag (PPP) [Time] 34.7 s Critically high 9.0-11.6 [facility] Comment on above: Performed By: #### P OCGLUC #### [facility] [address] [place] [address] Dr. Caroline Bell PTTon 05-02-2022 aPTT Coag (Bld) [Time] 47.0 s Critically high 22.3-36.2 [facility] Comment on above: Performed By: #### P OCGLUC #### [facility] [address] [place] [address] Dr. Caroline Bell Covid-19 PCR (CVDTBH)on 01-16 SARS-CoV-2 (COVID-19) RNA DANILO+probe Ql (Unsp spec) Not detected Normal NOT DETECTED [facility] Comment on above: Result Comment: This test is not yet approved or cleared by the [place] FDA. When there are no FDA-approved or cleared tests available, and other criteria are met, FDA can make tests available under an emergency access mechanism called an Emergency Use Authorization (EUA). The EUA for this test is supported by the [employer] Attorney of Health and Human Service's (HHS's) declaration [...] SARS-CoV-2. Performed By: #### C MREP #### [facility] [address] [place] [address] Dr. Caroline Bell SYMPTOMATIC COVID-19 ANTIGEN on 01-28-2022 EUA Statement SEE BELOW Normal [facility] Comment on above: Result Comment: [...] sooner. Performed By: #### I NSULIN #### [facility] [address] [place], [place] [address] Dr. Caroline Bell SARS-CoV-2 (COVID-19) RNA DANILO+probe Ql (Unsp spec) Negative Normal NEGATIVE [facility] Comment on above: Performed By: #### I NSULIN #### [facility] [address] [place], [place] [address] Dr. Caroline Bell Office Visit (Cardiology)on 09-04-2021 [...] Instructions By signing my name below, I, Everton Cleveland LPNScribe, attest that this documentation has been prepared [...] History of Complete colonoscopy PROCEDURE DATE [id number] [place] History of Rotator cuff repair History of [...] Sodium 2 MG Oral Tabletas directed by [facility] Allergies Medication Zithromax TABS Adverse [...] Recorded: 04Sep2021 08:49AM Heart Rate60, L Radial Pykdovth074, RUE, Sitting Dlkgnxlbk00, RUE, Sitting Height5 ft 8 in Gbzwol073 lb BMI Cqjmcdkbgt98.84 kg/m2 BSA Calculated2.11 Tobacco Useb) No Fall Screeninga) No falls within the last year Signatures Electronically signed by : Nick Razo DO; Sep 04 2021 9:01AM EST (Author) Normal [facility] Tobacco Screening.on 022 Fall risk assessment a) No falls within the last year [facility] DO Work Phone: Tobacco use status [facility] b) No -[facility] DO Work Phone: [facility] CARDIAC STRESS/REST INJE CTIONon 01-25-2021 [facility] CARDIAC STRESS/REST INJECTION Patient Name: KIM GARRISON STUDY: MYOCARDIAL PERFUSION STRESS TEST WITH LEXISCAN Performing facility: [facility], [address] [place] [address], [address], [address] Provider: Nick Razo DO, FACC PCP: Dr. Arlene Harrison Supervising provider: Bao Sheehan MD, FACC INDICATION: Chest Pain; HISTORY: Gender: M; Age: 70 y/o ; Height: 172.72 cm; Weight: 98.0869401 kg. High Cholesterol; Diabetes; Previous PR; HTN; Quit smoking 38 years ago. COMPARISON: Previous nuclear testing completed [id number] at [facility]. ACCESSION NUMBER(S): [id number]; [id number]; [id number] ORDERING CLINICIAN: NICK RAZO TECHNIQUE: ONE DAY [...] changes. Electronically signed by: BAO SHEEHAN MD [facility] Vital Signs Date Time Vital Sign Value Performing Clinician Faci sedrick 09-08-2024 14:07-0500 Blood Pressure Location Nick NILL [facility] [place] 09-08-2024 14:07-0500 Diastolic blood pressure 74 mm[Hg] Nick NILL [facility] 09-08-2024 14:07-0500 Heart rate 72 /min Nick NILL [facility] 09-08-2024 14:07-0500 Respiratory rate 16 /min Nick NILL [facility] 09-08-2024 14:07-0500 Systolic blood pressure 116 mm[Hg] Nick NILL [facility] 12-19-2021 15:14-0400 Diastolic blood pressure 70 mm[Hg] Nick NILL [facility] 12-19-2021 15:14-0400 Heart rate 68 /min Nick NILL [facility] [place] 12-19-2021 15:14-0400 Respiratory rate 16 /min Nick HUERTASL [facility] [place] 12-19-2021 15:14-0400 Systolic blood pressure 116 mm[Hg] Nick NILL General Surgery [place] 09-04-2021 08:49-0500 Body height 172.72 cm Kier M Hoy Work Phone: [facility] DO Work Phone: 09-04-2021 08:49-0500 Body mass index (BMI) [Ratio] 32.84 kg/m2 Iker M Hoy Work Phone: [facility] DO Work Phone: 09-04-2021 08:49-0500 Body surface area Derived from formula 2.11 m2 Iker M Hoy Work Phone: [facility] 250 DO Work Phone: 09-04-2021 08:49-0500 Body weight 97.98 kg Iker M Hoy Work Phone: [facility] DO Work Phone: 09-04-2021 08:49-0500 Diastolic blood pressure 66 mm[Hg] Iker M Hoy Work Phone: [facility] DO Work Phone: 09-04-2021 08:49-0500 Heart rate 60 /min Iker M Hoy Work Phone: [facility] DO Work Phone: 09-04-2021 08:49-0500 Systolic blood pressure 138 mm[Hg] Iker M Hoy Work Phone: [facility] DO Work Phone: Encounters Encounter Date Encounter Type Care Provider Facility Start: 01-27-2025 End: 01-27-2025 ambulatory [facility] Start: 01-26-2025 ambulatory [facility] Start: 01-17-2025 ambulatory Willie Galloway acility:[facility] Start: 12-23-2024 End: 12-23-2024 ambulatory [facility] Start: 12-21-2024 ambulatory [facility] Start: 11-22-2024 ambulatory [facility] Start: 10-20-2024 End: 10-20-2024 ambulatory [facility] Start: 10-12-2024 End: 10-12-2024 ambulatory Nick ANGEL Facility: [facility] Start: 10-12-2024 End: 10-12-2024 Patient encounter procedure Nick ANGEL [facility] [place] Start: 09-29-2024 End: 09-29-2024 ambulatory Iker Harrison MD Work Phone: [facility] Work Phone: Start: 09-29-2024 End: 09-29-2024 Departed Referred Iker Harrison MD Work Phone: [facility] [place] [facility] Start: 09-28-2024 End: 09-29-2024 ambulatory Iker Harrison MD Work Phone: [facility] Work Phone: Start: 09-28-2024 End: 09-28-2024 Departed Referred Iker Harrison MD Work Phone: [facility] [place] [facility] Start: 09-16-2024 ambulatory [facility] Start: 09-09-2024 Registered Recurring Iker payan MD Work Phone: [facility] Start: 09-08-2024 End: 09-08-2024 ambulatory Nick ANGEL Facility:[facility] Start: 09-08-2024 End: 09-08-2024 Patient encounter procedure Nick ANGEL [facility] [place] Start: 07-28-2024 ambulatory [facility] Start: 07-13-2024 ambulatory [facility] Start: 06-29-2024 ambulatory [facility] Start: 06-21-2024 ambulatory [facility] Start: 05-19-2024 ambulatory [facility] Start: 05-04-2024 ambulatory [facility] Start: 03-30-2024 End: 03-30-2024 ambulatory [facility] Start: 03-19-2024 ambulatory [facility] Start: 02-05-2024 ambulatory [facility] Start: 04-14-2023 End: 04-14-2023 Patient encounter procedure Caleb KHAN [facility] Start: 12-11-2022 End: 12-12-2022 ambulatory GAVINO DE LA FUENTE Facility:[facility]1 Start: 11-13-2022 End: 11-14-[address] [...] . Facility:[facility] Start: 04-18-2022 End: 05-18-2022 ambulatory TRONCOSO H RODOLFO Facility:[facility] Start: 03-18-2022 End: 04-17-2022 ambulatory TRONCOSO Ankit DEJESUSWLAKESHA Facility:[facility] Start: 02-15-2022 End: 03-15-2022 ambulatory SHAIKH Ankit REYNOLDS Facility:[facility] Start: 01-28-2022 End: 01-28-[address] IKER HARRISON . Facility:[facility] Start: 01-16-2022 End: 02-15-2022 ambulatory TRONCOSO Ankit FAWWAFatou Facility:[facility] Start: 01-15-2022 End: 01-16-[address] CALEB KHAN . Facility:[facility] Start: 12-19-2021 End: 12-19-2021 Patient encounter procedure Nick ANGEL General Surgery [facility] Start: 12-17-2021 End: 01-15-2022 ambulatory TRONCOSO H FAWLAKESHA Facility:[facility] Start: 09-04-2021 Office outpatient visit 25 minutes Iker Harrison Work Phone: [facility] DO Work Phone: Start: 06-01-2021 Rx Renewal Iker Harrison Work Phone: [facility] [place] Work Phone: Start: 10-14-2018 Patient encounter procedure Jonnathan Amaya Facility:[id number] Start: 03-05-2017 End: 03-06-2017 Ambulatory DEFAULT PHYSICIAN Facility:[facility] Procedures Date Procedure Procedure Detail Performing Clinician Start: 09-29-2024 Excision of lesion of skin Nick ANGEL Start: 10-07-2023 Cardioversion Nick Juliet NOGUERA Start: 09-23-[address] KVNG HARRISON . Comment on above: Performed By: #### V ITAD, PSASC #### [facility] [address] [place] [address] Dr. Caroline Bell Start: 01-15-[address] KVNG HARRISON . Comment on above: Performed By: #### P SAD #### [facility] [address] [place] [address] Dr. Caroline Bell Start: 10-08-2016 Cystoscopy Nick VJ LL Arthroscopy of shoulder Mukesh ael NILL Cholecystectomy Iker Almeida y Work Phone: Cholecystectomy Nick NILL Colonoscopy Nick NILL Extraction of cataract Jaydon el NILL Implantation of inse rtable loop recorder Nick NILL Insertion of inferio r vena caval filter Nick NILL Repair of musculoten dinous cuff of shoulder Iker Harrison Work Phone: Tooth extraction Iker Stevenson H oy Work Phone: Total colonoscopy Iker M Hoy Work Phone: Comment on above: PROCEDURE DATE 2015BELLEVUE; Plan of Treatment Date Care Activity Detail Author Start: 02-26-2022 FUV, Provider: Nick Razo, Status: Pen, Time: 10:45 AM [facility]UV, Provider: Nick Razo, Status: Pen, Time: 10:45 [facility] Work Phone: Start: 09-04-2021 FUV, Provider: Nick Razo, Status: Pen, Time: 8:45 AM [facility]UV, Provider: Nick Razo, Status: Pen, Time: 8:[address] [facility] [place] Work Phone: Immunizations Immunization Date Immunization Notes Care Provider Fa taryn 07-16-2021 Pfizer-BioNTech COVI D-19 Vacc 30 MCG/0.3ML Intramuscular Suspension Iker Almeiday Work Phone: [facility] 250 DO Work Phone: 05-09-2021 influenza, injectable,quadrivalent, preservative free, pediatric Iker Stevenson Hoy Work Phone: [facility] DO Work Phone: 02-04-2021 diphtheria, tetanus toxoids and pertussis vaccine Iker Stevenson Hoy Work Phone: [facility] DO Work Phone: 11-14-2020 Pfizer-BioNTech COVI D-19 Vacc 30 MCG/0.3ML Intramuscular Suspension Iker Stevenson Hoy Work Phone: [facility] DO Work Phone: 10-23-2020 Pfizer-BioNTech COVI D-19 Vacc 30 MCG/0.3ML Intramuscular Suspension Iker Stevenson Hoy Work Phone: [facility] Work Phone: 10-16-2020 SARS-CoV-2 (COVID-19 ) mRNA BNT-162b2 vax Nick ANGEL General Surgery [place] 05-24-2020 Seasonal trivalent influenza vaccine, adjuvanted, preservative free Iker M Hoy Work Phone: [facility] Work Phone: 04-18-2020 influenza virus vacc ine, unspecified formulation Iker M Hoy Work Phone: [facility] 250 DO Work Phone: 05-18-2019 influenza virus vacc ine, unspecified formulation Iker M Hoy Work Phone: [facility] 250 DO Work Phone: 03-25-2019 Seasonal trivalent influenza vaccine, adjuvanted, preservative free Iker M Hoy Work Phone: [facility] DO Work Phone: 09-22-2018 influenza, seasonal, injectable Iker M Hoy Work Phone: [facility] 250 DO Work Phone: 09-22-2018 pneumococcal polysaccharide vaccine, 23 valent Iker M Hoy Work Phone: [facility] 250 DO Work Phone: 07-18-2018 influenza virus vacc ine, unspecified formulation Iker M Hoy Work Phone: [facility] 250 DO Work Phone: 04-05-2018 influenza, injectabl e, quadrivalent, preservative free Iker M Hoy Work Phone: [facility] 250 DO Work Phone: 07-07-2017 pneumococcal conjuga te vaccine, 13 valent Iker M Hoy Work Phone: [facility] 250 DO Work Phone: 03-26-2017 Seasonal trivalent influenza vaccine, adjuvanted, preservative free Iker Harrison Work Phone: [facility] 250 DO Work Phone: 08-18-2016 pneumococcal polysaccharide vaccine, 23 valent Iker Harrison Work Phone: [facility] 250 DO Work Phone: Payers Date Payer Category Payer Self-pay [id number] 1958 Private Health Insurance [id number] 1958 Self-pay [id number] 1950 Unknown [id number] 2.16. [id number] 1950 Unknown [id number] 2.16.84 0.1.079882.3.579.2.593 1950 Unknown [id number] 2.16.84 0.1.022578.3.579.2.593 1950 Unknown [id number] 2.16.84 0.1.018621.3.579.2.593 1951 Unknown [id number] 2.16.84 0.1.286850.3.579.2.593 1951 Unknown [id number] 2.16.84 0.1.956600.3.579.2.593 1951 Unknown [id number] 2.16.84 0.1.950726.3.579.2.593 1951 Unknown [id number] 2.16.84 0.1.416131.3.579.2.593 1951 Unknown [id number] 2.16.84 0.1.649164.3.579.2.593 1951 Unknown [id number] 2.16.84 0.1.024667.3.579.2.593 1951 Unknown [id number] 2.16.84 0.1.912596.3.579.2.593 1951 Unknown [id number] 2.16.84 0.1.657288.3.579.2.593 1951 Unknown [id number] 2.16.84 0.1.513481.3.579.2.593 1951 Unknown [id number] 2.16.84 0.1.009225.3.579.2.593 1951 Unknown [id number] 2.16.84 0.1.011787.3.579.2.593 1951 Unknown [id number] 2.16.84 0.1.424989.3.579.2.593 1951 Unknown [id number] 2.16.84 0.1.413127.3.579.2.593 1951 Unknown [id number] 2.16.84 0.1.879668.3.579.2.593 1951 Unknown [id number] 2.16.84 0.1.844472.3.579.2.593 1951 Unknown [id number] 2.16.84 0.1.491345.3.579.2.593 1951 Unknown [id number] 2.16.84 0.1.411742.3.579.2.593 1951 Unknown [id number] 2.16.84 0.1.356337.3.579.2.593 1951 Unknown [id number] 2.16.84 0.1.274729.3.579.2.593 1951 Unknown [id number] 2.16.8 40.1.605410.3.579.2.727 1951 Unknown [id number] 2.16.8 40.1.044990.3.579.2.727 1951 Unknown [id number] 2.16.8 40.1.237863.3.579.2.727 Unknown Unknown [id number] Unknown [id number] 2.16.8 40.1.263077.3.579.2.531 Unknown [id number] 2.16.8 40.1.048329.3.579.2.531 Social History Date Type Detail Facility Tobacco smoking stat [facility] Unknown if ever smoked [facility] Start: 1950 Sex Assigned At Male F [facility] No alcohol use No alcohol use [facility] DO Work Phone: Comment on above: QUIT CIGS 1982; 1 CUP COFFEE DAILY, DIET SODA 1 BOTTLE DAILY; Start: 12-19-2021 End: 09-08-2024 Tobacco smoking status Ex-smoker (finding) [facility] [place] Tobacco smoking status Never Gener al Surgery [place] Sex Assigned At Male Genera [facility] [place] Start: 10-01-2024 End: 10-05-2024 Sex Male (finding) [facility] Goals Date Patient Goal Desired Activity /State Functional Status Date Assessment Result Facility 10-12-2024 Functional Status N/A [facility] [place] 09-08-2024 Functional Status N/A [facility] [place] Clinical Notes 01-18-2022 to 01-27-2025 Note Date & Type Note Facility 01-27-2025 Note Cardiovascular Medic [facility] Cardiology SUBJECTIVE Chief Complaint Patient presents with Atrial Fibrillation Coronary Artery Disease Hyperlipidemia Kim Garrison is a 74 y.o. male here for follow-up. His brother accompanied him today. PMHx: a.fib s/p ablation and LOOP recorder, CAD, HLD, HTN, DM type II, CKD, COPD, DVT, MR/TR HPI 01/27/2025 He has intermittent palpitations along with some chest pains at rest. He c/o fatigue and ANDERSON along with BLE edema. Have been ongoing for a few months. Denies orthopnea, PND, syncope, bleeding issues. 10/20/2024 Since I last saw patient, he has undergone a cardioversion along with an a.fib ablation and LOOP monitor placement. He has intermittent chest pain - occurring less often than before. Located midsternal - nonradiating. Occasionally will wake him from his sleep. He gets out of bed and sit up in a chair and things improve. He reports multiple family members with hx of heart disease. He has leg swelling, this seems stable. Denies weight gain. Denies ANDERSON, orthopnea, PND, palpitations, syncope. 12/31/2022 After last visit, another 30 day [...] as a new patient while admitted to [facility] for c/o syncope. He was found to [...] disease (CMS/HCC) Dependent edema Depressive disorder Diabetes mellitus, type 2 (CMS/HCC) Family history of malignant neoplasm of prostate History of migraine History of myocardial infarction Hyperkalemia Hyperlipidemia Hypertension Injury of head group home current use of anticoagulant therapy Microscopic hematuria Nocturia Posttraumatic stress disorder Stage 3 chronic kidney disease (CMS/HCC) Acute bronchitis Acute embolism and thrombosis of unspecified deep veins of right lower extremity (CMS/HCC) Allergic rhinitis Arthritis Chronic congestive heart failure ([facility]) Chronic pulmonary embolism ([facility]) Concussion with loss of consciousness <= 30 min Coronary artery disease Deep vein phlebitis and thrombophlebitis of lower extremity, unspecified laterality ([facility]) Fatigue Diabetic renal disease ([facility]) Fracture of coccyx, initial encounter for closed fracture ([facility]) Gagan filter in place Impacted cerumen Iron deficiency Multiple injuries Major depressive disorder, single episode, unspecified Overweight Pain in limb Peripheral vertigo Right upper quadrant pain Superficial thrombophlebitis Tobacco user Benign prostatic hyperplasia Edema Hypercholesterolemia Chronic kidney disease, stage III (moderate) ([facility]) Post-traumatic stress disorder Syncope and collapse BMI 35.0-35.9,adult Elevated blood pressure reading Feeling of incomplete bladder emptying 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 ([facility]) Senile solar keratosis Suicidal ideation Abnormal result of cardiovascular function study, unspecified Nonrheumatic mitral (valve) insufficiency Rheumatic tricuspid insufficiency S/P ablation of atrial fibrillation Dementia ([facility]) Anxiety Neoplasm of uncertain behavior of skin of forearm Obesity due to excess calories Cardiovascular stress test abnormal Other chest pain Past Medical History: Diagnosis Date A-fib ([facility]) Abnormal ECG Arrhythmia Awareness under anesthesia Bradycardia Diabetes mellitus ([facility]) HLD (hyperlipidemia) Hypertension Obesity BMI 33.91 Syncope Family History Problem Relation Name Age of Onset Coronary artery disease Mother Coronary artery disease Father Heart attack Father Social History Tobacco Use Smoking status: Former Current packs/day: 0.00 Types: Cigarettes Start date: 1977 Quit date: 1982 Years since quittin.4 Smokeless tobacco: Never Vaping Use Vaping status: Never Used Substance Use Topics Alcohol use: Not Currently Drug use: Never Allergies Allergen Reactions Oxycodone-Acet (more content not included)... [facility] 01-27-2025 Note Patient is here toda y for a follow up appointment S/P angiogram. Patient states he feels so, so, at night he feels his heart miss firing and can feel thump, thump. Patient states he has occasional SOB, ANDERSON and chest pain, right leg pain. Review of Systems Cardiovascular: Positive for chest pain, dyspnea on exertion, leg swelling and palpitations. Respiratory: Positive for shortness of breath. [facility] 12-23-2024 Note Patient: Kim correa Procedure Information Date/Time: 12/23/24 1300 Procedure: Coronary angiography - Needs pre-cath hydration before and after - 100ml/hr Location: [facility] [employer]GRAM[employer] [facility]NALY[facility] 3 / [facility] (Cath) Providers: Ciro Tapia MD Clinical information reviewed: Allergies Meds Physical Exam Airway Mallampati: II TM distance: <3 FB Cardiovascular Rhythm: regular Rate: normal Dental Pulmonary Abdominal Anesthesia Plan ASA 3 other (Conscious ) Anesthetic plan and risks discussed with patient. Use of blood products discussed with patient who consented to blood products. Plan discussed with attending. Additional Equipment Requests [facility] 10-20-2024 Note Cardiovascular Medic sukumar Jacob Cardiology SUBJECTIVE Chief Complaint Patient presents with Atrial Fibrillation Kim Garrison is a 74 y.o. male here for follow-up. His brother accompanied him today. HPI 10/20/2024 Since I last saw patient, he has undergone a cardioversion along with an a.fib ablation and LOOP monitor placement. He has intermittent chest pain - occurring less often than before. Located midsternal - nonradiating. Occasionally will wake him from his sleep. He gets out of bed and sit up in a chair and things improve. He reports multiple family members with hx of heart disease. He has leg swelling, this seems stable. Denies weight gain. Denies ANDERSON, orthopnea, PND, palpitations, syncope. 12/31/2022 After last visit, another 30 day [...] as a new patient while admitted to [facility] for c/o syncope. He was found to [...] Patient Active Problem List Diagnosis Atrial fibrillation ([facility]) Benign prostatic hyperplasia with urinary obstruction Chronic obstructive pulmonary disease ([facility]) Dependent edema Depressive disorder Diabetes mellitus, type 2 ([facility]) Family history of malignant neoplasm of prostate History of migraine History of myocardial infarction Hyperkalemia Hyperlipidemia Hypertension Injury of head group home current use of anticoagulant therapy Microscopic hematuria Nocturia Posttraumatic stress disorder Stage 3 chronic kidney disease ([facility]) Acute bronchitis Acute embolism and thrombosis of unspecified deep veins of right lower extremity ([facility]) Allergic rhinitis Arthritis Chronic congestive heart failure ([facility]) Chronic pulmonary embolism ([facility]) Concussion with loss of consciousness <= 30 min Coronary artery disease Deep vein phlebitis and thrombophlebitis of lower extremity, unspecified laterality ([facility]) Fatigue Diabetic renal disease ([facility]) Fracture of coccyx, initial encounter for closed fracture ([facility]) Gagan filter in place Impacted cerumen Iron deficiency Multiple injuries Major depressive disorder, single episode, unspecified Overweight Pain in limb Peripheral vertigo Right upper quadrant pain Superficial thrombophlebitis Tobacco user Benign prostatic hyperplasia Edema Hypercholesterolemia Chronic kidney disease, stage III (moderate) ([facility]) Post-traumatic stress disorder Syncope and collapse BMI 35.0-35.9,adult Elevated blood pressure reading Feeling of incomplete bladder emptying 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 ([facility]) Senile solar keratosis Suicidal ideation Abnormal result of cardiovascular function study, unspecified Nonrheumatic mitral (valve) insufficiency Rheumatic tricuspid insufficiency S/P ablation of atrial fibrillation Dementia ([facility]) Anxiety Neoplasm of uncertain behavior of skin of forearm Obesity due to excess calories Past Medical History: Diagnosis Date A-fib ([facility]) Abnormal ECG Arrhythmia Awareness under anesthesia Bradycardia Diabetes mellitus ([facility]) HLD (hyperlipidemia) Hypertension Obesity BMI 33.91 Syncope Family History Problem Relation Name Age of Onset Coronary artery disease Mother Coronary artery disease Father Heart attack Father Social History Tobacco Use Smoking status: Former Current packs/day: 0.00 Types: Cigarettes Start date: 1977 Quit date: 1982 Years since quittin.2 Smokeless tobacco: Never Vaping Use Vaping status: Never Used Substance Use Topics Alcohol use: Not Currently Drug use: Never Allergies Allergen Reactions Oxycodone-Acetaminophen Hallucinations Zithromax [Azithromycin] ROS Cardiovascular: Positive for leg swelling (intermittent), palpitations ( not often ) and syncope. Musculoskeletal: Positive for myalgias. Neurological: Positive for light-headedness. All other systems reviewed and are negative. OBJECTIVE Visit Vitals BP 128/78 (BP Location: Right arm, Patient Position: Sitting) Pulse 84 Ht 1.727 m (5' (more content not included)... [facility] 10-20-2024 Note Patient here for 6 m o follow up persistent afib, hypertension, and hyperlipidemia. Denies chest pain, SOB, and bleeding on Eliquis. Had routine labs with lipids in Apr 2024. Review of Systems Cardiovascular: Positive for leg swelling (intermittent), palpitations ( not often ) and syncope. Musculoskeletal: Positive for myalgias. Neurological: Positive for light-headedness. All other systems reviewed and are negative. [facility] 09-08-2024 Note General Surgery Offi ce/Clinic Note Chief Complaint consultation for skin lesion HPI Staff 74 year old male presents on consultation from Dr. Harrison for skin lesion right arm. Reports noting [...] plan excisional biopsy under local anesthesia at [facility], informed consent obtained. Follow-up No qualifying data [...] SARS-CoV-2 (COVID-19) mRNA BNT-162b2 vax 10/16/2020 Recorded [facility] Comment on above: Result Comment: Elec tronically Signed By: MERRICK NARAYANAN, Nick Dockery\Date and Time Signed: 09/08/24 16:16 EST 03-30-2024 Note [facility] Consult Note Reason for visit: Syncope/ Afib 03/30/24 Pt is s/p PVI+post box isolation on 12/17/23. Pt feel better now. Yesenia Emmanuel reduced amiodarone and metoprolol at last visit. [...] Value Ventricular Rate 76 Atrial Rate 76 [place] Interval 106 QRS DURATION 106 QT Interval 478 QTC CALCULATION(BAZETT) 537 P [place] -19 R-Houston -48 T Wave [place] 29 Impression Sinus rhythm Since previous tracing with Premature atrial complexes Left axis deviation Pulmonary disease pattern Nonspecific ST and T wave abnormality Abnormal ECG When compared with ECG of 17-DEC-2023 07:59, Sinus rhythm has replaced Atrial fibrilla (more content not included)... [facility] 05-02-2022 Note PROCEDURE: XR SHOULD ER [...] authenticated by: TONY IYER Date: 2022-05-02 15:01 [facility] 01-18-2022 Hospital Discharge instructions Follow Up Care 01/18/2022 09:12:56 With:BILL NARAYANAN, Caleb Wyatt, URL Address: [facility] [address] , [place] [address]- [phone] When: Unknown [facility] Evaluation + Plan note Future Appointments Appointment Date:01/18/2022 08:30:00 AM Scheduled Provider:Caleb KHAN MD Location:[facility] Appointment Type:URO Office Visit General Surgery [place] Evaluation note No assessment inform ation available [facility] Work Phone: History of Present illness [...] to return in 6 months for follow-up. [facility] DO Work Phone: Hospital course Narrative No data available for this section General Surgery [place] Hospital Discharge instructions No data available for this section General Surgery [facility] note No data available for this section [facility] [place] Summary Purpose Family History No Family History Records FoundUnknown Family Member Name Dates Details Heart problem: Mother Status:Active Family history of malignant neoplasm of prostate: Brother(V16.42, Z80.42) Status:Active Family history of malignant neoplasm of colon: Father, Brother(V16.0, Z80.0) Status:Active Relationship Condition Age at Onset Recorded Date/T monserrat Not Specified Hypertension Unknown Advance Directives No Advanced Directives Records Found Advance Directive Response Recorded Date/ Time Advance Directives No September 3:50pm Assessments No Assessments Information AvailableNo Assessments Information [...] section and content) DATE CREATED AUTHOR 02/11/2018 [facility] DATE CREATED AUTHOR AUTHOR'S ORGANIZ ATION 10/29/2018 [facility] DATE CREATED AUTHOR AUTHOR'S ORGANIZ ATION 01/28/2021 [facility] DATE CREATED AUTHOR AUTHOR'S ORGANIZ ATION 09/04/2021 [facility] DATE CREATED AUTHOR AUTHOR'S ORGANIZ ATION 12/15/2022 [facility] DATE CREATED AUTHOR AUTHOR'S ORGANIZ ATION 10/13/2024 [facility] DATE CREATED AUTHOR AUTHOR'S ORGANIZ ATION 01/27/2025 [facility] DATE CREATED AUTHOR AUTHOR'S ORGANIZ ATION 01/28/2025 [facility] Patient Care team informatio n (unrecognized section and content) Team Status: Active Member Role Status Dates Iker Harrison MD Primary Care Provider Active Start: September 09, 2024 Willie Vargas MD Attending Provider Active Start: September 09, 2024 Team Status: Inactive Member Role Status Dates Nick Angel MD FACS Attending Provider Active Start: September 28, 2024 End: September 28, 2024 Team Status: Inactive Member Role Status Dates Nick Angel MD FACS Attending Provider Active Start: September 29, 2024 End: September 29, 2024 Goals (unrecognized section and content) Goals may [...] BE BASED ON THE PRIMARY CLINICAL RECORDS. [employer] provides no warranty or guarantee of the accuracy or completeness of information in this document.
[2025-02-10 10:38] LABS: Alanine Aminotransferase 16 U/L (16-63); Albumin Globulin Ratio 0.8; Albumin Level 3.3 g/dL (3.4-5.0); Alkaline Phosphatase 105 U/L (46-116); Anion Gap 12.7; Aspartate Amino Transferase 13 U/L (15-37); BUN Creatinine Ratio 16.6; Bilirubin Total 0.5 mg/dL (0.2-1.0); Carbon Dioxide 23.9 mmol/L (21.0-32.0); Chloride 107 mmol/L (98-107); Chol HDL Ratio 2.4; Cholesterol 111 mg/dL (<=200); Estimated GFR (African America 45 (>=60 mL/min/1.73m^2); Estimated GFR (Non-African Ame 37 (>=60 mL/min/1.73m^2); Globulin 4.3 g/dL; Glucose 270 mg/dL (74-106); HDL Cholesterol 47 mg/dL (40-60); Potassium 4.6 mmol/L (3.5-5.1); Sodium 139 mmol/L (136-145); Total Protein 7.6 g/dL (6.4-8.2); Triglycerides 70 mg/dL (<=150)
== END 2025-02-10 07:49 | disposition home or self-care (01) ==
LOC: LAB 07:49
PROVIDERS: PCP Family Medicine; Visit Provider Nurse Practitioner Family
DX: E78.2 Mixed hyperlipidemia (principal); I25.10 Atherosclerotic heart disease of native coronary artery without angina pectoris
CPT/HCPCS: 36415; 80053; 80061

== ENCOUNTER 2025-06-15 11:23 | Outpatient (OUT) | payer OTHER, SELFPAY ==
--- OUTSIDE RECORDS SUMMARY | 2025-06-15 11:29 | XMS_ITS | Encounter Summary ---
Author Organization [facility] Address [address] [place] [address] Care Team Providers Care Antenna Specialist Name Role Phone Herman Harrison MD Primary Care Provider [phone] Encounter Details DateTypeDepartmentCare Team (Latest Contact Info)Gbtxhgkwcnu10/23/2025Telephone [facility] at [facility] [address] [place] [address] Tova Dumont MA Social History Tobacco UseTypesPacks/DayYears UsedDateSmoking Tobacco: YbltdlMnjorqfwsc5929 - 1982Smokeless Tobacco: NeverAlcohol UseStandard Drinks/WeekCommentsNot Currently 0 (1 standard drink = 0.6 oz pure alcohol)[place] Safety & EnvironmentAnswerDate RecordedFear of Current or Ex-PartnerNot on file10/09/2023Emotionally AbusedNot on file10/09/2023hysically AbusedNot on file10/09/2023Sexually AbusedNot on file10/09/2023hysically or Sexually AbusedNot on file10/09/2023Sex and Gender InformationValueDate RecordedSex Assigned at QtcggOdum76/29/2025 7:51 AM EDT Legal LmpUltb2402/13/2022 11:58 PM EDTGender QtoidocuQcyz30/29/2025 7:51 AM EDT Sexual OrientationDon't know03/15/2025 7:51 AM EDTdocumented as of this encounter Functional Status * BPAnswerDate of MwqoxomkeiTcluml07/71005/10/2025 1:26 PM CHANTELTCSindi cortez MA * PulseAnswerDate of CrlvnastkaGtwfma4239/23/2025 1:26 PM Sindi Otero MA * Patient PositionAnswerDate of HliowqfihtDehactIfmnkgi22/23/2025 1:26 PM EDT Sindi Taylor MA * BPAnswerDate of FagwfuwpbcYddcze82/7109 1:26 PM Sindi Otero MA * PulseAnswerDate of DjpcwydkrqLpyjhj4771 1:26 PM Sindi Otero MA * IgD5YksixaVcct of LupzwdnwpmPsrlaq3656 1:26 PM Sindi Otero MA * BP LocationAnswerDate of AssessmentAuthorRight arm05/10/2025 1:26 PM EDT Sindi Taylor MA * Patient PositionAnswerDate of GqhfpsixfoWujmlfHtnjhwu06/23/2025 1:26 PM EDT Sindi Taylor MA documented as of this encounter Plan of Treatment DateTypeDepartmentCare Team (Latest Contact Info)Exzfqeptmnu04/03/2025 11:30 AM ESTHospital Encounter [facility] [address] [place] [phone] Wesley Saenz MD [address] [place] [address] Paroxysmal atrial fibrillation (CMS/HCC)06/20/2025 11:30 AM EST - 06/20/2025 12:30 PM ESTSurgery [facility] [address] [place] [address] Wesley Saenz MD [address] [place] [address] Hrepoutpcudxb21/05/2025Hospital Encounter [facility] [address] [place] [address] Wesley Saenz MD [address] [place] [phone] NamePriorityAssociated DiagnosesDate/TimeAtrial Fib Ablation w/ PVI Paroxysmal atrial fibrillation (CMS/HCC) documented as of this encounter Visit Diagnoses Not on filedocumented in this encounter Care Teams Team MemberRelationshipSpecialtyStart DateEnd Date Herman Harrison MD [address] [address] [address] PCP - Xtrduxp05/12/22documented as of this encounter
--- OUTSIDE RECORDS SUMMARY | 2025-06-15 11:29 | XMS_ITS | Encounter Summary ---
Author Organization [facility] Address [address] [facility] [place] [place] [address] Care Team Providers Care Hired Help Name Role Phone Herman Harrison MD Primary Care Provider Reason for Referral * (Routine) - Pending ReviewSpecialtyDiagnoses / ProceduresReferred By Contact Referred To Contact Diagnoses Paroxysmal atrial fibrillation (CMS/HCC) Procedures ECG 12 lead Wesley Saenz MD [address] [place] [address] Phone: tel: fax: Referral IDStatusReasonStart DateExpiration DateVisits RequestedVisits [id number] Encounter Details DateTypeDepartmentCare Team (Latest Contact Info)Hvjilsfajya54/21/2025Orders Only [facility] Heart at [facility] [address] [place] [address] Idalia Webber MA Paroxysmal atrial fibrillation (CMS/HCC) (Primary Dx) Social History Tobacco UseTypesPacks/DayYears UsedDateSmoking Tobacco: RwipghHrlseltpop2983 - 1982Smokeless Tobacco: NeverAlcohol UseStandard Drinks/WeekCommentsNot Currently 0 (1 standard drink = 0.6 oz pure alcohol)UT Safety & EnvironmentAnswerDate RecordedFear of Current or Ex-PartnerNot on file10/09/2023Emotionally AbusedNot on file10/09/2023hysically AbusedNot on file10/09/2023Sexually AbusedNot on file10/09/2023hysically or Sexually AbusedNot on file10/09/2023Sex and Gender InformationValueDate RecordedSex Assigned at ConjvSwsp07/29/2025 7:51 AM EDT Legal JyjJgud8702/13/2022 11:58 PM EDTGender LlffgullYpth26/29/2025 7:51 AM EDT Sexual OrientationDon't know03/15/2025 7:51 AM EDTdocumented as of this encounter Plan of Treatment DateTypeDepartmentCare Team (Latest Contact Info)Chljxniitzr77/03/2025 11:30 AM ESTHospital Encounter [facility] [address] [place] [phone] Wesley Saenz MD [address] [place] [address] Paroxysmal atrial fibrillation (CMS/HCC)06/20/2025 11:30 AM EST - 06/20/2025 12:30 PM ESTSurgery [facility] [address] [place] [phone] Wesley Saenz MD [address] [place] [phone] Lpmovtddfatll19/05/2025Hospital Encounter [facility] [address] [place] [address] [phone] Wesley Saenz MD [address] [place] [address] NamePriorityAssociated DiagnosesDate/TimeAtrial Fib Ablation w/ PVI Paroxysmal atrial fibrillation (CMS/HCC) documented as of this encounter Procedures Procedure NamePriorityDate/TimeAssociated DiagnosisCommentsECG 12-LEADRoutine 06/08/2025 1:27 PM EDT Paroxysmal atrial fibrillation (CMS/HCC) documented in this encounter Results * ECG 12 lead (06/08/2025 1:27 PM EDT) Narrative Authorizing ProviderResult TypeResult StatusPatenzin GUTHRIE ORDERABLESFinal Result documented in this encounter Visit Diagnoses Diagnosis Atrial fibrillation (CMS/HCC)- Primary Atrial fibrillation Paroxysmal atrial fibrillation (CMS/HCC) Atrial fibrillation Paroxysmal atrial fibrillation (CMS/HCC)- Primary Atrial fibrillation Paroxysmal atrial fibrillation (CMS/HCC) Atrial fibrillation documented in this encounter Care Teams Team MemberRelationshipSpecialtyStart DateEnd Date Herman Harrison MD [address] [place] [address] PCP - Ggbzknj91/12/22documented as of this encounter
--- OUTSIDE RECORDS SUMMARY | 2025-06-15 11:29 | XMS_ITS | Clinical Summary ---
Author Organization [facility] Address [address] [place] [address], [address] [place] [address] Care Team Providers Care Elevator Adjuster Name Role Phone Unavailable Primary Care Provider Unavailabl e Social History Tobacco UseTypesPacks/DayYears UsedDateSmoking Tobacco: Never AssessedSex and Gender InformationValueDate RecordedSex Assigned at BirthNot on fileLegal Sex Male10/13/2013 11:49 PM ESTGender IdentityNot on fileSexual OrientationNot on file Plan of Treatment Not on file
--- OUTSIDE RECORDS SUMMARY | 2025-06-15 11:29 | XMS_ITS | Encounter Summary ---
Author Organization [facility] Address [address] [place] [address] Care Team Providers Care Burlapper Name Role Phone Herman Harrison MD Primary Care Provider [phone] Encounter Details DateTypeDepartmentCare Team (Latest Contact Info)Esuhsconosw36/27/2025Orders Only [facility] [place] [facility] [address] [place] [phone] Amie Bowman RN Atrial fibrillation (CMS/HCC) (Primary Dx) Social History Tobacco UseTypesPacks/DayYears UsedDateSmoking Tobacco: WqufyxRtpxdsjkfh8933 - 1982Smokeless Tobacco: NeverAlcohol UseStandard Drinks/WeekCommentsNot Currently 0 (1 standard drink = 0.6 oz pure alcohol)AR Safety & EnvironmentAnswerDate RecordedFear of Current or Ex-PartnerNot on file10/09/2023Emotionally AbusedNot on file4Physically AbusedNot on file10/09/2023Sexually AbusedNot on file4Physically or Sexually AbusedNot on file10/09/2023Sex and Gender InformationValueDate RecordedSex Assigned at SztghDstr63/29/2025 7:51 AM EDT Legal CtyFwye5002/13/2022 11:58 PM EDTGender TdjagbofFyvh17/29/2025 7:51 AM EDT Sexual OrientationDon't know03/15/2025 7:51 AM EDTdocumented as of this encounter Plan of Treatment DateTypeDepartmentCare Team (Latest Contact Info)Auhlqhfjbge71/03/2025 11:30 AM ESTHospital Encounter [facility] [address] [place] [phone] Wesley Saenz MD [address] [place] [address] Paroxysmal atrial fibrillation (CMS/HCC)06/20/2025 11:30 AM EST - 06/20/2025 12:30 PM ESTSurgery [facility] [place] [facility] [address] [place] [address] Wesley Saenz MD [address] [place] [phone] Lteckvlcsgkab11/05/2025Hospital Encounter [facility] [address] [place] [phone] Wesley Saenz MD [address] [place] [address] NameTypePriorityAssociated DiagnosesOrder ScheduleCBC and differentialLabRoutine Atrial fibrillation (CMS/HCC) Expected: 06/13/2025 (Approximate), Expires: 06/13/2026asic metabolic panelLab Routine Atrial fibrillation (CMS/HCC) Expected: 06/13/2025 (Approximate), Expires: 06/13/2026NamePriorityAssociated DiagnosesDate/TimeAtrial Fib Ablation w/ PVI Paroxysmal atrial fibrillation (CMS/HCC) documented as of this encounter Visit Diagnoses Diagnosis Atrial fibrillation (CMS/HCC)- Primary Atrial fibrillation Paroxysmal atrial fibrillation (CMS/HCC) Atrial fibrillation Atrial fibrillation (CMS/HCC)- Primary Atrial fibrillation Paroxysmal atrial fibrillation (CMS/HCC) Atrial fibrillation documented in this encounter Care Teams Team MemberRelationshipSpecialtyStart DateEnd Date Herman Harrison MD [address] [facility] [facility] [place] [address] PCP - Huwdehi40/12/22documented as of this encounter
--- OUTSIDE RECORDS SUMMARY | 2025-06-15 11:29 | XMS_ITS | Clinical Summary ---
Author Organization [facility] Address [address] [place] [address] Phone Care Team Providers Care Veterinarian Name Role Phone Herman Harrison MD Primary Care Provider [phone] Social History Tobacco UseTypesPacks/DayYears UsedDateSmoking Tobacco: Never AssessedSex and Gender InformationValueDate RecordedSex Assigned at BirthNot on fileLegal Sex Male07/12/2022 9:52 PM ESTGender IdentityNot on fileSexual OrientationNot on file Last Filed Vital Signs Vital SignReadingTime TakenCommentsBlood Farfujvf433/6601 8:49 AM EST Kwhae7450/18/2022 8:49 AM ESTTemperature--Respiratory Rate--Oxygen Saturation-- Inhaled Oxygen Concentration--Fsihts62 kg (216 lb)09/04/2021 8:49 AM ESTHeight 172.7 cm (5' 8 )09/04/2021 8:49 AM ESTBody Mass Index32.8401 8:49 AM EST Plan of Treatment Not on file Care Teams Team MemberRelationshipSpecialtyStart DateEnd Herman Harrison MD [address] [place] [address] [facility] - General10/14/18
--- OUTSIDE RECORDS SUMMARY | 2025-06-15 11:29 | XMS_ITS | Patient Health Record ---
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 Name Role Phone Antoine Harrison Primary Care Provider [phone] Allergies Allergen (clinical drug ingredient) Drug/Non Drug Allergy documented on EMR Reaction Allergy Type Onset Date Status azithromycin Zithromax lip swelling Drug Allergy Active Results Component Value Reference Range Notes CBC AUTO DIFF Reviewed date:12/16/2024 12:29:52 PM Interpretation: Performing Lab: Notes/Report: [facility] , White Blood Count 9.7 4.0-11.0 10 3/uL Red Blood Count4.164.70-6.10 10 6/eJJadculemts51.914.0-18.0 g/bNZvsatjntqd49.3 42.0-54.0 %Mean Corpuscular Wtzeti52.580.0-94.0 fLMean Corpuscular Hemoglobin 31.025.9-34.0 pgMean Corpuscular HGB Conc32.829.9-35.2 g/dLRed Cell Distribution Width13.611.0-15.0 %Platelet Lrypm684198-346 10 3/uLMean Platelet Qnkbml34.09.5- 13.5 fLNeutrophils Percent Auto65.443.0-75.0 %Lymphocytes Percent Auto20.720.5- 60.0 %Monocytes Percent Auto7.11.7-12.0 %Eosinophils Percent Auto5.60.9-7.0 % Basophils Percent Auto0.80.2-2.0 %Immature Granulocytes Pct Auto0.40.0-0.5 % Neutrophils Absolute Auto6.31.4-6.5 10 3/uLLymphocytes Absolute Auto2.01.2-3.8 10 3/uLMonocytes Absolute Auto0.70.3-0.8 10 3/uLEosinophils Absolute Auto0.50.0- 0.7 10 3/uLBasophils Absolute Auto0.10.0-0.1 10 3/uLImmature Granulocytes Abs Auto0.040.00-0.03 10 3/uLPerforming Lab:see noteML - [facility] LB PROF CHEM 8 (BAS METB) Reviewed date:12/16/2024 03:19:17 PM Interpretation: Performing Lab: Notes/Report: [facility] ,Utjfgq461478-535 mmol/LPotassium4.83.5-5.1 mmol/CIhpiszcx10661-939 mmol/LCarbon Kwnqdxf64.721.0-32.0 mmol/LAnion Gap12.1Lanmvpi49046-698 mg/dLBlood Urea Mrgrdjxl61.07.0-18.0 mg/dLCreatinine1.610.70-1.30 mg/dLEstimated GFR ( Gdwbkww23>=60 mL/min/1.73m 2Estimated GFR (Non- Ame42>=60 mL/min/1.73m 2 BUN Creatinine Ratio17.6Nfzoahk2.08.5-10.1 mg/dLPerforming Lab:see noteML - [facility] LBLIPID PROFILE Reviewed date:02/10/2025 07:37:38 PM Interpretation: Performing Lab: Notes/Report: [facility] ,Rcmywqaqtxhph75<=150 mg/rHVhrudjpfsii189<=200 mg/dLHDL Qlikezpcdej8569-67 mg/dL > or =60 mg/dl - LOW CARDIOVASCULAR RISK <40 mg/dl - HIGH CARDIOVASCULAR RISK LDL Cholesterol Rntdrbhvrj01.0 <100 mg/dl OPTIMAL 100-129 mg/dl NEAR OR ABOVE OPTIMAL 130-159 mg/dl BORDERLINE HIGH 160-189 mg/dl HIGH >190 mg/dl VERY HIGH VLDL ZMFGIGMOWUH00.0Chol HDL Ratio2.4 3.3 - 4.4 LOW RISK 4.4 - 7.1 AVERAGE RISK 7.1 - 11.0 MODERATE RISK >11.0 HIGH RISK Performing Lab:see noteML - [facility] LBPROF 14(COMP METB) Reviewed date:02/10/2025 07:37:38 PM Interpretation: Performing Lab: Notes/Report: [facility] ,Lcuoja922063-953 mmol/LPotassium4.63.5-5.1 mmol/VBwbekgmy00184-826 mmol/LCarbon Gxewpjx58.921.0-32.0 mmol/LAnion Gap12.5Vtbsxzb39890-332 mg/dLBlood Urea Hnehzwxu30.07.0-18.0 mg/dLCreatinine1.810.70-1.30 mg/dLEstimated GFR ( Swuqomj67>=60 mL/min/1.73m 2Estimated GFR (Non- Ame37>=60 mL/min/1.73m 2 BUN Creatinine Ratio16.6Efvkrwt9.08.5-10.1 mg/dLBilirubin Total0.50.2-1.0 mg/dL Aspartate Amino Poaswwdnpos9668-71 U/LAlanine Xbomwrasnwtustgx7464-72 U/L Alkaline Vyufnwofxrv64839-878 U/LTotal Protein7.66.4-8.2 g/dLAlbumin Level3.3 3.4-5.0 g/dLGlobulin4.3Albumin Globulin Ratio0.8Performing Lab:see noteML - [facility] LBCA echo doppler complete Reviewed date:11/14/2024 04:14:59 PM Interpretation: Performing Lab: Notes/Report: Source Facility: [facility]-[address] [place] [address] Cardiology Report Signed Patient: TELLO GARRISON MR#: [id number] : 1950 Acct:[id number] Age/Sex: 74 / M ADM Date: 11/12/24 Loc: NM Attending Dr: GAVINO HUNTER APRN Ordering Physician: GAVINO HUNTER APRN Date of Service: 11/12/24 Procedure(s): CA echo doppler complete Accession Number(s): [id number] cc: Herman Harrison M.D.; GAVINO HUNTER APRN Patient Name: TELLO GARRISON MR#: [id number] : 1950 Exam Date: 11/12/2024 Ordering Doctor: GAVINO HUNTER CNP ECHOCARDIOGRAM REPORT PROCEDURE: CA ECHO DOPPLER COMPLETE INDICATIONS: Atrial fibrillation, chest pain, hypertension, diabetes COMPARISON: None. DESCRIPTION: COMPLETE ECHOCARDIOGRAM Real-time transthoracic echocardiography with 2D, M-mode, spectral and color flow Doppler performed. QUALITY: Technical quality was good. LEFT VENTRICLE: Normal chamber size. Normal left ventricular wall thickness. Systolic function is at the lower limits of normal. LV EF: Lower limits of normal left ventricular ejection fraction, (50-55%). DIASTOLIC: Not adequately assessed due to heart rhythm. ATRIAL SEPTUM: LEFT ATRIUM: Severe dilatation. RIGHT ATRIUM: Moderate dilatation. RIGHT VENTRICLE: Moderate dilatation. Borderline systolic function. TRICUSPID VALVE: Normal mobility and thickness. No stenosis with mild regurgitation. Doppler studies reveal moderately elevated right sided pressures. RVSP 45 mmHg MITRAL VALVE: Normal mobility and thickness. There is no mitral annular calcification. Mild mitral regurgitation. AORTIC VALVE: Normal trileaflet appearance. Normal leaflet mobility. No evidence of aortic valve stenosis. Leaflet calcifications noted. AORTIC ROOT: Normal diameter and appearance, measuring 3.7 cm. Ascending aorta is mildly dilated (3.7 cm). PULMONIC VALVE: Normal thickness and mobility. No stenosis. Trivial regurgitation. PERICARDIUM: No evidence of pericardial effusion. IVC: IVC is normal in size, does not fully collapse. PLEURA: CONCLUSION: 1. The left ventricle is normal in size and exhibits low normal systolic function. Estimated LVEF is 50 to 55%. 2. Moderately dilated right ventricle with borderline systolic function. 3. Moderate to severe biatrial dilatation. 4. Mild mitral and tricuspid regurgitation. 5. Moderately elevated right-sided pressures. RVSP is 45 mmHg. 6. No pericardial effusion. Adult Echocardiography Procedure Report Left Ventricle LVEDD (3.7 - 5.6 cm): 5.43 cm LVESD (2.2 - 4.0 cm): 4.43 cm LVIVS thickness (0.6 - 1.2 cm): 0.88 cm LVPW thickness (0.5 - 1.0 cm): 0.97 cm LVOT Max Gradient: 0.73 mm[Hg], 1.09 mm[Hg] LVOT Area (cm2): 0.47 m/s Peak Velocity (LVOT): 0.43 m/s, 0.52 m/s LVOT Diameter 2.67 cm Left Atrium LA Volume Index (2D A2C): 56.61 ml/m2 Left Atrium Systolic Dimension: 5.05 cm Mitral Valve Mitral Valve E-Wave Peak Velocity: 0.90 m/s Right Ventricle Aorta AO Root Diam: 3.71 cm Ascending Ao Diam: 3.68 cm Aortic Valve AoV Area (Peak Tawanda): 4.50 cm2, 4.31 cm2, 4.67 cm2 Peak Velocity(Antegrade Flow): 0.56 m/s, 0.62 m/s Peak Gradient(Antegrade Flow): 1.24 mm[Hg], 1.56 mm[Hg] Tricuspid Valve Peak Velocity (Regurgitant Flow): 2.94 m/s, 3.12 m/s Pulmonic Valve Peak Velocity: 0.73 m/s Peak Gradient: 3.33 mm[Hg], 1.89 mm[Hg], 1.35 mm[Hg] Right Atrium Right Atrium Systolic Pressure: 75.02 ml, 75.02 ml Dictated by: Ciro Tapia M.D. on 11/12/2024 at 17:42 Approved by: Ciro Tapia M.D. on 11/12/2024 at 17:48 Dictated By: CIRO TAPIA Signed By: 11/12/241748 DD/ 47 TD/TT: Cotton Seed Culler:VENU no perf SPECT rest str Reviewed date:11/16/2024 04:43:19 PM Interpretation: Performing Lab: Notes/Report: Source Facility: [place] [address] Nuclear Medicine Report Signed Patient: TELLO GARRISON MR#: [id number] : 1950 Acct:[id number] Age/Sex: 74 / M ADM Date: 11/12/24 Loc: VENU Attending Dr: GAVINO HUNTER APRN Ordering Physician: GAVINO HUNTER APRN Date of Service: 11/12/24 Procedure(s): VENU no perf SPECT rest str Accession Number(s): [id number] cc: Herman Harrison M.D.; GAVINO HUNTER APRN Patient Name: TELLO GARRISON MR#: [id number] : 1950 Exam Date: 11/12/2024 Ordering Doctor: GAVINO HUNTER [facility] REPORT PROCEDURE: NM NO PERF SPECT REST STR COMPARISON: None. INDICATIONS: CHEST PAIN TECHNIQUE: Exam Description: Stress/Rest one day protocol gated SPECT Rest Imagin.1 mCi Tc-99m Cardiolite IV on 11/12/2024 Stress Imaging 29.8 mCi Tc-99m Cardiolite IV on 11/12/2024 Exercise Protocol: 0.4 mg Lexiscan given IV Heart Rate (bpm): Rest: 79 Max: 111 PMHR: 75 Blood Pressure: Rest: 148/80 Max: 156/84 Symptoms: Rest and peak stress ECG findings were pending and the exercise portion of the study was pending per attending physician [facility] . For more details please see separate cardiac stress test report. FINDINGS: QUALITY OF STUDY: Good PERFUSION DEFECT: LOCATION: Inferoapical and anteroapical SIZE: Small SEVERITY: Mild TYPE: Reversible WALL MOTION: LV SIZE: 99 mL. TID / TCD: 0.9 LVEF: Calculated EF 63%. SUMMARY: Abnormal Myocardial perfusion imaging study CONCLUSION:. Abnormal Myocardial perfusion imaging study, inferoapical and anteroapical ischemia Normal LV EF 63% No TID, TID 0.9 EKG stress test is reported separately Dictated by: Pb Andrade MD on 11/15/2024 at 18:20 Approved by: Pb Andrade MD on 11/15/2024 at 18:26 Dictated By: Pb Andrade M.D. Signed By: 11/15/241826 DD/ 25 TD/TT: Cotton Seed Culler: Reason For Referral Reason Basal cell? Diagnosis 1 Nevus (D22.9) Referral Organization [facility] Referring Provider First Name Antoine Referring Provider Last Name Hunter Referring Provider Speciality Family Med daniellene Referred Provider Festus Angel Referred Provider Specialty General Surg yung Referral Priority Routine Medications Medication SIG (Take, Route, Frequency, Duration) Notes Start Date End Date Status Ferrous Sulfate 325 (65 Fe) MG 1 tablet Orally t wice daily; Duration: 30 days ActiveHumaLOG KwikPen 100 UNIT/ML10 U Subcutaneous each meal; Duration: 90 days ActiveAspirin 81 81 MG1 tablet Orally Once a dayActiveZoloft 100 MG1 tablet Orally Once a dayActiveEliquis 5 MG1 tablet Orally Twice a day; Duration: 90 daysActiveZyrTEC Allergy 10 MG1 tablet Orally Once a dayActiveTamsulosin HCl 0.4 mgTAKE 1 CAPSULE DAILYActiveAmiodarone HCl 200 MG1 tablet Orally Once a day; Duration: 34 daysActiveTriamcinolone Acetonide 0.1 %1 application Externally Two times a Week05/26/2024ctiveMetoprolol Tartrate 50 mg1 tablet Orally Twice a dayActiveSimvastatin 20 mgTAKE 1 TABLET DAILYActiveLantus 100 UNIT/ML60 units Subcutaneous once daily; Duration: 90 daysActiveLasix 20 MG1 tablet Orally Once a dayActiveJardiance 10 MG1 tablet Orally Once a day; Duration: 30 day(s) 08/26/2023ctive Immunizations Vaccine Route Administration Date Status Comme nts Flu, Fluad (1894-4624) (08302) 65 yrs+, single-dose syringe IM Intramuscular 06/26/2023 Administered Flu, Fluad (27161) 65 yrs and older, single-dose syringe (5090-8857)IM Xikzsvfeedigh28/09/2024dministeredFlu, Fluad (76811) 65 yrs and older, single- dose syringe (0282-3991)IM Qmubjgmeevwup87/09/2025dministered Social History Tobacco Use: Social History Observation Description Date Details (start date - stop date) Former Smoker 12/25/1964 - 09/18/1982 Tobacco Use/Smoking Question Answer Notes Patient is a former smoker When did you start smoking?12/25/1964When did you stop smoking?09/18/1982Alcohol Screen (Audit-C) Question Answer Notes Did you have a drink containing alcohol in the p ast year? No Ypahmx3ObsmawkmqvtistBhobytleOZZZD-H (Standard) Question Answer Notes Did you have a drink containing alcohol in the p ast year? No Tuhjbn8DlnzewladmnldqTtnhvuro Problems Problem Type SNOMED Code ICD Code Onset Dates Problem Status W/U Status Risk Notes Problem Essential hypertension (87148809 ) Essential (primary) hypertension (I10) ActiveconfirmedProblemIron deficiency (76950404)Iron deficiency (E61.1)Active confirmedProblemHyperkalemia (89885946)Hyperkalemia (E87.5)Activeconfirmed ProblemTobacco user (391344196)Nicotine dependence, unspecified, in remission (F17.201)ActiveconfirmedProblemRheumatic tricuspid insufficiency (27987514) Rheumatic tricuspid insufficiency (I07.1)ActiveconfirmedProblemChronic pulmonary embolism (741703142358441)Chronic pulmonary embolism (I27.82)Activeconfirmed ProblemMitral valve disorder (74686752)Nonrheumatic mitral (valve) insufficiency (I34.0)ActiveconfirmedProblemParoxysmal atrial fibrillation (542721808) Paroxysmal atrial fibrillation (I48.0)ActiveconfirmedProblemCardiomegaly (3748985)Cardiomegaly (I51.7)ActiveconfirmedProblemPain in limb (56611025)Pain in left hand (M79.642)ActiveconfirmedProblemNocturia (809265256)Nocturia (R35.1) ActiveconfirmedProblemAbnormal results of cardiovascular function studies (257284081)Abnormal result of cardiovascular function study, unspecified (R94.30)ActiveconfirmedProblemClosed fracture of coccyx (disorder) (688471122) Fracture of coccyx, initial encounter for closed fracture (S32.2XXA)Active confirmedProblemFatigue (62875073)Fatigue (R53.83)ActiveconfirmedProblem Hyperlipidemia (94442841)Hyperlipidemia (E78.5)ActiveconfirmedProblem Hypertension (03986117)Hypertension (I10)ActiveconfirmedProblemChronic obstructive pulmonary disease (01972428)Chronic obstructive pulmonary disease (COPD) (J44.9)ActiveconfirmedProblemCoronary artery disease (10301798)CAD (coronary artery disease) (I25.10)ActiveconfirmedProblemArthritis (3323562) Arthritis (M19.90)ActiveconfirmedProblemDepression (819374538)Depression (F32.9) ActiveconfirmedProblemDementia (80532630)Dementia (F03.90)ActiveconfirmedProblem Allergic rhinitis (94670838)Allergic rhinitis (J30.9)ActiveconfirmedProblem Impacted cerumen (89797576)Cerumen impaction (H61.20)ActiveconfirmedProblemAcute bronchitis (32004879)Acute bronchitis (J20.9)ActiveconfirmedProblemCellulitis (243243398)Cellulitis (L03.90)ActiveconfirmedProblemDiabetic renal disease (298091999)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)Activeconfirmed ProblemContact dermatitis (62865787)Contact dermatitis (L25.9)Activeconfirmed ProblemBenign prostatic hyperplasia (656769921)Benign prostatic hyperplasia (N40.0)ActiveconfirmedProblemOverweight (052718463)Over weight (E66.3)Active confirmedProblemGreenfield filter in place (Z95.828)ActiveconfirmedProblemRight upper quadrant pain (826321361)RUQ pain (R10.11)ActiveconfirmedProblemChronic congestive heart failure (09438623)Chronic CHF (I50.9)ActiveconfirmedProblem Concussion with loss of consciousness <= 30 min (S06.0X1A)ActiveconfirmedProblem Superficial thrombophlebitis (1137874)Superficial thrombophlebitis (I80.9)Active confirmedProblemPost-traumatic stress disorder (19590961)Post-traumatic stress disorder (F43.10)ActiveconfirmedProblemAcute deep venous thrombosis of right lower limb (385445068934024)Acute deep vein thrombosis (DVT) of right lower extremity, unspecified vein (I82.401)ActiveconfirmedProblemPeripheral vertigo (79068411)Vertigo, peripheral (H81.399)ActiveconfirmedProblem Hypercholesterolemia (46146417)Hypercholesterolemia (E78.00)Activeconfirmed ProblemDeep vein phlebitis and thrombophlebitis of lower extremity, unspecified laterality (I80.209)ActiveconfirmedProblemMultiple injuries (disorder) (312926174)Unspecified multiple injuries, initial encounter (T07.XXXA)Active confirmedProblemEdema (783653128)Edema of both lower extremities (R60.0)Active confirmedProblemChronic kidney disease stage 3 (disorder) (821256463)Chronic kidney disease, stage III (moderate) (N18.30)Activeconfirmed Vital Signs Blood pressure diastolic 64 mm Hg 05/26/2025 Dkuqvt22 in05/26/2025lood pressure doqqyucb987 mm Hg05/26/20259077Ygtxxf037.2 lbs 05/26/2025BMI34.85 kg/m205/26/2025 Encounters Encounter Location Date Provider Diagnosis [address] [address] 08/25/2024 Antoine Harrison Hypertension I10 ; I juni deficiency E61.1 ; Paroxysmal atrial fibrillation I48.0 ; Hyperlipidemia E78.5 and Nevus D22.[address] [address] 11/24/2024 Antoine Harrison Hypertension I10 ; Diabetes mellitus with diabetic nephropathy E11.21 ; Chronic obstructive pulmonary disease (COPD) J44.9 ; Hyperlipidemia E78.5 ; CAD (coronary artery disease) I25.10 and Depression F32.[address] [address] 02/23/2025 Antoine Almeiday Iron deficiency E61. 1 ; Paroxysmal atrial fibrillation I48.0 ; Hyperlipidemia E78.5 ; Hypertension I10 ; Benign prostatic hyperplasia N40.0 and Diabetes mellitus with diabetic nephropathy E11.[address] [address] 05/26/2025 Antoine Almeiday Contact dermatitis L 25.9 ; Hypertension I10 ; Paroxysmal atrial fibrillation I48.0 ; Diabetes mellitus with diabetic nephropathy E11.21 and Encounter for immunization Z23 [address] [address] 06/30/2024 Antoine Almeiday [facility] [place] [address] 07/27/2024oug HoyParoxysmal atrial fibrillation I48.0[facility] [place] [address]/08/2024[facility] [place] [address]/04/2025 Antoine [facility] [place] [address]/Doug HoyParoxysmal atrial fibrillation I48.0 Assessments Encounter Date Diagnosis (ICD Code) Assessment Notes Treatment Notes Treatment Clinical Notes Section Notes 08/25/2024 Hypertension (ICD-10 - I10) 08/25/2024Iron deficiency (ICD-10 - E61.1)11/24/2024Hypertension (ICD-10 - I10) 11/24/2024Diabetes mellitus with diabetic nephropathy (ICD-10 - E11.21)ding well 02/23/2025Iron deficiency (ICD-10 - E61.1)review labs02/23/2025Paroxysmal atrial fibrillation (ICD-10 - I48.0)no rapid heart qtqghy4105/26/2025ontact dermatitis (ICD-10 - L25.9)trial gpjjiovb42/09/2025Hypertension (ICD-10 - I10)great herer 07/27/2024aroxysmal atrial fibrillation (ICD-10 - I48.0)03/07/2025Paroxysmal atrial fibrillation (ICD-10 - I48.0)05/26/2025Paroxysmal atrial fibrillation (ICD-10 - I48.0)well rate awflxiryhk09/09/2025Hyperlipidemia (ICD-10 - E78.5)on meds - mklwpp2711/24/2024hronic obstructive pulmonary disease (COPD) (ICD-10 - J44.9)stabel;08/25/2024Paroxysmal atrial fibrillation (ICD-10 - I48.0)08/25/2024 Hyperlipidemia (ICD-10 - E78.5)11/24/2024Hyperlipidemia (ICD-10 - E78.5)on meds 02/23/2025Hypertension (ICD-10 - I10)stabel on meds1Diabetes mellitus with diabetic nephropathy (ICD-10 - E11.21)good /09/2025Encounter for immunization (ICD-10 - Z23)02/23/2025enign prostatic hyperplasia (ICD-10 - N40.0)cont wht meds - up once a night5CAD (coronary artery disease) (ICD-10 - I25.10)08/25/2024Nevus (ICD-10 - D22.9)11/24/2024Depression (ICD-10 - F32.9)02/23/2025Diabetes mellitus with diabetic nephropathy (ICD-10 - E11.21) great control - discussed diet and exercis Plan Of Treatment Pending Test Test Name Order Date PSA, PROSTATE-SPECIFIC ANTIGEN FECAL OCCULT BLOOD 05/12/2024 Stool Occult Blood (iFOB) 10/07/2023 PSA, TOTAL 02/24/2024 CBC AUTO DIFF 02/24/2024 CBC AUTO DIFF 10/07/2023 LIPID PROFILE 02/24/2024 PROF 14(COMP METB) 02/24/2024 THYROID PROFILE WITH TSH 02/24/2024 THYROID PROFILE WITH TSH 10/07/2023 Next Appt Details Provider Name:Antoine Harrison, 01:00:00 PM, [address] [place], [address], Insurance Providers Payer Name Payer Address Payer Phone Subscriber Number Group Number Insured Name Patient Relationship to Insured Coverage Start Date Coverage End Date [employer] [address] [address] [place] [address] [id number] Cheryl Garrison - patient is the insured Medications Administered Medication Instructions Date of Administration Dosage Notes Triamcinolone 40 mg/ml mg Medical (General) History Medical History History ICD Code Over weight E66.3 Hypercholesterolemia E78.00 Iron deficiency E61.1 Fracture of coccyx, initial encounter fo r closed fracture S32.2XXA Concussion with loss of consciousness < = 30 min S06.0X1A Acute bronchitis J20.9 Fatigue R53.83 Pain in left hand M79.642 Unspecified multiple injuries, initial e ncounter T07.XXXA Post-traumatic stress disorder F43.10 Nocturia R35.1 Depression F32.9 CAD (coronary artery disease) I25.10 Arthritis M19.90 Chronic obstructive pulmonary disease (C OPD) J44.9 Cerumen impaction H61.20 Edema of both lower extremities R60.0 Superficial thrombophlebitis I80.9 Acute deep vein thrombosis (DVT) of righ t lower extremity, unspecified vein I82.401 Hyperkalemia E87.5 RUQ pain R10.11 Diabetes mellitus with diabetic nephropa thy E11.21 Chronic kidney disease, stage III (moder ate) N18.30 Chronic CHF I50.9 Benign prostatic hyperplasia N40.0 Deep vein phlebitis and thro mbophlebitis of lower extremity, unspecified laterality I80.209 Nicotine dependence, unspecified, in rem ission F17.201 Chronic pulmonary embolism I27.[address] [address] Z95.828 Allergic rhinitis J30.9 Vertigo, peripheral H81.399 Paroxysmal atrial fibrillation I48.0 Hypertension I10 Hyperlipidemia E78.5 Surgical History Surgery Date(Month/Year) cholectomy 02/2018 Loop Recorder- Dr. Saenz 08/06/2023 cardioversion 10/07/2023 pulmonary vein isolation and comprehensi ve EP study 5- 24 Biopsy Lesion- Forearm 2024 Excisional Biopsy- Dr Angel 09/29/2024 Heart Cath Hospitalization History Reason Date(Month/Year) fell 06/2022
--- OUTSIDE RECORDS SUMMARY | 2025-06-15 11:30 | XMS_ITS | Encounter Summary ---
Author Organization [facility] Address [address] [place] [address] Care Team Providers Care Hotel Clerk Name Role Phone Herman Harrison MD Primary Care Provider [phone] Encounter Details DateTypeDepartmentCare Team (Latest Contact Info)Yflxobadaiw65/27/2025Travel Social History Tobacco UseTypesPacks/DayYears UsedDateSmoking Tobacco: VcxivrRphkfzojyn4610 - 1982Smokeless Tobacco: NeverAlcohol UseStandard Drinks/WeekCommentsNot Currently 0 (1 standard drink = 0.6 oz pure alcohol)IA Safety & EnvironmentAnswerDate RecordedFear of Current or Ex-PartnerNot on file10/09/2023Emotionally AbusedNot on file10/09/2023hysically AbusedNot on file10/09/2023Sexually AbusedNot on file10/09/2023hysically or Sexually AbusedNot on file10/09/2023Sex and Gender InformationValueDate RecordedSex Assigned at QzgopXsru59/29/2025 7:51 AM EDT Legal NlpCvqj8602/13/2022 11:58 PM EDTGender TwnhzggeIrtb78/29/2025 7:51 AM EDT Sexual OrientationDon't know03/15/2025 7:51 AM EDTdocumented as of this encounter Plan of Treatment DateTypeDepartmentCare Team (Latest Contact Info)Gsczltkgmwe98/03/2025 11:30 AM ESTHospital Encounter [facility] [address] [place] [address] Wesley Saenz MD [address] [place] [address] Paroxysmal atrial fibrillation (CMS/HCC)06/20/2025 11:30 AM EST - 06/20/2025 12:30 PM ESTSurgery [facility] Heart [facility] [place] [facility] [address] [place] [address] Wesley Saenz MD [address] [place] [address] Egunrpeleggqm55/05/2025Hospital Encounter [facility] [place] [facility] [address] [place] [address] Wesley Saenz MD [address] [facility] [place] [address] NamePriorityAssociated DiagnosesDate/TimeAtrial Fib Ablation w/ PVI Paroxysmal atrial fibrillation (CMS/HCC) documented as of this encounter Visit Diagnoses Not on filedocumented in this encounter Care Teams Team MemberRelationshipSpecialtyStart DateEnd Date Herman Harrison MD [address] [facility] [address] [address] PCP - Fxptyom23/12/22documented as of this encounter
--- OUTSIDE RECORDS SUMMARY | 2025-06-15 11:30 | XMS_ITS | Clinical Summary ---
Author Organization [employer] [facility] tem Address [id number] [address] 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 Name Role Phone Mane Robles DO Primary Care Provider Yanet plummer Allergies Active AllergyReactionsCriticalityNoted DateCommentsOxycodone-Acetaminophen Nxutskoyozcmir03/13/2018 Medications MedicationSigDispense QuantityRefillsLast FilledStart DateEnd DateStatus FREESTYLE LITE STRIPS strip Active DIGITEK 125 mcg tablet Active famotidine (PEPCID) 40 mg tablet Take 40 mg by mouth 2 (two) times a day.Active lisinopril (PRINIVIL,ZESTRIL) 2.5 mg tablet Active metFORMIN (GLUCOPHAGE) 1000 mg tablet Take 1,000 mg by mouth 2 (two) times a day.Active metoprolol tartrate (LOPRESSOR) 50 mg tablet Active Social History Tobacco UseTypesPacks/DayYears UsedDateSmoking Tobacco: Never AssessedChildcare AnswerDate FbsxmbktNquditbnwXzmnroc06/12/2019EmploymentAnswerDate Recorded ScupdfzswdXraimbx47/12/2019Purpose - LifeAnswerDate RecordedPurpose and direction in ncxlGrnilon61/11/2021Sex and Gender InformationValueDate Recorded Sex Assigned at BirthNot on fileLegal DfwSeny5103/23/2015 12:13 PM EDTGender IdentityNot on fileSexual OrientationNot on file Last Filed Vital Signs Vital SignReadingTime TakenCommentsBlood Jpkqkmql025/8202/27/2018 10:04 AM EDT Pulse--Temperature--Respiratory Rate--Oxygen Saturation--Inhaled Oxygen Concentration--Ncqsdu798.6 kg (224 lb)02/27/2018 10:04 AM HMQHktnyk872.7 cm (5' 8 )02/27/2018 10:04 AM EDTBody Mass Index34.0602/27/2018 10:04 AM EDT Plan of Treatment Health MaintenanceDue DateLast DoneCommentsDepression Saapyaxst22/12/1963Tobacco Dhjksgbdc87/12/1963Adult BMI Dieobewtz35/12/1969DTaP,Tdap and Td Vaccines (1 - Tdap)1970Zoster (Shingles) Vaccine (1 of 2)2001Fall Risk Screening 2016Influenza Yoxrhsd5004/18/2025 Medical Devices Not on file Insurance Care Teams Team MemberRelationshipSpecialtyStart DateEnd Date Mane Robles DO PCP - [facility]02/20/18
--- OUTSIDE RECORDS SUMMARY | 2025-06-15 11:30 | XMS_ITS | Clinical Summary ---
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 Name Role Phone Herman Harrison MD Primary Care Provider [phone] Allergies Active AllergyReactionsCriticalityNoted DateCommentsOxycodone-Acetaminophen GwuonvoheiuzhbLjjfpa59/12/9711VipasberuuixDuf71/25/2022 Medications MedicationSigDispense QuantityRefillsLast FilledStart DateEnd DateStatus tamsulosin (Flomax) 0.4 mg 24 hr capsule Take 0.4 mg by mouth.12/14/2019Active HumaLOG KwikPen Insulin 100 unit/mL injection 10 Units in the morning.09/11/2021ctive simvastatin (Zocor) 20 mg tablet Take 20 mg by mouth at bedtime.07/14/2022ctive insulin glargine (Lantus) 100 unit/mL (3 mL) pen Inject 40 Units under the skin in the morning.12/14/2019Active nitroglycerin (Nitrostat) 0.[address] 0.4 mg under the tongue every 5 (five) minutes if needed for chest pain. Active sertraline (Zoloft) 100 mg tablet Take 100 mg by mouth in the morning.Active Eliquis 5 mg tablet Take 5 mg by mouth in the morning and at bedtime.10/30/2022ctive cetirizine (ZyrTEC) 10 mg tablet Take 10 mg by mouth.12/06/2021ctive metoprolol tartrate (Lopressor) 25 mg tablet Indications:Stage 3a chronic kidney disease (CMS/HCC)Take 0.5 tablets (12.5 mg) by mouth in the morning and at bedtime. 90 tablet ctive ferrous sulfate 325 (65 Fe) MG tablet Take 325 mg by mouth with breakfast.05/13/2024ctive aspirin 81 mg chewable tablet Indications:Coronary artery disease involving [place] coronary artery of [place] heart without angina pectorisChew 1 tablet (81 mg) in the morning. 90 tablet ctive furosemide (Lasix) 20 mg tablet Indications:Edema, unspecified typeTake 1 tablet (20 mg) by mouth in the morning. 90 tablet ctive Active Problems ProblemNoted DateDiagnosed PfldTtmzlivzyswm68/23/2025ardiovascular stress test emrxntcm19/02/2025Other chest pain11/17/20244068Cugedpy76/05/2025Neoplasm of uncertain behavior of skin of cyapdgb1910/20/2024Obesity due to excess calories 10/20/20241678Rorwppnf11/13/2024S/P ablation of atrial beonlsopeiih28/31/2024 Assessment & Plan (01/16/2024 11:59 AM EDT): Remains in sinus bradycardia with PACs today per ECG - HR 57 bpm Continue amiodarone and metoprolol, eliquis for anticoagulation Abnormal result of cardiovascular function study, gtetmzptjjf78/16/2024 12/02/2023Nonrheumatic mitral (valve) kmliowjqkckqm07heumatic tricuspid mhzjytjmfgemv90MI 35.0-35.9,adult10/07/2023 10/07/2023Elevated blood pressure cgshqmu34Feeling of incomplete bladder ttgstmya68ecurrent deep vein thrombosis (DVT) of both lower cgtzsvivyyy12Senile solar keratosis Suicidal citkqtdo23Syncope and collapse 06/24/2023 Assessment & Plan (01/16/2024 11:58 AM EDT): 1 episode of near syncope since the ablation, therefore amiodarone and metoprolol were decreased inhalf. Pt is hydrating adequately, denied fluid retention and noted weight loss since last clinic visit. RTC [address] Saenz Acute yiekrnmlgc14/16/2023cute embolism and thrombosis of unspecified deep veins of right lower qgazhfhrx72/16/2023llergic ubbrqfux00/16/2023rthritis 12/31/2022hronic congestive heart vvfcdnw5412/31/2022hronic pulmonary embolism 12/31/2022oncussion with loss of consciousness <= 30 min12/31/2022oronary artery qbgxbtc7812/31/2022eep vein phlebitis and thrombophlebitis of lower extremity, unspecified nmlpvppiwz28/16/9170Rpdmuky70/16/2023iabetic renal uzckmor3512/31/2022Fracture of coccyx, initial encounter for closed fracture 12/31/2022reenfield filter in place12/31/2022Impacted ulkwfxt2312/31/2022Iron /16/2023Multiple ffawkjwz61/16/2023Major depressive disorder, single episode, entnhxeqgeu71/16/7618Ordpgqmikb77/16/2023ain in limb12/31/2022 Peripheral jiczhyz4512/31/2022Right upper quadrant pain12/31/2022Superficial ajhwqkomoefgutqf77/16/2023Tobacco user12/31/2022enign prostatic hyperplasia 12/31/20228795Lgfuo91/16/0312Cckgefwuvtfzzrarmquf46/16/2023hronic kidney disease, stage III (moderate)12/31/2022ost-traumatic stress ljisojcx36/16/2023trial jbwfpugomavh86/12/2022 Assessment & Plan (01/16/2024 12:03 PM EDT): Ecg today Sinus bradycardia with PACs HR 57 bpm In light of bradycardia and labile b/p with voiced fatigue, lightheadedness and near syncope about 2 weeks post ablation- I instructed pt to decrease amiodarone to 100 mg daily and metoprolol decrease to 12.5 mg bid- scripts sent and pt and brother voiced understanding to call office or any concerns, syncope, worsening symptoms. RTC 3months Benign prostatic hyperplasia with urinary ltmykycqpzs09/12/2022hronic obstructive pulmonary wovhurs32/12/2022Dependent edema12/12/2022Depressive ajhkthsr39/12/2022Diabetes mellitus, type Family history of malignant neoplasm of bqewwyeo13/12/2022History of vthodhbd92/12/2022History of myocardial aibkttohpb29/12/1528Hqgfcgxcyrdh75/12/6157Hrpzgamakefkln79/12/2022Hypertension 07/29/2022Injury of head07/29/2022Long term current use of anticoagulant therapy 07/29/2022Microscopic pbpetvjgj29/12/9357Zmiqaciv67/12/2022osttraumatic stress quupofmk84/12/2022tage 3 chronic kidney hgpaall6207/29/2022 Resolved Problems ProblemNoted DateDiagnosed DateResolved DateParoxysmal atrial fibrillation / Encounters DateTypeDepartmentCare QfzsQzvhzmyulpd62/27/3416Gcvdye48/27/2025Orders Only [facility] [address] [place] [phone] Amie Bowman RN Atrial fibrillation (CMS/HCC) (Primary Dx)06/07/2025Orders Only [facility] [address] [place] [address] Idalia Webber MA Paroxysmal atrial fibrillation (CMS/HCC) (Primary Dx)05/19/2025Orders Only [facility] [address] [place] [facility] [place] [address] Tova Dumont MA Paroxysmal atrial fibrillation (CMS/HCC) (Primary Dx)05/11/2025Orders Only [facility] [address] [place] [address] Provider, MD Asha 05/10/2025 1:15 PM EDTOffice Visit [facility] [address] [place] [facility] [place] [address] Wesley Saenz MD Persistent atrial fibrillation (CMS/HCC) (Primary Dx)05/10/2025Orders Only [facility] [address] [place] [facility] [place] [address] Tova Dumont MA Paroxysmal atrial fibrillation (CMS/HCC) (Primary Dx)05/10/2025Telephone [facility] [address] [place] [facility] [place] [address] Tova Dumont MA 04/19/2025 2:00 PM EDTAncillary Procedure [facility] [address] [place] [phone] Awareness of gbidjzbtbi70/02/2025Orders Only [facility] [address] [place] [phone] Ira Cheng MD 03/21/2025 8:00 AM EDTAncillary Procedure [facility] [address] [place] [phone] Awareness of uoypxcgcbk62/02/2025Orders Only [facility] [address] [place] [address] Ira Cheng MD from Last 3 Months Family History Medical HistoryRelationNameCommentsCoronary artery diseaseFatherHeart attack FatherCoronary artery diseaseMotherRelationNameStatusCommentsFatherDeceased MotherDeceased Social History Tobacco UseTypesPacks/DayYears UsedDateSmoking Tobacco: WhtqvwJnivtgtfou7769 - 1982Smokeless Tobacco: Never Tobacco Cessation:Counseling Given: Not Answered Alcohol UseStandard Drinks/WeekCommentsNot Currently0 (1 standard drink = 0.6 oz pure alcohol)UT Safety & EnvironmentAnswerDate RecordedFear of Current or Ex-PartnerNot on file10/09/2023Emotionally AbusedNot on file10/09/2023hysically AbusedNot on file10/09/2023Sexually AbusedNot on file10/09/2023hysically or Sexually AbusedNot on file10/09/2023Sex and Gender InformationValueDate Recorded Sex Assigned at HtrfhKsnx09/29/2025 7:51 AM EDTLegal YpmMrdf5102/13/2022 11:58 PM EDTGender VxufuwtiJyle27/29/2025 7:51 AM EDTSexual OrientationDon't know 03/15/2025 7:51 AM EDT Last Filed Vital Signs Vital SignReadingTime TakenCommentsBlood Eaaruxbq67/7109 1:26 PM EDT Fxvxu820405/10/2025 1:26 PM KMLRmpyvbpqfce67.1 ??C (97 ??F)12/17/2023 4:25 PM EDT Respiratory Sdlt413512/23/2024 5:30 PM EDTOxygen Vzkqynyoaj15%05/10/2025 1:26 PM EDTInhaled Oxygen Concentration--Asocha486 kg (230 lb)05/10/2025 1:26 PM EDT Lfkjbi806.7 cm (5' 8 )05/10/2025 1:26 PM EDTBody Mass Index34.9705/10/2025 1:26 PM EDT Plan of Treatment DateTypeDepartmentCare Team (Latest Contact Info)Tacvsxpcuje32/03/[address]25 [address] [facility] [address] [place] [phone] Wesley Saenz MD [address] [place] [phone] Paroxysmal atrial fibrillation (CMS/HCC)06/20/2025 11:30 AM EST - 06/20/2025 12:[address] [facility] [address] [place] [phone] Wesley Saenz MD [address] [place] [phone] Ynmjhhpapucpw83/05/2025Hospital Encounter [facility] [address] [place] [phone] Wesley Saenz MD [address] [place] [address] NamePriorityAssociated DiagnosesDate/TimeAtrial Fib Ablation w/ PVI Paroxysmal atrial fibrillation (CMS/HCC) Health MaintenanceDue DateLast DoneCommentsCT Uuiclcmltubb1951Colonoscopy 1Colorectal Cancer Lxjileuzr1951iabetes: Hemoglobin A1C 1951FIT-DNA1951FIT1951FOBT1950 8179Zhdgmzcmffzkf1951 Diabetes: Retinopathy Dojyueakv55/12/1961Depression Crpmvnprq07/12/1963Adult Akdgjny2704/29/1973Zoster Vaccines (1 of 2)2001Fall Risk Ajerbpegy17/12/2016 COVID-19 Vaccine ( season)511/, 11/14/2020, 10/16/2020Influenza Vaccine (#1)/04/2024, 06/26/2023, 06/11/2022, Additional history existsPneumococcal Vaccine: 50+ OpvgxEqcijcbdb90/05/2019, 07/07/2017HIB VaccinesAged OutNo longer eligible based on patient's age to complete this topicHPV VaccinesAged OutNo longer eligible based on patient's age to complete this topicIPV VaccinesAged OutNo longer eligible based on patient's age to complete this topicMeningococcal B VaccineAged OutNo longer eligible based on patient's age to complete this topicMeningococcal VaccineAged OutNo longer eligible based on patient's age to complete this topicRotavirus Vaccines Aged OutNo longer eligible based on patient's age to complete this topic Medical Devices ImplantedTypeAreaManufacturerDevice IdentifierShelf Expiration DateModel / Serial / LotMonitor,Cardiac,Lux,Dxii+[facility] - [id number] - [id number] Implanted:Qty: 1 on 08/06/2023 by Wesley Saenz [facility]Implant[facility] Loop RecorderBoston Awxcwlzfve95/[id number] / [id number] / Procedures Procedure NamePriorityDate/TimeAssociated DiagnosisCommentsECG 12-LEADRoutine 06/08/2025 1:27 PM EDT Paroxysmal atrial fibrillation (CMS/HCC) ECG 12-YCGEIlxohka94/23/2025 10:54 AM EDTCARDIAC DEVICE CHECK CHECK - REMOTE Hslqxja7504/21/2025 1:31 PM EDT Awareness of heartbeats CARDIAC DEVICE CHECK - REMOTE - LOOP RECORDER (ILR)Swenwrn4104/19/2025 12:00 AM EDTCARDIAC DEVICE CHECK CHECK - HCWPJHQmtuotg46/11/2025 2:57 PM EDT Awareness of heartbeats CARDIAC DEVICE CHECK CHECK - LMHZYJLmtzsnd16/05/2025 8:01 AM EDT Awareness of heartbeats CARDIAC DEVICE CHECK - REMOTE - LOOP RECORDER (ILR)Stckivk6403/19/2025 12:00 AM EDTCARDIAC DEVICE CHECK CHECK - MKAOWPDlgpjqm46/01/2025 6:20 PM EDT Awareness of heartbeats from Last 3 Months Results * ECG 12 lead (06/08/2025 1:27 PM EDT) Only the most recent of2 resultswithin the time period is included. Narrative Authorizing ProviderResult TypeResult StatusWesley GUTHRIE ORDERABLESFinal Result * CARDIAC DEVICE CHECK - REMOTE - LOOP RECORDER (ILR) (04/21/2025 1:31 PM EDT) Only the most recent of4 resultswithin the time period is included. Specimen (Source)Anatomical Location / LateralityCollection Method / Volume Collection TimeReceived Time Narrative Authorizing ProviderResult TypeResult StatusBlair Dempsey [facility] IMPLANTABLE CARDIAC DEVICE PROCEDURESFinal ResultPerforming OrganizationAddressCity/State/ZIP Code Phone Number CPACS * Cardiac device check - Remote loop recorder (ILR) (04/19/2025 12:00 AM EDT) Only the most recent of2 resultswithin the time period is included. Anatomical RegionLateralityModalityOtherSpecimen (Source)Anatomical Location / LateralityCollection Method / VolumeCollection TimeReceived Time04/19/2025 Narrative Authorizing ProviderResult TypeResult StatusIra Cheng [facility] [place] IMPLANTABLE CARDIAC DEVICE PROCEDURESFinal Result from Last 3 Months Insurance Advance Directives * Full Code (Latest Code Status on File) Date ActivatedDate InactivatedComments12/23/2024 3:29 PM12/23/2024 8:12 PM * Full Code Date ActivatedDate InactivatedComments12/17/2023 12:48 PM12/22/2023 2:37 PM Care Teams Team MemberRelationshipSpecialtyStart DateEnd Date Herman Harrison MD [address] [facility] [place] [address] PCP - [place]27/12/22
--- OUTSIDE RECORDS SUMMARY | 2025-06-15 11:45 | XMS_ITS | CCD ---
[facility] Providers Care Logistics Specialist Name Role Phone PHYSICIAN, DEFAULT Unavailable Unavailable PHYSICIAN, DEFAULT Unavailable Unavailable Jonnathan Amaya Attending Unavailable Iker Corrigan Primary Care Unavailable Iker Corrigan Unavailable Unavailable Unavailable Iker Corrigan Primary Care Physician SHKEHAR ., DR DONG Primary Care Unavailable HOY [...] Unavailable GAVINO DE LA FUENTE Attending Unavailable ELSA, GAVINO Consulting Unavailable HOY ., DR DONG Primary [...] Unavailable GAVINO DE LA FUENTE Consulting Unavailable ELSA, GAVINO Admitting Unavailable GAVINO DE [...] Unavailable GRECHNY ., SAYRA CALVO Consulting Unavailrhona e HOY ., DR DONG Admgil Unavailable HOY ., DR DONG Primary Care Unavailable HOY ., DR DONG Attending Unavailable HOY ., DR DONG Consulting Unavailable GONCALVES ., DR RONIT West Consulting Unavailable RADHA RODRIGUEZ Consulting Unavailable MARI SO Consulting Unavailable ELSAGAVINO Consulting Unavailable FERNANDO GONZÁLES Consulting Unavailable AMEYA TANNER Consulting Unavailable HOY ., DR DONG Admgil Unavailable [...] Unavailable SHAIKH Ankit REYNOLDS Admitting Unavailable Iker Corrigan MD Primary Care Provider [id number] Willie Vargas MD Attending Provider Nick Sin MD Attending Provider [phone] Nick Sin MD Attending Provider [phone] Nick SIN Attending Unavailable NILL, Nick Wyatt Attending Unavailable NILL, Nick Wyatt Attending Unavailable Nill, Nick Wyatt Admitting Unavailable Nill, Nick Wyatt Attending Unavailable Iker Corrigan Primary Care Unavailable Willie Vargas Admitting Unavailab le AliciaWillie sarmiento Attending Unavailab le KAYLEN, GRETCHEN Referring Unavailable KAYLEN, GRETCHEN Referring Unavailable KAYLEN, GRETCHEN Referring Unavailable JACQUE, RAND Referring Unavailable JACQUE, RAND Referring Unavailable JACQUE, RAND Referring Unavailable JACQUE, RAND Referring Unavailable JACQUE, RAND Referring Unavailable ELSA, GAVINO Attending Unavailable JACQUE, RAND Attending Unavailable MOUKARBEL, CIRO Referring Unavailable ELSA, GAVINO Attending Unavailable JACQUE, RAND Referring Unavailable JACQUE, RAND Referring Unavailable JACQUE, RAND Referring Unavailable KAYLEN, GRETCHEN Referring Unavailable MOUKARBEL, CIRO Admitting Unavailable MOUKARBEL, CIRO Attending Unavailable Unavailable Unavailable Unavailable Allergies Allergy ClassificationReported Allergen(s)Allergy TypeDate of OnsetReaction(s) Facility (6 sources)Azithromycin; Translations: [Zithromax TABS]Drug AllergyLip swelling (finding)[address] Work Phone: (5 sources)Acetaminophen / oxyCODONE; Translations: [acetaminophen-oxycodone] Drug Rwhwpnl39-22-2780Eoezvwgmnfiyrh (finding)[facility] [place] (2 sources)Azithromycin; Translations: [Zithromax]Drug Keskqzr43-35-8623Ipd [facility] Repository (3 sources)Azithromycin; Translations: [azithromycin]Drug Hefwdvf56-95-2985 [facility] ([facility])Acetaminophen / oxyCODONE; Translations: [OXYCODONE-ACETAMINOPHEN]Drug Asckwry42-58-3574[facility] Medications Current Medications MedicationDrug Class(es)DatesSig (Normalized)Sig (Original)apixaban 5 mg oral tablet (2 sources)Factor Xa InhibitorStart: 03-45-3027rflh 1 tablet by mouth twice dailyEliquis 5 mg oral tablet 5 mg = 1 tab(s), Oral, BID, Refills(s) 0 Start Date: 08/27/24 Status: Orderedcetirizine hydrochloride 10 mg oral tablet (2 sources)Histamine-1 Receptor AntagonistStart: 37-51-8015earu 1 tablet by mouth once dailycetirizine 10 mg Tab 10 mg = 1 tab(s), Oral, Daily, Refills(s) 0 Start Date: 12/06/21 Status: Orderedcyclobenzaprine hydrochloride 10 mg oral tablet (2 sources)Muscle RelaxantStart: 39-40-1292prrf 1 tablet by mouth three times daily as needed for muscle spasmscyclobenzaprine 10 mg Tab 10 mg = 1 tab(s), Oral, TID, PRN for spasm Start Date: 12/06/21 Status: Ordereddigoxin 0.125 mg oral tablet (8 sources)Cardiac GlycosideStart: 44-37-1115iapo 1 tablet by mouth once daily digoxin 125 mcg (0.125 mg) Tab mcg tab(s), Oral, Daily, Refills(s) 0 Start Date: 01/19/21 Status: OrderedStart: 40-77-1190uhgm 0.125 mg by mouth once dailyDigoxin 125 mcg Tablet Active 0.125 MG PO Daily October 14, 2018 12:00amStart: 65-02-9115ttqi 1 tablet by mouth once dailydigoxin 125 mcg (0.125 mg) Tab mcg tab(s), Oral, Daily, Refills(s) 0 Start Date: 01/19/21 Status: Orderedtake 1 tablet by mouth once dailyDigoxin 125 MCG Oral Tablet TAKE 1 TABLET DAILY. Quantity: 90 Refills: 3 Ordered: 04-Sep-2021 DO Activeferrous sulfate 325 mg oral tablet (2 sources)Start: 67-82-4902jmmr 1 tablet by mouth twice dailyferrous sulfate 325 mg Tab 325 mg = 1 tab(s), Oral, BID, Refills(s) 0 Start Date: 08/27/24 Status: Orderedfurosemide 20 mg oral tablet (2 sources)Loop DiureticStart: 49-72-0645awna 1 tablet by mouth once dailyLasix 20 mg Tab 20 mg = 1 tab(s), Oral, Daily, Refills(s) 0 Start Date: 08/27/24 Status: OrderedHumalog KwikPen (4 sources)Start: 11-12-0889Twhsueh KwikPen 10 unit(s), SubCutaneous, TIDAC, Refills(s) 0 Start Date: 12/06/21 Status: OrderedStart: 96-15-4687Wdbmhlp KwikPen 15 unit(s), SubCutaneous, Refills(s) 0 Start Date: 12/06/21 Status: Ordered insulin glargine 100 unt/ml injectable solution (8 sources)Insulin AnalogStart: 96-37-0381Ywkwjgt Glargine (Lantus U-100 Insulin) 100 unit/mL solution Active 0 .ROUTE .COMPLEX May 11:00pm 40-60 at night depending on blood sugarStart: 10-55-1457yrqpvm 40 [IU] by subcutaneous injection once daily at bedtimeLantus 40 unit(s), SubCutaneous, Once a day (at bedtime) Start Date: 12/14/19 Status: OrderedStart: 12-14-2019 inject 60 [IU] by subcutaneous injection once daily at bedtimeLantus 60 unit(s), SubCutaneous, Once a day (at bedtime) Start Date: 12/14/19 Status: OrderedLantus 100 UNIT/ML Subcutaneous Solution USE DIRECTED. Quantity: 0 Refills: 0 Ordered: 04-Sep-2021 DO Active3 ml insulin lispro 100 unt/ml pen injector (5 sources)Insulin AnalogStart: 14-15-7328grwrpa 25 [IU] by subcutaneous injection twice dailyInsulin Lispro Active 25 UNIT Subcutaneous Twice daily October 14, 2018 1:48pmStart: 16-92-9402Cntelqt Lispro (Humalog Kwikpen Insulin) 100 unit/mL Insulin Pen Active 0 .ROUTE .COMPLEX October 14, 2018 12:00am 10-15 with meals depending on blood sugarlisinopril 2.5 mg oral tablet (9 sources)Angiotensin Converting Enzyme InhibitorStart: 96-65-7478gklu 1 tablet by mouth once dailylisinopril 2.5 mg Tab 2.5 mg = 1 tab(s), Oral, Daily, Refills(s) 0 Start Date: 12/06/21 Status: OrderedStart: 62-98-0901dxfy 2.5 mg by mouth once dailyLisinopril Active 2.5 MG Oral Daily October 14, 2018 1:48pm Start: 57-21-1978pgrg 4 tablets by mouth once dailyLisinopril 2.5 mg Tablet Active 10 MG PO Daily October 14, 2018 12:00amStart: 18-56-4121tkck 10 mg by mouth once dailyLisinopril Active 10 MG PO Daily October 14, 2018 1:00amtake 1 tablet by mouth once dailyLisinopril 10 MG Oral Tablet Take 1 tablet daily Quantity: 90 Refills: 3 Ordered: 05-Jun-2021 Chester Ahn DO ActivemetFORMIN hydrochloride 1000 mg oral tablet (8 sources)BiguanideStart: 49-10-4029wakh 1000 mg by mouth once dailyMetformin Active 1000 MG Oral Daily October 14, 2018 1:48pmStart: 92-86-6662xfyq 1 tablet by mouth twice dailyMetformin 1,000 mg Tablet Active 1000 MG PO Twice daily October 14, 2018 12:00amtake 1 tablet by mouth every twelve hours metFORMIN HCl - 1000 MG Oral Tablet TAKE 1 TABLET EVERY 12 HOURS. Quantity: 0 Refills: 0 Ordered: 04-Sep-2021 DO Activemetoprolol tartrate 50 mg oral tablet (10 sources)beta-Adrenergic BlockerStart: 79-28-8546Fztovbjule tartrate 50 mg Tab 25 mg = 0.5 tab(s), Oral, BID, Refills(s) 0 Start Date: 12/06/21 Status: OrderedStart: 92-11-1025jdob 1 tablet by mouth twice dailyMetoprolol Tartrate 50 mg Tablet Active 50 MG PO Twice daily October 14, 2018 12:00amtake 1 tablet by mouth once dailyMetoprolol Tartrate 50 MG Oral Tablet TAKE 1 TABLET EVERY 12 HOURS DAILY. Quantity: 180 Refills: 3 Ordered: 04-Sep-2021 DO Active nitroglycerin 0.4 mg sublingual tablet (5 sources)Nitrate VasodilatorStart: 66-39-1720Gfaveqnqybjbc (Nitrostat) 0.4 mg Tablet, Sublingual Active 0.4 MG SUBLINGUAL every 5 to 15 minutes as needed for Chest Pain October 14, 2018 12:00ampantoprazole 40 mg extended release oral tablet (8 sources)Proton Pump InhibitorStart: 37-31-9703hdab 40 mg by mouth once daily pantoprazole 40 mg, Oral, Daily Start Date: 12/14/19 Status: OrderedStart: 99-09-8277jiix 1 tablet by mouth once dailyPantoprazole (Protonix) 40 mg Tablet,Delayed Release (Dr/Ec) Active 40 MG PO Daily October 14, 2018 12:00am prazosin 2 mg oral capsule (3 sources)alpha-Adrenergic BlockerStart: 79-51-5314xjoi 1 capsule by mouth once daily at bedtimePrazosin 2 mg capsule Active 2 MG PO Daily at bedtime June 19, 2021 11:00pmsertraline 100 mg oral tablet (8 sources)Serotonin Reuptake InhibitorStart: 32-44-6457thqh 1 tablet by mouth once dailyZoloft 100 mg Tab 100 mg = 1 tab(s), Oral, Daily, as directed, Refills(s) 0 Start Date: 12/06/21 Status: Orderedsimvastatin 20 mg oral tablet (10 sources)HMG-CoA Reductase InhibitorStart: 58-22-8521uton 20 mg by mouth once daily at bedtimesimvastatin 20 mg, Oral, Once a day (at bedtime) Start Date: 12/14/19 Status: Orderedtamsulosin hydrochloride 0.4 mg oral capsule (5 sources)alpha-Adrenergic BlockerStart: 95-75-3362vvng 1 capsule by mouth once dailytamsulosin 0.4 mg Cap 0.4 mg = 1 cap(s), Oral, Daily Start Date: 12/14/19 Status: OrderedtraZODone hydrochloride 50 mg oral tablet (6 sources)Serotonin Reuptake InhibitorStart: 38-30-0772nkal 1 tablet by mouth once daily at bedtime as neededTrazodone 50 mg Tablet Active 50 MG PO Daily at bedtime as needed for Insomnia June 19, 2021 11:00pmWarfarin (8 sources)Vitamin K AntagonistStart: 40-41-1977djkxsvll See Instructions, 2 mg as directed Start Date: 12/14/19 Status: OrderedStart: 57-91-4734wvjk 1 tablet by mouth once dailyWarfarin 2 mg Tablet Active 2 MG PO Daily October 14, 2018 12:00amWarfarin Sodium 2 MG Oral Tablet as directed by [facility] Quantity: 0 Refills: 0 Ordered: 04-Sep-2021 DO Active Completed/Discontinued Medications MedicationDrug Class(es)DatesSig (Normalized)Sig (Original)cholecalciferol 0.05 mg oral tablet (1 source)Vitamin Dtake 1 tablet by mouth once dailyVitamin D3 50 MCG (1999) Oral Tablet Take 1 tablet daily Quantity: 0 Refills: 0 Ordered: 04-Sep-2021 DO Activeinsulin aspart, human 100 unt/ml injectable solution (1 source)Insulin AnalogNovoLOG 100 UNIT/ML Subcutaneous Solution INJECT SUBCUTANEOUSLY DIRECTED. Quantity: 0 Refills: 0Ordered: 04-Sep-2021 DO Active Problems Active Problems Problem ClassificationProblemDateDocumented DateEpisodic/ChronicAnxiety disorders (8 sources)Posttraumatic stress disorder; Translations: [Anxiety disorder, unspecified]Onset: 843765-30-4082LvvdoliGpnukwa dysrhythmias (9 sources)Chronic atrial fibrillation; Translations: [Atrial fibrillation] Onset: 135837-48-6837FrpsjqsMqmuztb dysrhythmias (3 sources)Bradycardia, unspecified; Translations: [Palpitations]Onset: 76-18-7912UcnuhefsTqkxutp kidney disease (4 sources)Chronic kidney disease stage 388-70-2792GkmchydRhfybuh obstructive pulmonary disease and bronchiectasis (9 sources)Chronic obstructive lung disease; Translations: [Chronic obstructive pulmonary disease, unspecified]Onset: 221572-27-2276NxwzmnnGoikssvtqr disorders (2 sources)Encounter for adjustment and management of other part of cardiac pacemaker; Translations: [Encounter for adjustment and management of other part of cardiac pacemaker]Onset: 25-75-6434MjossukRoogmykvtc heart failure; nonhypertensive (10 sources)Congestive heart failure; Translations: [Heart failure, unspecified] Onset: 057502-79-7088TwockxcVfylneqj atherosclerosis and other heart disease (11 sources)Coronary arteriosclerosis; Translations: [History of myocardial infarction]Onset: 575876-82-3550SuixnvoIvttlwug, dementia, and amnestic and other cognitive disorders (2 sources)Cdoqgvki48-70-4853TcnuyhxBsxoulqd mellitus with complications (4 sources)Type 2 diabetes mellitus with hypoglycemia without coma; Translations: [TYP 2 DM W/HYPOGLYCEMIA W/OCOMA]Onset: 55-05-4865RcszpyzFhodxboo mellitus without complication (9 sources)Diabetes mellitus; Translations: [Diabetes mellitus without mention of complication, type II or unspecified type, not stated as uncontrolled]Onset: 930341-57-4308QmxxbpvNoknstfm mellitus without complication (1 source)Other abnormal glucose; Translations: [OTHER ABNORMAL GLUCOSE]Onset: 39-11-7185IldtuhuzLaxmumnq of white blood cells (1 source)Elevated white blood cell count, unspecified; Translations: [ELEVATED WHITE BLOOD CELL COUNT UNS]Onset: 96-37-4950YjhpamtVubnqhpdt of lipid metabolism (11 sources)Hyperlipidemia; Translations: [Other and unspecified hyperlipidemia] Onset: 900696-14-3312RbbqlqxTqcladelrzefos and diverticulitis (1 source)Diverticulosis of intestine, part unspecified, without perforation or abscess without bleeding; Translations: [DVRTCLOS PRT UNS NO PERF/ABSC NO BL] Onset: 99-36-6134JkajgkjPhmfcrtxr hypertension (7 sources)Benign essential hypertension; Translations: [Benign essential hypertension]Onset: 799991-38-5592BcgsehiGfrtt and electrolyte disorders (2 sources)Wftwvdefqugu75-65-9291HvnoohioVusfbvrjntieb symptoms and ill-defined conditions (8 sources)Microscopic hematuria; Translations: [Nocturia]89-04-0747Waeyejov Heart valve disorders (3 sources)Mitral valve regurgitation; Translations: [Mitral valve disorders] 36-28-4437VqhoygnArqshxbhqzs of prostate (8 sources)Benign prostatic hypertrophy with outflow obstruction; Translations: [Benign prostatic hyperplasia with lower urinary tract symptoms]Onset: 506785-99-3495AsixcxhOdisrvzdrdbt with complications and secondary hypertension (5 sources)Hypertensive heart disease with heart failure; Translations: [HTN HEART DISEASE W/HEART FAIL]Onset: 26-16-0632FfugtarJlmi disorders (7 sources)Depressive disorder; Translations: [Depression]17-53-2474Nwotmas Neoplasms of unspecified nature or uncertain behavior (3 sources)Neoplasm of uncertain behavior of skin; Translations: [Neoplasm of uncertain behavior of skin]Onset: 95-23-2576BbelgvfeAqqzygtjals deficiencies (4 sources)Vitamin D deficiency, unspecified; Translations: [VITAMIN D DEFICIENCY UNSPECIFIED]Onset: 16-00-4291WljmycqOpttyywunat deficiencies (1 source)Iron deficiency; Translations: [IRON DEFICIENCY]Onset: 09-25-2022 EpisodicOsteoarthritis (2 sources)Qruemxbfy72-02-1416BywjyboDfbrh aftercare (1 source)Drug therapy finding; Translations: [Long-term (current) use of other medications]EpisodicOther aftercare (4 sources)Long-term current use of qwayzmuezxgvl66-02-6007McguhcvcPzxix aftercare (5 sources)Encounter for therapeutic drug level monitoring; Translations: [[facility] DRUG LEVL MONITORING]Onset: 99-69-6870SxgxqfhlMdqhm aftercare (1 source)shelter (current) use of anticoagulants; Translations: [NURSING HOME CURRNT USE ANTICOAGULANTS]Onset: 29-67-3746PvqtatukMgfwt and ill-defined heart disease (2 sources)Gurgidgcilif16-86-9836KljxftuDrbvn circulatory disease (3 sources)Elevated blood pressure; Translations: [Elevated blood-pressure reading, without diagnosis of hypertension]57-57-8983TdoaqbavLlqdz injuries and conditions due to external causes (2 sources)Injury of ugnl10-44-3368QucndjhkAjqqx nervous system disorders (4 sources)H/O: hbzyslpe74-59-3958SdkbzlhuNwaja nutritional; endocrine; and metabolic disorders (1 source)Obesity; Translations: [Obesity, unspecified]ChronicOther nutritional; endocrine; and metabolic disorders (6 sources)Body mass index 30+ - vlwrpuu78-04-0880BxnupitRpcws nutritional; endocrine; and metabolic disorders (1 source)Morbid (severe) obesity due to excess calories; Translations: [MORBID SEVERE OBES D/T EXCESS JACKLYN]Onset: 68-54-9142RwfhociRalhd nutritional; endocrine; and metabolic disorders (1 source)Body mass index (BMI) 30.0-30.9, adult; Translations: [BODY MASS INDEX BMI 30.0-30.9 ADULT]Onset: 32-51-0715VvrzfxvYmtjv nutritional; endocrine; and metabolic disorders (1 source)Body mass index (BMI) 40.0-44.9, adult; Translations: [BODY MASS INDEX BMI 40.0-44.9 ADULT]Onset: 39-88-0454GuzzxeeBvtgw nutritional; endocrine; and metabolic disorders (2 sources)Obesity caused by energy ybaggqtto48-21-2076BggupdtCfipm nutritional; endocrine; and metabolic disorders (1 source)Overweight; Translations: [OVERWEIGHT]Onset: 79-59-1826DosnstraUsaog skin disorders (7 sources)Actinic keratosis; Translations: [Actinic keratosis]Onset: 12-19-2021 EpisodicOther upper respiratory disease (2 sources)Allergic durqwczt50-39-1836QmzzqhsLmnckbpsk; thrombophlebitis and thromboembolism (16 sources)Deep venous thrombosis of lower extremity; Translations: [H/O: Deep vein thrombosis]Onset: 667019-00-2129ZhoafrknEztewpllf heart disease (4 sources)Chronic pulmonary dnlhscox92-05-3209QssczqfOsperijy codes; unclassified (4 sources)Dependent nsviq92-48-7764VgitenkhGzcrxvxc codes; unclassified (6 sources)Family history of prostate ynrnwj77-25-6701LiwvviiaBsccwok and intentional self-inflicted injury (3 sources)Suicidal thoughts; Translations: [Suicidal ideations]06-13-2021 EpisodicUnclassified (4 sources)Finding of sensation of kuoffhl84-25-2789Jgkdfibwcort (1 source)CONTACT W/AND (SUSP) EXPOS COVID-19; Translations: [CONTACT W/AND (SUSP) EXPOS COVID-19]Onset: 60-72-6757Xozequnhcefj (2 sources)Other persistent atrial fibrillation; Translations: [Other persistent atrial fibrillation]Onset: 10-10-2023 Past or Other Problems Problem ClassificationProblemDateDocumented DateEpisodic/ChronicE Codes: Fall (1 source)Unspecified fall, initial encounter; Translations: [UNSPECIFIED FALL INITIAL ENCOUNTER]Onset: 75-81-3984OeiditowNtncvtusmnkrq and screening for infectious disease (1 source)Encounter for immunization; Translations: [ENCOUNTER FOR IMMUNIZATION] Onset: 72-94-8774TiybuohlGaflnexkeuav injury (4 sources)Concussion with loss of consciousness of 30 minutes or less, initial encounter; Translations: [CONCUSSION W/LOC 30 MIN/< INIT ENC]Onset: 05-06-2022 EpisodicMalaise and fatigue (1 source)Weakness; Translations: [WEAKNESS]Onset: 33-23-6210OjunkhfvLaigljisvza chest pain (2 sources)Other chest pain; Translations: [Other chest pain]Onset: 11-30-2024 EpisodicOpen wounds of extremities (1 source)Unspecified open wound of right great toe with damage to nail, initial encounter; Translations: [UNS OPN WND RT GRT TOE W/DMG NL INT]Onset: 06-19-2022 EpisodicOther aftercare (1 source)Other mcc (current) drug therapy; Translations: [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]Onset: 66-15-5806GbwiaqghGnkvd aftercare (1 source)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; Translations: [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 TEACHER CURRENT USE OF INSULIN]Onset: 02-67-8682DdgsyymjTrymi aftercare (1 source)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; Translations: [NURSING HOME USE ORAL HYPOGLYCEMIC DX]Onset: 74-49-7450KbdaszefVqekq circulatory disease (1 source)Orthostatic hypotension; Translations: [ORTHOSTATIC HYPOTENSION]Onset: 71-27-5277FexdedabPhjdh circulatory disease (2 sources)Personal history of other diseases of the circulatory system; Translations: [Personal history of other diseases of the circulatory system] Onset: 59-81-1756WgeobagsPsrsy fractures (1 source)Fracture of coccyx, initial encounter for closed fracture; Translations: [FX COCCYX INITIAL CLOS FRACTURE]Onset: 64-92-9249EsywenspKgpnc injuries and conditions due to external causes (3 sources)Unspecified injury of head, initial encounter; Translations: [UNSPECIFIED INJURY HEAD INITIAL ENC]Onset: 55-96-8052GddbptgwGtvxo injuries and conditions due to external causes (1 source)Other specified injuries of head, initial encounter; Translations: [OTH SPEC INJURIES HEAD INITIAL ENC]Onset: 16-91-2792MqsixgtaBezpc lower respiratory disease (1 source)Personal history of pneumonia (recurrent); Translations: [PERSONAL HX OF PNEUMONIA RECURRENT]Onset: 41-99-6710PuekyrhjLpxbf screening for suspected conditions (not mental disorders or infectious disease) (4 sources)Other specified abnormal findings of blood chemistry; Translations: [Encounter for screening for malignant neoplasm of prostate]Onset: 09-25-2022 EpisodicResidual codes; unclassified (6 sources)Edema, unspecified; Translations: [EDEMA UNSPECIFIED]Onset: 62-59-5612PhtvtxccStiuzmgc codes; unclassified (1 source)Acquired absence of other specified parts of digestive tract; Translations: [ACQ ABSENCE OTH PART DIGESTV TRACT]Onset: 40-20-6087Dtfreyds Residual codes; unclassified (1 source)Family history of malignant neoplasm of prostate; Translations: [FAMILY HX MALIG NEOPLASM PROSTATE]Onset: 96-93-1914DagdlsaoOvswsxsk codes; unclassified (2 sources)Other specified postprocedural states; Translations: [Other specified postprocedural states]Onset: 42-92-2730IvbimmypYemanxike and history of mental health and substance abuse codes (2 sources)Ex-smoker; Translations: [Personal history of tobacco use]Onset: 33-07-5538KpwfhvuoDifocfd on above:QUIT CIGS 1982;Superficial injury; contusion (1 source)Contusion of left shoulder, initial encounter; Translations: [CONTUSION LEFT SHOULDER INITIAL ENC]Onset: 86-73-7173XjkqiagvXvomwhk (3 sources)Syncope and collapse; Translations: [SYNCOPE AND COLLAPSE]Onset: 11-65-2573Dtwasvde Results Test NameValueInterpretationReference RangeFacilityOrders Onlyon 06-13-2025 Orders [id number] Kim Moreno 1950 M Date Provider Department Center 06/13/2025 [facility] Family History Problem Relation Age of Onset Coronary artery disease Mother Coronary artery disease Father Heart attack Father Family Status - Relation Status Age at Mother Father DeceasedNormalUniversity of [facility]Orders Onlyon 05-11-2025 Orders [id number] Kim Moreno 1950 M Date Provider Department Center 05/11/2025 [id number], HISTORICAL CARD [facility] Family History Problem Relation Age of Onset Coronary artery disease Mother Coronary artery disease Father Heart attack Father Family Status - Relation Status Age at Mother [facility]on Addended by: RAND SANTILLAN on: 05/10/2025 01:57 PM Modules accepted: [facility] 90-15-8828Uwqjrz-up [id number] Bebeto Morenoe E 1950 M Date Provider Department Center 05/10/2025 241-RAND SANTILLAN CARD [facility] Family History Problem Relation Age of Onset Coronary artery disease Mother Coronary artery disease Father Heart attack Father Family Status - Relation Status Age at Mother Father Level of Service:[id number] [facility] OFFICE/OUTPATIENT ESTABLISHED HIGH MDM 41 [facility]Or[facility] Only99-21-9572Bdjdnq [id number] Raclaudiasmelissader,Kim E 1950 M Date Provider Department Center 04/19/2025 [facility] C[facility] Family History Problem Relation Age of Onset Coronary artery disease Mother Coronary artery disease Father Heart attack Father Family Status - Relation Status Age at Mother Father DeceasedLutheran HospitalOrders Onlyon 03-19-2025 Orders [id number] Bebeto Morenoe E 1950 M [facility] Provider Department Center 03/19/2025 325-ORLY [facility] CARD [place] [facility] Family History Problem Relation Age of Onset Coronary artery disease Mother Coronary artery disease Father Heart attack Father Family Status - Relation Status Age at Mother Father DeceasedNoGal[facility]36 Regarding lab results from 02/10/2025: Gavino De La Fuente, ALLYSSA Webber MA Please let him know his labs show good cholesterol levels. Normal liver function. Kidney function is stable. Continue current medication regimen and follow-up with Dr. Santillan as scheduled. Thanks Patient informed and verbalized understanding.[place] [address]on *Start baby aspirin 81mg daily *Increase lasix to 20mg daily. *Have follow-up labs in 2 weeks (around 02/10/25) - you will need to fast 10-12 hours prior. You can have water or black coffee or tea leading up to this. *[facility] HospitalFollow-Upon [id number]-Up [id number] Kim Moreno 1950 M [facility]ly [facility] Provider Department Center 01/27/2025 Regi-[facility] Family History Problem Relation Age of Onset Coronary artery disease Mother Coronary artery disease Father Heart attack Father Family Status - Relation Status Age at Mother Father Level of Service:21629 UT OFFICE/OUTPATIENT ESTABLISHED MOD MDM 30 MIN Reason for Visit and Comments: Atrial Fibrillation [80] Coronary Artery Disease [187] Hyperlipidemia [182][facility] HospitalOrders Onlyon 69-86-3040Fqceor [id number] Kim Moreno 1950 M Date Provider Department Center 01/17/2025 325-[facility] Family History Problem Relation Age of Onset Coronary artery disease Mother Coronary artery disease Father Heart attack Father Family Status - Relation Status Age at Mother FatherNormalUniKindred Hospital Daytonon [id number] Of Present Illness Kim Moreno is a 74 y.o. male presenting with [...] that he does not use drugs. Allergies Oxycodone-acetaminophen and Zithromax [azithromycin] Medications Medications Prior to [...] possible PCI. Shelton Solano MD PGY-7 Interventional Cardiology FellowNormalUniFirelands Regional Medical Center NURSNOTEon 98-03-0900CRAZYXLUFW educated pt on d/c instructions. This included: site care, limited physical [...] wheeled off of unit with all of belongings.NormalUnOhioHealthOrders Onlyon 99-96-3246Bipvbp [id number] Kim Moreno 1950 M Date Provider Department Center 12/16/2024 [facility] Family History Problem Relation Age of Onset Coronary artery disease Mother Coronary artery disease Father Heart attack Father Family Status - Relation Status Age at Mother FatherNormalUniFirelands Regional Medical Center36on [id number]'s stress test was abnormal for inferoapical and anteroaplical ischemia which is new compared to his prior stress tests. Reviewed with Dr. Tapia, advise coronary angiogram. Discussed recommendations with patient and discussed risks and benefits, risks including bleeding/infection, renal impairment, stroke/MA,, needing emergent open heart surgery, vessel tearing. He understands risks/benefits and is agreeable to proceed. Given his CKD, recommend pre/post procedure hydration. Would like 100ml/hr for 4 hours pre/post procedure to help reduce risk of contrast induced nephropathy. Gavino De La Fuente APRN-RECONCILIATION ACCOUNTANT [facility] Cardiovascular MedicineNormalUniFirelands Regional Medical CenterTelephoneon [id number] Kim Moreno 1950 M Date Provider Department Center 11/17/2024 GAVINO REYNOLDS Family History Problem Relation Age of Onset Coronary artery disease Mother Coronary artery disease Father Heart attack Father Family Status - Relation Status Age at Mother FatherNoGalion HospitalOffice Visiton [id number]- up [id number] Kim Moreno 1950 M Date Provider Department Center 10/20/2024 GAVINO REYNOLDS Family History Problem Relation Age of Onset Coronary artery disease Mother Coronary artery disease Father Heart attack Father Family Status - Relation Status Age at Mother Father Level of Service:60313 UT OFFICE/OUTPATIENT ESTABLISHED MOD MDM 30 MIN Reason for Visit and Comments: Atrial Fibrillation [80]NormalUnOhioHealthAmbulatory Visit Summaryon 15-49-0843Cambbpdjem Visit SummaryAmbulatory Visit Summary KIM MORENO :1950 Visit Date:10/12/2024 Ambulatory Visit Instructions Your Diagnosis Solar keratosis Your Care Team Attending Physician - MERRICK NARAYANAN, Nick Wyatt Primary Care Physician - Iker Corrigan MD This Is Your Medications List Contact [...] concerns Allergies Zithromax (Swelling of both lips) acetaminophen-oxycodone (Hallucinations) Problems Ongoing - Any problem that [...] you for choosing us for your care. [facility] CenterGeneral Surgery Office/Clinic Noteon 09-94-1892Igxxmgj Surgery Office/Clinic NoteGeneral Surgery Office/Clinic Note Chief Complaint post operative follow up HPI Staff 13 day post operative follow up post excisional biopsy right forearm skin lesions x 3. Denies soreness, no use of pain medication. Denies bleeding or drainage. Sutures intact. History of Present Illness 13 days s/p excisional biopsy of changing lesions right forearm x 2; pathology with solar keratosisand epidermal cysts; healing well, no pain or drainage. Review of Systems PHQ Score Initial Depression Screen Score: 0 SCORE ROS - Provider Constitutional: no fever, no sweats, no weight loss. Eyes: no glasses, no blurred vision, no visual loss. ENMT: no dentures, no hoarseness, no swallowing difficulties, no hearing loss, no ear infection(s),no nose bleeds. Cardiovascular: normal blood pressure, no [...] Status SARS-CoV-2 (COVID-19) mRNA BNT-162b2 vax 10/16/2020 RecordedNormmarkSelect Medical Specialty Hospital - AkronComment on above:Result Comment: Electronically Signed By: MERRICK NARAYANAN, Nick Dockery\Date and Time Signed: 10/12/24 13:14 ESTPathology study report documentOrdered By: Prince Moctezuma on [id number] studyCleveland Clinic [facility] Other lon 09-29-2024L Specimen: [id number] Received: 09/30/24 Status: DANIEL Syl Num: [id number] Spec Type: Surgical Subm Dr: Nick Sin MD FACS Tissues: A Skin-Other than Cyst, tag, debridement or plastic repair (MEDIAL RIGHT FOREA B Skin-Other than Cyst, tag, debridement or plastic repair (LATERAL RIGHT FORE Procedures: Lacey, Gross/Micro L4/2 Age/ Patient Sex Location Account Attending Physician Kim Moreno 74/M LABELL [id number] Nick Sin MD FACS SPEC NUM: [id number] RECD: 09/30/24 STATUS: DANIEL MEDRANO NUM: [id number] MIKAL: 09/29/24 [facility] DR: Nick Sin MD FACS ENTERED: 09/30/[address]: Kaushal,Lab SPEC TYPE: Surgical DEPT: DINO GARCÍA ENTERED BY: [id number] RECV BY: [id number] ORDERED: HE/10, Gross/Micro L4/2 ORDERED: HE/10, Gross/Micro [...] the specimen submitted in A2. (2, ns, [id number] A)STACEY Specimen: [id number] Received: 09/30/24 Status: DANIEL Medrano Num: [id number] Spec Type: Surgical Subm Dr: Nick Sin MD FACS Tissues: A Skin-Other than Cyst, tag, debridement or plastic repair (MEDIAL RIGHT FOREA B Skin-Other than Cyst, tag, debridement or plastic repair (LATERAL RIGHT FORE Procedures: , Gross/Micro L4/2 Patient: JoshBebetoe Jenna [id number] (Continued) Specimen: [id number] Received: 09/30/24 (Continued) Gross Description (Continued) Signed (signature on file) Prince Moctezuma MD 10/04/24 1705 Specimen: [id number] Received: 09/30/24 Status: DANIEL Medrano Num: [id number] Spec Type: Surgical Subm Dr: Nick Sin MD FACS Tissues: A Skin-Other than Cyst, tag, debridement or plastic repair (MEDIAL RIGHT FOREA B Skin-Other than Cyst, tag, debridement or plastic repair (LATERAL RIGHT FORE Procedures: , Gross/Micro L4/2 Patient: sierraKim [id number] (Continued) Specimen: [id number] Received: 09/30/24 (Continued) Gross Description (Continued) Part [...] the specimen submitted in B2. (2, ns, [id number] B) Microscopic Description A B: Microscopic examination is performed. CPT Codes 41059 x2 Specimen: [id number] Received: 09/30/24 Status: DANIEL Medrano Num: [id number] Spec Type: (more content not included)...[facility] Ambulatory Visit Summaryon 30-15-0817Oxvawwqitv Visit SummaryAmbulatory Visit Summary KIM MORENO :1950 Visit Date:09/08/2024 Ambulatory Visit Instructions Your [...] day Allergies Zithromax (Swelling of both lips) acetaminophen-oxycodone (Hallucinations) Problems Ongoing - Any problem that [...] you for choosing us for your care. [facility] CenterPROF CHEM 8 (BAS METB)on 67-74-3903Ydfxn gap [Moles/Vol]12.9 mmol/LNormalThe [facility] County HospitalComment on above:Performed By: #### CMREP #### [facility] [address] [place] [address] Dr. Caroline BellCalcium [Mass/Vol]9.4 mg/dLNormal8.5-10.1[facility] Comment on above:Performed By: #### CMREP #### [facility] [address] [place] [address] Dr. Caroline BellChloride [Moles/Vol]106 mmol/WRfgjez25-447Xgo [facility] Comment on above:Performed By: #### CMREP #### [facility] [address] [place] [address] Dr. Caroline BellCO2 [Moles/Vol]28.0 mmol/LEtypkv53.0-32.0The [facility] Comment on above:Performed By: #### CMREP #### [facility] [address] [place] [address] Dr. Caroline BellCreatinine [Mass/Vol]1.63 mg/dLCritically high0.70-1.30The [facility] HospitalComment on above:Performed By: #### CMREP #### [facility] [address] [place] [address] Dr. Velazquez ChangEGFR-AF URGVOIWA00 mL/min/1.24n4Hitwufvdau low>=60The [facility] HospitalComment on above:Performed By: #### CMREP #### [facility] [address] [place] [address] Dr. Caroline LimGFR-NON AF VQCHDDDQ49 mL/min/1.48m9Kojblojnfv low>=60The [facility] HospitalComment on above:Performed By: #### CMREP #### [facility] [address] [place] [address] Dr. Caroline BellGlucose [Mass/Vol]79 mg/eHRpvnvc00-837NmwT[facility] City Hospital Comment on above:Performed By: #### CMREP #### [facility] [address] [place] [address] Dr. Caroline BellPotassium [Moles/Vol]4.9 mmol/LNormal3.5-5.1The [facility] Comment on above:Performed By: #### CMREP #### [facility] [address] [place] [address] Dr. Caroline BellSodium [Moles/Vol]142 mmol/AJeghjp408-970EijTwin City Hospital Comment on above:Performed By: #### CMREP #### [facility] [address] [place] [address] Dr. Caroline BellUrea nitrogen [Mass/Vol]32.0 mg/dLCritically high7.0-18.0[facility] City HospitalComment on above:Performed By: #### CMREP #### [facility] [address] [place] [address] Dr. Caroline Cruz nitrogen/Creatinine [Mass ratio]19.6 mg/mgNormalThe [facility] HospitalComment on above:Performed By: #### CMREP #### [facility] [address] [place] [address] Dr. Caroline SlaterF CHEM 8 (BAS METB)on 56-71-8153Gvrcy gap [Moles/Vol]14.7 mmol/LNormalThe [facility] HospitalComment on above:Performed By: #### INSULIN #### [facility] [address] [place] [address] Dr. Caroline BellCalcium [Mass/Vol]9.1 mg/dLNormal8.5-10.1[facility] Comment on above:Performed By: #### INSULIN #### [facility] [address] [place] [address] Dr. Caroline BellChloride [Moles/Vol]107 mmol/ENrgbfw55-299PhvTwin City Hospital Comment on above:Performed By: #### INSULIN #### [facility] [address] [place] [address] Dr. Caroline BellCO2 [Moles/Vol]26.4 mmol/EOfbztx96.0-32.0[facility] Comment on above:Performed By: #### INSULIN #### [facility] [address] [place] [address] Dr. Caroline BellCreatinine [Mass/Vol]1.82 mg/dLCritically high0.70-1.30The [facility] HospitalComment on above:Performed By: #### INSULIN #### [facility] [address] [place] [address] Dr. Caroline LimGFR-AF QWJFXKSS61 mL/min/1.47b8Udqvgelpmb low>=60The [facility] HospitalComment on above:Performed By: #### INSULIN #### [facility] [address] [address] [address] Caroline LimGFR-NON AF CPIZAUYU74 mL/min/1.69x6Iqsilgiktf low>=60The [facility] HospitalComment on above:Performed By: #### INSULIN #### [facility] [address] [address] [address] Caroline BellGlucose [Mass/Vol]324 mg/dLCritically rlkn24-232Mqd [facility] HospitalComment on above:Performed By: #### INSULIN #### [facility] [address] [address] [address] Caroline BellPotassium [Moles/Vol]5.1 mmol/LNormal3.5-5.1[facility] Comment on above:Performed By: #### INSULIN #### [facility] [address] [address] [address] Caroline BellSodium [Moles/Vol]143 mmol/AGiuqir121-280LziTwin City Hospital Comment on above:Performed By: #### INSULIN #### [facility] [address] [address] [address] Caroline BellUrea nitrogen [Mass/Vol]30.0 mg/dLCritically high7.0-18.0The [facility] HospitalComment on above:Performed By: #### INSULIN #### [facility] [address] [address] [address] Caroline BellUrea nitrogen/Creatinine [Mass ratio]16.5 mg/mgNormalThe [facility] HospitalComment on above:Performed By: #### INSULIN #### [facility] [address] [address] [address] Caroline LimCHOCARGURINDER M/2D COMPLETEon 08-33-6715CRVPBLCIJP M/2D COMPLETE Patient: KIM MORENO Exam Date: 09/27/2022 : 1950 Gender:M Ordering : DR IKER CORRIGAN . Admission #: [id number] Family : GAVINO DE LA FUENTE [facility] Order #: [id number] CLICK HERE TO VIEW EXAM ECHOCARDIOGRAM REPORT [...] by: Saúl Estrada M.D. on 09/27/2022 at 15:06NoAshtabula County Medical CenterINSULINon 35-57-1783Etecayt08.1 uIU/mLNormal2.6-24.9The [facility] HospitalComment on above:Performed By: #### INSULIN #### [facility] [address] [place] [address] Dr. Caroline Wang 25-80-9004Srkxpploocz peptide B (Bld) [Mass/Vol]2963.0 pg/mLCritically high<=900.0The [facility] HospitalComment on above:Performed By: #### VITAD, PSASC #### [facility] [address] [place] [address] Dr. Caroline Cisneros AUTO DIFFon 35-08-7152JFVU #0.1 103/ulNormal0.0-0.1The [facility] HospitalComment on above:Performed By: #### POCGLUC #### [facility] [address] [place] [address] Dr. Caroline Ramosphils/100 WBC (Bld)0.8 %Normal0.2-2.0The [facility] Comment on above:Performed By: #### POCGLUC #### [facility] [address] [place] [address] Dr. Yilan ChangEO #0.3 103/ulNormal0.0-0.7The [facility] HospitalComment on above: Performed By: #### POCGLUC #### [facility] [address] [place] [address] Dr. Caroline Limosinophils/100 WBC (Bld)4.2 %Normal0.9-7.0The [facility] Comment on above:Performed By: #### POCGLUC #### [facility] [address] [place] [address] Dr. Caroline Limrythrocyte distribution width (RBC) [Ratio]14.1 %Kbaqol11.0-15.0 The [facility] HospitalComment on above:Performed By: #### POCGLUC #### [facility] [address] [place] [address] Dr. Caroline BellHematocrit (Bld) [Volume fraction]41.8 %Critically low42.0-54.0 The [facility] HospitalComment on above:Performed By: #### POCGLUC #### [facility] [address] [place] [address] Dr. Caroline BellHemoglobin (Bld) [Mass/Vol]12.7 g/dLCritically low14.0-18.0The [facility] HospitalComment on above:Performed By: #### POCGLUC #### [facility] [address] [place] [address] Dr. Caroline Flores #0.03 10e3/ulNormal0.00-0.03The [facility] HospitalComment on above:Performed By: #### POCGLUC #### [facility] [address] [place] [address] Dr. Caroline Flores %0.4 %Normal0.0-0.5The [facility] HospitalComment on above: Performed By: #### POCGLUC #### [facility] [address] [place] [address] Dr. Caroline Armando #1.8 103/ulNormal1.2-3.8The [facility] HospitalComment on above:Performed By: #### POCGLUC #### [facility] [address] [address] [address] Caroline Chavezmphocytes/100 WBC (Bld)23.0 %Shdupp50.5-60.0The [facility] HospitalComment on above:Performed By: #### POCGLUC #### [facility] [address] [place] [address] Dr. Caroline Kelly DIFF REQNONormalThe [facility] HospitalComment on above: Performed By: #### POCGLUC #### [facility] [address] [place] [address] Dr. Caroline Martines (RBC) [Entitic mass]29.3 slAwqhmt48.9-34.0The [facility] HospitalComment on above:Performed By: #### POCGLUC #### [facility] [address] [place] [address] Dr. Caroline Martines (RBC) [Mass/Vol]30.4 g/lDKxyvps88.9-35.2The [facility] HospitalComment on above:Performed By: #### POCGLUC #### [facility] [address] [place] [address] Dr. Caroline Martines (RBC) [Entitic vol]96.3 fLCritically high80.0-94.0The [facility] HospitalComment on above:Performed By: #### POCGLUC #### [facility] [address] [place] [address] Dr. Caroline Cheema #0.5 103/ulNormal0.3-0.8The [facility] HospitalComment on above:Performed By: #### POCGLUC #### [facility] [address] [place] [address] Dr. Caroline Srivastavaocytes/100 WBC (Bld)6.2 %Normal1.7-12.0The [facility] Comment on above:Performed By: #### POCGLUC #### [facility] [address] [place] [address] Dr. Caroline Pop #5.2 103/ulNormal1.4-6.5The [facility] HospitalComment on above:Performed By: #### POCGLUC #### [facility] [address] [address] [address] Caroline BellNeutrophils/100 WBC (Bld)65.4 %Joptbq53.0-75.0The [facility] on above:Performed By: #### POCGLUC #### [facility] [address] [place] [address] Dr. Caroline Nguyễnlet mean volume (Bld) [Entitic vol]10.0 fLNormal9.5-13.5The [facility] HospitalComment on above:Performed By: #### POCGLUC #### [facility] [address] [place] [address] Dr. Caroline BellPLT232 103/uiZzvdoz485-948Lkc [facility] HospitalComveterans affairs [facility] on above: Performed By: #### POCGLUC #### [facility] [address] [place] [address] Dr. Caroline BellRBC4.34 106/ulCritically low4.70-6.10The [facility] HospitalComment on above:Performed By: #### POCGLUC #### [facility] [address] [place] [address] Dr. Caroline BellWBC7.9 103/ulNormal4.0-11.0The [facility] on above: Performed By: #### POCGLUC #### [facility] [address] [place] [address] Dr. Caroline Gaines THYROXINE INDEX T7on 94-88-1371VCQ0.06Stdwte8.30-4.50The [facility] HospitalComment on above:Performed By: #### VITAD, PSASC #### [facility] [address] [place] [address] Dr. Caroline BellT3U33.0 %Hzpsfu72.0-40.0The [facility] HospitalComment on above: Performed By: #### VITAD, PSASC #### [facility] [address] [place] [address] Dr. Caroline BellT4 [Mass/Vol]6.20 ug/dLNormal4.50-12.10The [facility] Comment on above:Performed By: #### VITAD, PSASC #### [facility] [address] [address] [address] Caroline BellGLYCOHEMOGLOBIN A1Con 99-74-1556UWM RECOMMENDATIONSEE BELOWDayton Va Medical CenterComveterans affairs [facility] on above:Result Comment: ADA RECOMMENDED LIMIT 4.0 - 6.0 ADA THERAPEUTIC TARGET < 7.0 ACTION SUGGESTED > 7.0Performed By: #### POCGLUC #### [facility] [address] [place] [address] Dr. Caroline BellHbA1c (Bld) [Mass fraction]7.2 %Critically high4.5-6.2[facility] City HospitalComment on above:Performed By: #### POCGLUC #### [facility] [address] [place] [address] Dr. Caroline BellLIPID PROFILEon 91-09-3503OLDQ-HDL RATIO NORMSEE BELOWWayne HealthCare Main CampusComment on above:Result Comment: 3.3 - 4.4 LOW RISK 4.4 - 7.1 AVERAGE RISK 7.1 - 11.0 MODERATE RISK >11.0 HIGH RISKPerformed By: #### VITJAVI, PSASC #### [facility] [address] [place] [address] Dr. Caroline Hanesterol [Mass/Vol]132 mg/dLNormal<=200[facility] Comment on above:Performed By: #### VITAD, PSASC #### [facility] [address] [place] [address] Dr. Caroline BellCholesterol in HDL [Mass/Vol]67 mg/dLCritically hflk76-05EhbOhioHealth Van Wert Hospital on above:Performed By: #### VITAD, PSASC #### [facility] [address] [place] [address] Dr. Caroline BellCholesterol in LDL [Mass/Vol]54.2 mg/dLNoAshtabula County Medical CenterComveterans affairs [facility] system on above:Performed By: #### VITAD, PSASC #### [facility] [address] [place] [address] Dr. Caroline BellCholesterol.total/Cholesterol in HDL [Mass ratio]2.0 {ratio} NormalThe [facility] County HospitalComment on above:Performed By: #### SHIRA PSASC #### [facility] [address] [place] [address] Dr. Caroline Robles NORMAL> or = 60 mg/dl - LOW CARDIOVASCULAR RISK <40 mg/dl - HIGH CARDIOVASCULAR RISKWayne HealthCare Main CampusComment on above:Performed By: #### VITJAVI PSASC #### [facility] [address] [place] [address] Dr. Caroline BellLDL CALC NORMALSEE BELOWWayne HealthCare Main CampusComment on above:Result Comment: <100 mg/dl OPTIMAL 100 - 129 mg/dl NEAR OR ABOVE OPTIMAL 130 - 159 mg/dl BORDERLINE HIGH 160 - 189 mg/dl HIGH >190 mg/dl VERY HIGH Performed By: #### SHIRA PSASC #### [facility] [address] [place] [address] Dr. Caroline BellTriglyceride [Mass/Vol]54 mg/dLNormal<=150[facility] Comment on above:Performed By: #### SHIRA PSASC #### [facility] [address] [place] [address] Dr. Caroline BellVLDL CALC10.8 mg/dLNoAshtabula County Medical CenterComment on above: Performed By: #### SHIRA PSASC #### [facility] [address] [place] [address] Dr. Caroline BellPROF 14(COMP METB)on 37-16-6095Txicker [Mass/Vol]3.8 g/dLNormal 3.4-5.0T[facility] City HospitalComment on above:Performed By: #### VITJAVI, PSASC #### [facility] [address] [place] [address] Dr. Caroline BellAlbumin/Globulin [Mass ratio]0.9 {ratio}NormalThe [facility] HospitalComment on above:Performed By: #### VITJAVI PSASC #### [facility] [address] [address] [address] Caroline WoodsP [Catalytic activity/Vol]99 U/AHipsar62-318Lsg [facility] HospitalComment on above:Performed By: #### VITAD, PSASC #### [facility] [address] [place] [address] Dr. Caroline WoodsT [Catalytic activity/Vol]25 U/KWbznwl35-88Tam [facility] HospitalComment on above:Performed By: #### VITAD, PSASC #### [facility] [address] [place] [address] Dr. Caroline Dineroon gap [Moles/Vol]13.2 mmol/LNormalTwin City Hospital Comment on above:Performed By: #### VITAD, PSASC #### [facility] [address] [place] [address] Dr. Caroline BellAST [Catalytic activity/Vol]18 U/QXqbync72-91Dlc [facility] HospitalComment on above:Performed By: #### VITAD, PSASC #### [facility] [address] [place] [address] Dr. Caroline BellBilirubin [Mass/Vol]0.5 mg/dLNormal0.2-1.0The [facility] Comment on above:Performed By: #### VITAD, PSASC #### [facility] [address] [place] [address] Dr. Caroline BellCalcium [Mass/Vol]9.3 mg/dLNormal8.5-10.1[facility] Comment on above:Performed By: #### VITAD, PSASC #### [facility] [address] [place] [address] Dr. Caroline BellChloride [Moles/Vol]106 mmol/OJvfudu96-702Jwl [facility] Comment on above:Performed By: #### VITAD, PSASC #### [facility] [address] [place] [address] Dr. Caroline BellCO2 [Moles/Vol]26.1 mmol/ADfqnmt81.0-32.0The [facility] Comment on above:Performed By: #### VITAD, PSASC #### [facility] [address] [place] [address] Dr. Caroline BellCreatinine [Mass/Vol]1.59 mg/dLCritically high0.70-1.30The [facility] HospitalComment on above:Performed By: #### VITAD, PSASC #### [facility] [address] [place] [address] Dr. Velazquez ChangEGFR-AF YKMXRWYV48 mL/min/1.24v7Tdjgrpzvfb low>=60The [facility] HospitalComment on above:Performed By: #### VITAD, PSASC #### [facility] [address] [place] [address] Dr. Caroline LimGFR-NON AF YGWGRGPT65 mL/min/1.29w7Jtrnimlbtu low>=60The [facility] HospitalComment on above:Performed By: #### VITAD, PSASC #### [facility] [address] [place] [address] Dr. Caroline BellGlobulin (S) [Mass/Vol]4.2 g/dLNormSelect Medical Specialty Hospital - CincinnatiComment on above:Performed By: #### VITAD, PSASC #### [facility] [address] [place] [address] Dr. Caroline BellGlucose [Mass/Vol]160 mg/dLNoAshtabula County Medical CenterComment on above:Performed By: #### VITAD, PSASC #### [facility] [address] [place] [address] Dr. Caroline BellPerformed By: #### POCGLUC #### [facility] [address] [place] [address] Dr. Caroline BellPotassium [Moles/Vol]5.3 mmol/LCritically high3.5-5.1The [facility] on above:Performed By: #### VITAD, PSASC #### [facility] [address] [place] [address] Dr. Caroline BellProtein [Mass/Vol]8.0 g/dLNormal6.4-8.2The [facility] Comment on above:Performed By: #### VITAD, PSASC #### [facility] [address] [place] [address] Dr. Caroline BellSodium [Moles/Vol]140 mmol/AMaxmfw771-030Tlk [facility] Comment on above:Performed By: #### VITAD, PSASC #### [facility] [address] [place] [address] Dr. Caroline BellUrea nitrogen [Mass/Vol]30.0 mg/dLCritically high7.0-18.0The [facility] HospitalComment on above:Performed By: #### VITAD, PSASC #### [facility] [address] [place] [address] Dr. Caroline BellUrea nitrogen/Creatinine [Mass ratio]18.9 mg/mgNoAshtabula County Medical CenterComment on above:Performed By: #### VITAD, PSASC #### [facility] [address] [place] [address] Dr. Caroline CervantesHotania 32-43-2161TFE4.076 uIU/mLNormal0.358-3.740The [facility] HospitalComment on above:Performed By: #### VITAD, PSASC #### [facility] [address] [place] [address] Dr. Caroline BellURIC ACID SERUMon 98-95-1511Nzghr [Mass/Vol]5.9 mg/dLNormal 3.5-7.2The [facility] HospitalComment on above:Performed By: #### VITAD, PSASC #### [facility] [address] [place] [address] Dr. Caroline BellVITAMIN D 25 OHon 30-71-6268ZEJ D 25-OH32.7 ng/mLNormalThe [facility] County HospitalComment on above:Performed By: #### VITAD, PSASC #### [facility] [address] [place] [address] Dr. Caroline Lainez [place]ANGES[place] BELOWWayne HealthCare Main CampusComment on above: Result Comment: <20 ng/mL Vit D deficient 20 - <30 ng/mL Vit D insufficient 30 - 100 ng/mL Vit D sufficient >100 ng/mL Potential ToxicityPerformed By: #### VITAD, PSASC #### [facility] [address] [place] [address] Dr. Caroline Cisneros AUTO DIFFon [id number] #0.1 103/ulNormal0.0-0.1The [facility] HospitalComment on above:Performed By: #### CBC #### [facility] [address] [place] [address] Dr. Caroline BellBasophils/100 WBC (Bld)0.4 %Normal0.2-2.0[facility] Comment on above:Performed By: #### CBC #### [facility] [address] [place] [address] Dr. Caroline Singh #0.2 103/ulNormal0.0-0.7The [facility] HospitalComment on above: Performed By: #### CBC #### [facility] [address] [place] [address] Dr. Caroline Limosinophils/100 WBC (Bld)2.0 %Normal0.9-7.0[facility] Comment on above:Performed By: #### CBC #### [facility] [address] [place] [address] Dr. Caroline Limrythrocyte distribution width (RBC) [Ratio]14.5 %Uvqvye69.0-15.0 [facility] HospitalComment on above:Performed By: #### CBC #### [facility] [address] [place] [address] Dr. Caroline BellHematocrit (Bld) [Volume fraction]35.6 %Critically low42.0-54.0 [facility] HospitalComment on above:Performed By: #### CBC #### [facility] [address] [place] [address] Dr. Caroline BellHemoglobin (Bld) [Mass/Vol]11.4 g/dLCritically low14.0-18.0The [facility] HospitalComment on above:Performed By: #### CBC #### [facility] [address] [place] [address] Dr. Caroline Flores #0.05 10e3/ulCritically high0.00-0.03The [facility] Comment on above:Performed By: #### CBC #### [facility] [address] [place] [address] Dr. Caroline Flores %0.4 %Normal0.0-0.5The [facility] HospitalComment on above: Performed By: #### CBC #### [facility] [address] [place] [address] Dr. Caroline Armando #1.4 103/ulNormal1.2-3.8The [facility] HospitalComment on above:Performed By: #### CBC #### [facility] [address] [place] [address] Dr. Caroline Irbyhocytes/100 WBC (Bld)12.0 %Critically low20.5-60.0The [facility] HospitalComment on above:Performed By: #### CBC #### [facility] [address] [place] [address] Dr. Caroline DaleyUAL DIFF REQNONormalThe [facility] County HospitalComment on above: Performed By: #### CBC #### [facility] [address] [place] [address] Dr. Caroline Martines (RBC) [Entitic mass]29.5 vjMpwvtc09.9-34.0The [facility] HospitalComment on above:Performed By: #### CBC #### [facility] [address] [place] [address] Dr. Caroline Martines (RBC) [Mass/Vol]32.0 g/hOZuwufr50.9-35.2The [facility] HospitalComment on above:Performed By: #### CBC #### [facility] [address] [place] [address] Dr. Caroline Martnies (RBC) [Entitic vol]92.2 tPGnpxly76.0-94.0The [facility] HospitalComment on above:Performed By: #### CBC #### [facility] [address] [address] [address] Caroline Cheema #0.7 103/ulNormal0.3-0.8The [facility] HospitalComment on above:Performed By: #### CBC #### [facility] [address] [address] [address] Caroline Srivastavaocytes/100 WBC (Bld)5.7 %Normal1.7-12.0[facility] Comment on above:Performed By: #### CBC #### [facility] [address] [place] [address] Dr. Caroline Pop #9.6 103/ulCritically high1.4-6.5The [facility] Comment on above:Performed By: #### CBC #### [facility] [address] [place] [address] Dr. Caroline Aquinoutrophils/100 WBC (Bld)79.5 %Critically high43.0-75.0The [facility] HospitalComment on above:Performed By: #### CBC #### [facility] [address] [place] [address] Dr. Caroline Nguyễnlet mean volume (Bld) [Entitic vol]10.0 fLNormal9.5-13.5The [facility] HospitalComment on above:Performed By: #### CBC #### [facility] [address] [place] [address] Dr. Caroline BellPLT240 103/goHtccqg318-639Byh [facility] HospitalComment on above: Performed By: #### CBC #### [facility] [address] [place] [address] Dr. Caroline BellRBC3.86 106/ulCritically low4.70-6.10The [facility] HospitalComment on above:Performed By: #### CBC #### [facility] [address] [place] [address] Dr. Caroline BellWBC12.0 103/ulCritically high4.0-11.0The [facility] HospitalComment on above:Performed By: #### CBC #### [facility] [address] [address] [address] Caroline Mascorro CSPINE WO CONon [id number] CSPINE WO CONEXAM: CT CSPINE WO CON 06/18/2022 12:09 AM EDT [place]001 [...] Electronically authenticated by: MARLENI SAID Date: 2022-06-18 02:07NoAshtabula County Medical CenterCT HEAD WO CONon [id number] HEAD WO CONEXAM: CT HEAD WO CON 06/18/2022 12:09 AM [...] Electronically authenticated by: MARLENI SAID Date: 2022-06-18 01:46[facility] CampusER URINE PROFILEon 66-82-5771Tectncfgo Ql (U)NegativeNormal NEGATIVEThe [facility] County HospitalComment on above:Performed By: #### VITAD, PSASC #### [facility] [address] [address] [address] Yilan ChangClarity (U)CLEARNormalCLEARTwin City HospitalComment on above: Performed By: #### VITAD, PSASC #### [facility] [address] [address] [address] Caroline Phan (U)LT. YELLOWNormalYELLOWTwin City HospitalComment on above:Performed By: #### VITAD, PSASC #### [facility] [address] [address] [address] Caroline Cisneros micrscopic examination will be performed if indicated. NormalTwin City HospitalComment on above:Performed By: #### VITAD, PSASC #### [facility] [address] [address] [address] Caroline BellGlucose Ql (U)NegativeNormalNEGATIVETwin City HospitalComment on above:Performed By: #### VITAD, PSASC #### [facility] [address] [place] [address] Dr. Caroline BellHemoglobin Ql (U)NegativeNormalNEGATIVEGreene Memorial Hospital on above:Performed By: #### VITAD, PSASC #### [facility] [address] [place] [address] Dr. Caroline Navaones Ql (U)TRACEAbnormalNEGATIVETwin City HospitalComment on above:Performed By: #### VITAD, PSASC #### [facility] [address] [place] [address] Dr. Caroline BellLEUKOCYTESNegativeNormalNEGATIVETwin City HospitalComment on above:Performed By: #### VITAD, PSASC #### [facility] [address] [address] [address] Caroline BellNitrite Ql (U)NegativeNormalNEGATIVETwin City HospitalComment on above:Performed By: #### VITAD, PSASC #### [facility] [address] [address] [address] Caroline BellpH (U)6.0 [pH]Normal5-9[facility] City HospitalComment on above: Performed By: #### VITAD, PSASC #### [facility] [address] [address] [address] Caroline BellSPEC GRAVITY1.481Hwoqul1.005-<=1.025The [facility] HospitalComment on above:Performed By: #### VITAD, PSASC #### [facility] [address] [address] [address] Caroline Frank PROTEINTRACENormalNEGATIVE/ TRACEThe [facility] County HospitalComment on above:Performed By: #### VITAD, PSASC #### [facility] [address] [address] [address] Caroline Gross MICRO INDNOT INDICATEDNormalThe [facility] HospitalComment on above:Performed By: #### VITAD, PSASC #### [facility] [address] [place] [address] Dr. Caroline Faustbilinogen Qn (U)0.2 {Sophia'U}/dLNormal0.2 - 1.0The [facility] HospitalComment on above:Performed By: #### VITAD, PSASC #### [facility] [address] [place] [address] Dr. Carolien VaughanCTATE/LACTIC ACIDon 16-57-5952Ixrfwpv [Moles/Vol]2.9 mmol/L Critically high0.4-1.9The [facility] HospitalComment on above:Performed By: #### INSULIN #### [facility] [address] [place] [address] Dr. Caroline Vaughanctate [Moles/Vol]1.9 mmol/LNormal0.4-1.9The [facility] Comment on above:Performed By: #### POCGLUC #### [facility] [address] [place] [address] Dr. Caroline BellVAN [facility] GLUCOSEon 24-94-6921Xnwbmcs [Mass/Vol]411 mg/dL Critically higs28-308Kak [facility] HospitalComment on above:Performed By: #### POCGLUC #### [facility] [address] [place] [address] Dr. Yilan ChangGlucose [Mass/Vol]51 mg/dLCritically tlr54-630Bcq [facility] HospitalComment on above:Performed By: #### POCGLUC #### [facility] [address] [place] [address] Dr. Caroline BellPRONilesh 14(COMP METB)on 03-12-0976Ynxppih [Mass/Vol]3.7 g/dLNormal 3.4-5.0The [facility] HospitalComment on above:Performed By: #### VITAD, PSASC #### [facility] [address] [place] [address] Dr. Caroline BellAlbumin/Globulin [Mass ratio]0.9 {ratio}NormalThe [facility] HospitalComment on above:Performed By: #### VITAD, PSASC #### [facility] [address] [place] [address] Dr. Caroline WoodsP [Catalytic activity/Vol]96 U/MLhfdnb57-051Jpy [facility] HospitalComment on above:Performed By: #### VITAD, PSASC #### [facility] [address] [place] [address] Dr. Caroline WoodsT [Catalytic activity/Vol]16 U/WIdrasq16-79Vsd [facility] HospitalComment on above:Performed By: #### VITAD, PSASC #### [facility] [address] [place] [address] Dr. Caroline Swain gap [Moles/Vol]14.3 mmol/LNormalThe [facility] Comment on above:Performed By: #### VITAD, PSASC #### [facility] [address] [place] [address] Dr. Caroline BellAST [Catalytic activity/Vol]15 U/OPzjwzy74-04Ajf [facility] HospitalComment on above:Performed By: #### VITAD, PSASC #### [facility] [address] [place] [address] Dr. Caroline BellBilirubin [Mass/Vol]0.3 mg/dLNormal0.2-1.0The [facility] Comment on above:Performed By: #### VITAD, PSASC #### [facility] [address] [address] [address] Caroline BellCalcium [Mass/Vol]8.9 mg/dLNormal8.5-10.1The [facility] Comment on above:Performed By: #### VITAD, PSASC #### [facility] [address] [address] [address] Caroline BellChloride [Moles/Vol]109 mmol/LCritically jdvi51-105Mmk [facility] HospitalComment on above:Performed By: #### VITAD, PSASC #### [facility] [address] [place] [address] Dr. Caroline BellCO2 [Moles/Vol]22.6 mmol/CKlvylx13.0-32.0The [facility] Comment on above:Performed By: #### VITAD, PSASC #### [facility] [address] [place] [address] Dr. Caroline BellCreatinine [Mass/Vol]1.89 mg/dLCritically high0.70-1.30The [facility] HospitalComment on above:Performed By: #### VITAD, PSASC #### [facility] [address] [place] [address] Dr. Caroline LimGFR-AF DMVOUKCL40 mL/min/1.52f7Cyrwdzpwle low>=60The [facility] HospitalComment on above:Performed By: #### VITAD, PSASC #### [facility] [address] [place] [address] Dr. Caroline LimGFR-NON AF KXDIXIND25 mL/min/1.08z6Jevgyjklma low>=60The [facility] HospitalComment on above:Performed By: #### VITAD, PSASC #### [facility] [address] [place] [address] Dr. Caroline BellGlobulin (S) [Mass/Vol]4.0 g/dLNormalThe [facility] HospitalComment on above:Performed By: #### VITAD, PSASC #### [facility] [address] [place] [address] Dr. Caroline BellGlucose [Mass/Vol]48 mg/dLCritically gpj74-467Bwi [facility] HospitalComment on above:Performed By: #### SHIRA PSASC #### [facility] [address] [place] [address] Dr. Caroline BellPotassium [Moles/Vol]4.9 mmol/LNormal3.5-5.1The [facility] Comment on above:Performed By: #### SHIRA, PSASC #### [facility] [address] [place] [address] Dr. Caroline BellProtein [Mass/Vol]7.7 g/dLNormal6.4-8.2The [facility] Comment on above:Performed By: #### SHIRA, PSASC #### [facility] [address] [place] [address] Dr. Caroline BellSodium [Moles/Vol]141 mmol/GIfacqa148-821Rup [facility] Comment on above:Performed By: #### SHIRA PSASC #### [facility] [address] [place] [address] Dr. Caroline BellUrea nitrogen [Mass/Vol]32.0 mg/dLCritically high7.0-18.0The [facility] HospitalComment on above:Performed By: #### SHIRA PSASC #### [facility] [address] [place] [address] Dr. Caroline BellUrea nitrogen/Creatinine [Mass ratio]16.9 mg/mgNormalThe [facility] HospitalComment on above:Performed By: #### SHIRA, PSASC #### [facility] [address] [place] [address] Dr. Caroline Cerda, HIGH SENSITIVITYon 86-16-1569SFZABE20.8 pg/mLNormal 4.0-76.1The [facility] HospitalComment on above:Result Comment: CUT-OFF POINTS HAVE BEEN ESTABLISHED BASED ON THE FOURTH UNIVERSAL DEFINITIONS OF MYOCARDIAL INFARCTION. THE UPPER REFERENCE LIMIT (URL) OF TROPONIN, DEFINED THE 99TH PERCENTILE OF cTnI DISTRIBUTION IN A REFERENCE POPULATION, HAS BEEN CONFIRMED THE DECISION THRESHOLD FOR MA DIAGNOSIS.Performed By: #### VITJAVI, PSASC #### [facility] [address] [address] [address] Caroline BellXR CHEST 1 Von [id number] CHEST 1 VEXAM: XR CHEST 1 V HISTORY: Syncope COMPARISON: [...] Electronically authenticated by: NICK CHAIREZ Date: 2022-06-18 01:[address] [place], [place] [address]BNPon [id number] peptide B (Bld) [Mass/Vol]5101.0 pg/mLCritically high<=900.0The [facility] HospitalComment on above:Performed By: #### CMREP #### [facility] [address] [place] [address] Dr. Caroline ParmarC AUTO DIFFon 20-83-2679OIVL #0.0 103/ulNormal0.0-0.1[facility] HospitalComment on above:Performed By: #### POCGLUC #### [facility] [address] [place] [address] Dr. Caroline BellBasophils/100 WBC (Bld)0.4 %Normal0.2-2.0[facility] Comment on above:Performed By: #### POCGLUC #### [facility] [address] [place] [address] Dr. Caroline Singh #0.6 103/ulNormal0.0-0.7The [facility] HospitalComment on above: Performed By: #### POCGLUC #### [facility] [address] [place] [address] Dr. Caroline Limosinophils/100 WBC (Bld)6.1 %Normal0.9-7.0The [facility] Comment on above:Performed By: #### POCGLUC #### [facility] [address] [place] [address] Dr. Caroline Limrythrocyte distribution width (RBC) [Ratio]14.4 %Mlwpht07.0-15.0 [facility] HospitalComment on above:Performed By: #### POCGLUC #### [facility] [address] [place] [address] Dr. Caroline BellHematocrit (Bld) [Volume fraction]27.5 %Critically low42.0-54.0 The [facility] HospitalComment on above:Performed By: #### POCGLUC #### [facility] [address] [place] [address] Dr. Caroline BellHemoglobin (Bld) [Mass/Vol]8.7 g/dLCritically low14.0-18.0The [facility] HospitalComment on above:Performed By: #### POCGLUC #### [facility] [address] [place] [address] Dr. Caroline Flores #0.01 10e3/ulNormal0.00-0.03The [facility] HospitalComment on above:Performed By: #### POCGLUC #### [facility] [address] [place] [address] Dr. Caroline Flores %0.1 %Normal0.0-0.5The [facility] on above: Performed By: #### POCGLUC #### [facility] [address] [place] [address] Dr. Caroline IrbyH #2.0 103/ulNormal1.2-3.8The [facility] HospitalComment on above:Performed By: #### POCGLUC #### [facility] [address] [place] [address] Dr. Caroline Irbyhocytes/100 WBC (Bld)20.9 %Streao05.5-60.0[facility] HospitalComment on above:Performed By: #### POCGLUC #### [facility] [address] [place] [address] Dr. Yilan ChangMANUAL DIFF REQNONormalThe [facility] HospitalComment on above: Performed By: #### POCGLUC #### [facility] [address] [address] [address] Caroline Martines (RBC) [Entitic mass]29.6 luHsntzb88.9-34.0The [facility] HospitalComment on above:Performed By: #### POCGLUC #### [facility] [address] [place] [address] Dr. Caroline Martines (RBC) [Mass/Vol]31.6 g/pFNxyvit34.9-35.2The [facility] HospitalComment on above:Performed By: #### POCGLUC #### [facility] [address] [place] [address] Dr. Caroline Aj (RBC) [Entitic vol]93.5 wZPrlape88.0-94.0The [facility] HospitalComment on above:Performed By: #### POCGLUC #### [facility] [address] [place] [address] Dr. Caroline Cheema #0.7 103/ulNormal0.3-0.8The [facility] HospitalComment on above:Performed By: #### POCGLUC #### [facility] [address] [place] [address] Dr. Caroline Srivastavaocytes/100 WBC (Bld)7.7 %Normal1.7-12.0The [facility] Comment on above:Performed By: #### POCGLUC #### [facility] [address] [place] [address] Dr. Caroline Pop #6.2 103/ulNormal1.4-6.5The [facility] HospitalComment on above:Performed By: #### POCGLUC #### [facility] [address] [place] [address] Dr. Caroline Hectorophils/100 WBC (Bld)64.8 %Pwcazy01.0-75.0The [facility] HospitalComment on above:Performed By: #### POCGLUC #### [facility] [address] [place] [address] Dr. Caroline BellPlatelet mean volume (Bld) [Entitic vol]10.1 fLNormal9.5-13.5The [facility] HospitalComment on above:Performed By: #### POCGLUC #### [facility] [address] [address] [address] Caroline BellPLT212 103/biWhdeez687-573Lml [facility] HospitalComment on above: Performed By: #### POCGLUC #### [facility] [address] [address] [address] Caroline BellRBC2.94 106/ulCritically low4.70-6.10The [facility] HospitalComment on above:Performed By: #### POCGLUC #### [facility] [address] [address] [address] Caroline BellWBC9.6 103/ulNormal4.0-11.0The [facility] HospitalComment on above: Performed By: #### POCGLUC #### [facility] [address] [address] [address] Velazquez ChangECHOCARDIO M/2D COMPLETEon [id number] M/2D COMPLETE Patient: KIM MORENO Exam Date: 06/11/2022 : 1950 Gender:M Ordering : [facility] Admission #: [id number] Family : DR IKER CORRIGAN . Order #: [id number] CLICK HERE TO VIEW EXAM ECHOCARDIOGRAM REPORT [...] by: Ciro Tapia M.D. on 06/19/2022 at 10:32[facility] Main CampusPOINT OF CARE GLUCOSEon 42-10-6430Wqrfmho [Mass/Vol]136 mg/dLCritically ytdv22-306FkaTwin City HospitalComment on above:Performed By: #### CMREP #### [facility] [address] [place] [address] Dr. Caroline BellGlucose [Mass/Vol]98 mg/qVFjbodq31-850YxsTwin City Hospital Comment on above:Performed By: #### POCGLUC #### [facility] [address] [place] [address] Dr. Caroline BellPROF CHEM 8 (BAS METB)on 03-29-4134Wsmoq gap [Moles/Vol]13.9 mmol/LNormalTwin City HospitalComment on above:Performed By: #### CMREP #### [facility] [address] [place] [address] Dr. Caroline BellCalcium [Mass/Vol]7.9 mg/dLCritically low8.5-10.1The [facility] HospitalComment on above:Performed By: #### CMREP #### [facility] [address] [place] [address] Dr. Caroline BellChloride [Moles/Vol]110 mmol/LCritically jkxe49-188Muz [facility] HospitalComment on above:Performed By: #### CMREP #### [facility] [address] [place] [address] Dr. Caroline BellCO2 [Moles/Vol]22.2 mmol/FMvunyb14.0-32.0The [facility] Comment on above:Performed By: #### CMREP #### [facility] [address] [address] [address] Caroline BellCreatinine [Mass/Vol]1.64 mg/dLCritically high0.70-1.30The [facility] HospitalComment on above:Performed By: #### CMREP #### [facility] [address] [address] [address] Caroline LimGFR-AF FIORPPVV16 mL/min/1.52u0Zzhjwsnwwh low>=60The [facility] HospitalComment on above:Performed By: #### CMREP #### [facility] [address] [address] [address] Caroline LimGFR-NON AF RKXPMUVZ97 mL/min/1.14r9Vyhenqfpbj low>=60The [facility] HospitalComment on above:Performed By: #### CMREP #### [facility] [address] [place] [address] Dr[address] Caroline BellGlucose [Mass/Vol]94 mg/rOTchacx65-575LdsTwin City Hospital Comment on above:Performed By: #### CMREP #### [facility] [address] [address] [address] Caroline BellPotassium [Moles/Vol]5.1 mmol/LNormal3.5-5.1[facility] Comment on above:Performed By: #### CMREP #### [facility] [address] [address] [address] Caroline BellSodium [Moles/Vol]141 mmol/NTokuld910-007Txx [facility] Comment on above:Performed By: #### CMREP #### [facility] [address] [address] [address] Caroline BellUrea nitrogen [Mass/Vol]30.0 mg/dLCritically high7.0-18.0The [facility] HospitalComment on above:Performed By: #### CMREP #### [facility] [address] [address] [address] Caroline BellUrea nitrogen/Creatinine [Mass ratio]18.3 mg/mgNormalThe [facility] HospitalComment on above:Performed By: #### CMREP #### [facility] [address] [place] [address] Dr. Caroline Myleson [id number] Coag (PPP) [Relative time]2.40 {INR} NormalThe [facility] County HospitalComment on above:Performed By: #### VITAD, PSASC #### [facility] [address] [place] [address] Dr. Caroline Wayne GUIDELINESSEE [address] Mary's Medical CenterComment on above:Result Comment: DESIRED INR: 2.0 - 3.0 CONDITIONS NOT LISTED BELOW 2.5 - 3.5 FOR PROSTHETIC HEART VALVE REPLACEMENT 2.5 - 3.5 RECURRENT THROMBOSIS Performed By: #### VITAD, PSASC #### [facility] [address] [place] [address] Dr. Caroline Bassett Coag (PPP) [Time]24.5 sCritically high9.0-11.6The [facility] HospitalComment on above:Performed By: #### VITAD, PSASC #### [facility] [address] [place] [address] Dr. Caroline Wnag 51-72-7221Dixuntzyupp peptide B (Bld) [Mass/Vol]7103.0 pg/mLCritically high<=900.0The [facility] HospitalComment on above:Performed By: #### CMREP #### [facility] [address] [place] [address] Dr. Caroline Rooturetic peptide B (Bld) [Mass/Vol]6731.0 pg/mLCritically high <=900.0The [facility] HospitalComment on above:Performed By: #### INSULIN #### [facility] [address] [place] [address] Dr. Caroline ORTIZ [id number] [Catalytic activity/Vol]47 U/L Jmfdbj48-017Tgf [facility] HospitalComment on above:Performed By: #### CMREP #### [facility] [address] [place] [address] Dr. Caroline Garcia [Mass/Vol]1.59 ng/mLNormal<=3.60[facility] Comment on above:Performed By: #### CMREP #### [facility] [address] [place] [address] Dr. Caroline Licona10.5 pg/mLNormal4.0-76.1The [facility] HospitalComment on above:Result Comment: CUT-OFF POINTS HAVE BEEN ESTABLISHED BASED ON THE FOURTH UNIVERSAL DEFINITIONS OF MYOCARDIAL INFARCTION. THE UPPER REFERENCE LIMIT (URL) OF TROPONIN, DEFINED THE 99TH PERCENTILE OF cTnI DISTRIBUTION IN A REFERENCE POPULATION, HAS BEEN CONFIRMED THE DECISION THRESHOLD FOR MA DIAGNOSIS.Performed By: #### CMREP #### [facility] [address] [place] [address] Dr. Caroline Jose [Catalytic activity/Vol]58 U/TFanyas88-798Uyb [facility] HospitalComment on above:Performed By: #### CMREP #### [facility] [address] [place] [address] Dr. Caroline Garcia [Mass/Vol]1.90 ng/mLNormal<=3.60The [facility] Comment on above:Performed By: #### CMREP #### [facility] [address] [place] [address] Dr. Caroline Licona10.8 pg/mLNormal4.0-76.1The [facility] HospitalComment on above:Result Comment: CUT-OFF POINTS HAVE BEEN ESTABLISHED BASED ON THE FOURTH UNIVERSAL DEFINITIONS OF MYOCARDIAL INFARCTION. THE UPPER REFERENCE LIMIT (URL) OF TROPONIN, DEFINED THE 99TH PERCENTILE OF cTnI DISTRIBUTION IN A REFERENCE POPULATION, HAS BEEN CONFIRMED THE DECISION THRESHOLD FOR MA DIAGNOSIS.Performed By: #### CMREP #### [facility] [address] [place] [address] Dr. Caroline ORTIZ ADMITon [id number] [Catalytic activity/Vol]62 U/L Dzgxmn78-409IslTwin City HospitalComment on above:Performed By: #### BNP, CMADM, BMP #### [facility] [address] [place] [address] Dr. Yilan ChangCK.MB [Mass/Vol]1.70 ng/mLNormal<=3.60[facility] Comment on above:Performed By: #### BNP, CMADM, BMP #### [facility] [address] [place] [address] Dr. Caroline Da SilvaTROP10.7 pg/mLNormal4.0-76.1The [facility] HospitalComment on above:Result Comment: CUT-OFF POINTS HAVE BEEN ESTABLISHED BASED ON THE FOURTH UNIVERSAL DEFINITIONS OF MYOCARDIAL INFARCTION. THE UPPER REFERENCE LIMIT (URL) OF TROPONIN, DEFINED THE 99TH PERCENTILE OF cTnI DISTRIBUTION IN A REFERENCE POPULATION, HAS BEEN CONFIRMED THE DECISION THRESHOLD FOR MA DIAGNOSIS.Performed By: #### BNP, CMADM, BMP #### [facility] [address] [place] [address] Dr. Caroline RomanO159 ng/mLCritically waxj28-59Ofx [facility] HospitalComment on above:Performed By: #### BNP, CMADM, BMP #### [facility] [address] [place] [address] Dr. Caroline Cisneros AUTO DIFFon [id number] #0.0 103/ulNormal0.0-0.1The [facility] HospitalComment on above:Performed By: #### VITAD, PSASC #### [facility] [address] [place] [address] Dr. Caroline BellBasophils/100 WBC (Bld)0.3 %Normal0.2-2.0The [facility] Comment on above:Performed By: #### VITAD, PSASC #### [facility] [address] [place] [address] Dr. Caroline Singh #0.4 103/ulNormal0.0-0.7The [facility] HospitalComment on above: Performed By: #### VITAD, PSASC #### [facility] [address] [place] [address] Dr. Caroline Limosinophils/100 WBC (Bld)3.0 %Normal0.9-7.0The [facility] Comment on above:Performed By: #### VITAD, PSASC #### [facility] [address] [place] [address] Dr. Caroline Limrythrocyte distribution width (RBC) [Ratio]14.4 %Rllxus14.0-15.0 The [facility] HospitalComment on above:Performed By: #### VITAD, PSASC #### [facility] [address] [place] [address] Dr. Caroline BellHematocrit (Bld) [Volume fraction]32.5 %Critically low42.0-54.0 The [facility] HospitalComment on above:Performed By: #### VITAD, PSASC #### [facility] [address] [place] [address] Dr. Caroline BellHemoglobin (Bld) [Mass/Vol]10.4 g/dLCritically low14.0-18.0The [facility] HospitalComment on above:Performed By: #### VITJAVI PSASC #### [facility] [address] [place] [address] Dr. Caroline Flores #0.04 10e3/ulCritically high0.00-0.03The [facility] Comment on above:Performed By: #### VITJAVI PSASC #### [facility] [address] [place] [address] Dr. Caroline Flores %0.3 %Normal0.0-0.5The [facility] HospitalComment on above: Performed By: #### VITJAVI PSASC #### [facility] [address] [place] [address] Dr. Caroline Armando #1.6 103/ulNormal1.2-3.8The [facility] HospitalComment on above:Performed By: #### VITAD, PSASC #### [facility] [address] [place] [address] Dr. Caroline Irbyhocytes/100 WBC (Bld)13.4 %Critically low20.5-60.0The [facility] HospitalComment on above:Performed By: #### VITAD, PSASC #### [facility] [address] [place] [address] Dr. Caroline Kelly DIFF REQNONormalThe [facility] HospitalComment on above: Performed By: #### VITAD, PSASC #### [facility] [address] [place] [address] Dr. Caroline Martines (RBC) [Entitic mass]30.3 jeTuxddf43.9-34.0The [facility] HospitalComment on above:Performed By: #### VITAD, PSASC #### [facility] [address] [place] [address] Dr. Caroline Martines (RBC) [Mass/Vol]32.0 g/nQIqrbgm02.9-35.2The [facility] HospitalComment on above:Performed By: #### VITAD, PSASC #### [facility] [address] [place] [address] Dr. Caroline Martines (RBC) [Entitic vol]94.8 fLCritically high80.0-94.0The [facility] HospitalComment on above:Performed By: #### VITAD, PSASC #### [facility] [address] [place] [address] Dr. Caroline Cheema #0.8 103/ulNormal0.3-0.8The [facility] HospitalComment on above:Performed By: #### VITAD, PSASC #### [facility] [address] [place] [address] Dr. Caroline Srivastavaocytes/100 WBC (Bld)6.6 %Normal1.7-12.0The [facility] Comment on above:Performed By: #### VITAD, PSASC #### [facility] [address] [place] [address] Dr. Caroline Pop #9.0 103/ulCritically high1.4-6.5The [facility] Comment on above:Performed By: #### VITAD, PSASC #### [facility] [address] [place] [address] Dr. Caroline Aquinoutrophils/100 WBC (Bld)76.4 %Critically high43.0-75.0The [facility] HospitalComment on above:Performed By: #### SHIRA, PSASC #### [facility] [address] [place] [address] Dr. Caroline Nguyễnlet mean volume (Bld) [Entitic vol]10.2 fLNormal9.5-13.5The [facility] HospitalComment on above:Performed By: #### SHIRA PSASC #### [facility] [address] [place] [address] Dr. Caroline BellPLT240 103/szGoagea262-038Bfz [facility] HospitalComment on above: Performed By: #### SHIRA PSASC #### [facility] [address] [place] [address] Dr. Caroline BellRBC3.43 106/ulCritically low4.70-6.10The [facility] HospitalComment on above:Performed By: #### SHIRA PSASC #### [facility] [address] [place] [address] Dr. Caroline BellWBC11.7 103/ulCritically high4.0-11.0The [facility] HospitalComment on above:Performed By: #### SHIRA PSASC #### [facility] [address] [place] [address] Dr. Caroline BasurtoSO #0.1 103/ulNormal0.0-0.1The [facility] HospitalComment on above:Performed By: #### SHIRA PSASC #### [facility] [address] [place] [address] Dr. Caroline Basurtosophils/100 WBC (Bld)0.5 %Normal0.2-2.0The [facility] Comment on above:Performed By: #### SHIRA, PSASC #### [facility] [address] [place] [address] Dr. Caroline Singh #0.6 103/ulNormal0.0-0.7The [facility] HospitalComment on above: Performed By: #### SHIRA PSASC #### [facility] [address] [place] [address] Dr. Caroline Limosinophils/100 WBC (Bld)4.2 %Normal0.9-7.0[facility] Comment on above:Performed By: #### VITAD, PSASC #### [facility] [address] [place] [address] Dr. Caroline Limrythrocyte distribution width (RBC) [Ratio]14.5 %Cxoqbx70.0-15.0 The [facility] HospitalComment on above:Performed By: #### VITAD, PSASC #### [facility] [address] [place] [address] Dr. Caroline BellHematocrit (Bld) [Volume fraction]35.3 %Critically low42.0-54.0 The [facility] HospitalComment on above:Performed By: #### VITAD, PSASC #### [facility] [address] [place] [address] Dr. Caroline BellHemoglobin (Bld) [Mass/Vol]11.2 g/dLCritically low14.0-18.0The [facility] HospitalComment on above:Performed By: #### VITAD, PSASC #### [facility] [address] [place] [address] Dr. Caroline Flores #0.05 10e3/ulCritically high0.00-0.03The [facility] Comment on above:Performed By: #### VITAD, PSASC #### [facility] [address] [place] [address] Dr. Caroline Flores %0.4 %Normal0.0-0.5The [facility] HospitalComment on above: Performed By: #### VITAD, PSASC #### [facility] [address] [place] [address] Dr. Caroline Armando #1.8 103/ulNormal1.2-3.8The [facility] HospitalComment on above:Performed By: #### VITAD, PSASC #### [facility] [address] [place] [address] Dr. Caroline Chavezmphocytes/100 WBC (Bld)13.1 %Critically low20.5-60.0The [facility] HospitalComment on above:Performed By: #### VITJAVI, PSASC #### [facility] [address] [place] [address] Dr. Caroline Kelly DIFF REQNONormalThe [facility] HospitalComment on above: Performed By: #### VITAD, PSASC #### [facility] [address] [place] [address] Dr. Caroline Martines (RBC) [Entitic mass]30.3 goPuzday22.9-34.0The [facility] HospitalComment on above:Performed By: #### VITJAVI, PSASC #### [facility] [address] [place] [address] Dr. Caroline Martines (RBC) [Mass/Vol]31.7 g/vROqzgvi02.9-35.2The [facility] HospitalComment on above:Performed By: #### VITJAVI, PSASC #### [facility] [address] [place] [address] Dr. Caroline Aj (RBC) [Entitic vol]95.4 fLCritically high80.0-94.0The [facility] HospitalComment on above:Performed By: #### VITJAVI, PSASC #### [facility] [address] [place] [address] Dr. Caroline Cheema #0.8 103/ulNormal0.3-0.8The [facility] HospitalComment on above:Performed By: #### VITAD, PSASC #### [facility] [address] [place] [address] Dr. Caroline Srivastavaocytes/100 WBC (Bld)5.6 %Normal1.7-12.0[facility] Comment on above:Performed By: #### VITAD, PSASC #### [facility] [address] [place] [address] Dr. Caroline Pop #10.6 103/ulCritically high1.4-6.5The [facility] Comment on above:Performed By: #### VITAD, PSASC #### [facility] [address] [address] [address] Caroline Aquinoutrophils/100 WBC (Bld)76.2 %Critically high43.0-75.0The [facility] HospitalComment on above:Performed By: #### VITAD, PSASC #### [facility] [address] [address] [address] Caroline Nguyễnlet mean volume (Bld) [Entitic vol]10.0 fLNormal9.5-13.5The [facility] HospitalComment on above:Performed By: #### VITAD, PSASC #### [facility] [address] [address] [address] Caroline BellPLT252 103/juBxmssf488-905Soc [facility] HospitalComment on above: Performed By: #### VITAD, PSASC #### [facility] [address] [address] [address] Caroline BellRBC3.70 106/ulCritically low4.70-6.10The [facility] HospitalComment on above:Performed By: #### VITAD, PSASC #### [facility] [address] [address] [address] Caroline BellWBC13.9 103/ulCritically high4.0-11.0The [facility] on above:Performed By: #### VITAD, PSASC #### [facility] [address] [place] [address] Dr. Caroline BellCT ABD/PELVIS WO CONon [id number] ABD/PELVIS WO CONEXAMINATION: CT ABD/PELVIS WO CON, 06/09/2022 11:35 PM [...] Electronically authenticated by: FERNANDO GONZÁLES Date: 2022-06-10 00:47[facility] [id number] CHEST WO CONEXAMINATION: CT CHEST WO CON HISTORY: Unwitnessed fall. Pain COMPARISON: [...] Electronically authenticated by: FERNANDO GONZÁLES Date: 2022-06-10 00:35[facility] WO CONon [id number] CSPINE WO CONEXAMINATION: CT CSPINE WO CON HISTORY: The patient is a [...] Electronically authenticated by: MARI SO Date: 2022-06-10 00:15[facility]CT [facility]on [id number] HEAD WO CONEXAM: CT HEAD WO CON CLINICAL INDICATION: Pain [...] Electronically authenticated by: AMEYA TANNER Date: 2022-06-10 00:22[facility] L[facility]INE WO CONon [id number] LSPINE WO CONEXAM: CT LSPINE WO CON HISTORY: The patient is a [...] Electronically authenticated by: MARI SO Date: 2022-06-10 00:20NoAshtabula County Medical CenterCovid-19 PCR (CVDTBH)on [id number]-CoV-2 (COVID-19) RNA DANILO+probe Ql (Unsp spec)Not detectedNormalNOT DETECTEDThe [facility] Comment on above:Result Comment: When diagnostic testing is negative, the [...] for this test is supported by the [employer] of Health and Human Service's declaration that circumstances exist to justify the emergency use of in vitro diagnostics for the detection and/or diagnosis of the virus that causes COVID-19. This EUA will remain in effect for the duration of the COVID-19 declaration justifying emergency of IVDs, unless it is terminated or revoked by the FDA (after which the test may no longer be used).Performed By: #### VITAD, PSASC #### [facility] [address] [place] [address] Dr. Caroline Stein-DIMERon 03-00-9014B-DIMER5.83 mg/L FEUCritically high<=0.59The [facility] on above:Performed By: #### INSULIN #### [facility] [address] [place] [address] Dr. Caroline Haney COMMENTSSEE [facility] on above:Result Comment: Increases in D-Dimer concentration observed with thromboembolic events [...] stress, and generalized hospitalization. Performed By: #### INSULIN #### [facility] [address] [place] [address] Dr. Caroline MurguiaGOXINon 17-71-6655KTP3.1 ng/mLNormal0.9-2.0The [facility] on above:Performed By: #### CMREP #### [facility] [address] [place] [address] Dr. Caroline MurguiaG1.5 ng/mLNormal0.9-2.0The [facility] on above: Performed By: #### VITAD, PSASC #### [facility] [address] [place] [address] Dr. Velazquez ChangEEdmundo URINE PROFILEon 95-44-2552Ebudpfdds Ql (U)NegativeNormal NEGATIVEThe [facility] on above:Performed By: #### POCGLUC #### [facility] [address] [address] [address] Caroline Durandarity (U)CLEARNormalCLEARTwin City HospitalComment on above: Performed By: #### POCGLUC #### [facility] [address] [address] [address] Caroline Joellor (U)LT. YELLOWNormalYELLOWTwin City HospitalComment on above:Performed By: #### POCGLUC #### [facility] [address] [address] [address] Caroline Cisneros micrscopic examination will be performed if indicated. NormalTwin City HospitalComment on above:Performed By: #### POCGLUC #### [facility] [address] [place] [address] Dr. Caroline Jimenezose Ql (U)NegativeNormalNEGATIVETwin City HospitalComment on above:Performed By: #### POCGLUC #### [facility] [address] [address] [address] Caroline BellHemoglobin Ql (U)NegativeNormalNEGWhite Hospital on above:Performed By: #### POCGLUC #### [facility] [address] [address] [address] aCroline BellKetones Ql (U)NegativeNormalNEGATIVETwin City HospitalComment on above:Performed By: #### POCGLUC #### [facility] [address] [address] [address] Caroline BellLEUKOCYTESNegativeNormalNEGATIVETwin City HospitalComment on above:Performed By: #### POCGLUC #### [facility] [address] [address] [address] Caroline BellNitrite Ql (U)NegativeNormalNEGATIVETwin City HospitalComment on above:Performed By: #### POCGLUC #### [facility] [address] [address] [address] Caroline BellpH (U)6.0 [pH]Normal5-9[facility] HospitalComment on above: Performed By: #### POCGLUC #### [facility] [address] [address] [address] Caroline BellSPEC GRAVITY1.879Flnzyb1.005-<=1.025The [facility] HospitalComment on above:Performed By: #### POCGLUC #### [facility] [address] [address] [address] Caroline Frank PROTEINNegativeNormalNEGATIVE/ TRACEThe [facility] Comment on above:Performed By: #### POCGLUC #### [facility] [address] [address] [address] Caroline Gross MICRO INDNOT INDICATEDNormalThe [facility] HospitalComment on above:Performed By: #### POCGLUC #### [facility] [address] [place] [address] Dr. Caroline Faustbilinogen Qn (U)0.2 {Sophia'U}/dLNormal0.2 - 1.0The [facility] HospitalComment on above:Performed By: #### POCGLUC #### [facility] [address] [address] [address] Caroline BellN[facility] GLUCOSEon 15-58-2450Qqgxbls [Mass/Vol]121 mg/dL Critically izrm77-537CpyTwin City HospitalComment on above:Performed By: #### POCGLUC #### [facility] [address] [address] [address] Caroline BellGlucose [Mass/Vol]121 mg/dLCritically cfcr10-527Vpe [facility] HospitalComment on above:Performed By: #### VITJAVI PSASC #### [facility] [address] [place] [address] Dr. Caroline BellGlucose [Mass/Vol]120 mg/dLCritically esdx73-978CvoTwin City HospitalComment on above:Performed By: #### VITAD, PSASC #### [facility] [address] [address] [address] Caroline BellGlucose [Mass/Vol]131 mg/dLCritically cafg74-484ZjiTwin City HospitalComment on above:Performed By: #### VITAD, PSASC #### [facility] [address] [address] [address] Caroline BellGlucose [Mass/Vol]496 mg/dLCritically kmck71-909Lyw [facility] HospitalComment on above:Performed By: #### POCGLUC #### [facility] [address] [address] [address] Caroline BellGlucose [Mass/Vol]316 mg/dLCritically mgyx70-150Xfp [facility] HospitalComment on above:Performed By: #### VITAD, PSASC #### [facility] [address] [address] [address] Caroline BellGlucose [Mass/Vol]240 mg/dLCritically yhpn82-534Fdb [facility] HospitalComment on above:Performed By: #### POCGLUC #### [facility] [address] [address] [address] Caroline BellGlucose [Mass/Vol]169 mg/dLCritically xhkx66-885Qql [facility] HospitalComment on above:Performed By: #### CMREP #### [facility] [address] [address] [address] Caroline BellGlucose [Mass/Vol]117 mg/dLCritically oxct39-369Cso [facility] HospitalComveterans affairs [facility] on above:Performed By: #### INSULIN #### [facility] [address] [address] [address] Caroline BellPROF 14(COMP METB)on 46-09-4483Boeprel [Mass/Vol]3.0 g/dL Critically low3.4-5.0The [facility] HospitalComment on above:Performed By: #### CMREP #### [facility] [address] [address] [address] Caroline BellAlbumin/Globulin [Mass ratio]0.9 {ratio}NormalThe [facility] HospitalComveterans affairs [facility] on above:Performed By: #### CMREP #### [facility] [address] [address] [address] Caroline BellALP [Catalytic activity/Vol]80 U/KVumqdx78-956Jsy [facility] HospitalComment on above:Performed By: #### CMREP #### [facility] [address] [address] [address] Caroline WoodsT [Catalytic activity/Vol]13 U/LCritically ruk47-00Xvu [facility] HospitalComment on above:Performed By: #### CMREP #### [facility] [address] [address] [address] Caroline BellAnion gap [Moles/Vol]8.0 mmol/LNormalThe [facility] HospitalComment on above:Performed By: #### CMREP #### [facility] [address] [address] [address] Caroline BellAST [Catalytic activity/Vol]13 U/LCritically gzs79-95Gkl [facility] HospitalComment on above:Performed By: #### CMREP #### [facility] [address] [address] [address] Caroline BellBilirubin [Mass/Vol]0.3 mg/dLNormal0.2-1.0[facility] Comment on above:Performed By: #### CMREP #### [facility] [address] [address] [address] Caroline BellCalcium [Mass/Vol]8.4 mg/dLCritically low8.5-10.1[facility] HospitalComveterans affairs [facility] on above:Performed By: #### CMREP #### [facility] [address] [address] [address] Caroline BellChloride [Moles/Vol]108 mmol/LCritically pgzm29-243Kst [facility] HospitalComment on above:Performed By: #### CMREP #### [facility] [address] [address] [address] Caroline BellCO2 [Moles/Vol]28.1 mmol/SQnknwm43.0-32.0The [facility] Comment on above:Performed By: #### CMREP #### [facility] [address] [address] [address] Caroline BellCreatinine [Mass/Vol]1.69 mg/dLCritically high0.70-1.30The [facility] HospitalComment on above:Performed By: #### CMREP #### [facility] [address] [place] [address] Dr. Caroline LimGFR-AF NBYEEOVN32 mL/min/1.23m7Peawwjgmqn low>=60The [facility] HospitalComment on above:Performed By: #### CMREP #### [facility] [address] [place] [address] Dr. Caroline LimGFR-NON AF XDJTWYKY75 mL/min/1.36x8Hswzsihxbm low>=60The [facility] HospitalComment on above:Performed By: #### CMREP #### [facility] [address] [place] [address] Dr. Caroline BellGlobulin (S) [Mass/Vol]3.3 g/dLNormalThe [facility] HospitalComment on above:Performed By: #### CMREP #### [facility] [address] [place] [address] Dr. Caroline BellGlucose [Mass/Vol]220 mg/dLCritically sbls03-212Chp [facility] HospitalComment on above:Performed By: #### CMREP #### [facility] [address] [place] [address] Dr. Caroline BellPotassium [Moles/Vol]5.1 mmol/LNormal3.5-5.1The [facility] Comment on above:Performed By: #### CMREP #### [facility] [address] [place] [address] Dr. Caroline BellProtein [Mass/Vol]6.3 g/dLCritically low6.4-8.2The [facility] HospitalComment on above:Performed By: #### CMREP #### [facility] [address] [place] [address] Dr. Caroline BellSodium [Moles/Vol]139 mmol/ODtxkrh551-338Rpi [facility] Comment on above:Performed By: #### CMREP #### [facility] [address] [place] [address] Dr. Caroline BellUrea nitrogen [Mass/Vol]32.0 mg/dLCritically high7.0-18.0The [facility] HospitalComment on above:Performed By: #### CMREP #### [facility] [address] [address] [address] Caroline BellUrea nitrogen/Creatinine [Mass ratio]18.9 mg/mgNormalThe [facility] HospitalComment on above:Performed By: #### CMREP #### [facility] [address] [address] [address] Caroline BellPROF CHEM 8 (BAS METB)on 90-04-5052Kulre gap [Moles/Vol]14.2 mmol/LNormalThe [facility] HospitalComment on above:Performed By: #### INSULIN #### [facility] [address] [place] [address] Dr. Caroline BellCalcium [Mass/Vol]8.8 mg/dLNormal8.5-10.1The [facility] Comment on above:Performed By: #### INSULIN #### [facility] [address] [place] [address] Dr. Caroline BellChloride [Moles/Vol]110 mmol/LCritically kfby90-138Xfp [facility] HospitalComment on above:Performed By: #### INSULIN #### [facility] [address] [place] [address] Dr. Caroline BellCO2 [Moles/Vol]21.7 mmol/YZmmowp41.0-32.0The [facility] Comment on above:Performed By: #### INSULIN #### [facility] [address] [place] [address] Dr. Caroline BellCreatinine [Mass/Vol]2.07 mg/dLCritically high0.70-1.30The [facility] HospitalComment on above:Performed By: #### INSULIN #### [facility] [address] [place] [address] Dr. Velazquez ChangEGFR-AF WLWMZOTK30 mL/min/1.13h9Jlsdlltltu low>=60The [facility] HospitalComment on above:Performed By: #### INSULIN #### [facility] [address] [address] [address] Caroline LimGFR-NON AF RBCFSMIP50 mL/min/1.87h5Zfziopdovx low>=60The [facility] HospitalComment on above:Performed By: #### INSULIN #### [facility] [address] [address] [address] Caroline BellGlucose [Mass/Vol]126 mg/dLCritically thpq50-614Eml [facility] HospitalComment on above:Performed By: #### INSULIN #### [facility] [address] [address] [address] Caroline BellPotassium [Moles/Vol]4.9 mmol/LNormal3.5-5.1The [facility] Comment on above:Performed By: #### INSULIN #### [facility] [address] [address] [address] Caroline BellSodium [Moles/Vol]141 mmol/YLasrpw724-869Aru [facility] Comment on above:Performed By: #### INSULIN #### [facility] [address] [address] [address] Caroline BellUrea nitrogen [Mass/Vol]34.0 mg/dLCritically high7.0-18.0The [facility] HospitalComment on above:Performed By: #### INSULIN #### [facility] [address] [address] [address] Caroline Cruz nitrogen/Creatinine [Mass ratio]16.4 mg/mgNoAshtabula County Medical CenterComment on above:Performed By: #### INSULIN #### [facility] [address] [address] [address] Caroline BellPROTIMEmilana 23-68-9162BYC Coag (PPP) [Relative time]1.43 {INR} NormalThe [facility] HospitalComment on above:Performed By: #### INSULIN #### [facility] [address] [address] [address] Caroline Wayne GUIDELINESSEE BELOWWayne HealthCare Main CampusComment on above:Result Comment: DESIRED INR: 2.0 - 3.0 CONDITIONS NOT LISTED BELOW 2.5 - 3.5 FOR PROSTHETIC HEART VALVE REPLACEMENT 2.5 - 3.5 RECURRENT THROMBOSIS Performed By: #### INSULIN #### [facility] [address] [place] [address] Dr. Caroline Bassett Coag (PPP) [Time]15.1 sCritically high9.0-11.6The [facility] HospitalComment on above:Performed By: #### INSULIN #### [facility] [address] [place] [address] Dr. Caroline Quijano 25-45-7811kOUB Coag (Bld) [Time]28.2 fDoiijp79.3-36.2The [facility] HospitalComment on above:Performed By: #### INSULIN #### [facility] [address] [place] [address] Dr. Caroline Ramirez4on 81-03-9832C5 [Mass/Vol]4.40 ug/dLCritically low4.50-12.10The [facility] HospitalComment on above:Performed By: #### VITAD, PSASC #### [facility] [address] [place] [address] Dr. Caroline CervantesHotania 58-34-9245ZYY6.911 uIU/mLNormal0.358-3.740The [facility] HospitalComment on above:Performed By: #### POCGLUC #### [facility] [address] [place] [address] Dr. Caroline BellCT HEAD WO CONon 02-93-2085FD HEAD WO CONEXAMINATION: CT HEAD WO CON HISTORY: Concussion with [...] Electronically authenticated by: TONY IYER Date: 2022-05-07 07:15NormalThe [facility] AUTO DIFFon 54-76-7364DUKT #0.1 103/ulNormal0.0-0.1The [facility] HospitalComment on above:Performed By: #### VITAD, PSASC #### [facility] [address] [place] [address] Dr. Caroline BellBasophils/100 WBC (Bld)0.5 %Normal0.2-2.0[facility] Comment on above:Performed By: #### VITAD, PSASC #### [facility] [address] [place] [address] Dr. Caroline Singh #0.6 103/ulNormal0.0-0.7The [facility] HospitalComment on above: Performed By: #### VITAD, PSASC #### [facility] [address] [place] [address] Dr. Caroline Limosinophils/100 WBC (Bld)4.6 %Normal0.9-7.0The [facility] Comment on above:Performed By: #### VITJAVI, PSASC #### [facility] [address] [place] [address] Dr. Caroline Limrythrocyte distribution width (RBC) [Ratio]14.4 %Djjmbz92.0-15.0 The [facility] HospitalComment on above:Performed By: #### VITAD, PSASC #### [facility] [address] [place] [address] Dr. Caroline BellHematocrit (Bld) [Volume fraction]34.7 %Critically low42.0-54.0 The [facility] HospitalComment on above:Performed By: #### VITAD, PSASC #### [facility] [address] [place] [address] Dr. Caroline BellHemoglobin (Bld) [Mass/Vol]11.1 g/dLCritically low14.0-18.0The [facility] HospitalComment on above:Performed By: #### VITAD, PSASC #### [facility] [address] [place] [address] Dr. Caroline Flores #0.05 10e3/ulCritically high0.00-0.03The [facility] Comment on above:Performed By: #### VITAD, PSASC #### [facility] [address] [place] [address] Dr. Caroline Flores %0.4 %Normal0.0-0.5The [facility] HospitalComment on above: Performed By: #### VITAD, PSASC #### [facility] [address] [place] [address] Dr. Caroline Armando #1.8 103/ulNormal1.2-3.8The [facility] HospitalComment on above:Performed By: #### VITAD, PSASC #### [facility] [address] [place] [address] Dr. Caroline Irbyhocytes/100 WBC (Bld)13.4 %Critically low20.5-60.0The [facility] HospitalComment on above:Performed By: #### VITAD, PSASC #### [facility] [address] [place] [address] Dr. Caroline DaleyUAL DIFF REQNONormalThe [facility] HospitalComment on above: Performed By: #### VITAD, PSASC #### [facility] [address] [place] [address] Dr. Caroline Schwartz (RBC) [Entitic mass]29.7 djXpdant15.9-34.0The [facility] HospitalComment on above:Performed By: #### VITAD, PSASC #### [facility] [address] [place] [address] Dr. Caroline Martines (RBC) [Mass/Vol]32.0 g/sJMvxnxv23.9-35.2The [facility] HospitalComment on above:Performed By: #### VITAD, PSASC #### [facility] [address] [place] [address] Dr. Caroline Aj (RBC) [Entitic vol]92.8 wYBqtucm81.0-94.0The [facility] HospitalComment on above:Performed By: #### VITAD, PSASC #### [facility] [address] [place] [address] Dr. Caroline Cheema #0.9 103/ulCritically high0.3-0.8The [facility] Comment on above:Performed By: #### VITAD, PSASC #### [facility] [address] [place] [address] Dr. Caroline Srivastavaocytes/100 WBC (Bld)6.8 %Normal1.7-12.0The [facility] Comment on above:Performed By: #### VITAD, PSASC #### [facility] [address] [place] [address] Dr. Caroline Pop #9.7 103/ulCritically high1.4-6.5The [facility] Comment on above:Performed By: #### VITAD, PSASC #### [facility] [address] [place] [address] Dr. Caroline Aquinoutrophils/100 WBC (Bld)74.3 %Mmrikn05.0-75.0The [facility] HospitalComment on above:Performed By: #### VITAD, PSASC #### [facility] [address] [place] [address] Dr. Caroline Nguyễnlet mean volume (Bld) [Entitic vol]10.0 fLNormal9.5-13.5The [facility] HospitalComment on above:Performed By: #### VITAD, PSASC #### [facility] [address] [place] [address] Dr. Caroline BellPLT296 103/rpLorjzv732-194Hzi [facility] HospitalComment on above: Performed By: #### VITAD, PSASC #### [facility] [address] [place] [address] Dr. Caroline BellRBC3.74 106/ulCritically low4.70-6.10The [facility] HospitalComment on above:Performed By: #### VITAD, PSASC #### [facility] [address], [place] [address] Dr. Caroline BellWBC13.1 103/ulCritically high4.0-11.0The [facility] on above:Performed By: #### VITAD, PSASC #### [facility] [address], [place] [address] Dr. Caroline BellCT CSPINE WO CONon 22-37-8553YQ CSPINE WO CONEXAMINATION: CT CSPINE WO CON HISTORY: COMPARISON: No relevant comparison [...] Electronically authenticated by: TONY IYER Date: 2022-05-02 15:14[facility] CampusCT [facility] WO CONon 56-12-4619XO HEAD WO CONEXAMINATION: CT HEAD WO CON HISTORY: Unspecified fall [...] Electronically authenticated by: TONY IYER Date: 2022-05-02 15:08NoAshtabula County Medical CenterPROTIMEon 59-26-1329FVN Coag (PPP) [Relative time]3.49 {INR} NormalThe [facility] HospitalComment on above:Performed By: #### POCGLUC #### [facility] [address] [place] [address] Dr. Caroline Wayne GUIDELINESSEE BELOWNoAshtabula County Medical CenterComment on above:Result Comment: DESIRED INR: 2.0 - 3.0 CONDITIONS NOT LISTED BELOW 2.5 - 3.5 FOR PROSTHETIC HEART VALVE REPLACEMENT 2.5 - 3.5 RECURRENT THROMBOSIS Performed By: #### POCGLUC #### [facility] [address] [place] [address] Dr. Caroline Bassett Coag (PPP) [Time]34.7 sCritically high9.0-11.6The [facility] HospitalComment on above:Performed By: #### POCGLUC #### [facility] [address] [place] [address] Dr. Caroline Quijano 09-64-5985pUMY Coag (Bld) [Time]47.0 sCritically high 22.3-36.2The [facility] HospitalComment on above:Performed By: #### POCGLUC #### [facility] [address] [place] [address] Dr. Caroline BellCovid-19 PCR ([facility])on 44-33-2696WFRJ-CoV-2 (COVID-19) RNA DANILO+probe Ql (Unsp spec)Not detectedNormalNOT DETECTEDTwin City Hospital Comment on above:Result Comment: This test is not yet approved or cleared by the [place] FDA. When there are no FDA-approved or cleared tests available, and other criteria are met, FDA can make tests available under an emergency access mechanism called an Emergency Use Authorization (EUA). The EUA for this test is supported by the [employer] of Health and Human Service's (HHS's) declaration that circumstances exist to justify the emergency use of in vitro diagnostics for the detection and/or diagnosis of the virus that causes COVID- 19. This EUA will remain in effect (meaning [...] of clinical signs and symptoms consistent with SARS-CoV-2.Performed By: #### CMREP #### [facility] [address] [place] [address] Dr. Caroline SahaMPTOMATIC COVID-19 ANTIGENon 59-45-4514MUR StatementSEE BELOW NormalThe [facility] HospitalComment on above:Result Comment: This test has not been FDA [...] declaration is terminated or authorization is revoked sooner.Performed By: #### INSULIN #### [facility] [address] [place] [address] [address] [address] Caroline Arevalo-CoV-2 (COVID-19) RNA DANILO+probe Ql (Unsp spec)NegativeNormal NEGATIVEThe [facility] HospitalComment on above:Performed By: #### INSULIN #### [facility] [address] [place] [address] [address] Caroline Nj Visit (Cardiology)on 06-93-9900Uedwjc-up visit Diagnoses/Problems Assessed Chronic atrial fibrillation (427.31) [...] my direction and personally dictated by me. Ihave reviewed the chart and agree that the [...] Sodium 2 MG Oral Tabletas directed by [facility] Allergies Medication Zithromax TABS Adverse Reaction; Swelling; [...] Recorded: 04Sep2021 08:49AM Heart Rate60, L Radial Vniohvlh966, RUE, Sitting Oognxywwe11, RUE, Sitting Height5 ft 8 in Mgzoua766 lb BMI Xhtktbqqfh12.84 kg/m2 BSA Calculated2.11 Tobacco Useb) No Fall Screeninga) No falls within the last year Signatures Electronically signed by : Nick Burton DO; Sep 04 2021 9:01AM EST (Author) [facility] TouchworksTobacco Screening.on 70-58-6354Kwhk risk assessmenta) No falls within the last yearL[facility] [employer] 250 DO Work Phone: Tobacco use status CPHSb) No[facility] [place] 250 DO Work Phone: NOH CARDIAC STRESS/REST INJECTIONon 11-74-6940YZF CARDIAC STRESS/REST INJECTIONMRN: [id number] Patient Name: KIM MORENO STUDY: MYOCARDIAL PERFUSION STRESS TEST WITH LEXISCAN Performing facility: [facility], [address], [address], [place] [address] [facility] Provider: Nick Burton DO, [facility] PCP: Dr. Arlene Corrigan Supervising provider: Bao Jane MD, [facility] INDICATION: Chest Pain; HISTORY: Gender: M; Age: 70 y/o ; Height: 172.72 cm; Weight: 98.1275341 kg. High Cholesterol; Diabetes; Previous MA; HTN; Quit smoking 38 years ago. COMPARISON: Previous nuclear testing completed [id number] at [place]. ACCESSION NUMBER(S): [id number]; [id number]; [id number] ORDERING CLINICIAN: NICK BURTON TECHNIQUE: ONE DAY protocol. Stress injection: Date:01-25-21, 35.3 mCi of Myoview IV 20 seconds after rapid injection of Lexiscan. Rest injection: Date: 01-25-21, 10.8 mCi of Myoview IV at rest. The patient had a rapid injection of 0.4 mg of Lexiscan IV over 10 seconds. Imaging was performed by gated tomographic technique. Reason for Lexiscan: dizziness/unsteady/fall risk STRESS TEST DATA: Resting heart rate [...] interval changes. Electronically signed by: BAO JANE MDGrand View Health Vital Signs Date TimeVital SignValuePerforming HiqbzysutOxmetpxk41-30-0652 14:07-0500Blood Pressure LocationMichael NILL [phone]-DsvzkJoint [facility] [place] 09-08-2024 14:07-0500Diastolic blood dwlotqpz44 mm[Hg]Nick NILL [phone]-TogdwJoint [facility] [place] 09-08-2024 14:07-0500Heart rate72 /minMichael NILL [phone]-WeltiJoint [facility] [place] 09-08-2024 14:07-0500Respiratory rate16 /minMichael NILL [phone]-DcxmjJoint [facility] [place] 09-08-2024 14:07-0500Systolic blood sgpdafwd646 mm[Hg]Nick NILL [phone]-ZleprJoint [facility] District [facility] [place] 12-19-2021 15:14-0400Diastolic blood geypfkuy54 mm[Hg]Nick NILL [facility] [place] 05-04-2022 15:14-0400Heart rate68 /minMichael NILL [facility] [place] 05-04-2022 15:14-0400Respiratory rate16 /minMichael NILL [facility] [place] 05-04-2022 15:14-0400Systolic blood pkzjcdyq793 mm[Hg] Nick NILL [facility] [place] 01-18-2022 08:49-0500Body qnupyv078.72 cmDouglas M Juan Pabloy Work Phone: [phone]-Uyspv [place] [facility] 250 DO Work Phone: [phone]) 361-701001-18-2022 08:49-0500Body mass index (BMI) [Ratio] 32.84 kg/f9Tbjtven M Hoy Work Phone: [phone]-Ywsnb [place] [facility] 250 DO Work Phone: [phone]) [phone] 08:49-0500Body surface area Derived from formula2.11 p9Xuvzmre M Hoy Work Phone: [phone]-Dibuf [place] [facility] 250 DO Work Phone: [phone]) [phone] 08:49-0500Body owocxz27.98 kgDocesario Stevenson Hoy Work Phone: [phone]-Sugea [place] [facility] 250 DO Work Phone: [phone]) [phone] 08:49-0500Diastolic blood avmirejp97 mm[Hg] Iker Stevenson Hoy Work Phone: [phone]-Ejinj [place] [facility] 250 DO Work Phone: [phone]) [phone] 08:49-0500Heart rate60 /minDouglas Elva Hoy Work Phone: [phone]-Opkjy [place] [facility] 250 DO Work Phone: [phone]) [phone] 08:49-0500Systolic blood vgudhnqt008 mm[Hg] Iker Stevenson Hoy Work Phone: [phone]-Fsbwt [place] [facility] 250 DO Work Phone: Encounters Encounter DateEncounter TypeCare ProviderFacilityStart: 05-10-2025 End: 58-05-2364esijwznbkkAKEH CHACKFairfield Medical Centertart: 10-11-3670prjlkashydJSJIO UBBUFirelands Regional Medical Center South Campustart: 40-31-2493wvuvkvgfmwVTREPGenesis Hospitaltart: 74-57-3693zntzusnnetOCVEK GRUBCleveland Clinic Foundationtart: 89-94-7106viqbuizoceVSWYN GRUBBUniversUniversity Hospitals Health Systemtart: 17-81-3129xdhngypobvDirewuk M HoyFacility:[facility] Start: 01-27-2025 End: 82-48-1939jllselgunvZCGDOFF [facility] Hospitaltart: 00-32-5172tnsxbndpxnKSMH [facility]tering Healthtart: 12-23-2024 End: 83-44-0250ehlkwhxcwuOPJFRR JOBWilson Street Hospital Start: 52-48-3878qlswcfjsonEOMS [facility] Healthtart: 28-26-6808kjihjhnbcmZKOWFirelands Regional Medical Centertart: 10-20-2024 End: 92-75-1205jjkckdqcguICUJYHNMercy Health Fairfield Hospitaltart: 10-12-2024 End: 50-73-5802rxbdiucyknBzrhlaw R NILLFacility: BellevueStart: 10-12-2024 End: 28-31-2331Jnnijra encounter procedureMichael R NILL [phone]-SyzxtJoint Township District [facility] [place] Start: 09-29-2024 End: 12-59-5950xsabkwtueaFuigrci M Hoy MD Work Phone: [facility] Work Phone: Start: 09-29-2024 End: 45-77-4565Vmzsjviq Julián Corrigan MD Work Phone: [facility]-LAB Path Spec [place] HospStart: 09-28-2024 End: 76-17-0627pqarlcnzytVyiukxk M Hoy MD Work Phone: [facility] Work Phone: Start: 09-28-2024 End: 61-12-0701Vlpmmzwf Julián Corrigan MD Work Phone: [facility] Path Spec [place] HospStart: 91-22-2695mofbquyvjyJCMG [facility] Start: 44-41-0892Xvjmsmqcjs Sheridan Corrigan MD Work Phone: [facility]-BH CredibleStart: 09-08-2024 End: 40-01-7346fcosufqvihNdaquxs R NILLFacility:[facility] RehabilitationueStart: 09-08-2024 End: 25-25-4478Uilvagy encounter procedureMichael R NILL [phone]-NpvzcJoint [facility] District [facility] [place] Start: 87-55-7915whbpyjbpkiRQPLFirelands Regional Medical Centertart: 41-54-7363lpvsvzfrihLQPJFirelands Regional Medical Centertart: 34-49-4141yffzimzmauWZLZFirelands Regional Medical Centertart: 54-42-5065snfjhafbddCJXITriHealth [facility] Start: 04-14-2023 End: 85-14-8858Ipkhqxf encounter procedurePapaulette KHAN [facility] start: 12-11-2022 End: 94-23-2892qowsoaigmkGLHFUUO TUCKERFacility:N7Gxdnt: 11-13-2022 End: 96-31-5730obxdzkcmnjXL IKER CORRIGAN .Facility:Z2Ynskk: 10-16-2022 End: 48-09-9357jzqwanxaisWVSTGK H FAWWADFacility:B1Ikhsa: 09-27-2022 End: 02-85-9488xpdsbuzlqjTA IKER CORRIGAN .Facility:P6Quzbv: 09-23-2022 End: 84-29-6379ivldlsqdsqKN IKER CORRIGAN .Facility:A7Sjykn: 09-18-2022 End: 59-95-8943vbyvpinrycVU IKER CORRIGAN .Facility:E4Fyjao: 08-19-2022 End: 96-48-3440bplrqzzprxMI IKER HOY .Facility:P6Ihxdv: 07-18-2022 End: 09-82-5259aqzjodnvpcKK IKER HOY .Facility:H8Wyecn: 06-18-2022 End: 74-80-3385urisweuvdcZZ IKER HOY .Facility:S7Prcpc: 06-18-2022 End: 64-47-8747enccrvgpjnFD IKER HOY .Facility:U3Lufxb: 06-10-2022 End: 48-99-9173ccuoepxmieUM IKER HOY .Facility:E4Guucz: 05-19-2022 End: 48-98-6190nntphyexeeSNHHVT H FAWWADFacility:I5Rcdyh: 60-15-2387zqligagdnfAK IKER HOY .Facility:E1Wqmkt: 05-06-2022 End: 43-64-7790smxtgpquetXE IKER HOY .Facility:S2Rhkih: 05-02-2022 End: 00-70-6180fsdrvorazkZV JASON CARVER .Facility:P7Vkasm: 04-18-2022 End: 00-10-8644vtysxjoinrRGTALN H FAWWADFacility:S8Xwxjt: 03-18-2022 End: 25-87-7108twlgafdxtlBDJFUO H FAWWADFacility:Q9Csqyb: 02-15-2022 End: 22-89-5079jrecnlcnpiSZZSWO H FAWWADFacility:P7Azuvk: 01-28-2022 End: 53-58-4466kkvistkrrzFD IKER HOY .Facility:P5Jmmev: 01-16-2022 End: 80-99-6773sxiplntocxSNCSBP H FAWWADFacility:Z5Arrah: 01-15-2022 End: 35-56-9501mgczvbbfgbZI CALEB KHAN .Facility:P4Ovssc: 12-19-2021 End: 31-26-2026Egpccnf encounter procedureMichael R NILL General Surgery Nill/Said [place] Start: 12-17-2021 End: 21-29-4406jlgeuapslqYUABHT H FAWWADFacility:B0Rkzhd: 31-74-9214Peqobn outpatient visit 25 minutesDocesario Corrigan Work Phone: [phone]-Vljoe [place] [facility] 250 DO Work Phone: Start: 03-34-8239Ye RenewalDocesario Corrigan Work Phone: [phone]-Pactp [place] [facility] [address] [place] Work Phone: Start: 20-78-3275Ixglpdx encounter procedureBo [facility] Facility:[id number]: 03-05-2017 End: 51-68-6368BndnxrbubyGGVHVUG PHYSICIANFacility:[facility] Procedures DateProcedureProcedure DetailPerforming ClinicianStart: 26-15-4437Qhzdtgho of lesion of skinMichael NILL Start: 21-79-6998KhcutqdeisxbqWizfykj NILL Start: 19-05-2216NNU screeningDR IKER HOY .Comment on above:Performed By: #### VITAD, PSASC #### [facility] [address] [place] [address] Dr. Caroline Hernandez: 90-11-5584AUJ screeningDR IKER HOY .Comment on above: Performed By: #### PSAD #### [facility] [address] [place] [address] Dr. Caroline Hernandez: 44-58-7339KzffipqkknAqhsbne NILL Arthroscopy of shoulderMichael NILL CholecystectomyDougalicia Almeiday Work Phone: CholecystectomyMichael NILL ColonoscopyMichael NILL Extraction of cataractMichael NILL Implantation of insertable loop recorderMichael NILL Insertion of inferior vena caval filterMichael NILL Repair of musculotendinous cuff of shoulderDouglas Elva Hoy Work Phone: Tooth extractionDouglas M Hoy Work Phone: Total colonoscopyDouglas M Hoy Work Phone: Comment on above:PROCEDURE DATE ; Plan of Treatment DateCare ActivityDetailAuthorStart: 97-14-1574KMG, Provider: Nick Burton, Status: Pen, Time: 10:45 AMFUV, Provider: Nick Burton, Status: Pen, Time: 10:45 [place] [address] [place] Work Phone: Start: 03-68-3680QHT, Provider: Nick Burton, Status: Pen, Time: 8:45 AMFUV, Provider: Nick Burton, Status: Pen, Time: 8:45 AMN[place] [address]A [place] Work Phone: Immunizations Immunization DateImmunizationNotesCare VvukwbvxEkqcsppn41-81-7013Yyepnu-YpbRFpsi COVID-19 Vacc 30 MCG/0.3ML Intramuscular SuspensionDocesario Stevenson [facility] Work Phone: [phone]-TzvksNicholas [place] [address] DO Work Phone: [phone], injectable,quadrivalent, preservative free, pediatricDougalicia Stevenson [place] Work Phone: [phone]-RxehwNich[place] [address] DO Work Phone: [phone], tetanus toxoids and pertussis vaccineDouglas Elva Hoy Work Phone: [phone]-EcfuxC[facility] [address] DO Work Phone: [phone]-WhaUJxuc COVID-19 Vacc 30 MCG/0.3ML Intramuscular SuspensionDouglas Elva y Work Phone: [phone]-LzgeoNich[place] [address] [place] Work Phone: [phone]-XehYEron COVID-19 Vacc 30 MCG/0.3ML Intramuscular SuspensionDouglas M Hoy Work Phone: [phone]-HzeykNicholas [place] [address] DO Work Phone: [phone]-FdV-7 (COVID-19) mRNA BNT-162b2 vax Nick NILL [facility] [place] [phone] trivalent influenza vaccine, adjuvanted, preservative freeDouglas M Hoy Work Phone: [phone]-EngwuNich[place] [address] DO Work Phone: [phone] virus vaccine, unspecified formulationDouglas M Hoy Work Phone: [phone]-UmdshNicholas [place] [address] DO Work Phone: [phone] virus vaccine, unspecified formulationDouglas M Hoy Work Phone: [phone]-AdnysNicholas [place] [address] DO Work Phone: [phone] trivalent influenza vaccine, adjuvanted, preservative freeDouglas M Hoy Work Phone: [phone]-IanugNich[place] [address] DO Work Phone: [phone], seasonal, injectableDouglas M Hoy Work Phone: [phone]-SxcieNich[place] [address] DO Work Phone: [phone] polysaccharide vaccine, 23 valentDouglas M Hoy Work Phone: [phone]-YixqdNicholas [place] [address] DO Work Phone: [phone] virus vaccine, unspecified formulationDouglas M Hoy Work Phone: [phone]-SagwuN[place] [address] DO Work Phone: [phone], injectable, quadrivalent, preservative Tracie Stevenson [place] Work Phone: [phone]-BvzbhNicholas [place] [address] DO Work Phone: [phone] conjugate vaccine, 13 valent Iker M Hoy Work Phone: [phone]-VeuvnN[place] [address] DO Work Phone: [phone]qw trivalent influenza vaccine, adjuvanted, preservative Tracie Stevenson Hoy Work Phone: [phone]-OinnjN[place] [address] DO Work Phone: [phone] polysaccharide vaccine, 23 valentDougalicia Stevenson Hoy Work Phone: [phone]-HzemjNicholas [place] [address] DO Work Phone: Payers DatePayer CategoryPayerPolicy [id number] Health [id number] [id number]-[id number] 2.840.1.382279.3.57[id number] 2..840.1.804953.3.579.[id number] 2.840.1.463039.3.579.2.52030-84-7898Zzyvdjd8981265 2.16.840.1.899827.3.579.2.67958-61-7144Jviwkts2106028 2..840.1.537293.3.579.2.50294-49-6766Iybcwty1170117 2.16.840.1.372256.3.579.2.47872-48-2511Yjoxhio7253158 2.16.840.1.118482.3.579.2.27637-47-3678Qzfvmpk3476049 2.16.840.1.994681.3.579.2.36006-47-9417Svqeqhu8580948 2.16.840.1.823493.3.579.2.92968-89-1026Bsrefeg9701857 2.16.840.1.076983.3.579.2.43824-32-8887Ckkppmd4615496 2.16.840.1.660223.3.579.2.78362-04-7402Hqyxjtq8115196 2.16.840.1.624654.3.579.2.54908-68-6915Wdrsfvw4860857 2.16.840.1.709589.3.579.2.02111-30-9457Fbzrupl6255435 2.16.840.1.772816.3.579.2.075 1910Myzekft6397095 2.16.840.1.400953.3.579.2.57306-86-0780Ymyoujy6325587 2.16.840.1.488640.3.579.2.16976-70-6142Iqfzqrx1941636 2.16.840.1.245715.3.579.2.86335-38-9717Bfuzziz9550510 2.16.840.1.407897.3.579.2.65585-11-4680Ddqrvzy5843368 2.16.840.1.636429.3.579.2.56348-02-6176Nlmteel0390263 2.16.840.1.260173.3.579.2.94120-86-9874Uuqbnva1594974 2.16.840.1.640555.3.579.2.24132-82-3570Dlpaiag2394218 2.16.840.1.637505.3.579.2.70244-14-9032Ninemvq8987905 2.16.840.1.302354.3.579.2.29202-25-8405Dedsjuc60244134 2.16.840.1.959837.3.579.2.70732-67-0459Jgtbaaj52549076 2.16.840.1.723919.3.579.2.51326-27-4501Pvycxbb34301917 2.16.840.1.830902.3.579.2.017RhqlssfDelmgal984804831893 u2m87x97-pcee-2112-[id number] 2.16.840.1.4814[id number] 2.16840.1.261180.3.579.2.531 Social History DateTypeDetailFacilityTobacco smoking status NHISUnknown if ever smokedOhiohealth CtrStart: 85-08-6423Aar Assigned At [facility] SystemNo alcohol useNo alcohol useLourdes [facility] HeartOd[facility] 250 DO Work Phone: Comment on above:QUIT CIGS 1982;1 CUP COFFEE DAILY, DIET SODA 1 BOTTLE DAILY;Start: 12-19-2021 End: 52-60-9969Qbsiueo smoking statusEx-smoker (finding)[facility] [place] Tobacco smoking statusNeverGeneral Surgery [place] Sex Assigned At [facility] [place] Start: 10-01-2024 End: 59-73-6449ElwNgtp (finding)[facility] Goals DatePatient GoalDesired Activity/State Functional Status ZttaFftlcqcgdfSacahzFsciplgo36-54-9804Oqygidzngt StatusN/AFisher-[facility] Lofgfgss93-68-9022Seyofezeae StatusN/AFisher-[facility] [place] Clinical Notes 01-18-2022 to 05-10-2025 Note Date & ZxveNnpbTbgrsiqi03-72-0729 NoteUT Electrophysiology Consult Note Reason for visit: Syncope/ Afib 05/10/2025 Patient is here today per Gissell Gates CNP request for A-Fib management. Patient states he can feel his a-fib kicking in and he gets tired and SOB and can hear his heart thumping. Patient complains of palpitations/racing heart. ANDERSON, SOB, dizziness/lightheaded with position change, leg swelling. Review of Systems Cardiovascular: Positive for dyspnea on exertion, irregular heartbeat and palpitations. Respiratory: Positive for shortness of breath. Neurological: Positive for dizziness and light-headedness. EKG 05/10/2025 A-fib with varying ventricular rhythm 03/30/24 Pt is s/p PVI+post box isolation [...] on Eliquis. HPI: Kim Moreno is a 75 y.o. year old with past medical history [...] Past Medical History: Diagnosis Date A-fib (CMS/HCC) Abnormal ECG Arrhythmia Awareness under anesthesia Bradycardia Diabetes mellitus (CMS/HCC) HLD (hyperlipidemia) Hypertension Obesity BMI 33.91 Syncope PSH: Past Surgical History: Procedure Laterality Date ABLATION OF DYSRHYTHMIC FOCUS CARDIOVERSION N/A 08/06/2023 CHOLECYSTECTOMY MULTIPLE TOOTH EXTRACTIONS ROTATOR CUFF REPAIR SH: Social Drivers of Health Tobacco Use: Medium Risk (05/10/2025) Patient History Smoking Tobacco Use: Former Smokeless Tobacco Use: Never Passive Exposure: Not on file Alcohol Use: Not on file Financial Resource Strain: Not on file Food Insecurity: Not on file Transportation Needs: Not on file Physical Activity: Not on file Stress: Not on file Social Connections: Not on file Intimate Partner Violence: Unknown (10/09/2023) [place] Safety & Environment Fear of Current or Ex-Partner: Not on file Emotionally Abused: Not on file Physically Abused: Not on file Sexually Abused: Not on file Physically or Sexually Abused: Not on file Depression: Not on file Housing Stability: Not on file Utilities: Not on file Health Literacy: Not on file Allergies: Allergies Allergen Reactions Oxycodone-Acetaminophen Hallucinations Zithromax [Azithromycin] Weight: 104kg Visit Vitals BP 91/71 (BP Location: Right arm, Patient Position: Sitting) Pulse 77 Ht 1.727 m (5' 8 ) Wt 104 kg (230 lb) SpO2 96% BMI 34.97 kg/m??? Smoking Status Former BSA 2.23 m??? Meds: Current Outpatient Medications on File Prior to Visit Medication Sig Dispense Refill aspirin 81 mg chewable tablet Chew 1 tablet (81 mg) in the morning. 90 tablet 3 cetirizine (ZyrTEC) 10 mg tablet Take 10 mg by mouth. Eliquis 5 mg tablet Take 5 mg by mouth in the morning and at bedtime. ferrous sulfate 325 (65 Fe) MG tablet Take 325 mg by mouth with breakfast. furosemide (Lasix) 20 mg tablet Take 1 tablet (20 mg) by mouth in the morning. 90 tablet 3 HumaLOG KwikPen Insulin 100 [...] visit. Physical Exam: Constitutional: Appearance: Normal appearance. He is obese. HENT: Head: Normocephalic and atraumatic. Right Ear: [...] Bowel sounds are normal. Palpations: Abdomen is s (more content not included)...[facility]06-12-2025 NoteCardiovascular Medicine [place] [facility] SUBJECTIVE Chief Complaint Patient presents with Atrial Fibrillation Coronary Artery Disease Hyperlipidemia Kim Moreno is a 74 y.o. male here for [...] as a new patient while admitted to [facility] for c/o syncope. 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 Microscopic hematuria Nocturia Posttraumatic stress disorder Stage 3 chronic kidney disease (CMS/HCC) Acute bronchitis Acute embolism and thrombosis of unspecified deep veins of right lower extremity (CMS/HCC) Allergic rhinitis Arthritis Chronic congestive heart failure (CMS/HCC) Chronic pulmonary embolism (CMS/HCC) Concussion with loss of consciousness <= 30 min Coronary artery disease Deep vein phlebitis and thrombophlebitis of lower extremity, unspecified laterality (CMS/HCC) Fatigue Diabetic renal disease (CMS/HCC) Fracture of coccyx, initial encounter for closed fracture (CMS/HCC) [place] filter in place Impacted cerumen Iron deficiency Multiple injuries Major depressive disorder, single episode, unspecified Overweight Pain in limb Peripheral vertigo Right upper quadrant pain Superficial thrombophlebitis Tobacco user Benign prostatic hyperplasia Edema Hypercholesterolemia Chronic kidney disease, stage III (moderate) ([facility]) Post-traumatic stress disorder Syncope and collapse BMI 35.0-35.9,adult Elevated blood pressure reading Feeling of incomplete bladder emptying 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 ([facility]) Senile solar keratosis Suicidal ideation Abnormal result of cardiovascular function study, unspecified Nonrheumatic mitral (valve) insufficiency Rheumatic tricuspid insufficiency S/P ablation of atrial fibrillation Dementia ([facility]) Anxiety Neoplasm of uncertain behavior of skin of forearm Obesity due to excess calories Cardiovascular stress test abnormal Other chest pain Past Medical History: Diagnosis Date A-fib ([facility]) Abnormal ECG Arrhythmia Awareness under anesthesia Bradycardia Diabetes mellitus ([facility]) HLD (hyperlipidemia) Hypertension Obesity BMI 33.91 Syncope [...] Allergies Allergen Reactions Oxycodone-Acet (more content not included)...[facility] 01-27-2025 NotePatient is here today for a follow up appointment S/P angiogram. Patient states he feels so, so, at night he feels his heart miss firing and can feel thump, thump. Patient states he has occasional SOB, ANDERSON and chest pain, right leg pain. Review of Systems Cardiovascular: Positive for chest pain, dyspnea on exertion, leg swelling and palpitations. Respiratory: Positive for shortness of breath.[facility]05-08-2025 NotePatient: Kim Moreno Procedure Information Date/Time: 12/23/24 1300 Procedure: Coronary angiography - Needs pre-cath hydration before and after - 100ml/hr Location: [facility] / [facility] (Cath) Providers: Ciro Tapia MD Clinical information reviewed: Allergies Meds Physical Exam Airway Mallampati: II TM distance: <3 FB Cardiovascular Rhythm: regular Rate: normal Dental Pulmonary Abdominal Anesthesia Plan ASA 3 other (Conscious ) Anesthetic plan and risks discussed with patient. Use of blood products discussed with patient who consented to blood products. Plan discussed with attending. Additional Equipment [facility]sGre[facility]03-[facility] Note Cardiovascular Medicine [place] [facility] SUBJECTIVE Chief Complaint Patient presents with Atrial Fibrillation Kim Moreno is a 74 y.o. male here for [...] as a new patient while admitted to [facility] for c/o syncope. He was found [...] infarction Hyperkalemia Hyperlipidemia Hypertension Injury of head shelter current use of anticoagulant therapy Microscopic hematuria Nocturia Posttraumatic stress disorder Stage 3 chronic kidney disease ([facility]) Acute bronchitis Acute embolism and thrombosis of unspecified deep veins of right lower extremity ([facility]) Allergic rhinitis Arthritis Chronic congestive heart failure ([facility]) Chronic pulmonary embolism ([facility]) Concussion with loss of consciousness <= 30 min Coronary artery disease Deep vein phlebitis and thrombophlebitis of lower extremity, unspecified laterality ([facility]) Fatigue Diabetic renal disease ([facility]) Fracture of coccyx, initial encounter for closed fracture ([facility]) [place] filter in place Impacted cerumen Iron deficiency Multiple injuries Major depressive disorder, single episode, unspecified Overweight Pain in limb Peripheral vertigo Right upper quadrant pain Superficial thrombophlebitis Tobacco user Benign prostatic hyperplasia Edema Hypercholesterolemia Chronic kidney disease, stage III (moderate) ([facility]) Post-traumatic stress disorder Syncope and collapse BMI 35.0-35.9,adult Elevated blood pressure reading Feeling of incomplete bladder emptying 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 ([facility]) Senile solar keratosis Suicidal ideation Abnormal result of cardiovascular function study, unspecified Nonrheumatic mitral (valve) insufficiency Rheumatic tricuspid insufficiency S/P ablation of atrial fibrillation Dementia ([facility]) Anxiety Neoplasm of uncertain behavior of skin of forearm Obesity due to excess calories Past Medical History: Diagnosis Date A-fib ([facility]) Abnormal ECG Arrhythmia Awareness under anesthesia Bradycardia Diabetes mellitus ([facility]) HLD (hyperlipidemia) Hypertension Obesity BMI 33.91 Syncope [...] Ht 1.727 m (5' (more content not included)...[facility] 10-20-2024 NotePatient here for 6 mo follow up persistent afib, hypertension, and hyperlipidemia. Denies chest pain, SOB, and bleeding on Eliquis. Had routine labs with lipids in Apr 2024. Review of Systems Cardiovascular: Positive for leg swelling (intermittent), palpitations ( not often ) and syncope. Musculoskeletal: Positive for myalgias. Neurological: Positive for light-headedness. All other systems reviewed and are negative.[facility] 09-08-2024 NoteGeneral Surgery Office/Clinic Note Chief Complaint consultation for skin lesion HPI Staff 74 year old male presents on consultation from Dr. Corrigan for skin lesion right arm. Reports noting 3 lesions on right arm approximately one year ago. Verbalized slight increase in size over time. Reports occasional soreness. Verbalized lesion closest to wrist will occasional drainage thick yellow mate rial. Patient on Eliquis for a.fib. History of Present Illness 74 yo male with h/o htn, CAD, atrial fibrillation, on Eliquis, hyperlipidemia, CKD, DVT/PE; bph, dementia; referred for enlarging, painful lesions right forearm; 1 year h/o enlarging lesions x 3 right forearm, scaly, sore at times; no bleeding or ulceration; no h/o skin cancer; on Eliquis daily, noNSAID use; no tobacco use. Review of Systems PHQ Score Initial Depression Screen Score: 0 SCORE ROS - Provider Constitutional: no fever, no sweats, no weight loss. Eyes: no glasses, no blurred vision, no visual loss. ENMT: no dentures, no hoarseness, no swallowing difficulties, no hearing loss, no ear infection(s),no nose bleeds. Cardiovascular: normal blood pressure, no [...] plan excisional biopsy under local anesthesia at [facility], informed consent obtained. Follow-up No qualifying [...] Status SARS-CoV-2 (COVID-19) mRNA BNT-162b2 vax 10/16/2020 RecordedSelect Medical Specialty Hospital - AkronComment on above:Result Comment: Electronically Signed By: MERRICK NARAYANAN, Nick Wyatt\barbara\Date and Time Signed: 09/08/24 16:16 PSA16-92-6510 NotePROCEDURE: XR SHOULDER LT 2V or > HISTORY: Unspecified fall [...] Electronically authenticated by: TONY IYER Date: 2022-05-02 15:01[facility]06-03-2022 Hospital Discharge instructions Follow Up Care 01/18/2022 09:12:56 With:BILL NARAYANAN, Caleb Wyatt, URL Address: [facility] [address] , [place] [address]- [phone] When: Unknown [facility] evaluation + Plan note Future Appointments Appointment Date:01/18/2022 08:30:00 AM Scheduled Provider:Caleb KHAN MD Location:[facility] Appointment Type:URO Office Visit General Surgery [place] Evaluation noteNo assessment information available [facility] Work Phone: History of Present illness Narrative* Mr. Moreno is a 71-year-old male seen back today for follow-up mostly on his atrial fibrillation. His atrial fibrillation is permanent. He has had occasional episodes of chest discomfort and had a fairly recent stress test that was negative. Does not have any specific cardiac complaints today. No symptoms related to his atrial fibrillation. * Physical exam: * Neck: No carotid bruits are heard * Lungs: Clear * Heart: Irregularly irregular without murmurs or extra sounds * Extremities: Trace edema * Recommendation is continuation of current medications. No changes were made. He seems to be reasonably stable from cardiac perspective. He is to return in 6 months for follow-up. [facility] 250 DO Work Phone: Hospital course Narrative No data available for this section General Surgery [place] [facility] Discharge instructions No data available for this section General Surgery [place] Progress note No data available for this section [facility] Summary Purpose Family History No Family History Records FoundUnknown Family Member Name Dates Details Heart problem: Mother Status:ActiveFamily history of malignant neoplasm of prostate: Brother(V16.42, Z80.42) Status:ActiveFamily history of malignant neoplasm of colon: Father, Brother (V16.0, Z80.0) Status:Active Relationship Condition Age at Onset [...] and content) DATE CREATED AUTHOR 02/11/2018 [facility] DATE CREATED AUTHOR AUTHOR'S ORGANIZ ATION 10/29/2018 [facility] DATE CREATED AUTHOR AUTHOR'S ORGANIZ ATION 01/28/2021 [facility] DATE CREATED AUTHOR AUTHOR'S ORGANIZ ATION 09/04/2021 [employer] DATE CREATED AUTHOR AUTHOR'S ORGANIZ ATION 12/15/2022 [facility] DATE CREATED AUTHOR AUTHOR'S ORGANIZ ATION 10/13/2024 [facility] DATE CREATED AUTHOR AUTHOR'S ORGANIZ ATION 03/16/2025 [facility] DATE CREATED AUTHOR AUTHOR'S ORGANIZ ATION 06/14/2025 [facility] Patient Care team informatio n (unrecognized section and content) Team Status: Active Member Role Status Dates Iker Corrigan MD Primary Care Provider Active Start: September 09, 2024 Willie Vargas MDAttatrium health anson ProviderActiveStart: September 09, 2024 Team Status: Inactive Member Role Status Dates Nick Sin MD FACS Attending Provider Active Start: September 28, 2024 End: September 28, 2024 Team Status: Inactive Member Role Status Dates Nick Sin MD FACS Attending Provider Active Start: September [...] BE BASED ON THE PRIMARY CLINICAL RECORDS. [facility] [employer] provides no warranty or guarantee of the accuracy or completeness of information in this document.
[2025-06-15 12:01] LABS: Hematocrit 38.2 % (42.0-54.0); Hemoglobin 12.8 g/dL (14.0-18.0); Immature Granulocytes Abs Auto 0.03 10^3/uL (0.00-0.03); Immature Granulocytes Pct Auto 0.3 % (0.0-0.5); Lymphocytes Absolute Auto 1.6 10^3/uL (1.2-3.8); Mean Corpuscular HGB Conc 33.5 g/dL (29.9-35.2); Mean Corpuscular Hemoglobin 32.7 pg (25.9-34.0); Mean Corpuscular Volume 97.4 fL (80.0-94.0); Platelet Count 186 10^3/uL (150-450); Red Blood Count 3.92 10^6/uL (4.70-6.10); White Blood Count 11.2 10^3/uL (4.0-11.0)
[2025-06-15 12:23] LABS: Anion Gap 12.2; Blood Urea Nitrogen 28.0 mg/dL (7.0-18.0); Calcium 8.6 mg/dL (8.5-10.1); Carbon Dioxide 25.4 mmol/L (21.0-32.0); Chloride 107 mmol/L (98-107); Estimated GFR (African America 52 (>=60 mL/min/1.73m^2); Estimated GFR (Non-African Ame 42 (>=60 mL/min/1.73m^2); Glucose 150 mg/dL (74-106); Potassium 4.6 mmol/L (3.5-5.1); Sodium 140 mmol/L (136-145)
== END 2025-06-15 11:24 | disposition home or self-care (01) ==
PROVIDERS: PCP Family Medicine; Visit Provider Internal Medicine Cardiovascular Disease
DX: I48.91 Unspecified atrial fibrillation (principal)
CPT/HCPCS: 36415; 80048; 85025